=== PATIENT | female | born 1955 | race Caucasian/White ===

== ENCOUNTER → 2018-02-02 10:32 | Outpatient (CLI) | payer OTHER, SELFPAY ==
[2018-02-02 12:29] LABS: Add Manual Diff / Slide Review NO; Basophils Percent Auto 0.5 % (0-2); Eosinophils Percent Auto 2.8 % (2-4); Hematocrit 42.9 % (36-46); Hemoglobin 14.9 g/dL (12.0-16.0); Lymphocytes Percent Auto 44.3 % (25-40); Mean Corpuscular HGB Conc 34.7 % (30-36); Mean Corpuscular Hemoglobin 29.7 PG (26-34); Mean Corpuscular Volume 85.5 fL (80-100); Monocytes Percent Auto 5.2 % (3-14); Neutrophils Absolute Auto 4600 /uL (3000-5900); Neutrophils Percent Auto 47.2 % (50-75); Platelet Count 288 X10^3/uL (150-400); Red Blood Cell Count 5.02 X10^6/uL (4.0-5.2); Red Cell Distribution Width 13.3 % (11.6-14.8); White Blood Cell Count 9.8 X10^3/uL (4.5-11.0)
[2018-02-02 12:55] LABS: Erythrocyte Sedimentation Rate 4 MM/HR (0-20)
[2018-02-02 13:50] LABS: Alanine Aminotransferase 84 IU/L (9-52); Albumin 4.4 g/dL (3.5-5.0); Albumin Globulin Ratio 1.5 (1.0-2.8); Alkaline Phosphatase 64 U/L (38-126); Aspartate Aminotransferase 87 IU/L (14-36); Bilirubin Total 0.4 mg/dL (0.2-1.3); Blood Urea Nitrogen 12 mg/dL (7-17); C-Reactive Protein Quant 0.6 mg/dL (<1.0); Calcium 9.8 mg/dL (8.4-10.2); Carbon Dioxide 26 mmol/L (22-32); Chloride 103 mmol/L (98-107); Estimated Glomerular Filt Rate > 60.0 mL/min (>60); Globulin 2.9 g/dL (1.7-4.1); Glucose 102 mg/dL (80-110); HEMOLYSIS < 15 (0-50); Potassium 4.8 mmol/L (3.4-5.1); Sodium 143 mmol/L (137-145); Total Protein 7.3 g/dL (6.3-8.2)
== END ==
PROVIDERS: Visit Provider Ophthalmology
DX: G43.909 Migraine, unspecified, not intractable, without status migrainosus (principal)
CPT/HCPCS: 36415; 80053; 85025; 85651; 86140

== ENCOUNTER → 2018-02-06 07:07 | Outpatient (CLI) | payer OTHER, SELFPAY ==
--- NOTE | 2018-02-06 | DI.MRI.S_ITS ---
PROCEDURE: MR ANGIO HEAD WO CON INDICATIONS: Intermittent visual disturbances TECHNIQUE: Noncontrast axial 3-D [id number] MR angiogram, with 3-dimensional maximum intensity projection (MIP) reformats of the internal carotid arteries and posterior circulation then performed. COMPARISON: None. FINDINGS: Image quality: Excellent. Anterior circulation: Intracranial internal carotid arteries demonstrate normal size and intraluminal flow signal. The flow within the paired anterior cerebral arteries is normal and symmetric. The flow within the middle cerebral arteries is normal and symmetric. The anterior communicating artery is seen. No stenoses, occlusions, or aneurysms. Posterior circulation: Visualized portions of the vertebral arteries demonstrate normal caliber, and join to form a normal appearing basilar artery. The flow within the posterior cerebral arteries is normal and symmetric. No stenoses, occlusions, or aneurysms. IMPRESSION: Negative examination with no evidence of vascular occlusion, stenosis or dissection. Dictated by: Yesica Chinchilla MD, PhD on 02/06/2018 at 9:21 Approved by: Yesica Chinchilla MD, PhD on 02/06/2018 at 9:23
--- NOTE | 2018-02-06 | DI.MRI.S_ITS ---
PROCEDURE: MR HEAD/BRAIN WO CON INDICATIONS: amaurosis fugax TECHNIQUE: Noncontrast axial T1 spin echo, axial T2 fast spin echo, sagittal and axial FLAIR, coronal T2 fast spin echo, axial gradient echo, axial diffusion and ADC through the brain. COMPARISON: None. FINDINGS: Image quality: Excellent. CSF Spaces: Basal cisterns are patent. No extra-axial fluid collections. Ventricles are normal in shape. Mild, diffuse prominence of CSF space. Brain: No intracranial masses or hemorrhage. Rg/white matter interface is normal. Brainstem appears normal. Diffusion-weighted images demonstrate no acute ischemic insult. Mild periventricular and subcortical white matter chronic microvascular ischemic changes. No areas of encephalomalacia. Normal intravascular flow voids are present. Skull and face: Calvarium has normal marrow signal. Orbits appear normal. Sinuses: Mild bilateral maxillary sinus mucosal thickening. The mastoids are clear. IMPRESSION: 1. No acute intracranial disease process. 2. No areas of acute or chronic infarction. 3. Mild, diffuse cerebral volume loss. 4. Mild periventricular and subcortical white matter chronic microvascular ischemic changes. Dictated by: Yesica Chinchilla MD, PhD on 02/06/2018 at 9:58 Approved by: Yesica Chinchilla MD, PhD on 02/06/2018 at 10:02
== END ==
PROVIDERS: Family Provider Family Medicine; PCP Family Medicine; Visit Provider Ophthalmology
DX: G45.3 Amaurosis fugax (principal)
CPT/HCPCS: 70544; 70551

== ENCOUNTER → 2018-05-16 15:38 | Outpatient (CLI) | payer OTHER, SELFPAY | DX: Z23 Encounter for immunization (principal) | CPT/HCPCS: 90471; 90686 ==

== ENCOUNTER → 2018-12-19 06:59 | Outpatient (CLI) | payer OTHER, SELFPAY ==
[2018-12-19 07:43] LABS: Add Manual Diff / Slide Review NO; Basophils Absolute Auto 0 /uL (0-100); Basophils Percent Auto 0.5 % (0-2); Eosinophils Absolute Auto 200 /uL (0-450); Eosinophils Percent Auto 2.2 % (2-4); Hematocrit 41.6 % (36-46); Hemoglobin 14.3 g/dL (12.0-16.0); Lymphocytes Absolute Auto 3500 /uL (1100-4500); Lymphocytes Percent Auto 45.2 % (25-40); Mean Corpuscular HGB Conc 34.3 % (30-36); Mean Corpuscular Hemoglobin 29.4 PG (26-34); Mean Corpuscular Volume 85.6 fL (80-100); Monocytes Absolute Auto 400 /uL (0-900); Monocytes Percent Auto 4.9 % (3-14); Neutrophils Absolute Auto 3600 /uL (1500-7000); Neutrophils Percent Auto 47.2 % (50-75); Platelet Count 277 X10^3/uL (150-400); Red Blood Cell Count 4.86 X10^6/uL (4.0-5.2); Red Cell Distribution Width 13.3 % (11.6-14.8); White Blood Cell Count 7.6 X10^3/uL (4.5-11.0)
[2018-12-19 07:52] LABS: Alanine Aminotransferase 40 IU/L (9-52); Albumin 4.2 g/dL (3.5-5.0); Albumin Globulin Ratio 1.4 (1.0-2.8); Alkaline Phosphatase 48 U/L (38-126); Aspartate Aminotransferase 48 IU/L (14-36); Bilirubin Total 0.4 mg/dL (0.2-1.3); Blood Urea Nitrogen 13 mg/dL (7-17); Calcium 8.9 mg/dL (8.4-10.2); Carbon Dioxide 29 mmol/L (22-32); Chloride 102 mmol/L (98-107); Estimated Glomerular Filt Rate > 60.0 mL/min (>60); Globulin 2.9 g/dL (1.7-4.1); Glucose 148 mg/dL (80-110); HEMOLYSIS < 15 (0-50); Potassium 3.9 mmol/L (3.4-5.1); Sodium 140 mmol/L (137-145); Total Protein 7.1 g/dL (6.3-8.2)
[2018-12-19 08:22] LABS: Hemoglobin A1C% w Est Avg Glu 6.4 % (4.0-6.0)
== END ==
PROVIDERS: Family Provider Family Medicine; PCP Family Medicine; Visit Provider Family Medicine
DX: E11.9 Type 2 diabetes mellitus without complications (principal); R53.1 Weakness; Z00.00 Encounter for general adult medical examination without abnormal findings
CPT/HCPCS: 36415; 80053; 83036; 85025

== ENCOUNTER → 2019-05-29 11:25 | Outpatient (CLI) | payer OTHER, SELFPAY | PROVIDERS: PCP Family Medicine | DX: Z23 Encounter for immunization (principal) | CPT/HCPCS: 90471; 90686 ==

== ENCOUNTER 2019-11-07 10:30 | Outpatient (RCR) | payer OTHER, SELFPAY ==
--- NOTE | 2019-10-31 16:51 | PT.OIE ---
Current Diagnoses Unspecified disorder of synovium and tendon, left shoulder (10/31/19) Bicipital tendinitis, left shoulder (10/31/19) Abnormal posture (10/31/19) Past Medical History (Last Reviewed 12/24/18 @ 12:17 by Xiomara Diego DO) Diabetes mellitus (Chronic) Hyperlipidemia (Chronic) Past Surgical History (Last Reviewed 12/24/18 @ 12:17 by Xiomara Diego DO) Status post delivery (~1983) Status post delivery (~1985) Status post delivery (~1987) Status post cholecystectomy (~2013) Visit Care Team Role Provider Type Xiomara Diego DO Attending Provider Physician Primary Care Provider Referring Provider Specialty: [facility] Address: [address] [place] [address], [facility] Email: [email or web address] Physical Therapy Initial Evaluation PT-OP-A Visit Information Start: 10/31/19 08:38 Freq: Status: Active Protocol: Document 10/31/19 08:40 AW (Rec: 10/31/19 16:08 AW [id number]) Out-Patient Physical Therapy Visit Information Visit Information Visit Type Initial Evaluation Visit Start Time 10:30 Visit Stop Time 11:15 Total Visit Minutes 45 Visit Number 1/ Number of SALES DEMONSTRATOR Visits 0 Evaluation Information Evaluation Date 10/31/19 PT-OP-B Current Condition Start: 10/31/19 08:38 Freq: Status: Active Protocol: Document 10/31/19 08:40 AW (Rec: 10/31/19 16:08 AW [id number]) Current Condition History of Current Condition Onset Date 2 years Current Complaints shoulder pain left worse than right History of Current Condition 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 She has a history of bilateral carpal tunnel syndrome since 1 year ago and right biceps tendon tear ~3 years ago. Ibuprofen helps somewhat. She works 12 hour shifts which aggravate her shoulder pain. She characterizes the pain as achey. Lifting her arms for very long increases the ache. Achiness disturbs her sleep as her hands and arms go numb. She reports sleeping primarily on her side for ~6 hours per night but always interrupted. Prior Treatments and Tests Karolina has had steroid injections in the last year with limited relief. She had an MRI at [facility] in August, but PT did not have access to the report at time of evaluation. Treatment Goals Patient/Caregiver Goals Avoid surgery. Less pain. Currently taking 800 mg ibuprofen twice daily but would like to take less. 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 Karolina is 5 feet tall and states every shelf is high for me. Current Functional Impairments (Reported) Functional Limitations- ADL's Increased difficulty with tasks involving sustained overhead motion such as washing her hair. Also having difficulty reaching behind her back. Functional Limitations- Work/School Increased difficulty with common job tasks such as reaching overhead to hang IV meds or to lift supplies to shelves.I Personal Factors Other Personal Factors That May Effect - interrupted sleep, poor Therapy/Recovery sleep quality PT-OP-C Subjective Start: 10/31/19 08:38 Freq: Status: Active Protocol: Document 10/31/19 08:40 AW (Rec: 10/31/19 16:08 AW [id number]) Patient Questionnaires Quick Dash- Upper Extremity Quick Dash UE Score 29.5 Quick Dash UE Impairment 20 to 39% Impaired (Score 20- 39) PT-OP-H Neuro Start: 10/31/19 08:38 Freq: Status: Active Protocol: Document 10/31/19 08:40 AW (Rec: 10/31/19 16:50 AW [id number]) Sensation Evaluation Gross Sensation Gross Sensation Left UE Impaired,Right UE Impaired Comments Summary Comments Bilateral carpal tunnel syndrome with EMG records not available to this therapist. CTS was treated conservatively . Pt also reports numbness/ tingling of her upper extremities depending on sleeping position. Unable to reproduce symptoms on exam. Deep Tendon Reflex & Clonus Assessment Deep Tendon Reflex Bilateral Tricep Deep Tendon Reflex 1+ Diminished Bilateral Bicep Deep Tendon Reflex 1+ Diminished PT-OP-J Posture/Palpation/Skin Start: 10/31/19 08:38 Freq: Status: Active Protocol: Document 10/31/19 08:40 AW (Rec: 10/31/19 16:50 AW [id number]) Posture Evaluation Position Sitting Evaluation View Lateral Head/C-Spine Posture Forward Head Shoulder Posture (L) Rounded,(R) Rounded,(L) Elevated Scapula Posture (L) Protracted,(R) Protracted Comments Posture Comments Scapular medial borders >3 finger widths from spinous processes, excessively protracted. Forward head, rounded shoulders. 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 Pain provoked with left side bending. Shoulder Goniometric Range of Motion Shoulder Left Active Testing Position Sitting Flexion 95 Extension 55 Abduction 110 External Rotation at 0 degrees Abduction 35 Internal Rotation Behind Back (text) L3 Right Active Testing Position Sitting Flexion 135 Extension 65 Abduction 130 External Rotation at 0 degrees Abduction 70 Internal Rotation Behind Back (text) T10 Shoulder ROM Limitations Shoulder ROM Limitations Muscle Weakness,Pain Elbow/Forearm Range of Motion Elbow/Forearm ROM Limitations Comments Elbow flexion/estension, supination/pronation WNL PT-OP-M Strength Start: 10/31/19 08:38 Freq: Status: Active Protocol: Document 10/31/19 08:40 AW (Rec: 10/31/19 16:50 AW [id number]) Scapula Strength Scapula Manual Muscle Testing Left Elevation (C4) 5 Normal Adduction 4 Good Abduction 4 Good Depression 4 Good Shoulder Strength Shoulder Manual Muscle Testing Right Flexion 4+ Good+ Abduction (C5) 4+ Good+ External Rotation 4+ Good+ Internal Rotation 4+ Good+ Left Flexion 4- Good- Abduction (C5) 4- Good- External Rotation 3+ Fair+ Internal Rotation 4 Good PT-OP-Q Treatments Start: 10/31/19 08:38 Freq: Status: Active Protocol: Document 10/31/19 08:40 AW (Rec: 10/31/19 16:08 AW [id number]) Therapeutic Exercises Sitting Exercises scapular retraction Sitting Exercise Name scapular retraction Reps/Minutes 10 reps x 2 Standing Exercises isometric GH external rotation Standing Exercise Name isometric GH external rotation Side left Equipment Used door Reps/Minutes 12 reps isometric GH internal rotation Standing Exercise Name isometric GH internal rotation Side left Equipment Used door, stabilized Reps/Minutes 12 reps PT-OP-T Assessment and Plan Start: 10/31/19 08:38 Freq: Status: Active Protocol: Document 10/31/19 08:40 AW (Rec: 10/31/19 16:50 AW [id number]) Physical Therapy Assessment Rehab Potential Rehabilitation Potential Good Evaluation Complexity Number of Personal Factors/Comorbidities 1-2 Number of Body Systems Impaired 1-2 Clinical Presentation at Evaluation Stable Impairments Impairments Functional Activities,Pain, Posture,ROM,Sensation,Soft Tissue Mobility,Strength Goals Four Impairment ROM Short Term Goal (STG) Pt will improve active left GH flexion to 110 degrees for increased ease of self care STG Duration 12/05/2019 Topographical Field Assistant Goal (LTG) Pt will improve active left GH flexion to 125 or greater for improved ability to complete work functions LTG Duration 01/09/2020 Three Impairment 29.5% impairment on quickDASH Short Term Goal (STG) Pt will score 22% or less impairment on QuickDASH to demonstrate improved daily function STG Duration 12/05/2019 Penitentiary Goal (LTG) Pt will score 14% or less impairment on QuickDASH to demonstrate improved daily function LTG Duration 01/09/2020 Two Impairment difficulty reaching overhead Short Term Goal (STG) Pt will be able to hang IV meds with right or left arm without increase in pain STG Duration 12/05/2019 Penitentiary Goal (LTG) Pt will be able to lift 10 pounds overhead to improve her ability to lift supplies to high shelves at work LTG Duration 01/09/2020 One Impairment Pt has no HEP Short Term Goal (STG) Pt will be independent with HEP for support of therapy services provided in clinic STG Duration 12/05/2019 Topographical Field Assistant Goal (LTG) Pt will be independent with maintenance HEP to sustain gains made with therapy LTG Duration 01/09/2020 Assessment Summary Assessment Karolina presents to outpatient PT as a low complexity evaluation with complaints of bilateral shoulder pain (left greater than right) of insidious onset, worsening over the past two years. 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 On exam, impairments include decreased GH ROM bilaterally with significant impairments in left GH active flexion, abduction, and rotation as well as strength impairments in all planes. Habitual postures are also contributing to ongoing pain. These impairments are degrading her ability to perform her work functions and to manage her ADL's. She will benefit from skilled PT to address these impairments improve her ability to participate in ADL' s and work life. Physical Therapy Plan Frequency and Duration Frequency of Treatment 2x/Week Duration of Treatment 10 weeks Plan of Care Start Date 10/31/19 Plan of Care End Date 01/09/20 Therapeutic Interventions Therapeutic Interventions Home Exercise Program,Joint Mobilizations,Manual Therapy, Neuromuscular Re-education, Patient/Caregiver Education, Self-Care/Home Management, Sensory Integration,Soft Tissue Mobilization,Taping, Therapeutic Activities, Therapeutic Exercises Modalities Cold Pack/Ice Massage,Electric Stimulation Next Visit Focus/Plan Next Note Type Treatment Note Next Visit Plan - assess response to initial HEP - assess needs for manual therapy - progress ther ex as tolerated
--- NOTE | 2019-10-31 16:52 | PT.OPPOC ---
Physical, Occupational & Speech Therapy At [facility] Current Diagnoses Unspecified disorder of synovium and tendon, left shoulder (10/31/19) Bicipital tendinitis, left shoulder (10/31/19) Abnormal posture (10/31/19) Visit Care Team Role Provider Type Xiomara Diego DO Attending Provider Physician Primary Care Provider Referring Provider Specialty: [facility] Address: [address] [place] [address], [facility] [place], [address] Email: [email or web address] Plan Of Care PT-OP-T Assessment and Plan Start: 10/31/19 08:38 Freq: Status: Active Protocol: Document 10/31/19 08:40 AW (Rec: 10/31/19 16:50 AW [id number]) Physical Therapy Assessment Rehab Potential Rehabilitation Potential Good Evaluation Complexity Number of Personal Factors/Comorbidities 1-2 Number of Body Systems Impaired 1-2 Clinical Presentation at Evaluation Stable Impairments Impairments Functional Activities,Pain, Posture,ROM,Sensation,Soft Tissue Mobility,Strength Goals Four Impairment ROM Short Term Goal (STG) Pt will improve active left GH flexion to 110 degrees for increased ease of self care STG Duration 12/05/2019 Propeller Layout Worker Goal (LTG) Pt will improve active left GH flexion to 125 or greater for improved ability to complete work functions LTG Duration 01/09/2020 Three Impairment 29.5% impairment on quickDASH Short Term Goal (STG) Pt will score 22% or less impairment on QuickDASH to demonstrate improved daily function STG Duration 12/05/2019 Propeller Layout Worker Goal (LTG) Pt will score 14% or less impairment on QuickDASH to demonstrate improved daily function LTG Duration 01/09/2020 Two Impairment difficulty reaching overhead Short Term Goal (STG) Pt will be able to hang IV meds with right or left arm without increase in pain STG Duration 12/05/2019 Propeller Layout Worker Goal (LTG) Pt will be able to lift 10 pounds overhead to improve her ability to lift supplies to high shelves at work LTG Duration 01/09/2020 One Impairment Pt has no HEP Short Term Goal (STG) Pt will be independent with HEP for support of therapy services provided in clinic STG Duration 12/05/2019 Detention Goal (LTG) Pt will be independent with maintenance HEP to sustain gains made with therapy LTG Duration 01/09/2020 Assessment Summary Assessment Karolina presents to outpatient PT as a low complexity evaluation with complaints of bilateral shoulder pain (left greater than right) of insidious onset, worsening over the past two years. 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 On exam, impairments include decreased GH ROM bilaterally with significant impairments in left GH active flexion, abduction, and rotation as well as strength impairments in all planes. Habitual postures are also contributing to ongoing pain. These impairments are degrading her ability to perform her work functions and to manage her ADL's. She will benefit from skilled PT to address these impairments improve her ability to participate in ADL' s and work life. Physical Therapy Plan Frequency and Duration Frequency of Treatment 2x/Week Duration of Treatment 10 weeks Plan of Care Start Date 10/31/19 Plan of Care End Date 01/09/20 Therapeutic Interventions Therapeutic Interventions Home Exercise Program,Joint Mobilizations,Manual Therapy, Neuromuscular Re-education, Patient/Caregiver Education, Self-Care/Home Management, Sensory Integration,Soft Tissue Mobilization,Taping, Therapeutic Activities, Therapeutic Exercises Modalities Cold Pack/Ice Massage,Electric Stimulation Next Visit Focus/Plan Next Note Type Treatment Note Next Visit Plan - assess response to initial HEP - assess needs for manual therapy - progress ther ex as tolerated Plan of Care Dates Plan of Care Start Date 10/31/19 Plan of Care End Date 01/09/20 Electronically Signed by: Celina Way, PT 10/31/19 0665 Please Sign and Return: I have reviewed this Plan of Care and certify that the skilled therapy services above are required to meet the patient?s needs. Physician Signature Date Printed Name and Credentials Clinical Instructor Signature Printed Name and Credentials
--- NOTE | 2019-11-05 08:45 | PT-OP ANOTE ---
Pt called and cancelled prior to today's appt, conflict with work schedule. PMO ANALYST called and left message reminding next appt with her PT on 11/07/19 at 1030.
--- NOTE | 2019-11-07 11:52 | PT.OTN ---
Current Diagnoses Unspecified disorder of synovium and tendon, left shoulder (11/07/19) Bicipital tendinitis, left shoulder (11/07/19) Abnormal posture (11/07/19) Physical Therapy Treatment Note PT-OP-A Visit Information Start: 10/31/19 08:38 Freq: Status: Active Protocol: Document 11/07/19 10:31 AW (Rec: 11/07/19 11:52 AW [id number]) Out-Patient Physical Therapy Visit Information Visit Information Visit Type Treatment Note Visit Start Time 10:30 Visit Stop Time 11:15 Total Visit Minutes 45 Visit Number 2/6 Evaluation Information Evaluation Date 10/31/19 PT-OP-B Current Condition Start: 10/31/19 08:38 Freq: Status: Active Protocol: Document 10/31/19 08:40 AW (Rec: 10/31/19 16:08 AW [id number]) Current Condition History of Current Condition Onset Date 2 years Current Complaints shoulder pain left worse than right History of Current Condition 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 She has a history of bilateral carpal tunnel syndrome since 1 year ago and right biceps tendon tear ~3 years ago. Ibuprofen helps somewhat. She works 12 hour shifts which aggravate her shoulder pain. She characterizes the pain as achey. Lifting her arms for very long increases the ache. Achiness disturbs her sleep as her hands and arms go numb. She reports sleeping primarily on her side for ~6 hours per night but always interrupted. Prior Treatments and Tests Karolina has had steroid injections in the last year with limited relief. She had an MRI at [facility] in August, but PT did not have access to the report at time of evaluation. Treatment Goals Patient/Caregiver Goals Avoid surgery. Less pain. Currently taking 800 mg ibuprofen twice daily but would like to take less. 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 Karolina is 5 feet tall and states every shelf is high for me. Current Functional Impairments (Reported) Functional Limitations- ADL's Increased difficulty with tasks involving sustained overhead motion such as washing her hair. Also having difficulty reaching behind her back. Functional Limitations- Work/School Increased difficulty with common job tasks such as reaching overhead to hang IV meds or to lift supplies to shelves.I Personal Factors Other Personal Factors That May Effect - interrupted sleep, poor Therapy/Recovery sleep quality PT-OP-C Subjective Start: 10/31/19 08:38 Freq: Status: Active Protocol: Document 11/07/19 10:31 AW (Rec: 11/07/19 11:52 AW [id number]) OP-PT Subjective Patient Comments Patient Comments Pt has been working 16 hour and longer shifts due to understaffing but states she has been able to work on her HEP almost daily and already feels more aware of her posture, especially during work at the computer. resisted ER with level 1 TB - cues for scap retract rows shoulder extension PT-OP-H Neuro Start: 10/31/19 08:38 Freq: Status: Active Protocol: Document 10/31/19 08:40 AW (Rec: 10/31/19 16:50 AW [id number]) Sensation Evaluation Gross Sensation Gross Sensation Left UE Impaired,Right UE Impaired Comments Summary Comments Bilateral carpal tunnel syndrome with EMG records not available to this therapist. CTS was treated conservatively . Pt also reports numbness/ tingling of her upper extremities depending on sleeping position. Unable to reproduce symptoms on exam. Deep Tendon Reflex & Clonus Assessment Deep Tendon Reflex Bilateral Tricep Deep Tendon Reflex 1+ Diminished Bilateral Bicep Deep Tendon Reflex 1+ Diminished PT-OP-J Posture/Palpation/Skin Start: 10/31/19 08:38 Freq: Status: Active Protocol: Document 10/31/19 08:40 AW (Rec: 10/31/19 16:50 AW [id number]) Posture Evaluation Position Sitting Evaluation View Lateral Head/C-Spine Posture Forward Head Shoulder Posture (L) Rounded,(R) Rounded,(L) Elevated Scapula Posture (L) Protracted,(R) Protracted Comments Posture Comments Scapular medial borders >3 finger widths from spinous processes, excessively protracted. Forward head, rounded shoulders. 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 Pain provoked with left side bending. Shoulder Goniometric Range of Motion Shoulder Left Active Testing Position Sitting Flexion 95 Extension 55 Abduction 110 External Rotation at 0 degrees Abduction 35 Internal Rotation Behind Back (text) L3 Right Active Testing Position Sitting Flexion 135 Extension 65 Abduction 130 External Rotation at 0 degrees Abduction 70 Internal Rotation Behind Back (text) T10 Shoulder ROM Limitations Shoulder ROM Limitations Muscle Weakness,Pain Elbow/Forearm Range of Motion Elbow/Forearm ROM Limitations Comments Elbow flexion/estension, supination/pronation WNL PT-OP-M Strength Start: 10/31/19 08:38 Freq: Status: Active Protocol: Document 10/31/19 08:40 AW (Rec: 10/31/19 16:50 AW [id number]) Scapula Strength Scapula Manual Muscle Testing Left Elevation (C4) 5 Normal Adduction 4 Good Abduction 4 Good Depression 4 Good Shoulder Strength Shoulder Manual Muscle Testing Right Flexion 4+ Good+ Abduction (C5) 4+ Good+ External Rotation 4+ Good+ Internal Rotation 4+ Good+ Left Flexion 4- Good- Abduction (C5) 4- Good- External Rotation 3+ Fair+ Internal Rotation 4 Good PT-OP-Q Treatments Start: 10/31/19 08:38 Freq: Status: Active Protocol: Document 11/07/19 10:31 AW (Rec: 11/07/19 11:52 AW [id number]) Therapeutic Exercises Supine Exercises AAROM abduction Supine Exercise Name AAROM abduction Side left Equipment Used dowel Reps/Minutes 2 minutes Comments cues to avoid painful range AAROM flexion Supine Exercise Name AAROM flexion Side left Equipment Used dowel Reps/Minutes 2 minutes Sitting Exercises resisted external rotation Sitting Exercise Name resisted external rotation Side bilateral Resistance level 1 Equipment Used TB Reps/Minutes 10 reps x 2 Comments cues to reduce tension on band or to decrease ER ROM to tolerance cervical retraction Sitting Exercise Name cervical retraction Equipment Used towel Reps/Minutes 10 reps x 2 Comments towel at base of c-spine held with tension in front of trunk levator scap stretch Sitting Exercise Name levator scap stretch Side bilateral Reps/Minutes 2 minutes upper trap stretch Sitting Exercise Name upper trap stretch Side bilateral Reps/Minutes 2 minutes Comments cues for contralateral shoulder depression pulleys Sitting Exercise Name AAROM flexion, abduction, scaption Reps/Minutes 4 minutes Comments cues to avoid painful range Standing Exercises long walk Standing Exercise Name long walk Side bilateral Resistance 3# Equipment Used dumbbells Reps/Minutes 50 foot lap x 2 Comments to facilitate rotator cuff activation isometric ER/IR walkout Standing Exercise Name isometric ER/IR walkout Side left Resistance level 1 Equipment Used TB Comments poorly tolerated; discontinued resisted GH extension Standing Exercise Name resisted GH extension Side bilateral Resistance level 1 Equipment Used TB Reps/Minutes 10 reps x 2 resisted rows Standing Exercise Name resisted rows Side bilateral Resistance level 1 Equipment Used TB Reps/Minutes 10 reps x 2 Comments cues for scap retraction Manual Therapy Treatment Soft Tissue Mobilization cervical paraspinals/suboccipitals Body Location cervical paraspinals/ suboccipitals Mobilization Type Myofascial Release,Sustained Pressure Intensity/Depth Moderate Body Position Hooklying upper traps/lev scap Body Location upper traps/lev scap Mobilization Type Myofascial Release,Sustained Pressure Intensity/Depth Moderate Body Position Hooklying PT-OP-T Assessment and Plan Start: 10/31/19 08:38 Freq: Status: Active Protocol: Document 11/07/19 10:31 AW (Rec: 11/07/19 11:52 AW [id number]) Physical Therapy Assessment Goals Four Impairment ROM Short Term Goal (STG) Pt will improve active left GH flexion to 110 degrees for increased ease of self care STG Duration 12/05/2019 Intermediate Goal (LTG) Pt will improve active left GH flexion to 125 or greater for improved ability to complete work functions LTG Duration 01/09/2020 Three Impairment 29.5% impairment on quickDASH Short Term Goal (STG) Pt will score 22% or less impairment on QuickDASH to demonstrate improved daily function STG Duration 12/05/2019 Intermediate Goal (LTG) Pt will score 14% or less impairment on QuickDASH to demonstrate improved daily function LTG Duration 01/09/2020 Two Impairment difficulty reaching overhead Short Term Goal (STG) Pt will be able to hang IV meds with right or left arm without increase in pain STG Duration 12/05/2019 Urgent Care Technician Goal (LTG) Pt will be able to lift 10 pounds overhead to improve her ability to lift supplies to high shelves at work LTG Duration 01/09/2020 One Impairment Pt has no HEP Short Term Goal (STG) Pt will be independent with HEP for support of therapy services provided in clinic STG Duration 12/05/2019 Intermediate Goal (LTG) Pt will be independent with maintenance HEP to sustain gains made with therapy LTG Duration 01/09/2020 Assessment Summary Assessment Karolina has increased awareness of habitual posture after one week of limited HEP. Tolerance for AAROM is limited and pt has a tendency to push through pain, requiring frequent cues to stay out of painful range. She presents with a noticable step off at her cervical- thoracic junction indicating impairment in thoracic extension and will benefit from therapy focused on increasing thoracic extension in order to facilitate upper extremity elevation. Physical Therapy Plan Frequency and Duration Frequency of Treatment 2x/Week Duration of Treatment 10 weeks Plan of Care Start Date 10/31/19 Plan of Care End Date 01/09/20 Therapeutic Interventions Therapeutic Interventions Home Exercise Program,Joint Mobilizations,Manual Therapy, Neuromuscular Re-education, Patient/Caregiver Education, Self-Care/Home Management, Sensory Integration,Soft Tissue Mobilization,Taping, Therapeutic Activities, Therapeutic Exercises Modalities Cold Pack/Ice Massage,Electric Stimulation Next Visit Focus/Plan Next Note Type Treatment Note Next Visit Plan - assess response to HEP - progress ther ex as tolerated - progress thoracic extension
--- NOTE | 2020-01-30 12:50 | PT.OPDS ---
Current Diagnoses Unspecified disorder of synovium and tendon, left shoulder (11/07/19) Bicipital tendinitis, left shoulder (11/07/19) Abnormal posture (11/07/19) Visit Care Team Role Provider Type Xiomara Diego DO Attending Provider Physician Primary Care Provider Referring Provider Specialty: Family Practice Address: [address] [place] [address] [place], [address] Email: 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 She has a history of bilateral carpal tunnel syndrome since 1 year ago and right biceps tendon tear ~3 years ago. Ibuprofen helps somewhat. She works 12 hour shifts which aggravate her shoulder pain. She characterizes the pain as achey. Lifting her arms for very long increases the ache. Achiness disturbs her sleep as her hands and arms go numb. She reports sleeping primarily on her side for ~6 hours per night but always interrupted. Prior Treatments and Tests Karolina has had steroid injections in the last year with limited relief. She had an MRI at [facility] in August, but PT did not have access to the report at time of evaluation. Treatment Goals Patient/Caregiver Goals Avoid surgery. Less pain. Currently taking 800 mg ibuprofen twice daily but would like to take less. 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 Karolina is 5 feet tall and states every shelf is high for me. Current Functional Impairments (Reported) Functional Limitations- ADL's Increased difficulty with tasks involving sustained overhead motion such as washing her hair. Also having difficulty reaching behind her back. Functional Limitations- Work/School Increased difficulty with common job tasks such as reaching overhead to hang IV meds or to lift supplies to shelves.I Personal Factors Other Personal Factors That May Effect - interrupted sleep, poor Therapy/Recovery sleep quality PT-OP-C Subjective Start: 10/31/19 08:38 Freq: Status: Active Protocol: Document 11/07/19 10:31 AW (Rec: 11/07/19 11:52 AW [id number]) OP-PT Subjective Patient Comments Patient Comments Pt has been working 16 hour and longer shifts due to understaffing but states she has been able to work on her HEP almost daily and already feels more aware of her posture, especially during work at the computer. resisted ER with level 1 TB - cues for scap retract rows shoulder extension PT-OP-H Neuro Start: 10/31/19 08:38 Freq: Status: Active Protocol: Document 10/31/19 08:40 AW (Rec: 10/31/19 16:50 AW [id number]) Sensation Evaluation Gross Sensation Gross Sensation Left UE Impaired,Right UE Impaired Comments Summary Comments Bilateral carpal tunnel syndrome with EMG records not available to this therapist. CTS was treated conservatively . Pt also reports numbness/ tingling of her upper extremities depending on sleeping position. Unable to reproduce symptoms on exam. Deep Tendon Reflex & Clonus Assessment Deep Tendon Reflex Bilateral Tricep Deep Tendon Reflex 1+ Diminished Bilateral Bicep Deep Tendon Reflex 1+ Diminished PT-OP-J Posture/Palpation/Skin Start: 10/31/19 08:38 Freq: Status: Active Protocol: Document 10/31/19 08:40 AW (Rec: 10/31/19 16:50 AW [id number]) Posture Evaluation Position Sitting Evaluation View Lateral Head/C-Spine Posture Forward Head Shoulder Posture (L) Rounded,(R) Rounded,(L) Elevated Scapula Posture (L) Protracted,(R) Protracted Comments Posture Comments Scapular medial borders >3 finger widths from spinous processes, excessively protracted. Forward head, rounded shoulders. 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 Pain provoked with left side bending. Shoulder Goniometric Range of Motion Shoulder Left Active Testing Position Sitting Flexion 95 Extension 55 Abduction 110 External Rotation at 0 degrees Abduction 35 Internal Rotation Behind Back (text) L3 Right Active Testing Position Sitting Flexion 135 Extension 65 Abduction 130 External Rotation at 0 degrees Abduction 70 Internal Rotation Behind Back (text) T10 Shoulder ROM Limitations Shoulder ROM Limitations Muscle Weakness,Pain Elbow/Forearm Range of Motion Elbow/Forearm ROM Limitations Comments Elbow flexion/estension, supination/pronation WNL PT-OP-M Strength Start: 10/31/19 08:38 Freq: Status: Active Protocol: Document 10/31/19 08:40 AW (Rec: 10/31/19 16:50 AW [id number]) Scapula Strength Scapula Manual Muscle Testing Left Elevation (C4) 5 Normal Adduction 4 Good Abduction 4 Good Depression 4 Good Shoulder Strength Shoulder Manual Muscle Testing Right Flexion 4+ Good+ Abduction (C5) 4+ Good+ External Rotation 4+ Good+ Internal Rotation 4+ Good+ Left Flexion 4- Good- Abduction (C5) 4- Good- External Rotation 3+ Fair+ Internal Rotation 4 Good PT-OP-T Assessment and Plan Start: 10/31/19 08:38 Freq: Status: Active Protocol: Document 01/30/20 12:48 AW (Rec: 04/17/20 12:50 AW [id number]) Physical Therapy Assessment Rehab Potential Rehabilitation Potential Good Evaluation Complexity Number of Personal Factors/Comorbidities 1-2 Number of Body Systems Impaired 1-2 Clinical Presentation at Evaluation Stable Impairments Impairments Functional Activities,Pain, Posture,ROM,Sensation,Soft Tissue Mobility,Strength Goals Four Impairment ROM Short Term Goal (STG) Pt will improve active left GH flexion to 110 degrees for increased ease of self care STG Duration 12/05/2019 Compliance Quality Performance Analyst Goal (LTG) Pt will improve active left GH flexion to 125 or greater for improved ability to complete work functions LTG Duration 01/09/2020 Three Impairment 29.5% impairment on quickDASH Short Term Goal (STG) Pt will score 22% or less impairment on QuickDASH to demonstrate improved daily function STG Duration 12/05/2019 [facility] Goal (LTG) Pt will score 14% or less impairment on QuickDASH to demonstrate improved daily function LTG Duration 01/09/2020 Two Impairment difficulty reaching overhead Short Term Goal (STG) Pt will be able to hang IV meds with right or left arm without increase in pain STG Duration 12/05/2019 [facility] Goal (LTG) Pt will be able to lift 10 pounds overhead to improve her ability to lift supplies to high shelves at work LTG Duration 01/09/2020 One Impairment Pt has no HEP Short Term Goal (STG) Pt will be independent with HEP for support of therapy services provided in clinic STG Duration 12/05/2019 [facility] Goal (LTG) Pt will be independent with maintenance HEP to sustain gains made with therapy LTG Duration 01/09/2020 Assessment Summary Assessment Pt requests discharge from therapy services Physical Therapy Plan Discharge Physical Therapy Discharge Reasons Patient Request Discharge Comments Pt not seen since October due to COVID 19 shutdown. Pt called to request discharge from this plan of care.
== END 2020-04-23 09:02 ==
LOC: PHYS 10:30
PROVIDERS: PCP Family Medicine; Referring Provider Family Medicine; Visit Provider Family Medicine
DX: M67.912 Unspecified disorder of synovium and tendon, left shoulder (principal); M75.22 Bicipital tendinitis, left shoulder; R29.3 Abnormal posture
CPT/HCPCS: 97110; 97140; 97161

== ENCOUNTER → 2019-12-18 06:45 | Outpatient (CLI) | payer OTHER, SELFPAY ==
[2019-12-18 08:03] LABS: Add Manual Diff / Slide Review NO; Basophils Absolute Auto 0 /uL (0-100); Basophils Percent Auto 0.4 % (0-2); Eosinophils Absolute Auto 200 /uL (0-450); Eosinophils Percent Auto 2.8 % (2-4); Hematocrit 41.7 % (36-46); Hemoglobin 14.7 g/dL (12.0-16.0); Lymphocytes Absolute Auto 3600 /uL (1100-4500); Lymphocytes Percent Auto 42.7 % (25-40); Mean Corpuscular HGB Conc 35.3 % (30-36); Mean Corpuscular Hemoglobin 29.8 PG (26-34); Mean Corpuscular Volume 84.4 fL (80-100); Monocytes Absolute Auto 400 /uL (0-900); Monocytes Percent Auto 4.7 % (3-14); Neutrophils Absolute Auto 4100 /uL (1500-7000); Neutrophils Percent Auto 49.4 % (50-75); Platelet Count 278 X10^3/uL (150-400); Red Blood Cell Count 4.94 X10^6/uL (4.0-5.2); Red Cell Distribution Width 13.3 % (11.6-14.8); White Blood Cell Count 8.3 X10^3/uL (4.5-11.0)
[2019-12-18 08:22] LABS: Alanine Aminotransferase 59 IU/L (<35); Albumin 4.2 g/dL (3.5-5.0); Albumin Globulin Ratio 1.4 (1.0-2.8); Alkaline Phosphatase 55 U/L (38-126); Aspartate Aminotransferase 76 IU/L (14-36); BUN Creatinine Ratio 32.7 (6-22); Bilirubin Total 0.4 mg/dL (0.2-1.3); Blood Urea Nitrogen 16 mg/dL (7-17); Calcium 9.7 mg/dL (8.4-10.2); Carbon Dioxide 25 mmol/L (22-32); Chloride 103 mmol/L (98-107); Cholesterol 181 mg/dL (140-199); Estimated Glomerular Filt Rate > 60.0 mL/min (>60); Globulin 2.9 g/dL (1.7-4.1); Glucose 158 mg/dL (80-110); HDL Cholesterol 36 mg/dL (40-60); HEMOLYSIS < 15 (0-50); LDL Cholesterol Calculated 82 mg/dL (<100); Potassium 4.5 mmol/L (3.4-5.1); Sodium 138 mmol/L (137-145); Total Protein 7.1 g/dL (6.3-8.2); Triglycerides 314 mg/dL (35-150)
[2019-12-18 08:24] LABS: Hemoglobin A1C% w Est Avg Glu 7.7 % (4.0-6.0)
== END ==
PROVIDERS: PCP Family Medicine; Referring Provider Family Medicine; Visit Provider Family Medicine
DX: E11.9 Type 2 diabetes mellitus without complications (principal); R94.5 Abnormal results of liver function studies
CPT/HCPCS: 36415; 80053; 80061; 83036; 85025

== ENCOUNTER → 2019-12-20 09:07 | Outpatient (CLI) | payer OTHER, SELFPAY ==
[2019-12-20 15:04] LABS: Creatinine Urine Random 99.8 mg/dL
[2019-12-20 15:07] LABS: Microalbumin Urine Random 3.4 mg/dL (0-1.6)
== END ==
PROVIDERS: PCP Family Medicine; Visit Provider Family Medicine
DX: E11.9 Type 2 diabetes mellitus without complications (principal)
CPT/HCPCS: 82043; 82570

== ENCOUNTER → 2020-07-02 09:36 | Outpatient (CLI) | payer OTHER, SELFPAY ==
[2020-07-02 10:26] LABS: Influenza A - CEPHEID Flu A NEGATIVE (NEGATIVE); Influenza B - CEPHEID Flu B NEGATIVE (NEGATIVE)
[2020-07-03 11:36] LABS: COVID19 Sendout Detected (Not Detected)
== END ==
PROVIDERS: PCP Family Medicine; Visit Provider Physician Assistant
DX: U07.1 COVID-19 (principal); R05 Cough
CPT/HCPCS: 87502; 87635

== ENCOUNTER 2020-07-02 20:36 | Inpatient (IN) | payer OTHER, SELFPAY ==
[2020-07-02] VITALS (7 sets, daily range): BP systolic 140–155; BP diastolic 74–85; PULSE 68–76; RESP 20–25; TEMP 37.4; O2SAT 90–96
--- NOTE | 2020-07-02 20:46 | DI.RAD.S_ITS ---
PROCEDURE: XR CHEST 1V INDICATIONS: suspected sepsis TECHNIQUE: One view of the chest was acquired. COMPARISON: None. FINDINGS: Surgical changes and devices: None. Lungs and pleura: Subtle patchy opacities are present within the peripheral mid right lung. The lungs are otherwise clear. No pleural effusion or pneumothorax. Mediastinum: Mediastinal contours appear normal. Heart size is normal. Bones and chest wall: No suspicious bony lesions. Overlying soft tissues appear unremarkable. IMPRESSION: Mild right mid lung airspace opacities suggesting aspiration or infection. Short interval followup is recommended with resolution of the patient's symptoms to ensure there is no underlying pulmonary pathology. Dictated by: Sherin Brooke M.D. on 07/02/2020 at 21:39 Approved by: Sherin Brokoe M.D. on 07/02/2020 at 21:40
[2020-07-02] MEDS: SODIUM CHLORIDE 0.9% 1,000 ML 1000 ML IV ×3 (20:56→22:50)
[2020-07-02 21:16] LABS: Basophils Absolute Auto 0 /uL (0-100); Eosinophils Absolute Auto 0 /uL (0-450); Monocytes Absolute Auto 600 /uL (0-900)
[2020-07-02 21:22] LABS: Add Manual Diff / Slide Review NO; Basophils Percent Auto 0.6 % (0-2); Hematocrit 42.8 % (36-46); Hemoglobin 14.6 g/dL (12.0-16.0); Lymphocytes Absolute Auto 1300 /uL (1100-4500); Lymphocytes Percent Auto 21.8 % (25-40); Mean Corpuscular HGB Conc 34.1 % (30-36); Mean Corpuscular Hemoglobin 28.6 PG (26-34); Mean Corpuscular Volume 83.9 fL (80-100); Monocytes Percent Auto 9.9 % (3-14); Neutrophils Absolute Auto 4200 /uL (1500-7000); Neutrophils Percent Auto 67.7 % (50-75); Platelet Count 183 X10^3/uL (150-400); Red Cell Distribution Width 12.5 % (11.6-14.8); White Blood Cell Count 6.1 X10^3/uL (4.5-11.0)
[2020-07-02 21:24] LABS: PTT Partial Thromboplastin Tim 32 SECONDS (26.4-36.2)
[2020-07-02 21:29] LABS: Lactate (Lactic Acid) 2.1 mmol/L (0.7-2.1)
[2020-07-02 21:35] LABS: Alanine Aminotransferase 68 IU/L (<35); Albumin 3.8 g/dL (3.5-5.0); Albumin Globulin Ratio 1.1 (1.0-2.8); Alkaline Phosphatase 67 U/L (38-126); Aspartate Aminotransferase 130 IU/L (14-36); Bilirubin Total 0.6 mg/dL (0.2-1.3); Blood Urea Nitrogen 21 mg/dL (7-17); Calcium 8.1 mg/dL (8.4-10.2); Carbon Dioxide 25 mmol/L (22-32); Chloride 98 mmol/L (98-107); Estimated Glomerular Filt Rate > 60.0 mL/min (>60); Globulin 3.4 g/dL (1.7-4.1); Glucose 168 mg/dL (80-110); HEMOLYSIS < 15 (0-50); Lipase 457 U/L (23-300); Potassium 3.8 mmol/L (3.4-5.1); Sodium 131 mmol/L (137-145); Total Protein 7.2 g/dL (6.3-8.2)
--- NOTE | 2020-07-02 21:35 | ED_ITS ---
HPI - Nausea/Vomiting/Diarrhea General Chief complaint: Nausea/Vomiting/Diarrhea Stated complaint: possible Covid, cough Time Seen by Provider: 07/02/20 21:34 Source: patient Mode of arrival: Wheelchair Limitations: no limitations History of Present Illness HPI Narrative: The patient, and her , have been ill for about 1 week. The recently visit [facility], she had a cough before going to [place]. Since she has developed headache, sore throat, and continued cough. Over the last 3 days she has developed nausea, and vomiting and diarrhea. She is in now due to headache, and simply feeling ill all over. Her has similar symptoms, not nearly as severe. Before coming in he noted her O2 sat at home was 89%. She has an occasional productive cough. She has minimal cough here, she does complain of dyspnea. She is diabetic. She has no underlying respiratory illness. She has no chest pain. She is not currently experiencing fever. Her son has since become ill, he tested positive for COVID-19 today. Related Data Home Medications Medication Instructions Recorded Confirmed aspirin 81 mg tablet,delayed 81 mg PO DAILY 03/08/18 07/03/20 release Previous Rx's Medication Instructions Recorded insulin glargine 100 unit/mL (3 30 unit SUBCUT DAILY #30 ml 02/22/20 mL) subcutaneous pen metformin 850 mg tablet 850 mg PO TID #270 tab 02/22/20 metoprolol succinate 25 mg 25 mg PO DAILY #90 tab 02/22/20 tablet,extended release 24 hr pen needle, diabetic 32 gauge x See Rx Instructions .ROUTE 02/22/2032 .COMPLEX #600 each benzonatate 100 mg capsule 100 mg PO BID-TID PRN #30 cap 07/02/20 Allergies Allergy/AdvReac Type Severity Reaction Status Date / Time No Known Drug Allergies Allergy Verified 07/02/20 09:02 Review of Systems Constitutional Constitutional: Reports chills, Denies fever(s), Reports headache(s), Reports lethargy and Reports weakness Comments: Loss of sense of smell and taste. Eyes Eyes: Denies change in vision ENT Ears, Nose, Mouth, and Throat: Reports headache(s) and Reports sore throat Cardiovascular Cardiovascular: Denies chest pain, Denies syncope, Reports lightheadedness and Denies dyspnea Respiratory Respiratory: Reports cough and Denies dyspnea Gastrointestinal Gastrointestinal: Denies abdominal pain, Reports diarrhea, Reports nausea and Reports vomiting Genitourinary Comments: No urinary complaint Musculoskeletal Musculoskeletal: Denies back pain Comments: No extremity pain Integumentary/Breasts Skin/Breast: Denies pruritus, Denies erythema and Denies rash Neurologic Neurologic: Denies confusion, Denies syncope, Reports headache(s) and Reports weakness Psychiatric Psychiatric: Denies confusion and Denies depression Patient History Medical History Cough (Acute) Diabetes mellitus (Chronic) History of ventricular tachycardia (Acute) Hyperlipidemia (Chronic) Surgical History Status post delivery (~1983) Status post delivery (~1985) Status post delivery (~1987) Status post cholecystectomy (~2013) Family History Mother No problems noted. Social History marital status: household members: significant other occupational status: employed ([employer]) Smoking Status: Never smoker alcohol intake: current substance use type: does not use Smoking Status: Never smoker alcohol intake frequency: 0-2 drinks per day Substance Use Type: does not use Exam Initial Vital Signs Initial Vital Signs: Vital Signs Temperature 99.4 F 07/02/20 20:41 Pulse Rate 68 07/02/20 20:41 Respiratory Rate 20 07/02/20 20:41 Blood Pressure 155/74 H 07/02/20 20:41 Pulse Oximetry 91 07/02/20 20:41 Const General: cooperative and well developed Nutritional Appearance: well nourished Other: She appears quite fatigued. [facility] Head: normocephalic and atraumatic Mouth: thickened frenulum (Dry oral mucosa) Throat: posterior oropharynx normal Eyes General: appearance normal, both eyes and all related structures Eyelids: eyelids normal Conjunctivae: conjunctivae normal Sclera: sclerae normal Pupils: PERRL EOM: EOM intact bilaterally Neck Neck: supple and No lymphadenopathy Resp Other: Slight RML rales. Overall air movement is good. Cardio Rate: regular rate Rhythm: regular rhythm Heart Sounds: S1 normal, S2 normal, no click, no gallops, no murmurs and no rubs Pulses: normal peripheral pulses GI Inspection: non-distended Palpation: soft, no hepatosplenomegaly, No guarding, No pulsatile mass and No tender Auscultation: normal bowel sounds Back/Spine/Pelvis Back: No CVA tenderness Skin General: no rashes or lesions noted and No petechiae Neuro General: patient alert, patient oriented x3, gait normal and no focal motor deficits Speech: speech normal Extrem General: full ROM, no pedal edema and no calf tenderness Psych Mental Status: mental status grossly normal Speech and Movement: speech and movement normal Course Course Course Narrative: The patient was aggressively hydrated, it took 3 L of fluids for her to produce urine. She has a general myalgia, headache, and dyspnea. Her O2 sats on room air for general maintained 91-94%. This seemed to improved with IV hydration. However, she was generally drowsy. Her O2 sats would drop to 89-90% when sleeping. She was given oxygen. Chest x-ray was consistent with a right-sided pneumonia, consistent with the exam. She is COVID-19 positive. Initial lactic acid level 2.1 improved to 1.3 with IVFs. Despite the our inter ventions, she is quite fatigued with concerns for respiratory status. She is clearly dehydrated. I discussed her situation with the hospitalist, SHARA Alvarado. She will be admitted for continued IV hydration, as well as attention to the COVID-19. Orders Ordered: ED Orders 07/02/20 22:00 Arterial Blood Gas Stat 07/02/20 23:43 EKG-12 Lead Stat Acetaminophen (Tylenol) 650 mg PO Q6HR PRN PRN Reason: Fever/Mild Pain (1-3) Albuterol (Ventolin Hfa (Vent/Covid R/O)) 2 puff INH RTQ4HR PRN PRN Reason: Shortness Of Breath Aspirin (Aspirin Ec) 81 mg PO DAILY [facility] Dexamethasone (Decadron) 6 mg IV DAILY [facility] Stop: 07/11/20 09:01 Last Admin: 07/03/20 04:40 Dose: 6 mg Documented by: CMCFARL Dextrose ([email or web address]) 25 gm IV PRN PRN; Protocol PRN Reason: Hypoglycemia Heparin Sodium (Porcine) (Heparin) 5,000 unit SUBCUT BID [facility] Last Admin: 07/03/20 00:52 Dose: 5,000 unit Documented by: MICHAEL Sodium Chloride (Normal Saline 0.9%) 1,000 mls @ 100 mls/hr IV CONT JOSE DAVID Last Admin: 07/03/20 00:52 Dose: 100 mls/hr Documented by: MICHAEL Remdesivir 100 mg/ Sodium (Chloride) 250 mls @ 250 mls/hr IV DAILY [facility] Ceftriaxone Sodium/Dextrose (Rocephin) 1 gm in 50 mls @ 100 mls/hr IV Q24H JOSE DAVID Last Admin: 07/03/20 04:52 Dose: 100 mls/hr Documented by: FIORDALIZAFARL Insulin Aspart (Novolog Flexpen) 0 unit SUBCUT ACHS JOSE DAVID; Protocol Insulin Glargine (Lantus Solostar (Pen)) 30 unit SUBCUT DAILY [facility] Metoprolol Succinate (Toprol Xl) 25 mg PO DAILY [facility] Naloxone HCl (Narcan) 0.2 mg IV Q2MIN PRN PRN Reason: Opiate Reversal Ondansetron HCl (Zofran) 4 mg IV Q6HR PRN PRN Reason: Nausea And Vomiting Pantoprazole Sodium (Protonix) 40 mg IV DAILY [facility] Discontinued Medications Sodium Chloride (Normal Saline 0.9%) 1,000 mls @ 1,000 mls/hr IV BOLUS ONE Stop: 07/02/20 21:45 Last Infusion: 07/02/20 22:12 Dose: 0 mls/hr Documented by: Admin: 07/02/20 20:56 Dose: 1,000 mls/hr Documented by: GINNY Sodium Chloride (Normal Saline 0.9%) 1,000 mls @ 1,000 mls/hr IV BOLUS ONE Stop: 07/02/20 22:34 Last Infusion: 07/02/20 22:50 Dose: 0 mls/hr Documented by: Admin: 07/02/20 21:41 Dose: 1,000 mls/hr Documented by: GINNY Sodium Chloride (Normal Saline 0.9%) 1,000 mls @ 1,000 mls/hr IV BOLUS ONE Stop: 07/03/20 00:34 Last Infusion: 07/02/20 23:49 Dose: 0 mls/hr Documented by: Admin: 07/02/20 22:50 Dose: 1,000 mls/hr Documented by: GINNY Remdesivir 200 mg/ Sodium (Chloride) 250 mls @ 250 mls/hr IV NOW ONE Stop: 07/03/20 02:57 Ketorolac Tromethamine (Toradol) 30 mg IV NOW ONE Stop: 07/02/20 21:52 Last Admin: 07/02/20 21:56 Dose: 30 mg Documented by: KEVEN Ondansetron HCl (Zofran) 4 mg IV NOW ONE Stop: 07/02/20 21:36 Last Admin: 07/02/20 21:40 Dose: 4 mg Documented by: GINNY Vital Signs Vital signs: Vital Signs - 8 hr 07/02/20 23:00 07/02/20 23:30 Pulse Rate 75 72 Respiratory Rate 23 24 Blood Pressure 140/85 Pulse Oximetry 95 94 MDM - Nausea/Vomiting/Diarrhea Lab Data Result diagrams: 07/03/20 05:21 07/03/20 05:21 Labs: Lab Results 07/02/20 07/02/20 07/02/20 Range/Units 20:51 21:06 21:06 WBC 6.1 (4.5-11.0) X10^3/uL RBC 5.10 (4.0-5.2) X10^6/uL Hgb 14.6 (12.0-16.0) g/dL Hct 42.8 (36-46) % MCV 83.9 (80-100) fL MCH 28.6 (26-34) PG MCHC 34.1 (30-36) % RDW 12.5 (11.6-14.8) % Plt Count 183 (150-400) X10^3/uL Neut % (Auto) 67.7 (50-75) % Lymph % (Auto) 21.8 L (25-40) % Wilkin % (Auto) 9.9 (3-14) % Eos % (Auto) 0.0 L (2-4) % Baso % (Auto) 0.6 (0-2) % Neut # (Auto) 4200 (5782-4758) /uL Lymph # (Auto) 1300 (1510-2879) /uL Wilkin # (Auto) 600 (0-900) /uL Eos # (Auto) 0 (0-450) /uL Baso # (Auto) 0 (0-100) /uL PT 12.0 (10.1-12.7) SECONDS INR 1.0 (0.9-1.3) APTT 32 (26.4-36.2) SECONDS D-Dimer (<230) ng/mL ABG pH (7.35-7.45) ABG pCO2 (35-45) mmHg ABG pO2 (80-100) mmHg ABG HCO3 (22-26) mmol/L ABG Total CO2 (21-31) mmol/L ABG O2 Saturation (95-100) % ABG Base Excess (-2-2) mmol/L FiO2 Sodium (137-145) mmol/L Potassium (3.4-5.1) mmol/L Chloride (98-107) mmol/L Carbon Dioxide (22-32) mmol/L BUN (7-17) mg/dL Creatinine (0.52-1.04) mg/dL Estimated GFR (>60) mL/min BUN/Creatinine Ratio (6-22) Glucose (80-110) mg/dL Lactate (0.7-2.1) mmol/L Calcium (8.4-10.2) mg/dL Total Bilirubin (0.2-1.3) mg/dL AST (14-36) IU/L ALT (<35) IU/L Alkaline Phosphatase (38-126) U/L Lactate Dehydrogenase (313-618) U/L Total Creatine Kinase (30-135) U/L CK-MB (CK-2) (<2.37) ng/mL CK-MB (CK-2) Rel Index (1.5-5.0) % Troponin I (0.01-0.034) ng/mL C-Reactive Protein (<1.0) mg/dL Total Protein (6.3-8.2) g/dL Albumin (3.5-5.0) g/dL Globulin (1.7-4.1) g/dL Albumin/Globulin Ratio (1.0-2.8) Lipase (23-300) U/L Procalcitonin (<0.5) ng/mL COVID-19 PCR Positive H (Negative) 07/02/20 07/02/20 07/02/20 Range/Units 21:06 21:06 21:06 WBC (4.5-11.0) X10^3/uL RBC (4.0-5.2) X10^6/uL Hgb (12.0-16.0) g/dL Hct (36-46) % MCV (80-100) fL MCH (26-34) PG MCHC (30-36) % RDW (11.6-14.8) % Plt Count (150-400) X10^3/uL Neut % (Auto) (50-75) % Lymph % (Auto) (25-40) % Wilkin % (Auto) (3-14) % Eos % (Auto) (2-4) % Baso % (Auto) (0-2) % Neut # (Auto) (1975-0476) /uL Lymph # (Auto) (8026-3311) /uL Wilkin # (Auto) (0-900) /uL Eos # (Auto) (0-450) /uL Baso # (Auto) (0-100) /uL PT (10.1-12.7) SECONDS INR (0.9-1.3) APTT (26.4-36.2) SECONDS D-Dimer (<230) ng/mL ABG pH (7.35-7.45) ABG pCO2 (35-45) mmHg ABG pO2 (80-100) mmHg ABG HCO3 (22-26) mmol/L ABG Total CO2 (21-31) mmol/L ABG O2 Saturation (95-100) % ABG Base Excess (-2-2) mmol/L FiO2 Sodium 131 L (137-145) mmol/L Potassium 3.8 (3.4-5.1) mmol/L Chloride 98 (98-107) mmol/L Carbon Dioxide 25 (22-32) mmol/L BUN 21 H (7-17) mg/dL Creatinine 0.60 (0.52-1.04) mg/dL Estimated GFR > 60.0 (>60) mL/min BUN/Creatinine Ratio 35.0 H (6-22) Glucose 168 H (80-110) mg/dL Lactate 2.1 (0.7-2.1) mmol/L Calcium 8.1 L (8.4-10.2) mg/dL Total Bilirubin 0.6 (0.2-1.3) mg/dL AST 130 H (14-36) IU/L ALT 68 H (<35) IU/L Alkaline Phosphatase 67 (38-126) U/L Lactate Dehydrogenase (313-618) U/L Total Creatine Kinase (30-135) U/L CK-MB (CK-2) (<2.37) ng/mL CK-MB (CK-2) Rel Index (1.5-5.0) % Troponin I (0.01-0.034) ng/mL C-Reactive Protein (<1.0) mg/dL Total Protein 7.2 (6.3-8.2) g/dL Albumin 3.8 (3.5-5.0) g/dL Globulin 3.4 (1.7-4.1) g/dL Albumin/Globulin Ratio 1.1 (1.0-2.8) Lipase 457 H (23-300) U/L Procalcitonin < 0.05 (<0.5) ng/mL COVID-19 PCR (Negative) 07/02/20 07/02/20 07/02/20 Range/Units 21:06 21:06 22:00 WBC (4.5-11.0) X10^3/uL RBC (4.0-5.2) X10^6/uL Hgb (12.0-16.0) g/dL Hct (36-46) % MCV (80-100) fL MCH (26-34) PG MCHC (30-36) % RDW (11.6-14.8) % Plt Count (150-400) X10^3/uL Neut % (Auto) (50-75) % Lymph % (Auto) (25-40) % Wilkin % (Auto) (3-14) % Eos % (Auto) (2-4) % Baso % (Auto) (0-2) % Neut # (Auto) (2339-2150) /uL Lymph # (Auto) (6380-2919) /uL Wilkin # (Auto) (0-900) /uL Eos # (Auto) (0-450) /uL Baso # (Auto) (0-100) /uL PT (10.1-12.7) SECONDS INR (0.9-1.3) APTT (26.4-36.2) SECONDS D-Dimer 244 H (<230) ng/mL ABG pH 7.36 (7.35-7.45) ABG pCO2 35.4 (35-45) mmHg ABG pO2 67 L (80-100) mmHg ABG HCO3 20 L (22-26) mmol/L ABG Total CO2 21 (21-31) mmol/L ABG O2 Saturation 92 L (95-100) % ABG Base Excess -6.0 L (-2-2) mmol/L FiO2 0.21 Sodium (137-145) mmol/L Potassium (3.4-5.1) mmol/L Chloride (98-107) mmol/L Carbon Dioxide (22-32) mmol/L BUN (7-17) mg/dL Creatinine (0.52-1.04) mg/dL Estimated GFR (>60) mL/min BUN/Creatinine Ratio (6-22) Glucose (80-110) mg/dL Lactate (0.7-2.1) mmol/L Calcium (8.4-10.2) mg/dL Total Bilirubin (0.2-1.3) mg/dL AST (14-36) IU/L ALT (<35) IU/L Alkaline Phosphatase (38-126) U/L Lactate Dehydrogenase 716 H (313-618) U/L Total Creatine Kinase 130 (30-135) U/L CK-MB (CK-2) 0.82 (<2.37) ng/mL CK-MB (CK-2) Rel Index 0.6 L (1.5-5.0) % Troponin I < 0.012 (0.01-0.034) ng/mL C-Reactive Protein 5.2 H (<1.0) mg/dL Total Protein (6.3-8.2) g/dL Albumin (3.5-5.0) g/dL Globulin (1.7-4.1) g/dL Albumin/Globulin Ratio (1.0-2.8) Lipase (23-300) U/L Procalcitonin (<0.5) ng/mL COVID-19 PCR (Negative) 07/02/20 Range/Units 23:00 WBC (4.5-11.0) X10^3/uL RBC (4.0-5.2) X10^6/uL Hgb (12.0-16.0) g/dL Hct (36-46) % MCV (80-100) fL MCH (26-34) PG MCHC (30-36) % RDW (11.6-14.8) % Plt Count (150-400) X10^3/uL Neut % (Auto) (50-75) % Lymph % (Auto) (25-40) % Wilkin % (Auto) (3-14) % Eos % (Auto) (2-4) % Baso % (Auto) (0-2) % Neut # (Auto) (8502-4150) /uL Lymph # (Auto) (3082-3663) /uL Wilkin # (Auto) (0-900) /uL Eos # (Auto) (0-450) /uL Baso # (Auto) (0-100) /uL PT (10.1-12.7) SECONDS INR (0.9-1.3) APTT (26.4-36.2) SECONDS D-Dimer (<230) ng/mL ABG pH (7.35-7.45) ABG pCO2 (35-45) mmHg ABG pO2 (80-100) mmHg ABG HCO3 (22-26) mmol/L ABG Total CO2 (21-31) mmol/L ABG O2 Saturation (95-100) % ABG Base Excess (-2-2) mmol/L FiO2 Sodium (137-145) mmol/L Potassium (3.4-5.1) mmol/L Chloride (98-107) mmol/L Carbon Dioxide (22-32) mmol/L BUN (7-17) mg/dL Creatinine (0.52-1.04) mg/dL Estimated GFR (>60) mL/min BUN/Creatinine Ratio (6-22) Glucose (80-110) mg/dL Lactate 1.3 (0.7-2.1) mmol/L Calcium (8.4-10.2) mg/dL Total Bilirubin (0.2-1.3) mg/dL AST (14-36) IU/L ALT (<35) IU/L Alkaline Phosphatase (38-126) U/L Lactate Dehydrogenase (313-618) U/L Total Creatine Kinase (30-135) U/L CK-MB (CK-2) (<2.37) ng/mL CK-MB (CK-2) Rel Index (1.5-5.0) % Troponin I (0.01-0.034) ng/mL C-Reactive Protein (<1.0) mg/dL Total Protein (6.3-8.2) g/dL Albumin (3.5-5.0) g/dL Globulin (1.7-4.1) g/dL Albumin/Globulin Ratio (1.0-2.8) Lipase (23-300) U/L Procalcitonin (<0.5) ng/mL COVID-19 PCR (Negative) Imaging Data Chest x-ray: Radiologist's Impression: RML infiltrate ECG Data Attestation: I personally reviewed and interpreted this ECG as follows: (Normal sinus rhythm rate 75 beats per minute. Normal intervals. No ectopy. No acute ST T wave changes. Normal study.) Critical Care Time Critical Care Time Critical Care Time: Yes Total Critical Care Time: 45 Attestation: Critical care time included the initial assessment of the patient and interview with her . Time included review of records, review of lab and x-ray information. I discussed the clinical findings and decisions made with the patient, intervention consulted with the admitting hospitalist. Discharge Plan Departure Patient Disposition: Admitted As Inpatient Clinical Impression: COVID-19, Nausea vomiting and diarrhea, Acute dehydration Type 2 diabetes mellitus without complication Qualifiers: Diabetes mellitus technician terminal and repeater insulin use: with technician terminal and repeater use Qualified Code(s): E11.9 - Type 2 diabetes mellitus without complications Admit Date/Time: 07/02/20 23:50 Admit Provider: Luigi Alvarado
[2020-07-02] MEDS: ONDANSETRON 4 MG/2 ML INJ IV (21:40)
[2020-07-02 21:46] LABS: Procalcitonin < 0.05 ng/mL (<0.5)
[2020-07-02] MEDS: KETOROLAC 60 MG/2 ML VIAL 30 MG IV (21:56)
[2020-07-02 22:07] LABS: Fractionated Inspired Oxygen 0.21; HCO3 ABG 20 mmol/L (22-26); Oxygen Saturation ABG 92 % (95-100); PCO2 ABG 35.4 mmHg (35-45); PO2 ABG 67 mmHg (80-100); TCO2 ABG 21 mmol/L (21-31); pH ABG 7.36 (7.35-7.45)
[2020-07-02 22:09] LABS: COVID19 -Nasal RAPID POSITIVE (Negative)
--- NOTE | 2020-07-02 23:00 | PC.NURSE ---
Reports feeling less achy after toradol administration. RA sats 90-91%, placed on 1L and sats now 94-95%.
[2020-07-02 23:08] LABS: Reflexed Lactate in 2 Hours Y
[2020-07-02 23:47] LABS: Lactate 2HR (Lactic Acid Rflx) 1.3 mmol/L (0.7-2.1)
[2020-07-03] VITALS (17 sets, daily range): BP systolic 113–137; BP diastolic 57–84; PULSE 62–75; RESP 17–30; TEMP 36–36.9; O2SAT 90–98; BMI 28.2
[2020-07-03 00:03] LABS: D Dimer 244 ng/mL (<230)
[2020-07-03 00:05] LABS: C-Reactive Protein Quant 5.2 mg/dL (<1.0); Creatine Kinase 130 U/L (30-135); Lactate Dehydrogenase 716 U/L (313-618)
[2020-07-03 00:14] LABS: Troponin I < 0.012 ng/mL (0.01-0.034)
[2020-07-03 00:16] LABS: CKMB % Relative Index 0.6 % (1.5-5.0); Creatine Kinase MB 0.82 ng/mL (<2.37)
[2020-07-03] MEDS: HEPARIN 5,000 UNIT/ML VIAL 5000 UNIT SUBCUT ×3 (00:52→20:52)
[2020-07-03] MEDS: SODIUM CHLORIDE 0.9% 1,000 ML 100 ML IV (00:52)
[2020-07-03 01:45] LABS: RBC Urine None Seen (0-5/HPF)
[2020-07-03 01:47] LABS: Bilirubin Urine UA NEGATIVE (NEGATIVE); Color Urine UA YELLOW; Glucose Urine UA NEGATIVE (Negative); Ketones Urine UA 1+ (NEGATIVE); Leukocyte Esterase Urine UA TRACE (NEGATIVE); Nitrite Urine UA POSITIVE (Negative); Occult Blood Urine UA TRACE-LYSED (Negative); Protein Urine UA NEGATIVE (Negative); Urobilinogen Urine UA 0.2 E.U./dL (0.2); pH Urine UA 5.5 (4.5-8.0)
[2020-07-03 01:48] LABS: Appearance Urine UA Slightly Cloudy; Bacteria Urine Many (>30); Squamous Epithelial Cell Urine 0-1 /HPF (0-5/HPF); WBC Urine 1-5/HPF (0-5/HPF)
[2020-07-03 01:49] LABS: Culture Indicated Urine Specimen Cultured
--- NOTE | 2020-07-03 04:05 | PM.HP.1 ---
History of Present Illness History of Present Illness Date Patient Seen: 07/03/20 Time Patient Seen: 02:49 Chief complaint: possible Covid, cough Narrative: Ms. Driss Tom is a 64-year-old female patient with history significant for diabetes, hyperlipidemia and history of ventricular tachycardia who presents to the ER with shortness of breath and cough with nausea vomiting and diarrhea. The patient stents that she travel to [place] 1 week ago and had a cough prior to departing. The patient subsequently developed 1 week of sore throat continued coughing and 3 days ago developed nausea vomiting and diarrhea. Patient no complaints of headache body aches. The patient's son has tested positive for COVID-19 and the Patient's has similar symptoms. The patient reports no complaints of fevers or chills and had no chest pain or palpitations. He has had cough for 1 week which is nonproductive described as dry and raspy. The patient has had nausea vomiting and diarrhea as noted above. She denies hematemesis, hematochezia or melena. The patient is normally independent in all functions of daily living uses no assistive devices. Upon arrival to the ER the patient's temperature 99.4?, heart rate of 68, blood pressure 155/74, respiratory rate 20 saturating 91% on room air. A chest x-ray obtained finding subtle patchy opacitieswithin the peripheral mid right lung with the remainder of the lung appearing clear. On laboratory analysis the patient has white count of 6.1, hemoglobin 14.6, hematocrit 42.8 and platelets of 183. PT is 12 with an INR of 1.0 and a PTT of 32 with an elevated D-dimer 244. Blood gas obtained finding pH of 7.36, pCO2 of 35.4, PO2 67, bicarbonate 20 and a base excess of -6. On chemistry sodium is low 131 and BUN is high at 21 with a creatinine 0.60. BUN creatinine ratio is 365 and nonfasting glucose is 168. Patient's total bilirubin is 0.6 with an elevated AST 130 ALT at 68. Alkaline phosphatase 67, LDH is elevated at 7.6. Total CK is 130 with an MB of 0.82 an index is 0.6. Troponin is less than 0.012. C-reactive protein is elevated at 5.2. Lipase is mildly elevated at 457. Procalcitonin is negative at less than 0.05 urinalysis is positive for ketones and nitrites and trace leukocyte esterase with many bacteria and reflex to culture. COVID-19 screening is positive. The patient is admitted to the hospital with dyspnea and hypoxemia and severe dehydration in the setting of COVID-19 infection. Patient History Medical History Cough (Acute) Diabetes mellitus (Chronic) History of ventricular tachycardia (Acute) Hyperlipidemia (Chronic) Surgical History Status post delivery (~1983) Status post delivery (~1985) Status post delivery (~1987) Status post cholecystectomy (~2013) Family & Social History Family History Mother No problems noted. Social History: household members significant other Prior Living Arrangements House Safety & Behavioral: Feels Safe in Current Yes Environment Been Physically Hurt or No Threatened By a Person Suicidal Ideation Description None Suicide Plan Description No Plan Tobacco & Substance use: Smoking Status Never smoker alcohol intake current alcohol intake frequency 0-2 drinks per day Substance Use Type does not use Meds Home Medications and Allergies Home Medications Medication Instructions Recorded Confirmed Type aspirin 81 mg tablet,delayed 81 mg PO DAILY 03/08/18 07/02/20 History release insulin glargine 100 unit/mL (3 30 unit SUBCUT DAILY #30 ml 02/22/20 07/03/20 Rx mL) subcutaneous pen metformin 850 mg tablet 850 mg PO TID #270 tab 02/22/20 07/02/20 Rx metoprolol succinate 25 mg 25 mg PO DAILY #90 tab 02/22/20 07/03/20 Rx tablet,extended release 24 hr pen needle, diabetic 32 gauge x See Rx Instructions .ROUTE 02/22/20 07/03/20 Rx 5/32 .COMPLEX #600 each benzonatate 100 mg capsule 100 mg PO BID-TID PRN #30 cap 07/02/20 07/02/20 Rx Allergies Allergy/AdvReac Type Severity Reaction Status Date / Time No Known Drug Allergies Allergy Verified 07/02/20 09:02 Review of Systems Review of Systems ROS: Yes All systems reviewed with the patient and are negative except as otherwise documented Exam Vital Signs (past 8 hours): - 07/02/20 20:41 07/02/20 21:20 07/02/20 21:30 Temperature 99.4 F Pulse Rate 68 69 71 Respiratory Rate 20 23 25 H Blood Pressure 155/74 H Pulse Oximetry 91 92 92 07/02/20 22:00 07/02/20 22:30 07/02/20 23:00 Temperature Pulse Rate 75 76 75 Respiratory Rate 25 H 24 23 Blood Pressure Pulse Oximetry 93 90 L 95 07/02/20 23:30 07/03/20 00:00 07/03/20 00:30 Temperature Pulse Rate 72 75 74 Respiratory Rate 24 25 H 23 Blood Pressure 140/85 Pulse Oximetry 94 91 94 07/03/20 00:44 07/03/20 00:45 07/03/20 01:03 Temperature 97.4 F L Pulse Rate 73 70 75 Respiratory Rate 30 H 18 24 Blood Pressure 137/69 132/72 137/69 Pulse Oximetry 94 94 95 07/03/20 01:04 Temperature Pulse Rate Respiratory Rate Blood Pressure 128/72 Pulse Oximetry 93 Oxygen Delivery Method Room Air Oxygen Flow Rate 1 Narrative Exam Narrative: GENERAL APPEARANCE: well developed, well nourished, in no acute distress. HEENT: Normocephalic, PERRLA, conjunctiva clear, EOMs intact without nystagmus, no sinus tenderness to percussion, no rhinorrhea, mucous membranes are moist and pink without lesions or exudate. NECK/THYROID: neck supple, no JVD, no carotid bruit, no thyromegaly, trachea midline. LYMPH NODES: no cervical or supraclavicular lymphadenopathy. SKIN: [place], warm and dry, no visible lesions, rashes. HEART: regular rate and rhythm, S1-S2, no murmur, no rubs or gallops, brisk capillary refill, no edema LUNGS: Breath sounds with central coarseness, no crackles or wheezing, nonproductive cough present CHEST: Symmetrical movement, no accessory muscle use, good tidal volume. ABDOMEN: Soft, no distention, no abdominal tenderness, no guarding or peritoneal signs, no organomegaly, no flank or suprapubic tenderness, active bowel tones. BACK: Normal curvature, nontender to palpation, no CVA tenderness on percussion EXTREMITIES: moves all extremities, strength is 5/5 and symmetrical, no deformities or joint effusions. NEUROLOGIC: AAO x4, no focal neurologic deficits, cranial nerves II-XII grossly intact, sensation intact to light touch, hearing grossly normal to speech. PSYCH: Good judgment, good insight, linear thought process, cooperative, appropriate with stable behavior Objective Labs Result Diagrams: 07/02/20 21:06 07/02/20 21:06 Labs: Laboratory Results - last 24 hr 07/02/20 07/02/20 07/02/20 20:51 21:06 21:06 WBC 6.1 RBC 5.10 Hgb 14.6 Hct 42.8 MCV 83.9 MCH 28.6 MCHC 34.1 RDW 12.5 Plt Count 183 Neut % (Auto) 67.7 Lymph % (Auto) 21.8 L [place] % (Auto) 9.9 Eos % (Auto) 0.0 L Baso % (Auto) 0.6 Neut # (Auto) 4200 Lymph # (Auto) 1300 [place] # (Auto) 600 Eos # (Auto) 0 Baso # (Auto) 0 PT 12.0 INR 1.0 APTT 32 D-Dimer ABG pH ABG pCO2 ABG pO2 ABG HCO3 ABG Total CO2 ABG O2 Saturation ABG Base Excess FiO2 Sodium Potassium Chloride Carbon Dioxide BUN Creatinine Estimated GFR BUN/Creatinine Ratio Glucose Lactate Calcium Total Bilirubin AST ALT Alkaline Phosphatase Lactate Dehydrogenase Total Creatine Kinase CK-MB (CK-2) CK-MB (CK-2) Rel Index Troponin I C-Reactive Protein Total Protein Albumin Globulin Albumin/Globulin Ratio Lipase Procalcitonin Urine Color Urine Appearance Urine pH Ur Specific [place] Urine Protein Urine Glucose (UA) Urine Ketones Urine Occult Blood Urine Nitrate Urine Bilirubin Urine Urobilinogen Ur Leukocyte Esterase Urine RBC Urine WBC Ur Squamous Epith Cells Urine Bacteria Ur Culture Indicated? COVID-19 PCR Positive H 07/02/20 07/02/20 07/02/20 21:06 21:06 21:06 WBC RBC Hgb Hct MCV MCH MCHC RDW Plt Count Neut % (Auto) Lymph % (Auto) [place] % (Auto) Eos % (Auto) Baso % (Auto) Neut # (Auto) Lymph # (Auto) [place] # (Auto) Eos # (Auto) Baso # (Auto) PT INR APTT D-Dimer ABG pH ABG pCO2 ABG pO2 ABG HCO3 ABG Total CO2 ABG O2 Saturation ABG Base Excess FiO2 Sodium 131 L Potassium 3.8 Chloride 98 Carbon Dioxide 25 BUN 21 H Creatinine 0.60 Estimated GFR > 60.0 BUN/Creatinine Ratio 35.0 H Glucose 168 H Lactate 2.1 Calcium 8.1 L Total Bilirubin 0.6 AST 130 H ALT 68 H Alkaline Phosphatase 67 Lactate Dehydrogenase Total Creatine Kinase CK-MB (CK-2) CK-MB (CK-2) Rel Index Troponin I C-Reactive Protein Total Protein 7.2 Albumin 3.8 Globulin 3.4 Albumin/Globulin Ratio 1.1 Lipase 457 H Procalcitonin < 0.05 Urine Color Urine Appearance Urine pH Ur Specific [place] Urine Protein Urine Glucose (UA) Urine Ketones Urine Occult Blood Urine Nitrate Urine Bilirubin Urine Urobilinogen Ur Leukocyte Esterase Urine RBC Urine WBC Ur Squamous Epith Cells Urine Bacteria Ur Culture Indicated? COVID-19 PCR 07/02/20 07/02/20 07/02/20 21:06 21:06 22:00 WBC RBC Hgb Hct MCV MCH MCHC RDW Plt Count Neut % (Auto) Lymph % (Auto) [place] % (Auto) Eos % (Auto) Baso % (Auto) Neut # (Auto) Lymph # (Auto) [place] # (Auto) Eos # (Auto) Baso # (Auto) PT INR APTT D-Dimer 244 H ABG pH 7.36 ABG pCO2 35.4 ABG pO2 67 L ABG HCO3 20 L ABG Total CO2 21 ABG O2 Saturation 92 L ABG Base Excess -6.0 L FiO2 0.21 Sodium Potassium Chloride Carbon Dioxide BUN Creatinine Estimated GFR BUN/Creatinine Ratio Glucose Lactate Calcium Total Bilirubin AST ALT Alkaline Phosphatase Lactate Dehydrogenase 716 H Total Creatine Kinase 130 CK-MB (CK-2) 0.82 CK-MB (CK-2) Rel Index 0.6 L Troponin I < 0.012 C-Reactive Protein 5.2 H Total Protein Albumin Globulin Albumin/Globulin Ratio Lipase Procalcitonin Urine Color Urine Appearance Urine pH Ur Specific [place] Urine Protein Urine Glucose (UA) Urine Ketones Urine Occult Blood Urine Nitrate Urine Bilirubin Urine Urobilinogen Ur Leukocyte Esterase Urine RBC Urine WBC Ur Squamous Epith Cells Urine Bacteria Ur Culture Indicated? COVID-19 PCR 07/02/20 07/03/20 23:00 01:00 WBC RBC Hgb Hct MCV MCH MCHC RDW Plt Count Neut % (Auto) Lymph % (Auto) [place] % (Auto) Eos % (Auto) Baso % (Auto) Neut # (Auto) Lymph # (Auto) [place] # (Auto) Eos # (Auto) Baso # (Auto) PT INR APTT D-Dimer ABG pH ABG pCO2 ABG pO2 ABG HCO3 ABG Total CO2 ABG O2 Saturation ABG Base Excess FiO2 Sodium Potassium Chloride Carbon Dioxide BUN Creatinine Estimated GFR BUN/Creatinine Ratio Glucose Lactate 1.3 Calcium Total Bilirubin AST ALT Alkaline Phosphatase Lactate Dehydrogenase Total Creatine Kinase CK-MB (CK-2) CK-MB (CK-2) Rel Index Troponin I C-Reactive Protein Total Protein Albumin Globulin Albumin/Globulin Ratio Lipase Procalcitonin Urine Color Yellow Urine Appearance Slightly cloudy Urine pH 5.5 Ur Specific [place] 1.010 Urine Protein Negative Urine Glucose (UA) Negative Urine Ketones 1+ H Urine Occult Blood Trace-lysed Urine Nitrate Positive H Urine Bilirubin Negative Urine Urobilinogen 0.2 Ur Leukocyte Esterase Trace H Urine RBC None seen Urine WBC 1-5/hpf Ur Squamous Epith Cells 0-1 /hpf Urine Bacteria Many (>30) H Ur Culture Indicated? Specimen cultured COVID-19 PCR Assessment & Plan Assessment & Plan narrative: This is a 60 year 4-year-old female who presents to the ER with cough sore throat, nausea vomiting and diarrhea associated headache and body aches is found to be COVID-19 positive. 1. COVID-19 infection, acute, present on admission, active. -patient with symptoms over 1 week following her son having confirmed COVID-19 diagnosis and her with similar symptoms. -patient with oxygen saturation 91% on room air upon arrival to the ER. At the time of encounter patient is on room air saturating 90-91% and receiving supplemental oxygen. -laboratory analysis is positive for elevated D-dimer at 2:24 a.m., elevated LDH of 716, elevated CRP of 5.2. Her her white count is normal at 6.1 without shift and lymphs low at 21.8% and procalcitonin is negative at less than 0.05. -ABG finds pH of 7.36, pCO2 of 35, PO2 of 67, bicarb of 20, base excess -6 on 21% oxygen -ordered dexamethasone 6 mg IV daily for 10 days. -ordered remdesivir 200 mg now and 100 mg daily for 4 days. -requested respiratory therapy to consult evaluate and treat. -albuterol MDI 2 puffs every 4 hours as needed. 2. Severe dehydration, acute, present on admission, active. -the patient presents with ketones in her urine and has a BUN creatinine ratio of 35 0.0. -while in the ER the patient received 3000 mL of normal saline. -will continue normal saline 100 cc/hour. -patient's nausea is resolved with Zofran administered in the ER will continue Zofran 4 mg every 6 hours as needed. -patient has had no further episodes of diarrhea since admission. 3. Elevated transaminase, acute, present on admission, active. -patient with normal bilirubin 0.6 with elevated of AST of 130 an ALT at 68. Normal alkaline phosphatase 67. -elevated AST and ALT believed related to dehydration. -elevated LDH believed related to COVID-19 infection. 4. Diabetes type 2, insulin dependent, chronic, stable. -blood sugar on admission is 168. -ordered consistent carbohydrate heart healthy diet. -will continue home regimen of glargine insulin 30 units daily. -patient takes metformin 850 mg 3 times daily which will be held. -check glucose a.c. and hs and cover with low-dose range correctional insulin. -will obtain a hemoglobin A1c. VTE prophylaxis: Heparin IV fluid: Normal saline 100 cc/hour Diet: Consistent carbohydrate heart healthy Code status: Full code, patient designates her is surrogate decision maker. The patient is admitted to the hospital for treatment of COVID-19 infection requiring oxygen therapy with severe dehydration. The patient is admitted as an inpatient with expected length of stay to be greater than 2 midnights. COVID-19 COVID-19 status: Positive Result date/Date tested (Pos, Neg/Pending): 07/02/20 Scores GCS [place] coma scale eye opening: Spontaneous [place] coma scale verbal response: Orientated [place] coma scale motor response: Obey commands [place] coma scale total score: 15
[2020-07-03] MEDS: DEXAMETHASONE 10 MG/ML VIAL 6 MG IV (04:40)
[2020-07-03] MEDS: CEFTRIAXONE 1 GM/50 ML FROZ.PIGGY IV (04:52)
[2020-07-03 05:47] LABS: Add Manual Diff / Slide Review NO; Basophils Absolute Auto 0 /uL (0-100); Basophils Percent Auto 0.4 % (0-2); Eosinophils Absolute Auto 0 /uL (0-450); Hematocrit 37.2 % (36-46); Hemoglobin 12.7 g/dL (12.0-16.0); Lymphocytes Absolute Auto 1700 /uL (1100-4500); Lymphocytes Percent Auto 39.3 % (25-40); Mean Corpuscular HGB Conc 34.2 % (30-36); Mean Corpuscular Hemoglobin 28.8 PG (26-34); Mean Corpuscular Volume 84.3 fL (80-100); Monocytes Absolute Auto 400 /uL (0-900); Monocytes Percent Auto 9.1 % (3-14); Neutrophils Absolute Auto 2200 /uL (1500-7000); Neutrophils Percent Auto 51.2 % (50-75); Platelet Count 153 X10^3/uL (150-400); Red Blood Cell Count 4.42 X10^6/uL (4.0-5.2); Red Cell Distribution Width 12.7 % (11.6-14.8); White Blood Cell Count 4.4 X10^3/uL (4.5-11.0)
[2020-07-03 05:49] LABS: BUN Creatinine Ratio 29.8 (6-22); Blood Urea Nitrogen 14 mg/dL (7-17); Calcium 6.7 mg/dL (8.4-10.2); Carbon Dioxide 25 mmol/L (22-32); Chloride 109 mmol/L (98-107); Estimated Glomerular Filt Rate > 60.0 mL/min (>60); Glucose 127 mg/dL (80-110); HEMOLYSIS < 15 (0-50); Magnesium 1.4 mg/dL (1.6-2.3); Potassium 3.8 mmol/L (3.4-5.1); Sodium 136 mmol/L (137-145)
[2020-07-03 06:23] LABS: Hemoglobin A1C% w Est Avg Glu 8.5 % (4.0-6.0)
[2020-07-03] MEDS: INSULIN ASPART 100 UNIT/ML INSULN PEN SUBCUT ×3 (09:19→17:52)
[2020-07-03] MEDS: INSULIN GLARGINE 100 UNIT/ML 3ML PEN 30 UNIT SUBCUT ×2 (09:19→20:53)
[2020-07-03] MEDS: PANTOPRAZOLE 40 MG VIAL IV (09:25)
[2020-07-03] MEDS: METOPROLOL ER 25 MG TABLET PO (09:25)
[2020-07-03] MEDS: ASPIRIN EC 81 MG TABLET PO (09:25)
[2020-07-03] MEDS: REMDESIVIR 200 MG in SODIUM CHLORIDE 0.9% 210 ML 250 ML IV (09:26)
[2020-07-03] MEDS: MAGNESIUM SULFATE 1 GM in DEXTROSE 5 % IN WATER 100 ML 102 ML IV (10:46)
--- NOTE | 2020-07-03 12:00 | PC.NURSE ---
Day Shift- Pt A&OX4, able to make needs known using call light. In Isolation precautions for COVID-19+. Pt states feeling improved overall since yesterday, states feeling tired today. OOB to BR only with SBA. Pt denies shortness of breath with rest or exertion. Has intermittent dry cough, no sputum production. AE diminished with Coarseness heard throughout lung lora upon auscultation. O2 sat this AM was 98-100% on 4L NC, on continuous O2 monitor. O2 decreased to 2L NC at 0950, upon reassessment, O2 sat was 95-97% on 2L. O2 NC removed at this time Upon reassessment at 1135, O2 sat was 89-91% on RA. O2 NC 1L placed back on pt. will monitor. Pt denies nausea, however states has loss of appetite, is drinking water, tea, saved her fruit bowl from breakfast, did not eat anything else off breakfast tray. Handout on Remdesivir given to pt to read, side effects explained and course of medication. IVF stopped at 0930 per order. Pt states her urine is concentrated. Will monitor. Call light within reach.
--- NOTE | 2020-07-03 15:34 | CM.IDA ---
Initial DCP Assessment Note Patient is a 64 yo female, resident of [place]. Patient presents w/COVID-19+ pneumonia. PCP: Kristin Sood Payer: Kvng HORNE Reviewed chart. 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 Patient expects to DC back home w/her family once medically cleared, close outpt f/u as needed. Patient denies additional needs at this time. This AUT[employer] CLUB SAFETY PROGRAM COORDINATOR will remain available in case any DC needs or concerns arise. SHEFALI
--- NOTE | 2020-07-03 19:12 | PM.PN.1 ---
Subjective Subjective Date Patient Seen: 07/03/20 Interval history: Brief progress note: The patient seen and examined. She is resting in bed comfortably. She reports she feels better. She reports she never really had shortness of breath and her main complaint was malaise. She feels she could go home soon. Continue supplemental oxygen to maintain oxygen saturations > 92% and titrate off if tolerated. Patient is also being treated for UTI with ceftriaxone and urine culture pending. Plan to monitor her for the next 1-2 days due to high inflammatory markers and if she remains stable and does not decompensate she can be discharged home. Agree with admitting providers assessment and plan. Exam Vital Signs (past 8 hours): - 07/04/20 01:45 07/04/20 03:10 07/04/20 04:56 Temperature 97.6 F 98.2 F Pulse Rate 74 68 72 Respiratory Rate 16 18 16 Blood Pressure 115/58 L 118/54 L Pulse Oximetry 94 96 93 07/04/20 08:30 Temperature Pulse Rate Respiratory Rate Blood Pressure 118/54 L Pulse Oximetry Oxygen Delivery Method Nasal Cannula Oxygen Flow Rate 3 Objective Labs Result Diagrams: 07/03/20 05:21 07/03/20 05:21
[2020-07-03] MEDS: SODIUM CHLORIDE 0.9% FLUSH 10 ML IV (21:22)
[2020-07-04] VITALS (11 sets, daily range): BP systolic 115–145; BP diastolic 54–82; PULSE 58–74; RESP 14–20; TEMP 36.1–37.4; O2SAT 92–96
[2020-07-04] MEDS: ALBUTEROL HFA 200 PUFF/18 GM INH (COVID POS/VENT PTS) INH (03:10)
--- NOTE | 2020-07-04 03:30 | PC.NURSE ---
0300 Received report from GLACING MACHINE TENDER that patient's O2 has been staying around 85-88% on 1LPM. Assessed patient status. 02 bouncing between 85-89%. Increased O2 supplementation to 2.5LPM and monitored for 5 minutes. O2 samia only to 91%; goal is to have O2 above 92%. SHARA Mercado, notified and gave verbal order to call RT for breathing treatment and increase O2 as needed. 0315 Spoke with RT who administered breathing treatment and increased O2 to 3LPM. Will continue to monitor. Patient is asymptomatic, resting. No s/sx of distress.
[2020-07-04] MEDS: CEFTRIAXONE 1 GM/50 ML FROZ.PIGGY IV (04:34)
[2020-07-04] MEDS: SODIUM CHLORIDE 0.9% 250 ML 21 ML IV (04:35)
[2020-07-04] MEDS: ACETAMINOPHEN 325 MG TABLET 650 MG PO ×2 (04:51→18:37)
[2020-07-04] MEDS: DEXAMETHASONE 10 MG/ML VIAL 6 MG IV (05:38)
[2020-07-04] MEDS: PANTOPRAZOLE 40 MG VIAL IV (08:30)
[2020-07-04] MEDS: HEPARIN 5,000 UNIT/ML VIAL 5000 UNIT SUBCUT ×2 (08:30→20:29)
[2020-07-04] MEDS: METOPROLOL ER 25 MG TABLET PO (08:30)
[2020-07-04] MEDS: ASPIRIN EC 81 MG TABLET PO (08:30)
[2020-07-04] MEDS: SODIUM CHLORIDE 0.9% FLUSH 10 ML IV ×2 (08:31→20:48)
[2020-07-04] MEDS: REMDESIVIR 100 MG in SODIUM CHLORIDE 0.9% 230 ML 250 ML IV (08:40)
[2020-07-04 09:23] LABS: Add Manual Diff / Slide Review NO; Basophils Absolute Auto 0 /uL (0-100); Basophils Percent Auto 0.4 % (0-2); Eosinophils Absolute Auto 0 /uL (0-450); Hematocrit 41.6 % (36-46); Hemoglobin 14.3 g/dL (12.0-16.0); Lymphocytes Absolute Auto 2500 /uL (1100-4500); Lymphocytes Percent Auto 33.7 % (25-40); Mean Corpuscular HGB Conc 34.5 % (30-36); Monocytes Absolute Auto 400 /uL (0-900); Monocytes Percent Auto 5.4 % (3-14); Neutrophils Absolute Auto 4500 /uL (1500-7000); Neutrophils Percent Auto 60.5 % (50-75); Platelet Count 196 X10^3/uL (150-400); Red Blood Cell Count 4.95 X10^6/uL (4.0-5.2); Red Cell Distribution Width 12.8 % (11.6-14.8); White Blood Cell Count 7.5 X10^3/uL (4.5-11.0)
[2020-07-04 09:32] LABS: HEMOLYSIS < 15 (0-50); Potassium 3.5 mmol/L (3.4-5.1)
[2020-07-04 09:35] LABS: BUN Creatinine Ratio 20.8 (6-22); Blood Urea Nitrogen 11 mg/dL (7-17); Calcium 7.5 mg/dL (8.4-10.2); Carbon Dioxide 26 mmol/L (22-32); Chloride 105 mmol/L (98-107); Estimated Glomerular Filt Rate > 60.0 mL/min (>60); Glucose 122 mg/dL (80-110); Magnesium 1.7 mg/dL (1.6-2.3); Sodium 138 mmol/L (137-145)
[2020-07-04 09:55] LABS: Procalcitonin < 0.05 ng/mL (<0.5)
--- NOTE | 2020-07-04 10:37 | PM.PN.1 ---
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 She has right lung infiltrate. She tested positive for COVID. She was started on remdesivir and dexamethasone. Patient denies any further in GI symptoms. She has a cough but denies dyspnea. She has been afebrile. She had drops in her O2 sat overnight to 90% and started on O2 nasal cannula. O2 sat this a.m. is 89% on room air. O2 sat is 92-95% on 1.5 L nasal cannula. Exam Vital Signs (past 8 hours): - 07/04/20 03:10 07/04/20 04:56 07/04/20 07:52 Temperature 98.2 F 97.2 F L Pulse Rate 68 72 64 Respiratory Rate 18 16 17 Blood Pressure 118/54 L 117/57 L Pulse Oximetry 96 93 95 07/04/20 08:30 07/04/20 09:56 Temperature Pulse Rate 74 Respiratory Rate 20 Blood Pressure 118/54 L Pulse Oximetry 93 Oxygen Delivery Method Nasal Cannula Oxygen Flow Rate 3 Narrative Exam Narrative: General: Alert, cooperative and in no acute distress Lungs: Few scattered bilateral crackles, no wheeze Heart: Regular rhythm Extremities: No edema Objective Labs Result Diagrams: 07/04/20 09:12 07/04/20 09:12 Labs: Laboratory Results - last 24 hr 07/04/20 07/04/20 07/04/20 09:12 09:12 09:12 WBC 7.5 D RBC 4.95 Hgb 14.3 Hct 41.6 MCV 84.0 MCH 29.0 MCHC 34.5 RDW 12.8 Plt Count 196 Neut % (Auto) 60.5 Lymph % (Auto) 33.7 [place] % (Auto) 5.4 Eos % (Auto) 0.0 L Baso % (Auto) 0.4 Neut # (Auto) 4500 Lymph # (Auto) 2500 [place] # (Auto) 400 Eos # (Auto) 0 Baso # (Auto) 0 Sodium 138 Potassium 3.5 Chloride 105 Carbon Dioxide 26 BUN 11 Creatinine 0.53 Estimated GFR > 60.0 BUN/Creatinine Ratio 20.8 Glucose 122 H Calcium 7.5 L Magnesium 1.7 Procalcitonin < 0.05 Assessment & Plan Assessment & Plan narrative: This is a 64-year-old female who presents to the ER with cough sore throat, nausea vomiting and diarrhea associated headache and body aches is found to be COVID-19 positive. 1. COVID-19 pneumonia, acute, present on admission, active. -patient with symptoms over 1 week following her son having confirmed COVID-19 diagnosis and her with similar symptoms. -patient with oxygen saturation 91% on room air upon arrival to the ER. At the time of encounter patient is on room air saturating 89% and receiving supplemental oxygen. -laboratory analysis is positive for elevated D-dimer at 2:24 a.m., elevated LDH of 716, elevated CRP of 5.2. Her her white count is normal at 6.1 without shift and lymphs low at 21.8% and procalcitonin is negative at less than 0.05. -ABG finds pH of 7.36, pCO2 of 35, PO2 of 67, bicarb of 20, base excess -6 on 21% oxygen -dexamethasone 6 mg IV daily -remdesivir 200 mg x 1 then 100 mg daily -albuterol MDI 2 puffs every 4 hours as needed. -patient is relatively asymptomatic and possibly can discharge home tomorrow, Tuesday, after 3rd dose of remdesivir and dexamethasone 2. Severe dehydration, acute, present on admission, resolved. -the patient presents with ketones in her urine and has a BUN creatinine ratio of 35 0.0. -while in the ER the patient received 3000 mL of normal saline. -IV hep-locked 3. Elevated transaminase, acute, present on admission, active. -patient with normal bilirubin 0.6 with elevated of AST of 130 an ALT at 68. Normal alkaline phosphatase 67. -elevated AST and ALT believed related to dehydration. -elevated LDH believed related to COVID-19 infection. 4. Diabetes type 2, insulin dependent, chronic, stable. -blood sugar on admission is 168. -ordered consistent carbohydrate heart healthy diet. -will continue home regimen of glargine insulin 30 units daily. -patient takes metformin 850 mg 3 times daily which will be held. -check glucose a.c. and hs and cover with low-dose range correctional insulin. -hemoglobin A1c 8.5 VTE prophylaxis: Heparin Diet: Consistent carbohydrate heart healthy Code status: Full code, patient designates her is surrogate decision maker.
[2020-07-04] MEDS: INSULIN ASPART 100 UNIT/ML INSULN PEN SUBCUT ×2 (13:19→17:30)
[2020-07-04] MEDS: INSULIN GLARGINE 100 UNIT/ML 3ML PEN 30 UNIT SUBCUT (20:34)
[2020-07-05] VITALS (8 sets, daily range): BP systolic 123–156; BP diastolic 68–85; PULSE 60–71; RESP 16–20; TEMP 36.1–37; O2SAT 91–95
--- NOTE | 2020-07-05 04:29 | PC.NURSE ---
Addendum entered by Natalia Coughlin R.N. 07/05/20 06:46: 0545 Patient safety check: Pt sitting up in bed, O2 is 95% on 1.5LPM. Patient stated she laid prone for a little while, but couldn't seem to tolerate it very long. Addendum entered by Natalia Coughlin R.N. 07/05/20 05:16: 0500 Received notice from OPERATIONS ARCHITECT that patient's oxygen dropped down to 84% at rest, lying supine, on 2.5L. Administered dexamethasone per order, had patient sitting up, using incentive spirometer. Oxygen fluctuated between 91-95%. Advised patient to try lying prone for a while to see if that helps further increase her oxygen as gravity will assist in opening her lungs open more. Pt agreed to try. Left O2 at 1.5LPM. Original Note: 0415 Responded to oxygen saturation alarm sounding, oxygen <85%. The patient had just made a trip from her bed to the bathroom and back without her nasal cannula on, and became short of breath; intermittent, dry cough present. Instructed the patient to place her NC back on and take deep breaths, but still did not bring her oxygen above 89%. Instructed the patient to use her incentive spirometer to help open up her lungs, which brought her oxygen to 92%. Afterwards, I asked the patient if she felt she would benefit from an albuterol MDI treatment to which she agreed. Confirmed with SHARA Mercado, who also agreed. *Note: Patient's O2 dose during the above was at 1.5LPM
[2020-07-05] MEDS: ALBUTEROL HFA 200 PUFF/18 GM INH (COVID POS/VENT PTS) INH (04:30)
[2020-07-05] MEDS: DEXAMETHASONE 10 MG/ML VIAL 6 MG IV (04:45)
[2020-07-05] MEDS: CEFTRIAXONE 1 GM/50 ML FROZ.PIGGY IV (04:50)
[2020-07-05] MEDS: REMDESIVIR 100 MG in SODIUM CHLORIDE 0.9% 230 ML 250 ML IV (09:51)
[2020-07-05] MEDS: METOPROLOL ER 25 MG TABLET PO (09:51)
[2020-07-05] MEDS: ASPIRIN EC 81 MG TABLET PO (09:51)
[2020-07-05] MEDS: HEPARIN 5,000 UNIT/ML VIAL 5000 UNIT SUBCUT ×2 (09:52→21:03)
[2020-07-05] MEDS: SODIUM CHLORIDE 0.9% FLUSH 10 ML IV ×2 (09:52→21:04)
[2020-07-05] MEDS: INSULIN ASPART 100 UNIT/ML INSULN PEN SUBCUT ×3 (11:34→21:03)
--- NOTE | 2020-07-05 15:44 | PM.PN.1 ---
Subjective Subjective Date Patient Seen: 07/05/20 Interval history: The patient is a 64-year-old female admitted to the hospital for COVID-19 pneumonia. She has been symptomatic for 1 week. She presented with cough, low-grade fever, nausea vomiting and diarrhea. She has several family members who were COVID-19 positive. Patient reports she continues to be short of breath. She has significant shortness of breath with exertion. She is found to be hypoxic dropping her O2 sat to 85% with minimal exertion. Exam Vital Signs (past 8 hours): - 07/05/20 08:00 07/05/20 09:30 07/05/20 11:41 Temperature 97.8 F 98.6 F Pulse Rate 66 65 Respiratory Rate 16 17 Blood Pressure 145/85 H 156/85 H Pulse Oximetry 94 95 Oxygen Delivery Method Nasal Cannula Oxygen Flow Rate 0 Narrative Exam Narrative: Pleasant female somewhat withdrawn but in no obvious distress Lungs reveal decreased breath sounds bilaterally with occasional scattered crackle Cardiac exam: Regular rate and rhythm normal S1-S2 Abdomen: Soft and nontender Extremities no edema Objective Labs Result Diagrams: 07/04/20 09:12 07/04/20 09:12 Assessment & Plan Assessment & Plan narrative: Impression 1. Acute hypoxic respiratory failure secondary to COVID-19 pneumonia -continue remdesivir 100 mg IV daily, continue Decadron 6 mg daily -no evidence of bacterial superinfection -patient continues to be markedly hypoxic and requiring oxygen 2. UA positive for bacteria -procalcitonin negative x2 -patient is asymptomatic -this is not an infection but rather asymptomatic bacteria, will discontinue antibiotics 3. Type 2 diabetes -will continue her glargine -anticipate elevated blood sugars with Decadron -will continue correctional insulin as well 4. Hypertension -continue metoprolol Anticipate discharge home once patient is no longer hypoxic
[2020-07-05] MEDS: INSULIN GLARGINE 100 UNIT/ML 3ML PEN 30 UNIT SUBCUT (21:04)
[2020-07-06] VITALS (8 sets, daily range): BP systolic 132–159; BP diastolic 68–115; PULSE 58–93; RESP 16–25; TEMP 36–36.9; O2SAT 89–96
[2020-07-06] MEDS: INSULIN ASPART 100 UNIT/ML INSULN PEN SUBCUT ×4 (09:39→21:23)
[2020-07-06] MEDS: METOPROLOL ER 25 MG TABLET PO (09:40)
[2020-07-06] MEDS: dexAMETHasone 4 MG TABLET 6 MG PO (09:40)
[2020-07-06] MEDS: HEPARIN 5,000 UNIT/ML VIAL 5000 UNIT SUBCUT ×2 (09:40→21:23)
[2020-07-06] MEDS: ASPIRIN EC 81 MG TABLET PO (09:40)
[2020-07-06] MEDS: REMDESIVIR 100 MG in SODIUM CHLORIDE 0.9% 230 ML 250 ML IV (09:41)
[2020-07-06] MEDS: SODIUM CHLORIDE 0.9% FLUSH 10 ML IV ×2 (09:42→21:27)
[2020-07-06] MEDS: ACETAMINOPHEN 325 MG TABLET 650 MG PO (09:53)
[2020-07-06] MEDS: ALBUTEROL HFA 200 PUFF/18 GM INH (COVID POS/VENT PTS) INH ×2 (13:15→16:31)
--- NOTE | 2020-07-06 13:39 | CM.DPC ---
DCP Cont: Per MD, pt continues to de-sat with minimal excersion and continues on NC oxygen and not medically stable to d/c yet today. Per RT, will begin trials of weaning off oxygen and attempt further supine positions for pt to be more comfortable and help open up her airways. SW did not enter room or call pt at this time due to her ongoing oxygen needs and COVID 19+ precautions. Plan: SW to follow for further d/c discussion closer to discharge when pt's oxygen levels better managed and more medically appropriate. Plan of likely home with spouse pending medical progress. Ana Luisa Reyes MSW
--- NOTE | 2020-07-06 13:57 | RT ---
Patient educated on the importance of self proning, as tolerated. RT worked with patient on different proning positions to make her comfortable. Continue with bronchodilators Q4prn (MDI is in patient room below the oxygen flow meter). Wean oxygen as tolerated, encourage PEP 10 times an hour to help with lung recruitment and secretion clearance.
--- NOTE | 2020-07-06 16:26 | P.PN_ITS ---
Subjective Subjective Date Patient Seen: 07/06/20 Interval history: Patient is a 64-year-old female admitted to the hospital with COVID-19 pneumonia. She continues to have hypoxemia with exertion. However her level of desaturation is improved. The patient had chest PT, and pronating ear lier this morning. Her room air oxygen saturation is 94-95%. With minimal activity she desaturated to 90% but recover quite quickly. She continues to have dry cough. She has intermittent headache. She has no longer any diarrhea. Exam Vital Signs (past 8 hours): - 07/06/20 09:36 07/06/20 12:20 07/06/20 13:35 Temperature 96.8 F L 98.5 F Pulse Rate 58 L 58 L 64 Respiratory Rate 16 16 18 Blood Pressure 132/68 143/115 H Pulse Oximetry 90 L 96 96 Oxygen Delivery Method Nasal Cannula Oxygen Flow Rate 1 Narrative Exam Narrative: Pleasant female in no acute distress Lungs: Decreased breath sounds with occasional scattered crackles Cardiac exam: Regular rate and rhythm normal S1-S2 Abdomen soft nontender nondistended Extremities: No edema Objective Labs Result Diagrams: 07/04/20 09:12 07/04/20 09:12 Assessment & Plan Assessment & Plan narrative: Impression 1. COVID-19 pneumonia, with associated acute hypoxic respiratory failure -patient continues to have hypoxia although it is improving -rest oxygenation 90% early this morning, she continues to desaturate with activity although her oxygen saturation has been improving -continue remdesivir for 5 days -continue Decadron until discharge -discharge home when off oxygen, and O2 saturation at least 91-92% with activity 2. Type 2 diabetes -continue basal bolus since -blood sugars slightly elevate related to Decadron which should improve at discharge 3. Hypertension -continue metoprolol 4. Disposition -anticipate discharge home in 1-2 days
[2020-07-06] MEDS: INSULIN GLARGINE 100 UNIT/ML 3ML PEN 30 UNIT SUBCUT (21:24)
[2020-07-07] VITALS (7 sets, daily range): BP systolic 99–155; BP diastolic 58–95; PULSE 57–72; RESP 14–18; TEMP 35.4–37; O2SAT 90–96
--- NOTE | 2020-07-07 01:12 | PC.NURSE ---
Addendum entered by Natalia Coughlin R.N. 07/07/20 06:20: 0600 Patient safety and vital check. Pt sitting up in bed, high marshall, with head in hands. Pt tearful, withdrawn. O2 saturation at 96% on 1LPM. I asked her how her appetite has been and she said I don't have one. BP 99/58. She has not been drinking much water. Encouraged lots of oral fluids, reminded her to keep her mind on her goal of going home and that every day is looking better. Original Note: 0000 At beginning of patient assessment, her oxygen saturation was 92% on 1LPM NC. Approximately 5 minutes later, her oxygen saturation decreased to 90%. O2 titrated until O2 reached 92% LPM at 2.5. I suggested she lay prone for a while, to which she agreed but wanted to use the restroom first. The patient got up to use the restroom (without oxygen via NC), and upon returning to the bed, her oxygen saturation dropped to 80%. With the O2 NC back in place, she positioned herself to prone. Once her oxygen saturation increased back up, I slowly titrated the LPM again--this time back down to 1LPM. At 0015, in prone position, the patient saturates at 93% on 1LPM via NC. No s/sx of distress.
[2020-07-07 08:29] LABS: Add Manual Diff / Slide Review NO; Basophils Absolute Auto 0 /uL (0-100); Basophils Percent Auto 0.4 % (0-2); Eosinophils Absolute Auto 0 /uL (0-450); Hematocrit 44.5 % (36-46); Hemoglobin 15.5 g/dL (12.0-16.0); Lymphocytes Absolute Auto 1600 /uL (1100-4500); Lymphocytes Percent Auto 29.4 % (25-40); Mean Corpuscular HGB Conc 34.9 % (30-36); Mean Corpuscular Hemoglobin 28.9 PG (26-34); Monocytes Absolute Auto 700 /uL (0-900); Monocytes Percent Auto 12.5 % (3-14); Neutrophils Absolute Auto 3200 /uL (1500-7000); Neutrophils Percent Auto 57.7 % (50-75); Platelet Count 302 X10^3/uL (150-400); Red Blood Cell Count 5.36 X10^6/uL (4.0-5.2); White Blood Cell Count 5.5 X10^3/uL (4.5-11.0)
[2020-07-07 08:34] LABS: D Dimer 227 ng/mL (<230)
[2020-07-07 08:39] LABS: Alanine Aminotransferase 33 IU/L (<35); Albumin 4.1 g/dL (3.5-5.0); Albumin Globulin Ratio 1.1 (1.0-2.8); Alkaline Phosphatase 73 U/L (38-126); Aspartate Aminotransferase 77 IU/L (14-36); BUN Creatinine Ratio 24.5 (6-22); Bilirubin Total 0.6 mg/dL (0.2-1.3); Blood Urea Nitrogen 13 mg/dL (7-17); Carbon Dioxide 34 mmol/L (22-32); Chloride 96 mmol/L (98-107); Estimated Glomerular Filt Rate > 60.0 mL/min (>60); Globulin 3.6 g/dL (1.7-4.1); Glucose 194 mg/dL (80-110); HEMOLYSIS < 15 (0-50); Lactate Dehydrogenase 748 U/L (313-618); Potassium 3.8 mmol/L (3.4-5.1); Sodium 139 mmol/L (137-145); Total Protein 7.7 g/dL (6.3-8.2)
[2020-07-07] MEDS: METOPROLOL ER 25 MG TABLET PO (08:59)
[2020-07-07] MEDS: ASPIRIN EC 81 MG TABLET PO (08:59)
[2020-07-07] MEDS: dexAMETHasone 4 MG TABLET 6 MG PO (09:00)
[2020-07-07] MEDS: INSULIN ASPART 100 UNIT/ML INSULN PEN SUBCUT ×4 (09:02→22:03)
[2020-07-07] MEDS: REMDESIVIR 100 MG in SODIUM CHLORIDE 0.9% 230 ML 250 ML IV (09:02)
[2020-07-07] MEDS: SODIUM CHLORIDE 0.9% FLUSH 10 ML IV ×2 (09:03→22:02)
[2020-07-07] MEDS: HEPARIN 5,000 UNIT/ML VIAL 5000 UNIT SUBCUT ×2 (09:03→22:02)
--- NOTE | 2020-07-07 11:14 | PC.NURSE ---
Day shift: Pt asleep at this time (1110) in supine position. HR 58 to 59. 94% 1 L NC asleep. Call light in reach.
[2020-07-07] MEDS: ALBUTEROL HFA 200 PUFF/18 GM INH (COVID POS/VENT PTS) INH (11:29)
--- NOTE | 2020-07-07 12:13 | RT ---
Continue to encourage proning with patient, CPT, PEP and bronchodilators given. Patient still requiring 1L oxygen to maintain saturations of greater than 92%.
--- NOTE | 2020-07-07 18:21 | PM.PN.1 ---
Subjective Subjective Date Patient Seen: 07/07/20 Time Patient Seen: 18:21 Interval history: This is a 64-year-old female with a past medical history of diabetes and hypertension who remained is admitted for a COVID-19 pneumonia and acute respiratory failure. She completed her course of remdesivir today but will continue on steroids for a maximum of 10 days or until she is able to be discharged home once she is able to ambulate without supplemental oxygen. She continues to desaturate into mid to upper 80s after ambulation to the bathroom. She also had some difficulty this morning getting off of oxygen, but by the time I evaluated her in the evening she was talking to me in full sentences and saturating at 94%. Her laboratory values including LDH and D-dimer level are not significantly changed. She has had no fevers. She is starting to regain some strength and feels better, but is predominantly short of breath. Her GI symptoms have largely resolved. Exam Vital Signs (past 8 hours): - 07/07/20 11:48 07/07/20 12:00 07/07/20 16:55 Temperature 97.6 F 95.7 F L Pulse Rate 66 72 68 Respiratory Rate 18 16 14 Blood Pressure 116/65 155/95 H Pulse Oximetry 92 95 96 Oxygen Delivery Method Nasal Cannula Oxygen Flow Rate 0 Narrative Exam Narrative: GeN: Pleasant female in no acute distress Lungs: Decreased breath sounds with occasional scattered crackles Cardiac exam: Regular rate and rhythm normal S1-S2 Abdomen soft nontender nondistended Extremities: No edema or effusions Objective Labs Result Diagrams: 07/07/20 07:20 07/07/20 07:20 Labs: Laboratory Results - last 24 hr 07/07/20 07/07/20 07/07/20 07:20 07:20 07:20 WBC 5.5 RBC 5.36 H Hgb 15.5 Hct 44.5 MCV 83.0 MCH 28.9 MCHC 34.9 RDW 13.0 Plt Count 302 Neut % (Auto) 57.7 Lymph % (Auto) 29.4 [place] % (Auto) 12.5 Eos % (Auto) 0.0 L Baso % (Auto) 0.4 Neut # (Auto) 3200 Lymph # (Auto) 1600 [place] # (Auto) 700 Eos # (Auto) 0 Baso # (Auto) 0 D-Dimer 227 Sodium 139 Potassium 3.8 Chloride 96 L Carbon Dioxide 34 H BUN 13 Creatinine 0.53 Estimated GFR > 60.0 BUN/Creatinine Ratio 24.5 H Glucose 194 H Calcium 9.0 Total Bilirubin 0.6 AST 77 H ALT 33 Alkaline Phosphatase 73 Lactate Dehydrogenase 748 H Total Protein 7.7 Albumin 4.1 Globulin 3.6 Albumin/Globulin Ratio 1.1 Assessment & Plan Assessment & Plan narrative: 1. COVID-19 pneumonia, with associated acute hypoxic respiratory failure -patient continues to have hypoxia predominantly with exertion, although it is improving -now completed remdesivir for 5 days -continue Decadron until discharge or a total of 10 days, whichever is sooner -discharge home when off oxygen, and O2 saturation at least 91-92% with activity 2. Type 2 diabetes -continue basal bolus insulin, have increased to medium dose today given slightly elevated blood sugars related to Decadron therapy -blood sugars slightly elevate related to Decadron which should improve at discharge 3. Hypertension -continue metoprolol 4. Disposition -anticipate discharge home in 1-2 days Code: Full COVID-19 COVID-19 status: Positive
[2020-07-07] MEDS: INSULIN GLARGINE 100 UNIT/ML 3ML PEN 30 UNIT SUBCUT (22:02)
--- NOTE | 2020-07-07 23:53 | PC.NURSE ---
Evening shift: Report received, care assumed. Covid precautions followed. VSS. Denies pain. Moving independently within room. Requiring 1LNC; desats on room air. Pulmonary toilet and ambulation encouraged.
[2020-07-08] VITALS (10 sets, daily range): BP systolic 111–175; BP diastolic 62–89; PULSE 58–70; RESP 14–18; TEMP 35.9–36.6; O2SAT 90–96
[2020-07-08 05:26] LABS: Hematocrit 42.2 % (36-46); Hemoglobin 14.7 g/dL (12.0-16.0); Mean Corpuscular HGB Conc 34.8 % (30-36); Mean Corpuscular Volume 83.2 fL (80-100); Platelet Count 272 X10^3/uL (150-400); Red Blood Cell Count 5.07 X10^6/uL (4.0-5.2); Red Cell Distribution Width 12.9 % (11.6-14.8); White Blood Cell Count 6.4 X10^3/uL (4.5-11.0)
[2020-07-08 05:29] LABS: Lactate Dehydrogenase 611 U/L (313-618)
[2020-07-08 05:33] LABS: Alanine Aminotransferase 25 IU/L (<35); Albumin 3.3 g/dL (3.5-5.0); Albumin Globulin Ratio 1.1 (1.0-2.8); Alkaline Phosphatase 57 U/L (38-126); Aspartate Aminotransferase 53 IU/L (14-36); BUN Creatinine Ratio 30.8 (6-22); Bilirubin Total 0.5 mg/dL (0.2-1.3); Blood Urea Nitrogen 16 mg/dL (7-17); Calcium 8.6 mg/dL (8.4-10.2); Carbon Dioxide 36 mmol/L (22-32); Chloride 99 mmol/L (98-107); Estimated Glomerular Filt Rate > 60.0 mL/min (>60); Globulin 3.1 g/dL (1.7-4.1); Glucose 203 mg/dL (80-110); HEMOLYSIS < 15 (0-50); Potassium 3.6 mmol/L (3.4-5.1); Sodium 137 mmol/L (137-145); Total Protein 6.4 g/dL (6.3-8.2)
[2020-07-08 05:35] LABS: Add Manual Diff / Slide Review YES
[2020-07-08] MEDS: DOCUSATE 100 MG CAPSULE PO (05:40)
[2020-07-08] MEDS: polyethylene glycoL 3350 17 GM POWD.PACK PO (05:40)
[2020-07-08 06:58] LABS: Neutrophils Absolute Manual 4416 /uL (3000-5900); Total Cells Counted 100
[2020-07-08 06:59] LABS: RBC Morphology Normal Morphology
[2020-07-08] MEDS: METOPROLOL ER 25 MG TABLET PO (08:17)
[2020-07-08] MEDS: dexAMETHasone 4 MG TABLET 6 MG PO (08:18)
[2020-07-08] MEDS: ASPIRIN EC 81 MG TABLET PO (08:18)
[2020-07-08] MEDS: INSULIN ASPART 100 UNIT/ML INSULN PEN SUBCUT ×4 (08:19→20:49)
[2020-07-08] MEDS: HEPARIN 5,000 UNIT/ML VIAL 5000 UNIT SUBCUT ×2 (08:19→20:46)
[2020-07-08] MEDS: SODIUM CHLORIDE 0.9% FLUSH 10 ML IV ×2 (08:19→23:56)
--- NOTE | 2020-07-08 13:19 | PC.NURSE ---
Assumed care @ 1300 Pt denies any issues @ this time. CBG = 236. S/S 3u novolog given. HL RFA intact. SpO2 92% 1l O2 Call light w/in reach, pt calls appropriately for needs.
[2020-07-08] MEDS: guaiFENesin ER 600 MG TAB 1200 MG PO ×2 (13:57→20:46)
--- NOTE | 2020-07-08 14:48 | P.PN_ITS ---
Subjective Subjective Date Patient Seen: 07/08/20 Time Patient Seen: 13:30 Interval history: This is a 64-year-old female with a past medical history of diabetes and hypertension who remains admitted for a COVID-19 pneumonia and acute respiratory failure. She completed her course of remdesivir yesterday but will continue on steroids. She continues to desaturate into mid to upper 80s after ambulation to the bathroom. Her laboratory values including LDH and D-di rajesh level are not significantly changed. She has had no fevers. She is starting to regain some strength and feels better, but is predominantly short of breath and continues to have a cough. She feels as if she has some sputum stuck in her lungs that she cannot get out. Have order her to try some Mucinex today. Her GI symptoms have resolved, however she has not had a bowel movement in the past few days. Had a long discussion today and if she is not off of oxygen tomorrow, she would like to be discharged home. 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 Have ordered respiratory therapy to evaluate for home O2 and will try and set this up to have her be able to be discharged tomorrow. Exam Vital Signs (past 8 hours): - 07/08/20 08:00 07/08/20 08:15 07/08/20 08:17 Temperature 97.8 F Pulse Rate 58 L Respiratory Rate 16 Blood Pressure 111/62 111/62 Pulse Oximetry 92 92 07/08/20 09:55 07/08/20 12:05 Temperature 97.8 F Pulse Rate 62 Respiratory Rate 16 Blood Pressure 141/76 H Pulse Oximetry 96 95 Oxygen Delivery Method Nasal Cannula Oxygen Flow Rate 1.5 Narrative Exam Narrative: GENERAL APPEARANCE: Fatigued, ill-appearing, mildly anxious elderly female but in no acute distress. Slightly flat affect. SKIN: Inspection of the skin reveals no rashes, ulcerations or petechiae. HEENT: Normocephalic atraumatic, extraocular muscles are intact, oropharynx is clear and mucous membranes are moist, neck is supple without adenopathy CHEST: Normal AP diameter and normal contour without any kyphoscoliosis. LUNGS: Auscultation of the lungs revealed diminished breath sounds at the bilateral lung bases but no obvious wheezing, rhonchi, or rales. Difficult to assess with a disposable stethoscope. CARDIOVASCULAR: There was a regular rate and rhythm without any murmurs, smith ps, rubs. Peripheral pulses were 2+ and symmetric. ABDOMEN: Soft, nondistended, and nontender. MUSCULOSKELETAL: There was no tenderness or effusions noted. Muscle strength and tone were normal. EXTREMITIES: No cyanosis, clubbing or edema. NEUROLOGIC: Alert and oriented x 3. Normal affect. Strength is +5/5 in the Upper Extremities and Lower Extremities Bilaterally. Sensation to touch was normal. Objective Labs Result Diagrams: 07/08/20 05:00 07/08/20 05:00 Labs: Laboratory Results - last 24 hr 07/08/20 07/08/20 07/08/20 05:00 05:00 05:00 WBC 6.4 RBC 5.07 Hgb 14.7 Hct 42.2 MCV 83.2 MCH 29.0 MCHC 34.8 RDW 12.9 Plt Count 272 Neut % (Auto) Not Reportable Lymph % (Auto) Not Reportable [place] % (Auto) Not Reportable Eos % (Auto) Not Reportable Baso % (Auto) Not Reportable Lymph # (Auto) Not Reportable [place] # (Auto) Not Reportable Baso # (Auto) Not Reportable Total Counted 100 Seg Neutrophils % 68.0 Band Neutrophils % 1.0 L Lymphocytes % (Manual) 23.0 L Atypical Lymphs % 4.0 H Monocytes % (Manual) 4.0 Neutrophils # (Manual) 4416 RBC Morphology Normal morphology Sodium 137 Potassium 3.6 Chloride 99 Carbon Dioxide 36 H BUN 16 Creatinine 0.52 Estimated GFR > 60.0 BUN/Creatinine Ratio 30.8 H Glucose 203 H Calcium 8.6 Total Bilirubin 0.5 AST 53 H ALT 25 Alkaline Phosphatase 57 Lactate Dehydrogenase 611 Total Protein 6.4 Albumin 3.3 L Globulin 3.1 Albumin/Globulin Ratio 1.1 Assessment & Plan Assessment & Plan narrative: This is a 64-year-old female with a past medical history of diabetes and hypertension who remains admitted for a COVID-19 pneumonia and acute respiratory failure. She completed her course of remdesivir yesterday but will continue on steroids. 1. COVID-19 pneumonia, with associated acute hypoxic respiratory failure -patient continues to have hypoxia predominantly with exertion, although it is improving I suspect she may need continued O2 with exertion for an extended perior. -now completed remdesivir for 5 days -continue Decadron until for a total of 10 days, unless off of O2. -discharge home likely tomorrow with home O2 for activity. RT evaluation for home O2 ordered. If patient able to ambulate tomorrow without O2 she could discharge without supplemental oxygen. 2. Type 2 diabetes -continue basal bolus insulin, have increased to medium dose today given slightly elevated blood sugars related to Decadron therapy -blood sugars slightly elevate related to Decadron which should improve at discharge 3. Hypertension -continue metoprolol 4. Disposition -anticipate discharge home tomorrow possibly on home O2 after discussion with patient today. Code: Full
--- NOTE | 2020-07-08 17:20 | PC.NURSE ---
Addendum entered by Kiesha Sweeney R.N. 07/08/20 21:11: HS CBG = 303 Lantus & S/S given as per orders Denies any discomfort,. HL intact. Stable progress Up independently in room SpO2 92-93% on 1L Call light w/in reach, pt calls appropriately for needs. Continue w/plan of care. Addendum entered by Kiesha Sweeney R.N. 07/08/20 21:07: HS CBG = Original Note: [id number]: Pt had relatively uneventful evening. CBG @ AC = 311; 7u S/S coverage given. SpO2 93% 1L O2 HL intact. Call light w/in reach, pt calls appropriately for needs.
[2020-07-08] MEDS: INSULIN GLARGINE 100 UNIT/ML 3ML PEN 30 UNIT SUBCUT (20:48)
[2020-07-09 00:49] VITALS: BP 152/82; PULSE 56; RESP 22; TEMP 36.4; O2SAT 92
[2020-07-09 03:38] VITALS: BP 140/76; PULSE 62; RESP 18; TEMP 36.2; O2SAT 92
[2020-07-09] MEDS: INSULIN ASPART 100 UNIT/ML INSULN PEN SUBCUT ×3 (04:23→12:23)
[2020-07-09] MEDS: INSULIN ASPART 100 UNIT/ML 10ML VIAL 8 UNIT SUBCUT (04:41)
--- NOTE | 2020-07-09 05:10 | PC.NURSE ---
Pt. pulled out her IV access & adamantly refused to restart another IV line. States I don't want to get poke again. Did not sleep well, denies any YI, CP & other discomfort.
--- NOTE | 2020-07-09 05:13 | PC.NURSE ---
1 Liter sat. 92%. Did not C/O dyspnea & no coughing noted this morning. CBG, was 338 @ 3248 SHARA Alvarado notified 8 units of extra Insulin Aspart self administered by pt. @ 0423, will monitor.
--- NOTE | 2020-07-09 07:41 | P.DS_ITS ---
History of Present Illness History of Present Illness Date Patient Seen: 07/09/20 Time Patient Seen: 11:30 Chief complaint: possible Covid, cough Narrative: As per SHARA [place]: Ms. Driss Tom is a 64-year-old female patient with history significant for diabetes, hyperlipidemia and history of ventricular tachycardia who presents to the ER with shortness of breath and cough with nausea vomiting and diarrhea. The patient stents that she travel to [place] 1 week ago and had a cough prior to departing. The patient subsequently developed 1 week of sore throat continued coughing and 3 days ago developed nausea vomiting and diarrhea. Patient no complaints of headache body aches. The patient's son has tested positive for COVID-19 and the Patient's has similar symptoms. The patient reports no complaints of fevers or chills and had no chest pain or palpitations. He has had cough for 1 week which is nonproductive described as dry and raspy. The patient has had nausea vomiting and diarrhea as noted above. She denies hematemesis, hematochezia or melena. The patient is normally independent in all functions of daily living uses no assistive devices. Upon arrival to the ER the patient's temperature 99.4?, heart rate of 68, blood pressure 155/74, respiratory rate 20 saturating 91% on room air. A chest x-ray obtained finding subtle patchy opacitieswithin the peripheral mid right lung with the remainder of the lung appearing clear. On laboratory analysis the patient has white count of 6.1, hemoglobin 14.6, hematocrit 42.8 and platelets of 183. PT is 12 with an INR of 1.0 and a PTT of 32 with an elevated D-dimer 244. Blood gas obtained finding pH of 7.36, pCO2 of 35.4, PO2 67, bicarbonate 20 and a base excess of -6. On chemistry sodium is low 131 and BUN is high at 21 with a creatinine 0.60. BUN creatinine ratio is 365 and nonfasting glucose is 168. Patient's total bilirubin is 0.6 with an elevated AST 130 ALT at 68. Alkaline phosphatase 67, LDH is elevated at 7.6. Total CK is 130 with an MB of 0.82 an index is 0.6. Troponin is less than 0.012. C-reactive protein is elevated at 5.2. Lipase is mildly elevated at 457. Procalcitonin is negative at less than 0.05 urinalysis is positive for ketones and nitrites and trace leukocyte esterase with many bacteria and reflex to culture. COVID-19 screening is positive. The patient is admitted to the hospital with dyspnea and hypoxemia and severe dehydration in the setting of COVID-19 infection. Discharge Providers Provider Date of admission: 07/02/20 23:50 Discharge Date: 07/09/20 Primary care physician: Xiomara Diego DO Consults: 07/03/20 00:09 Consult to Discharge Planning Routine Comment: Consult to Respiratory Therapy Evaluate & Treat Comment: Dyspnea, COVID positive Physician Instructions: Evaluate and treat Discharge provider: Luigi Duran DO Summary Hospital Course Discharge Diagnosis: 1. COVID-19 pneumonia, with associated acute hypoxic respiratory failure 2. Type 2 diabetes, chronic 3. Hypertension, chronic 4. Acute cystitis, present on admission, resolved. 5. Dehydration, acute, present on admission. Hospital Course: This is a 64-year-old female with a past medical history of diabetes and hypertension who was admitted for a COVID-19 pneumonia and acute respiratory failure. She completed her course of remdesivir while admitted. 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 She was recommended to complete a total 10 day course of Decadron, and further prescribed Mucinex. She was a set up as well for home oxygen, which she continued to need but only with exertion. Her blood sugars were elevated due to her Decadron therapy, but she can resume her home medications upon discharge. She was instructed to stop her Decadron therapy if in the next few days she no longer requires supplemental oxygen at home with activity. She was also briefly treated for acute cystitis with ceftriaxone. Time Spent with Patient Time spent: Greater than 30 minutes Exam Vital Signs (past 8 hours): - 07/09/20 00:49 07/09/20 03:38 Temperature 97.6 F 97.2 F L Pulse Rate 56 L 62 Respiratory Rate 22 18 Blood Pressure 152/82 H 140/76 Pulse Oximetry 92 92 Oxygen Delivery Method Nasal Cannula Oxygen Flow Rate 1 Narrative Exam Narrative: GENERAL APPEARANCE: Fatigued, mildly ill-appearing, mildly anxious elderly female but in no acute distress. Slightly flat affect. SKIN: Inspection of the skin reveals no rashes, ulcerations or petechiae. HEENT: Normocephalic atraumatic, extraocular muscles are intact, oropharynx is clear and mucous membranes are moist, neck is supple without adenopathy CHEST: Normal AP diameter and normal contour without any kyphoscoliosis. LUNGS: Auscultation of the lungs revealed diminished breath sounds at the bilateral lung bases but no obvious wheezing, rhonchi, or rales. Difficult to assess with a disposable stethoscope. CARDIOVASCULAR: There was a regular rate and rhythm without any murmurs, gallops, rubs. Peripheral pulses were 2+ and symmetric. ABDOMEN: Soft, nondistended, and nontender. MUSCULOSKELETAL: There was no tenderness or effusions noted. Muscle strength and tone were normal. EXTREMITIES: No cyanosis, clubbing or edema. NEUROLOGIC: Alert and oriented x 3. Normal affect. Strength is +5/5 in the Upper Extremities and Lower Extremities Bilaterally. Sensation to touch was normal. Objective Labs Result Diagrams: 07/08/20 05:00 07/08/20 05:00 Discharge Plan Discharge Plan Patient Disposition: Home Provider Discharge Comment: You were admitted to the hospital with COVID-19. You are slowly improving but still require oxygen with activity. Please continue decadron at home for an additional 3 days if you still drop your oxygen levels, however if this improves before 3 days you can stop the steroids. Please increase your lantus to 34 units tonight at home and continue this until steroid therapy is complete, then return to your usual dosing. You should remain isolated at home until you are at least asymptomatic for 7 days. Discharge orders & Medications Prescriptions: New dexamethasone 4 mg Tablet 6 mg PO DAILY 3 Days Qty: 3 RF: 0 guaifenesin [Mucus Relief ER] 600 mg Tablet Extended Release 12hr 1,200 mg PO BID 14 Days Qty: 56 RF: 0 Continued benzonatate [Tessalon Perles] 100 mg capsule 100 mg PO BID-TID PRN (Reason: cough) Qty: 30 RF: 0 metoprolol succinate [Toprol XL] 25 mg tablet extended release 24 hr 25 mg PO DAILY Qty: 90 RF: 3 metformin 850 mg tablet 850 mg PO TID Qty: 270 RF: 3 pen needle, diabetic [BD Althea 2nd Gen Pen Needle] 32 gauge x 5/32 needle See Rx Instructions .ROUTE .COMPLEX Qty: 600 RF: 3 Basaglar KwikPen U-100 Insulin 100 unit/mL (3 mL) insulin pen 30 unit SUBCUT DAILY Qty: 30 RF: 3 aspirin 81 mg tablet,delayed release (DR/EC) 81 mg PO DAILY RF: 0 Follow up/Referrals: Xiomara Diego DO [Primary Care Provider] - (Please follow up with with your pcp after discharge. Call Dr. Diego's office to schedule your appointment.) Discharge Health Status Health Concerns: COVID Diet/Activity/Treatments Diet: Diet as Tolerated and Carb-consistent/Diabetic Activity: As tolerated Oxygen: as needed with activity to keep O2 >90%. Visit Report/Discharge Packet Instructions: DI for Oxygen Therapy -- Adult, DI for COVID-19 (Suspected or Confirmed ), Remdesivir Injection Visit Report Forms: Patient Portal/API, Stroke Signs & Symptoms Discharge Data Primary Care Provider: Xiomara Diego Discharges patient from system. Discharge Date/Time: 07/09/20 14:06
[2020-07-09 08:10] VITALS: BP 117/65
[2020-07-09] MEDS: dexAMETHasone 4 MG TABLET 6 MG PO (08:10)
[2020-07-09] MEDS: ASPIRIN EC 81 MG TABLET PO (08:10)
[2020-07-09] MEDS: HEPARIN 5,000 UNIT/ML VIAL 5000 UNIT SUBCUT (08:10)
[2020-07-09] MEDS: METOPROLOL ER 25 MG TABLET PO (08:10)
[2020-07-09] MEDS: guaiFENesin ER 600 MG TAB 1200 MG PO (08:11)
[2020-07-09] MEDS: SODIUM CHLORIDE 0.9% FLUSH 10 ML IV (08:13)
[2020-07-09 08:45] VITALS: BP 117/65; PULSE 60; RESP 16; TEMP 35.8; O2SAT 92
[2020-07-09] MEDS: DOCUSATE 100 MG CAPSULE PO (11:36)
[2020-07-09] MEDS: BISACODYL 5 MG TABLET 10 MG PO (11:36)
[2020-07-09] MEDS: polyethylene glycoL 3350 17 GM POWD.PACK PO (11:36)
[2020-07-09 12:10] VITALS: BP 152/65; PULSE 60; RESP 16; TEMP 36.1; O2SAT 94
--- NOTE | 2020-07-09 14:04 | PC.NURSE ---
Pt is dressed and ready for discharge home with Spouse (he will wait in his vehicle for her to be brought down). IV has been removed. Went over d/c instructions with Pt-discussed d/c meds, time of last dose, reviewed stroke education, O2 use, activity, and follow up. Pt denies further questions and was taken out via w/c by [employer] to pov with all belongings.
== END 2020-07-09 14:06 | disposition home or self-care (01) | DRG 177 ==
LOC: ED 21:34 → AC 23:51
PROVIDERS: Internal Medicine; Admitting Provider Nurse Practitioner Adult Health; Emergency Provider Emergency Medicine; PCP Family Medicine; Referring Provider Emergency Medicine; Visit Provider Nurse Practitioner Adult Health
DX: U07.1 COVID-19 (principal); J12.89 Other viral pneumonia; J96.01 Acute respiratory failure with hypoxia; I47.2 Ventricular tachycardia; N30.00 Acute cystitis without hematuria; E86.0 Dehydration; I10 Essential (primary) hypertension; E11.9 Type 2 diabetes mellitus without complications; Z79.4 Long term (current) use of insulin
CPT/HCPCS: 36415; 36600; 71045; 80048; 80053; 81001; 82550; 82553; 82805; 82962; 83036; 83605; 83615; 83690; 83735; 84145; 84484; 85025; 85379; 85610; 85730; 86140; 87040; 87077; 87086; 87186; 87502; 87635; 93005; 94618; 94640; 94762; 96361; 96374; 96375; 99285; A9270; C9113; J1100; J1644; J1885; J2405; J3475

== ENCOUNTER → 2020-08-13 08:10 | Outpatient (CLI) | payer OTHER, SELFPAY ==
[2020-07-03 01:34] VITALS: BMI 28.2
[2020-08-13 09:23] LABS: Hemoglobin A1C% w Est Avg Glu 8.9 % (4.0-6.0)
[2020-08-13 09:36] LABS: Alanine Aminotransferase 100 IU/L (<35); Albumin 4.3 g/dL (3.5-5.0); Albumin Globulin Ratio 1.3 (1.0-2.8); Alkaline Phosphatase 59 U/L (38-126); Aspartate Aminotransferase 130 IU/L (14-36); Bilirubin Total 0.7 mg/dL (0.2-1.3); Blood Urea Nitrogen 12 mg/dL (7-17); Calcium 9.4 mg/dL (8.4-10.2); Carbon Dioxide 30 mmol/L (22-32); Chloride 102 mmol/L (98-107); Estimated Glomerular Filt Rate > 60.0 mL/min (>60); Globulin 3.2 g/dL (1.7-4.1); Glucose 192 mg/dL (80-110); HEMOLYSIS < 15 (0-50); Potassium 3.8 mmol/L (3.4-5.1); Sodium 138 mmol/L (137-145); Total Protein 7.5 g/dL (6.3-8.2)
[2020-08-14 09:03] LABS: SARS-CoV19- IgM Positive (Negative)
[2020-08-15 13:22] LABS: SARS CoV19 IgA Negative (Negative)
[2020-09-04 14:52] LABS: SARS CoV19 IgG POSITIVE
== END ==
PROVIDERS: PCP Family Medicine; Referring Provider Family Medicine; Visit Provider Family Medicine
DX: U07.1 COVID-19 (principal); E11.9 Type 2 diabetes mellitus without complications; Z79.4 Long term (current) use of insulin
CPT/HCPCS: 36415; 80053; 83036; 86769

== ENCOUNTER → 2020-09-26 16:10 | Outpatient (CLI) | payer OTHER, SELFPAY ==
[2020-07-03 01:34] VITALS: BMI 28.2
--- NOTE | 2020-09-26 16:12 | DI.MG.S_ITS ---
BILATERAL DIGITAL SCREENING MAMMOGRAM 3D/2D WITH CAD: 09/26/2020 CLINICAL: Routine screening. Family history of breast cancer. Comparison is made to exams dated: 06/06/2013 mammogram, 01/06/2008 mammogram, and 10/06/2004 mammogram - [facility]. The tissue of both breasts is predominantly fatty. Current study was also evaluated with a Computer Aided Detection (CAD) system. There is a stable benign focal asymmetry in the left breast. No significant masses, calcifications, or other findings are seen in either breast. There has been no significant interval change. IMPRESSION: BENIGN There is no mammographic evidence of malignancy. A 1 year screening mammogram is recommended. This exam was interpreted at Station ID: [id number]. NOTE: For mammograms, a report in lay terms will be sent to the patient. Approximately 15% of breast malignancies will not be visualized mammographically. In the management of a palpable breast mass, a negative mammogram must not discourage biopsy of a clinically suspicious lesion. Electronically Signed By: Vini Lau acr/sunni:09/26/2020 17:04:28 letter sent: Normal Exam ACR BI-RADS Category 2: Benign Finding(s) 3342F
== END ==
PROVIDERS: PCP Family Medicine; Referring Provider Family Medicine; Visit Provider Family Medicine
DX: Z12.31 Encounter for screening mammogram for malignant neoplasm of breast (principal); Z80.3 Family history of malignant neoplasm of breast
CPT/HCPCS: 77063; 77067

== ENCOUNTER 2020-12-16 03:22 | Inpatient (IN) | payer MEDICARE, OTHER, SELFPAY ==
[2020-07-03 01:34] VITALS: BMI 28.2
[2020-12-16] VITALS (20 sets, daily range): BP systolic 143–193; BP diastolic 74–95; PULSE 84–100; RESP 13–20; TEMP 36.2–37.1; O2SAT 92–98; BMI 25.4
--- NOTE | 2020-12-16 | DI.ECHO.S_ITS ---
[facility]---------+ [facility] +---------+ : : [address] : [place] : : : : [id number] : : : : Phone: [phone] Echocardiogram Report + + :Name: ABRAN JANE Study Date: 12/16/2020 Height: 60 in : :[facility] ReadingLocation: Weight: 130 lb : : Gender: Female BSA: 1.6 m2 : :: 1955 Age: 65 yrs BP: 163/93 mmHg: :Reason For Study: STROKE : :Ordering Physician: MONICA, : :AUSTIN Performed By: Miryam Magaña : :Referring: AUSTIN ANDERSON : + + Interpretation Summary The left ventricle is normal in size and wall thickness. Left ventricular systolic function appears normal without focal wall motion abnormalities. The ejection fraction is estimated to be 65-70%. Diastolic parameters suggest a relaxation abnormality of the left ventricle, consistent with probable normal filling pressures. The right ventricle is normal in size and function. Pulmonary artery pressures cannot be estimated because of the lack of a measurable TR jet velocity but the IVC suggests a CVP of around 3 mmHg. Both atria are normal in size. Injection of contrast documented no interatrial shunt. There is no Doppler evidence for an interatrial shunt. There is no significant valvular heart disease. The aortic root is normal size. Procedure: A two-dimensional transthoracic echocardiogram with color flow and Doppler was performed. The study quality was technically adequate. Comparison is made with the echocardiogram of 06/11/2012. The patient was in sinus rhythm with heart rates between 89-96 bpm during the exam. Left Ventricle: The left ventricle is normal in size and wall thickness. Left ventricular systolic function appears normal without focal wall motion abnormalities. The ejection fraction is estimated to be 65-70%. Diastolic parameters suggest a relaxation abnormality of the left ventricle, consistent with probable normal filling pressures. Right Ventricle: The right ventricle is normal in size and function. Atria: Both atria are normal in size. There is no Doppler evidence for an interatrial shunt. Injection of contrast documented no interatrial shunt. Mitral Valve: The mitral valve is normal in structure and function. There is trace mitral regurgitation. Aortic Valve: The aortic valve is trileaflet. The aortic valve is slightly calcified. The aortic valve opens well. There is no aortic valve stenosis. No aortic regurgitation is present. Tricuspid Valve: The tricuspid valve is normal in structure and function. Pulmonary artery pressures cannot be estimated because of the lack of a measurable TR jet velocity but the IVC suggests a CVP of around 3 mmHg. There is trace tricuspid regurgitation. Pulmonic Valve: The pulmonic valve is not well seen, but is grossly normal. There is no pulmonic valvular regurgitation. There is no significant valvular heart disease. Great Vessels: The aortic root is normal size. The ascending aorta could not be visualized. The IVC is of normal diameter and collapses greater than 50% with a sniff. This suggests a low right atrial pressure of 3 mm Hg. Pericardium/ Pleura There is no pericardial effusion. There is no pleural effusion. MMode/2D Measurements & Calculations LVIDd: 3.8 cm LVOT diam: 1.9 cm LVIDs: 2.5 cm Ao root diam: 3.2 cm FS: 33.8 % EPSS: 0.75 cm IVSd: 1.00 cm LVPWd: 0.85 cm LV crowell. diameter/BSA (cm/m^2): 2.5 LV sys. diameter/BSA (cm/m^2): 1.6 LA A2 area: 16.7 cm2 RA long axis: 4.3 cm LA A4 area: 14.4 cm2 RA area: 12.1 cm2 LA length (vol): 4.5 cm RA vol: 28.9 ml LA vol: 45.0 ml RA : 18.6 ml/m2 LA vol index: 29.0 ml/m2 IVC diam: 1.2 cm RVD1 (basal): 2.9 cm TAPSE: 2.2 cm Doppler Measurements & Calculations Ao V2 max: 154.0 cm/sec LVOT Max Cr: 96.7 cm/sec Ao V2 mean: 103.8 cm/sec LV V1 max P.7 mmHg Ao max P.5 mmHg LV V1 VTI: 22.1 cm Ao mean P.9 mmHg RIZWAN(I,D): 2.2 cm2 Ao V2 VTI: 28.8 cm RIZWAN(V,D): 1.8 cm2 sev ratio: 0.76 RIZWAN indexed to BSA (cm^2/m^2): 1.4 MV E max cr: 77.6 cm/sec PA V2 max: 98.8 cm/sec MV A max cr: 123.3 cm/sec PA V2 mean: 58.4 cm/sec MV E/A: 0.63 PA mean P.7 mmHg Med Peak E' Cr: 4.9 cm/sec PA pr(Accel): 39.6 mmHg E/E' med: 15.7 Lat Peak E' Cr: 8.4 cm/sec E/E' lat: 9.3 E/e' average: 12.5 MV dec time: 0.15 sec SV(LVOT): 63.0 ml Reading Physician:08:42 AM
--- NOTE | 2020-12-16 03:29 | DI.CT.S_ITS ---
PROCEDURE: CT STROKE INDICATIONS: LEFT SIDED STROKE TECHNIQUE: Noncontrast 4.5 mm thick angled axial sections acquired from the foramen magnum to the vertex, with coronal reformats. For radiation dose reduction, the following was used: automated exposure control, adjustment of mA and/or kV according to patient size. COMPARISON: [facility], MR, MR HEAD/BRAIN WO CON, 02/06/2018, 8:16. [facility], MR, MR ANGIO HEAD WO CON, 02/06/2018, 8:05. [facility], CT, CT ANGIO HEAD AND NECK, 12/16/2020, 3:26. FINDINGS: Image quality: Excellent. CSF spaces: Basal cisterns are patent. No extra-axial fluid collections. Ventricles are normal in size and shape. Brain: No midline shift. No intracranial masses or hemorrhage. Rg-white matter interface is normal. Skull and face: Calvarium and visualized facial bones are intact, without evidence of trauma. There is a radiolucency within the right superior paramedian frontal bone, which without benefit of comparison studies would be worrisome for representing a osteolytic process. However, on prior MR scanning from January of 2018 this same lesion was present, and is seen to be within the diplegic space of the calvarium in that area, and without definite interval enlargement over time. There is a slight contour anomaly at the superficial cortex of the calvarium in this area.. Sinuses: Visualized sinuses and mastoids are clear. IMPRESSION: 1. No intracranial hemorrhage, mass or ischemic injury is found. 2. Within the calvarium of the left frontal area there is radiolucency which with benefit of retrospect on prior MR scanning from January of 2018 was also present, benign in appearance, without progression over time, and producing a mild contour bulge at the overlying cortex. This is likely palpable and may be known to the patient. Fibrous dysplasia within the calvarium could produce this appearance. This study fulfills neurological imaging criteria for inclusion or exclusion of acute stroke therapies based on available published neurological imaging guidelines. This report was discussed with the emergency room provider 12/16/20, 3:51 a.m.. Dictated by: Christiano Ashford M.D. on 12/16/2020 at 9:05 Approved by: Christiano Ashford M.D. on 12/16/2020 at 9:13
--- NOTE | 2020-12-16 03:29 | DI.CT.S_ITS ---
PROCEDURE: CT ANGIO HEAD AND NECK INDICATIONS: left sided stroke, concern for LVO, possible code IR TECHNIQUE: Pre-contrast 4.5 mm thick sections acquired from the foramen magnum to the vertex. After the administration of intravenous contrast, 1 mm thick sections acquired from the aortic arch through the [place]. Post-contrast 4.5 mm thick sections then re-acquired from the foramen magnum to the vertex. 3-dimensional xuwjoas-hjdiiqxau-jrzudkluew (MIP) and/or volume rendering reformats were acquired of the central intracranial vasculature and neck separately. COMPARISON: None. FINDINGS: Image quality: Excellent. BRAIN: CSF spaces: Ventricles are normal in size and shape. Basal cisterns are patent. No extra-axial fluid collections. Brain: No midline shift. No intracranial bleeds or masses. Rg-white matter interface appears intact. Skull and face: Calvarium and facial bones appear intact, without trauma. As was seen on initial noncontrast CT scanning there is a calvarial marrow space lucency and outward bulge of the outer table of the right frontal calvarium, present in retrospect on prior MR scanning from January of 2018. . Orbits appear normal. Sinuses: Sinuses and mastoids are clear. HEAD CT ANGIOGRAPHY: Anterior circulation: Intracranial internal carotid arteries are normal in size and flow. The flow within the paired anterior cerebral arteries is normal and symmetric. The flow within the middle cerebral arteries is normal and symmetric. The anterior communicating artery is seen. No aneurysms are seen. Posterior circulation: Visualized portions of the vertebral arteries demonstrate normal caliber, and join to form a normal appearing basilar artery. Flow within the posterior cerebral arteries is normal and symmetric. No aneurysms are seen. NECK CT ANGIOGRAPHY: Carotid system: The great vessels demonstrate a conventional anatomy as they arise from the aortic arch. The origins of the common carotid arteries appear patent. The common carotid arteries demonstrate normal caliber and courses. The bifurcation regions are both widely patent. The internal carotid arteries demonstrate normal calibers and courses. Posterior circulation: The origins of the vertebral arteries both appear widely patent. The more superior extracranial portions of both vertebral arteries also demonstrate normal courses and calibers. They join to form a normal appearing basilar artery. Soft tissues: Visualized neck soft tissues demonstrate no suspicious abnormalities. Bones: No suspicious bony lesions. Visualized cervical spine appears normally aligned. IMPRESSION: 1. No vascular abnormality found. 2. Mildly expansile radiolucency within the marrow space of the right frontal calvarium, present in retrospect on prior MR scanning from January of 2018. Etiology is uncertain. Please correlate with the patient given the apparent outward convexity of the area over the marrow space lucency, which likely has been evident to the patient over time. Any quantitative measurements of stenosis were performed using NASCET criteria. Dictated by: Christiano Ashford M.D. on 12/16/2020 at 9:13 Approved by: Christiano Ashford M.D. on 12/16/2020 at 9:19
--- NOTE | 2020-12-16 03:32 | ED_ITS ---
HPI - Neuro Symptoms/Deficit General Chief Complaint: Neuro Symptoms/Deficit Stated Complaint: Code stroke Time Seen by Provider: 12/16/20 03:22 Source: patient and EMS Mode of arrival: EMS Limitations: no limitations History of Present Illness HPI Narrative: 65-year-old female nonsmoker with history of hypertension, diabetes presents with stroke-like symptoms or 1st noted just prior to her arrival. Her last known normal was 2100 when she went to bed. She woke up just prior to arrival to urinate and she fell and then called 911 due to concern for stroke. She is activated as code stroke and taken directly to CT. She does fall outside at the window for tPA but has a positive LAMS and is therefore possible Code IR. She states she has been in her normal state of health and denies any recent neurologic abnormalities. She has had no recent trauma and takes no blood thinners. She has numbness and tingling as well as weakness on the left side of her face and near complete weakness of left upper and lower extremity with associated numbness and tingling. Onset (ago): hour(s) Last Observed Normal: 21:00 Timing confirmed by: spouse Location: speech, left face, left arm and left leg History of same: No Severity: severe Quality: weak and numb Relieving factors: none Exacerbating factors: none Context: sudden onset and recent fall On Anticoagulants: No Associated symptoms: confusion Treatments Prior to Arrival: none Related Data Home Medications Medication Instructions Recorded Confirmed aspirin 81 mg tablet,delayed 81 mg PO DAILY 03/08/18 07/03/20 release Previous Rx's Medication Instructions Recorded insulin glargine 100 unit/mL (3 30 unit SUBCUT DAILY #30 ml 02/22/20 mL) subcutaneous pen metoprolol succinate 25 mg 25 mg PO DAILY #90 tab 02/22/20 tablet,extended release 24 hr pen needle, diabetic 32 gauge x See Rx Instructions .ROUTE 02/22/20 .COMPLEX #600 each metformin 1,000 mg tablet 1,000 mg PO BID #180 tab 09/05/20 lisinopril 5 mg tablet 10 mg PO DAILY #90 tab 10/28/20 liraglutide 0.6 mg/0.1 mL (18 mg/3 See Rx Instructions SUBCUT 12/08/20 mL) subcutaneous pen injector .COMPLEX #9 ml Allergies Allergy/AdvReac Type Severity Reaction Status Date / Time No Known Drug Allergies Allergy Verified 07/02/20 09:02 Review of Systems Constitutional Constitutional: Denies chills, Denies fatigue, Denies fever(s), Reports frequent falls, Denies lethargy and Reports weakness Eyes Eyes: Denies change in vision, Denies eye discharge, Denies irritation and Denies loss of vision ENT Ears, Nose, Mouth, and Throat: Denies change in voice, Denies dizziness, Denies neck pain, Denies sore throat and Denies throat swelling Cardiovascular Cardiovascular: Denies chest pain, Denies irregular heart rhythm, Denies lightheadedness, Denies palpitations, Denies dyspnea, Denies dyspnea on exertion and Denies orthopnea Respiratory Respiratory: Denies cough, Denies dyspnea, Denies dyspnea on exertion and Denies wheezing Gastrointestinal Gastrointestinal: Denies abdominal pain, Denies change in bowel habits, Denies diarrhea, Denies nausea and Denies vomiting Musculoskeletal Musculoskeletal: Denies neck pain and Reports numbness Integumentary/Breasts Skin/Breast: Denies pruritus, Denies erythema, Denies rash and Denies wounds Neurologic Neurologic: Denies behavioral changes, Denies confusion, Denies dizziness, Reports frequent falls, Denies loss of vision, Reports numbness and Reports weakness Psychiatric Psychiatric: Denies anxiety, Denies behavioral changes, Denies confusion, Denies depression, Denies homicidal ideation and Denies suicidal ideation Endocrine Endocrine: Denies fatigue, Denies flushing and Denies palpitations Hematologic/Lymphatic Hematologic/Lymphatic: Denies easy bruising On Anticoagulants: No Allergic/Immunologic Allergic/Immunologic: Denies urticaria, Denies throat swelling and Denies wheezing Patient History Medical History Diabetes mellitus Essential hypertension History of ventricular tachycardia Hyperlipidemia Surgical History Status post delivery (~1983) Status post delivery (~1985) Status post delivery (~1987) Status post cholecystectomy (~2013) Family History Mother No problems noted. Social History marital status: household members: significant other occupational status: employed (Formerly [facility] [employer]) Smoking Status: Never smoker alcohol intake: current substance use type: does not use Smoking Status: Never smoker alcohol intake frequency: 0-2 drinks per day Substance Use Type: does not use Exam Narrative Exam Narrative: GENERAL: [65] year old patient appears stated age. Well- nourished, well-developed patient, in obvious distress, tearful HEAD: Atraumatic. Normocephalic. EYES: Pupils equal round and reactive. Extraocular motions intact. No scleral icterus. No injection or drainage. ENT: Nose without bleeding, purulent drainage. Throat without erythema, tonsillar hypertrophy or exudate. Airway patent. NECK: Trachea midline. Non tender CARDIOVASCULAR: Regular rate and rhythm without murmurs, gallops, or rubs. RESPIRATORY: Clear to auscultation. Breath sounds equal bilaterally. No wheezes, rales, or rhonchi. GASTROINTESTINAL: Abdomen soft, non-tender, nondistended. EXTREMITIES: No edema or joint tenderness. BACK: Nontender without deformity or crepitance. No flank tenderness. NEURO: Alert to person and place SKIN: No rash or erythema of visible areas Initial Vital Signs Initial Vital Signs: Vital Signs Temperature 98.8 F 12/16/20 03:22 Pulse Rate 96 H 12/16/20 03:22 Respiratory Rate 18 12/16/20 03:22 Blood Pressure 190/95 H 12/16/20 03:22 Pulse Oximetry 98 12/16/20 03:22 Scores NIH Stroke Scale Level of Conciousness: Alert, keenly responsive Ask month/age: Answers one question correctly, intubated follow commands Open/close eyes, close hand: Performs both tasks correctly Best gaze horizontal: Normal Visual lora: No visual loss Facial palsy: Partial paralysis, total or near total paralysis of lower face Left arm drift: Some effort against gravity, cannot maintain, drifts down to bed Right arm drift: No drift for full 10 sec Left leg drift: Some effort against gravity, cannot maintain, drifts down to bed Right leg drift: No drift for full 5 sec Limb ataxia: Absent Sensory on face/arms/legs: Mild to moderate sensory loss, can tell touch Best language: No aphasia, normal Dysarthria: Mild to mod,some slurring Extinction or inattention: No abnormality Total NIH Stroke scale score: 9 Course Orders Ordered: ED Orders 12/16/20 EC echo doppler complete Stat 12/16/20 03:[address] angio head and neck Stat Urine Drug Screen, Rapid Stat EKG-12 Lead Stat 12/16/20 03:38 Basic Metabolic Panel Stat Complete Blood Count AUTO DIFF Stat Hemoglobin A1C% w Est Avg Glu Urgent Partial Thromboplastin Time Stat Prothrombin Time INR Stat Thyroid Stimulating Hormone Urgent 12/16/20 03:44 COVID19 -Nasal swab/Pre-Proc Stat 12/16/20 04:59 Consult to Discharge Planning Routine Consult to Occupational Therapy Evaluate & Treat Consult to Physical Therapy Evaluate & Treat Consult to Speech Therapy Evaluate & Treat MR stroke Stat 12/17/20 05:00 Complete Blood Count AUTO DIFF DAILY Comprehensive Metabolic Panel DAILY Prothrombin Time INR DAILY 12/18/20 05:00 Complete Blood Count AUTO DIFF DAILY Comprehensive Metabolic Panel DAILY Prothrombin Time INR DAILY 12/19/20 05:00 Complete Blood Count AUTO DIFF DAILY Comprehensive Metabolic Panel DAILY Prothrombin Time INR DAILY Aspirin (Aspirin Ec 81 Mg Tablet) 81 mg PO DAILY OJSE DAVID Atorvastatin Calcium (Atorvastatin 20 Mg Tablet) 80 mg PO BEDTIME JOSE DAVID Clopidogrel Bisulfate (Clopidogrel 75 Mg Tablet) 75 mg PO DAILY JOSE DAVID Dextrose (Dextrose 50 % In Water 25 Gm/50 Ml Syringe) 25 gm IV PRN PRN PRN Reason: Hypoglycemia Sodium Chloride (Normal Saline 0.9%) 1,000 mls @ 150 mls/hr IV CONT JOSE DAVID Last Admin: 12/16/20 04:27 Dose: 150 mls/hr Documented by: SANYA Insulin Aspart (Insulin Aspart 100 Unit/Ml Insuln Pen) 0 unit SUBCUT ACHS JOSE DAVID; Protocol Naloxone HCl (Naloxone 0.4 Mg/Ml Vial) 0.2 mg IV Q2MIN PRN PRN Reason: Opiate Reversal Discontinued Medications Alteplase, Recombinant (Alteplase 100 Mg Vial) 5.3 mg 0.09 mg/kg (5.3 mg) IV NOW ONE Stop: 12/16/20 04:12 Last Admin: 12/16/20 05:05 Dose: Not Given Documented by: SANYA Alteplase, Recombinant (Alteplase 100 Mg Vial) 47.8 mg 0.81 mg/kg (47.8 mg) IV NOW ONE Stop: 12/16/20 04:12 Last Admin: 12/16/20 05:05 Dose: Not Given Documented by: SANYA Aspirin (Aspirin 81 Mg Chew Tab) 324 mg PO NOW ONE Stop: 12/16/20 05:23 Last Admin: 12/16/20 05:33 Dose: 324 mg Documented by: JOSE A Aspirin (Aspirin 325 Mg Tablet) 325 mg PO NOW ONE Stop: 12/16/20 05:26 Last Admin: 12/16/20 05:34 Dose: Not Given Documented by: SANYA Labetalol HCl (Labetalol 20 Mg/4 Ml Syringe) 10 mg IV NOW ONE Stop: 12/16/20 04:23 Last Admin: 12/16/20 04:27 Dose: 10 mg Documented by: SANYA Reevaluation(s) Reevaluation #1: 0410 - called into room and patient and tell me that she states she felt completely normal at 0230 and her arm and leg became week at 0300. This changes the trajectory and now she would fit in the window for TPA. 0430 - Patient now states that she isn't so certain about how she felt at 0230. We have involved the TeleStroke Provider and this commentary evolved during the discussion. We will stand down on TPA. Consultations Consultation #1: [id number] call to TeleStroke for help with CTA 0355 - call to [facility] for weather check 0355 - Call to [facility] to discuss possible Vital Signs Vital signs: Vital Signs - 8 hr 12/16/20 03:22 12/16/20 03:35 12/16/20 03:41 Temperature 98.8 F Pulse Rate 96 H 100 H 96 H Respiratory Rate 18 20 Blood Pressure 190/95 H 190/95 H Pulse Oximetry 98 94 96 12/16/20 03:46 12/16/20 04:00 12/16/20 04:17 Temperature Pulse Rate 96 H 93 H 91 H Respiratory Rate 20 17 14 Blood Pressure 191/91 H 193/88 H 176/79 H Pulse Oximetry 96 94 97 12/16/20 04:28 12/16/20 04:30 12/16/20 04:45 Temperature Pulse Rate 91 H 91 H 91 H Respiratory Rate 18 20 18 Blood Pressure 171/89 H 175/88 H 171/90 H Pulse Oximetry 96 94 92 12/16/20 05:00 12/16/20 05:15 Temperature Pulse Rate 92 H 92 H Respiratory Rate 19 16 Blood Pressure 175/91 H 177/74 H Pulse Oximetry 94 95 MDM - Neuro Symptoms/Deficit Lab Data Result diagrams: 12/16/20 03:38 12/16/20 03:38 Labs: Lab Results 12/16/20 12/16/20 12/16/20 Range/Units 03:38 03:38 03:38 WBC 6.6 (4.5-11.0) X10^3/uL RBC 4.75 (4.0-5.2) X10^6/uL Hgb 13.7 (12.0-16.0) g/dL Hct 40.0 (36-46) % MCV 84.3 (80-100) fL MCH 28.9 (26-34) PG MCHC 34.3 (30-36) % RDW 13.4 (11.6-14.8) % Plt Count 273 (150-400) X10^3/uL Neut % (Auto) 51.6 (50-75) % Lymph % (Auto) 41.9 H (25-40) % [place] % (Auto) 2.8 L (3-14) % Eos % (Auto) 3.4 (2-4) % Baso % (Auto) 0.3 (0-2) % Neut # (Auto) 3400 (9595-9224) /uL Lymph # (Auto) 2800 (4437-9677) /uL [place] # (Auto) 200 (0-900) /uL Eos # (Auto) 200 (0-450) /uL Baso # (Auto) 0 (0-100) /uL PT 10.9 (10.1-12.7) SECONDS INR 1.0 (0.9-1.3) APTT 33 (26.4-36.2) SECONDS Sodium 137 (137-145) mmol/L Potassium 3.9 (3.4-5.1) mmol/L Chloride 103 (98-107) mmol/L Carbon Dioxide 24 (22-32) mmol/L BUN 11 (7-17) mg/dL Creatinine 0.55 (0.52-1.04) mg/dL Estimated GFR > 60.0 (>60) mL/min BUN/Creatinine Ratio 20.0 (6-22) Glucose 127 H (80-110) mg/dL Hemoglobin A1c (4.0-6.0) % Calcium 9.1 (8.4-10.2) mg/dL SARS-CoV-2 (PCR) (Negative) 12/16/20 12/16/20 Range/Units 03:38 03:44 WBC (4.5-11.0) X10^3/uL RBC (4.0-5.2) X10^6/uL Hgb (12.0-16.0) g/dL Hct (36-46) % MCV (80-100) fL MCH (26-34) PG MCHC (30-36) % RDW (11.6-14.8) % Plt Count (150-400) X10^3/uL Neut % (Auto) (50-75) % Lymph % (Auto) (25-40) % [place] % (Auto) (3-14) % Eos % (Auto) (2-4) % Baso % (Auto) (0-2) % Neut # (Auto) (4128-3058) /uL Lymph # (Auto) (7875-1953) /uL [place] # (Auto) (0-900) /uL Eos # (Auto) (0-450) /uL Baso # (Auto) (0-100) /uL PT (10.1-12.7) SECONDS INR (0.9-1.3) APTT (26.4-36.2) SECONDS Sodium (137-145) mmol/L Potassium (3.4-5.1) mmol/L Chloride (98-107) mmol/L Carbon Dioxide (22-32) mmol/L BUN (7-17) mg/dL Creatinine (0.52-1.04) mg/dL Estimated GFR (>60) mL/min BUN/Creatinine Ratio (6-22) Glucose (80-110) mg/dL Hemoglobin A1c 6.4 H (4.0-6.0) % Calcium (8.4-10.2) mg/dL SARS-CoV-2 (PCR) Negative (Negative) Point of Care Testing Glucose POC [address] scan - head: Attestation: I personally reviewed and interpreted this imaging study as follows: My Impression: NAP Radiologist's Impression: No acute intracranial abnormality. ([facility] at 0349) ECG Data Attestation: I personally reviewed and interpreted this ECG as follows: Interpretation: EKG is normal sinus rhythm rate [91 ] and free of any signs of ischemia or ectopy. No ST segmental elevation or depression. No T wave inversions Discharge Plan Departure Patient Disposition: Admitted As Inpatient Clinical Impression: Cerebrovascular accident Admit Date/Time: 12/16/20 05:17 Admit Provider: Amber Eckert
[2020-12-16 03:54] LABS: Add Manual Diff / Slide Review NO; Basophils Absolute Auto 0 /uL (0-100); Basophils Percent Auto 0.3 % (0-2); Eosinophils Absolute Auto 200 /uL (0-450); Eosinophils Percent Auto 3.4 % (2-4); Hemoglobin 13.7 g/dL (12.0-16.0); Lymphocytes Absolute Auto 2800 /uL (1100-4500); Lymphocytes Percent Auto 41.9 % (25-40); Mean Corpuscular HGB Conc 34.3 % (30-36); Mean Corpuscular Hemoglobin 28.9 PG (26-34); Mean Corpuscular Volume 84.3 fL (80-100); Monocytes Absolute Auto 200 /uL (0-900); Monocytes Percent Auto 2.8 % (3-14); Neutrophils Absolute Auto 3400 /uL (1500-7000); Neutrophils Percent Auto 51.6 % (50-75); Platelet Count 273 X10^3/uL (150-400); Red Blood Cell Count 4.75 X10^6/uL (4.0-5.2); Red Cell Distribution Width 13.4 % (11.6-14.8); White Blood Cell Count 6.6 X10^3/uL (4.5-11.0)
[2020-12-16 03:59] LABS: Prothrombin Time 10.9 SECONDS (10.1-12.7)
[2020-12-16 04:01] LABS: COVID19 -Nasal RAPID Negative (Negative)
[2020-12-16 04:01] LABS: PTT Partial Thromboplastin Tim 33 SECONDS (26.4-36.2)
[2020-12-16 04:16] LABS: Blood Urea Nitrogen 11 mg/dL (7-17); Calcium 9.1 mg/dL (8.4-10.2); Carbon Dioxide 24 mmol/L (22-32); Chloride 103 mmol/L (98-107); Estimated Glomerular Filt Rate > 60.0 mL/min (>60); Glucose 127 mg/dL (80-110); HEMOLYSIS < 15 (0-50); Potassium 3.9 mmol/L (3.4-5.1); Sodium 137 mmol/L (137-145)
[2020-12-16] MEDS: LABETALOL 20 MG/4 ML SYRINGE 10 MG IV (04:27)
[2020-12-16] MEDS: SODIUM CHLORIDE 0.9% 1,000 ML 150 ML IV (04:27)
--- NOTE | 2020-12-16 04:59 | DI.MRI.S_ITS ---
PROCEDURE: MR STROKE Pre- and post-contrast brain MRI, non-contrast brain MR angiogram, pre- and postcontrast neck MR angiogram INDICATIONS: Stroke TECHNIQUE: Brain: Noncontrast axial T1 spin echo, axial T2 fast spin echo, sagittal and axial FLAIR, coronal T2 fast spin echo, axial gradient echo, axial diffusion and ADC through the brain. After the administration of contrast, axial 3D VIBE of the cranial vasculature and brain. Brain MRA: Non-contrast 3-D time of flight MR angiogram, with multiple dytxxya-tscexckze-cjjlhnnjsd (MIP) reformats performed. Neck MRA: Axial and sagittal TruFISP through the neck. Coronal dynamic MR angiogram during administration of contrast in the arterial and venous phases, with 3-dimenstional pnhkydl-hsnndpswl-odinclkjht (MIP) reformats constructed from subtraction images. COMPARISON: None. FINDINGS: Image quality: Excellent. BRAIN: CSF spaces: Ventricles are normal in size and shape. Basal cisterns are patent. No extra-axial fluid collections. Brain: No intracranial bleeds or mass effects. Minimal punctate foci of T2/FLAIR in the subcortical white matter is consistent with chronic small vessel ischemic change. Rg-white matter interface is normal. Diffusion-weighted images demonstrate a 7 millimeter and adjacent 3 millimeter focus of diffusion restriction with signal loss on ADC map in the right thalamus and posterior limb of the internal capsule. Brainstem appears normal. Normal intravascular flow voids are present. No abnormal intracranial enhancement. Skull and face: Calvarial marrow signal is normal. Orbits appear normal. Sinuses: Sinuses and mastoids are clear. BRAIN MR ANGIOGRAM: Anterior circulation: Intracranial internal carotid arteries are normal in size and enhancement. The flow within the paired anterior cerebral arteries is normal and symmetric. The flow within the middle cerebral arteries is normal and symmetric. The anterior communicating artery is seen. No stenoses, occlusions, or aneurysms. Posterior circulation: The visualized portions of the vertebral arteries demonstrate normal caliber, and join to form a normal appearing basilar artery. There is a focal area with no flow seen in the P2 segment of the right [employer]. The flow within the left posterior cerebral artery is normal and symmetric. No stenoses, occlusions, or aneurysms. NECK MR ANGIOGRAM: Carotids: Great vessels demonstrate a conventional anatomy as they arise from the aortic arch. The origins of the common carotid arteries appear patent. The calibers and courses of both common carotid arteries are normal. The bifurcation regions appear normal bilaterally. The internal carotid arteries demonstrate normal course and caliber. Posterior circulation: The origins of the vertebral arteries appear patent. More superior portions of both vertebral arteries demonstrate normal course and caliber, and join to form a normal appearing basilar artery. Miscellaneous: Subclavian arteries appear patent. Pre-contrast images through the neck show no soft tissue abnormalities. IMPRESSION: BRAIN MRI: Adjacent 7 millimeter and 3 millimeter foci of diffusion restriction in the right thalamus and posterior limb of the internal capsule consistent with acute ischemia. BRAIN MR ANGIOGRAM: Focal segment of loss of flow in the P2 segment of the right [employer] likely stenosis from atherosclerotic disease. Distally the [employer] is patent with normal flow. NECK MR ANGIOGRAM: Normal with no significant stenosis. Findings were discussed with Dr. Amado at 10:45 a.m. on 12/16/2020. Dictated by: Vini Lau M.D. on 12/16/2020 at 10:24 Approved by: Viin Lau M.D. on 12/16/2020 at 10:58
--- NOTE | 2020-12-16 05:07 | PM.HP.1 ---
History of Present Illness History of Present Illness Date Patient Seen: 12/16/20 Time Patient Seen: 05:07 Chief complaint: Code stroke Narrative: Patient is a 65-year-old female [employer] nonsmoker with history of hypertension, diabetes presents with stroke-like symptoms or 1st noted just prior to her arrival. Her last known normal was 2100 when she went to bed. She woke up just prior to arrival to urinate and she fell and then called 911 due to concern for stroke. She is activated as code stroke and taken directly to CT. She does fall outside at the window for tPA but has a positive LAMS and is therefore possible Code IR. She states she has been in her normal state of health and denies any recent neurologic abnormalities. She has had no recent trauma and takes no blood thinners. She has numbness and tingling as well as weakness on the left side of her face and near complete weakness of left upper and lower extremity with associated numbness and tingling. Patient complains of a mild headache, no changes in vision, chest pain, shortness of breath, abdominal pain, nausea, vomiting. Denies recent illness injury or trauma. Patient denies any previous symptoms like this prior. Patient's vitals upon admission temp 98.8?, BP 171/90, HR 91, RR 18, O2 saturation 90% on room air. All patient's labs were within normal limits with the exception of a glucose of 127. Head CT:No acute intracranial abnormality. EKG: is normal sinus rhythm rate 91 and free of any signs of ischemia or ectopy. No ST segmental elevation or depression. No T wave inversions. Patient is being admitted for left-sided weakness neurological deficit rule out stroke, with an NIHSS score of 9. ED Consults Per Dr. Berger: Reevaluation #1: 0410 - called into room and patient and tell me that she states she felt completely normal at 0230 and her arm and leg became week at 0300. This changes the trajectory and now she would fit in the window for TPA. 0430 - Patient now states that she isn't so certain about how she felt at 0230. We have involved the TeleStroke Provider and this commentary evolved during the discussion. We will stand down on TPA.Consultation #1: 0350 call to TeleStroke for help with CTA 0355 - call to [facility] for weather check [phone] - Call to [place] to discuss possible. It was determined by tele stroke that patient was not a candidate for any further interventions outside facility. Patient History Medical History Diabetes mellitus Essential hypertension History of ventricular tachycardia Hyperlipidemia Surgical History Status post delivery (~1983) Status post delivery (~1985) Status post delivery (~1987) Status post cholecystectomy (~2013) Family & Social History Family History Mother Hypertension Father Congestive heart failure Social History: household members patient lives with her , and 14-year-old son. 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 Safety & Behavioral: Feels Safe in Current Yes Environment Been Physically Hurt or No Threatened By a Person Tobacco & Substance use: Smoking Status Never smoker alcohol intake current alcohol intake frequency 0-2 drinks per day Substance Use Type does not use Meds Home Medications and Allergies Home Medications Medication Instructions Recorded Confirmed Type aspirin 81 mg tablet,delayed 81 mg PO DAILY 03/08/18 12/16/20 History release insulin glargine 100 unit/mL (3 30 unit SUBCUT DAILY #30 ml 02/22/20 12/16/20 Rx mL) subcutaneous pen metoprolol succinate 25 mg 25 mg PO DAILY #90 tab 02/22/20 12/16/20 Rx tablet,extended release 24 hr pen needle, diabetic 32 gauge x See Rx Instructions .ROUTE 02/22/20 12/16/20 Rx 5/32 .COMPLEX #600 each metformin 1,000 mg tablet 1,000 mg PO BID #180 tab 09/05/20 12/16/20 Rx lisinopril 5 mg tablet 10 mg PO DAILY #90 tab 10/28/20 12/16/20 Rx liraglutide 0.6 mg/0.1 mL (18 mg/3 See Rx Instructions SUBCUT 12/08/20 12/16/20 Rx mL) subcutaneous pen injector .COMPLEX #9 ml Allergies Allergy/AdvReac Type Severity Reaction Status Date / Time No Known Drug Allergies Allergy Verified 07/02/20 09:02 Review of Systems Constitutional Constitutional: Reports headache(s) and Reports weakness ENT Ears, Nose, Mouth, and Throat: Yes headache(s) and Yes disequilibrium Musculoskeletal Musculoskeletal: Reports numbness and Reports tingling Neurologic Neurologic: Reports headache(s), Reports localized weakness, Reports numbness, Reports tingling, Reports disequilibrium and Reports weakness Exam Vital Signs (past 8 hours): - 12/16/20 03:22 12/16/20 03:35 12/16/20 03:41 Temperature 98.8 F Pulse Rate 96 H 100 H 96 H Respiratory Rate 18 20 Blood Pressure 190/95 H 190/95 H Pulse Oximetry 98 94 96 12/16/20 03:46 12/16/20 04:00 12/16/20 04:17 Temperature Pulse Rate 96 H 93 H 91 H Respiratory Rate 20 17 14 Blood Pressure 191/91 H 193/88 H 176/79 H Pulse Oximetry 96 94 97 12/16/20 04:28 12/16/20 04:30 12/16/20 04:45 Temperature Pulse Rate 91 H 91 H 91 H Respiratory Rate 18 20 18 Blood Pressure 171/89 H 175/88 H 171/90 H Pulse Oximetry 96 94 92 12/16/20 05:00 Temperature Pulse Rate 92 H Respiratory Rate 19 Blood Pressure 175/91 H Pulse Oximetry 94 Oxygen Delivery Method Room Air Narrative Exam Narrative: GENERAL: Female patient appears stated age. Well-nourished, well-developed patient, in obvious distress at this time. HEAD: Atraumatic. Normocephalic. Noted left-sided facial droop EYES: Pupils equal round and reactive. Extraocular motions intact. No scleral icterus. No injection or drainage. ENT: Nose without bleeding, purulent drainage. Throat without erythema, tonsillar hypertrophy or exudate. Airway patent. NECK: Trachea midline. Non tender CARDIOVASCULAR: Regular rate and rhythm without murmurs, gallops, or rubs. RESPIRATORY: Clear to auscultation. Breath sounds equal bilaterally. No wheezes, rales, or rhonchi. GASTROINTESTINAL: Abdomen soft, non-tender, nondistended. Noted left-sided extremity weakness patient is unable to lift arm or leg off the bed. EXTREMITIES: No edema or joint tenderness. BACK: Nontender without deformity or crepitance. No flank tenderness. NEURO: Alert to person, place, and time. SKIN: No rash or erythema of visible areas Objective Labs Result Diagrams: 12/16/20 03:38 04/20/21 03:38 Labs: Laboratory Results - last 24 hr 12/16/20 12/16/20 12/16/20 03:38 03:38 03:38 WBC 6.6 RBC 4.75 Hgb 13.7 Hct 40.0 MCV 84.3 MCH 28.9 MCHC 34.3 RDW 13.4 Plt Count 273 Neut % (Auto) 51.6 Lymph % (Auto) 41.9 H [place] % (Auto) 2.8 L Eos % (Auto) 3.4 Baso % (Auto) 0.3 Neut # (Auto) 3400 Lymph # (Auto) 2800 [place] # (Auto) 200 Eos # (Auto) 200 Baso # (Auto) 0 PT 10.9 INR 1.0 APTT 33 Sodium 137 Potassium 3.9 Chloride 103 Carbon Dioxide 24 BUN 11 Creatinine 0.55 Estimated GFR > 60.0 BUN/Creatinine Ratio 20.0 Glucose 127 H Calcium 9.1 SARS-CoV-2 (PCR) 12/16/20 03:44 WBC RBC Hgb Hct MCV MCH MCHC RDW Plt Count Neut % (Auto) Lymph % (Auto) [place] % (Auto) Eos % (Auto) Baso % (Auto) Neut # (Auto) Lymph # (Auto) [place] # (Auto) Eos # (Auto) Baso # (Auto) PT INR APTT Sodium Potassium Chloride Carbon Dioxide BUN Creatinine Estimated GFR BUN/Creatinine Ratio Glucose Calcium SARS-CoV-2 (PCR) Negative Assessment & Plan Assessment & Plan narrative: 1. Left sided weakness (facial droop, left arm, left leg) rule out stroke/TIA, acute, present on admission Patient's vitals upon admission temp 98.8?, BP 171/90, HR 91, RR 18, O2 saturation 90% on room air. All patient's labs were within normal limits with the exception of a glucose of 127. Head CT:No acute intracranial abnormality. EKG: is normal sinus rhythm rate 91 and free of any signs of ischemia or ectopy. No ST segmental elevation or depression. No T wave inversions. Patient is being admitted for left-sided weakness neurological deficit rule out stroke, with an NIHSS score of 9. ED Consults Per Dr. Berger: Reevaluation #1: 0410 - called into room and patient and tell me that she states she felt completely normal at 0230 and her arm and leg became week at 0300. This changes the trajectory and now she would fit in the window for TPA. 0430 - Patient now states that she isn't so certain about how she felt at 0230. We have involved the TeleStroke Provider and this commentary evolved during the discussion. We will stand down on TPA.Consultation #1: 0350 call to TeleStroke for help with CTA 0355 - call to [facility] for weather check 0355 - Call to [place] to discuss possible. It was determined by tele stroke that patient was not a candidate for any further interventions outside facility. -patient admitted on telemetry stroke protocol in place, NIHSS Q shift, NIHSS on admission 9 -patient to be monitored on tele medicine, aspiration precautions, initial neuro assessment, vital signs Q 2 hours times 12, then q.4 hours times 12, then Q shift, intake and output monitored Q shift, weight measure daily, diet: NPO until bedside swallow completed and cleared, then patient may advance as tolerated to low carbohydrate diet. Provider to be notified for HR >120, RR >36, BP <90/60, Temp >102. -head CT was negative, MR head & echo ordered per protocol: for today -patient placed on ASA 81 mg daily and Plavix 80 mg, atorvastatin 80 mg -continue patient's lisinopril and metoprolol. -a.m. labs ordered CMP and CBC daily, A1c, Mag, lipids, TSH, PT/PTT, serial troponins x3. -consults ordered physical therapy, occupational therapy, speech therapy. -prevention vaccine recommend yearly flu vaccine 2. Hypertension essential, acute on chronic, present on admission -continue patient's lisinopril and metoprolol 3. Diabetes mellitus type 2 insulin-dependent, acute on chronic chronic, present on admission -will hold oral anti-glycemic regimen medications, glucose on admission:127 -patient on diabetic protocol and medium does insulin sliding scale, blood sugars ACHS -Patient placed on a reduced carbohydrate diet Code status: Full code Surrogate decision maker:Spouse Cr MEZA PCR: Negative VTE/DVT prophylaxis: Contraindicated patient placed on Plavix 80 mg, and SCDs Scores GCS Zane coma scale eye opening: Spontaneous Zane coma scale verbal response: Orientated Zane coma scale motor response: Obey commands Zane coma scale total score: 15 NIHSS Level of Conciousness: Alert, keenly responsive Ask month/age: Answers both questions correctly. Open/close eyes, close hand: Performs both tasks correctly Best gaze horizontal: Normal Visual lora: No visual loss Facial palsy: Partial paralysis, total or near total paralysis of lower face Left arm drift: Some effort against gravity, cannot maintain, drifts down to bed Right arm drift: No drift for full 10 sec Left leg drift: Some effort against gravity, cannot maintain, drifts down to bed Right leg drift: No drift for full 5 sec Limb ataxia: Present in two limbs Sensory on face/arms/legs: Normal, no sensory loss Best language: Mild to moderate, slurs some words Dysarthria: Normal Extinction or inattention: No abnormality Total NIH Stroke scale score: 9 Wells' Criteria for PE Clinical signs and symptoms of DVT: No PE is #1 Dx or equally likely: No Heart rate > 100: No Immobilization at least 3 days or surg in previous 4 weeks: No History of PE or DVT: No Hemoptysis: No Malignancy w/Treatment within 6 months or palliative: No Wells' PE Score total: 0
[2020-12-16 05:22] LABS: Hemoglobin A1C% w Est Avg Glu 6.4 % (4.0-6.0)
[2020-12-16] MEDS: ASPIRIN 81 MG CHEW TAB 324 MG PO (05:33)
[2020-12-16 05:51] LABS: Thyroid Stimulating Hormone 1.55 uIU/mL (0.47-4.68)
--- NOTE | 2020-12-16 08:43 | PC.NURSE ---
Day shift: Pt off unit for MRI at approx 0815.
[2020-12-16 08:49] LABS: Hemoglobin A1C% w Est Avg Glu 6.4 % (4.0-6.0)
[2020-12-16 08:54] LABS: Creatine Kinase 61 U/L (30-135)
[2020-12-16 08:54] LABS: Magnesium 1.3 mg/dL (1.6-2.3)
[2020-12-16 09:08] LABS: Troponin I < 0.012 ng/mL (0.01-0.034)
--- NOTE | 2020-12-16 09:16 | PC.NURSE ---
Day shift: Pt back on AC unit at approx 0915 from MRI. On BSC at tis time. Will be placed back on tele and IV fluids. ST will perform assessment at this time as well. UA will be sent to lab as well. Call light in reach. Awaiting report from ST and will discuss diet orders w/ MD. Will continue w/ plan of care.
[2020-12-16 09:24] LABS: TSH w/ Reflex to FT4 1.26 uIU/mL (0.47-4.68)
[2020-12-16 09:29] LABS: UR Morphine/Opiate cutoff 300 Negative (Negative); Ur Creatinine Normal (Normal); Ur Specific Gravity Normal (Normal); Urine Amphetamines Negative (Negative); Urine Barbiturates Negative (Negative); Urine Benzodiazepines Negative (Negative); Urine Cocaine Negative (Negative); Urine MDMA Negative (Negative); Urine Methadone Negative (Negative); Urine Methamphetamines Negative (Negative); Urine Oxycodone Negative (Negative); Urine Phencyclidine Negative (Negative); Urine Tetrahydrocannabinol Negative (Negative); Urine Tricyclic Antidepressant Negative (Negative); Urine pH Normal (Normal)
[2020-12-16] MEDS: lisinopriL 5 MG TABLET 10 MG PO (09:33)
[2020-12-16] MEDS: METOPROLOL ER 25 MG TABLET PO (09:33)
[2020-12-16] MEDS: ASPIRIN EC 81 MG TABLET PO (09:33)
[2020-12-16] MEDS: CLOPIDOGREL 75 MG TABLET PO (09:33)
--- NOTE | 2020-12-16 10:16 | P.PN_ITS ---
Subjective Subjective Date Patient Seen: 12/16/20 Time Patient Seen: 09:16 Interval history: She continues to note significant weakness on her left side in her arm and leg. She has not noticed improvement. She has passed her swallow evaluation, though did have some left sided weakness as well. She has no further concerns at this moment, but is understandably very discouraged currently. Exam Vital Signs (past 8 hours): - 12/16/20 03:22 12/16/20 03:35 12/16/20 03:41 Temperature 98.8 F Pulse Rate 96 H 100 H 96 H Respiratory Rate 18 20 Blood Pressure 190/95 H 190/95 H Pulse Oximetry 98 94 96 12/16/20 03:46 12/16/20 04:00 12/16/20 04:17 Temperature Pulse Rate 96 H 93 H 91 H Respiratory Rate 20 17 14 Blood Pressure 191/91 H 193/88 H 176/79 H Pulse Oximetry 96 94 97 12/16/20 04:28 12/16/20 04:30 12/16/20 04:45 Temperature Pulse Rate 91 H 91 H 91 H Respiratory Rate 18 20 18 Blood Pressure 171/89 H 175/88 H 171/90 H Pulse Oximetry 96 94 92 12/16/20 05:00 12/16/20 05:15 12/16/20 05:30 Temperature Pulse Rate 92 H 92 H 92 H Respiratory Rate 19 16 13 Blood Pressure 175/91 H 177/74 H 152/76 H Pulse Oximetry 94 95 96 12/16/20 05:45 12/16/20 05:59 12/16/20 08:14 Temperature 97.1 F L 97.8 F Pulse Rate 91 H 93 H 91 H Respiratory Rate 16 18 15 Blood Pressure 150/77 H 163/93 H 151/83 H Pulse Oximetry 92 95 95 12/16/20 09:06 Temperature Pulse Rate Respiratory Rate Blood Pressure Pulse Oximetry 95 Oxygen Delivery Method Room Air Oxygen Flow Rate 0 Narrative Exam Narrative: GENERAL: No acute distress currently HEAD: Atraumatic. Normocephalic. Left sided facial droop EYES: PERRL. Extraocular motions intact. No scleral icterus. HEENT: moist mucous membranes CARDIOVASCULAR: Regular rate and rhythm with no murmurs, gallops, or rubs. RESPIRATORY: Clear to auscultation bilaterally. No wheezes, rales, or rhonchi. GASTROINTESTINAL: Abdomen soft, non-tender, nondistended. EXTREMITIES: No edema NEURO: Alert to person, place, and time. Cranial nerves noted she has 4/5 strength in lifting left shoulder. She has a left facial droop. Sensation is intact. Left arm noted for 3/5 strength at bicep and 1/5 strength at wrist and 4/5 strength on fingers on left side. Left leg noted for 2/5 strength in all muscle groups. Right leg with normal strength SKIN: No rash or erythema of visible areas PSYCH: currently she is understandably discouraged Objective Labs Result Diagrams: 12/16/20 03:38 12/16/20 03:38 Labs: Laboratory Results - last 24 hr 12/16/20 12/16/20 12/16/20 03:38 03:38 03:38 WBC 6.6 RBC 4.75 Hgb 13.7 Hct 40.0 MCV 84.3 MCH 28.9 MCHC 34.3 RDW 13.4 Plt Count 273 Neut % (Auto) 51.6 Lymph % (Auto) 41.[address] [facility] % (Auto) 2.8 L Eos % (Auto) 3.4 Baso % (Auto) 0.3 Neut # (Auto) 3400 Lymph # (Auto) 2800 [facility] # (Auto) 200 Eos # (Auto) 200 Baso # (Auto) 0 PT 10.9 INR 1.0 APTT 33 Sodium 137 Potassium 3.9 Chloride 103 Carbon Dioxide 24 BUN 11 Creatinine 0.55 Estimated GFR > 60.0 BUN/Creatinine Ratio 20.0 Glucose 127 H Hemoglobin A1c Calcium 9.1 Magnesium Total Creatine Kinase CK-MB (CK-2) CK-MB (CK-2) Rel Index Troponin I TSH U Opiates 300ng/mL cut Ur Oxycodone Screen Urine Methadone Screen Ur Barbiturates Screen U Tricyclic Antidepress Ur Phencyclidine Scrn Ur Amphetamines Screen U Methamphetamines Scrn Ur MDMA Scrn (Ecstasy) U Benzodiazepines Scrn Urine Cocaine Screen U Marijuana (THC) Screen SARS-CoV-2 (PCR) 12/16/20 12/16/20 12/16/20 03:38 03:38 03:44 WBC RBC Hgb Hct MCV MCH MCHC RDW Plt Count Neut % (Auto) Lymph % (Auto) [facility] % (Auto) Eos % (Auto) Baso % (Auto) Neut # (Auto) Lymph # (Auto) [facility] # (Auto) Eos # (Auto) Baso # (Auto) PT INR APTT Sodium Potassium Chloride Carbon Dioxide BUN Creatinine Estimated GFR BUN/Creatinine Ratio Glucose Hemoglobin A1c 6.4 H Calcium Magnesium Total Creatine Kinase CK-MB (CK-2) CK-MB (CK-2) Rel Index Troponin I TSH 1.55 U Opiates 300ng/mL cut Ur Oxycodone Screen Urine Methadone Screen Ur Barbiturates Screen U Tricyclic Antidepress Ur Phencyclidine Scrn Ur Amphetamines Screen U Methamphetamines Scrn Ur MDMA Scrn (Ecstasy) U Benzodiazepines Scrn Urine Cocaine Screen U Marijuana (THC) Screen SARS-CoV-2 (PCR) Negative 12/16/20 12/16/20 12/16/20 08:10 08:11 08:20 WBC RBC Hgb Hct MCV MCH MCHC RDW Plt Count Neut % (Auto) Lymph % (Auto) [facility] % (Auto) Eos % (Auto) Baso % (Auto) Neut # (Auto) Lymph # (Auto) [facility] # (Auto) Eos # (Auto) Baso # (Auto) PT INR APTT Sodium Potassium Chloride Carbon Dioxide BUN Creatinine Estimated GFR BUN/Creatinine Ratio Glucose Hemoglobin A1c 6.4 H Calcium Magnesium Total Creatine Kinase 61 CK-MB (CK-2) TNP CK-MB (CK-2) Rel Index TNP Troponin I < 0.012 TSH 1.26 U Opiates 300ng/mL cut Ur Oxycodone Screen Urine Methadone Screen Ur Barbiturates Screen U Tricyclic Antidepress Ur Phencyclidine Scrn Ur Amphetamines Screen U Methamphetamines Scrn Ur MDMA Scrn (Ecstasy) U Benzodiazepines Scrn Urine Cocaine Screen U Marijuana (THC) Screen SARS-CoV-2 (PCR) 12/16/20 12/16/20 08:22 09:19 WBC RBC Hgb Hct MCV MCH MCHC RDW Plt Count Neut % (Auto) Lymph % (Auto) [facility] % (Auto) Eos % (Auto) Baso % (Auto) Neut # (Auto) Lymph # (Auto) [facility] # (Auto) Eos # (Auto) Baso # (Auto) PT INR APTT Sodium Potassium Chloride Carbon Dioxide BUN Creatinine Estimated GFR BUN/Creatinine Ratio Glucose Hemoglobin A1c Calcium Magnesium 1.3 L Total Creatine Kinase CK-MB (CK-2) CK-MB (CK-2) Rel Index Troponin I TSH U Opiates 300ng/mL cut Negative Ur Oxycodone Screen Negative Urine Methadone Screen Negative Ur Barbiturates Screen Negative U Tricyclic Antidepress Negative Ur Phencyclidine Scrn Negative Ur Amphetamines Screen Negative U Methamphetamines Scrn Negative Ur MDMA Scrn (Ecstasy) Negative U Benzodiazepines Scrn Negative Urine Cocaine Screen Negative U Marijuana (THC) Screen Negative SARS-CoV-2 (PCR) [facility] Medical History Diabetes mellitus Essential hypertension History of ventricular tachycardia Hyperlipidemia Surgical History Status post delivery (~1983) Status post delivery (~1985) Status post delivery (~1987) Status post cholecystectomy (~2013) Family History Mother Hypertension Father Congestive heart failure Social History marital status: household members: significant other 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 Left sided weakness (facial droop, left arm, left leg) consistent with acute CVA, acute, present on admission -patient with significant left extremity weakness acute in onset -presented to ER with LKW at approximately 9pm when going to bed, in ER at 3:22am -ER consult with telestroke who noted patient outside window for TPA -CT angio did not demonstrate clot, therefore no intervention for IR -patient admitted for medical management, got high dose asa, started plavix, and high dose atorvastatin -ECHO showed no acute abnormality, no clot -no arrhythmia on tele, or EKG -MRI brain pending -passed swallow eval -PT/OT pending -a1c 6.4 -lipid panel pending -initially BP 170s/90s, for now continue with permissive hypertension, last bp 151/83 2. Hypertension essential, acute on chronic, present on admission -continue patient's lisinopril and metoprolol but allow for permissive hypertension, so if BP drops will discontinue 3. 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 History of Vtach -continue home dose of metoprolol Code status: Full code Surrogate decision maker:Spouse Cr MEZA PCR: Negative VTE/DVT prophylaxis: SCDs
[2020-12-16] MEDS: MAGNESIUM SULFATE 4 GM/100 ML PIGGYBACK IV (10:33)
--- NOTE | 2020-12-16 10:49 | OT.IP.EVAL ---
Past Medical History (Last Reviewed 12/16/20 @ 07:36 by [facility]ERTO [facility] Diabetes mellitus Essential hypertension History of ventricular tachycardia Hyperlipidemia Surgical History (Last Reviewed 12/16/20 @ 07:36 by JUAN ALBERTO DillPOPEYE) Status post delivery (~1983) Status post delivery (~1985) Status post delivery (~1987) Status post cholecystectomy (~2013) Occupational Therapy Inpatient Evaluation/Re-Eval M1 PT/OT-IP Prior Functional Status Start: 12/16/20 11:03 Freq: NEEDED Status: Active Protocol: Document 12/16/20 11:03 [facility] (Rec: 12/16/20 11:46 [facility] [id number]) Medical Review Prior Functional Status Communication Independent Mobility and Gait Prior pt was completely independent and did not use a device for mobility needs. 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 Social History Household Members significant other Living Arrangements House Number of Floors (Floors) Two Floors Number of Stairs To Enter/Railing? No steps to get into the house and 15 steps with left hand rail going to the second floor . Home Environment Standard Height Toilet,Walk in Shower Home Equipment Shower Seat without Backrest Additional Social History Comment Pt had a fall, pt was concerned of possible CVA and came into the ER. Pt states since having COVID in 07/18 that she feels her short term memory has declined. M2 OT-IP Current Condition Start: 12/16/20 11:03 Freq: Status: Active Protocol: Document 12/16/20 11:03 [facility] (Rec: 12/16/20 11:46 [facility] [id number]) Occupational Therapy Current Condition Current Condition Evaluation Date 12/16/20 Treatment Diagnosis R CVA Diagnosis Onset Date 12/16/20 M3 OT- IP Subjective and Pain Start: 12/16/20 11:03 Freq: Status: Active Protocol: Document 12/16/20 11:03 [facility] (Rec: 12/16/20 11:46 [facility] [id number]) OT- Subjective Occupational Therapy Visit Type Type Initial Evaluation Visit Start Time 09:58 Visit Stop Time 10:49 Total Visit Minutes 52 Occupational Therapy Visit Comments Patient Comments Pt tired but agreed to do OT eval. Initially pt states not wanting to go to skilled rehab , but after discussion agreed and open to going to acute rehab. Patient/Caregiver Goals To get better and care for herself again. OT Pain Assessment Pain When Pain Assessed At Rest Pain Present Pain Present Denied Pain M4 OT- IP ADL's Start: 12/16/20 11:03 Freq: Status: Active Protocol: Document 12/16/20 11:03 [facility] (Rec: 12/16/20 11:46 [facility] [id number]) OT [id number] Comments OT Self-Feeding Comments NOt at meal time. Pt able to use right hand to drink from the water bottle. OT ADL-Grooming Comments OT Grooming Comments NOt performed. OT ADL-Oral Care Comments Oral Care Comments NOt performed. OT ADL-Dressing General Eval Lower Body Dressing Ability Total Assistance Areas Needing Assistance Socks Comments OT Dressing Comments Total assist at this time for LB dressing assist and will be MAX a for UB dressing needs due to not able to use LUE to assist for needs at this time for gross grasp and needing assist from her right hand to move her left arm at this time. OT ADL-Toileting Comments OT Toileting Comments Pt not having to go at this time. OT ADL-Bathing Comments OT Bathing Comments NOt performed, sponge bathing more appropriate due to her decreased static sitting balance at this time. M5 OT- IP IADL's Start: 12/16/20 11:03 Freq: Status: Active Protocol: Document 12/16/20 11:03 [facility] (Rec: 12/16/20 11:46 [facility] [id number]) OT-Instrumental Activities of Daily Living Deficits IADL Deficits Identified Deficits Home Safety Awareness Awareness of Need for Assistance at Home Good Awareness Ability to Problem Solve Emergency Able to Problem Solve Situations Medication Management Medication Management Comments Due to her decreased use of left arm, pt would require assist for set-up. Meal Preparation Meal Preparation Caregiver Provides Assist Meal Preparation Comments At this time due to decreased mobility and functional use of left side of her body will need assist for all IADL needs at this time. Intellectual Property Legal Assistant Intellectual Property Legal Assistant Caregiver Provides Assist Intellectual Property Legal Assistant Comments At this time due to decreased mobility and functional use of left side of her body will need assist for all IADL needs at this time. M6 OT- IP Functional Cognition Start: 12/16/20 11:03 Freq: Status: Active Protocol: Document 12/16/20 11:03 [facility] (Rec: 12/16/20 11:46 [facility] [id number]) Cognitive Factors Limiting Selfcare Function Cognitive Ability Level of Alertness Alert Patient Orientation Name,Age,Birthday,Month,Date, Year,Day of Week,Place, Situation Attention Span Ability Capable of Focused Attention, Capable of Sustained Attention Ability to Follow Commands Able to Follow Multi-Step Commands Memory Description Short Term Impaired,Working Impaired Executive Function Ability Unable to Organize Plans Cognitive Tests SLUMS Pt scored 28/30 which implies normal. Pt able to recall 4/5 objects after time passed and not able to recall 4 digit number backwards. Pt however does admit to having more trouble thinking and having more difficulty with her short term memory. Cognitive Comments Cognitive Assessment Comments Pt scored 167 on [place] Making Part B which implies severe impairments for visual attention, task switching, speed of processing, mental flexibility, and executive functioning. An average score for pt's age is 75 seconds, which is the 50% for her age group. OT- Vision and Hearing OT- Hearing Assessment OT- Hearing Assessment WFL OT- Vision Assessment Visual Acuity Glasses For Reading Visual Attentiveness WFL Occular Pursuits WFL Visual Convergence WFL Visual Hayes WFL Vision Assessment Comments Left eye droop down a little that may affect her vision. M7 OT- IP Mobility and Balance Start: 12/16/20 11:03 Freq: Status: Active Protocol: Document 12/16/20 11:03 [facility] (Rec: 12/16/20 11:46 [facility] [id number]) OT- Bed Mobility Assessment Rolling Type of Rolling Roll to Left Level of Assistance Minimal Assistance Supine to Sit Supine to Sit Assist Maximum Assistance,1 Person Assistance Sit to Supine Sit to Supine Assist Maximum Assistance,1 Person Assistance Scooting Scooting to Edge of Bed Maximum Assistance,1 Person Assistance Scooting Up and Down in Bed Maximum Assistance,1 Person Assistance OT-Transfer Assessment Sit to and From Stand Sit to and from Stand Maximum Assistance,1 Person Assistance Devices Transfer Assistive Devices Gait Belt Comments Mobility Comments Pt able to move her left LE to the edge of the bed with increased time and needing MAX A to help move her LUE to be able to assist her and assist to help get up from side lying to seated position. Sit to stand , assist to block her left knee to stand and MAX A x1. Pt needing support at her LLE to help her to scoot back in the bed. OT- Gait Assessment Comments Gait Ability Comments Not at this time. OT- Balance Assessment Sitting Balance and Reactions Static Sitting Balance Ability Fair Dynamic Sitting Balance Ability Poor Standing Balance and Reactions Static Standing Balance Ability Poor Comments Other Balance Tests/Deviations/Treatment Pt tends to lean into lateral : tilt to the left, but pt is aware not at midline. Pt is very short, therefore unable to have her feet on the floor to assist with her balance. M8 OT- IP Objective Assessments Start: 12/16/20 11:03 Freq: Status: Active Protocol: Document 12/16/20 11:03 [facility] (Rec: 12/16/20 11:46 [facility] [id number]) OT Gross Range of Motion Upper Extremity Range of Motion ROM Impairments PROM WFL for BUE. AROM 0-110 for RUE due to hx of rotator cuff issues. OT Strength Upper Extremity Strength Assessment Left Impaired Hand Power Plant Inspector Strength Hand Dominance Right Comments Strength Comments LUE 2-/5 at shoulder, elbow 2+ /5 , and wrist and fingers 2-/ 5 OT- Coordination Assessment Upper Extremity Finger to Nose Test Left UE Impaired Finger Tapping Test Left UE Impaired OT-Muscle Tone Assessment Muscle Tone WNL No Comments Muscle Tone Comments Increased tome in left UE. OT Sensation Assessment Location Left Upper Extremity Light Touch Intact/Normal M9 OT- IP Assessment and Plan Start: 12/16/20 11:03 Freq: Status: Active Protocol: Document 12/16/20 11:03 [facility] (Rec: 12/16/20 11:46 [facility] [id number]) OT Summary Assessment and Plan Potential Rehabilitation Potential Excellent Analytic Complexity at Evaluation Moderate Summary OT Impairments Range of Motion,Strength, Balance,Coordination,Tone, Functional Cognition, Functional Mobility,Self- Feeding,Grooming,Dressing, Toileting,Bathing,Toilet Transfers,Shower Transfers, Activity Tolerance Progress Towards Goals Progressing Toward Goals,Slow Progress due to Activity Tolerance Assessment Summary Pt MOD complexity and here due to 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 Pt's main barriers are steps, decreased functional use of LUE and LLE, decreased static and dynamic sitting and standing balance, and now needing extensive 1-2 person assist for all needs. Pt is highly motivated and wanting to go to acute rehab prior to going home. Pt is aware that her current level is too great for her family to be able to assist her at home . Goals Self-Feeding Goal Independent Grooming Goal Independent Dressing Goal Independent Toileting Goal Independent Bathing Goal Independent Toilet Transfer Goal Independent Shower Transfer Goal Independent OT-Other Goals All goals with incorporating and functional use of LUE/ LUE for needs. Days to Meet Goals 30 Frequency of Treatment Frequency Of Treatment Once a Day Treatment Plan Other Treatment Recommendations and Next Pt just admitted today in AM, Treatment Focus a bit overwhelmed at this time , tired, and therefore to increased OT visits tomorrow to twice a day. Discharge Recommendations OT Discharge Recommendations Acute Rehab Home Equipment Needs Defer to Acute Rehab Transportation Needs at Discharge Private Vehicle,Wheelchair/ Cabulance
--- NOTE | 2020-12-16 13:36 | CM.DPNOTE ---
Addendum entered by Jess Davenport 12/16/20 14:57: Also faxed MRI. Jess Davenport CM Asst. Original Note: Faxed Referral packet to [facility] Attn: Frances Verdin. Received fax confirmation. Jess Davenport CM Asst.
--- NOTE | 2020-12-16 14:56 | PT.IIE ---
Surgical History (Last Reviewed 12/16/20 @ 07:36 by AMRIT Dill) Status post delivery (~1983) Status post delivery (~1985) Status post delivery (~1987) Status post cholecystectomy (~2013) Medical History (Last Reviewed 12/16/20 @ 07:36 by AMRIT Dill) Diabetes mellitus Essential hypertension History of ventricular tachycardia Hyperlipidemia Physical Therapy Inpatient Evaluation/Re-Eval M1 PT/OT-IP Prior Functional Status Start: 12/16/20 11:03 Freq: NEEDED Status: Active Protocol: Document 12/16/20 14:56 [facility] (Rec: 12/16/20 16:01 [facility] [id number]) Medical Review Prior Functional Status Medical History Reviewed Yes Diet/Fluid Consistency Regular Communication Independent Mobility and Gait Prior pt was completely independent and did not use a device for mobility needs. 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 Prior Functional Level (Other details) Her still works, she takes care of 14 year old Son Social History Household Members significant other,children Living Arrangements House Number of Floors (Floors) Two Floors Number of Stairs To Enter/Railing? NO steps to get into the house and 15 steps with left hand rail going to the second floor . Has spare bedrooms on first floor but her main bedroom is on second floor Home Environment Standard Height Toilet,Walk in Shower Home Equipment Shower Seat without Backrest Additional Social History Comment Pt had a fall and concerned of CVA and came into the ER. Pt states since she has had COVID in 07/18 and she reports feeling foggy after being sick. 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 M2 PT-IP Current Condition Start: 12/16/20 15:47 Freq: NEEDED Status: Active Protocol: Document 12/16/20 14:56 [facility] (Rec: 12/16/20 16:01 [facility] [id number]) Physical Therapy Current Condition Current Condition Evaluation Date 12/16/20 Treatment Diagnosis CVA with left hemiplegia Onset Date 12/16/20 Precautions Other Precautions high fall risk M3 PT-IP Subjective Start: 12/16/20 15:47 Freq: NEEDED Status: Active Protocol: Document 12/16/20 14:56 [facility] (Rec: 12/16/20 16:01 [facility] [id number]) Subjective Physical Therapy Visit Type Type Initial Evaluation Visit Start Time 14:15 Visit Stop Time 14:56 Total Visit Minutes 42 Physical Therapy Visit Comments Patient Comments she is worried about her left side getting better Patient Goals get better and return home Therapy Pain Assessment Pain When Pain Assessed During Mobility Pain Present Pain Present Denied Pain M4 PT-IP Mobility and Gait Start: 12/16/20 15:47 Freq: NEEDED Status: Active Protocol: Document 12/16/20 14:56 [facility] (Rec: 12/16/20 16:01 [facility] [id number]) PT-Bed Mobility Assessment Rolling Type of Rolling Bilateral Level of Assist Minimal Assistance Supine to Sit Supine to Sit Moderate Assistance Sit to Supine Sit to Supine Minimal Assistance,Moderate Assistance Scooting Scooting to Edge of Bed Minimal Assistance,Moderate Assistance PT-Transfer Assessment Sit to and From Stand Sit to and from Stand Minimal Assistance Equipment Transfer Assistive Device Gait Belt Transfers Transfer Destination Bedside Commode Transfer Technique Stand Pivot Transfer Ability Level of Assist Moderate Assistance Comments Mobility Comments decreased balance and left LE weakness impairs her ability to use left LE in standing, left knee kiran with attempts to put weight on it Gait Assessment Comments Gait Comments not safe for gait yet due to left knee buckling with weight bearing PT-Balance Assessment Sitting Balance and Reactions Static Sitting Balance Ability Fair Dynamic Sitting Balance Ability Poor Standing Balance and Reactions Static Standing Balance Ability Poor Dynamic Standing Balance Ability Poor Comments Other Balance Tests/Deviations/Treatment seated she losses her balance : to left and needs help to correct, the bed is tall and her feet are not on the floor M5 PT-IP Objective Assessments Start: 12/16/20 15:47 Freq: NEEDED Status: Active Protocol: Document 12/16/20 14:56 [facility] (Rec: 12/16/20 16:01 [facility] [id number]) Orientation Orientation/Cognition Level of Alertness Alert Orientation Name,Age,Birthday,Month,Date, Year,Day of Week,Place, Situation Safety Awareness Understands Safety Issues Memory Description No Deficits Noted Comments left facial droop, slower mental processing, pt becomes tearful when talking about her deficits Gross Range of Motion Upper Extremity ROM Assessment Within Functional Limits Lower Extremity ROM Assessment Within Functional Limits Impairments mild tightness left ankle with DF to neutral Strength Upper Extremity Strength Assessment Left Impaired Shoulder 2+/5 Elbow 3-/5 Wrist 3+/5 Hand weak health worker functionally but moving hand actively, slow pace Lower Extremity Strength Assessment Left Impaired Hip flexion 2+/5 Knee knee ext 1/5 Ankle 0/5 Comments Strength Comments see OT notes for details on left UE weakness Coordination Assessment Gross Coordination Gross Coordination Impaired Assessment Coordination Comments left UE impaired in association with weakness Sensation Assessment Sensation Gross Sensation Left UE Impaired Sensation Description Tingling Muscle Tone Muscle Tone WNL No Comments Muscle Tone Comments mild increased extensor tone left ankle M6 PT-IP Treatment Start: 12/16/20 15:47 Freq: NEEDED Status: Active Protocol: Document 12/16/20 14:56 [facility] (Rec: 12/16/20 16:01 [facility] [id number]) Physical Therapy Treatment Education Education Provided Safety Other Treatments Other Treatment Performed educated pt on risk of falls and injury s/p stroke M7 PT-IP Assessment and Plan Start: 12/16/20 15:47 Freq: NEEDED Status: Active Protocol: Document 12/16/20 14:56 [facility] (Rec: 12/16/20 16:01 [facility] [id number]) PT Summary Assessment and Plan Potential Rehabilitation Potential Excellent Status of Condition at Evaluation Evolving Summary Impairments Strength,Balance,Coordination, Sensation,Tone,Cognition,Bed Mobility,Transfers,Gait, Activity Tolerance Goals Bed Mobility Goal Contact Guard Assistance, Minimal Assistance Transfer Goal Minimal Assistance Gait Goal Moderate Assistance,Venkata Walker Gait Distance 10 feet Days to Meet Goals 5 Frequency of Treatment Frequency Of Treatment Twice a Day Treatment Plan Physical Therapy Treatment Plan Bed Mobility Training,Transfer Training,Gait Training, Therapeutic Exercise,Balance Retraining,Discharge Planning, Neuromuscular Re-ed, Coordination Retraining Recommendations To Nursing Amount of Assist Needed 1 Person Assist Discharge Recommendations PT Discharge Recommendations Acute Rehab Other Discharge Recommendations she is an excellent candidate for acute rehab Equipment Needed for Home Before defer to rehab Discharge Transportation Needs at Discharge Private Vehicle,Wheelchair/ Cabulance
--- NOTE | 2020-12-16 15:08 | ST.IPIE ---
Visit Care Team Role Provider Type Xiomara Diego DO Primary Care Provider Physician Specialty: Family Practice Address: [address] [place] [address], [address], [place], [address] Email: [email or web address] Jake Berger DO Emergency Provider Physician Referring Provider Specialty: Emergency Medicine Address: [address] [place] [address], [id number] Email: [email or web address] Amber Eckert [facility] Admit Provider Physician Attending Provider Specialty: Medical Address: [address] [place] [address], [id number] Email: Past Medical History (Last Reviewed 12/16/20 @ 07:36 by Amber Eckert [facility]) Diabetes mellitus (Medical) Essential hypertension (Medical) History of ventricular tachycardia (Medical) Hyperlipidemia (Medical) ST IP Initial Evaluation Report PATROL MOTHER Clinical Swallow Evaluation Start: 12/16/20 09:49 Freq: Status: Active Protocol: Document 12/16/20 09:50 LNK (Rec: 12/16/20 10:19 LNK [id number]) Clinical Swallow Evaluation Session Time Visit Start Time 09:00 Visit Stop Time 09:20 Total Visit Minutes 20 Setting Assessment Location Acute Care Visit Type Note Type Initial evaluation Patient Information Identification Type Name,Wristband History PER H&P: Patient is a 65-year -old female Justinaoni Negro nonsmoker with history of hypertension, diabetes presents with stroke-like symptoms or 1st noted just prior to her arrival. Her last known normal was 2100 when she went to bed. She woke up just prior to arrival to urinate and she fell and then called 911 due to concern for stroke. She is activated as code stroke and taken directly to CT. She does fall outside at the window for tPA but has a positive LAMS and is therefore possible Code IR. She states she has been in her normal state of health and denies any recent neurologic abnormalities. She has had no recent trauma and takes no blood thinners. She has numbness and tingling as well as weakness on the left side of her face and near complete weakness of left upper and lower extremity with associated numbness and tingling. Subjective Observations Pt had just returned from MRI. Pt seated upright in bed. Reported by Patient Current Diet Regular,Thin liquids Baseline Feeding Method Independent in self-feeding Objective Assessment Mental Status Alert,Responsive,Cooperative Observation of Lips at Rest Left sided weakness/Drooping Pucker Reduced strength,Left sided weakness/drooping Lip Retraction Reduced range of motion,Left sided weakness/Drooping Alternating Pucker/Lip Retraction Reduced range of motion Tongue Function Mild impairment Observations of Tongue at Rest Within normal limits Tongue Protrusion Reduced range of motion Tongue Retraction Within normal limits Tongue Lateralization Within normal limits Observations of Hard/Soft Palate Reduced strength/ROM of soft palate elevation Phonation Within normal limits Respiratory Sufficiency Within normal limits Food and Liquid Trials Position During Assessment Slightly reclined Liquids Trialed Ice chips,Thin Solids Trialed Dysphagia Advanced,Regular Administration Type Tea spoon,Cup single sip, Controlled cup sip,Cup consecutive sips,Straw Oral Impairment Mildly impaired Oral Phase Comments Pt reported that she is able to handle her secretions. She demonstrated a spontaneous tongue sweep to the left side following cracker trial. Left side facial droop. Slight reduction in velar eevation left side. Diadochokiesis was slow with reduced range of motion, speed and strength. Pharyngeal Impairment Within functional limits Pharyngeal Phase Comments Hyolaryngeal elevation appeared to be WFL per palpation. Pt safely tolerated thin liquids via spoon, controlled sip and with straw. No wet voice observed, no cough/choke observed. Pt appeared to be swallowing with some effort to initiate swallow response. 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 Pt is aware of deficits and importance of follow through with exercise program. Impact on Safety and Functioning No limitations Recommendations Instrumental Assessment No Swallowing Treatment Yes Frequency daily while inpatient Recommended Solids Regular Recommended Liquids Thin Other Recommendations Medications as tolerated Safety Precautions/Swallowing Remain upright (90 degrees) Recommendations during all oral intake Medication Recommendations As Tolerated,Whole Discharge Recommendations Inpatient rehab facility Education Patient/Caregiver Education Described results of evaluation,Patient expressed understanding of evaluation, Patient expressed agreement with goals & treatment plans, Family/caregivers expressed understanding of evaluation Goals Long-term Goals Pt will safely tolerate least restrictive diet without s/sx aspiration to meet hydration and nutrfritional needs. PATROL MOTHER Motor Speech Evaluation Start: 12/16/20 09:49 Freq: Status: Active Protocol: Document 12/16/20 09:50 LINDA (Rec: 12/16/20 10:19 LINDA [id number]) Motor Speech Evaluation Session Time Visit Start Time 09:20 Visit Stop Time 09:35 Total Visit Minutes 15 Setting Setting Acute Care Next Note Type Next Note Type Treatment Note Patient History Source: [place] [employer] (ANDREW). Patient History PER H&P: Patient is a 65-year -old female Driss Tom nonsmoker with history of hypertension, diabetes presents with stroke-like symptoms or 1st noted just prior to her arrival. Her last known normal was 2100 when she went to bed. She woke up just prior to arrival to urinate and she fell and then called 911 due to concern for stroke. She is activated as code stroke and taken directly to CT. She does fall outside at the window for tPA but has a positive LAMS and is therefore possible Code IR. She states she has been in her normal state of health and denies any recent neurologic abnormalities. She has had no recent trauma and takes no blood thinners. She has numbness and tingling as well as weakness on the left side of her face and near complete weakness of left upper and lower extremity with associated numbness and tingling. Mental Status Mental Status Alert,Responsive,Cooperative Subjective Observations Subjective Pt had just returned from MRI. Pt seated upright in bed. Oral Motor Lips Function Mild Impairment Observation at rest facial droop lef Pucker able to puck and hold air in cheeks Retraction left side decreased ROM Alternating pucker/retraction left side decreased ROM Tongue Function Mild Impairment Protrusion decreased ROM/strength Lateralization WFL Soft Palate Function WFL Symmetry Slight assymetry left side Sustained Elevation WFL Respiration/Phonation Tools Observations WFL Phonation Quality Breathy Other limited intonation Loudness WFL Conversation Quality WNL Loudness WFL Diadochokinetic Rates P^T^K^ Duration per 3 sec. slow Quality Mild Impairment Comments basketball, judaism repeated x3 rapidly stimuli Speech Intelligibility Awareness/Strategy Use Description Type of awareness/use Uses consistently Findings Details Motor Speech Function Mild Impairment Assessment Details Assessment Pt presented with mild dysarthria secondary to left OM weakness, reduced strength and speed of movement. Speech is intelligible, but pt reports my speech is different. Pt is able to compensate for weakness and reduced strength. Recommendations Treatment Recommended Yes Frequency daily while inpatient Short Term Goals Pt will be educated in and will perform OM exercises as prescribed by ST a minimum of 3-4 times /day. Patient/Family Education Education Described results of evaluation,Patient Understanding,Family Understanding
--- NOTE | 2020-12-16 15:55 | CM.DANOTE ---
DCP/Assessment: Reviewed chart. Patient is a 65yr old female admitted [facility] with [facility]. PCP is Dr. Diego. Primary payor is 1)[facility] 2)[employer]. Patient seen by therapy today, current recommendation is Acute Inpatient Rehabilitation. Patient primarily I prior to admit. Patient hospitalized at the beginning of the year with COVID. Met briefly with patient this afternoon. Patient with left sided deficit, working with therapy at time of FIRE HAZARD INSPECTOR visit. Patient emotional about her current status. Patient aware and agreeable to acute inpatient rehabilitation. Patient would like to stay nearby if possible. FIRE HAZARD INSPECTOR placed call to Frances Song ph# [phone] at [facility]. Frances reports that they do have bed and will evaluate for inpatient rehabilitation. ZARINA/Jess faxed clinical allie facility for review. P: Pending. [facility] evaluating for admit. YEVGENIY Meneses Discharge Planning/Care Management CM Discharge Assessment Start: 12/16/20 15:50 Freq: Status: Active Protocol: Document 12/16/20 15:50 KJS (Rec: 12/16/20 15:55 KJS [id number]) Discharge Planning Assessment Assigned Seat Cover Maker YEVGENIY Meneses Contact Information Cr Tom (spouse) ph# Advance Directives? No History Provided By Patient,Medical Record Prior Living Arrangements House Household Members significant other Type of transporation used prior to Drives own vehicle admit Independent with ADL's Yes Is patient alert and oriented? Yes Caregiver for Another No Barriers to Discharge No Comment Current recommendation is Acute Rehabilitation. [facility] currently evaluating and attempting authorization from payor. Discharge Plan Inpatient Rehab Unit Transportation Arrangement Family to provide transport. Referrals Initiated Other Additional Comment Inpatient acute rehabilitation . Whiteboard Updated in Patient Room with Yes name and ext. # of Seat Cover Maker Review Status In Process Next Review Type Continued Stay Review
[2020-12-16] MEDS: ATORVASTATIN 20 MG TABLET 80 MG PO (21:00)
[2020-12-16] MEDS: INSULIN GLARGINE 100 UNIT/ML 3ML PEN 30 UNIT SUBCUT (21:05)
[2020-12-17 00:24] VITALS: BP 126/84; PULSE 81; RESP 14; TEMP 36.8; O2SAT 95
[2020-12-17 04:00] VITALS: BP 150/91; PULSE 87; RESP 18; TEMP 36.3; O2SAT 96
[2020-12-17 06:02] LABS: Add Manual Diff / Slide Review NO; Basophils Absolute Auto 100 /uL (0-100); Basophils Percent Auto 1.1 % (0-2); Eosinophils Absolute Auto 200 /uL (0-450); Eosinophils Percent Auto 2.6 % (2-4); Hematocrit 38.5 % (36-46); Hemoglobin 13.5 g/dL (12.0-16.0); Lymphocytes Absolute Auto 2700 /uL (1100-4500); Lymphocytes Percent Auto 37.5 % (25-40); Mean Corpuscular HGB Conc 35.1 % (30-36); Mean Corpuscular Hemoglobin 29.2 PG (26-34); Mean Corpuscular Volume 83.1 fL (80-100); Monocytes Absolute Auto 400 /uL (0-900); Monocytes Percent Auto 5.6 % (3-14); Neutrophils Absolute Auto 3800 /uL (1500-7000); Neutrophils Percent Auto 53.2 % (50-75); Platelet Count 253 X10^3/uL (150-400); Red Blood Cell Count 4.63 X10^6/uL (4.0-5.2); Red Cell Distribution Width 13.9 % (11.6-14.8); White Blood Cell Count 7.2 X10^3/uL (4.5-11.0)
[2020-12-17 06:09] LABS: Prothrombin Time 11.1 SECONDS (10.1-12.7)
[2020-12-17 06:19] LABS: Creatine Kinase 96 U/L (30-135); Magnesium 1.7 mg/dL (1.6-2.3)
[2020-12-17 06:20] LABS: Alanine Aminotransferase 21 IU/L (<35); Albumin 3.8 g/dL (3.5-5.0); Albumin Globulin Ratio 1.5 (1.0-2.8); Alkaline Phosphatase 47 U/L (38-126); Aspartate Aminotransferase 41 IU/L (14-36); Bilirubin Total 0.4 mg/dL (0.2-1.3); Blood Urea Nitrogen 8 mg/dL (7-17); Carbon Dioxide 23 mmol/L (22-32); Chloride 109 mmol/L (98-107); Estimated Glomerular Filt Rate > 60.0 mL/min (>60); Globulin 2.6 g/dL (1.7-4.1); Glucose 133 mg/dL (80-110); HEMOLYSIS < 15 (0-50); Potassium 3.8 mmol/L (3.4-5.1); Sodium 139 mmol/L (137-145); Total Protein 6.4 g/dL (6.3-8.2)
[2020-12-17 06:31] LABS: Troponin I < 0.012 ng/mL (0.01-0.034)
--- NOTE | 2020-12-17 08:38 | CM.DPNOTE ---
Addendum entered by Jess Davenport 12/17/20 11:25: Also faxed DC Summary per Ana Luisa on 12/17/20. Fax confirmation received. Jess Davenport CM Asst. Original Note: Faxed referral packet to [facility] [phone] per Ana Luisa on 12/17/20. Received fax confirmation. Jess Davenport CM Asst.
[2020-12-17 08:45] VITALS: BP 128/77; PULSE 76; RESP 16; TEMP 36.5; O2SAT 96
--- NOTE | 2020-12-17 09:23 | OT.IP.TRT ---
Current Diagnoses Cerebral infarction, unspecified (12/16/20) Occupational Therapy Treatment Note M2 OT-IP Current Condition Start: 12/16/20 11:03 Freq: Status: Active Protocol: Document 12/16/20 11:03 [facility] (Rec: 12/16/20 11:46 [facility] [id number]) Occupational Therapy Current Condition Current Condition Evaluation Date 12/16/20 Treatment Diagnosis R CVA Diagnosis Onset Date 12/16/20 M3 OT- IP Subjective and Pain Start: 12/16/20 11:03 Freq: Status: Active Protocol: Document 12/17/20 10:06 [facility] (Rec: 12/17/20 10:17 [facility] [id number]) OT- Subjective Occupational Therapy Visit Type Type Treatment Note Visit Start Time 08:30 Visit Stop Time 09:23 Total Visit Minutes 53 Occupational Therapy Visit Comments Patient Comments Pt agreed to work with OT. LINUX ARCHITECT came in at the end of the session while pt was resting to talk to pt regarding oral motor exercises. Patient/Caregiver Goals Pt wanting to go to acute rehab in [facility] OT Pain Assessment Pain When Pain Assessed At Rest Pain Present Pain Present Denied Pain OT ADL-Toileting Comments OT Toileting Comments Pt not having to go at this time. OT- Vision and Hearing OT- Hearing Assessment OT- Hearing Assessment WFL OT- Vision Assessment Visual Acuity Glasses For Reading Visual Attentiveness WFL Occular Pursuits WFL Visual Convergence WFL Visual Hayes WFL Vision Assessment Comments Left eye droop down a little that may affect her vision. M7 OT- IP Mobility and Balance Start: 12/16/20 11:03 Freq: Status: Active Protocol: Document 12/17/20 10:06 [facility] (Rec: 12/17/20 10:17 [facility] [id number]) OT-Transfer Assessment Comments Mobility Comments Pt already sitting in the recliner when therapist present. OT- Gait Assessment Comments Gait Ability Comments Did not walk at this time. OT- Balance Assessment Sitting Balance and Reactions Static Sitting Balance Ability Fair Dynamic Sitting Balance Ability Poor Comments Other Balance Tests/Deviations/Treatment Today able to support her feet : with a cushion and noted better static sitting balance fair+. Pt has more awareness of midline and how to get herself back to midline. Noted less leaning to the left of lateral tilt to the left. Had pt practice coming to sit to anterior pelvic tilt while seated in the recliner. Pt states last night was unaware that her left arm at times got pinned underneath her. Educated pt on neglect and the importance to keep track of her left arm and leg for positioning needs. M9 OT- IP Assessment and Plan Start: 12/16/20 11:03 Freq: Status: Active Protocol: Document 12/17/20 10:06 [facility] (Rec: 12/17/20 10:17 [facility] [id number]) OT Summary Assessment and Plan Potential Rehabilitation Potential Excellent Analytic Complexity at Evaluation Moderate Summary OT Impairments Range of Motion,Strength, Balance,Coordination,Tone, Functional Cognition, Functional Mobility,Self- Feeding,Grooming,Dressing, Toileting,Bathing,Toilet Transfers,Shower Transfers, Activity Tolerance Progress Towards Goals Progressing Toward Goals Assessment Summary Able to educate pt in depth regarding trying to coordinate her muscle movement for her left side of her body. Pt having a hard time trying to recruit the adequate muscles for movements for her left arm and tends to elevated and internally rotate her left arm when trying to move her left arm. Able to work on trigger point massage,gentle stretching on her neck and left shoulder to be able to get her left shoulder in a more neutral position and now able to turn her head to the left better after OT session. Also educated pt on the importance on extension versus flexion for movements as pt noticing that is in harder to open her left hand today. Pt is very motivated to get better and wanting to go to acute rehab when medically stable. Goals Self-Feeding Goal Independent Grooming Goal Independent Dressing Goal Independent Toileting Goal Independent Bathing Goal Independent Toilet Transfer Goal Independent Shower Transfer Goal Independent OT-Other Goals All goals with incorporating and functional use of LUE/ LUE for needs. Days to Meet Goals 30 Frequency of Treatment Frequency Of Treatment Twice a Day Discharge Recommendations OT Discharge Recommendations Acute Rehab Home Equipment Needs Defer to Acute Rehab Transportation Needs at Discharge Private Vehicle
--- NOTE | 2020-12-17 09:25 | ST.IPTN ---
Visit Care Team Role Provider Type Xiomara Diego DO Primary Care Provider Physician Address: [address] [place] [address], [address], [place], [address] Jake Berger DO Emergency Provider Physician Referring Provider Address: [address] [place] [address], [address] Amber Eckert [facility]- Admit Provider Physician Attending Provider Address: [address] [place] [address], [address] SHADE BANDER Treatment Note SHADE BANDER Treatment Note Start: 12/16/20 09:49 Freq: Status: Active Protocol: Document 12/17/20 12:08 CRISTINE (Rec: 12/17/20 12:17 CRISTINE [id number]) Speech Pathology Treatment Note Session Time Visit Start Time 09:10 Visit Stop Time 09:25 Total Visit Minutes 15 Setting Treatment Setting Acute Care Visit Type Note Type Treatment Note Next Note Type Next Note Type Treatment Note General Information General Information Per MD Report: Ms. Tom is a 65 year old woman with past medical history of diabetes and hypertension who presented to the emergency room with left sided weakness. She was a code stroke protocol. She was determined to have her last known well at 9pm when she went to bed and was seen in the ED at approximately 3:22am . She was determined to be outside the window for TPA. She had a head CT done that did not show any acute bleed. CTA showed no vascular abnormality with good flow in the carotids, anterior, and posterior circulation. As such she was not transferred as there was no indication for IR intervention. She then had MRI of the brain which showed a 7mm and 3mm focus of of diffusion restriction in the right thalamus and posterior limb of the internal capsule consistent with acute ischemia . Subjective Identification Type Name,ID Card Others Present Additional Therapist Observations/Patient Presentation The pt was sitting up in chair working with OT, who allowed time for SHADE BANDER to provide therapy. Pt had eaten a small amount of breakfast without difficulty, as reported by both the pt and OT who had been present during the meal. The pt stated that others report her speech is improved, but she was not sure herself. Chief Complaint(s) Speech Patient Knowledge/Awareness of SHADE BANDER Role Excellent in Treatment Objective Short Term Goals 1. Pt will independently follow safe swallow strategies to reduce risk of aspiration. 2. Pt will be educated in and will perform OM exercises as prescribed by ST a minimum of 3-4 times /day. Penitentiary Goals 1. Pt will safely tolerate least restrictive diet without s/sx aspiration to meet hydration and nutrfritional needs. 2. Pt will produce speech intelligibility sufficient to express her wants and needs and to participate in conversations related to her health. Treatment Activities Education and training was provided in strategies and exercises to improve speech articulation and expressive communication with others. The pt's speech was 100% intelligible to this therapist . Mild left side facial droop and weakness was observed, and the pt reported feeling that her oral structures were heavy and uncoordinated. The pt verbalized understanding of education and oral motor exercises, instructions of which were provided orally with demonstration and in writing for home practice. The pt performed oral motor exercises, demonstrating understanding and ability to perform as instructed. Assessment Patient Response to Treatment Good Rehab Potential Excellent Impairments Identified Dysarthria,Dysphagia Progress Towards Goals Good Progress Assessment of Overall Progress Improving Assessment of Improvement The pt is tolerating current diet without complaint or overt s/sx of aspiration. Appears to have little appetite, at least for this morning's breakfast. Her speech was 100% intelligible with mild symptoms of dysarthria, including mildly reduced rate of speech and increased effort required for articulation, secondary to left side weakness. She demonstrated good understanding of information provided and ability to perform tasks. She is an excellent candidate for inpatient rehab, given the severity of deficits, age, cognitive status and motivation to improve. Reviewed with Patient Goals,Progress Being Made,Home Exercise Program Patient/Caregiver Understanding Excellent Plan Comment Continue therapy over hospital stay. Recommend inpatient rehab at d/c Therapeutic Contents Articulation Training,Client Education,Home Exercise Program,Intelligibility,Oral Motor Training,Parent Education Training,Swallowing/ Feeding Provided Patient/Caregiver Instruction Home Exercise Program,Plan of Care,Questions/Concerns Therapy Recommendations Continue with Current Program
[2020-12-17] MEDS: lisinopriL 5 MG TABLET 10 MG PO (10:39)
[2020-12-17] MEDS: ASPIRIN EC 81 MG TABLET PO (10:39)
[2020-12-17] MEDS: METOPROLOL ER 25 MG TABLET PO (10:39)
[2020-12-17] MEDS: CLOPIDOGREL 75 MG TABLET PO (10:40)
--- NOTE | 2020-12-17 10:44 | P.DS_ITS ---
History of Present Illness History of Present Illness Chief complaint: Code stroke Narrative: Per H and P from Amber Eckert 12/16/20: Patient is a 65-year-old female Justinaoni Negro nonsmoker with history of hype rtension, diabetes presents with stroke-like symptoms or 1st noted just prior to her arrival. Her last known normal was 2100 when she went to bed. She woke up just prior to arrival to urinate and she fell and then called 911 due to concern for stroke. She is activated as code stroke and taken directly to CT. She does fall outside at the window for tPA but has a positive LAMS and is therefore p ossible Code IR. She states she has been in her normal state of health and denies any recent neurologic abnormalities. She has had no recent trauma and takes no blood thinners. She has numbness and tingling as well as weakness on the left side of her face and near complete weakness of left upper and lower extremity with associated numbness and tingling. Patient complains of a mild headache, no changes in vision, chest pain, shortness of breath, abdominal pain, nausea, vomiting. Denies recent illness injury or trauma. Patient denies any previous symptoms like this prior. Patient's vitals upon admission temp 98.8?, BP 171/90, HR 91, RR 18, O2 saturation 90% on room air. All patient's labs were within normal limits with the exception of a glucose of 127. Head CT:No acute intracranial abnormality. EKG: is normal sinus rhythm rate 91 and free of any signs of ischemia or ectopy. No ST segmental elevation or depression. No T wave inversions. Patient is being admitted for left-sided weakness neurological deficit rule out stroke, with an NIHSS score of 9. ED Consults Per Dr. Berger: Reevaluation #1: 0410 - called into room and patient and tell me that she states she felt completely normal at 0230 and her arm and leg became week at 0300. This changes the trajectory and now she would fit in the window for TPA. 0430 - Patient now states that she isn't so certain about how she felt at 0230. We have involved the TeleStroke Provider and this commentary evolved during the discussion. We will stand down on TPA.Consultation #1: 0350 call to TeleStroke for help with CTA 0355 - call to [facility] for weather check 0355 - Call to [facility] to discuss possible. It was determined by tele stroke that patient was not a candidate for any further interventions outside facility. Discharge Providers Provider Date of admission: 12/16/20 05:17 Discharge Date: 12/17/20 Primary care physician: Xiomara Diego DO Consults: 12/16/20 04:59 Consult to Discharge Planning Routine Comment: Consult to Occupational Therapy Evaluate & Treat Comment: Physician Instructions: Evaluate and treat Consult to Physical Therapy Evaluate & Treat Comment: Physician Instructions: Evaluate and Treat Consult to Speech Therapy Evaluate & Treat Comment: Physician Instructions: Evaluate and treat Discharge provider: Juan Amado MD Summary Hospital Course Discharge Diagnosis: 1. 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 Essential Hypertension 4. Type 2 Diabetes, insuline dependent 5. History of Ventricular tachycardia 6. Hyperlipidemia Hospital Course: Ms. Tom is a 65 year old woman with past medical history of diabetes and hypertension who presented to the emergency room with left sided weakness. She was a code stroke protocol. She was determined to have her last known well at 9pm when she went to bed and was seen in the ED at approximately 3:22am. She was determined to be outside the window for TPA. She had a head CT done that did not show any acute bleed. CTA showed no vascular abnormality with good flow in the carotids, anterior, and posterior circulation. As such she was not transferred as there was no indication for IR intervention. She then had MRI of the brain which showed a 7mm and 3mm focus of of diffusion restriction in the right thalamus and posterior limb of the internal capsule consistent with acute ischemia. MRI angiogram showed focal loss of flow in the P2 segment of the right GRANULATING MACHINE OPERATOR which was likely from stenosis from atherosclerosis. Distally the GRANULATING MACHINE OPERATOR was patent with normal flow. On result of the MRI, discussion was had again with te lestroke provider Dr. De La Rosa, who did not think this stenosis was consistent with acute clot and not amenable to IR intervention, and noted that there was compensatory flow distally and that this stenosis was likely not the etiology of her ischemic stroke. She was aspirin loaded and then continued on aspirin 81mg daily. She had not been on a statin due to previous having symptoms to unknown statin. She was started on atorvastatin 80mg daily. She was also started on plavix due to this breakthrough stroke. She should be on plavix in the acute setting for likely a minimum of 3 weeks, to possibly 3 months. At that point should have reevaluation of whether to stop plavix, or to switch aspirin to p lavix. She did have initial high blood pressure in the hospital with blood pressure in the 170s/90s. She was allowed to have permissive hypertension so as to reduce the risk of further ischemia. Prior to discharge she was restarted on lisinopril and metoprolol. She will need additional blood pressure management as an outpatient. Her A1c was 6.4. Her triglycerides were high at 235, ldl 106, cholesterol 185, hdl 32. She did well with speech and swallow therapy. She also had physical and occupational therapy who recommended further rehab. She was discharged to acute rehab for this reason. Code status: Full code Surrogate decision maker:Spouse Cr Discharge Time: 35 minutes Status at Discharge Cognitive/behavioral status at discharge: oriented Functional status at discharge: wheelchair bound Overall status at discharge: patient is not back to baseline Time Spent with Patient Time spent: Less than 30 minutes Exam Vital Signs (past 8 hours): - 12/17/20 04:00 12/17/20 08:45 Temperature 97.4 F L 97.7 F Pulse Rate 87 76 Respiratory Rate 18 16 Blood Pressure 150/91 H 128/77 Pulse Oximetry 96 96 Oxygen Delivery Method Room Air Oxygen Flow Rate 0 Narrative Exam Narrative: ENERAL: No acute distress currently HEAD: Atraumatic. Normocephalic. Left sided facial droop EYES: PERRL. Extraocular motions intact. No scleral icterus. HEENT: moist mucous membranes CARDIOVASCULAR: Regular rate and rhythm with no murmurs, gallops, or rubs. RESPIRATORY: Clear to auscultation bilaterally. No wheezes, rales, or rhonchi. GASTROINTESTINAL: Abdomen soft EXTREMITIES: No edema NEURO: Alert to person, place, and time. Cranial nerves noted she has 4/5 strength in lifting left shoulder. She has a left facial droop. Sensation is intact. Left arm noted for 2/5 strength at bicep and 2/5 strength at wrist and 3/5 strength on fingers on left side. Left leg noted for 2/5 strength in all muscle groups. Right leg with normal strength SKIN: No rash or erythema of visible areas PSYCH: currently she is understandably discouraged Objective Labs Result Diagrams: 12/17/20 05:47 12/17/20 05:47 Labs: Laboratory Results - last 24 hr 12/17/20 12/17/20 12/17/20 05:47 05:47 05:47 WBC 7.2 RBC 4.63 Hgb 13.5 Hct 38.5 MCV 83.1 MCH 29.2 MCHC 35.1 RDW 13.9 Plt Count 253 Neut % (Auto) 53.2 Lymph % (Auto) 37.5 Victoria % (Auto) 5.6 Eos % (Auto) 2.6 Baso % (Auto) 1.1 Neut # (Auto) 3800 Lymph # (Auto) 2700 Victoria # (Auto) 400 Eos # (Auto) 200 Baso # (Auto) 100 PT 11.1 INR 1.0 Sodium Potassium Chloride Carbon Dioxide BUN Creatinine Estimated GFR BUN/Creatinine Ratio Glucose Calcium Magnesium Total Bilirubin AST ALT Alkaline Phosphatase Total Creatine Kinase 96 CK-MB (CK-2) TNP CK-MB (CK-2) Rel Index TNP Troponin I < 0.012 Total Protein Albumin Globulin Albumin/Globulin Ratio 12/17/20 12/17/20 05:47 05:47 WBC RBC Hgb Hct MCV MCH MCHC RDW Plt Count Neut % (Auto) Lymph % (Auto) Victoria % (Auto) Eos % (Auto) Baso % (Auto) Neut # (Auto) Lymph # (Auto) Victoria # (Auto) Eos # (Auto) Baso # (Auto) PT INR Sodium 139 Potassium 3.8 Chloride 109 H Carbon Dioxide 23 BUN 8 Creatinine 0.50 L Estimated GFR > 60.0 BUN/Creatinine Ratio 16.0 Glucose 133 H Calcium 9.0 Magnesium 1.7 Total Bilirubin 0.4 AST 41 H ALT 21 Alkaline Phosphatase 47 Total Creatine Kinase CK-MB (CK-2) CK-MB (CK-2) Rel Index Troponin I Total Protein 6.4 Albumin 3.8 Globulin 2.6 Albumin/Globulin Ratio 1.5 [facility] Medical History Diabetes mellitus Essential hypertension History of ventricular tachycardia Hyperlipidemia Surgical History Status post delivery (~1983) Status post delivery (~1985) Status post delivery (~1987) Status post cholecystectomy (~2013) Family History Mother Hypertension Father Congestive heart failure Social History marital status: household members: significant other 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 Tom was admitted for left-sided weakness. She was found to have had a stroke in her thalamus. MRI also showed that she had atherosclerosis causing narrowing in an artery in her brain. There was compensated blood flow from other arteries. She was already taking an aspirin before this happened. She was not on a statin. She was continued on aspirin, started on high dose atorvastatin, and also started on plavix. Multiple discussions were had with telestroke neurologist who reviewed the CT, CTA, and MRI that she had here. They did not think she was would benefit from TPA, and not benefit from IR as not clot was seen on her imaging. She was monitored on telemetry and no arrhythmia was seen. Echocardiogram did not show any clot. She was allowed permissive hypertension in the hospital, but will need good blood pressure control as an outpatient. Her A1c was controlled at 6.4 Discharge orders & Medications Discharge Orders: Discharge (Order); Ordered 12/17/20 Ordered By: Juan Amado Prescriptions: New atorvastatin [Lipitor] 20 mg Tablet 80 mg PO BEDTIME Qty: 40 RF: 0 clopidogrel 75 mg Tablet 75 mg PO DAILY 90 Days Qty: 90 RF: 0 Continued metformin 1,000 mg tablet 1,000 mg PO BID Qty: 180 RF: 3 lisinopril 5 mg tablet 10 mg PO DAILY Qty: 90 RF: 3 metoprolol succinate [Toprol XL] 25 mg tablet extended release 24 hr 25 mg PO DAILY Qty: 90 RF: 3 pen needle, diabetic [BD Althea 2nd Gen Pen Needle] 32 gauge x 5/32 needle See Rx Instructions .ROUTE .COMPLEX Qty: 600 RF: 3 Basaglar KwikPen U-100 Insulin 100 unit/mL (3 mL) insulin pen 30 unit SUBCUT DAILY Qty: 30 RF: 3 Victoza 3-Cash 0.6 mg/0.1 mL (18 mg/3 mL) pen injector See Rx Instructions SUBCUT .COMPLEX Qty: 9 RF: 0 aspirin 81 mg tablet,delayed release (DR/EC) 81 mg PO DAILY RF: 0 Follow up/Referrals: Xiomara Diego DO [Primary Care Provider] - Diet/Activity/Treatments Diet: Carb-consistent/Diabetic, Low-fat, Low-sodium and Low-cholesterol Liquid consistency: Normal/Thin Food texture: Regular Visit Report/Discharge Packet Instructions: DI for Stroke-Ischemic Discharge Data Primary Care Provider: Xiomara Diego
--- NOTE | 2020-12-17 10:47 | CM.DPC ---
Addendum entered by YEVGENIY Olson 12/17/20 11:59: ADD: Updated Chari at [facility] that pt has left the building about 1145 and provided pt's height/weight and most recent vital signs via phone and Chari will confirm she received the d/c summary and are anticipating pt's arrival by 1400 pending traffic. BF Original Note: DCP Discharge Acute Rehab Per MD, pt is medically stable to d/c to Acute Rehab today. IMER received a call from Francse at [facility] requesting copy of pt's Medicare card and PT/OT/ST notes to review and once she reviewed she called to confirm that they can accept pt today. IMER met bedside with pt and family friend/RN Megan ([phone]) and explained role and updated on acceptance at [facility] Acute rehab and friend Megan states that the preference is d/c to [facility] as Megan feels that they have the best program in the area. Pt states that she would like to make a referral to [facility] to see if they can accept and both pt and Megan are aware that d/c will likely happen today and SW explained that [facility] will need to have an opening and ability to accept and pt acknowledges understanding. IMER called [facility] rehab admissions Chari [phone] with new referral and confirmed they have openings and updated that pt likely stable for d/c today. GABRIELLA Mercado kindly faxed the referral to [facility] to review. Return call from Chari at [facility] stating they can accept and if pt could arrive between 9800-3142 today it would be preferred. IMER updated RN and MD and then pt and friend Megan bedside and they are very appreciative and SW discussed that family or friend would need to provide transport and that pt can have one visitor for her whole stay and they are agreeable and family can transport pt around 1130 today. IMER [facility] with [facility] that no further COVID neg test needed as pt admitted yesterday and COVID is within the 48 hours. SW to fax d/c summary to [facility] when available today. IMER called Frances at [facility] Acute and updated on pt acceptance at another facility and appreciative of their review and IMER confirmed bedside with pt herself that her preference is [facility] even though its farther from home and her spouse is agreeable with driving to visit at that location. Plan: Patient to d/c to [facility] Acute Rehab today via POV around 1130 for ongoing CVA rehab. YEVGENIY Olson
[2020-12-17 10:57] LABS: Cholesterol 185 mg/dL (140-199); HDL Cholesterol 32 mg/dL (40-60); LDL Cholesterol Calculated 106 mg/dL (<100); Triglycerides 235 mg/dL (35-150)
--- NOTE | 2020-12-17 11:49 | OT.IP.TRT ---
Current Diagnoses Cerebral infarction, unspecified (12/16/20) Occupational Therapy Treatment Note M2 OT-IP Current Condition Start: 12/16/20 11:03 Freq: Status: Active Protocol: Document 12/16/20 11:03 [facility] (Rec: 12/16/20 11:46 [facility] [id number]) Occupational Therapy Current Condition Current Condition Evaluation Date 12/16/20 Treatment Diagnosis R CVA Diagnosis Onset Date 12/16/20 M3 OT- IP Subjective and Pain Start: 12/16/20 11:03 Freq: Status: Active Protocol: Document 12/17/20 12:05 [facility] (Rec: 12/17/20 12:23 [facility] [id number]) OT- Subjective Occupational Therapy Visit Type Type Treatment Note Visit Start Time 10:48 Visit Stop Time 11:49 Total Visit Minutes 44 Notes Pt seen for split treatment of 8710-1438 and [id number] as needing assist to get into the car. Occupational Therapy Visit Comments Patient Comments Pt's friend present for session. ASSOCIATE PROFESSOR OF GEOGRAPHY present for car transfer. Patient/Caregiver Goals To be able to care for herself again. OT Pain Assessment Pain When Pain Assessed At Rest Pain Present Pain Present Denied Pain M4 OT- IP ADL's Start: 12/16/20 11:03 Freq: Status: Active Protocol: Document 12/17/20 12:05 [facility] (Rec: 12/17/20 12:23 [facility] [id number]) OT [id number] Comments OT Self-Feeding Comments NOt at meal time, but will need assist for set-up as left hand not functional to be able to assist at this time due to weakness. OT ADL-Grooming Comments OT Grooming Comments Pt states did prior. OT ADL-Oral Care Comments Oral Care Comments Pt states did prior. OT ADL-Dressing General Eval Upper Body Dressing Ability Maximum Assistance Lower Body Dressing Ability Maximum Assistance Comments OT Dressing Comments Educated pt to dress left side of her body first. S[place]O assist with left arm/hand to be able to assist for UB dressing needs. With support under her left arm able to move with elbow flexed in shoulder flexion and extension. Pt able to lift her left leg up so able to parul her brief and shorts over her foot. MAX A X 1 to help block her left knee from buckling and friend able to assist to pull up clothing items over her hips. OT ADL-Toileting Comments OT Toileting Comments Pt not having to go at this time. OT ADL-Bathing Comments OT Bathing Comments NOt performed. M5 OT- IP IADL's Start: 12/16/20 11:03 Freq: Status: Active Protocol: Document 12/16/20 11:03 [facility] (Rec: 12/16/20 11:46 [facility] [id number]) OT-Instrumental Activities of Daily Living Deficits IADL Deficits Identified Deficits Home Safety Awareness Awareness of Need for Assistance at Home Good Awareness Ability to Problem Solve Emergency Able to Problem Solve Situations Medication Management Medication Management Comments Due to her decreased use of left arm, pt would require assist for set-up. Meal Preparation Meal Preparation Caregiver Provides Assist Meal Preparation Comments At this time due to decreased mobility and functional use of left side of her body will need assist for all IADL needs at this time. Supervisor Bl[employer] Furnace Auxiliaries Supervisor Bl[employer] Furn[employer] A[employer]iliaries Caregiver Provides Assist Supervisor Blast Furnace Auxiliaries Comments At this time due to decreased mobility and functional use of left side of her body will need assist for all IADL needs at this time. M6 OT- IP Functional Cognition Start: 12/16/20 11:03 Freq: Status: Active Protocol: Document 12/17/20 12:05 [facility] (Rec: 12/17/20 12:23 [facility] [id number]) Cognitive Factors Limiting Selfcare Function Cognitive Comments Cognitive Assessment Comments Pt able to follow commands for mobility. Pt increased awareness of midline and aware that she is a bit neglectful on the left side. M7 OT- IP Mobility and Balance Start: 12/16/20 11:03 Freq: Status: Active Protocol: Document 12/17/20 12:05 [facility] (Rec: 12/17/20 12:23 [facility] [id number]) OT-Transfer Assessment Transfers Transfer Ability Moderate Assistance,Maximum Assistance,1 Person Assistance ,2 Person Assistance Technique Transfer Destination Bed,Car,Wheelchair Transfer Technique Stand Step Pivot Devices Transfer Assistive Devices Gait Belt Comments Mobility Comments Stand pivot transfer to the right MODA X 1, assist to hold her left arm and for her balance. Transfer to the left into the car MODA X 2 , pt not putting weight on her left foot and mainly just hopping with assist to turn to get into the car. Had pt's family member park the car close to the curb to increase height for pt to get into the car. OT- Gait Assessment Comments Gait Ability Comments Transfer only at this time. OT- Balance Assessment Sitting Balance and Reactions Static Sitting Balance Ability Fair Dynamic Sitting Balance Ability Fair Standing Balance and Reactions Static Standing Balance Ability Poor Comments Other Balance Tests/Deviations/Treatment Noted sitting static balance : fair+/good - at this time able to keep herself upright while sitting in the wc. M8 OT- IP Objective Assessments Start: 12/16/20 11:03 Freq: Status: Active Protocol: Document 12/17/20 12:05 [facility] (Rec: 12/17/20 12:23 [facility] [id number]) OT Sensation Assessment Comments Summary Comments Cues to use left arm at times, neglect noted. M9 OT- IP Assessment and Plan Start: 12/16/20 11:03 Freq: Status: Active Protocol: Document 12/17/20 12:05 [facility] (Rec: 12/17/20 12:23 [facility] [id number]) OT Summary Assessment and Plan Potential Rehabilitation Potential Excellent Analytic Complexity at Evaluation Moderate Summary OT Impairments Range of Motion,Strength, Balance,Coordination,Tone, Functional Cognition, Functional Mobility,Self- Feeding,Grooming,Dressing, Toileting,Bathing,Toilet Transfers,Shower Transfers, Activity Tolerance Progress Towards Goals Progressing Toward Goals Assessment Summary Pt going to acute rehab and able to tolerate 2 session fo OT today and noted increase in facial symmetry, sitting to midline, and movement for LUE. Goals Self-Feeding Goal Independent Grooming Goal Independent Dressing Goal Independent Toileting Goal Independent Toilet Transfer Goal Independent Shower Transfer Goal Independent OT-Other Goals All goals with incorporating and functional use of LUE/ LUE for needs. Days to Meet Goals 30 Frequency of Treatment Frequency Of Treatment Twice a Day Discharge Recommendations OT Discharge Recommendations Acute Rehab Home Equipment Needs Defer to Acute Rehab Transportation Needs at Discharge Private Vehicle
--- NOTE | 2020-12-17 11:49 | PT.IPTN ---
Current Diagnoses Cerebral infarction, unspecified (12/16/20) Physical Therapy Treatment Note M2 PT-IP Current Condition Start: 12/16/20 15:47 Freq: NEEDED Status: Active Protocol: Document 12/16/20 14:56 DLM (Rec: 12/16/20 16:01 DLM [id number]) Physical Therapy Current Condition Current Condition Evaluation Date 12/16/20 Treatment Diagnosis CVA with left hemiplegia Onset Date 12/16/20 Precautions Other Precautions high fall risk M3 PT-IP Subjective Start: 12/16/20 15:47 Freq: NEEDED Status: Active Protocol: Document 12/17/20 11:43 SP (Rec: 12/17/20 12:24 SP [id number]) Subjective Physical Therapy Visit Type Type Treatment Note Visit Start Time 11:43 Visit Stop Time 11:49 Total Visit Minutes 6 Notes Co treat with OT during car transfer. Number of TAKER OFF BRAKER MACHINE Visits 1 Physical Therapy Visit Comments Patient Comments Pt willing to work with therapy, focus on car transfer for family member transportation to [facility]. Patient Goals Work hard, get better and return home. Therapy Pain Assessment Pain Present Pain Present Denied Pain M4 PT-IP Mobility and Gait Start: 12/16/20 15:47 Freq: NEEDED Status: Active Protocol: Document 12/17/20 11:43 SP (Rec: 12/17/20 12:24 SP [id number]) PT-Transfer Assessment Sit to and From Stand Sit to and from Stand Minimal Assistance Equipment Transfer Assistive Device Gait Belt Orthotic/Prosthetic Devices or Brace: No Transfers Transfer Destination Car Transfer Technique Stand Pivot Transfer Ability Level of Assist Moderate Assistance,2 Person Assistance,Use of Upper Extremities Comments Mobility Comments TAKER OFF BRAKER MACHINE instructed LLE ther ex seated in w/c pre car transfer : LAQ, marching x5 reps. Sit<> stand, stand pivot transfer to L over RLE w/c>small SUV (car close to curb for improved height transition) Mod A x2 person, pt used RUE on door for self support, OT provided support under LUE. Pt did not put weight through LLE with limited space and to close to edge of curb and safety risk of buckling. Lateral and posterior pelvic scoot center in car seat Max A x1 while using RUE on dashboard for self trunk wt shift. TAKER OFF BRAKER MACHINE assisted car safety belt secured, noted good trunk alignment and control seated in front passenger's seat. Gait Assessment Comments Gait Comments Car transfer only SPT Mod A x2 to L. Stair Climbing Assessment Comments Stair Climbing Comments Unable at this time. PT-Balance Assessment Sitting Balance and Reactions Static Sitting Balance Ability Fair Dynamic Sitting Balance Ability Fair Standing Balance and Reactions Static Standing Balance Ability Poor Dynamic Standing Balance Ability Poor Comments Other Balance Tests/Deviations/Treatment Seated trunk balance in w/c : static fair +, dynamic with feet supported on leg rests or ground Fair. Used w/c arm rests when needed. M5 PT-IP Objective Assessments Start: 12/16/20 15:47 Freq: NEEDED Status: Active Protocol: Document 12/16/20 14:56 DLM (Rec: 12/16/20 16:01 DLM [id number]) Orientation Orientation/Cognition Level of Alertness Alert Orientation Name,Age,Birthday,Month,Date, Year,Day of Week,Place, Situation Safety Awareness Understands Safety Issues Memory Description No Deficits Noted Comments left facial droop, slower mental processing, pt becomes tearful when talking about her deficits Gross Range of Motion Upper Extremity ROM Assessment Within Functional Limits Lower Extremity ROM Assessment Within Functional Limits Impairments mild tightness left ankle with DF to neutral Strength Upper Extremity Strength Assessment Left Impaired Shoulder 2+/5 Elbow 3-/5 Wrist 3+/5 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 but moving hand actively, slow pace Lower Extremity Strength Assessment Left Impaired Hip flexion 2+/5 Knee knee ext 1/5 Ankle 0/5 Comments Strength Comments see OT notes for details on left UE weakness Coordination Assessment Gross Coordination Gross Coordination Impaired Assessment Coordination Comments left UE impaired in association with weakness Sensation Assessment Sensation Gross Sensation Left UE Impaired Sensation Description Tingling Muscle Tone Muscle Tone WNL No Comments Muscle Tone Comments mild increased extensor tone left ankle M6 PT-IP Treatment Start: 12/16/20 15:47 Freq: NEEDED Status: Active Protocol: Document 12/17/20 11:43 SP (Rec: 12/17/20 12:24 SP [id number]) Physical Therapy Treatment Exercises Exercises Seated Knee Flexion/Extension Education Education Provided Safety Other Treatments Other Treatment Performed seated marching, hip adduction isometric, LAQ x5 each M7 PT-IP Assessment and Plan Start: 12/16/20 15:47 Freq: NEEDED Status: Active Protocol: Document 12/17/20 11:43 SP (Rec: 12/17/20 12:24 SP [id number]) PT Summary Assessment and Plan Potential Rehabilitation Potential Excellent Status of Condition at Evaluation Evolving Summary Impairments Strength,Balance,Coordination, Sensation,Tone,Cognition,Bed Mobility,Transfers,Gait, Activity Tolerance Progress Towards Goals Progressing Toward Goals,Slow Progress due to Medical Issues ,Slow Progress due to Activity Tolerance Assessment Summary Pt is motivated to improve function and wanting to know all she can do to progress increase independence in funtional mobility. OT stated she was Mod A x1 to R from chair to w/c pre TAKER OFF BRAKER MACHINE arrival. She required Mod A x2 for car transfer to . Pt is ok from therapy stand point in trunk strength in sitting for car transportation to [facility] via family member transportation when medically cleared. Goals Bed Mobility Goal Contact Guard Assistance, Minimal Assistance Transfer Goal Minimal Assistance Gait Goal Moderate Assistance,Venkata Walker Gait Distance 10 feet Days to Meet Goals 5 Frequency of Treatment Frequency Of Treatment Twice a Day Treatment Plan Physical Therapy Treatment Plan Bed Mobility Training,Transfer Training,Gait Training, Therapeutic Exercise,Balance Retraining,Discharge Planning, Neuromuscular Re-ed, Coordination Retraining Other Recommendations and Next Treatment Bed mobility, transfers, Focus seated trunk strengthening, standing tolerance with LLE supported tends to buckle. Recommendations To Nursing Amount of Assist Needed 2 Person Assist Discharge Recommendations PT Discharge Recommendations Acute Rehab Other Discharge Recommendations she is an excellent candidate for acute rehab Equipment Needed for Home Before defer to rehab Discharge Transportation Needs at Discharge Private Vehicle,Wheelchair/ Cabulance
--- NOTE | 2020-12-17 12:21 | ST.IPTN ---
Visit Care Team Role Provider Type Xiomara Diego DO Primary Care Provider Physician Address: [address] [place] [address], [address], [place], [address] Jake Berger DO Emergency Provider Physician Referring Provider Address: [address] [place] [address], [address] Amber Eckert [facility]- Admit Provider Physician Attending Provider Address: [address] [place] [address], [id number] [employer] CHAIR Treatment Note [employer] CHAIR Treatment Note Start: 12/16/20 09:49 Freq: Status: Active Protocol: Document 12/17/20 12:08 CRISTINE (Rec: 12/17/20 12:17 CRISTINE [id number]) Speech Pathology Treatment Note Session Time Visit Start Time 09:10 Visit Stop Time 09:25 Total Visit Minutes 15 Setting Treatment Setting Acute Care Visit Type Note Type Treatment Note Next Note Type Next Note Type Treatment Note General Information General Information Per MD Report: Ms. Tom is a 65 year old woman with past medical history of diabetes and hypertension who presented to the emergency room with left sided weakness. She was a code stroke protocol. She was determined to have her last known well at 9pm when she went to bed and was seen in the ED at approximately 3:22am . She was determined to be outside the window for TPA. She had a head CT done that did not show any acute bleed. CTA showed no vascular abnormality with good flow in the carotids, anterior, and posterior circulation. As such she was not transferred as there was no indication for IR intervention. She then had MRI of the brain which showed a 7mm and 3mm focus of of diffusion restriction in the right thalamus and posterior limb of the internal capsule consistent with acute ischemia . Subjective Identification Type Name,ID Card Others Present Additional Therapist Observations/Patient Presentation The pt was sitting up in chair working with OT, who allowed time for [employer] CHAIR to provide therapy. Pt had eaten a small amount of breakfast without difficulty, as reported by both the pt and OT who had been present during the meal. The pt stated that others report her speech is improved, but she was not sure herself. Chief Complaint(s) Speech Patient Knowledge/Awareness of [employer] CHAIR Role Excellent in Treatment Objective Short Term Goals 1. Pt will independently follow safe swallow strategies to reduce risk of aspiration. 2. Pt will be educated in and will perform OM exercises as prescribed by ST a minimum of 3-4 times /day. Mcfp Goals 1. Pt will safely tolerate least restrictive diet without s/sx aspiration to meet hydration and nutrfritional needs. 2. Pt will produce speech intelligibility sufficient to express her wants and needs and to participate in conversations related to her health. Treatment Activities Education and training was provided in strategies and exercises to improve speech articulation and expressive communication with others. The pt's speech was 100% intelligible to this therapist . Mild left side facial droop and weakness was observed, and the pt reported feeling that her oral structures were heavy and uncoordinated. The pt verbalized understanding of education and oral motor exercises, instructions of which were provided orally with demonstration and in writing for home practice. The pt performed oral motor exercises, demonstrating understanding and ability to perform as instructed. Assessment Patient Response to Treatment Good Rehab Potential Excellent Impairments Identified Dysarthria,Dysphagia Progress Towards Goals Good Progress Assessment of Overall Progress Improving Assessment of Improvement The pt is tolerating current diet without complaint or overt s/sx of aspiration. Appears to have little appetite, at least for this morning's breakfast. Her speech was 100% intelligible with mild symptoms of dysarthria, including mildly reduced rate of speech and increased effort required for articulation, secondary to left side weakness. She demonstrated good understanding of information provided and ability to perform tasks. She is an excellent candidate for inpatient rehab, given the severity of deficits, age, cognitive status and motivation to improve. Reviewed with Patient Goals,Progress Being Made,Home Exercise Program Patient/Caregiver Understanding Excellent Plan Comment Continue therapy over hospital stay. Recommend inpatient rehab at d/c Therapeutic Contents Articulation Training,Client Education,Home Exercise Program,Intelligibility,Oral Motor Training,Parent Education Training,Swallowing/ Feeding Provided Patient/Caregiver Instruction Home Exercise Program,Plan of Care,Questions/Concerns Therapy Recommendations Continue with Current Program
--- NOTE | 2020-12-17 12:31 | PC.NURSE ---
Discharge/Transfer: Pt feels ready to transfer to [facility] for continued out patient rehab. Has been working w/PT/OT/ST and all three have seen her today. [facility] - 7. Pt given transfer packet. Report called Luis Carlos HUBBARD at [facility] and reviewed hospital course. Transfer packet given to pt. Pt spoke with MD prior to leaving. Pt had no concerns when she left. D/c to [facility] via auto with friend.
== END 2020-12-17 11:40 | DRG 65 ==
LOC: ED 05:16 → AC 05:19
PROVIDERS: Internal Medicine; Admitting Provider Nurse Practitioner Family; Emergency Provider Emergency Medicine; PCP Family Medicine; Referring Provider Emergency Medicine; Visit Provider Nurse Practitioner Family
DX: I63.89 Other cerebral infarction (principal); G81.94 Hemiplegia, unspecified affecting left nondominant side; I47.2 Ventricular tachycardia; I67.2 Cerebral atherosclerosis; R29.810 Facial weakness; I65.9 Occlusion and stenosis of unspecified precerebral artery; I10 Essential (primary) hypertension; E11.9 Type 2 diabetes mellitus without complications; W19.XXXA Unspecified fall, initial encounter; Z79.4 Long term (current) use of insulin
CPT/HCPCS: 36415; 70450; 70496; 70498; 70548; 70553; 80048; 80053; 80061; 80305; 82550; 82962; 83036; 83735; 84443; 84484; 85025; 85610; 85730; 87635; 92507; 92522; 92610; 93005; 93010; 93306; 94762; 96361; 96374; 97162; 97166; 97530; 99285; C9803; Q3014; J3475; Q9967

== ENCOUNTER → 2021-02-12 07:06 | Outpatient (CLI) | payer MEDICARE, OTHER, SELFPAY ==
[2020-12-16 06:20] VITALS: BMI 25.4
[2021-02-12 08:19] LABS: Hemoglobin A1C% w Est Avg Glu 6.3 % (4.0-6.0)
[2021-02-12 08:21] LABS: Alanine Aminotransferase 21 IU/L (<35); Albumin 3.9 g/dL (3.5-5.0); Albumin Globulin Ratio 1.5 (1.0-2.8); Alkaline Phosphatase 48 U/L (38-126); Aspartate Aminotransferase 42 IU/L (14-36); BUN Creatinine Ratio 23.3 (6-22); Bilirubin Total 0.8 mg/dL (0.2-1.3); Blood Urea Nitrogen 10 mg/dL (7-17); Calcium 9.4 mg/dL (8.4-10.2); Carbon Dioxide 28 mmol/L (22-32); Chloride 103 mmol/L (98-107); Cholesterol 91 mg/dL (140-199); Estimated Glomerular Filt Rate > 60.0 mL/min (>60); Globulin 2.6 g/dL (1.7-4.1); Glucose 83 mg/dL (80-110); HDL Cholesterol 33 mg/dL (40-60); HEMOLYSIS < 15 (0-50); LDL Cholesterol Calculated 32 mg/dL (<100); Potassium 3.4 mmol/L (3.4-5.1); Sodium 139 mmol/L (137-145); Total Protein 6.5 g/dL (6.3-8.2); Triglycerides 130 mg/dL (35-150)
== END ==
PROVIDERS: PCP Family Medicine; Referring Provider Family Medicine; Visit Provider Family Medicine
DX: R74.01 Elevation of levels of liver transaminase levels (principal); E11.65 Type 2 diabetes mellitus with hyperglycemia; I10 Essential (primary) hypertension; E78.5 Hyperlipidemia, unspecified; I63.9 Cerebral infarction, unspecified
CPT/HCPCS: 36415; 80053; 80061; 83036

== ENCOUNTER → 2021-05-07 07:35 | Outpatient (CLI) | payer MEDICARE, OTHER, SELFPAY ==
[2020-12-16 06:20] VITALS: BMI 25.4
[2021-05-07 08:46] LABS: Add Manual Diff / Slide Review NO; Basophils Absolute Auto 0 /uL (0-100); Basophils Percent Auto 0.3 % (0-2); Eosinophils Absolute Auto 200 /uL (0-450); Eosinophils Percent Auto 2.8 % (2-4); Hematocrit 42.1 % (36-46); Hemoglobin 14.3 g/dL (12.0-16.0); Lymphocytes Absolute Auto 3200 /uL (1100-4500); Lymphocytes Percent Auto 41.3 % (25-40); Mean Corpuscular Hemoglobin 28.3 PG (26-34); Mean Corpuscular Volume 83.3 fL (80-100); Monocytes Absolute Auto 400 /uL (0-900); Monocytes Percent Auto 4.9 % (3-14); Neutrophils Absolute Auto 4000 /uL (1500-7000); Neutrophils Percent Auto 50.7 % (50-75); Platelet Count 289 X10^3/uL (150-400); Red Blood Cell Count 5.06 X10^6/uL (4.0-5.2); Red Cell Distribution Width 13.4 % (11.6-14.8); White Blood Cell Count 7.8 X10^3/uL (4.5-11.0)
[2021-05-07 08:50] LABS: INR 1.1 (0.9-1.3); Prothrombin Time 11.8 SECONDS (10.1-12.7)
[2021-05-07 08:59] LABS: Alanine Aminotransferase 18 IU/L (<35); Albumin 4.4 g/dL (3.5-5.0); Albumin Globulin Ratio 1.9 (1.0-2.8); Alkaline Phosphatase 55 U/L (38-126); Aspartate Aminotransferase 41 IU/L (14-36); BUN Creatinine Ratio 33.3 (6-22); Bilirubin Total 0.6 mg/dL (0.2-1.3); Blood Urea Nitrogen 14 mg/dL (7-17); Calcium 9.4 mg/dL (8.4-10.2); Carbon Dioxide 28 mmol/L (22-32); Chloride 105 mmol/L (98-107); Estimated Glomerular Filt Rate > 60.0 mL/min (>60); Globulin 2.3 g/dL (1.7-4.1); Glucose 121 mg/dL (80-110); HEMOLYSIS < 15 (0-50); Sodium 141 mmol/L (137-145); Total Protein 6.7 g/dL (6.3-8.2)
[2021-05-07 09:05] LABS: Cholesterol 108 mg/dL (140-199); HDL Cholesterol 39 mg/dL (40-60); LDL Cholesterol Calculated 38 mg/dL (<100); Triglycerides 155 mg/dL (35-150)
[2021-05-07 09:19] LABS: Hemoglobin A1C% w Est Avg Glu 6.4 % (4.0-6.0)
== END ==
PROVIDERS: PCP Family Medicine; Referring Provider Family Medicine; Visit Provider Family Medicine
DX: I63.9 Cerebral infarction, unspecified; E11.9 Type 2 diabetes mellitus without complications; I10 Essential (primary) hypertension; E78.2 Mixed hyperlipidemia; Z79.4 Long term (current) use of insulin
CPT/HCPCS: 36415; 80053; 80061; 83036; 85025; 85610

== ENCOUNTER → 2021-06-02 08:54 | Outpatient (CLI) | payer MEDICARE, OTHER, SELFPAY ==
[2020-12-16 06:20] VITALS: BMI 25.4
--- NOTE | 2021-06-02 08:55 | DI.MRI.S_ITS ---
PROCEDURE: MR STROKE Pre- and post-contrast brain MRI, non-contrast brain MR angiogram, pre- and postcontrast neck MR angiogram INDICATIONS: worsening headaches post CVA TECHNIQUE: Brain: Noncontrast axial T1 spin echo, axial T2 fast spin echo, sagittal and axial FLAIR, coronal T2 fast spin echo, axial gradient echo, axial diffusion and ADC through the brain. After the administration of contrast, axial 3D VIBE of the cranial vasculature and brain. Brain MRA: Non-contrast 3-D time of flight MR angiogram, with multiple qnnxxuy-mnzodmmfg-djqwdcyrbx (MIP) reformats performed. Neck MRA: Axial and sagittal TruFISP through the neck. Coronal dynamic MR angiogram during administration of contrast in the arterial and venous phases, with 3-dimenstional pukyawo-ikmxqeeez-pbacbvdpzu (MIP) reformats constructed from subtraction images. COMPARISON: [facility], CT, CT ANGIO HEAD AND NECK, 12/16/2020, 3:26. FINDINGS: Image quality: Excellent. BRAIN: CSF spaces: Ventricles are normal in size and shape. Basal cisterns are patent. No extra-axial fluid collections. Brain: No intracranial bleeds or mass effects. Rg-white matter interface is normal. Diffusion weighted images show no acute ischemic insults. Brainstem appears normal. Normal intravascular flow voids are present. No abnormal intracranial enhancement. Skull and face: Calvarial marrow signal is normal. Orbits appear normal. Sinuses: Sinuses and mastoids are clear. BRAIN MR ANGIOGRAM: Anterior circulation: Decreased flow-related signal within the car right carotid siphon and supraclinoid right carotid artery, reflecting atherosclerotic narrowing seen on the comparison CT angiogram. The anterior an are demonstrate normal flow-related signal. No intracranial occlusion, aneurysm, or vascular malformation demonstrated. Posterior circulation: The visualized portions of the vertebral arteries demonstrate normal caliber, and join to form a normal appearing basilar artery. The flow within the posterior cerebral arteries is normal and symmetric. No stenoses, occlusions, or aneurysms. NECK MR ANGIOGRAM: Carotids: Great vessels demonstrate a conventional anatomy as they arise from the aortic arch. The origins of the common carotid arteries appear patent. The calibers and courses of both common carotid arteries are normal. The bifurcation regions appear normal bilaterally. The internal carotid arteries demonstrate normal course and caliber. Posterior circulation: The origins of the vertebral arteries appear patent. More superior portions of both vertebral arteries demonstrate normal course and caliber, and join to form a normal appearing basilar artery. Miscellaneous: Subclavian arteries appear patent. Pre-contrast images through the neck show no soft tissue abnormalities. IMPRESSION: BRAIN MRI: Chronic microvascular ischemic changes and mild global cerebral volume loss. No acute infarct or other acute intracranial process demonstrated. BRAIN MR ANGIOGRAM: No hemodynamically significant stenosis of the major intracranial arterial circulation. Redemonstration of approximately 50 percent stenosis in the right carotid siphon extending to the supraclinoid segment. NECK MR ANGIOGRAM: No hemodynamically significant stenosis of the major extracranial arterial circulation. Dictated by: Link Peralta M.D. on 06/02/2021 at 16:05 Approved by: Link Peralta M.D. on 06/02/2021 at 16:11
== END ==
PROVIDERS: PCP Family Medicine; Referring Provider Family Medicine; Visit Provider Family Medicine
DX: I63.9 Cerebral infarction, unspecified (principal); R51.9 Headache, unspecified
CPT/HCPCS: 70548; 70553

== ENCOUNTER 2021-10-16 09:00 | Outpatient (RCR) | payer MEDICARE, OTHER, SELFPAY ==
[2020-12-16 06:20] VITALS: BMI 25.4
--- NOTE | 2021-03-13 15:08 | PT.OIE ---
Current Diagnoses Cerebral infarction, unspecified (03/13/21) Muscle weakness (generalized) (03/13/21) Other abnormalities of gait and mobility (03/13/21) Repeated falls (03/13/21) Other symptoms and signs involving the musculoskeletal system (03/13/21) Past Medical History (Last Reviewed 02/01/21 @ 17:05 by Xiomara Diego DO) Diabetes mellitus Essential hypertension History of ventricular tachycardia Hyperlipidemia Past Surgical History (Last Reviewed 02/01/21 @ 17:05 by Xiomara Diego DO) Status post delivery (~1983) Status post delivery (~1985) Status post delivery (~1987) Status post cholecystectomy (~2013) Visit Care Team Role Provider Type Xiomara Diego DO Attending Provider Physician Primary Care Provider Referring Provider Specialty: [facility] Address: [address] [place] [address], [facility] Email: [email or web address] Physical Therapy Initial Evaluation PT-OP-A Visit Information Start: 03/13/21 14:33 Freq: Status: Active Protocol: Document 03/13/21 12:00 DCW (Rec: 03/13/21 15:08 [facility] [id number]) Out-Patient Physical Therapy Visit Information Visit Information Visit Type Initial Evaluation Visit Start Time 12:00 Visit Stop Time 12:45 Total Visit Minutes 45 Visit Number 1 Number of CHIEF OF HARBOR PATROL Visits 0 Evaluation Information Evaluation Date 03/13/21 PT-OP-B Current Condition Start: 03/13/21 14:33 Freq: Status: Active Protocol: Document 03/13/21 12:00 DCW (Rec: 03/13/21 15:08 [facility] [id number]) Current Condition History of Current Condition Onset Date 12/16/20 Current Complaints Hemiparesis, weakness, gait difficulty, decreased balance History of Current Condition Pt is a 65 year old female presenting three months s/p thalamic CVA. Pt presented to ED on 12/16/20 with sudden onset of left-sided weakness when waking up early in the AM to go to the bathroom. Pt noticed she could not more her left arm, tried to stand up, and fell over when her left leg was also unable to support her. The day after hospitalization, pt was transferred to [facility] ([place], [place]) for intensive rehab, notes she underwent 2.5 hours of PT/OT each day. Pt remained there for one months, and was then discharged home on January 13 with home health, and since that time has been undergoing PT 2x/week and OT 3x/week, and was discharged from both disciplines earlier this week. Pt reports her left arm function is her biggest concern, and has been referred to outpatient OT for this, but also has difficulty with gait and balance. Pt wears an AFO on her left foot due to foot drop, and walks with a SPC. Admits she has had a few falls, but her balance has been a bit better since she left [facility] ([place], [place]) and has been slightly more stable at home. Treatment Goals Patient/Caregiver Goals I want to get back to normal function. I want to be able to walk independently without the cane, and use my arms like before. Really, I want to be able to live without depending on anyone, I was so independent before. PT-OP-C Subjective Start: 03/13/21 14:33 Freq: Status: Active Protocol: Document 03/13/21 12:00 DCW (Rec: 03/13/21 15:08 [facility] [id number]) OP-PT Subjective Patient Comments Patient Comments I've already given this three months to recover. I haven't progressed as far as I should have. PT-OP-D Balance Start: 03/13/21 14:33 Freq: Status: Active Protocol: Document 03/13/21 12:00 DCW (Rec: 03/13/21 15:08 [facility] [id number]) Balance Tests Hogan Balance Test Hogan Balance Test Score 41/56 Hogan Impairment Rating 20 to 39% Impaired (Score 34- 44) Single Limb Standing Single Limb- Right 9 seconds Single Limb- Left 2 seconds Hogan Balance Assessment Evaluation Sitting to Standing Ability Independent w/out Hands Unsupported Stance Safely- 2 minutes Sitting Unsupported, Feet on Floor Safely- 2 minutes Standing to Sitting Ability Assist, Control w/Hands Transfer Ability Safely, Minimal Hand Use Unsupported Stance- Eyes Closed Supervision, 10 seconds Unsupported Stance- Eyes Open Supervision to maintain Reaching Forward Standing Safely, 5 inches Pick- Up Object From Floor Supervision Look Behind Shoulder - Standing Shifts Weight Unilateral Turning 360 Degrees Turns slowly, but safely Unsupported Stance, Alternating Feet on 4 Steps w/Supervision Stair Unsupported Tandem Stance Small Step- 30 seconds Unilateral Leg Stance Lifts Leg/Unable to Hold Total Score Hogan Total Score (out of 56 points) 41 Hogan Impairment Rating 20 to 39% Impaired (Score 34- 44) PT-OP-E Functional Tests Start: 03/13/21 14:33 Freq: Status: Active Protocol: Document 03/13/21 12:00 DCW (Rec: 03/13/21 15:08 DCW [id number]) Functional Tests 6 Minute Walk Test Distance 686' Device Used SPC Comments 1.91 ft/sec Timed Up and Go (TUG) Score 13.73 Comments 3-trial average (14.69,13.11 , 13.40) using [facility] TUG Impairment Rating 40 to <60% Impaired (Score 14- 15) PT-OP-M Strength Start: 03/13/21 14:33 Freq: Status: Active Protocol: Document 03/13/21 12:00 DCW (Rec: 03/13/21 15:08 DCW [id number]) Hip Strength Hip Manual Muscle Testing Right Flexion (L2) 4+ Good+ Abduction 4 Good Adduction 4+ Good+ External Rotation 4+ Good+ Internal Rotation 4+ Good+ Left Flexion (L2) 3 Fair Abduction 3+ Fair+ Adduction 4 Good External Rotation 3- Fair- Internal Rotation 2 Poor Knee Strength Knee Manual Muscle Testing Right Flexion (S2) 5 Normal Extension (L3) 5 Normal Left Flexion (S2) 2+ Poor+ Extension (L3) 2- Poor- Ankle/Foot Strength Ankle and Foot Manual Muscle Testing Left Dorsiflexion (L4) 2- Poor- Plantarflexion (S1) 3 Fair PT-OP-T Assessment and Plan Start: 03/13/21 14:33 Freq: Status: Active Protocol: Document 03/13/21 12:00 DCW (Rec: 03/13/21 15:08 DC[facility] [id number]) Physical Therapy Assessment Rehab Potential Rehabilitation Potential Good Evaluation Complexity Number of Personal Factors/Comorbidities 3 or More Number of Body Systems Impaired 3 Clinical Presentation at Evaluation Stable Impairments Impairments Activity Tolerance,Balance, Functional Activities, Functional Mobility,Gait,ROM, Soft Tissue Mobility,Strength, Transfers Other Concerns Fall Risk Increased falls risk per Hogan (41/56) and TUG (13.73) scores Goals Three Impairment Pt completes 6MWT with an average speed of 1.91 ft/sec High Lift Operator Goal (LTG) Pt to complete 6MWT with an average speed of at least 2.4 ft/sec for a total distance > 864' to show decreased risk of functional decline LTG Duration 05/14/21 Two Impairment Increased falls risk per Hogan (41/56) and TUG (13.73) scores Longterm Goal (LTG) Pt to increase Hogan score by at least 5 points to 46/56 to demonstrate decreased falls risk LTG Duration 05/14/21 One Impairment Pt does not have an appropriate home exercise program Short Term Goal (STG) Pt to be independent and compliant with an appropriate HEP STG Duration 04/13/21 Assessment Summary Assessment Pt presents with signs and symptoms consistent with left- sided hemiplegia following Thalamic CVA. Pt showing some signs of frustration that she is not completely recovered yet, and had to spend some of today's session discussing expectations for recovery and treatment following CVA. Pt has some increased falls risk, per Hogan (41/56) and TUG (13. 73) scores, although both scores are fairly promising overall. Pt does display significant weakness in left LE, and for most activity has her left UE hanging at her side. Pt walks fairly well with a SPC, however should benefit from some gait training to better advance left LE, on which she uses an AFO due to drop foot. Pt has clearly been working hard over the last three months with rehab, and is very motivated to improve independence and regain gait and balance function. Physical Therapy Plan Frequency and Duration Frequency of Treatment 2x/Week Duration of Treatment Two months Plan of Care Start Date 03/13/21 Plan of Care End Date 05/14/21 Next Visit Focus/Plan Next Note Type Treatment Note Next Visit Plan Gait training, balance training, LE strengthening, functional mobility.
--- NOTE | 2021-03-13 15:09 | PT.OPPOC ---
Physical, Occupational & Speech Therapy At [facility] Current Diagnoses Cerebral infarction, unspecified (03/13/21) Muscle weakness (generalized) (03/13/21) Other abnormalities of gait and mobility (03/13/21) Repeated falls (03/13/21) Other symptoms and signs involving the musculoskeletal system (03/13/21) Visit Care Team Role Provider Type Xiomara Diego DO Attending Provider Physician Primary Care Provider Referring Provider Specialty: [facility] Address: [address] [place] [address] Email: [email or web address] Plan Of Care PT-OP-T Assessment and Plan Start: 03/13/21 14:33 Freq: Status: Active Protocol: Document 03/13/21 12:00 DCW (Rec: 03/13/21 15:08 DCW [id number]) Physical Therapy Assessment Rehab Potential Rehabilitation Potential Good Evaluation Complexity Number of Personal Factors/Comorbidities 3 or More Number of Body Systems Impaired 3 Clinical Presentation at Evaluation Stable Impairments Impairments Activity Tolerance,Balance, Functional Activities, Functional Mobility,Gait,ROM, Soft Tissue Mobility,Strength, Transfers Other Concerns Fall Risk Increased falls risk per Hogan (41/56) and TUG (13.73) scores Goals Three Impairment Pt completes 6MWT with an average speed of 1.91 ft/sec Architectural Renderer Goal (LTG) Pt to complete 6MWT with an average speed of at least 2.4 ft/sec for a total distance > 864' to show decreased risk of functional decline LTG Duration 05/14/21 Two Impairment Increased falls risk per Hogan (41/56) and TUG (13.73) scores Fci Goal (LTG) Pt to increase Hogan score by at least 5 points to 46/56 to demonstrate decreased falls risk LTG Duration 05/14/21 One Impairment Pt does not have an appropriate home exercise program Short Term Goal (STG) Pt to be independent and compliant with an appropriate HEP STG Duration 04/13/21 Assessment Summary Assessment Pt presents with signs and symptoms consistent with left- sided hemiplegia following Thalamic CVA. Pt showing some signs of frustration that she is not completely recovered yet, and had to spend some of today's session discussing expectations for recovery and treatment following CVA. Pt has some increased falls risk, per Hogan (41/56) and TUG (13. 73) scores, although both scores are fairly promising overall. Pt does display significant weakness in left LE, and for most activity has her left UE hanging at her side. Pt walks fairly well with a SPC, however should benefit from some gait training to better advance left LE, on which she uses an AFO due to drop foot. Pt has clearly been working hard over the last three months with rehab, and is very motivated to improve independence and regain gait and balance function. Physical Therapy Plan Frequency and Duration Frequency of Treatment 2x/Week Duration of Treatment Two months Plan of Care Start Date 03/13/21 Plan of Care End Date 05/14/21 Next Visit Focus/Plan Next Note Type Treatment Note Next Visit Plan Gait training, balance training, LE strengthening, functional mobility. Plan of Care Dates Plan of Care Start Date 03/13/21 Plan of Care End Date 05/14/21 Electronically Signed by: Singh Harris, PT 03/13/21 [id number] Please Sign and Return: I have reviewed this Plan of Care and certify that the skilled therapy services above are required to meet the patient?s needs. Physician Signature Date Printed Name and Credentials Clinical Instructor Signature Printed Name and Credentials
--- NOTE | 2021-03-26 12:00 | PT.OTN ---
Current Diagnoses Cerebral infarction, unspecified (03/26/21) Muscle weakness (generalized) (03/26/21) Other abnormalities of gait and mobility (03/26/21) Repeated falls (03/26/21) Other symptoms and signs involving the musculoskeletal system (03/26/21) Physical Therapy Treatment Note PT-OP-A Visit Information Start: 03/13/21 14:33 Freq: Status: Active Protocol: Document 03/26/21 11:15 DCW (Rec: 03/26/21 11:59 DCW [id number]) Out-Patient Physical Therapy Visit Information Visit Information Visit Type Treatment Note Visit Start Time 11:15 Visit Stop Time 12:00 Total Visit Minutes 45 Visit Number 2 Number of ORDER PLANNER Visits 0 Evaluation Information Evaluation Date 03/13/21 PT-OP-B Current Condition Start: 03/13/21 14:33 Freq: Status: Active Protocol: Document 03/13/21 12:00 DCW (Rec: 03/13/21 15:08 DCW [id number]) Current Condition History of Current Condition Onset Date 12/16/20 Current Complaints Hemiparesis, weakness, gait difficulty, decreased balance History of Current Condition Pt is a 65 year old female presenting three months s/p thalamic CVA. Pt presented to ED on 12/16/20 with sudden onset of left-sided weakness when waking up early in the AM to go to the bathroom. Pt noticed she could not more her left arm, tried to stand up, and fell over when her left leg was also unable to support her. The day after hospitalization, pt was transferred to [facility] for intensive rehab, notes she underwent 2.5 hours of PT/OT each day. Pt remained there for one months, and was then discharged home on January 13 with [facility], and since that time has been undergoing PT 2x/week and OT 3x/week, and was discharged from both disciplines earlier this week. Pt reports her left arm function is her biggest concern, and has been referred to outpatient OT for this, but also has difficulty with gait and balance. Pt wears an AFO on her left foot due to foot drop, and walks with a SPC. Admits she has had a few falls, but her balance has been a bit better since she left [facility] and has been slightly more stable at home. Treatment Goals Patient/Caregiver Goals I want to get back to normal function. I want to be able to walk independently without the cane, and use my arms like before. Really, I want to be able to live without depending on anyone, I was so independent before. PT-OP-C Subjective Start: 03/13/21 14:33 Freq: Status: Active Protocol: Document 03/26/21 11:15 DCW (Rec: 03/26/21 11:59 DCW [id number]) OP-PT Subjective Patient Comments Patient Comments When I try to walk barefoot, my foot still turns. Is there a way we can work on that? PT-OP-D Balance Start: 03/13/21 14:33 Freq: Status: Active Protocol: Document 03/13/21 12:00 DCW (Rec: 03/13/21 15:08 DCW [id number]) Balance Tests Hogan Balance Test Hogan Balance Test Score 41/56 Hogan Impairment Rating 20 to 39% Impaired (Score 34- 44) Single Limb Standing Single Limb- Right 9 seconds Single Limb- Left 2 seconds Hogan Balance Assessment Evaluation Sitting to Standing Ability Independent w/out Hands Unsupported Stance Safely- 2 minutes Sitting Unsupported, Feet on Floor Safely- 2 minutes Standing to Sitting Ability Assist, Control w/Hands Transfer Ability Safely, Minimal Hand Use Unsupported Stance- Eyes Closed Supervision, 10 seconds Unsupported Stance- Eyes Open Supervision to maintain Reaching Forward Standing Safely, 5 inches Pick- Up Object From Floor Supervision Look Behind Shoulder - Standing Shifts Weight Unilateral Turning 360 Degrees Turns slowly, but safely Unsupported Stance, Alternating Feet on 4 Steps w/Supervision Stair Unsupported Tandem Stance Small Step- 30 seconds Unilateral Leg Stance Lifts Leg/Unable to Hold Total Score Hogan Total Score (out of 56 points) 41 Hogan Impairment Rating 20 to 39% Impaired (Score 34- 44) PT-OP-E Functional Tests Start: 03/13/21 14:33 Freq: Status: Active Protocol: Document 03/13/21 12:00 DCW (Rec: 03/13/21 15:08 DCW [id number]) Functional Tests 6 Minute Walk Test Distance 686' Device Used SPC Comments 1.91 ft/sec Timed Up and Go (TUG) Score 13.73 Comments 3-trial average (14.69,13.11 , 13.40) using SPC TUG Impairment Rating 40 to <60% Impaired (Score 14- 15) PT-OP-M Strength Start: 03/13/21 14:33 Freq: Status: Active Protocol: Document 03/13/21 12:00 DCW (Rec: 03/13/21 15:08 DCW [id number]) Hip Strength Hip Manual Muscle Testing Right Flexion (L2) 4+ Good+ Abduction 4 Good Adduction 4+ Good+ External Rotation 4+ Good+ Internal Rotation 4+ Good+ Left Flexion (L2) 3 Fair Abduction 3+ Fair+ Adduction 4 Good External Rotation 3- Fair- Internal Rotation 2 Poor Knee Strength Knee Manual Muscle Testing Right Flexion (S2) 5 Normal Extension (L3) 5 Normal Left Flexion (S2) 2+ Poor+ Extension (L3) 2- Poor- Ankle/Foot Strength Ankle and Foot Manual Muscle Testing Left Dorsiflexion (L4) 2- Poor- Plantarflexion (S1) 3 Fair PT-OP-Q Treatments Start: 03/13/21 14:33 Freq: Status: Active Protocol: Document 03/26/21 11:15 DCW (Rec: 03/26/21 11:59 DCW [id number]) Cardio Equipment Recumbent Elliptical ([employer]) Duration (Minutes) 5 Resistance 3 Seat Position 1 Gym Equipment Shuttle Recovery Bilateral Squats Resistance 75# Shuttle Recovery Platform Stable Unilateral Squats Resistance 25# Shuttle Recovery Platform Stable Therapeutic Exercises Sidelying Exercises 2 Sidelying Exercise Name Reverse Clamshell Side left 1 Sidelying Exercise Name Clamshell Side left PT-OP-R Modalities Start: 03/13/21 14:33 Freq: Status: Active Protocol: Document 03/26/21 11:15 DCW (Rec: 03/26/21 12:00 DCW [id number]) Electric Stimulation Electric Stimulation Zambian Stimulation Body Location Left Anterior Tib Duration (Minutes) 10 Intensity 50 Patient Position Sitting Comments 5 on, 5 off PT-OP-T Assessment and Plan Start: 03/13/21 14:33 Freq: Status: Active Protocol: Document 03/26/21 11:15 DCW (Rec: 03/26/21 11:59 DCW [id number]) Physical Therapy Assessment Impairments Impairments Activity Tolerance,Balance, Functional Activities, Functional Mobility,Gait,ROM, Soft Tissue Mobility,Strength, Transfers Other Concerns Fall Risk Increased falls risk per Hogan (41/56) and TUG (13.73) scores Goals Three Impairment Pt completes 6MWT with an average speed of 1.91 ft/sec Fdc Goal (LTG) Pt to complete 6MWT with an average speed of at least 2.4 ft/sec for a total distance > 864' to show decreased risk of functional decline LTG Duration 05/14/21 Two Impairment Increased falls risk per Hogan (41/56) and TUG (13.73) scores Cap Cutter Goal (LTG) Pt to increase Hogan score by at least 5 points to 46/56 to demonstrate decreased falls risk LTG Duration 05/14/21 One Impairment Pt does not have an appropriate home exercise program Short Term Goal (STG) Pt to be independent and compliant with an appropriate HEP STG Duration 04/13/21 Assessment Summary Assessment Pt tolerated e-stim very well, able to show dorsiflexion during surinamese stim. Pt eager to progress, anxious to get her ankle working better so she doesn't need the AFO. Physical Therapy Plan Frequency and Duration Frequency of Treatment 2x/Week Duration of Treatment Two months Plan of Care Start Date 03/13/21 Plan of Care End Date 05/14/21 Next Visit Focus/Plan Next Note Type Treatment Note Next Visit Plan Gait training, balance training, LE strengthening, functional mobility.
--- NOTE | 2021-03-30 10:40 | PT.OTN ---
Current Diagnoses Cerebral infarction, unspecified (03/30/21) Muscle weakness (generalized) (03/30/21) Other abnormalities of gait and mobility (03/30/21) Repeated falls (03/30/21) Other symptoms and signs involving the musculoskeletal system (03/30/21) Physical Therapy Treatment Note PT-OP-A Visit Information Start: 03/13/21 14:33 Freq: Status: Active Protocol: Document 03/30/21 09:47 DCW (Rec: 03/30/21 10:40 DCW [id number]) Out-Patient Physical Therapy Visit Information Visit Information Visit Type Treatment Note Visit Start Time 09:47 Visit Stop Time 10:30 Total Visit Minutes 43 Visit Number 3 Number of PATIENT SERVICES COORDINATOR Visits 0 Evaluation Information Evaluation Date 03/13/21 PT-OP-B Current Condition Start: 03/13/21 14:33 Freq: Status: Active Protocol: Document 03/13/21 12:00 DCW (Rec: 03/13/21 15:08 DCW [id number]) Current Condition History of Current Condition Onset Date 12/16/20 Current Complaints Hemiparesis, weakness, gait difficulty, decreased balance History of Current Condition Pt is a 65 year old female presenting three months s/p thalamic CVA. Pt presented to ED on 12/16/20 with sudden onset of left-sided weakness when waking up early in the AM to go to the bathroom. Pt noticed she could not more her left arm, tried to stand up, and fell over when her left leg was also unable to support her. The day after hospitalization, pt was transferred to [facility] for intensive rehab, notes she underwent 2.5 hours of PT/OT each day. Pt remained there for one months, and was then discharged home on January 13 with [facility], and since that time has been undergoing PT 2x/week and OT 3x/week, and was discharged from both disciplines earlier this week. Pt reports her left arm function is her biggest concern, and has been referred to outpatient OT for this, but also has difficulty with gait and balance. Pt wears an AFO on her left foot due to foot drop, and walks with a SPC. Admits she has had a few falls, but her balance has been a bit better since she left [facility] and has been slightly more stable at home. Treatment Goals Patient/Caregiver Goals I want to get back to normal function. I want to be able to walk independently without the cane, and use my arms like before. Really, I want to be able to live without depending on anyone, I was so independent before. PT-OP-C Subjective Start: 03/13/21 14:33 Freq: Status: Active Protocol: Document 03/30/21 09:47 DCW (Rec: 03/30/21 10:40 DCW [id number]) OP-PT Subjective Patient Comments Patient Comments Pt reports she is doing fairly well today, no new complaints . PT-OP-D Balance Start: 03/13/21 14:33 Freq: Status: Active Protocol: Document 03/13/21 12:00 DCW (Rec: 03/13/21 15:08 DCW [id number]) Balance Tests Hogan Balance Test Hogan Balance Test Score 41/56 Hogan Impairment Rating 20 to 39% Impaired (Score 34- 44) Single Limb Standing Single Limb- Right 9 seconds Single Limb- Left 2 seconds Hogan Balance Assessment Evaluation Sitting to Standing Ability Independent w/out Hands Unsupported Stance Safely- 2 minutes Sitting Unsupported, Feet on Floor Safely- 2 minutes Standing to Sitting Ability Assist, Control w/Hands Transfer Ability Safely, Minimal Hand Use Unsupported Stance- Eyes Closed Supervision, 10 seconds Unsupported Stance- Eyes Open Supervision to maintain Reaching Forward Standing Safely, 5 inches Pick- Up Object From Floor Supervision Look Behind Shoulder - Standing Shifts Weight Unilateral Turning 360 Degrees Turns slowly, but safely Unsupported Stance, Alternating Feet on 4 Steps w/Supervision Stair Unsupported Tandem Stance Small Step- 30 seconds Unilateral Leg Stance Lifts Leg/Unable to Hold Total Score Hogan Total Score (out of 56 points) 41 Hogan Impairment Rating 20 to 39% Impaired (Score 34- 44) PT-OP-E Functional Tests Start: 03/13/21 14:33 Freq: Status: Active Protocol: Document 03/13/21 12:00 DCW (Rec: 03/13/21 15:08 DCW [id number]) Functional Tests 6 Minute Walk Test Distance 686' Device Used [facility] Comments 1.91 ft/sec Timed Up and Go (TUG) Score 13.73 Comments 3-trial average (14.69,13.11 , 13.40) using SPC TUG Impairment Rating 40 to <60% Impaired (Score 14- 15) PT-OP-M Strength Start: 03/13/21 14:33 Freq: Status: Active Protocol: Document 03/13/21 12:00 DCW (Rec: 03/13/21 15:08 DCW [id number]) Hip Strength Hip Manual Muscle Testing Right Flexion (L2) 4+ Good+ Abduction 4 Good Adduction 4+ Good+ External Rotation 4+ Good+ Internal Rotation 4+ Good+ Left Flexion (L2) 3 Fair Abduction 3+ Fair+ Adduction 4 Good External Rotation 3- Fair- Internal Rotation 2 Poor Knee Strength Knee Manual Muscle Testing Right Flexion (S2) 5 Normal Extension (L3) 5 Normal Left Flexion (S2) 2+ Poor+ Extension (L3) 2- Poor- Ankle/Foot Strength Ankle and Foot Manual Muscle Testing Left Dorsiflexion (L4) 2- Poor- Plantarflexion (S1) 3 Fair PT-OP-Q Treatments Start: 03/13/21 14:33 Freq: Status: Active Protocol: Document 03/30/21 09:47 DCW (Rec: 03/30/21 10:40 DCW [id number]) Cardio Equipment Recumbent Elliptical ([employer]) Duration (Minutes) 5 Resistance 4 Seat Position 1 Gym Equipment Shuttle Recovery Bilateral Squats Resistance 75# Shuttle Recovery Platform Stable Unilateral Squats Resistance 25# Shuttle Recovery Platform Stable Therapeutic Exercises Standing Exercises 2 Standing Exercise Name Hip Extension Side bilateral Resistance Yellow Equipment Used T-band 1 Standing Exercise Name Hip Abduction Side bilateral Resistance Yellow Equipment Used T-band Therapeutic Activity Therapeutic Activity 1 Name Sit<->Stand Comments 2 block under R foot Neuro Re-Education Treatment Balance Activities 1 Details Balance board Surface Lateral tilt Comments Equalizing WBing through each LE EO/EC PT-OP-R Modalities Start: 03/13/21 14:33 Freq: Status: Active Protocol: Document 03/30/21 09:47 DCW (Rec: 03/30/21 10:40 DCW [id number]) Electric Stimulation Electric Stimulation Greenlandic Stimulation Body Location Left Anterior Tib Duration (Minutes) 10 Intensity 49 Patient Position Sitting Comments 5 on, 5 off PT-OP-T Assessment and Plan Start: 03/13/21 14:33 Freq: Status: Active Protocol: Document 03/30/21 09:47 DCW (Rec: 03/30/21 10:40 DCW [id number]) Physical Therapy Assessment Impairments Impairments Activity Tolerance,Balance, Functional Activities, Functional Mobility,Gait,ROM, Soft Tissue Mobility,Strength, Transfers Other Concerns Fall Risk Increased falls risk per Hogan (41/56) and TUG (13.73) scores Goals Three Impairment Pt completes 6MWT with an average speed of 1.91 ft/sec Nursing Home Goal (LTG) Pt to complete 6MWT with an average speed of at least 2.4 ft/sec for a total distance > 864' to show decreased risk of functional decline LTG Duration 05/14/21 Two Impairment Increased falls risk per Hogan (41/56) and TUG (13.73) scores Nursing Home Goal (LTG) Pt to increase Hogan score by at least 5 points to 46/56 to demonstrate decreased falls risk LTG Duration 05/14/21 One Impairment Pt does not have an appropriate home exercise program Short Term Goal (STG) Pt to be independent and compliant with an appropriate HEP STG Duration 04/13/21 Assessment Summary Assessment Pt showing some mild increase in toe extension, doing well with functional mobility and balance. Physical Therapy Plan Frequency and Duration Frequency of Treatment 2x/Week Duration of Treatment Two months Plan of Care Start Date 03/13/21 Plan of Care End Date 05/14/21 Therapeutic Interventions Therapeutic Interventions Aquatic Therapy,Balance Training,Gait Training,Home Exercise Program,Manual Therapy,Neuromuscular Re- education,Patient/Caregiver Education,Self-Care/Home Management,Soft Tissue Mobilization,Therapeutic Exercises Modalities Cold Pack/Ice Massage,Electric Stimulation,Hot Packs Next Visit Focus/Plan Next Note Type Treatment Note Next Visit Plan Gait training, balance training, LE strengthening, functional mobility.
--- NOTE | 2021-04-02 10:31 | PT.OTN ---
Current Diagnoses Cerebral infarction, unspecified (04/02/21) Muscle weakness (generalized) (04/02/21) Other abnormalities of gait and mobility (04/02/21) Repeated falls (04/02/21) Other symptoms and signs involving the musculoskeletal system (04/02/21) Physical Therapy Treatment Note PT-OP-A Visit Information Start: 03/13/21 14:33 Freq: Status: Active Protocol: Document 04/02/21 09:45 DCW (Rec: 04/02/21 10:31 DCW [id number]) Out-Patient Physical Therapy Visit Information Visit Information Visit Type Treatment Note Visit Start Time 09:45 Visit Stop Time 10:30 Total Visit Minutes 45 Visit Number 4 Number of WEB PUBLISHER Visits 0 Evaluation Information Evaluation Date 03/13/21 PT-OP-B Current Condition Start: 03/13/21 14:33 Freq: Status: Active Protocol: Document 03/13/21 12:00 DCW (Rec: 03/13/21 15:08 DCW [id number]) Current Condition History of Current Condition Onset Date 12/16/20 Current Complaints Hemiparesis, weakness, gait difficulty, decreased balance History of Current Condition Pt is a 65 year old female presenting three months s/p thalamic CVA. Pt presented to ED on 12/16/20 with sudden onset of left-sided weakness when waking up early in the AM to go to the bathroom. Pt noticed she could not more her left arm, tried to stand up, and fell over when her left leg was also unable to support her. The day after hospitalization, pt was transferred to [facility] for intensive rehab, notes she underwent 2.5 hours of PT/OT each day. Pt remained there for one months, and was then discharged home on January 13 with [facility], and since that time has been undergoing PT 2x/week and OT 3x/week, and was discharged from both disciplines earlier this week. Pt reports her left arm function is her biggest concern, and has been referred to outpatient OT for this, but also has difficulty with gait and balance. Pt wears an AFO on her left foot due to foot drop, and walks with a SPC. Admits she has had a few falls, but her balance has been a bit better since she left [facility] and has been slightly more stable at home. Treatment Goals Patient/Caregiver Goals I want to get back to normal function. I want to be able to walk independently without the cane, and use my arms like before. Really, I want to be able to live without depending on anyone, I was so independent before. PT-OP-C Subjective Start: 03/13/21 14:33 Freq: Status: Active Protocol: Document 04/02/21 09:45 DCW (Rec: 04/02/21 10:31 DCW [id number]) OP-PT Subjective Patient Comments Patient Comments Pt doing well, has no concerns at the moment. PT-OP-D Balance Start: 03/13/21 14:33 Freq: Status: Active Protocol: Document 03/13/21 12:00 DCW (Rec: 03/13/21 15:08 DCW [id number]) Balance Tests Hogan Balance Test Hogan Balance Test Score 41/56 Hogan Impairment Rating 20 to 39% Impaired (Score 34- 44) Single Limb Standing Single Limb- Right 9 seconds Single Limb- Left 2 seconds Hogan Balance Assessment Evaluation Sitting to Standing Ability Independent w/out Hands Unsupported Stance Safely- 2 minutes Sitting Unsupported, Feet on Floor Safely- 2 minutes Standing to Sitting Ability Assist, Control w/Hands Transfer Ability Safely, Minimal Hand Use Unsupported Stance- Eyes Closed Supervision, 10 seconds Unsupported Stance- Eyes Open Supervision to maintain Reaching Forward Standing Safely, 5 inches Pick- Up Object From Floor Supervision Look Behind Shoulder - Standing Shifts Weight Unilateral Turning 360 Degrees Turns slowly, but safely Unsupported Stance, Alternating Feet on 4 Steps w/Supervision Stair Unsupported Tandem Stance Small Step- 30 seconds Unilateral Leg Stance Lifts Leg/Unable to Hold Total Score Hogan Total Score (out of 56 points) 41 Hogan Impairment Rating 20 to 39% Impaired (Score 34- 44) PT-OP-E Functional Tests Start: 03/13/21 14:33 Freq: Status: Active Protocol: Document 03/13/21 12:00 DCW (Rec: 03/13/21 15:08 DCW [id number]) Functional Tests 6 Minute Walk Test Distance 686' Device Used [facility] Comments 1.91 ft/sec Timed Up and Go (TUG) Score 13.73 Comments 3-trial average (14.69,13.11 , 13.40) using SPC TUG Impairment Rating 40 to <60% Impaired (Score 14- 15) PT-OP-M Strength Start: 03/13/21 14:33 Freq: Status: Active Protocol: Document 03/13/21 12:00 DCW (Rec: 03/13/21 15:08 DCW [id number]) Hip Strength Hip Manual Muscle Testing Right Flexion (L2) 4+ Good+ Abduction 4 Good Adduction 4+ Good+ External Rotation 4+ Good+ Internal Rotation 4+ Good+ Left Flexion (L2) 3 Fair Abduction 3+ Fair+ Adduction 4 Good External Rotation 3- Fair- Internal Rotation 2 Poor Knee Strength Knee Manual Muscle Testing Right Flexion (S2) 5 Normal Extension (L3) 5 Normal Left Flexion (S2) 2+ Poor+ Extension (L3) 2- Poor- Ankle/Foot Strength Ankle and Foot Manual Muscle Testing Left Dorsiflexion (L4) 2- Poor- Plantarflexion (S1) 3 Fair PT-OP-Q Treatments Start: 03/13/21 14:33 Freq: Status: Active Protocol: Document 04/02/21 09:45 DCW (Rec: 04/02/21 10:31 DCW [id number]) Cardio Equipment Recumbent Stepper (Sci-Fit) Duration (Minutes) 5 Resistance 3 Seat Position 4 Gym Equipment Shuttle Recovery Bilateral Squats Resistance 62# Shuttle Recovery Platform Unstable Unilateral Squats Details Left Resistance 25# Shuttle Recovery Platform Stable Therapeutic Exercises Sitting Exercises 2 Sitting Exercise Name Hip Abduction Side bilateral Resistance Lv 2 Equipment Used T-band 1 Sitting Exercise Name LAQ Side bilateral Resistance 4# Standing Exercises 2 Standing Exercise Name Hip Extension Side bilateral Resistance Yellow Equipment Used T-band 1 Standing Exercise Name Hip Abduction Side bilateral Resistance Yellow Equipment Used T-band Neuro Re-Education Treatment Balance Activities 1 Details Balance board Surface Lateral tilt Comments Equalizing WBing through each LE, Lateral weight shift PT-OP-R Modalities Start: 03/13/21 14:33 Freq: Status: Active Protocol: Document 04/02/21 09:45 DCW (Rec: 04/02/21 10:31 DCW [id number]) Electric Stimulation Electric Stimulation Qatari Stimulation Body Location Left Anterior Tib Duration (Minutes) 10 Intensity 37 Patient Position Sitting Comments 5 on, 5 off PT-OP-T Assessment and Plan Start: 03/13/21 14:33 Freq: Status: Active Protocol: Document 04/02/21 09:45 DCW (Rec: 04/02/21 10:31 DCW [id number]) Physical Therapy Assessment Impairments Impairments Activity Tolerance,Balance, Functional Activities, Functional Mobility,Gait,ROM, Soft Tissue Mobility,Strength, Transfers Other Concerns Fall Risk Increased falls risk per Hogan (41/56) and TUG (13.73) scores Goals Three Impairment Pt completes 6MWT with an average speed of 1.91 ft/sec Chcf Goal (LTG) Pt to complete 6MWT with an average speed of at least 2.4 ft/sec for a total distance > 864' to show decreased risk of functional decline LTG Duration 05/14/21 Two Impairment Increased falls risk per Hogan (41/56) and TUG (13.73) scores Chcf Goal (LTG) Pt to increase Hogan score by at least 5 points to 46/56 to demonstrate decreased falls risk LTG Duration 05/14/21 One Impairment Pt does not have an appropriate home exercise program Short Term Goal (STG) Pt to be independent and compliant with an appropriate HEP STG Duration 04/13/21 Assessment Summary Assessment Pt happy with her effort today , was thrilled that she was experiencing some left quad fatigue, it's actually doing something now! Physical Therapy Plan Frequency and Duration Frequency of Treatment 2x/Week Duration of Treatment Two months Plan of Care Start Date 03/13/21 Plan of Care End Date 05/14/21 Therapeutic Interventions Therapeutic Interventions Aquatic Therapy,Balance Training,Gait Training,Home Exercise Program,Manual Therapy,Neuromuscular Re- education,Patient/Caregiver Education,Self-Care/Home Management,Soft Tissue Mobilization,Therapeutic Exercises Modalities Cold Pack/Ice Massage,Electric Stimulation,Hot Packs Next Visit Focus/Plan Next Note Type Treatment Note Next Visit Plan Gait training, balance training, LE strengthening, functional mobility.
--- NOTE | 2021-04-06 10:31 | PT.OTN ---
Current Diagnoses Cerebral infarction, unspecified (04/06/21) Muscle weakness (generalized) (04/06/21) Other abnormalities of gait and mobility (04/06/21) Repeated falls (04/06/21) Other symptoms and signs involving the musculoskeletal system (04/06/21) Physical Therapy Treatment Note PT-OP-A Visit Information Start: 03/13/21 14:33 Freq: Status: Active Protocol: Document 04/06/21 09:45 DCW (Rec: 04/06/21 10:31 DCW [id number]) Out-Patient Physical Therapy Visit Information Visit Information Visit Type Treatment Note Visit Start Time 09:45 Visit Stop Time 10:30 Total Visit Minutes 45 Visit Number 5 Number of COMMERCIAL PILOT Visits 0 Evaluation Information Evaluation Date 03/13/21 PT-OP-B Current Condition Start: 03/13/21 14:33 Freq: Status: Active Protocol: Document 03/13/21 12:00 DCW (Rec: 03/13/21 15:08 DCW [id number]) Current Condition History of Current Condition Onset Date 12/16/20 Current Complaints Hemiparesis, weakness, gait difficulty, decreased balance History of Current Condition Pt is a 65 year old female presenting three months s/p thalamic CVA. Pt presented to ED on 12/16/20 with sudden onset of left-sided weakness when waking up early in the AM to go to the bathroom. Pt noticed she could not more her left arm, tried to stand up, and fell over when her left leg was also unable to support her. The day after hospitalization, pt was transferred to [facility] for intensive rehab, notes she underwent 2.5 hours of PT/OT each day. Pt remained there for one months, and was then discharged home on January 13 with [facility], and since that time has been undergoing PT 2x/week and OT 3x/week, and was discharged from both disciplines earlier this week. Pt reports her left arm function is her biggest concern, and has been referred to outpatient OT for this, but also has difficulty with gait and balance. Pt wears an AFO on her left foot due to foot drop, and walks with a SPC. Admits she has had a few falls, but her balance has been a bit better since she left [facility] and has been slightly more stable at home. Treatment Goals Patient/Caregiver Goals I want to get back to normal function. I want to be able to walk independently without the cane, and use my arms like before. Really, I want to be able to live without depending on anyone, I was so independent before. PT-OP-C Subjective Start: 03/13/21 14:33 Freq: Status: Active Protocol: Document 04/06/21 09:45 DCW (Rec: 04/06/21 10:31 DCW [id number]) OP-PT Subjective Patient Comments Patient Comments Pt notes she did a lot of walking this weekend, which created some low back discomfort. PT-OP-D Balance Start: 03/13/21 14:33 Freq: Status: Active Protocol: Document 03/13/21 12:00 DCW (Rec: 03/13/21 15:08 DCW [id number]) Balance Tests Hogan Balance Test Hogan Balance Test Score 41/56 Hogan Impairment Rating 20 to 39% Impaired (Score 34- 44) Single Limb Standing Single Limb- Right 9 seconds Single Limb- Left 2 seconds Hogan Balance Assessment Evaluation Sitting to Standing Ability Independent w/out Hands Unsupported Stance Safely- 2 minutes Sitting Unsupported, Feet on Floor Safely- 2 minutes Standing to Sitting Ability Assist, Control w/Hands Transfer Ability Safely, Minimal Hand Use Unsupported Stance- Eyes Closed Supervision, 10 seconds Unsupported Stance- Eyes Open Supervision to maintain Reaching Forward Standing Safely, 5 inches Pick- Up Object From Floor Supervision Look Behind Shoulder - Standing Shifts Weight Unilateral Turning 360 Degrees Turns slowly, but safely Unsupported Stance, Alternating Feet on 4 Steps w/Supervision Stair Unsupported Tandem Stance Small Step- 30 seconds Unilateral Leg Stance Lifts Leg/Unable to Hold Total Score Hogan Total Score (out of 56 points) 41 Hogan Impairment Rating 20 to 39% Impaired (Score 34- 44) PT-OP-E Functional Tests Start: 03/13/21 14:33 Freq: Status: Active Protocol: Document 03/13/21 12:00 DCW (Rec: 03/13/21 15:08 DCW [id number]) Functional Tests 6 Minute Walk Test Distance 686' Device Used SPC Comments 1.91 ft/sec Timed Up and Go (TUG) Score 13.73 Comments 3-trial average (14.69,13.11 , 13.40) using SPC TUG Impairment Rating 40 to <60% Impaired (Score 14- 15) PT-OP-M Strength Start: 03/13/21 14:33 Freq: Status: Active Protocol: Document 03/13/21 12:00 DCW (Rec: 03/13/21 15:08 DCW [id number]) Hip Strength Hip Manual Muscle Testing Right Flexion (L2) 4+ Good+ Abduction 4 Good Adduction 4+ Good+ External Rotation 4+ Good+ Internal Rotation 4+ Good+ Left Flexion (L2) 3 Fair Abduction 3+ Fair+ Adduction 4 Good External Rotation 3- Fair- Internal Rotation 2 Poor Knee Strength Knee Manual Muscle Testing Right Flexion (S2) 5 Normal Extension (L3) 5 Normal Left Flexion (S2) 2+ Poor+ Extension (L3) 2- Poor- Ankle/Foot Strength Ankle and Foot Manual Muscle Testing Left Dorsiflexion (L4) 2- Poor- Plantarflexion (S1) 3 Fair PT-OP-Q Treatments Start: 03/13/21 14:33 Freq: Status: Active Protocol: Document 04/06/21 09:45 DCW (Rec: 04/06/21 10:31 DCW [id number]) Cardio Equipment Recumbent Stepper (Sci-Fit) Duration (Minutes) 5 Resistance 3 Seat Position 6 Gym Equipment Shuttle Recovery Bilateral Squats Resistance 62# Shuttle Recovery Platform Unstable Unilateral Squats Details Left Resistance 25# Shuttle Recovery Platform Stable Therapeutic Exercises Sitting Exercises 2 Sitting Exercise Name Hip Abduction Side bilateral Resistance Lv 2 Equipment Used T-band 1 Sitting Exercise Name LAQ Side bilateral Resistance 4# Standing Exercises 2 Standing Exercise Name Hip Extension Side bilateral Resistance Yellow Equipment Used T-band 1 Standing Exercise Name Hip Abduction Side bilateral Resistance Yellow Equipment Used T-band Neuro Re-Education Treatment Balance Activities 2 Details SLS Surface Firm Equipment // bars 1 Details Balance board Surface Lateral tilt Comments Equalizing WBing through each LE, Lateral weight shift PT-OP-R Modalities Start: 03/13/21 14:33 Freq: Status: Active Protocol: Document 04/06/21 09:45 DCW (Rec: 04/06/21 10:31 DCW [id number]) Electric Stimulation Electric Stimulation Polish Stimulation Body Location Left Anterior Tib Duration (Minutes) 10 Intensity 40 Patient Position Sitting Comments 5 on, 5 off PT-OP-T Assessment and Plan Start: 03/13/21 14:33 Freq: Status: Active Protocol: Document 04/06/21 09:45 DCW (Rec: 04/06/21 10:31 DCW [id number]) Physical Therapy Assessment Impairments Impairments Activity Tolerance,Balance, Functional Activities, Functional Mobility,Gait,ROM, Soft Tissue Mobility,Strength, Transfers Other Concerns Fall Risk Increased falls risk per Hogan (41/56) and TUG (13.73) scores Goals Three Impairment Pt completes 6MWT with an average speed of 1.91 ft/sec Can Line Examiner Goal (LTG) Pt to complete 6MWT with an average speed of at least 2.4 ft/sec for a total distance > 864' to show decreased risk of functional decline LTG Duration 05/14/21 Two Impairment Increased falls risk per Hogan (41/56) and TUG (13.73) scores Detention Goal (LTG) Pt to increase Hogan score by at least 5 points to 46/56 to demonstrate decreased falls risk LTG Duration 05/14/21 One Impairment Pt does not have an appropriate home exercise program Short Term Goal (STG) Pt to be independent and compliant with an appropriate HEP STG Duration 04/13/21 Assessment Summary Assessment Pt making some good gains, seeing some increased L quad definition, increased trust with WBing on left LE. Physical Therapy Plan Frequency and Duration Frequency of Treatment 2x/Week Duration of Treatment Two months Plan of Care Start Date 03/13/21 Plan of Care End Date 05/14/21 Therapeutic Interventions Therapeutic Interventions Aquatic Therapy,Balance Training,Gait Training,Home Exercise Program,Manual Therapy,Neuromuscular Re- education,Patient/Caregiver Education,Self-Care/Home Management,Soft Tissue Mobilization,Therapeutic Exercises Modalities Cold Pack/Ice Massage,Electric Stimulation,Hot Packs Next Visit Focus/Plan Next Note Type Treatment Note Next Visit Plan Gait training, balance training, LE strengthening, functional mobility.
--- NOTE | 2021-04-08 10:31 | PT.OTN ---
Current Diagnoses Cerebral infarction, unspecified (04/08/21) Muscle weakness (generalized) (04/08/21) Other abnormalities of gait and mobility (04/08/21) Repeated falls (04/08/21) Other symptoms and signs involving the musculoskeletal system (04/08/21) Physical Therapy Treatment Note PT-OP-A Visit Information Start: 03/13/21 14:33 Freq: Status: Active Protocol: Document 04/08/21 09:45 DCW (Rec: 04/08/21 10:30 DCW [id number]) Out-Patient Physical Therapy Visit Information Visit Information Visit Type Treatment Note Visit Start Time 09:45 Visit Stop Time 10:30 Total Visit Minutes 45 Visit Number 6 Number of GREY PERCHER Visits 0 Evaluation Information Evaluation Date 03/13/21 PT-OP-B Current Condition Start: 03/13/21 14:33 Freq: Status: Active Protocol: Document 03/13/21 12:00 DCW (Rec: 03/13/21 15:08 DCW [id number]) Current Condition History of Current Condition Onset Date 12/16/20 Current Complaints Hemiparesis, weakness, gait difficulty, decreased balance History of Current Condition Pt is a 65 year old female presenting three months s/p thalamic CVA. Pt presented to ED on 12/16/20 with sudden onset of left-sided weakness when waking up early in the AM to go to the bathroom. Pt noticed she could not more her left arm, tried to stand up, and fell over when her left leg was also unable to support her. The day after hospitalization, pt was transferred to [facility] for intensive rehab, notes she underwent 2.5 hours of PT/OT each day. Pt remained there for one months, and was then discharged home on January 13 with [facility], and since that time has been undergoing PT 2x/week and OT 3x/week, and was discharged from both disciplines earlier this week. Pt reports her left arm function is her biggest concern, and has been referred to outpatient OT for this, but also has difficulty with gait and balance. Pt wears an AFO on her left foot due to foot drop, and walks with a SPC. Admits she has had a few falls, but her balance has been a bit better since she left [facility] and has been slightly more stable at home. Treatment Goals Patient/Caregiver Goals I want to get back to normal function. I want to be able to walk independently without the cane, and use my arms like before. Really, I want to be able to live without depending on anyone, I was so independent before. PT-OP-C Subjective Start: 03/13/21 14:33 Freq: Status: Active Protocol: Document 04/08/21 09:45 DCW (Rec: 04/08/21 10:30 DCW [id number]) OP-PT Subjective Patient Comments Patient Comments Pt reports her back is doing better today. PT-OP-D Balance Start: 03/13/21 14:33 Freq: Status: Active Protocol: Document 03/13/21 12:00 DCW (Rec: 03/13/21 15:08 DCW [id number]) Balance Tests Hogan Balance Test Hogan Balance Test Score 41/56 Hogan Impairment Rating 20 to 39% Impaired (Score 34- 44) Single Limb Standing Single Limb- Right 9 seconds Single Limb- Left 2 seconds Hogan Balance Assessment Evaluation Sitting to Standing Ability Independent w/out Hands Unsupported Stance Safely- 2 minutes Sitting Unsupported, Feet on Floor Safely- 2 minutes Standing to Sitting Ability Assist, Control w/Hands Transfer Ability Safely, Minimal Hand Use Unsupported Stance- Eyes Closed Supervision, 10 seconds Unsupported Stance- Eyes Open Supervision to maintain Reaching Forward Standing Safely, 5 inches Pick- Up Object From Floor Supervision Look Behind Shoulder - Standing Shifts Weight Unilateral Turning 360 Degrees Turns slowly, but safely Unsupported Stance, Alternating Feet on 4 Steps w/Supervision Stair Unsupported Tandem Stance Small Step- 30 seconds Unilateral Leg Stance Lifts Leg/Unable to Hold Total Score Hogan Total Score (out of 56 points) 41 Hogan Impairment Rating 20 to 39% Impaired (Score 34- 44) PT-OP-E Functional Tests Start: 03/13/21 14:33 Freq: Status: Active Protocol: Document 03/13/21 12:00 DCW (Rec: 03/13/21 15:08 DCW [id number]) Functional Tests 6 Minute Walk Test Distance 686' Device Used [facility] Comments 1.91 ft/sec Timed Up and Go (TUG) Score 13.73 Comments 3-trial average (14.69,13.11 , 13.40) using SPC TUG Impairment Rating 40 to <60% Impaired (Score 14- 15) PT-OP-M Strength Start: 03/13/21 14:33 Freq: Status: Active Protocol: Document 03/13/21 12:00 DCW (Rec: 03/13/21 15:08 DCW [id number]) Hip Strength Hip Manual Muscle Testing Right Flexion (L2) 4+ Good+ Abduction 4 Good Adduction 4+ Good+ External Rotation 4+ Good+ Internal Rotation 4+ Good+ Left Flexion (L2) 3 Fair Abduction 3+ Fair+ Adduction 4 Good External Rotation 3- Fair- Internal Rotation 2 Poor Knee Strength Knee Manual Muscle Testing Right Flexion (S2) 5 Normal Extension (L3) 5 Normal Left Flexion (S2) 2+ Poor+ Extension (L3) 2- Poor- Ankle/Foot Strength Ankle and Foot Manual Muscle Testing Left Dorsiflexion (L4) 2- Poor- Plantarflexion (S1) 3 Fair PT-OP-Q Treatments Start: 03/13/21 14:33 Freq: Status: Active Protocol: Document 04/08/21 09:45 DCW (Rec: 04/08/21 10:30 DCW [id number]) Cardio Equipment Recumbent Elliptical (Biodex) Duration (Minutes) 5 Resistance 3 Seat Position 1 Gym Equipment Shuttle Recovery Bilateral Squats Resistance 62# Shuttle Recovery Platform Unstable Unilateral Squats Details Left Resistance 25# Shuttle Recovery Platform Stable Shuttle Balance Red Details WBOS (EO/EC) Therapeutic Exercises Standing Exercises 4 Standing Exercise Name Standing Marching Side bilateral Resistance 4# 3 Standing Exercise Name Hamstring Curls Side bilateral Resistance 4# 2 Standing Exercise Name Hip Extension Side bilateral Resistance Yellow Equipment Used T-band 1 Standing Exercise Name Hip Abduction Side bilateral Resistance Yellow Equipment Used T-band Neuro Re-Education Treatment Balance Activities 3 Details Tandem Stance PT-OP-R Modalities Start: 03/13/21 14:33 Freq: Status: Active Protocol: Document 04/08/21 09:45 DCW (Rec: 04/08/21 10:30 DCW [id number]) Electric Stimulation Electric Stimulation Romanian Stimulation Body Location Left Anterior Tib Duration (Minutes) 10 Intensity 41 Patient Position Sitting Comments 5 on, 5 off PT-OP-T Assessment and Plan Start: 03/13/21 14:33 Freq: Status: Active Protocol: Document 04/08/21 09:45 DCW (Rec: 04/08/21 10:30 DCW [id number]) Physical Therapy Assessment Impairments Impairments Activity Tolerance,Balance, Functional Activities, Functional Mobility,Gait,ROM, Soft Tissue Mobility,Strength, Transfers Other Concerns Fall Risk Increased falls risk per Hogan (41/56) and TUG (13.73) scores Goals Three Impairment Pt completes 6MWT with an average speed of 1.91 ft/sec Asset Protection Greeter Goal (LTG) Pt to complete 6MWT with an average speed of at least 2.4 ft/sec for a total distance > 864' to show decreased risk of functional decline LTG Duration 05/14/21 Two Impairment Increased falls risk per Hogan (41/56) and TUG (13.73) scores Shelter Goal (LTG) Pt to increase Hogan score by at least 5 points to 46/56 to demonstrate decreased falls risk LTG Duration 05/14/21 One Impairment Pt does not have an appropriate home exercise program Short Term Goal (STG) Pt to be independent and compliant with an appropriate HEP STG Duration 04/13/21 Assessment Summary Assessment Pt did well today with her first time on the Shuttle Balance, showing mild improvement with dorsiflexors and toe extension. Physical Therapy Plan Frequency and Duration Frequency of Treatment 2x/Week Duration of Treatment Two months Plan of Care Start Date 03/13/21 Plan of Care End Date 05/14/21 Therapeutic Interventions Therapeutic Interventions Aquatic Therapy,Balance Training,Gait Training,Home Exercise Program,Manual Therapy,Neuromuscular Re- education,Patient/Caregiver Education,Self-Care/Home Management,Soft Tissue Mobilization,Therapeutic Exercises Modalities Cold Pack/Ice Massage,Electric Stimulation,Hot Packs Next Visit Focus/Plan Next Note Type Treatment Note Next Visit Plan Gait training, balance training, LE strengthening, functional mobility.
--- NOTE | 2021-04-15 10:32 | PT.OTN ---
Current Diagnoses Cerebral infarction, unspecified (04/15/21) Muscle weakness (generalized) (04/15/21) Other abnormalities of gait and mobility (04/15/21) Repeated falls (04/15/21) Other symptoms and signs involving the musculoskeletal system (04/15/21) Physical Therapy Treatment Note PT-OP-A Visit Information Start: 03/13/21 14:33 Freq: Status: Active Protocol: Document 04/15/21 09:50 DCW (Rec: 04/15/21 10:31 DCW [id number]) Out-Patient Physical Therapy Visit Information Visit Information Visit Type Treatment Note Visit Start Time 09:50 Visit Stop Time 10:30 Total Visit Minutes 40 Visit Number 7 Number of TECHNOLOGY ANALYST Visits 0 Evaluation Information Evaluation Date 03/13/21 PT-OP-B Current Condition Start: 03/13/21 14:33 Freq: Status: Active Protocol: Document 03/13/21 12:00 DCW (Rec: 03/13/21 15:08 DCW [id number]) Current Condition History of Current Condition Onset Date 12/16/20 Current Complaints Hemiparesis, weakness, gait difficulty, decreased balance History of Current Condition Pt is a 65 year old female presenting three months s/p thalamic CVA. Pt presented to ED on 12/16/20 with sudden onset of left-sided weakness when waking up early in the AM to go to the bathroom. Pt noticed she could not more her left arm, tried to stand up, and fell over when her left leg was also unable to support her. The day after hospitalization, pt was transferred to [facility] for intensive rehab, notes she underwent 2.5 hours of PT/OT each day. Pt remained there for one months, and was then discharged home on January 13 with [facility], and since that time has been undergoing PT 2x/week and OT 3x/week, and was discharged from both disciplines earlier this week. Pt reports her left arm function is her biggest concern, and has been referred to outpatient OT for this, but also has difficulty with gait and balance. Pt wears an AFO on her left foot due to foot drop, and walks with a SPC. Admits she has had a few falls, but her balance has been a bit better since she left [facility] and has been slightly more stable at home. Treatment Goals Patient/Caregiver Goals I want to get back to normal function. I want to be able to walk independently without the cane, and use my arms like before. Really, I want to be able to live without depending on anyone, I was so independent before. PT-OP-C Subjective Start: 03/13/21 14:33 Freq: Status: Active Protocol: Document 04/15/21 09:50 DCW (Rec: 04/15/21 10:31 DCW [id number]) OP-PT Subjective Patient Comments Patient Comments Recovery is just so slow. PT-OP-D Balance Start: 03/13/21 14:33 Freq: Status: Active Protocol: Document 03/13/21 12:00 DCW (Rec: 03/13/21 15:08 DCW [id number]) Balance Tests Hogan Balance Test Hogan Balance Test Score 41/56 Hogan Impairment Rating 20 to 39% Impaired (Score 34- 44) Single Limb Standing Single Limb- Right 9 seconds Single Limb- Left 2 seconds Hogan Balance Assessment Evaluation Sitting to Standing Ability Independent w/out Hands Unsupported Stance Safely- 2 minutes Sitting Unsupported, Feet on Floor Safely- 2 minutes Standing to Sitting Ability Assist, Control w/Hands Transfer Ability Safely, Minimal Hand Use Unsupported Stance- Eyes Closed Supervision, 10 seconds Unsupported Stance- Eyes Open Supervision to maintain Reaching Forward Standing Safely, 5 inches Pick- Up Object From Floor Supervision Look Behind Shoulder - Standing Shifts Weight Unilateral Turning 360 Degrees Turns slowly, but safely Unsupported Stance, Alternating Feet on 4 Steps w/Supervision Stair Unsupported Tandem Stance Small Step- 30 seconds Unilateral Leg Stance Lifts Leg/Unable to Hold Total Score Hogan Total Score (out of 56 points) 41 Hogan Impairment Rating 20 to 39% Impaired (Score 34- 44) PT-OP-E Functional Tests Start: 03/13/21 14:33 Freq: Status: Active Protocol: Document 03/13/21 12:00 DCW (Rec: 03/13/21 15:08 DCW [id number]) Functional Tests 6 Minute Walk Test Distance 686' Device Used [facility] [place] 1.91 ft/sec Timed Up and Go (TUG) Score 13.73 Comments 3-trial average (14.69,13.11 , 13.40) using SPC TUG Impairment Rating 40 to <60% Impaired (Score 14- 15) PT-OP-M Strength Start: 03/13/21 14:33 Freq: Status: Active Protocol: Document 03/13/21 12:00 DCW (Rec: 03/13/21 15:08 DCW [id number]) Hip Strength Hip Manual Muscle Testing Right Flexion (L2) 4+ Good+ Abduction 4 Good Adduction 4+ Good+ External Rotation 4+ Good+ Internal Rotation 4+ Good+ Left Flexion (L2) 3 Fair Abduction 3+ Fair+ Adduction 4 Good External Rotation 3- Fair- Internal Rotation 2 Poor Knee Strength Knee Manual Muscle Testing Right Flexion (S2) 5 Normal Extension (L3) 5 Normal Left Flexion (S2) 2+ Poor+ Extension (L3) 2- Poor- Ankle/Foot Strength Ankle and Foot Manual Muscle Testing Left Dorsiflexion (L4) 2- Poor- Plantarflexion (S1) 3 Fair PT-OP-Q Treatments Start: 03/13/21 14:33 Freq: Status: Active Protocol: Document 04/15/21 09:50 DCW (Rec: 04/15/21 10:31 DCW [id number]) Cardio Equipment Recumbent Elliptical ([employer]) Duration (Minutes) 5 Resistance 4 Seat Position 1 Gym Equipment Shuttle Recovery Bilateral Squats Resistance 62# Shuttle Recovery Platform Unstable Unilateral Squats Details Left Resistance 25# Shuttle Recovery Platform Stable Therapeutic Exercises Sitting Exercises 3 Sitting Exercise Name HS curls Side left Resistance Lv 1 Equipment Used T-band 2 Sitting Exercise Name Hip Abduction Side bilateral Resistance Lv 2 Equipment Used T-band Standing Exercises 3 Standing Exercise Name Hamstring Curls Side bilateral 2 Standing Exercise Name Hip Extension Side bilateral Resistance Yellow Equipment Used T-band PT-OP-R Modalities Start: 03/13/21 14:33 Freq: Status: Active Protocol: Document 04/15/21 09:50 DCW (Rec: 04/15/21 10:31 DCW [id number]) Electric Stimulation Electric Stimulation Burkinan Stimulation Body Location Left Anterior Tib Duration (Minutes) 10 Intensity 44 Patient Position Sitting Comments 5 on, 5 off PT-OP-T Assessment and Plan Start: 03/13/21 14:33 Freq: Status: Active Protocol: Document 04/15/21 09:50 DCW (Rec: 04/15/21 10:31 DCW [id number]) Physical Therapy Assessment Impairments Impairments Activity Tolerance,Balance, Functional Activities, Functional Mobility,Gait,ROM, Soft Tissue Mobility,Strength, Transfers Other Concerns Fall Risk Increased falls risk per Hogan (41/56) and TUG (13.73) scores Goals Three Impairment Pt completes 6MWT with an average speed of 1.91 ft/sec Residential Goal (LTG) Pt to complete 6MWT with an average speed of at least 2.4 ft/sec for a total distance > 864' to show decreased risk of functional decline LTG Duration 05/14/21 Two Impairment Increased falls risk per Hogan (41/56) and TUG (13.73) scores Residential Goal (LTG) Pt to increase Hogan score by at least 5 points to 46/56 to demonstrate decreased falls risk LTG Duration 05/14/21 One Impairment Pt does not have an appropriate home exercise program Short Term Goal (STG) Pt to be independent and compliant with an appropriate HEP STG Duration 04/13/21 Assessment Summary Assessment Pt motivated to work more with HEP, was requesting ideas for home, instructed in standing hip abd, ext, and hamstring curls Physical Therapy Plan Frequency and Duration Frequency of Treatment 2x/Week Duration of Treatment Two months Plan of Care Start Date 03/13/21 Plan of Care End Date 05/14/21 Therapeutic Interventions Therapeutic Interventions Aquatic Therapy,Balance Training,Gait Training,Home Exercise Program,Manual Therapy,Neuromuscular Re- education,Patient/Caregiver Education,Self-Care/Home Management,Soft Tissue Mobilization,Therapeutic Exercises Modalities Cold Pack/Ice Massage,Electric Stimulation,Hot Packs Next Visit Focus/Plan Next Note Type Treatment Note Next Visit Plan Gait training, balance training, LE strengthening, functional mobility.
--- NOTE | 2021-04-17 10:35 | PT.OTN ---
Current Diagnoses Cerebral infarction, unspecified (04/17/21) Muscle weakness (generalized) (04/17/21) Other abnormalities of gait and mobility (04/17/21) Repeated falls (04/17/21) Other symptoms and signs involving the musculoskeletal system (04/17/21) Physical Therapy Treatment Note PT-OP-A Visit Information Start: 03/13/21 14:33 Freq: Status: Active Protocol: Document 04/17/21 09:45 DCW (Rec: 04/17/21 10:35 DCW [id number]) Out-Patient Physical Therapy Visit Information Visit Information Visit Type Treatment Note Visit Start Time 09:45 Visit Stop Time 10:30 Total Visit Minutes 45 Visit Number 8 Number of E M ASSEMBLER Visits 0 Evaluation Information Evaluation Date 03/13/21 PT-OP-B Current Condition Start: 03/13/21 14:33 Freq: Status: Active Protocol: Document 03/13/21 12:00 DCW (Rec: 03/13/21 15:08 DCW [id number]) Current Condition History of Current Condition Onset Date 12/16/20 Current Complaints Hemiparesis, weakness, gait difficulty, decreased balance History of Current Condition Pt is a 65 year old female presenting three months s/p thalamic CVA. Pt presented to ED on 12/16/20 with sudden onset of left-sided weakness when waking up early in the AM to go to the bathroom. Pt noticed she could not more her left arm, tried to stand up, and fell over when her left leg was also unable to support her. The day after hospitalization, pt was transferred to [facility] for intensive rehab, notes she underwent 2.5 hours of PT/OT each day. Pt remained there for one months, and was then discharged home on January 13 with [facility], and since that time has been undergoing PT 2x/week and OT 3x/week, and was discharged from both disciplines earlier this week. Pt reports her left arm function is her biggest concern, and has been referred to outpatient OT for this, but also has difficulty with gait and balance. Pt wears an AFO on her left foot due to foot drop, and walks with a SPC. Admits she has had a few falls, but her balance has been a bit better since she left [facility] and has been slightly more stable at home. Treatment Goals Patient/Caregiver Goals I want to get back to normal function. I want to be able to walk independently without the cane, and use my arms like before. Really, I want to be able to live without depending on anyone, I was so independent before. PT-OP-C Subjective Start: 03/13/21 14:33 Freq: Status: Active Protocol: Document 04/15/21 09:50 DCW (Rec: 04/15/21 10:31 DCW [id number]) OP-PT Subjective Patient Comments Patient Comments Recovery is just so slow. PT-OP-D Balance Start: 03/13/21 14:33 Freq: Status: Active Protocol: Document 03/13/21 12:00 DCW (Rec: 03/13/21 15:08 DCW [id number]) Balance Tests Hogan Balance Test Hogan Balance Test Score 41/56 Hogan Impairment Rating 20 to 39% Impaired (Score 34- 44) Single Limb Standing Single Limb- Right 9 seconds Single Limb- Left 2 seconds Hogan Balance Assessment Evaluation Sitting to Standing Ability Independent w/out Hands Unsupported Stance Safely- 2 minutes Sitting Unsupported, Feet on Floor Safely- 2 minutes Standing to Sitting Ability Assist, Control w/Hands Transfer Ability Safely, Minimal Hand Use Unsupported Stance- Eyes Closed Supervision, 10 seconds Unsupported Stance- Eyes Open Supervision to maintain Reaching Forward Standing Safely, 5 inches Pick- Up Object From Floor Supervision Look Behind Shoulder - Standing Shifts Weight Unilateral Turning 360 Degrees Turns slowly, but safely Unsupported Stance, Alternating Feet on 4 Steps w/Supervision Stair Unsupported Tandem Stance Small Step- 30 seconds Unilateral Leg Stance Lifts Leg/Unable to Hold Total Score Hogan Total Score (out of 56 points) 41 Hogan Impairment Rating 20 to 39% Impaired (Score 34- 44) PT-OP-E Functional Tests Start: 03/13/21 14:33 Freq: Status: Active Protocol: Document 03/13/21 12:00 DCW (Rec: 03/13/21 15:08 DCW [id number]) Functional Tests 6 Minute Walk Test Distance 686' Device Used [facility] [place] Comments 1.91 ft/sec Timed Up and Go (TUG) Score 13.73 Comments 3-trial average (14.69,13.11 , 13.40) using SPC TUG Impairment Rating 40 to <60% Impaired (Score 14- 15) PT-OP-M Strength Start: 03/13/21 14:33 Freq: Status: Active Protocol: Document 03/13/21 12:00 DCW (Rec: 03/13/21 15:08 DCW [id number]) Hip Strength Hip Manual Muscle Testing Right Flexion (L2) 4+ Good+ Abduction 4 Good Adduction 4+ Good+ External Rotation 4+ Good+ Internal Rotation 4+ Good+ Left Flexion (L2) 3 Fair Abduction 3+ Fair+ Adduction 4 Good External Rotation 3- Fair- Internal Rotation 2 Poor Knee Strength Knee Manual Muscle Testing Right Flexion (S2) 5 Normal Extension (L3) 5 Normal Left Flexion (S2) 2+ Poor+ Extension (L3) 2- Poor- Ankle/Foot Strength Ankle and Foot Manual Muscle Testing Left Dorsiflexion (L4) 2- Poor- Plantarflexion (S1) 3 Fair PT-OP-Q Treatments Start: 03/13/21 14:33 Freq: Status: Active Protocol: Document 04/17/21 09:45 DCW (Rec: 04/17/21 10:35 DCW [id number]) Cardio Equipment Recumbent Stepper (Sci-Fit) Duration (Minutes) 5 Resistance 4 Seat Position 6 Gym Equipment Shuttle Recovery Bilateral Squats Resistance 62# Shuttle Recovery Platform Unstable Unilateral Squats Details Left Resistance 25# Shuttle Recovery Platform Stable Shuttle Balance Red Details WBOS (EO/EC) Therapeutic Exercises Sitting Exercises 3 Sitting Exercise Name HS curls Side left Resistance Lv 2 Equipment Used T-band 2 Sitting Exercise Name Hip Abduction Side bilateral Resistance Lv 2 Equipment Used T-band 1 Sitting Exercise Name LAQ Side left Resistance 4# PT-OP-R Modalities Start: 03/13/21 14:33 Freq: Status: Active Protocol: Document 04/17/21 09:45 DCW (Rec: 04/17/21 10:35 DCW [id number]) Electric Stimulation Electric Stimulation Greek Stimulation Body Location Left Anterior Tib Duration (Minutes) 10 Intensity 45 Patient Position Sitting Comments 5 on, 5 off PT-OP-T Assessment and Plan Start: 03/13/21 14:33 Freq: Status: Active Protocol: Document 04/17/21 09:45 DCW (Rec: 04/17/21 10:35 DCW [id number]) Physical Therapy Assessment Impairments Impairments Activity Tolerance,Balance, Functional Activities, Functional Mobility,Gait,ROM, Soft Tissue Mobility,Strength, Transfers Other Concerns Fall Risk Increased falls risk per Hogan (41/56) and TUG (13.73) scores Goals Three Impairment Pt completes 6MWT with an average speed of 1.91 ft/sec Fryer Line Helper Goal (LTG) Pt to complete 6MWT with an average speed of at least 2.4 ft/sec for a total distance > 864' to show decreased risk of functional decline LTG Duration 05/14/21 Two Impairment Increased falls risk per Hogan (41/56) and TUG (13.73) scores Fryer Line Helper Goal (LTG) Pt to increase Hogan score by at least 5 points to 46/56 to demonstrate decreased falls risk LTG Duration 05/14/21 One Impairment Pt does not have an appropriate home exercise program Short Term Goal (STG) Pt to be independent and compliant with an appropriate HEP STG Duration 04/13/21 Assessment Summary Assessment Pt still frustrated with rate of recovery, tends to have unrealistic expectations, wants assurances that she will get to stop using AFO. Physical Therapy Plan Frequency and Duration Frequency of Treatment 2x/Week Duration of Treatment Two months Plan of Care Start Date 03/13/21 Plan of Care End Date 05/14/21 Therapeutic Interventions Therapeutic Interventions Aquatic Therapy,Balance Training,Gait Training,Home Exercise Program,Manual Therapy,Neuromuscular Re- education,Patient/Caregiver Education,Self-Care/Home Management,Soft Tissue Mobilization,Therapeutic Exercises Modalities Cold Pack/Ice Massage,Electric Stimulation,Hot Packs Next Visit Focus/Plan Next Note Type Treatment Note Next Visit Plan Gait training, balance training, LE strengthening, functional mobility.
--- NOTE | 2021-04-17 10:37 | PT.OTN ---
Current Diagnoses Cerebral infarction, unspecified (04/17/21) Muscle weakness (generalized) (04/17/21) Other abnormalities of gait and mobility (04/17/21) Repeated falls (04/17/21) Other symptoms and signs involving the musculoskeletal system (04/17/21) Physical Therapy Treatment Note PT-OP-A Visit Information Start: 03/13/21 14:33 Freq: Status: Active Protocol: Document 04/17/21 09:45 DCW (Rec: 04/17/21 10:35 DCW [id number]) Out-Patient Physical Therapy Visit Information Visit Information Visit Type Treatment Note Visit Start Time 09:45 Visit Stop Time 10:30 Total Visit Minutes 45 Visit Number 8 Number of PROCESS ENG Visits 0 Evaluation Information Evaluation Date 03/13/21 PT-OP-B Current Condition Start: 03/13/21 14:33 Freq: Status: Active Protocol: Document 03/13/21 12:00 DCW (Rec: 03/13/21 15:08 DCW [id number]) Current Condition History of Current Condition Onset Date 12/16/20 Current Complaints Hemiparesis, weakness, gait difficulty, decreased balance History of Current Condition Pt is a 65 year old female presenting three months s/p thalamic CVA. Pt presented to ED on 12/16/20 with sudden onset of left-sided weakness when waking up early in the AM to go to the bathroom. Pt noticed she could not more her left arm, tried to stand up, and fell over when her left leg was also unable to support her. The day after hospitalization, pt was transferred to [facility] for intensive rehab, notes she underwent 2.5 hours of PT/OT each day. Pt remained there for one months, and was then discharged home on January 13 with [facility], and since that time has been undergoing PT 2x/week and OT 3x/week, and was discharged from both disciplines earlier this week. Pt reports her left arm function is her biggest concern, and has been referred to outpatient OT for this, but also has difficulty with gait and balance. Pt wears an AFO on her left foot due to foot drop, and walks with a SPC. Admits she has had a few falls, but her balance has been a bit better since she left [facility] and has been slightly more stable at home. Treatment Goals Patient/Caregiver Goals I want to get back to normal function. I want to be able to walk independently without the cane, and use my arms like before. Really, I want to be able to live without depending on anyone, I was so independent before. PT-OP-C Subjective Start: 03/13/21 14:33 Freq: Status: Active Protocol: Document 04/17/21 09:45 DCW (Rec: 04/17/21 10:37 DCW [id number]) OP-PT Subjective Patient Comments Patient Comments Pt reports she will be taking her grandkids [id number] shopping this weekend PT-OP-D Balance Start: 03/13/21 14:33 Freq: Status: Active Protocol: Document 03/13/21 12:00 DCW (Rec: 03/13/21 15:08 DCW [id number]) Balance Tests Hogan Balance Test Hogan Balance Test Score 41/56 Hogan Impairment Rating 20 to 39% Impaired (Score 34- 44) Single Limb Standing Single Limb- Right 9 seconds Single Limb- Left 2 seconds Hogan Balance Assessment Evaluation Sitting to Standing Ability Independent w/out Hands Unsupported Stance Safely- 2 minutes Sitting Unsupported, Feet on Floor Safely- 2 minutes Standing to Sitting Ability Assist, Control w/Hands Transfer Ability Safely, Minimal Hand Use Unsupported Stance- Eyes Closed Supervision, 10 seconds Unsupported Stance- Eyes Open Supervision to maintain Reaching Forward Standing Safely, 5 inches Pick- Up Object From Floor Supervision Look Behind Shoulder - Standing Shifts Weight Unilateral Turning 360 Degrees Turns slowly, but safely Unsupported Stance, Alternating Feet on 4 Steps w/Supervision Stair Unsupported Tandem Stance Small Step- 30 seconds Unilateral Leg Stance Lifts Leg/Unable to Hold Total Score Hogan Total Score (out of 56 points) 41 Hogan Impairment Rating 20 to 39% Impaired (Score 34- 44) PT-OP-E Functional Tests Start: 03/13/21 14:33 Freq: Status: Active Protocol: Document 03/13/21 12:00 DCW (Rec: 03/13/21 15:08 DCW [id number]) Functional Tests 6 Minute Walk Test Distance 686' Device Used [facility] Comments 1.91 ft/sec Timed Up and Go (TUG) Score 13.73 Comments 3-trial average (14.69,13.11 , 13.40) using SPC TUG Impairment Rating 40 to <60% Impaired (Score 14- 15) PT-OP-M Strength Start: 03/13/21 14:33 Freq: Status: Active Protocol: Document 03/13/21 12:00 DCW (Rec: 03/13/21 15:08 DCW [id number]) Hip Strength Hip Manual Muscle Testing Right Flexion (L2) 4+ Good+ Abduction 4 Good Adduction 4+ Good+ External Rotation 4+ Good+ Internal Rotation 4+ Good+ Left Flexion (L2) 3 Fair Abduction 3+ Fair+ Adduction 4 Good External Rotation 3- Fair- Internal Rotation 2 Poor Knee Strength Knee Manual Muscle Testing Right Flexion (S2) 5 Normal Extension (L3) 5 Normal Left Flexion (S2) 2+ Poor+ Extension (L3) 2- Poor- Ankle/Foot Strength Ankle and Foot Manual Muscle Testing Left Dorsiflexion (L4) 2- Poor- Plantarflexion (S1) 3 Fair PT-OP-Q Treatments Start: 03/13/21 14:33 Freq: Status: Active Protocol: Document 04/17/21 09:45 DCW (Rec: 04/17/21 10:35 DCW [id number]) Cardio Equipment Recumbent Stepper (Sci-Fit) Duration (Minutes) 5 Resistance 4 Seat Position 6 Gym Equipment Shuttle Recovery Bilateral Squats Resistance 62# Shuttle Recovery Platform Unstable Unilateral Squats Details Left Resistance 25# Shuttle Recovery Platform Stable Shuttle Balance Red Details WBOS (EO/EC) Therapeutic Exercises Sitting Exercises 3 Sitting Exercise Name HS curls Side left Resistance Lv 2 Equipment Used T-band 2 Sitting Exercise Name Hip Abduction Side bilateral Resistance Lv 2 Equipment Used T-band 1 Sitting Exercise Name LAQ Side left Resistance 4# PT-OP-R Modalities Start: 03/13/21 14:33 Freq: Status: Active Protocol: Document 04/17/21 09:45 DCW (Rec: 04/17/21 10:35 DCW [id number]) Electric Stimulation Electric Stimulation Nigerian Stimulation Body Location Left Anterior Tib Duration (Minutes) 10 Intensity 45 Patient Position Sitting Comments 5 on, 5 off PT-OP-T Assessment and Plan Start: 03/13/21 14:33 Freq: Status: Active Protocol: Document 04/17/21 09:45 DCW (Rec: 04/17/21 10:35 DCW [id number]) Physical Therapy Assessment Impairments Impairments Activity Tolerance,Balance, Functional Activities, Functional Mobility,Gait,ROM, Soft Tissue Mobility,Strength, Transfers Other Concerns Fall Risk Increased falls risk per Hogan (41/56) and TUG (13.73) scores Goals Three Impairment Pt completes 6MWT with an average speed of 1.91 ft/sec Polisher Balance Screwhead Goal (LTG) Pt to complete 6MWT with an average speed of at least 2.4 ft/sec for a total distance > 864' to show decreased risk of functional decline LTG Duration 05/14/21 Two Impairment Increased falls risk per Hogan (41/56) and TUG (13.73) scores Polisher Balance Screwhead Goal (LTG) Pt to increase Hogan score by at least 5 points to 46/56 to demonstrate decreased falls risk LTG Duration 05/14/21 One Impairment Pt does not have an appropriate home exercise program Short Term Goal (STG) Pt to be independent and compliant with an appropriate HEP STG Duration 04/13/21 Assessment Summary Assessment Pt still frustrated with rate of recovery, tends to have unrealistic expectations, wants assurances that she will get to stop using AFO. Physical Therapy Plan Frequency and Duration Frequency of Treatment 2x/Week Duration of Treatment Two months Plan of Care Start Date 03/13/21 Plan of Care End Date 05/14/21 Therapeutic Interventions Therapeutic Interventions Aquatic Therapy,Balance Training,Gait Training,Home Exercise Program,Manual Therapy,Neuromuscular Re- education,Patient/Caregiver Education,Self-Care/Home Management,Soft Tissue Mobilization,Therapeutic Exercises Modalities Cold Pack/Ice Massage,Electric Stimulation,Hot Packs Next Visit Focus/Plan Next Note Type Treatment Note Next Visit Plan Gait training, balance training, LE strengthening, functional mobility.
--- NOTE | 2021-04-20 10:29 | PT.OTN ---
Current Diagnoses Cerebral infarction, unspecified (04/20/21) Muscle weakness (generalized) (04/20/21) Other abnormalities of gait and mobility (04/20/21) Repeated falls (04/20/21) Other symptoms and signs involving the musculoskeletal system (04/20/21) Physical Therapy Treatment Note PT-OP-A Visit Information Start: 03/13/21 14:33 Freq: Status: Active Protocol: Document 04/20/21 09:45 DCW (Rec: 04/20/21 10:29 DCW [id number]) Out-Patient Physical Therapy Visit Information Visit Information Visit Type Treatment Note Visit Start Time 09:45 Visit Stop Time 10:30 Total Visit Minutes 45 Visit Number 9 Number of CUSTOMER SERVICE CLERK Visits 0 Evaluation Information Evaluation Date 03/13/21 PT-OP-B Current Condition Start: 03/13/21 14:33 Freq: Status: Active Protocol: Document 03/13/21 12:00 DCW (Rec: 03/13/21 15:08 DCW [id number]) Current Condition History of Current Condition Onset Date 12/16/20 Current Complaints Hemiparesis, weakness, gait difficulty, decreased balance History of Current Condition Pt is a 65 year old female presenting three months s/p thalamic CVA. Pt presented to ED on 12/16/20 with sudden onset of left-sided weakness when waking up early in the AM to go to the bathroom. Pt noticed she could not more her left arm, tried to stand up, and fell over when her left leg was also unable to support her. The day after hospitalization, pt was transferred to [facility] for intensive rehab, notes she underwent 2.5 hours of PT/OT each day. Pt remained there for one months, and was then discharged home on January 13 with [facility], and since that time has been undergoing PT 2x/week and OT 3x/week, and was discharged from both disciplines earlier this week. Pt reports her left arm function is her biggest concern, and has been referred to outpatient OT for this, but also has difficulty with gait and balance. Pt wears an AFO on her left foot due to foot drop, and walks with a SPC. Admits she has had a few falls, but her balance has been a bit better since she left [facility] and has been slightly more stable at home. Treatment Goals Patient/Caregiver Goals I want to get back to normal function. I want to be able to walk independently without the cane, and use my arms like before. Really, I want to be able to live without depending on anyone, I was so independent before. PT-OP-C Subjective Start: 03/13/21 14:33 Freq: Status: Active Protocol: Document 04/20/21 09:45 DCW (Rec: 04/20/21 10:29 DCW [id number]) OP-PT Subjective Patient Comments Patient Comments Pt notes she is doing well today, didn't do much this weekend. PT-OP-D Balance Start: 03/13/21 14:33 Freq: Status: Active Protocol: Document 03/13/21 12:00 DCW (Rec: 03/13/21 15:08 DCW [id number]) Balance Tests Hogan Balance Test Hogan Balance Test Score 41/56 Hogan Impairment Rating 20 to 39% Impaired (Score 34- 44) Single Limb Standing Single Limb- Right 9 seconds Single Limb- Left 2 seconds Hogan Balance Assessment Evaluation Sitting to Standing Ability Independent w/out Hands Unsupported Stance Safely- 2 minutes Sitting Unsupported, Feet on Floor Safely- 2 minutes Standing to Sitting Ability Assist, Control w/Hands Transfer Ability Safely, Minimal Hand Use Unsupported Stance- Eyes Closed Supervision, 10 seconds Unsupported Stance- Eyes Open Supervision to maintain Reaching Forward Standing Safely, 5 inches Pick- Up Object From Floor Supervision Look Behind Shoulder - Standing Shifts Weight Unilateral Turning 360 Degrees Turns slowly, but safely Unsupported Stance, Alternating Feet on 4 Steps w/Supervision Stair Unsupported Tandem Stance Small Step- 30 seconds Unilateral Leg Stance Lifts Leg/Unable to Hold Total Score Hogan Total Score (out of 56 points) 41 Hogan Impairment Rating 20 to 39% Impaired (Score 34- 44) PT-OP-E Functional Tests Start: 03/13/21 14:33 Freq: Status: Active Protocol: Document 03/13/21 12:00 DCW (Rec: 03/13/21 15:08 DCW [id number]) Functional Tests 6 Minute Walk Test Distance 686' Device Used SPC Comments 1.91 ft/sec Timed Up and Go (TUG) Score 13.73 Comments 3-trial average (14.69,13.11 , 13.40) using SPC TUG Impairment Rating 40 to <60% Impaired (Score 14- 15) PT-OP-M Strength Start: 03/13/21 14:33 Freq: Status: Active Protocol: Document 03/13/21 12:00 DCW (Rec: 03/13/21 15:08 DCW [id number]) Hip Strength Hip Manual Muscle Testing Right Flexion (L2) 4+ Good+ Abduction 4 Good Adduction 4+ Good+ External Rotation 4+ Good+ Internal Rotation 4+ Good+ Left Flexion (L2) 3 Fair Abduction 3+ Fair+ Adduction 4 Good External Rotation 3- Fair- Internal Rotation 2 Poor Knee Strength Knee Manual Muscle Testing Right Flexion (S2) 5 Normal Extension (L3) 5 Normal Left Flexion (S2) 2+ Poor+ Extension (L3) 2- Poor- Ankle/Foot Strength Ankle and Foot Manual Muscle Testing Left Dorsiflexion (L4) 2- Poor- Plantarflexion (S1) 3 Fair PT-OP-Q Treatments Start: 03/13/21 14:33 Freq: Status: Active Protocol: Document 04/20/21 09:45 DCW (Rec: 04/20/21 10:29 DCW [id number]) Cardio Equipment Recumbent Elliptical (BiodTrashOut) Duration (Minutes) 5 Resistance 4 Seat Position 1 Gym Equipment Shuttle Recovery Bilateral Squats Resistance 62# Shuttle Recovery Platform Unstable Unilateral Squats Details Left Resistance 25# Shuttle Recovery Platform Stable Shuttle Balance Red Details WBOS (EO/EC) Therapeutic Exercises Sitting Exercises 3 Sitting Exercise Name HS curls Side left Resistance Lv 2 Equipment Used T-band 2 Sitting Exercise Name Hip Abduction Side bilateral Resistance Lv 2 Equipment Used T-band 1 Sitting Exercise Name LAQ Side left Resistance 5# Standing Exercises 2 Standing Exercise Name Hip Extension Side bilateral Resistance Yellow Equipment Used T-band 1 Standing Exercise Name Hip Abduction Side bilateral Resistance Yellow Equipment Used T-band PT-OP-R Modalities Start: 03/13/21 14:33 Freq: Status: Active Protocol: Document 04/20/21 09:45 DCW (Rec: 04/20/21 10:29 DCW [id number]) Electric Stimulation Electric Stimulation Ukrainian Stimulation Body Location Left Anterior Tib Duration (Minutes) 10 Intensity 45 Patient Position Sitting Comments 5 on, 5 off PT-OP-T Assessment and Plan Start: 03/13/21 14:33 Freq: Status: Active Protocol: Document 04/20/21 09:45 DCW (Rec: 04/20/21 10:29 DCW [id number]) Physical Therapy Assessment Impairments Impairments Activity Tolerance,Balance, Functional Activities, Functional Mobility,Gait,ROM, Soft Tissue Mobility,Strength, Transfers Other Concerns Fall Risk Increased falls risk per Hogan (41/56) and TUG (13.73) scores Goals Three Impairment Pt completes 6MWT with an average speed of 1.91 ft/sec Qlikview Developer Goal (LTG) Pt to complete 6MWT with an average speed of at least 2.4 ft/sec for a total distance > 864' to show decreased risk of functional decline LTG Duration 05/14/21 Two Impairment Increased falls risk per Hogan (41/56) and TUG (13.73) scores Qlikview Developer Goal (LTG) Pt to increase Hogan score by at least 5 points to 46/56 to demonstrate decreased falls risk LTG Duration 05/14/21 One Impairment Pt does not have an appropriate home exercise program Short Term Goal (STG) Pt to be independent and compliant with an appropriate HEP STG Duration 04/13/21 Assessment Summary Assessment Pt more optimistic today, showing some improvement in left quad function, improved quality of LAQs and leg press. Physical Therapy Plan Frequency and Duration Frequency of Treatment 2x/Week Duration of Treatment Two months Plan of Care Start Date 03/13/21 Plan of Care End Date 05/14/21 Therapeutic Interventions Therapeutic Interventions Aquatic Therapy,Balance Training,Gait Training,Home Exercise Program,Manual Therapy,Neuromuscular Re- education,Patient/Caregiver Education,Self-Care/Home Management,Soft Tissue Mobilization,Therapeutic Exercises Modalities Cold Pack/Ice Massage,Electric Stimulation,Hot Packs Next Visit Focus/Plan Next Note Type Treatment Note Next Visit Plan Gait training, balance training, LE strengthening, functional mobility.
--- NOTE | 2021-04-24 10:33 | PT.OTN ---
Current Diagnoses Cerebral infarction, unspecified (04/24/21) Muscle weakness (generalized) (04/24/21) Other abnormalities of gait and mobility (04/24/21) Repeated falls (04/24/21) Other symptoms and signs involving the musculoskeletal system (04/24/21) Physical Therapy Treatment Note PT-OP-A Visit Information Start: 03/13/21 14:33 Freq: Status: Active Protocol: Document 04/24/21 09:45 DCW (Rec: 04/24/21 10:33 DCW [id number]) Out-Patient Physical Therapy Visit Information Visit Information Visit Type Treatment Note Visit Start Time 09:45 Visit Stop Time 10:30 Total Visit Minutes 45 Visit Number 10 Number of SUPERVISOR PYROTECHNIC LOADING Visits 0 Evaluation Information Evaluation Date 03/13/21 PT-OP-B Current Condition Start: 03/13/21 14:33 Freq: Status: Active Protocol: Document 03/13/21 12:00 DCW (Rec: 03/13/21 15:08 DCW [id number]) Current Condition History of Current Condition Onset Date 12/16/20 Current Complaints Hemiparesis, weakness, gait difficulty, decreased balance History of Current Condition Pt is a 65 year old female presenting three months s/p thalamic CVA. Pt presented to ED on 12/16/20 with sudden onset of left-sided weakness when waking up early in the AM to go to the bathroom. Pt noticed she could not more her left arm, tried to stand up, and fell over when her left leg was also unable to support her. The day after hospitalization, pt was transferred to [facility] for intensive rehab, notes she underwent 2.5 hours of PT/OT each day. Pt remained there for one months, and was then discharged home on January 13 with [facility], and since that time has been undergoing PT 2x/week and OT 3x/week, and was discharged from both disciplines earlier this week. Pt reports her left arm function is her biggest concern, and has been referred to outpatient OT for this, but also has difficulty with gait and balance. Pt wears an AFO on her left foot due to foot drop, and walks with a SPC. Admits she has had a few falls, but her balance has been a bit better since she left [facility] and has been slightly more stable at home. Treatment Goals Patient/Caregiver Goals I want to get back to normal function. I want to be able to walk independently without the cane, and use my arms like before. Really, I want to be able to live without depending on anyone, I was so independent before. PT-OP-C Subjective Start: 03/13/21 14:33 Freq: Status: Active Protocol: Document 04/24/21 09:45 DCW (Rec: 04/24/21 10:33 DCW [id number]) OP-PT Subjective Patient Comments Patient Comments Pt reports her only concern is that she is recovering too slow. PT-OP-D Balance Start: 03/13/21 14:33 Freq: Status: Active Protocol: Document 03/13/21 12:00 DCW (Rec: 03/13/21 15:08 DCW [id number]) Balance Tests Hogan Balance Test Hogan Balance Test Score 41/56 Hogan Impairment Rating 20 to 39% Impaired (Score 34- 44) Single Limb Standing Single Limb- Right 9 seconds Single Limb- Left 2 seconds Hogan Balance Assessment Evaluation Sitting to Standing Ability Independent w/out Hands Unsupported Stance Safely- 2 minutes Sitting Unsupported, Feet on Floor Safely- 2 minutes Standing to Sitting Ability Assist, Control w/Hands Transfer Ability Safely, Minimal Hand Use Unsupported Stance- Eyes Closed Supervision, 10 seconds Unsupported Stance- Eyes Open Supervision to maintain Reaching Forward Standing Safely, 5 inches Pick- Up Object From Floor Supervision Look Behind Shoulder - Standing Shifts Weight Unilateral Turning 360 Degrees Turns slowly, but safely Unsupported Stance, Alternating Feet on 4 Steps w/Supervision Stair Unsupported Tandem Stance Small Step- 30 seconds Unilateral Leg Stance Lifts Leg/Unable to Hold Total Score Hogan Total Score (out of 56 points) 41 Hogan Impairment Rating 20 to 39% Impaired (Score 34- 44) PT-OP-E Functional Tests Start: 03/13/21 14:33 Freq: Status: Active Protocol: Document 03/13/21 12:00 DCW (Rec: 03/13/21 15:08 DCW [id number]) Functional Tests 6 Minute Walk Test Distance 686' Device Used [facility] [place] 1.91 ft/sec Timed Up and Go (TUG) Score 13.73 Comments 3-trial average (14.69,13.11 , 13.40) using SPC TUG Impairment Rating 40 to <60% Impaired (Score 14- 15) PT-OP-M Strength Start: 03/13/21 14:33 Freq: Status: Active Protocol: Document 03/13/21 12:00 DCW (Rec: 03/13/21 15:08 DCW [id number]) Hip Strength Hip Manual Muscle Testing Right Flexion (L2) 4+ Good+ Abduction 4 Good Adduction 4+ Good+ External Rotation 4+ Good+ Internal Rotation 4+ Good+ Left Flexion (L2) 3 Fair Abduction 3+ Fair+ Adduction 4 Good External Rotation 3- Fair- Internal Rotation 2 Poor Knee Strength Knee Manual Muscle Testing Right Flexion (S2) 5 Normal Extension (L3) 5 Normal Left Flexion (S2) 2+ Poor+ Extension (L3) 2- Poor- Ankle/Foot Strength Ankle and Foot Manual Muscle Testing Left Dorsiflexion (L4) 2- Poor- Plantarflexion (S1) 3 Fair PT-OP-Q Treatments Start: 03/13/21 14:33 Freq: Status: Active Protocol: Document 04/24/21 09:45 DCW (Rec: 04/24/21 10:33 DCW [id number]) Cardio Equipment Recumbent Stepper (Sci-Fit) Duration (Minutes) 5 Resistance 4 Seat Position 6 Gym Equipment Shuttle Recovery Bilateral Squats Resistance 62# Shuttle Recovery Platform Unstable Unilateral Squats Details Left Resistance 25# Shuttle Recovery Platform Stable Shuttle Balance Red Details WBOS (EO/EC), Staggered Gait Training Gait Activity 1 Description Gait /s AFO Device Used SPC Level of Assistance SBA Neuro Re-Education Treatment Balance Activities 2 Details SLS Surface Firm Equipment // bars PT-OP-R Modalities Start: 03/13/21 14:33 Freq: Status: Active Protocol: Document 04/24/21 09:45 DCW (Rec: 04/24/21 10:33 DCW [id number]) Electric Stimulation Electric Stimulation American Stimulation Body Location Left Anterior Tib Duration (Minutes) 10 Intensity 43 Patient Position Sitting Comments 5 on, 5 off PT-OP-T Assessment and Plan Start: 03/13/21 14:33 Freq: Status: Active Protocol: Document 04/24/21 09:45 DCW (Rec: 04/24/21 10:33 DCW [id number]) Physical Therapy Assessment Impairments Impairments Activity Tolerance,Balance, Functional Activities, Functional Mobility,Gait,ROM, Soft Tissue Mobility,Strength, Transfers Other Concerns Fall Risk Increased falls risk per Hogan (41/56) and TUG (13.73) scores Goals Three Impairment Pt completes 6MWT with an average speed of 1.91 ft/sec Orchid Superintendent Goal (LTG) Pt to complete 6MWT with an average speed of at least 2.4 ft/sec for a total distance > 864' to show decreased risk of functional decline LTG Duration 05/14/21 Two Impairment Increased falls risk per Hogan (41/56) and TUG (13.73) scores Half-Way Goal (LTG) Pt to increase Hogan score by at least 5 points to 46/56 to demonstrate decreased falls risk LTG Duration 05/14/21 One Impairment Pt does not have an appropriate home exercise program Short Term Goal (STG) Pt to be independent and compliant with an appropriate HEP STG Duration 04/13/21 Assessment Summary Assessment Pt wanted to try walking today without AFO, showing some mild DF, but fatigued quickly and resorted to steppage gait pattern, was unable to perform proper heel-toe. begrudgingly admitted she should still use AFO. Physical Therapy Plan Frequency and Duration Frequency of Treatment 2x/Week Duration of Treatment Two months Plan of Care Start Date 03/13/21 Plan of Care End Date 05/14/21 Therapeutic Interventions Therapeutic Interventions Aquatic Therapy,Balance Training,Gait Training,Home Exercise Program,Manual Therapy,Neuromuscular Re- education,Patient/Caregiver Education,Self-Care/Home Management,Soft Tissue Mobilization,Therapeutic Exercises Modalities Cold Pack/Ice Massage,Electric Stimulation,Hot Packs Next Visit Focus/Plan Next Note Type Treatment Note Next Visit Plan Gait training, balance training, LE strengthening, functional mobility.
--- NOTE | 2021-04-27 10:32 | PT.OTN ---
Current Diagnoses Cerebral infarction, unspecified (04/27/21) Muscle weakness (generalized) (04/27/21) Other abnormalities of gait and mobility (04/27/21) Repeated falls (04/27/21) Other symptoms and signs involving the musculoskeletal system (04/27/21) Physical Therapy Treatment Note PT-OP-A Visit Information Start: 03/13/21 14:33 Freq: Status: Active Protocol: Document 04/27/21 09:45 DCW (Rec: 04/27/21 10:32 DCW [id number]) Out-Patient Physical Therapy Visit Information Visit Information Visit Type Treatment Note Visit Start Time 09:45 Visit Stop Time 10:30 Total Visit Minutes 45 Visit Number 11 Number of TRANSLATOR Visits 0 Evaluation Information Evaluation Date 03/13/21 PT-OP-B Current Condition Start: 03/13/21 14:33 Freq: Status: Active Protocol: Document 03/13/21 12:00 DCW (Rec: 03/13/21 15:08 DCW [id number]) Current Condition History of Current Condition Onset Date 12/16/20 Current Complaints Hemiparesis, weakness, gait difficulty, decreased balance History of Current Condition Pt is a 65 year old female presenting three months s/p thalamic CVA. Pt presented to ED on 12/16/20 with sudden onset of left-sided weakness when waking up early in the AM to go to the bathroom. Pt noticed she could not more her left arm, tried to stand up, and fell over when her left leg was also unable to support her. The day after hospitalization, pt was transferred to [facility] for intensive rehab, notes she underwent 2.5 hours of PT/OT each day. Pt remained there for one months, and was then discharged home on January 13 with [facility], and since that time has been undergoing PT 2x/week and OT 3x/week, and was discharged from both disciplines earlier this week. Pt reports her left arm function is her biggest concern, and has been referred to outpatient OT for this, but also has difficulty with gait and balance. Pt wears an AFO on her left foot due to foot drop, and walks with a SPC. Admits she has had a few falls, but her balance has been a bit better since she left [facility] and has been slightly more stable at home. Treatment Goals Patient/Caregiver Goals I want to get back to normal function. I want to be able to walk independently without the cane, and use my arms like before. Really, I want to be able to live without depending on anyone, I was so independent before. PT-OP-C Subjective Start: 03/13/21 14:33 Freq: Status: Active Protocol: Document 04/27/21 09:45 DCW (Rec: 04/27/21 10:32 DCW [id number]) OP-PT Subjective Patient Comments Patient Comments Pt notes she is doing pretty well today. PT-OP-D Balance Start: 03/13/21 14:33 Freq: Status: Active Protocol: Document 03/13/21 12:00 DCW (Rec: 03/13/21 15:08 DCW [id number]) Balance Tests Hogan Balance Test Hogan Balance Test Score 41/56 Hogan Impairment Rating 20 to 39% Impaired (Score 34- 44) Single Limb Standing Single Limb- Right 9 seconds Single Limb- Left 2 seconds Hogan Balance Assessment Evaluation Sitting to Standing Ability Independent w/out Hands Unsupported Stance Safely- 2 minutes Sitting Unsupported, Feet on Floor Safely- 2 minutes Standing to Sitting Ability Assist, Control w/Hands Transfer Ability Safely, Minimal Hand Use Unsupported Stance- Eyes Closed Supervision, 10 seconds Unsupported Stance- Eyes Open Supervision to maintain Reaching Forward Standing Safely, 5 inches Pick- Up Object From Floor Supervision Look Behind Shoulder - Standing Shifts Weight Unilateral Turning 360 Degrees Turns slowly, but safely Unsupported Stance, Alternating Feet on 4 Steps w/Supervision Stair Unsupported Tandem Stance Small Step- 30 seconds Unilateral Leg Stance Lifts Leg/Unable to Hold Total Score Hogan Total Score (out of 56 points) 41 Hogan Impairment Rating 20 to 39% Impaired (Score 34- 44) PT-OP-E Functional Tests Start: 03/13/21 14:33 Freq: Status: Active Protocol: Document 03/13/21 12:00 DCW (Rec: 03/13/21 15:08 DCW [id number]) Functional Tests 6 Minute Walk Test Distance 686' Device Used [facility] [place] 1.91 ft/sec Timed Up and Go (TUG) Score 13.73 Comments 3-trial average (14.69,13.11 , 13.40) using SPC TUG Impairment Rating 40 to <60% Impaired (Score 14- 15) PT-OP-M Strength Start: 03/13/21 14:33 Freq: Status: Active Protocol: Document 03/13/21 12:00 DCW (Rec: 03/13/21 15:08 DCW [id number]) Hip Strength Hip Manual Muscle Testing Right Flexion (L2) 4+ Good+ Abduction 4 Good Adduction 4+ Good+ External Rotation 4+ Good+ Internal Rotation 4+ Good+ Left Flexion (L2) 3 Fair Abduction 3+ Fair+ Adduction 4 Good External Rotation 3- Fair- Internal Rotation 2 Poor Knee Strength Knee Manual Muscle Testing Right Flexion (S2) 5 Normal Extension (L3) 5 Normal Left Flexion (S2) 2+ Poor+ Extension (L3) 2- Poor- Ankle/Foot Strength Ankle and Foot Manual Muscle Testing Left Dorsiflexion (L4) 2- Poor- Plantarflexion (S1) 3 Fair PT-OP-Q Treatments Start: 03/13/21 14:33 Freq: Status: Active Protocol: Document 04/27/21 09:45 DCW (Rec: 04/27/21 10:32 DCW [id number]) Cardio Equipment Recumbent Stepper (Sci-Fit) Duration (Minutes) 5 Resistance 3 Seat Position 6 Gym Equipment Shuttle Recovery Bilateral Squats Resistance 62# Shuttle Recovery Platform Unstable Unilateral Squats Details Left Resistance 25# Shuttle Recovery Platform Stable Shuttle Balance Red Details WBOS (EO/EC), Staggered Therapeutic Exercises Standing Exercises 4 Standing Exercise Name Standing Marching Side bilateral Resistance 4# 3 Standing Exercise Name Hamstring Curls Side bilateral Resistance 4# 2 Standing Exercise Name Hip Extension Side bilateral Resistance Yellow Equipment Used T-band 1 Standing Exercise Name Hip Abduction Side bilateral Resistance Yellow Equipment Used T-band Other Exercises 1 Other Exercise Name Step-ups Side left Equipment Used 6 step PT-OP-R Modalities Start: 03/13/21 14:33 Freq: Status: Active Protocol: Document 04/27/21 09:45 DCW (Rec: 04/27/21 10:32 DCW [id number]) Electric Stimulation Electric Stimulation Congolese Stimulation Body Location Left Anterior Tib Duration (Minutes) 10 Intensity 37 Patient Position Sitting Comments 5 on, 5 off PT-OP-T Assessment and Plan Start: 03/13/21 14:33 Freq: Status: Active Protocol: Document 04/27/21 09:45 DCW (Rec: 04/27/21 10:32 DCW [id number]) Physical Therapy Assessment Impairments Impairments Activity Tolerance,Balance, Functional Activities, Functional Mobility,Gait,ROM, Soft Tissue Mobility,Strength, Transfers Other Concerns Fall Risk Increased falls risk per Hogan (41/56) and TUG (13.73) scores Goals Three Impairment Pt completes 6MWT with an average speed of 1.91 ft/sec Longterm Goal (LTG) Pt to complete 6MWT with an average speed of at least 2.4 ft/sec for a total distance > 864' to show decreased risk of functional decline LTG Duration 05/14/21 Two Impairment Increased falls risk per Hogan (41/56) and TUG (13.73) scores Gum Maker Goal (LTG) Pt to increase Hogan score by at least 5 points to 46/56 to demonstrate decreased falls risk LTG Duration 05/14/21 One Impairment Pt does not have an appropriate home exercise program Short Term Goal (STG) Pt to be independent and compliant with an appropriate HEP STG Duration 04/13/21 Assessment Summary Assessment Pt walked around clinic today without her SPC, overall did very well, no LOB, improved overall confidence. Physical Therapy Plan Frequency and Duration Frequency of Treatment 2x/Week Duration of Treatment Two months Plan of Care Start Date 03/13/21 Plan of Care End Date 05/14/21 Therapeutic Interventions Therapeutic Interventions Aquatic Therapy,Balance Training,Gait Training,Home Exercise Program,Manual Therapy,Neuromuscular Re- education,Patient/Caregiver Education,Self-Care/Home Management,Soft Tissue Mobilization,Therapeutic Exercises Modalities Cold Pack/Ice Massage,Electric Stimulation,Hot Packs Next Visit Focus/Plan Next Note Type Treatment Note Next Visit Plan Gait training, balance training, LE strengthening, functional mobility.
--- NOTE | 2021-04-30 10:32 | PT.OTN ---
Current Diagnoses Cerebral infarction, unspecified (04/30/21) Muscle weakness (generalized) (04/30/21) Other abnormalities of gait and mobility (04/30/21) Repeated falls (04/30/21) Other symptoms and signs involving the musculoskeletal system (04/30/21) Physical Therapy Treatment Note PT-OP-A Visit Information Start: 03/13/21 14:33 Freq: Status: Active Protocol: Document 04/30/21 09:49 DCW (Rec: 04/30/21 10:32 DCW [id number]) Out-Patient Physical Therapy Visit Information Visit Information Visit Type Treatment Note Visit Start Time 09:49 Visit Stop Time 10:30 Total Visit Minutes 41 Visit Number 12 Number of GERIATRIC SOCIAL WORKER Visits 0 Evaluation Information Evaluation Date 03/13/21 PT-OP-B Current Condition Start: 03/13/21 14:33 Freq: Status: Active Protocol: Document 03/13/21 12:00 DCW (Rec: 03/13/21 15:08 DCW [id number]) Current Condition History of Current Condition Onset Date 12/16/20 Current Complaints Hemiparesis, weakness, gait difficulty, decreased balance History of Current Condition Pt is a 65 year old female presenting three months s/p thalamic CVA. Pt presented to ED on 12/16/20 with sudden onset of left-sided weakness when waking up early in the AM to go to the bathroom. Pt noticed she could not more her left arm, tried to stand up, and fell over when her left leg was also unable to support her. The day after hospitalization, pt was transferred to [facility] for intensive rehab, notes she underwent 2.5 hours of PT/OT each day. Pt remained there for one months, and was then discharged home on January 13 with [facility], and since that time has been undergoing PT 2x/week and OT 3x/week, and was discharged from both disciplines earlier this week. Pt reports her left arm function is her biggest concern, and has been referred to outpatient OT for this, but also has difficulty with gait and balance. Pt wears an AFO on her left foot due to foot drop, and walks with a SPC. Admits she has had a few falls, but her balance has been a bit better since she left [facility] and has been slightly more stable at home. Treatment Goals Patient/Caregiver Goals I want to get back to normal function. I want to be able to walk independently without the cane, and use my arms like before. Really, I want to be able to live without depending on anyone, I was so independent before. PT-OP-C Subjective Start: 03/13/21 14:33 Freq: Status: Active Protocol: Document 04/30/21 09:49 DCW (Rec: 04/30/21 10:32 DCW [id number]) OP-PT Subjective Patient Comments Patient Comments Pt feels good today. PT-OP-D Balance Start: 03/13/21 14:33 Freq: Status: Active Protocol: Document 03/13/21 12:00 DCW (Rec: 03/13/21 15:08 DCW [id number]) Balance Tests Hogan Balance Test Hogan Balance Test Score 41/56 Hogan Impairment Rating 20 to 39% Impaired (Score 34- 44) Single Limb Standing Single Limb- Right 9 seconds Single Limb- Left 2 seconds Hogan Balance Assessment Evaluation Sitting to Standing Ability Independent w/out Hands Unsupported Stance Safely- 2 minutes Sitting Unsupported, Feet on Floor Safely- 2 minutes Standing to Sitting Ability Assist, Control w/Hands Transfer Ability Safely, Minimal Hand Use Unsupported Stance- Eyes Closed Supervision, 10 seconds Unsupported Stance- Eyes Open Supervision to maintain Reaching Forward Standing Safely, 5 inches Pick- Up Object From Floor Supervision Look Behind Shoulder - Standing Shifts Weight Unilateral Turning 360 Degrees Turns slowly, but safely Unsupported Stance, Alternating Feet on 4 Steps w/Supervision Stair Unsupported Tandem Stance Small Step- 30 seconds Unilateral Leg Stance Lifts Leg/Unable to Hold Total Score Hogan Total Score (out of 56 points) 41 Hogan Impairment Rating 20 to 39% Impaired (Score 34- 44) PT-OP-E Functional Tests Start: 03/13/21 14:33 Freq: Status: Active Protocol: Document 03/13/21 12:00 DCW (Rec: 03/13/21 15:08 DCW [id number]) Functional Tests 6 Minute Walk Test Distance 686' Device Used [facility] [place], [place] Comments 1.91 ft/sec Timed Up and Go (TUG) Score 13.73 Comments 3-trial average (14.69,13.11 , 13.40) using SPC TUG Impairment Rating 40 to <60% Impaired (Score 14- 15) PT-OP-M Strength Start: 03/13/21 14:33 Freq: Status: Active Protocol: Document 03/13/21 12:00 DCW (Rec: 03/13/21 15:08 DCW [id number]) Hip Strength Hip Manual Muscle Testing Right Flexion (L2) 4+ Good+ Abduction 4 Good Adduction 4+ Good+ External Rotation 4+ Good+ Internal Rotation 4+ Good+ Left Flexion (L2) 3 Fair Abduction 3+ Fair+ Adduction 4 Good External Rotation 3- Fair- Internal Rotation 2 Poor Knee Strength Knee Manual Muscle Testing Right Flexion (S2) 5 Normal Extension (L3) 5 Normal Left Flexion (S2) 2+ Poor+ Extension (L3) 2- Poor- Ankle/Foot Strength Ankle and Foot Manual Muscle Testing Left Dorsiflexion (L4) 2- Poor- Plantarflexion (S1) 3 Fair PT-OP-Q Treatments Start: 03/13/21 14:33 Freq: Status: Active Protocol: Document 04/30/21 09:49 DCW (Rec: 04/30/21 10:32 DCW [id number]) Cardio Equipment Recumbent Stepper (Sci-Fit) Duration (Minutes) 5 Resistance 3 Seat Position 5 Gym Equipment Shuttle Recovery Bilateral Squats Resistance 75# Shuttle Recovery Platform Unstable Unilateral Squats Details Left Resistance 37# Shuttle Recovery Platform Stable Shuttle Balance Red Details WBOS (EO/EC), Staggered Therapeutic Exercises Standing Exercises 4 Standing Exercise Name Standing Marching Side bilateral Resistance 4# 3 Standing Exercise Name Hamstring Curls Side bilateral Resistance 4# 2 Standing Exercise Name Hip Extension Side bilateral Resistance Yellow Equipment Used T-band 1 Standing Exercise Name Hip Abduction Side bilateral Resistance Yellow Equipment Used T-band PT-OP-R Modalities Start: 03/13/21 14:33 Freq: Status: Active Protocol: Document 04/30/21 09:49 DCW (Rec: 04/30/21 10:32 DCW [id number]) Electric Stimulation Electric Stimulation [place] Stimulation Body Location Left Anterior Tib Duration (Minutes) 10 Intensity 38 Patient Position Sitting Comments 5 on, 5 off AAROM Dorsiflexion PT-OP-T Assessment and Plan Start: 03/13/21 14:33 Freq: Status: Active Protocol: Document 04/30/21 09:49 DCW (Rec: 04/30/21 10:32 DCW [id number]) Physical Therapy Assessment Impairments Impairments Activity Tolerance,Balance, Functional Activities, Functional Mobility,Gait,ROM, Soft Tissue Mobility,Strength, Transfers Other Concerns Fall Risk Increased falls risk per Hogan (41/56) and TUG (13.73) scores Goals Three Impairment Pt completes 6MWT with an average speed of 1.91 ft/sec Sliver Handler Goal (LTG) Pt to complete 6MWT with an average speed of at least 2.4 ft/sec for a total distance > 864' to show decreased risk of functional decline LTG Duration 05/14/21 Two Impairment Increased falls risk per Hogan (41/56) and TUG (13.73) scores Sliver Handler Goal (LTG) Pt to increase Hogan score by at least 5 points to 46/56 to demonstrate decreased falls risk LTG Duration 05/14/21 One Impairment Pt does not have an appropriate home exercise program Short Term Goal (STG) Pt to be independent and compliant with an appropriate HEP STG Duration 04/13/21 Assessment Summary Assessment Pt doing well with increased resistance, showing some improving LE strength. Physical Therapy Plan Frequency and Duration Frequency of Treatment 2x/Week Duration of Treatment Two months Plan of Care Start Date 03/13/21 Plan of Care End Date 05/14/21 Therapeutic Interventions Therapeutic Interventions Aquatic Therapy,Balance Training,Gait Training,Home Exercise Program,Manual Therapy,Neuromuscular Re- education,Patient/Caregiver Education,Self-Care/Home Management,Soft Tissue Mobilization,Therapeutic Exercises Modalities Cold Pack/Ice Massage,Electric Stimulation,Hot Packs Next Visit Focus/Plan Next Note Type Treatment Note Next Visit Plan Gait training, balance training, LE strengthening, functional mobility.
--- NOTE | 2021-05-06 10:30 | PT.OTN ---
Current Diagnoses Cerebral infarction, unspecified (05/06/21) Muscle weakness (generalized) (05/06/21) Other abnormalities of gait and mobility (05/06/21) Repeated falls (05/06/21) Other symptoms and signs involving the musculoskeletal system (05/06/21) Physical Therapy Treatment Note PT-OP-A Visit Information Start: 03/13/21 14:33 Freq: Status: Active Protocol: Document 05/06/21 09:45 DCW (Rec: 05/06/21 10:29 DCW [id number]) Out-Patient Physical Therapy Visit Information Visit Information Visit Type Treatment Note Visit Start Time 09:45 Visit Stop Time 10:30 Total Visit Minutes 45 Visit Number 13 Number of CONTACT LENS TECHNICIAN Visits 0 Evaluation Information Evaluation Date 03/13/21 PT-OP-B Current Condition Start: 03/13/21 14:33 Freq: Status: Active Protocol: Document 03/13/21 12:00 DCW (Rec: 03/13/21 15:08 DCW [id number]) Current Condition History of Current Condition Onset Date 12/16/20 Current Complaints Hemiparesis, weakness, gait difficulty, decreased balance History of Current Condition Pt is a 65 year old female presenting three months s/p thalamic CVA. Pt presented to ED on 12/16/20 with sudden onset of left-sided weakness when waking up early in the AM to go to the bathroom. Pt noticed she could not more her left arm, tried to stand up, and fell over when her left leg was also unable to support her. The day after hospitalization, pt was transferred to [facility] ([place], [place]) for intensive rehab, notes she underwent 2.5 hours of PT/OT each day. Pt remained there for one months, and was then discharged home on January 13 with [facility], and since that time has been undergoing PT 2x/week and OT 3x/week, and was discharged from both disciplines earlier this week. Pt reports her left arm function is her biggest concern, and has been referred to outpatient OT for this, but also has difficulty with gait and balance. Pt wears an AFO on her left foot due to foot drop, and walks with a SPC. Admits she has had a few falls, but her balance has been a bit better since she left [facility] ([place], [place]) and has been slightly more stable at home. Treatment Goals Patient/Caregiver Goals I want to get back to normal function. I want to be able to walk independently without the cane, and use my arms like before. Really, I want to be able to live without depending on anyone, I was so independent before. PT-OP-C Subjective Start: 03/13/21 14:33 Freq: Status: Active Protocol: Document 05/06/21 09:45 DCW (Rec: 05/06/21 10:29 DCW [id number]) OP-PT Subjective Patient Comments Patient Comments Pt has no changes to discuss. PT-OP-D Balance Start: 03/13/21 14:33 Freq: Status: Active Protocol: Document 03/13/21 12:00 DCW (Rec: 03/13/21 15:08 DCW [id number]) Balance Tests Hogan Balance Test Hogan Balance Test Score 41/56 Hogan Impairment Rating 20 to 39% Impaired (Score 34- 44) Single Limb Standing Single Limb- Right 9 seconds Single Limb- Left 2 seconds Hogan Balance Assessment Evaluation Sitting to Standing Ability Independent w/out Hands Unsupported Stance Safely- 2 minutes Sitting Unsupported, Feet on Floor Safely- 2 minutes Standing to Sitting Ability Assist, Control w/Hands Transfer Ability Safely, Minimal Hand Use Unsupported Stance- Eyes Closed Supervision, 10 seconds Unsupported Stance- Eyes Open Supervision to maintain Reaching Forward Standing Safely, 5 inches Pick- Up Object From Floor Supervision Look Behind Shoulder - Standing Shifts Weight Unilateral Turning 360 Degrees Turns slowly, but safely Unsupported Stance, Alternating Feet on 4 Steps w/Supervision Stair Unsupported Tandem Stance Small Step- 30 seconds Unilateral Leg Stance Lifts Leg/Unable to Hold Total Score Hogan Total Score (out of 56 points) 41 Hogan Impairment Rating 20 to 39% Impaired (Score 34- 44) PT-OP-E Functional Tests Start: 03/13/21 14:33 Freq: Status: Active Protocol: Document 03/13/21 12:00 DCW (Rec: 03/13/21 15:08 DCW [id number]) Functional Tests 6 Minute Walk Test Distance 686' Device Used [facility] Comments 1.91 ft/sec Timed Up and Go (TUG) Score 13.73 Comments 3-trial average (14.69,13.11 , 13.40) using SPC TUG Impairment Rating 40 to <60% Impaired (Score 14- 15) PT-OP-M Strength Start: 03/13/21 14:33 Freq: Status: Active Protocol: Document 03/13/21 12:00 DCW (Rec: 03/13/21 15:08 DCW [id number]) Hip Strength Hip Manual Muscle Testing Right Flexion (L2) 4+ Good+ Abduction 4 Good Adduction 4+ Good+ External Rotation 4+ Good+ Internal Rotation 4+ Good+ Left Flexion (L2) 3 Fair Abduction 3+ Fair+ Adduction 4 Good External Rotation 3- Fair- Internal Rotation 2 Poor Knee Strength Knee Manual Muscle Testing Right Flexion (S2) 5 Normal Extension (L3) 5 Normal Left Flexion (S2) 2+ Poor+ Extension (L3) 2- Poor- Ankle/Foot Strength Ankle and Foot Manual Muscle Testing Left Dorsiflexion (L4) 2- Poor- Plantarflexion (S1) 3 Fair PT-OP-Q Treatments Start: 03/13/21 14:33 Freq: Status: Active Protocol: Document 05/06/21 09:45 DCW (Rec: 05/06/21 10:29 DCW [id number]) Cardio Equipment Recumbent Stepper (Sci-Fit) Duration (Minutes) 5 Resistance 5 Seat Position 5 Gym Equipment Shuttle Recovery Bilateral Squats Resistance 75# Shuttle Recovery Platform Unstable Unilateral Squats Details Left Resistance 37# Shuttle Recovery Platform Stable Shuttle Balance Red Details WBOS (EO/EC), Staggered Therapeutic Exercises Standing Exercises 4 Standing Exercise Name Standing Marching Side bilateral Resistance 4# 3 Standing Exercise Name Hamstring Curls Side bilateral Resistance 4# 2 Standing Exercise Name Hip Extension Side bilateral Resistance Yellow Equipment Used T-band 1 Standing Exercise Name Hip Abduction Side bilateral Resistance Yellow Equipment Used T-band Other Exercises 2 Other Exercise Name Resisted side-stepping Resistance Yellow Equipment Used T-band PT-OP-R Modalities Start: 03/13/21 14:33 Freq: Status: Active Protocol: Document 05/06/21 09:45 DCW (Rec: 05/06/21 10:29 DCW [id number]) Electric Stimulation Electric Stimulation [place] Stimulation Body Location Left Anterior Tib Duration (Minutes) 10 Intensity 45 Patient Position Sitting Comments 5 on, 5 off AAROM Dorsiflexion PT-OP-T Assessment and Plan Start: 03/13/21 14:33 Freq: Status: Active Protocol: Document 05/06/21 09:45 DCW (Rec: 05/06/21 10:29 DCW [id number]) Physical Therapy Assessment Impairments Impairments Activity Tolerance,Balance, Functional Activities, Functional Mobility,Gait,ROM, Soft Tissue Mobility,Strength, Transfers Other Concerns Fall Risk Increased falls risk per Hogan (41/56) and TUG (13.73) scores Goals Three Impairment Pt completes 6MWT with an average speed of 1.91 ft/sec Fdc Goal (LTG) Pt to complete 6MWT with an average speed of at least 2.4 ft/sec for a total distance > 864' to show decreased risk of functional decline LTG Duration 05/14/21 Two Impairment Increased falls risk per Hogan (41/56) and TUG (13.73) scores Fdc Goal (LTG) Pt to increase Hogan score by at least 5 points to 46/56 to demonstrate decreased falls risk LTG Duration 05/14/21 One Impairment Pt does not have an appropriate home exercise program Short Term Goal (STG) Pt to be independent and compliant with an appropriate HEP STG Duration 04/13/21 Assessment Summary Assessment Pt continues to progress with gait and stability Physical Therapy Plan Frequency and Duration Frequency of Treatment 2x/Week Duration of Treatment Two months Plan of Care Start Date 03/13/21 Plan of Care End Date 05/14/21 Therapeutic Interventions Therapeutic Interventions Aquatic Therapy,Balance Training,Gait Training,Home Exercise Program,Manual Therapy,Neuromuscular Re- education,Patient/Caregiver Education,Self-Care/Home Management,Soft Tissue Mobilization,Therapeutic Exercises Modalities Cold Pack/Ice Massage,Electric Stimulation,Hot Packs Next Visit Focus/Plan Next Note Type Treatment Note Next Visit Plan Gait training, balance training, LE strengthening, functional mobility.
--- NOTE | 2021-05-08 11:59 | PT.OTN ---
Current Diagnoses Cerebral infarction, unspecified (05/08/21) Muscle weakness (generalized) (05/08/21) Other abnormalities of gait and mobility (05/08/21) Repeated falls (05/08/21) Other symptoms and signs involving the musculoskeletal system (05/08/21) Physical Therapy Treatment Note PT-OP-A Visit Information Start: 03/13/21 14:33 Freq: Status: Active Protocol: Document 05/08/21 11:15 DCW (Rec: 05/08/21 11:59 DCW [id number]) Out-Patient Physical Therapy Visit Information Visit Information Visit Type Treatment Note Visit Start Time 11:15 Visit Stop Time 12:00 Total Visit Minutes 45 Visit Number 14 Number of PUBLIC POLICY PROFESSOR Visits 0 Evaluation Information Evaluation Date 03/13/21 PT-OP-B Current Condition Start: 03/13/21 14:33 Freq: Status: Active Protocol: Document 03/13/21 12:00 DCW (Rec: 03/13/21 15:08 DCW [id number]) Current Condition History of Current Condition Onset Date 12/16/20 Current Complaints Hemiparesis, weakness, gait difficulty, decreased balance History of Current Condition Pt is a 65 year old female presenting three months s/p thalamic CVA. Pt presented to ED on 12/16/20 with sudden onset of left-sided weakness when waking up early in the AM to go to the bathroom. Pt noticed she could not more her left arm, tried to stand up, and fell over when her left leg was also unable to support her. The day after hospitalization, pt was transferred to [facility] for intensive rehab, notes she underwent 2.5 hours of PT/OT each day. Pt remained there for one months, and was then discharged home on January 13 with [facility], and since that time has been undergoing PT 2x/week and OT 3x/week, and was discharged from both disciplines earlier this week. Pt reports her left arm function is her biggest concern, and has been referred to outpatient OT for this, but also has difficulty with gait and balance. Pt wears an AFO on her left foot due to foot drop, and walks with a SPC. Admits she has had a few falls, but her balance has been a bit better since she left [facility] and has been slightly more stable at home. Treatment Goals Patient/Caregiver Goals I want to get back to normal function. I want to be able to walk independently without the cane, and use my arms like before. Really, I want to be able to live without depending on anyone, I was so independent before. PT-OP-C Subjective Start: 03/13/21 14:33 Freq: Status: Active Protocol: Document 05/08/21 11:15 DCW (Rec: 05/08/21 11:59 DCW [id number]) OP-PT Subjective Patient Comments Patient Comments I think I'm getting better every day. PT-OP-D Balance Start: 03/13/21 14:33 Freq: Status: Active Protocol: Document 03/13/21 12:00 DCW (Rec: 03/13/21 15:08 DCW [id number]) Balance Tests Hogan Balance Test Hogan Balance Test Score 41/56 Hogan Impairment Rating 20 to 39% Impaired (Score 34- 44) Single Limb Standing Single Limb- Right 9 seconds Single Limb- Left 2 seconds Hogan Balance Assessment Evaluation Sitting to Standing Ability Independent w/out Hands Unsupported Stance Safely- 2 minutes Sitting Unsupported, Feet on Floor Safely- 2 minutes Standing to Sitting Ability Assist, Control w/Hands Transfer Ability Safely, Minimal Hand Use Unsupported Stance- Eyes Closed Supervision, 10 seconds Unsupported Stance- Eyes Open Supervision to maintain Reaching Forward Standing Safely, 5 inches Pick- Up Object From Floor Supervision Look Behind Shoulder - Standing Shifts Weight Unilateral Turning 360 Degrees Turns slowly, but safely Unsupported Stance, Alternating Feet on 4 Steps w/Supervision Stair Unsupported Tandem Stance Small Step- 30 seconds Unilateral Leg Stance Lifts Leg/Unable to Hold Total Score Hogan Total Score (out of 56 points) 41 Hogan Impairment Rating 20 to 39% Impaired (Score 34- 44) PT-OP-E Functional Tests Start: 03/13/21 14:33 Freq: Status: Active Protocol: Document 03/13/21 12:00 DCW (Rec: 03/13/21 15:08 DCW [id number]) Functional Tests 6 Minute Walk Test Distance 686' Device Used [facility] Comments 1.91 ft/sec Timed Up and Go (TUG) Score 13.73 Comments 3-trial average (14.69,13.11 , 13.40) using SPC TUG Impairment Rating 40 to <60% Impaired (Score 14- 15) PT-OP-M Strength Start: 03/13/21 14:33 Freq: Status: Active Protocol: Document 03/13/21 12:00 DCW (Rec: 03/13/21 15:08 DCW [id number]) Hip Strength Hip Manual Muscle Testing Right Flexion (L2) 4+ Good+ Abduction 4 Good Adduction 4+ Good+ External Rotation 4+ Good+ Internal Rotation 4+ Good+ Left Flexion (L2) 3 Fair Abduction 3+ Fair+ Adduction 4 Good External Rotation 3- Fair- Internal Rotation 2 Poor Knee Strength Knee Manual Muscle Testing Right Flexion (S2) 5 Normal Extension (L3) 5 Normal Left Flexion (S2) 2+ Poor+ Extension (L3) 2- Poor- Ankle/Foot Strength Ankle and Foot Manual Muscle Testing Left Dorsiflexion (L4) 2- Poor- Plantarflexion (S1) 3 Fair PT-OP-Q Treatments Start: 03/13/21 14:33 Freq: Status: Active Protocol: Document 05/08/21 11:15 DCW (Rec: 05/08/21 11:59 DCW [id number]) Cardio Equipment Recumbent Elliptical (BiodRentBits) Duration (Minutes) 5 Resistance 5 Seat Position 1 Gym Equipment Shuttle Recovery Bilateral Squats Resistance 87# Shuttle Recovery Platform Unstable Unilateral Squats Details Left Resistance 37# Shuttle Recovery Platform Stable Shuttle Balance Red Details WBOS (EO/EC), Staggered Therapeutic Exercises Other Exercises 1 Other Exercise Name Step-ups Side left Equipment Used 6 step Neuro Re-Education Treatment Balance Activities 3 Details Tandem Stance 2 Details SLS Surface Firm Equipment // bars PT-OP-R Modalities Start: 03/13/21 14:33 Freq: Status: Active Protocol: Document 05/08/21 11:15 DCW (Rec: 05/08/21 11:59 DCW [id number]) Electric Stimulation Electric Stimulation Mexican Stimulation Body Location Left Anterior Tib Duration (Minutes) 10 Intensity 41 Patient Position Sitting Comments 5 on, 5 off AAROM Dorsiflexion PT-OP-T Assessment and Plan Start: 03/13/21 14:33 Freq: Status: Active Protocol: Document 05/08/21 11:15 DCW (Rec: 05/08/21 11:59 DCW [id number]) Physical Therapy Assessment Impairments Impairments Activity Tolerance,Balance, Functional Activities, Functional Mobility,Gait,ROM, Soft Tissue Mobility,Strength, Transfers Other Concerns Fall Risk Increased falls risk per Hogan (41/56) and TUG (13.73) scores Goals Three Impairment Pt completes 6MWT with an average speed of 1.91 ft/sec Halfway Goal (LTG) Pt to complete 6MWT with an average speed of at least 2.4 ft/sec for a total distance > 864' to show decreased risk of functional decline LTG Duration 05/14/21 Two Impairment Increased falls risk per Hogan (41/56) and TUG (13.73) scores Halfway Goal (LTG) Pt to increase Hogan score by at least 5 points to 46/56 to demonstrate decreased falls risk LTG Duration 05/14/21 One Impairment Pt does not have an appropriate home exercise program Short Term Goal (STG) Pt to be independent and compliant with an appropriate HEP STG Duration 04/13/21 Assessment Summary Assessment Pt showing some mild improvement with left dorsiflexion and toe extension Physical Therapy Plan Frequency and Duration Frequency of Treatment 2x/Week Duration of Treatment Two months Plan of Care Start Date 03/13/21 Plan of Care End Date 05/14/21 Therapeutic Interventions Therapeutic Interventions Aquatic Therapy,Balance Training,Gait Training,Home Exercise Program,Manual Therapy,Neuromuscular Re- education,Patient/Caregiver Education,Self-Care/Home Management,Soft Tissue Mobilization,Therapeutic Exercises Modalities Cold Pack/Ice Massage,Electric Stimulation,Hot Packs Next Visit Focus/Plan Next Note Type Treatment Note Next Visit Plan Gait training, balance training, LE strengthening, functional mobility.
--- NOTE | 2021-05-12 09:08 | PT.OTN ---
Current Diagnoses Cerebral infarction, unspecified (05/12/21) Muscle weakness (generalized) (05/12/21) Other abnormalities of gait and mobility (05/12/21) Repeated falls (05/12/21) Other symptoms and signs involving the musculoskeletal system (05/12/21) Physical Therapy Treatment Note PT-OP-A Visit Information Start: 03/13/21 14:33 Freq: Status: Active Protocol: Document 05/12/21 08:18 SP (Rec: 05/12/21 10:28 SP [id number]) Out-Patient Physical Therapy Visit Information Visit Information Visit Type Treatment Note Visit Note POC exp 05/14/21, PN next tx. Visit Start Time 08:18 Visit Stop Time 09:08 Total Visit Minutes 50 Visit Number 15 Number of TRAIN CONTROL TECHNICIAN Visits 1 Evaluation Information Evaluation Date 03/13/21 PT-OP-B Current Condition Start: 03/13/21 14:33 Freq: Status: Active Protocol: Document 03/13/21 12:00 DCW (Rec: 03/13/21 15:08 DCW [id number]) Current Condition History of Current Condition Onset Date 12/16/20 Current Complaints Hemiparesis, weakness, gait difficulty, decreased balance History of Current Condition Pt is a 65 year old female presenting three months s/p thalamic CVA. Pt presented to ED on 12/16/20 with sudden onset of left-sided weakness when waking up early in the AM to go to the bathroom. Pt noticed she could not more her left arm, tried to stand up, and fell over when her left leg was also unable to support her. The day after hospitalization, pt was transferred to [facility] for intensive rehab, notes she underwent 2.5 hours of PT/OT each day. Pt remained there for one months, and was then discharged home on January 13 with [facility], and since that time has been undergoing PT 2x/week and OT 3x/week, and was discharged from both disciplines earlier this week. Pt reports her left arm function is her biggest concern, and has been referred to outpatient OT for this, but also has difficulty with gait and balance. Pt wears an AFO on her left foot due to foot drop, and walks with a SPC. Admits she has had a few falls, but her balance has been a bit better since she left [facility] and has been slightly more stable at home. Treatment Goals Patient/Caregiver Goals I want to get back to normal function. I want to be able to walk independently without the cane, and use my arms like before. Really, I want to be able to live without depending on anyone, I was so independent before. PT-OP-C Subjective Start: 03/13/21 14:33 Freq: Status: Active Protocol: Document 05/12/21 08:18 SP (Rec: 05/12/21 10:28 SP [id number]) OP-PT Subjective Patient Comments Patient Comments Pt stated no changes since last, hasn't needed SPC short distances like in the house but uses it outside on uneven grass to feed the chickens. PT-OP-D Balance Start: 03/13/21 14:33 Freq: Status: Active Protocol: Document 03/13/21 12:00 DCW (Rec: 03/13/21 15:08 DCW [id number]) Balance Tests Hogan Balance Test Hogan Balance Test Score 41/56 Hogan Impairment Rating 20 to 39% Impaired (Score 34- 44) Single Limb Standing Single Limb- Right 9 seconds Single Limb- Left 2 seconds Hogan Balance Assessment Evaluation Sitting to Standing Ability Independent w/out Hands Unsupported Stance Safely- 2 minutes Sitting Unsupported, Feet on Floor Safely- 2 minutes Standing to Sitting Ability Assist, Control w/Hands Transfer Ability Safely, Minimal Hand Use Unsupported Stance- Eyes Closed Supervision, 10 seconds Unsupported Stance- Eyes Open Supervision to maintain Reaching Forward Standing Safely, 5 inches Pick- Up Object From Floor Supervision Look Behind Shoulder - Standing Shifts Weight Unilateral Turning 360 Degrees Turns slowly, but safely Unsupported Stance, Alternating Feet on 4 Steps w/Supervision Stair Unsupported Tandem Stance Small Step- 30 seconds Unilateral Leg Stance Lifts Leg/Unable to Hold Total Score Hogan Total Score (out of 56 points) 41 Hogan Impairment Rating 20 to 39% Impaired (Score 34- 44) PT-OP-E Functional Tests Start: 03/13/21 14:33 Freq: Status: Active Protocol: Document 03/13/21 12:00 DCW (Rec: 03/13/21 15:08 DCW [id number]) Functional Tests 6 Minute Walk Test Distance 686' Device Used [facility]PC Comments 1.91 ft/sec Timed Up and Go (TUG) Score 13.73 Comments 3-trial average (14.69,13.11 , 13.40) using SPC TUG Impairment Rating 40 to <60% Impaired (Score 14- 15) PT-OP-M Strength Start: 03/13/21 14:33 Freq: Status: Active Protocol: Document 03/13/21 12:00 DCW (Rec: 03/13/21 15:08 DCW [id number]) Hip Strength Hip Manual Muscle Testing Right Flexion (L2) 4+ Good+ Abduction 4 Good Adduction 4+ Good+ External Rotation 4+ Good+ Internal Rotation 4+ Good+ Left Flexion (L2) 3 Fair Abduction 3+ Fair+ Adduction 4 Good External Rotation 3- Fair- Internal Rotation 2 Poor Knee Strength Knee Manual Muscle Testing Right Flexion (S2) 5 Normal Extension (L3) 5 Normal Left Flexion (S2) 2+ Poor+ Extension (L3) 2- Poor- Ankle/Foot Strength Ankle and Foot Manual Muscle Testing Left Dorsiflexion (L4) 2- Poor- Plantarflexion (S1) 3 Fair PT-OP-Q Treatments Start: 03/13/21 14:33 Freq: Status: Active Protocol: Document 05/12/21 08:18 SP (Rec: 05/12/21 10:28 SP [id number]) Cardio Equipment Recumbent Elliptical (SoPost) Duration (Minutes) 5 Resistance 5 Seat Position closest notch Other LEs, occasional use UEs Gym Equipment Shuttle Recovery Bilateral Squats Resistance 87#>75# Shuttle Recovery Platform Unstable Reps/Time reps to tiring, cued slower pacing conc/ eccentric, knee alignment Unilateral Squats Details Left Resistance 37# Shuttle Recovery Platform Stable Reps/Time reps to tiring, cued slower pacing conc/ eccentric, knee alignment w/ toes Shuttle Balance Red Details WBOS (EO/EC), Staggered Comments 05/12/21: WBOS, NBOS wt shift, EO head turns. CG- Min A cued even BLE WB increase LLE wt acceptance, and spacial awareness Therapeutic Exercises Other Exercises Step taps Side bilateral Resistance AROM Equipment Used //bars (there as needed) Reps/Minutes 2x10 Comments CG- 5%A, CG 2nd set (1 reps 5% A retro lean recovery) 1 Other Exercise Name Step-ups Side bilateral Resistance Min A through gait belt Equipment Used 6 step, //bars ( there as needed) Reps/Minutes 2x10 Neuro Re-Education Treatment Balance Activities 3 Details Tandem Stance Surface firm Equipment //bars Comments balance, head turns CG- 10%A More assist with LLe in back position 2 Details SLS Surface Firm Equipment // bars, contact assist during LLE, hand hover bar RLE Comments Therapist provided anterior L knee support as needed during LLE to prevent buckling, unsteady. PT-OP-R Modalities Start: 03/13/21 14:33 Freq: Status: Active Protocol: Document 05/12/21 08:18 SP (Rec: 05/12/21 10:28 SP [id number]) Electric Stimulation Electric Stimulation Ivorian Stimulation Body Location Left Anterior Tib Duration (Minutes) 10 Intensity 39 Patient Position Sitting Comments 5 on, 5 off Dorsiflexion AROM during contraction PT-OP-T Assessment and Plan Start: 03/13/21 14:33 Freq: Status: Active Protocol: Document 05/12/21 08:18 SP (Rec: 05/12/21 10:28 SP [id number]) Physical Therapy Assessment Goals Three Impairment Pt completes 6MWT with an average speed of 1.91 ft/sec Partner Management Consultant Goal (LTG) Pt to complete 6MWT with an average speed of at least 2.4 ft/sec for a total distance > 864' to show decreased risk of functional decline LTG Duration 05/14/21 Two Impairment Increased falls risk per Hogan (41/56) and TUG (13.73) scores Senior Living Goal (LTG) Pt to increase Hogan score by at least 5 points to 46/56 to demonstrate decreased falls risk LTG Duration 05/14/21 One Impairment Pt does not have an appropriate home exercise program Short Term Goal (STG) Pt to be independent and compliant with an appropriate HEP STG Duration 04/13/21 Assessment Summary Assessment Pt improved with increased awareness of LLE wt acceptance w/ cues as needed for quad facilitation soft knee positioning and spacial awareness during shuttle balance, able to perform head turns WBOS, NBOS required increase assist. Physical Therapy Plan Frequency and Duration Frequency of Treatment 2x/Week Duration of Treatment Two months Plan of Care Start Date 03/13/21 Plan of Care End Date 05/14/21 Therapeutic Interventions Therapeutic Interventions Aquatic Therapy,Balance Training,Gait Training,Home Exercise Program,Manual Therapy,Neuromuscular Re- education,Patient/Caregiver Education,Self-Care/Home Management,Soft Tissue Mobilization,Therapeutic Exercises Modalities Cold Pack/Ice Massage,Electric Stimulation,Hot Packs Next Visit Focus/Plan Next Note Type Treatment Note Next Visit Plan Gait training, balance training, LE strengthening, functional mobility.
--- NOTE | 2021-05-15 12:51 | PT.OTN ---
Current Diagnoses Cerebral infarction, unspecified (05/15/21) Muscle weakness (generalized) (05/15/21) Other abnormalities of gait and mobility (05/15/21) Repeated falls (05/15/21) Other symptoms and signs involving the musculoskeletal system (05/15/21) Physical Therapy Treatment Note PT-OP-A Visit Information Start: 03/13/21 14:33 Freq: Status: Active Protocol: Document 05/15/21 12:00 DCW (Rec: 05/15/21 12:51 DCW [id number]) Out-Patient Physical Therapy Visit Information Visit Information Visit Type Progress Note Visit Start Time 12:00 Visit Stop Time 12:45 Total Visit Minutes 45 Visit Number 16 Number of CRACKLING PRESS OPERATOR Visits 0 Evaluation Information Evaluation Date 03/13/21 PT-OP-B Current Condition Start: 03/13/21 14:33 Freq: Status: Active Protocol: Document 03/13/21 12:00 DCW (Rec: 03/13/21 15:08 DCW [id number]) Current Condition History of Current Condition Onset Date 12/16/20 Current Complaints Hemiparesis, weakness, gait difficulty, decreased balance History of Current Condition Pt is a 65 year old female presenting three months s/p thalamic CVA. Pt presented to ED on 12/16/20 with sudden onset of left-sided weakness when waking up early in the AM to go to the bathroom. Pt noticed she could not more her left arm, tried to stand up, and fell over when her left leg was also unable to support her. The day after hospitalization, pt was transferred to [facility] for intensive rehab, notes she underwent 2.5 hours of PT/OT each day. Pt remained there for one months, and was then discharged home on January 13 with [facility], and since that time has been undergoing PT 2x/week and OT 3x/week, and was discharged from both disciplines earlier this week. Pt reports her left arm function is her biggest concern, and has been referred to outpatient OT for this, but also has difficulty with gait and balance. Pt wears an AFO on her left foot due to foot drop, and walks with a SPC. Admits she has had a few falls, but her balance has been a bit better since she left [facility] and has been slightly more stable at home. Treatment Goals Patient/Caregiver Goals I want to get back to normal function. I want to be able to walk independently without the cane, and use my arms like before. Really, I want to be able to live without depending on anyone, I was so independent before. PT-OP-C Subjective Start: 03/13/21 14:33 Freq: Status: Active Protocol: Document 05/15/21 12:00 DCW (Rec: 05/15/21 12:51 DCW [id number]) OP-PT Subjective Patient Comments Patient Comments Pt still gets a little negative regarding her perceived slow recovery. PT-OP-D Balance Start: 03/13/21 14:33 Freq: Status: Active Protocol: Document 05/15/21 12:00 DCW (Rec: 05/15/21 12:35 DCW [id number]) Balance Tests Hogan Balance Test Hogan Balance Test Score 48/56 Hogan Impairment Rating 1 to 19% Impaired (Score 45-55 ) Single Limb Standing Single Limb- Right 14 seconds Single Limb- Left 2 seconds Hogan Balance Assessment Evaluation Sitting to Standing Ability Independent w/out Hands Unsupported Stance Safely- 2 minutes Sitting Unsupported, Feet on Floor Safely- 2 minutes Standing to Sitting Ability Safely, Minimal Hand Use Transfer Ability Safely, Minimal Hand Use Unsupported Stance- Eyes Closed Safely, 10 seconds Unsupported Stance- Eyes Open Independent, 1 minute Reaching Forward Standing Safely, 5 inches Pick- Up Object From Floor Independent/Safe Look Behind Shoulder - Standing Shifts Weight Well Turning 360 Degrees Turns slowly, but safely Unsupported Stance, Alternating Feet on 4 Steps w/Supervision Stair Unsupported Tandem Stance Achieves Tandem Unilateral Leg Stance Lifts Leg/Unable to Hold Total Score Hogan Total Score (out of 56 points) 48 Hogan Impairment Rating 1 to 19% Impaired (Score 45-55 ) PT-OP-E Functional Tests Start: 03/13/21 14:33 Freq: Status: Active Protocol: Document 05/15/21 12:00 DCW (Rec: 05/15/21 12:35 DCW [id number]) Functional Tests 6 Minute Walk Test Distance 935' Device Used SPC Comments 2.60 Timed Up and Go (TUG) Score 11.54 Comments 3-trial average (11.67,11.57 , 11.40) using SPC TUG Impairment Rating 1 to <20% Impaired (Score 11) PT-OP-M Strength Start: 03/13/21 14:33 Freq: Status: Active Protocol: Document 05/15/21 12:00 DCW (Rec: 05/15/21 12:35 DCW [id number]) Hip Strength Hip Manual Muscle Testing Left Flexion (L2) 4- Good- Abduction 3+ Fair+ Adduction 4+ Good+ External Rotation 4- Good- Internal Rotation 3 Fair Knee Strength Knee Manual Muscle Testing Left Flexion (S2) 3- Fair- Extension (L3) 4 Good Ankle/Foot Strength Ankle and Foot Manual Muscle Testing Left Dorsiflexion (L4) 2- Poor- Plantarflexion (S1) 3 Fair PT-OP-Q Treatments Start: 03/13/21 14:33 Freq: Status: Active Protocol: Document 05/15/21 12:00 DCW (Rec: 05/15/21 12:51 DCW [id number]) Neuro Re-Education Treatment Movement Re-Education Movement Re-education Activities Testing: TUG, 6 MWT, Hogan, MMT PT-OP-R Modalities Start: 03/13/21 14:33 Freq: Status: Active Protocol: Document 05/15/21 12:00 DCW (Rec: 05/15/21 12:51 DCW [id number]) Electric Stimulation Electric Stimulation Cymraes Stimulation Body Location Left Anterior Tib Duration (Minutes) 10 Intensity 46 Patient Position Sitting Comments 5 on, 5 off Dorsiflexion AROM during contraction PT-OP-T Assessment and Plan Start: 03/13/21 14:33 Freq: Status: Active Protocol: Document 05/15/21 12:00 DCW (Rec: 05/15/21 12:51 DCW [id number]) Physical Therapy Assessment Impairments Impairments Activity Tolerance,Balance, Functional Activities, Functional Mobility,Gait,ROM, Soft Tissue Mobility,Strength, Transfers Other Concerns Fall Risk Increased falls risk per Hogan (41/56) and TUG (13.73) scores Goals Three Impairment Pt completes 6MWT with an average speed of 1.91 ft/sec Short Term Goal (STG) Pt to complete 6MWT with an average speed of at least 2.4 ft/sec for a total distance > 864' to show decreased risk of functional decline STG Duration Met Bilingual Recruiter Goal (LTG) Pt to ambulate >1200' during 6 MWT to demonstrate a return to prior level of functional gait LTG Duration 07/15/21 Two Impairment Increased falls risk per Hogan (41/56) and TUG (13.73) scores Short Term Goal (STG) Pt to increase Hogan score by at least 5 points to 46/56 to demonstrate decreased falls risk STG Duration Met Senior Living Goal (LTG) Pt to increase Hogan score by at least 5 points to 53/56 to demonstrate decreased falls risk LTG Duration 07/15/21 One Impairment Pt does not have an appropriate home exercise program Short Term Goal (STG) Pt to be independent and compliant with an appropriate HEP STG Duration Met Assessment Summary Assessment Pt demonstrating significant improvement in all tested areas today. Pt increased 6 MWT score by 249 feet, and Hogan score improved by 7. TUG score decreased by more than 2 seconds. Pt did, however, catch her foot and trip during her 6 MWT, which had to be assisted by therapist to prevent fall, combination of wet shoe and distraction by someone passing by. Pt should benefit from continued skilled therapy to help return closer to prior level of function, decrease activity tolerance, improve gait, and increase LE strength, especially right ankle. Physical Therapy Plan Frequency and Duration Frequency of Treatment 2x/Week Duration of Treatment Two months Plan of Care Start Date 05/15/21 Plan of Care End Date 07/15/21 Therapeutic Interventions Therapeutic Interventions Aquatic Therapy,Balance Training,Gait Training,Home Exercise Program,Manual Therapy,Neuromuscular Re- education,Patient/Caregiver Education,Self-Care/Home Management,Soft Tissue Mobilization,Therapeutic Exercises Modalities Cold Pack/Ice Massage,Electric Stimulation,Hot Packs Next Visit Focus/Plan Next Note Type Treatment Note Next Visit Plan Gait training, balance training, LE strengthening, functional mobility.
--- NOTE | 2021-05-15 12:52 | PT.OPPOC ---
Physical, Occupational & Speech Therapy At [facility] Current Diagnoses Cerebral infarction, unspecified (05/15/21) Muscle weakness (generalized) (05/15/21) Other abnormalities of gait and mobility (05/15/21) Repeated falls (05/15/21) Other symptoms and signs involving the musculoskeletal system (05/15/21) Visit Care Team Role Provider Type Xiomara Diego DO Attending Provider Physician Primary Care Provider Referring Provider Specialty: [facility] Address: [address] [place] [address] Email: [email or web address] Plan Of Care PT-OP-T Assessment and Plan Start: 03/13/21 14:33 Freq: Status: Active Protocol: Document 05/15/21 12:00 DCW (Rec: 05/15/21 12:51 DCW [id number]) Physical Therapy Assessment Impairments Impairments Activity Tolerance,Balance, Functional Activities, Functional Mobility,Gait,ROM, Soft Tissue Mobility,Strength, Transfers Other Concerns Fall Risk Increased falls risk per Hogan (41/56) and TUG (13.73) scores Goals Three Impairment Pt completes 6MWT with an average speed of 1.91 ft/sec Short Term Goal (STG) Pt to complete 6MWT with an average speed of at least 2.4 ft/sec for a total distance > 864' to show decreased risk of functional decline STG Duration Met Metal Drilling Machine Operator Goal (LTG) Pt to ambulate >1200' during 6 MWT to demonstrate a return to prior level of functional gait LTG Duration 07/15/21 Two Impairment Increased falls risk per Hogan (41/56) and TUG (13.73) scores Short Term Goal (STG) Pt to increase Hogan score by at least 5 points to 46/56 to demonstrate decreased falls risk STG Duration Met Metal Drilling Machine Operator Goal (LTG) Pt to increase Hogan score by at least 5 points to 53/56 to demonstrate decreased falls risk LTG Duration 07/15/21 One Impairment Pt does not have an appropriate home exercise program Short Term Goal (STG) Pt to be independent and compliant with an appropriate HEP STG Duration Met Assessment Summary Assessment Pt demonstrating significant improvement in all tested areas today. Pt increased 6 MWT score by 249 feet, and Hogan score improved by 7. TUG score decreased by more than 2 seconds. Pt did, however, catch her foot and trip during her 6 MWT, which had to be assisted by therapist to prevent fall, combination of wet shoe and distraction by someone passing by. Pt should benefit from continued skilled therapy to help return closer to prior level of function, decrease activity tolerance, improve gait, and increase LE strength, especially right ankle. Physical Therapy Plan Frequency and Duration Frequency of Treatment 2x/Week Duration of Treatment Two months Plan of Care Start Date 05/15/21 Plan of Care End Date 07/15/21 Therapeutic Interventions Therapeutic Interventions Aquatic Therapy,Balance Training,Gait Training,Home Exercise Program,Manual Therapy,Neuromuscular Re- education,Patient/Caregiver Education,Self-Care/Home Management,Soft Tissue Mobilization,Therapeutic Exercises Modalities Cold Pack/Ice Massage,Electric Stimulation,Hot Packs Next Visit Focus/Plan Next Note Type Treatment Note Next Visit Plan Gait training, balance training, LE strengthening, functional mobility. Plan of Care Dates Plan of Care Start Date 05/15/21 Plan of Care End Date 07/15/21 Electronically Signed by: Singh Harris, PT 05/15/21 2821 Please Sign and Return: I have reviewed this Plan of Care and certify that the skilled therapy services above are required to meet the patient?s needs. Physician Signature Date Printed Name and Credentials Clinical Instructor Signature Printed Name and Credentials
--- NOTE | 2021-05-19 09:00 | PT.OTN ---
Current Diagnoses Cerebral infarction, unspecified (05/19/21) Muscle weakness (generalized) (05/19/21) Other abnormalities of gait and mobility (05/19/21) Repeated falls (05/19/21) Other symptoms and signs involving the musculoskeletal system (05/19/21) Physical Therapy Treatment Note PT-OP-A Visit Information Start: 03/13/21 14:33 Freq: Status: Active Protocol: Document 05/19/21 08:17 SP (Rec: 05/19/21 09:48 SP [id number]) Out-Patient Physical Therapy Visit Information Visit Information Visit Type Treatment Note Visit Start Time 08:17 Visit Stop Time 09:00 Total Visit Minutes 43 Visit Number 17 Number of DONOR RELATIONS ASSOCIATE Visits 1 Evaluation Information Evaluation Date 03/13/21 PT-OP-B Current Condition Start: 03/13/21 14:33 Freq: Status: Active Protocol: Document 03/13/21 12:00 DCW (Rec: 03/13/21 15:08 DCW [id number]) Current Condition History of Current Condition Onset Date 12/16/20 Current Complaints Hemiparesis, weakness, gait difficulty, decreased balance History of Current Condition Pt is a 65 year old female presenting three months s/p thalamic CVA. Pt presented to ED on 12/16/20 with sudden onset of left-sided weakness when waking up early in the AM to go to the bathroom. Pt noticed she could not more her left arm, tried to stand up, and fell over when her left leg was also unable to support her. The day after hospitalization, pt was transferred to [facility] for intensive rehab, notes she underwent 2.5 hours of PT/OT each day. Pt remained there for one months, and was then discharged home on January 13 with [facility], and since that time has been undergoing PT 2x/week and OT 3x/week, and was discharged from both disciplines earlier this week. Pt reports her left arm function is her biggest concern, and has been referred to outpatient OT for this, but also has difficulty with gait and balance. Pt wears an AFO on her left foot due to foot drop, and walks with a SPC. Admits she has had a few falls, but her balance has been a bit better since she left [facility] and has been slightly more stable at home. Treatment Goals Patient/Caregiver Goals I want to get back to normal function. I want to be able to walk independently without the cane, and use my arms like before. Really, I want to be able to live without depending on anyone, I was so independent before. PT-OP-C Subjective Start: 03/13/21 14:33 Freq: Status: Active Protocol: Document 05/19/21 08:17 SP (Rec: 05/19/21 09:48 SP [id number]) OP-PT Subjective Patient Comments Patient Comments Pt stated I feel like not going today. PT-OP-D Balance Start: 03/13/21 14:33 Freq: Status: Active Protocol: Document 05/15/21 12:00 DCW (Rec: 05/15/21 12:35 DCW [id number]) Balance Tests Hogan Balance Test Hogan Balance Test Score 48/56 Hogan Impairment Rating 1 to 19% Impaired (Score 45-55 ) Single Limb Standing Single Limb- Right 14 seconds Single Limb- Left 2 seconds Hogan Balance Assessment Evaluation Sitting to Standing Ability Independent w/out Hands Unsupported Stance Safely- 2 minutes Sitting Unsupported, Feet on Floor Safely- 2 minutes Standing to Sitting Ability Safely, Minimal Hand Use Transfer Ability Safely, Minimal Hand Use Unsupported Stance- Eyes Closed Safely, 10 seconds Unsupported Stance- Eyes Open Independent, 1 minute Reaching Forward Standing Safely, 5 inches Pick- Up Object From Floor Independent/Safe Look Behind Shoulder - Standing Shifts Weight Well Turning 360 Degrees Turns slowly, but safely Unsupported Stance, Alternating Feet on 4 Steps w/Supervision Stair Unsupported Tandem Stance Achieves Tandem Unilateral Leg Stance Lifts Leg/Unable to Hold Total Score Hogan Total Score (out of 56 points) 48 Hogan Impairment Rating 1 to 19% Impaired (Score 45-55 ) PT-OP-E Functional Tests Start: 03/13/21 14:33 Freq: Status: Active Protocol: Document 05/15/21 12:00 DCW (Rec: 05/15/21 12:35 DCW [id number]) Functional Tests 6 Minute Walk Test Distance 935' Device Used SPC Comments 2.60 Timed Up and Go (TUG) Score 11.54 Comments 3-trial average (11.67,11.57 , 11.40) using SPC TUG Impairment Rating 1 to <20% Impaired (Score 11) PT-OP-M Strength Start: 03/13/21 14:33 Freq: Status: Active Protocol: Document 05/15/21 12:00 DCW (Rec: 05/15/21 12:35 DCW [id number]) Hip Strength Hip Manual Muscle Testing Left Flexion (L2) 4- Good- Abduction 3+ Fair+ Adduction 4+ Good+ External Rotation 4- Good- Internal Rotation 3 Fair Knee Strength Knee Manual Muscle Testing Left Flexion (S2) 3- Fair- Extension (L3) 4 Good Ankle/Foot Strength Ankle and Foot Manual Muscle Testing Left Dorsiflexion (L4) 2- Poor- Plantarflexion (S1) 3 Fair PT-OP-Q Treatments Start: 03/13/21 14:33 Freq: Status: Active Protocol: Document 05/19/21 08:17 SP (Rec: 05/19/21 09:48 SP [id number]) Cardio Equipment Recumbent Elliptical (BiodUpdox) Duration (Minutes) 5 Resistance 5 Seat Position closest notch Other LEs, occasional use UEs: 25-35 RPMs, 319 total steps Gym Equipment Shuttle Recovery Bilateral Squats Details w/out L AFO Resistance 87# Shuttle Recovery Platform Unstable Reps/Time reps to tiring, cued slower pacing conc/ eccentric, knee alignment Unilateral Squats Details Left w/out AFO (heel 1.5 above platform bottom sceam)- soft knee/not lock Resistance 37# Shuttle Recovery Platform Stable Reps/Time reps to tiring, cued slower pacing conc/ eccentric, knee alignment w/ toes Neuro Re-Education Treatment Balance Activities 3 Details NBOS, Tandem Stance Surface firm Equipment rail Comments balance, head turns CG- 10%A More assist with LLe in back position no AFO PT-OP-R Modalities Start: 03/13/21 14:33 Freq: Status: Active Protocol: Document 05/19/21 08:17 SP (Rec: 05/19/21 09:48 SP [id number]) Electric Stimulation Electric Stimulation Micronesian Stimulation Body Location Left Anterior Tib & peroneals (2 pads) Duration (Minutes) 10 Intensity 31 Patient Position Sitting Comments 5 on, 5 off Dorsiflexion and EV, AAROM during contraction, manual and educated use of gait belt for self performance at home for carryover if wanted using R or LUE PT-OP-T Assessment and Plan Start: 03/13/21 14:33 Freq: Status: Active Protocol: Document 05/19/21 08:17 SP (Rec: 05/19/21 09:48 SP [id number]) Physical Therapy Assessment Goals Three Impairment Pt completes 6MWT with an average speed of 1.91 ft/sec Short Term Goal (STG) Pt to complete 6MWT with an average speed of at least 2.4 ft/sec for a total distance > 864' to show decreased risk of functional decline STG Duration Met Detention Goal (LTG) Pt to ambulate >1200' during 6 MWT to demonstrate a return to prior level of functional gait LTG Duration 07/15/21 Two Impairment Increased falls risk per Hogan (41/56) and TUG (13.73) scores Short Term Goal (STG) Pt to increase Hogan score by at least 5 points to 46/56 to demonstrate decreased falls risk STG Duration Met Porcelain Enamel Installer Goal (LTG) Pt to increase Hogan score by at least 5 points to 53/56 to demonstrate decreased falls risk LTG Duration 07/15/21 One Impairment Pt does not have an appropriate home exercise program Short Term Goal (STG) Pt to be independent and compliant with an appropriate HEP STG Duration Met Assessment Summary Assessment Pt improved in SL heel press and L ankle ROM into DF w/out AFO improved eccentric control this tx, improved soft knee time on tension shuttle recovery. Pt difficulty body spacial awareness of WB over LLE during uneven stance w/out AFO, better stability LLE in front position up to 30sec CGA , CG- 10%A LLE in back position. Physical Therapy Plan Frequency and Duration Frequency of Treatment 2x/Week Duration of Treatment Two months Plan of Care Start Date 05/15/21 Plan of Care End Date 07/15/21 Therapeutic Interventions Therapeutic Interventions Aquatic Therapy,Balance Training,Gait Training,Home Exercise Program,Manual Therapy,Neuromuscular Re- education,Patient/Caregiver Education,Self-Care/Home Management,Soft Tissue Mobilization,Therapeutic Exercises Modalities Cold Pack/Ice Massage,Electric Stimulation,Hot Packs Next Visit Focus/Plan Next Note Type Treatment Note Next Visit Plan Assess response to no use of AFO on LLE during shuttle recovery and uneven foam surface last tx. POC: Gait training, balance training, LE strengthening, functional mobility.
--- NOTE | 2021-05-21 11:14 | PT.OTN ---
Current Diagnoses Cerebral infarction, unspecified (05/21/21) Muscle weakness (generalized) (05/21/21) Other abnormalities of gait and mobility (05/21/21) Repeated falls (05/21/21) Other symptoms and signs involving the musculoskeletal system (05/21/21) Physical Therapy Treatment Note PT-OP-A Visit Information Start: 03/13/21 14:33 Freq: Status: Active Protocol: Document 05/21/21 10:30 DCW (Rec: 05/21/21 11:14 DCW [id number]) Out-Patient Physical Therapy Visit Information Visit Information Visit Type Treatment Note Visit Start Time 10:30 Visit Stop Time 11:15 Total Visit Minutes 45 Visit Number 18 Number of HYPERION ESSBASE DEVELOPER Visits 0 Evaluation Information Evaluation Date 03/13/21 PT-OP-B Current Condition Start: 03/13/21 14:33 Freq: Status: Active Protocol: Document 03/13/21 12:00 DCW (Rec: 03/13/21 15:08 DCW [id number]) Current Condition History of Current Condition Onset Date 12/16/20 Current Complaints Hemiparesis, weakness, gait difficulty, decreased balance History of Current Condition Pt is a 65 year old female presenting three months s/p thalamic CVA. Pt presented to ED on 12/16/20 with sudden onset of left-sided weakness when waking up early in the AM to go to the bathroom. Pt noticed she could not more her left arm, tried to stand up, and fell over when her left leg was also unable to support her. The day after hospitalization, pt was transferred to [facility] for intensive rehab, notes she underwent 2.5 hours of PT/OT each day. Pt remained there for one months, and was then discharged home on January 13 with [facility], and since that time has been undergoing PT 2x/week and OT 3x/week, and was discharged from both disciplines earlier this week. Pt reports her left arm function is her biggest concern, and has been referred to outpatient OT for this, but also has difficulty with gait and balance. Pt wears an AFO on her left foot due to foot drop, and walks with a SPC. Admits she has had a few falls, but her balance has been a bit better since she left [facility] and has been slightly more stable at home. Treatment Goals Patient/Caregiver Goals I want to get back to normal function. I want to be able to walk independently without the cane, and use my arms like before. Really, I want to be able to live without depending on anyone, I was so independent before. 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 PT-OP-D Balance Start: 03/13/21 14:33 Freq: Status: Active Protocol: Document 05/15/21 12:00 DCW (Rec: 05/15/21 12:35 DCW [id number]) Balance Tests Hogan Balance Test Hogan Balance Test Score 48/56 Hogan Impairment Rating 1 to 19% Impaired (Score 45-55 ) Single Limb Standing Single Limb- Right 14 seconds Single Limb- Left 2 seconds Hogan Balance Assessment Evaluation Sitting to Standing Ability Independent w/out Hands Unsupported Stance Safely- 2 minutes Sitting Unsupported, Feet on Floor Safely- 2 minutes Standing to Sitting Ability Safely, Minimal Hand Use Transfer Ability Safely, Minimal Hand Use Unsupported Stance- Eyes Closed Safely, 10 seconds Unsupported Stance- Eyes Open Independent, 1 minute Reaching Forward Standing Safely, 5 inches Pick- Up Object From Floor Independent/Safe Look Behind Shoulder - Standing Shifts Weight Well Turning 360 Degrees Turns slowly, but safely Unsupported Stance, Alternating Feet on 4 Steps w/Supervision Stair Unsupported Tandem Stance Achieves Tandem Unilateral Leg Stance Lifts Leg/Unable to Hold Total Score Hogan Total Score (out of 56 points) 48 Hogan Impairment Rating 1 to 19% Impaired (Score 45-55 ) PT-OP-E Functional Tests Start: 03/13/21 14:33 Freq: Status: Active Protocol: Document 05/15/21 12:00 DCW (Rec: 05/15/21 12:35 DCW [id number]) Functional Tests 6 Minute Walk Test Distance 935' Device Used SPC Comments 2.60 Timed Up and Go (TUG) Score 11.54 Comments 3-trial average (11.67,11.57 , 11.40) using SPC TUG Impairment Rating 1 to <20% Impaired (Score 11) PT-OP-M Strength Start: 03/13/21 14:33 Freq: Status: Active Protocol: Document 05/15/21 12:00 DCW (Rec: 05/15/21 12:35 DCW [id number]) Hip Strength Hip Manual Muscle Testing Left Flexion (L2) 4- Good- Abduction 3+ Fair+ Adduction 4+ Good+ External Rotation 4- Good- Internal Rotation 3 Fair Knee Strength Knee Manual Muscle Testing Left Flexion (S2) 3- Fair- Extension (L3) 4 Good Ankle/Foot Strength Ankle and Foot Manual Muscle Testing Left Dorsiflexion (L4) 2- Poor- Plantarflexion (S1) 3 Fair PT-OP-Q Treatments Start: 03/13/21 14:33 Freq: Status: Active Protocol: Document 05/21/21 10:30 DCW (Rec: 05/21/21 11:14 DCW [id number]) Cardio Equipment Recumbent Elliptical (Biodex) Duration (Minutes) 5 Resistance 5 Seat Position 1 Gym Equipment Shuttle Recovery Bilateral Squats Resistance 87# Shuttle Recovery Platform Unstable Reps/Time reps to tiring Unilateral Squats Resistance 37# Shuttle Recovery Platform Stable Reps/Time reps to tiring Shuttle Balance Red Details WBOS (EO/EC), Staggered Therapeutic Exercises Sitting Exercises 3 Sitting Exercise Name HS curls Side left Resistance Lv 2 Equipment Used T-band 2 Sitting Exercise Name Hip Abduction Side bilateral Resistance Lv 2 Equipment Used T-band 1 Sitting Exercise Name LAQ Side left Resistance 5# PT-OP-R Modalities Start: 03/13/21 14:33 Freq: Status: Active Protocol: Document 05/21/21 10:30 DCW (Rec: 05/21/21 11:14 DCW [id number]) Electric Stimulation Electric Stimulation [place] Stimulation Body Location Left Anterior Tib Duration (Minutes) 10 Intensity 40 Patient Position Sitting Comments 5 on, 5 off Dorsiflexion AROM during contraction PT-OP-T Assessment and Plan Start: 03/13/21 14:33 Freq: Status: Active Protocol: Document 05/21/21 10:30 DCW (Rec: 05/21/21 11:14 DCW [id number]) Physical Therapy Assessment Impairments Impairments Activity Tolerance,Balance, Functional Activities, Functional Mobility,Gait,ROM, Soft Tissue Mobility,Strength, Transfers Other Concerns Fall Risk Increased falls risk per Hogan (41/56) and TUG (13.73) scores Goals Three Impairment Pt completes 6MWT with an average speed of 1.91 ft/sec Short Term Goal (STG) Pt to complete 6MWT with an average speed of at least 2.4 ft/sec for a total distance > 864' to show decreased risk of functional decline STG Duration Met Custodial Goal (LTG) Pt to ambulate >1200' during 6 MWT to demonstrate a return to prior level of functional gait LTG Duration 07/15/21 Two Impairment Increased falls risk per Hogan (41/56) and TUG (13.73) scores Short Term Goal (STG) Pt to increase Hogan score by at least 5 points to 46/56 to demonstrate decreased falls risk STG Duration Met Men'S Garment Fitter Goal (LTG) Pt to increase Hogan score by at least 5 points to 53/56 to demonstrate decreased falls risk LTG Duration 07/15/21 One Impairment Pt does not have an appropriate home exercise program Short Term Goal (STG) Pt to be independent and compliant with an appropriate HEP STG Duration Met Assessment Summary Assessment Pt continues to tolerate treatment well, will attempt to increase resistance next visit on most activities. Physical Therapy Plan Frequency and Duration Frequency of Treatment 2x/Week Duration of Treatment Two months Plan of Care Start Date 05/15/21 Plan of Care End Date 07/15/21 Therapeutic Interventions Therapeutic Interventions Aquatic Therapy,Balance Training,Gait Training,Home Exercise Program,Manual Therapy,Neuromuscular Re- education,Patient/Caregiver Education,Self-Care/Home Management,Soft Tissue Mobilization,Therapeutic Exercises Modalities Cold Pack/Ice Massage,Electric Stimulation,Hot Packs Next Visit Focus/Plan Next Note Type Treatment Note Next Visit Plan Assess response to no use of AFO on LLE during shuttle recovery and uneven foam surface last tx. POC: Gait training, balance training, LE strengthening, functional mobility.
--- NOTE | 2021-06-01 11:12 | PT.OTN ---
Current Diagnoses Cerebral infarction, unspecified (06/01/21) Muscle weakness (generalized) (06/01/21) Other abnormalities of gait and mobility (06/01/21) Repeated falls (06/01/21) Other symptoms and signs involving the musculoskeletal system (06/01/21) Physical Therapy Treatment Note PT-OP-A Visit Information Start: 03/13/21 14:33 Freq: Status: Active Protocol: Document 06/01/21 10:30 DCW (Rec: 06/01/21 11:12 DCW [id number]) Out-Patient Physical Therapy Visit Information Visit Information Visit Type Treatment Note Visit Start Time 10:30 Visit Stop Time 11:15 Total Visit Minutes 45 Visit Number 19 Number of BOAT LOADER HELPER Visits 0 Evaluation Information Evaluation Date 03/13/21 PT-OP-B Current Condition Start: 03/13/21 14:33 Freq: Status: Active Protocol: Document 03/13/21 12:00 DCW (Rec: 03/13/21 15:08 DCW [id number]) Current Condition History of Current Condition Onset Date 12/16/20 Current Complaints Hemiparesis, weakness, gait difficulty, decreased balance History of Current Condition Pt is a 65 year old female presenting three months s/p thalamic CVA. Pt presented to ED on 12/16/20 with sudden onset of left-sided weakness when waking up early in the AM to go to the bathroom. Pt noticed she could not more her left arm, tried to stand up, and fell over when her left leg was also unable to support her. The day after hospitalization, pt was transferred to [facility] for intensive rehab, notes she underwent 2.5 hours of PT/OT each day. Pt remained there for one months, and was then discharged home on January 13 with [facility], and since that time has been undergoing PT 2x/week and OT 3x/week, and was discharged from both disciplines earlier this week. Pt reports her left arm function is her biggest concern, and has been referred to outpatient OT for this, but also has difficulty with gait and balance. Pt wears an AFO on her left foot due to foot drop, and walks with a SPC. Admits she has had a few falls, but her balance has been a bit better since she left [facility] and has been slightly more stable at home. Treatment Goals Patient/Caregiver Goals I want to get back to normal function. I want to be able to walk independently without the cane, and use my arms like before. Really, I want to be able to live without depending on anyone, I was so independent before. PT-OP-C Subjective Start: 03/13/21 14:33 Freq: Status: Active Protocol: Document 06/01/21 10:30 DCW (Rec: 06/01/21 11:12 DCW [id number]) OP-PT Subjective Patient Comments Patient Comments Pt returns from her short trip to [place]. Reports she did a lot of walking on the beach, admits to one little fall. PT-OP-D Balance Start: 03/13/21 14:33 Freq: Status: Active Protocol: Document 05/15/21 12:00 DCW (Rec: 05/15/21 12:35 DCW [id number]) Balance Tests Hogan Balance Test Hogan Balance Test Score 48/56 Hogan Impairment Rating 1 to 19% Impaired (Score 45-55 ) Single Limb Standing Single Limb- Right 14 seconds Single Limb- Left 2 seconds Hogan Balance Assessment Evaluation Sitting to Standing Ability Independent w/out Hands Unsupported Stance Safely- 2 minutes Sitting Unsupported, Feet on Floor Safely- 2 minutes Standing to Sitting Ability Safely, Minimal Hand Use Transfer Ability Safely, Minimal Hand Use Unsupported Stance- Eyes Closed Safely, 10 seconds Unsupported Stance- Eyes Open Independent, 1 minute Reaching Forward Standing Safely, 5 inches Pick- Up Object From Floor Independent/Safe Look Behind Shoulder - Standing Shifts Weight Well Turning 360 Degrees Turns slowly, but safely Unsupported Stance, Alternating Feet on 4 Steps w/Supervision Stair Unsupported Tandem Stance Achieves Tandem Unilateral Leg Stance Lifts Leg/Unable to Hold Total Score Hogan Total Score (out of 56 points) 48 Hogan Impairment Rating 1 to 19% Impaired (Score 45-55 ) PT-OP-E Functional Tests Start: 03/13/21 14:33 Freq: Status: Active Protocol: Document 05/15/21 12:00 DCW (Rec: 05/15/21 12:35 DCW [id number]) Functional Tests 6 Minute Walk Test Distance 935' Device Used [facility] [place] 2.60 Timed Up and Go (TUG) Score 11.54 Comments 3-trial average (11.67,11.57 , 11.40) using SPC TUG Impairment Rating 1 to <20% Impaired (Score 11) PT-OP-M Strength Start: 03/13/21 14:33 Freq: Status: Active Protocol: Document 05/15/21 12:00 DCW (Rec: 05/15/21 12:35 DCW [id number]) Hip Strength Hip Manual Muscle Testing Left Flexion (L2) 4- Good- Abduction 3+ Fair+ Adduction 4+ Good+ External Rotation 4- Good- Internal Rotation 3 Fair Knee Strength Knee Manual Muscle Testing Left Flexion (S2) 3- Fair- Extension (L3) 4 Good Ankle/Foot Strength Ankle and Foot Manual Muscle Testing Left Dorsiflexion (L4) 2- Poor- Plantarflexion (S1) 3 Fair PT-OP-Q Treatments Start: 03/13/21 14:33 Freq: Status: Active Protocol: Document 06/01/21 10:30 DCW (Rec: 06/01/21 11:12 DCW [id number]) Cardio Equipment Recumbent Stepper (Sci-Fit) Duration (Minutes) 5 Resistance 5 Seat Position 5 Gym Equipment Shuttle Recovery Bilateral Squats Resistance 87# Shuttle Recovery Platform Unstable Reps/Time reps to tiring Unilateral Squats Resistance 37# Shuttle Recovery Platform Stable Reps/Time reps to tiring Shuttle Balance Red Details WBOS (EO/EC), Staggered Neuro Re-Education Treatment Balance Activities 3 Details NBOS, Tandem Stance Surface firm Equipment rail 2 Details SLS Surface Firm Equipment // bars, contact assist during LLE, hand hover bar RLE Comments Therapist provided anterior L knee support as needed during LLE to prevent buckling, unsteady. PT-OP-R Modalities Start: 03/13/21 14:33 Freq: Status: Active Protocol: Document 06/01/21 10:30 DCW (Rec: 06/01/21 11:12 DCW [id number]) Electric Stimulation Electric Stimulation [place] Stimulation Body Location Left Anterior Tib Duration (Minutes) 10 Intensity 39 Patient Position Sitting Comments 5 on, 5 off Dorsiflexion AROM during contraction PT-OP-T Assessment and Plan Start: 03/13/21 14:33 Freq: Status: Active Protocol: Document 06/01/21 10:30 DCW (Rec: 06/01/21 11:12 DCW [id number]) Physical Therapy Assessment Impairments Impairments Activity Tolerance,Balance, Functional Activities, Functional Mobility,Gait,ROM, Soft Tissue Mobility,Strength, Transfers Other Concerns Fall Risk Increased falls risk per Hogan (41/56) and TUG (13.73) scores Goals Three Impairment Pt completes 6MWT with an average speed of 1.91 ft/sec Short Term Goal (STG) Pt to complete 6MWT with an average speed of at least 2.4 ft/sec for a total distance > 864' to show decreased risk of functional decline STG Duration Met Group Home Goal (LTG) Pt to ambulate >1200' during 6 MWT to demonstrate a return to prior level of functional gait LTG Duration 07/15/21 Two Impairment Increased falls risk per Hogan (41/56) and TUG (13.73) scores Short Term Goal (STG) Pt to increase Hogan score by at least 5 points to 46/56 to demonstrate decreased falls risk STG Duration Met Quantitative Developer Goal (LTG) Pt to increase Ohgan score by at least 5 points to 53/56 to demonstrate decreased falls risk LTG Duration 07/15/21 One Impairment Pt does not have an appropriate home exercise program Short Term Goal (STG) Pt to be independent and compliant with an appropriate HEP STG Duration Met Assessment Summary Assessment Pt slightly more fatigued today after a week off from therapy, however is demonstrating improved stability during gait. Physical Therapy Plan Frequency and Duration Frequency of Treatment 2x/Week Duration of Treatment Two months Plan of Care Start Date 05/15/21 Plan of Care End Date 07/15/21 Therapeutic Interventions Therapeutic Interventions Aquatic Therapy,Balance Training,Gait Training,Home Exercise Program,Manual Therapy,Neuromuscular Re- education,Patient/Caregiver Education,Self-Care/Home Management,Soft Tissue Mobilization,Therapeutic Exercises Modalities Cold Pack/Ice Massage,Electric Stimulation,Hot Packs Next Visit Focus/Plan Next Note Type Treatment Note Next Visit Plan Assess response to no use of AFO on LLE during shuttle recovery and uneven foam surface last tx. POC: Gait training, balance training, LE strengthening, functional mobility.
--- NOTE | 2021-06-04 11:16 | PT.OTN ---
Current Diagnoses Cerebral infarction, unspecified (06/04/21) Muscle weakness (generalized) (06/04/21) Other abnormalities of gait and mobility (06/04/21) Repeated falls (06/04/21) Other symptoms and signs involving the musculoskeletal system (06/04/21) Physical Therapy Treatment Note PT-OP-A Visit Information Start: 03/13/21 14:33 Freq: Status: Active Protocol: Document 06/04/21 10:30 DCW (Rec: 06/04/21 11:16 DCW [id number]) Out-Patient Physical Therapy Visit Information Visit Information Visit Type Treatment Note Visit Start Time 10:30 Visit Stop Time 11:15 Total Visit Minutes 45 Visit Number 20 Number of INTERLIBRARY LOAN SERVICES LIBRARIAN Visits 0 Evaluation Information Evaluation Date 03/13/21 PT-OP-B Current Condition Start: 03/13/21 14:33 Freq: Status: Active Protocol: Document 03/13/21 12:00 DCW (Rec: 03/13/21 15:08 DCW [id number]) Current Condition History of Current Condition Onset Date 12/16/20 Current Complaints Hemiparesis, weakness, gait difficulty, decreased balance History of Current Condition Pt is a 65 year old female presenting three months s/p thalamic CVA. Pt presented to ED on 12/16/20 with sudden onset of left-sided weakness when waking up early in the AM to go to the bathroom. Pt noticed she could not more her left arm, tried to stand up, and fell over when her left leg was also unable to support her. The day after hospitalization, pt was transferred to [facility] for intensive rehab, notes she underwent 2.5 hours of PT/OT each day. Pt remained there for one months, and was then discharged home on January 13 with [facility], and since that time has been undergoing PT 2x/week and OT 3x/week, and was discharged from both disciplines earlier this week. Pt reports her left arm function is her biggest concern, and has been referred to outpatient OT for this, but also has difficulty with gait and balance. Pt wears an AFO on her left foot due to foot drop, and walks with a SPC. Admits she has had a few falls, but her balance has been a bit better since she left [facility] and has been slightly more stable at home. Treatment Goals Patient/Caregiver Goals I want to get back to normal function. I want to be able to walk independently without the cane, and use my arms like before. Really, I want to be able to live without depending on anyone, I was so independent before. PT-OP-C Subjective Start: 03/13/21 14:33 Freq: Status: Active Protocol: Document 06/04/21 10:30 DCW (Rec: 06/04/21 11:16 DCW [id number]) OP-PT Subjective Patient Comments Patient Comments Pt reports she is feeling pretty good today. PT-OP-D Balance Start: 03/13/21 14:33 Freq: Status: Active Protocol: Document 05/15/21 12:00 DCW (Rec: 05/15/21 12:35 DCW [id number]) Balance Tests Hogan Balance Test Hogan Balance Test Score 48/56 Hogan Impairment Rating 1 to 19% Impaired (Score 45-55 ) Single Limb Standing Single Limb- Right 14 seconds Single Limb- Left 2 seconds Hogan Balance Assessment Evaluation Sitting to Standing Ability Independent w/out Hands Unsupported Stance Safely- 2 minutes Sitting Unsupported, Feet on Floor Safely- 2 minutes Standing to Sitting Ability Safely, Minimal Hand Use Transfer Ability Safely, Minimal Hand Use Unsupported Stance- Eyes Closed Safely, 10 seconds Unsupported Stance- Eyes Open Independent, 1 minute Reaching Forward Standing Safely, 5 inches Pick- Up Object From Floor Independent/Safe Look Behind Shoulder - Standing Shifts Weight Well Turning 360 Degrees Turns slowly, but safely Unsupported Stance, Alternating Feet on 4 Steps w/Supervision Stair Unsupported Tandem Stance Achieves Tandem Unilateral Leg Stance Lifts Leg/Unable to Hold Total Score Hogan Total Score (out of 56 points) 48 Hogan Impairment Rating 1 to 19% Impaired (Score 45-55 ) PT-OP-E Functional Tests Start: 03/13/21 14:33 Freq: Status: Active Protocol: Document 05/15/21 12:00 DCW (Rec: 05/15/21 12:35 DCW [id number]) Functional Tests 6 Minute Walk Test Distance 935' Device Used SPC Comments 2.60 Timed Up and Go (TUG) Score 11.54 Comments 3-trial average (11.67,11.57 , 11.40) using SPC TUG Impairment Rating 1 to <20% Impaired (Score 11) PT-OP-M Strength Start: 03/13/21 14:33 Freq: Status: Active Protocol: Document 05/15/21 12:00 DCW (Rec: 05/15/21 12:35 DCW [id number]) Hip Strength Hip Manual Muscle Testing Left Flexion (L2) 4- Good- Abduction 3+ Fair+ Adduction 4+ Good+ External Rotation 4- Good- Internal Rotation 3 Fair Knee Strength Knee Manual Muscle Testing Left Flexion (S2) 3- Fair- Extension (L3) 4 Good Ankle/Foot Strength Ankle and Foot Manual Muscle Testing Left Dorsiflexion (L4) 2- Poor- Plantarflexion (S1) 3 Fair PT-OP-Q Treatments Start: 03/13/21 14:33 Freq: Status: Active Protocol: Document 06/04/21 10:30 DCW (Rec: 06/04/21 11:16 DCW [id number]) Cardio Equipment Recumbent Elliptical (Biodex) Duration (Minutes) 5 Resistance 5 Seat Position 1 Gym Equipment Shuttle Recovery Bilateral Squats Resistance 87# Shuttle Recovery Platform Unstable Reps/Time reps to tiring Unilateral Squats Resistance 37# Shuttle Recovery Platform Stable Reps/Time reps to tiring Shuttle Balance Red Details WBOS (EO/EC), Staggered ( Balloon volley) Neuro Re-Education Treatment Balance Activities 2 Details SLS Surface Firm Equipment // bars, contact assist during LLE, hand hover bar RLE PT-OP-R Modalities Start: 03/13/21 14:33 Freq: Status: Active Protocol: Document 06/04/21 10:30 DCW (Rec: 06/04/21 11:16 DCW [id number]) Electric Stimulation Electric Stimulation Malawian Stimulation Body Location Left Anterior Tib Duration (Minutes) 10 Intensity 43 Patient Position Sitting Comments 5 on, 5 off Dorsiflexion AROM during contraction PT-OP-T Assessment and Plan Start: 03/13/21 14:33 Freq: Status: Active Protocol: Document 06/04/21 10:30 DCW (Rec: 06/04/21 11:16 DCW [id number]) Physical Therapy Assessment Impairments Impairments Activity Tolerance,Balance, Functional Activities, Functional Mobility,Gait,ROM, Soft Tissue Mobility,Strength, Transfers Other Concerns Fall Risk Increased falls risk per Hogan (41/56) and TUG (13.73) scores Goals Three Impairment Pt completes 6MWT with an average speed of 1.91 ft/sec Short Term Goal (STG) Pt to complete 6MWT with an average speed of at least 2.4 ft/sec for a total distance > 864' to show decreased risk of functional decline STG Duration Met Brand Coordinator Goal (LTG) Pt to ambulate >1200' during 6 MWT to demonstrate a return to prior level of functional gait LTG Duration 07/15/21 Two Impairment Increased falls risk per Hogan (41/56) and TUG (13.73) scores Short Term Goal (STG) Pt to increase Hogan score by at least 5 points to 46/56 to demonstrate decreased falls risk STG Duration Met Jail Goal (LTG) Pt to increase Hogan score by at least 5 points to 53/56 to demonstrate decreased falls risk LTG Duration 07/15/21 One Impairment Pt does not have an appropriate home exercise program Short Term Goal (STG) Pt to be independent and compliant with an appropriate HEP STG Duration Met Assessment Summary Assessment Pt did very well with addition of balloon volley to Shuttle balance, walking with improved confidence. Physical Therapy Plan Frequency and Duration Frequency of Treatment 2x/Week Duration of Treatment Two months Plan of Care Start Date 05/15/21 Plan of Care End Date 07/15/21 Therapeutic Interventions Therapeutic Interventions Aquatic Therapy,Balance Training,Gait Training,Home Exercise Program,Manual Therapy,Neuromuscular Re- education,Patient/Caregiver Education,Self-Care/Home Management,Soft Tissue Mobilization,Therapeutic Exercises Modalities Cold Pack/Ice Massage,Electric Stimulation,Hot Packs Next Visit Focus/Plan Next Note Type Treatment Note Next Visit Plan Assess response to no use of AFO on LLE during shuttle recovery and uneven foam surface last tx. POC: Gait training, balance training, LE strengthening, functional mobility.
--- NOTE | 2021-06-08 11:14 | PT.OTN ---
Current Diagnoses Cerebral infarction, unspecified (06/08/21) Muscle weakness (generalized) (06/08/21) Other abnormalities of gait and mobility (06/08/21) Repeated falls (06/08/21) Other symptoms and signs involving the musculoskeletal system (06/08/21) Physical Therapy Treatment Note PT-OP-A Visit Information Start: 03/13/21 14:33 Freq: Status: Active Protocol: Document 06/08/21 10:30 DCW (Rec: 06/08/21 11:14 DCW [id number]) Out-Patient Physical Therapy Visit Information Visit Information Visit Type Treatment Note Visit Start Time 10:30 Visit Stop Time 11:15 Total Visit Minutes 45 Visit Number 21 Number of SWIMMING POOL SERVICER Visits 0 Evaluation Information Evaluation Date 03/13/21 PT-OP-B Current Condition Start: 03/13/21 14:33 Freq: Status: Active Protocol: Document 03/13/21 12:00 DCW (Rec: 03/13/21 15:08 DCW [id number]) Current Condition History of Current Condition Onset Date 12/16/20 Current Complaints Hemiparesis, weakness, gait difficulty, decreased balance History of Current Condition Pt is a 65 year old female presenting three months s/p thalamic CVA. Pt presented to ED on 12/16/20 with sudden onset of left-sided weakness when waking up early in the AM to go to the bathroom. Pt noticed she could not more her left arm, tried to stand up, and fell over when her left leg was also unable to support her. The day after hospitalization, pt was transferred to [facility] for intensive rehab, notes she underwent 2.5 hours of PT/OT each day. Pt remained there for one months, and was then discharged home on January 13 with [facility], and since that time has been undergoing PT 2x/week and OT 3x/week, and was discharged from both disciplines earlier this week. Pt reports her left arm function is her biggest concern, and has been referred to outpatient OT for this, but also has difficulty with gait and balance. Pt wears an AFO on her left foot due to foot drop, and walks with a SPC. Admits she has had a few falls, but her balance has been a bit better since she left [facility] and has been slightly more stable at home. Treatment Goals Patient/Caregiver Goals I want to get back to normal function. I want to be able to walk independently without the cane, and use my arms like before. Really, I want to be able to live without depending on anyone, I was so independent before. PT-OP-C Subjective Start: 03/13/21 14:33 Freq: Status: Active Protocol: Document 06/08/21 10:30 DCW (Rec: 06/08/21 11:14 DCW [id number]) OP-PT Subjective Patient Comments Patient Comments Pt reports she is doing well today PT-OP-D Balance Start: 03/13/21 14:33 Freq: Status: Active Protocol: Document 05/15/21 12:00 DCW (Rec: 05/15/21 12:35 DCW [id number]) Balance Tests Hogan Balance Test Hogan Balance Test Score 48/56 Hogan Impairment Rating 1 to 19% Impaired (Score 45-55 ) Single Limb Standing Single Limb- Right 14 seconds Single Limb- Left 2 seconds Hogan Balance Assessment Evaluation Sitting to Standing Ability Independent w/out Hands Unsupported Stance Safely- 2 minutes Sitting Unsupported, Feet on Floor Safely- 2 minutes Standing to Sitting Ability Safely, Minimal Hand Use Transfer Ability Safely, Minimal Hand Use Unsupported Stance- Eyes Closed Safely, 10 seconds Unsupported Stance- Eyes Open Independent, 1 minute Reaching Forward Standing Safely, 5 inches Pick- Up Object From Floor Independent/Safe Look Behind Shoulder - Standing Shifts Weight Well Turning 360 Degrees Turns slowly, but safely Unsupported Stance, Alternating Feet on 4 Steps w/Supervision Stair Unsupported Tandem Stance Achieves Tandem Unilateral Leg Stance Lifts Leg/Unable to Hold Total Score Hogan Total Score (out of 56 points) 48 Hogan Impairment Rating 1 to 19% Impaired (Score 45-55 ) PT-OP-E Functional Tests Start: 03/13/21 14:33 Freq: Status: Active Protocol: Document 05/15/21 12:00 DCW (Rec: 05/15/21 12:35 DCW [id number]) Functional Tests 6 Minute Walk Test Distance 935' Device Used [facility] Comments 2.60 Timed Up and Go (TUG) Score 11.54 Comments 3-trial average (11.67,11.57 , 11.40) using SPC TUG Impairment Rating 1 to <20% Impaired (Score 11) PT-OP-M Strength Start: 03/13/21 14:33 Freq: Status: Active Protocol: Document 05/15/21 12:00 DCW (Rec: 05/15/21 12:35 DCW [id number]) Hip Strength Hip Manual Muscle Testing Left Flexion (L2) 4- Good- Abduction 3+ Fair+ Adduction 4+ Good+ External Rotation 4- Good- Internal Rotation 3 Fair Knee Strength Knee Manual Muscle Testing Left Flexion (S2) 3- Fair- Extension (L3) 4 Good Ankle/Foot Strength Ankle and Foot Manual Muscle Testing Left Dorsiflexion (L4) 2- Poor- Plantarflexion (S1) 3 Fair PT-OP-Q Treatments Start: 03/13/21 14:33 Freq: Status: Active Protocol: Document 06/08/21 10:30 DCW (Rec: 06/08/21 11:14 DCW [id number]) Cardio Equipment Recumbent Elliptical (Biodex) Duration (Minutes) 5 Resistance 5 Seat Position 1 Gym Equipment Shuttle Recovery Bilateral Squats Resistance 87# Shuttle Recovery Platform Unstable Reps/Time reps to tiring Unilateral Squats Resistance 37# Shuttle Recovery Platform Stable Reps/Time reps to tiring Shuttle Balance Red Details WBOS (EO/EC), Staggered ( Balloon volley) Neuro Re-Education Treatment Balance Activities 2 Details SLS Surface Firm Equipment // bars, contact assist during LLE, hand hover bar RLE Comments /s AFO PT-OP-R Modalities Start: 03/13/21 14:33 Freq: Status: Active Protocol: Document 06/08/21 10:30 DCW (Rec: 06/08/21 11:14 DCW [id number]) Electric Stimulation Electric Stimulation Kenyan Stimulation Body Location Left Anterior Tib Duration (Minutes) 10 Intensity 41 Patient Position Sitting Comments 5 on, 5 off Dorsiflexion AROM during contraction PT-OP-T Assessment and Plan Start: 03/13/21 14:33 Freq: Status: Active Protocol: Document 06/08/21 10:30 DCW (Rec: 06/08/21 11:14 DCW [id number]) Physical Therapy Assessment Impairments Impairments Activity Tolerance,Balance, Functional Activities, Functional Mobility,Gait,ROM, Soft Tissue Mobility,Strength, Transfers Other Concerns Fall Risk Increased falls risk per Hogan (41/56) and TUG (13.73) scores Goals Three Impairment Pt completes 6MWT with an average speed of 1.91 ft/sec Short Term Goal (STG) Pt to complete 6MWT with an average speed of at least 2.4 ft/sec for a total distance > 864' to show decreased risk of functional decline STG Duration Met Entry Specialists Goal (LTG) Pt to ambulate >1200' during 6 MWT to demonstrate a return to prior level of functional gait LTG Duration 07/15/21 Two Impairment Increased falls risk per Hogan (41/56) and TUG (13.73) scores Short Term Goal (STG) Pt to increase Hogan score by at least 5 points to 46/56 to demonstrate decreased falls risk STG Duration Met Nursing Home Goal (LTG) Pt to increase Hogan score by at least 5 points to 53/56 to demonstrate decreased falls risk LTG Duration 07/15/21 One Impairment Pt does not have an appropriate home exercise program Short Term Goal (STG) Pt to be independent and compliant with an appropriate HEP STG Duration Met Assessment Summary Assessment Pt obviously struggled today attempting SLS without her AFO , but is otherwise improving her gait and stability. Physical Therapy Plan Frequency and Duration Frequency of Treatment 2x/Week Duration of Treatment Two months Plan of Care Start Date 05/15/21 Plan of Care End Date 07/15/21 Therapeutic Interventions Therapeutic Interventions Aquatic Therapy,Balance Training,Gait Training,Home Exercise Program,Manual Therapy,Neuromuscular Re- education,Patient/Caregiver Education,Self-Care/Home Management,Soft Tissue Mobilization,Therapeutic Exercises Modalities Cold Pack/Ice Massage,Electric Stimulation,Hot Packs Next Visit Focus/Plan Next Note Type Treatment Note Next Visit Plan Assess response to no use of AFO on LLE during shuttle recovery and uneven foam surface last tx. POC: Gait training, balance training, LE strengthening, functional mobility.
--- NOTE | 2021-06-11 11:16 | PT.OTN ---
Current Diagnoses Cerebral infarction, unspecified (06/11/21) Muscle weakness (generalized) (06/11/21) Other abnormalities of gait and mobility (06/11/21) Repeated falls (06/11/21) Other symptoms and signs involving the musculoskeletal system (06/11/21) Physical Therapy Treatment Note PT-OP-A Visit Information Start: 03/13/21 14:33 Freq: Status: Active Protocol: Document 06/11/21 10:30 DCW (Rec: 06/11/21 11:15 DCW [id number]) Out-Patient Physical Therapy Visit Information Visit Information Visit Type Treatment Note Visit Start Time 10:30 Visit Stop Time 11:15 Total Visit Minutes 45 Visit Number 22 Number of CASH REGISTER MECHANIC Visits 0 Evaluation Information Evaluation Date 03/13/21 PT-OP-B Current Condition Start: 03/13/21 14:33 Freq: Status: Active Protocol: Document 03/13/21 12:00 DCW (Rec: 03/13/21 15:08 DCW [id number]) Current Condition History of Current Condition Onset Date 12/16/20 Current Complaints Hemiparesis, weakness, gait difficulty, decreased balance History of Current Condition Pt is a 65 year old female presenting three months s/p thalamic CVA. Pt presented to ED on 12/16/20 with sudden onset of left-sided weakness when waking up early in the AM to go to the bathroom. Pt noticed she could not more her left arm, tried to stand up, and fell over when her left leg was also unable to support her. The day after hospitalization, pt was transferred to [facility] for intensive rehab, notes she underwent 2.5 hours of PT/OT each day. Pt remained there for one months, and was then discharged home on January 13 with [facility], and since that time has been undergoing PT 2x/week and OT 3x/week, and was discharged from both disciplines earlier this week. Pt reports her left arm function is her biggest concern, and has been referred to outpatient OT for this, but also has difficulty with gait and balance. Pt wears an AFO on her left foot due to foot drop, and walks with a SPC. Admits she has had a few falls, but her balance has been a bit better since she left [facility] and has been slightly more stable at home. Treatment Goals Patient/Caregiver Goals I want to get back to normal function. I want to be able to walk independently without the cane, and use my arms like before. Really, I want to be able to live without depending on anyone, I was so independent before. PT-OP-C Subjective Start: 03/13/21 14:33 Freq: Status: Active Protocol: Document 06/11/21 10:30 DCW (Rec: 06/11/21 11:15 DCW [id number]) OP-PT Subjective Patient Comments Patient Comments Pt okay today, no notable changes. PT-OP-D Balance Start: 03/13/21 14:33 Freq: Status: Active Protocol: Document 05/15/21 12:00 DCW (Rec: 05/15/21 12:35 DCW [id number]) Balance Tests Hogan Balance Test Hogan Balance Test Score 48/56 Hogan Impairment Rating 1 to 19% Impaired (Score 45-55 ) Single Limb Standing Single Limb- Right 14 seconds Single Limb- Left 2 seconds Hogan Balance Assessment Evaluation Sitting to Standing Ability Independent w/out Hands Unsupported Stance Safely- 2 minutes Sitting Unsupported, Feet on Floor Safely- 2 minutes Standing to Sitting Ability Safely, Minimal Hand Use Transfer Ability Safely, Minimal Hand Use Unsupported Stance- Eyes Closed Safely, 10 seconds Unsupported Stance- Eyes Open Independent, 1 minute Reaching Forward Standing Safely, 5 inches Pick- Up Object From Floor Independent/Safe Look Behind Shoulder - Standing Shifts Weight Well Turning 360 Degrees Turns slowly, but safely Unsupported Stance, Alternating Feet on 4 Steps w/Supervision Stair Unsupported Tandem Stance Achieves Tandem Unilateral Leg Stance Lifts Leg/Unable to Hold Total Score Hogan Total Score (out of 56 points) 48 Hogan Impairment Rating 1 to 19% Impaired (Score 45-55 ) PT-OP-E Functional Tests Start: 03/13/21 14:33 Freq: Status: Active Protocol: Document 05/15/21 12:00 DCW (Rec: 05/15/21 12:35 DCW [id number]) Functional Tests 6 Minute Walk Test Distance 935' Device Used [facility] Comments 2.60 Timed Up and Go (TUG) Score 11.54 Comments 3-trial average (11.67,11.57 , 11.40) using SPC TUG Impairment Rating 1 to <20% Impaired (Score 11) PT-OP-M Strength Start: 03/13/21 14:33 Freq: Status: Active Protocol: Document 05/15/21 12:00 DCW (Rec: 05/15/21 12:35 DCW [id number]) Hip Strength Hip Manual Muscle Testing Left Flexion (L2) 4- Good- Abduction 3+ Fair+ Adduction 4+ Good+ External Rotation 4- Good- Internal Rotation 3 Fair Knee Strength Knee Manual Muscle Testing Left Flexion (S2) 3- Fair- Extension (L3) 4 Good Ankle/Foot Strength Ankle and Foot Manual Muscle Testing Left Dorsiflexion (L4) 2- Poor- Plantarflexion (S1) 3 Fair PT-OP-Q Treatments Start: 03/13/21 14:33 Freq: Status: Active Protocol: Document 06/11/21 10:30 DCW (Rec: 06/11/21 11:15 DCW [id number]) Cardio Equipment Recumbent Elliptical (Biodex) Duration (Minutes) 5 Resistance 5 Seat Position 1 Gym Equipment Shuttle Recovery Bilateral Squats Resistance 87# Shuttle Recovery Platform Unstable Reps/Time reps to tiring Unilateral Squats Resistance 37# Shuttle Recovery Platform Stable Reps/Time reps to tiring Shuttle Balance Red Details WBOS (EO/EC), Staggered ( Balloon volley) Neuro Re-Education Treatment Balance Activities 3 Details NBOS, Tandem Stance Surface firm Equipment rail Comments /s AFO 2 Details SLS Surface Firm Equipment // bars, contact assist during LLE, hand hover bar RLE Comments /s AFO PT-OP-R Modalities Start: 03/13/21 14:33 Freq: Status: Active Protocol: Document 06/11/21 10:30 DCW (Rec: 06/11/21 11:15 DCW [id number]) Electric Stimulation Electric Stimulation Hungarian Stimulation Body Location Left Anterior Tib Duration (Minutes) 10 Intensity 41 Patient Position Sitting Comments 5 on, 5 off Dorsiflexion AROM during contraction PT-OP-T Assessment and Plan Start: 03/13/21 14:33 Freq: Status: Active Protocol: Document 06/11/21 10:30 DCW (Rec: 06/11/21 11:15 DCW [id number]) Physical Therapy Assessment Impairments Impairments Activity Tolerance,Balance, Functional Activities, Functional Mobility,Gait,ROM, Soft Tissue Mobility,Strength, Transfers Other Concerns Fall Risk Increased falls risk per Hogan (41/56) and TUG (13.73) scores Goals Three Impairment Pt completes 6MWT with an average speed of 1.91 ft/sec Short Term Goal (STG) Pt to complete 6MWT with an average speed of at least 2.4 ft/sec for a total distance > 864' to show decreased risk of functional decline STG Duration Met [employer] Goal (LTG) Pt to ambulate >1200' during 6 MWT to demonstrate a return to prior level of functional gait LTG Duration 07/15/21 Two Impairment Increased falls risk per Hogan (41/56) and TUG (13.73) scores Short Term Goal (STG) Pt to increase Hogan score by at least 5 points to 46/56 to demonstrate decreased falls risk STG Duration Met [employer] Goal (LTG) Pt to increase Hogan score by at least 5 points to 53/56 to demonstrate decreased falls risk LTG Duration 07/15/21 One Impairment Pt does not have an appropriate home exercise program Short Term Goal (STG) Pt to be independent and compliant with an appropriate HEP STG Duration Met Assessment Summary Assessment Pt showed some incredible limited dorsiflexion today, however more than she has in the past. Physical Therapy Plan Frequency and Duration Frequency of Treatment 2x/Week Duration of Treatment Two months Plan of Care Start Date 05/15/21 Plan of Care End Date 07/15/21 Therapeutic Interventions Therapeutic Interventions Aquatic Therapy,Balance Training,Gait Training,Home Exercise Program,Manual Therapy,Neuromuscular Re- education,Patient/Caregiver Education,Self-Care/Home Management,Soft Tissue Mobilization,Therapeutic Exercises Modalities Cold Pack/Ice Massage,Electric Stimulation,Hot Packs Next Visit Focus/Plan Next Note Type Treatment Note Next Visit Plan Assess response to no use of AFO on LLE during shuttle recovery and uneven foam surface last tx. POC: Gait training, balance training, LE strengthening, functional mobility.
--- NOTE | 2021-06-15 11:18 | PT.OTN ---
Current Diagnoses Cerebral infarction, unspecified (06/15/21) Muscle weakness (generalized) (06/15/21) Other abnormalities of gait and mobility (06/15/21) Repeated falls (06/15/21) Other symptoms and signs involving the musculoskeletal system (06/15/21) Physical Therapy Treatment Note PT-OP-A Visit Information Start: 03/13/21 14:33 Freq: Status: Active Protocol: Document 06/15/21 10:30 DCW (Rec: 06/15/21 11:18 DCW [id number]) Out-Patient Physical Therapy Visit Information Visit Information Visit Type Treatment Note Visit Start Time 10:30 Visit Stop Time 11:15 Total Visit Minutes 45 Visit Number 23 Number of TIRE INSPECTOR Visits 0 Evaluation Information Evaluation Date 03/13/21 PT-OP-B Current Condition Start: 03/13/21 14:33 Freq: Status: Active Protocol: Document 03/13/21 12:00 DCW (Rec: 03/13/21 15:08 DCW [id number]) Current Condition History of Current Condition Onset Date 12/16/20 Current Complaints Hemiparesis, weakness, gait difficulty, decreased balance History of Current Condition Pt is a 65 year old female presenting three months s/p thalamic CVA. Pt presented to ED on 12/16/20 with sudden onset of left-sided weakness when waking up early in the AM to go to the bathroom. Pt noticed she could not more her left arm, tried to stand up, and fell over when her left leg was also unable to support her. The day after hospitalization, pt was transferred to [facility] for intensive rehab, notes she underwent 2.5 hours of PT/OT each day. Pt remained there for one months, and was then discharged home on January 13 with [facility], and since that time has been undergoing PT 2x/week and OT 3x/week, and was discharged from both disciplines earlier this week. Pt reports her left arm function is her biggest concern, and has been referred to outpatient OT for this, but also has difficulty with gait and balance. Pt wears an AFO on her left foot due to foot drop, and walks with a SPC. Admits she has had a few falls, but her balance has been a bit better since she left [facility] and has been slightly more stable at home. Treatment Goals Patient/Caregiver Goals I want to get back to normal function. I want to be able to walk independently without the cane, and use my arms like before. Really, I want to be able to live without depending on anyone, I was so independent before. PT-OP-C Subjective Start: 03/13/21 14:33 Freq: Status: Active Protocol: Document 06/15/21 10:30 DCW (Rec: 06/15/21 11:18 DCW [id number]) OP-PT Subjective Patient Comments Patient Comments I'm rested up and ready for your torture. PT-OP-D Balance Start: 03/13/21 14:33 Freq: Status: Active Protocol: Document 05/15/21 12:00 DCW (Rec: 05/15/21 12:35 DCW [id number]) Balance Tests Hogan Balance Test Hogan Balance Test Score 48/56 Hogan Impairment Rating 1 to 19% Impaired (Score 45-55 ) Single Limb Standing Single Limb- Right 14 seconds Single Limb- Left 2 seconds Hogan Balance Assessment Evaluation Sitting to Standing Ability Independent w/out Hands Unsupported Stance Safely- 2 minutes Sitting Unsupported, Feet on Floor Safely- 2 minutes Standing to Sitting Ability Safely, Minimal Hand Use Transfer Ability Safely, Minimal Hand Use Unsupported Stance- Eyes Closed Safely, 10 seconds Unsupported Stance- Eyes Open Independent, 1 minute Reaching Forward Standing Safely, 5 inches Pick- Up Object From Floor Independent/Safe Look Behind Shoulder - Standing Shifts Weight Well Turning 360 Degrees Turns slowly, but safely Unsupported Stance, Alternating Feet on 4 Steps w/Supervision Stair Unsupported Tandem Stance Achieves Tandem Unilateral Leg Stance Lifts Leg/Unable to Hold Total Score Hogan Total Score (out of 56 points) 48 Hogan Impairment Rating 1 to 19% Impaired (Score 45-55 ) PT-OP-E Functional Tests Start: 03/13/21 14:33 Freq: Status: Active Protocol: Document 05/15/21 12:00 DCW (Rec: 05/15/21 12:35 DCW [id number]) Functional Tests 6 Minute Walk Test Distance 935' Device Used [facility] Comments 2.60 Timed Up and Go (TUG) Score 11.54 Comments 3-trial average (11.67,11.57 , 11.40) using SPC TUG Impairment Rating 1 to <20% Impaired (Score 11) PT-OP-M Strength Start: 03/13/21 14:33 Freq: Status: Active Protocol: Document 05/15/21 12:00 DCW (Rec: 05/15/21 12:35 DCW [id number]) Hip Strength Hip Manual Muscle Testing Left Flexion (L2) 4- Good- Abduction 3+ Fair+ Adduction 4+ Good+ External Rotation 4- Good- Internal Rotation 3 Fair Knee Strength Knee Manual Muscle Testing Left Flexion (S2) 3- Fair- Extension (L3) 4 Good Ankle/Foot Strength Ankle and Foot Manual Muscle Testing Left Dorsiflexion (L4) 2- Poor- Plantarflexion (S1) 3 Fair PT-OP-Q Treatments Start: 03/13/21 14:33 Freq: Status: Active Protocol: Document 06/15/21 10:30 DCW (Rec: 06/15/21 11:18 DCW [id number]) Cardio Equipment Recumbent Stepper (Sci-Fit) Duration (Minutes) 5 Resistance 2 Seat Position 4 Gym Equipment Shuttle Recovery Bilateral Squats Resistance 87# Shuttle Recovery Platform Unstable Reps/Time reps to tiring Unilateral Squats Resistance 37# Shuttle Recovery Platform Stable Reps/Time reps to tiring Shuttle Balance Red Details WBOS (EO/EC), Staggered Neuro Re-Education Treatment Balance Activities 2 Details SLS Surface Firm Equipment // bars, contact assist during LLE, hand hover bar RLE Comments /s AFO 1 Details Ambulation /c Head turns Comments Horizontal/Vertical, no AD PT-OP-R Modalities Start: 03/13/21 14:33 Freq: Status: Active Protocol: Document 06/15/21 10:30 DCW (Rec: 06/15/21 11:18 DCW [id number]) Electric Stimulation Electric Stimulation Tristanian Stimulation Body Location Left Anterior Tib Duration (Minutes) 10 Intensity 42 Patient Position Sitting Comments 5 on, 5 off Dorsiflexion AROM during contraction PT-OP-T Assessment and Plan Start: 03/13/21 14:33 Freq: Status: Active Protocol: Document 06/15/21 10:30 DCW (Rec: 06/15/21 11:18 DCW [id number]) Physical Therapy Assessment Impairments Impairments Activity Tolerance,Balance, Functional Activities, Functional Mobility,Gait,ROM, Soft Tissue Mobility,Strength, Transfers Other Concerns Fall Risk Increased falls risk per Hogan (41/56) and TUG (13.73) scores Goals Three Impairment Pt completes 6MWT with an average speed of 1.91 ft/sec Short Term Goal (STG) Pt to complete 6MWT with an average speed of at least 2.4 ft/sec for a total distance > 864' to show decreased risk of functional decline STG Duration Met Soaker Goal (LTG) Pt to ambulate >1200' during 6 MWT to demonstrate a return to prior level of functional gait LTG Duration 07/15/21 Two Impairment Increased falls risk per Hogan (41/56) and TUG (13.73) scores Short Term Goal (STG) Pt to increase Hogan score by at least 5 points to 46/56 to demonstrate decreased falls risk STG Duration Met Soaker Goal (LTG) Pt to increase Hogan score by at least 5 points to 53/56 to demonstrate decreased falls risk LTG Duration 07/15/21 One Impairment Pt does not have an appropriate home exercise program Short Term Goal (STG) Pt to be independent and compliant with an appropriate HEP STG Duration Met Assessment Summary Assessment Pt did well during gait with head turns, one stumble which required PT intervention, but otherwise was able to keep her balance well. Physical Therapy Plan Frequency and Duration Frequency of Treatment 2x/Week Duration of Treatment Two months Plan of Care Start Date 05/15/21 Plan of Care End Date 07/15/21 Therapeutic Interventions Therapeutic Interventions Aquatic Therapy,Balance Training,Gait Training,Home Exercise Program,Manual Therapy,Neuromuscular Re- education,Patient/Caregiver Education,Self-Care/Home Management,Soft Tissue Mobilization,Therapeutic Exercises Modalities Cold Pack/Ice Massage,Electric Stimulation,Hot Packs Next Visit Focus/Plan Next Note Type Treatment Note Next Visit Plan POC: Gait training, balance training, LE strengthening, functional mobility.
--- NOTE | 2021-06-22 11:12 | PT.OTN ---
Current Diagnoses Cerebral infarction, unspecified (06/22/21) Muscle weakness (generalized) (06/22/21) Other abnormalities of gait and mobility (06/22/21) Repeated falls (06/22/21) Other symptoms and signs involving the musculoskeletal system (06/22/21) Physical Therapy Treatment Note PT-OP-A Visit Information Start: 03/13/21 14:33 Freq: Status: Active Protocol: Document 06/22/21 10:30 DCW (Rec: 06/22/21 11:12 DCW [id number]) Out-Patient Physical Therapy Visit Information Visit Information Visit Type Treatment Note Visit Start Time 10:30 Visit Stop Time 11:15 Total Visit Minutes 45 Visit Number 24 Number of SENIOR HR MANAGER Visits 0 Evaluation Information Evaluation Date 03/13/21 PT-OP-B Current Condition Start: 03/13/21 14:33 Freq: Status: Active Protocol: Document 03/13/21 12:00 DCW (Rec: 03/13/21 15:08 DCW [id number]) Current Condition History of Current Condition Onset Date 12/16/20 Current Complaints Hemiparesis, weakness, gait difficulty, decreased balance History of Current Condition Pt is a 65 year old female presenting three months s/p thalamic CVA. Pt presented to ED on 12/16/20 with sudden onset of left-sided weakness when waking up early in the AM to go to the bathroom. Pt noticed she could not more her left arm, tried to stand up, and fell over when her left leg was also unable to support her. The day after hospitalization, pt was transferred to [facility] for intensive rehab, notes she underwent 2.5 hours of PT/OT each day. Pt remained there for one months, and was then discharged home on January 13 with [facility], and since that time has been undergoing PT 2x/week and OT 3x/week, and was discharged from both disciplines earlier this week. Pt reports her left arm function is her biggest concern, and has been referred to outpatient OT for this, but also has difficulty with gait and balance. Pt wears an AFO on her left foot due to foot drop, and walks with a SPC. Admits she has had a few falls, but her balance has been a bit better since she left [facility] and has been slightly more stable at home. Treatment Goals Patient/Caregiver Goals I want to get back to normal function. I want to be able to walk independently without the cane, and use my arms like before. Really, I want to be able to live without depending on anyone, I was so independent before. PT-OP-C Subjective Start: 03/13/21 14:33 Freq: Status: Active Protocol: Document 06/22/21 10:30 DCW (Rec: 06/22/21 11:12 DCW [id number]) OP-PT Subjective Patient Comments Patient Comments Pt reports she is having a hard time getting up and moving today. PT-OP-D Balance Start: 03/13/21 14:33 Freq: Status: Active Protocol: Document 05/15/21 12:00 DCW (Rec: 05/15/21 12:35 DCW [id number]) Balance Tests Hogan Balance Test Hogan Balance Test Score 48/56 Hogan Impairment Rating 1 to 19% Impaired (Score 45-55 ) Single Limb Standing Single Limb- Right 14 seconds Single Limb- Left 2 seconds Hogan Balance Assessment Evaluation Sitting to Standing Ability Independent w/out Hands Unsupported Stance Safely- 2 minutes Sitting Unsupported, Feet on Floor Safely- 2 minutes Standing to Sitting Ability Safely, Minimal Hand Use Transfer Ability Safely, Minimal Hand Use Unsupported Stance- Eyes Closed Safely, 10 seconds Unsupported Stance- Eyes Open Independent, 1 minute Reaching Forward Standing Safely, 5 inches Pick- Up Object From Floor Independent/Safe Look Behind Shoulder - Standing Shifts Weight Well Turning 360 Degrees Turns slowly, but safely Unsupported Stance, Alternating Feet on 4 Steps w/Supervision Stair Unsupported Tandem Stance Achieves Tandem Unilateral Leg Stance Lifts Leg/Unable to Hold Total Score Hogan Total Score (out of 56 points) 48 Hogan Impairment Rating 1 to 19% Impaired (Score 45-55 ) PT-OP-E Functional Tests Start: 03/13/21 14:33 Freq: Status: Active Protocol: Document 05/15/21 12:00 DCW (Rec: 05/15/21 12:35 DCW [id number]) Functional Tests 6 Minute Walk Test Distance 935' Device Used [facility] [place] Comments 2.60 Timed Up and Go (TUG) Score 11.54 Comments 3-trial average (11.67,11.57 , 11.40) using SPC TUG Impairment Rating 1 to <20% Impaired (Score 11) PT-OP-M Strength Start: 03/13/21 14:33 Freq: Status: Active Protocol: Document 05/15/21 12:00 DCW (Rec: 05/15/21 12:35 DCW [id number]) Hip Strength Hip Manual Muscle Testing Left Flexion (L2) 4- Good- Abduction 3+ Fair+ Adduction 4+ Good+ External Rotation 4- Good- Internal Rotation 3 Fair Knee Strength Knee Manual Muscle Testing Left Flexion (S2) 3- Fair- Extension (L3) 4 Good Ankle/Foot Strength Ankle and Foot Manual Muscle Testing Left Dorsiflexion (L4) 2- Poor- Plantarflexion (S1) 3 Fair PT-OP-Q Treatments Start: 03/13/21 14:33 Freq: Status: Active Protocol: Document 06/22/21 10:30 DCW (Rec: 06/22/21 11:12 DCW [id number]) Cardio Equipment Recumbent Elliptical (Biodex) Duration (Minutes) 5 Resistance 4 Seat Position 5 Gym Equipment Shuttle Recovery Bilateral Squats Resistance 87# Shuttle Recovery Platform Unstable Reps/Time reps to tiring Unilateral Squats Resistance 37# Shuttle Recovery Platform Stable Reps/Time reps to tiring Shuttle Balance Red Details WBOS (EO/EC, Balloon volley) Neuro Re-Education Treatment Balance Activities 3 Details Tandem stance Surface firm 1 Details Ambulation /c Head turns Comments Horizontal/Vertical, no AD PT-OP-R Modalities Start: 03/13/21 14:33 Freq: Status: Active Protocol: Document 06/22/21 10:30 DCW (Rec: 06/22/21 11:12 DCW [id number]) Electric Stimulation Electric Stimulation [place] Stimulation Body Location Left Anterior Tib Duration (Minutes) 10 Intensity 40 Patient Position Sitting Comments 5 on, 5 off Dorsiflexion AROM during contraction PT-OP-T Assessment and Plan Start: 03/13/21 14:33 Freq: Status: Active Protocol: Document 06/22/21 10:30 DCW (Rec: 06/22/21 11:12 DCW [id number]) Physical Therapy Assessment Impairments Impairments Activity Tolerance,Balance, Functional Activities, Functional Mobility,Gait,ROM, Soft Tissue Mobility,Strength, Transfers Other Concerns Fall Risk Increased falls risk per Hogan (41/56) and TUG (13.73) scores Goals Three Impairment Pt completes 6MWT with an average speed of 1.91 ft/sec Short Term Goal (STG) Pt to complete 6MWT with an average speed of at least 2.4 ft/sec for a total distance > 864' to show decreased risk of functional decline STG Duration Met Chcf Goal (LTG) Pt to ambulate >1200' during 6 MWT to demonstrate a return to prior level of functional gait LTG Duration 07/15/21 Two Impairment Increased falls risk per Hogan (41/56) and TUG (13.73) scores Short Term Goal (STG) Pt to increase Hogan score by at least 5 points to 46/56 to demonstrate decreased falls risk STG Duration Met Weapons Engineer Goal (LTG) Pt to increase Hogan score by at least 5 points to 53/56 to demonstrate decreased falls risk LTG Duration 07/15/21 One Impairment Pt does not have an appropriate home exercise program Short Term Goal (STG) Pt to be independent and compliant with an appropriate HEP STG Duration Met Assessment Summary Assessment Pt showed improvement with ambulation using head turns and tandem stance today. Physical Therapy Plan Frequency and Duration Frequency of Treatment 2x/Week Duration of Treatment Two months Plan of Care Start Date 05/15/21 Plan of Care End Date 07/15/21 Therapeutic Interventions Therapeutic Interventions Aquatic Therapy,Balance Training,Gait Training,Home Exercise Program,Manual Therapy,Neuromuscular Re- education,Patient/Caregiver Education,Self-Care/Home Management,Soft Tissue Mobilization,Therapeutic Exercises Modalities Cold Pack/Ice Massage,Electric Stimulation,Hot Packs Next Visit Focus/Plan Next Note Type Treatment Note Next Visit Plan POC: Gait training, balance training, LE strengthening, functional mobility.
--- NOTE | 2021-06-25 11:15 | PT.OTN ---
Current Diagnoses Cerebral infarction, unspecified (06/25/21) Muscle weakness (generalized) (06/25/21) Other abnormalities of gait and mobility (06/25/21) Repeated falls (06/25/21) Other symptoms and signs involving the musculoskeletal system (06/25/21) Physical Therapy Treatment Note PT-OP-A Visit Information Start: 03/13/21 14:33 Freq: Status: Active Protocol: Document 06/25/21 10:30 DCW (Rec: 06/25/21 11:15 DCW [id number]) Out-Patient Physical Therapy Visit Information Visit Information Visit Type Treatment Note Visit Start Time 10:30 Visit Stop Time 11:15 Total Visit Minutes 45 Visit Number 25 Number of STENOCAPTIONER Visits 0 Evaluation Information Evaluation Date 03/13/21 PT-OP-B Current Condition Start: 03/13/21 14:33 Freq: Status: Active Protocol: Document 03/13/21 12:00 DCW (Rec: 03/13/21 15:08 DCW [id number]) Current Condition History of Current Condition Onset Date 12/16/20 Current Complaints Hemiparesis, weakness, gait difficulty, decreased balance History of Current Condition Pt is a 65 year old female presenting three months s/p thalamic CVA. Pt presented to ED on 12/16/20 with sudden onset of left-sided weakness when waking up early in the AM to go to the bathroom. Pt noticed she could not more her left arm, tried to stand up, and fell over when her left leg was also unable to support her. The day after hospitalization, pt was transferred to [facility] for intensive rehab, notes she underwent 2.5 hours of PT/OT each day. Pt remained there for one months, and was then discharged home on January 13 with [facility], and since that time has been undergoing PT 2x/week and OT 3x/week, and was discharged from both disciplines earlier this week. Pt reports her left arm function is her biggest concern, and has been referred to outpatient OT for this, but also has difficulty with gait and balance. Pt wears an AFO on her left foot due to foot drop, and walks with a SPC. Admits she has had a few falls, but her balance has been a bit better since she left [facility] and has been slightly more stable at home. Treatment Goals Patient/Caregiver Goals I want to get back to normal function. I want to be able to walk independently without the cane, and use my arms like before. Really, I want to be able to live without depending on anyone, I was so independent before. PT-OP-C Subjective Start: 03/13/21 14:33 Freq: Status: Active Protocol: Document 06/25/21 10:30 DCW (Rec: 06/25/21 11:15 DCW [id number]) OP-PT Subjective Patient Comments Patient Comments Pt doing well today. PT-OP-D Balance Start: 03/13/21 14:33 Freq: Status: Active Protocol: Document 05/15/21 12:00 DCW (Rec: 05/15/21 12:35 DCW [id number]) Balance Tests Hogan Balance Test Hogan Balance Test Score 48/56 Hogan Impairment Rating 1 to 19% Impaired (Score 45-55 ) Single Limb Standing Single Limb- Right 14 seconds Single Limb- Left 2 seconds Hogan Balance Assessment Evaluation Sitting to Standing Ability Independent w/out Hands Unsupported Stance Safely- 2 minutes Sitting Unsupported, Feet on Floor Safely- 2 minutes Standing to Sitting Ability Safely, Minimal Hand Use Transfer Ability Safely, Minimal Hand Use Unsupported Stance- Eyes Closed Safely, 10 seconds Unsupported Stance- Eyes Open Independent, 1 minute Reaching Forward Standing Safely, 5 inches Pick- Up Object From Floor Independent/Safe Look Behind Shoulder - Standing Shifts Weight Well Turning 360 Degrees Turns slowly, but safely Unsupported Stance, Alternating Feet on 4 Steps w/Supervision Stair Unsupported Tandem Stance Achieves Tandem Unilateral Leg Stance Lifts Leg/Unable to Hold Total Score Hogan Total Score (out of 56 points) 48 Hogan Impairment Rating 1 to 19% Impaired (Score 45-55 ) PT-OP-E Functional Tests Start: 03/13/21 14:33 Freq: Status: Active Protocol: Document 05/15/21 12:00 DCW (Rec: 05/15/21 12:35 DCW [id number]) Functional Tests 6 Minute Walk Test Distance 935' Device Used [facility] [place] Comments 2.60 Timed Up and Go (TUG) Score 11.54 Comments 3-trial average (11.67,11.57 , 11.40) using SPC TUG Impairment Rating 1 to <20% Impaired (Score 11) PT-OP-M Strength Start: 03/13/21 14:33 Freq: Status: Active Protocol: Document 05/15/21 12:00 DCW (Rec: 05/15/21 12:35 DCW [id number]) Hip Strength Hip Manual Muscle Testing Left Flexion (L2) 4- Good- Abduction 3+ Fair+ Adduction 4+ Good+ External Rotation 4- Good- Internal Rotation 3 Fair Knee Strength Knee Manual Muscle Testing Left Flexion (S2) 3- Fair- Extension (L3) 4 Good Ankle/Foot Strength Ankle and Foot Manual Muscle Testing Left Dorsiflexion (L4) 2- Poor- Plantarflexion (S1) 3 Fair PT-OP-Q Treatments Start: 03/13/21 14:33 Freq: Status: Active Protocol: Document 06/25/21 10:30 DCW (Rec: 06/25/21 11:15 DCW [id number]) Cardio Equipment Recumbent Elliptical (Biodex) Duration (Minutes) 5 Resistance 4 Seat Position 5 Gym Equipment Shuttle Recovery Bilateral Squats Resistance 87# Shuttle Recovery Platform Unstable Reps/Time reps to tiring Unilateral Squats Resistance 50# Shuttle Recovery Platform Stable Reps/Time reps to tiring Shuttle Balance Red Details WBOS (EO/EC, Balloon volley) Gait Training Gait Activity 1 Description Gait /s AFO Device Used SPC Level of Assistance SBA PT-OP-R Modalities Start: 03/13/21 14:33 Freq: Status: Active Protocol: Document 06/25/21 10:30 DCW (Rec: 06/25/21 11:15 DCW [id number]) Electric Stimulation Electric Stimulation [place] Stimulation Body Location Left Anterior Tib Duration (Minutes) 10 Intensity 34 Patient Position Sitting Comments 5 on, 5 off Dorsiflexion AROM during contraction PT-OP-T Assessment and Plan Start: 03/13/21 14:33 Freq: Status: Active Protocol: Document 06/25/21 10:30 DCW (Rec: 06/25/21 11:15 DCW [id number]) Physical Therapy Assessment Impairments Impairments Activity Tolerance,Balance, Functional Activities, Functional Mobility,Gait,ROM, Soft Tissue Mobility,Strength, Transfers Other Concerns Fall Risk Increased falls risk per Hogan (41/56) and TUG (13.73) scores Goals Three Impairment Pt completes 6MWT with an average speed of 1.91 ft/sec Short Term Goal (STG) Pt to complete 6MWT with an average speed of at least 2.4 ft/sec for a total distance > 864' to show decreased risk of functional decline STG Duration Met Group Home Goal (LTG) Pt to ambulate >1200' during 6 MWT to demonstrate a return to prior level of functional gait LTG Duration 07/15/21 Two Impairment Increased falls risk per Hogan (41/56) and TUG (13.73) scores Short Term Goal (STG) Pt to increase Hogan score by at least 5 points to 46/56 to demonstrate decreased falls risk STG Duration Met Architectural Coating Finisher Goal (LTG) Pt to increase Hogan score by at least 5 points to 53/56 to demonstrate decreased falls risk LTG Duration 07/15/21 One Impairment Pt does not have an appropriate home exercise program Short Term Goal (STG) Pt to be independent and compliant with an appropriate HEP STG Duration Met Assessment Summary Assessment Pt getting frustrated with still needing AFO during gait, wanted to attempt ambulation without it. Continues to show inability to dorsiflex foot, however does appear to be able to now at least prevent foot dropping into plantar flexion as severely. Physical Therapy Plan Frequency and Duration Frequency of Treatment 2x/Week Duration of Treatment Two months Plan of Care Start Date 05/15/21 Plan of Care End Date 07/15/21 Therapeutic Interventions Therapeutic Interventions Aquatic Therapy,Balance Training,Gait Training,Home Exercise Program,Manual Therapy,Neuromuscular Re- education,Patient/Caregiver Education,Self-Care/Home Management,Soft Tissue Mobilization,Therapeutic Exercises Modalities Cold Pack/Ice Massage,Electric Stimulation,Hot Packs Next Visit Focus/Plan Next Note Type Treatment Note Next Visit Plan POC: Gait training, balance training, LE strengthening, functional mobility.
--- NOTE | 2021-07-08 12:26 | PT.OTN ---
Current Diagnoses Cerebral infarction, unspecified (07/08/21) Muscle weakness (generalized) (07/08/21) Other abnormalities of gait and mobility (07/08/21) Repeated falls (07/08/21) Other symptoms and signs involving the musculoskeletal system (07/08/21) Physical Therapy Treatment Note PT-OP-A Visit Information Start: 03/13/21 14:33 Freq: Status: Active Protocol: Document 07/08/21 12:00 DCW (Rec: 07/08/21 12:25 DCW [id number]) Out-Patient Physical Therapy Visit Information Visit Information Visit Type Treatment Note Visit Start Time 12:00 Visit Stop Time 12:20 Total Visit Minutes 20 Visit Number 26 Number of HISTORY TUTOR Visits 0 Evaluation Information Evaluation Date 03/13/21 PT-OP-B Current Condition Start: 03/13/21 14:33 Freq: Status: Active Protocol: Document 03/13/21 12:00 DCW (Rec: 03/13/21 15:08 DCW [id number]) Current Condition History of Current Condition Onset Date 12/16/20 Current Complaints Hemiparesis, weakness, gait difficulty, decreased balance History of Current Condition Pt is a 65 year old female presenting three months s/p thalamic CVA. Pt presented to ED on 12/16/20 with sudden onset of left-sided weakness when waking up early in the AM to go to the bathroom. Pt noticed she could not more her left arm, tried to stand up, and fell over when her left leg was also unable to support her. The day after hospitalization, pt was transferred to [facility] for intensive rehab, notes she underwent 2.5 hours of PT/OT each day. Pt remained there for one months, and was then discharged home on January 13 with [facility], and since that time has been undergoing PT 2x/week and OT 3x/week, and was discharged from both disciplines earlier this week. Pt reports her left arm function is her biggest concern, and has been referred to outpatient OT for this, but also has difficulty with gait and balance. Pt wears an AFO on her left foot due to foot drop, and walks with a SPC. Admits she has had a few falls, but her balance has been a bit better since she left [facility] and has been slightly more stable at home. Treatment Goals Patient/Caregiver Goals I want to get back to normal function. I want to be able to walk independently without the cane, and use my arms like before. Really, I want to be able to live without depending on anyone, I was so independent before. PT-OP-C Subjective Start: 03/13/21 14:33 Freq: Status: Active Protocol: Document 07/08/21 12:00 DCW (Rec: 07/08/21 12:25 DCW [id number]) OP-PT Subjective Patient Comments Patient Comments Pt is doing pretty well, but notes she has been having a lot of unexplained sciatic pain in her left leg the past few days. PT-OP-D Balance Start: 03/13/21 14:33 Freq: Status: Active Protocol: Document 05/15/21 12:00 DCW (Rec: 05/15/21 12:35 DCW [id number]) Balance Tests Hogan Balance Test Hogan Balance Test Score 48/56 Hogan Impairment Rating 1 to 19% Impaired (Score 45-55 ) Single Limb Standing Single Limb- Right 14 seconds Single Limb- Left 2 seconds Hogan Balance Assessment Evaluation Sitting to Standing Ability Independent w/out Hands Unsupported Stance Safely- 2 minutes Sitting Unsupported, Feet on Floor Safely- 2 minutes Standing to Sitting Ability Safely, Minimal Hand Use Transfer Ability Safely, Minimal Hand Use Unsupported Stance- Eyes Closed Safely, 10 seconds Unsupported Stance- Eyes Open Independent, 1 minute Reaching Forward Standing Safely, 5 inches Pick- Up Object From Floor Independent/Safe Look Behind Shoulder - Standing Shifts Weight Well Turning 360 Degrees Turns slowly, but safely Unsupported Stance, Alternating Feet on 4 Steps w/Supervision Stair Unsupported Tandem Stance Achieves Tandem Unilateral Leg Stance Lifts Leg/Unable to Hold Total Score Hogan Total Score (out of 56 points) 48 Hogan Impairment Rating 1 to 19% Impaired (Score 45-55 ) PT-OP-E Functional Tests Start: 03/13/21 14:33 Freq: Status: Active Protocol: Document 05/15/21 12:00 DCW (Rec: 05/15/21 12:35 DCW [id number]) Functional Tests 6 Minute Walk Test Distance 935' Device Used SPC Comments 2.60 Timed Up and Go (TUG) Score 11.54 Comments 3-trial average (11.67,11.57 , 11.40) using SPC TUG Impairment Rating 1 to <20% Impaired (Score 11) PT-OP-M Strength Start: 03/13/21 14:33 Freq: Status: Active Protocol: Document 05/15/21 12:00 DCW (Rec: 05/15/21 12:35 DCW [id number]) Hip Strength Hip Manual Muscle Testing Left Flexion (L2) 4- Good- Abduction 3+ Fair+ Adduction 4+ Good+ External Rotation 4- Good- Internal Rotation 3 Fair Knee Strength Knee Manual Muscle Testing Left Flexion (S2) 3- Fair- Extension (L3) 4 Good Ankle/Foot Strength Ankle and Foot Manual Muscle Testing Left Dorsiflexion (L4) 2- Poor- Plantarflexion (S1) 3 Fair PT-OP-Q Treatments Start: 03/13/21 14:33 Freq: Status: Active Protocol: Document 07/08/21 12:00 DCW (Rec: 07/08/21 12:25 DCW [id number]) Cardio Equipment Recumbent Elliptical ([employer]) Duration (Minutes) 5 Resistance 5 Seat Position 5 Gym Equipment Shuttle Recovery Bilateral Squats Resistance 87# Shuttle Recovery Platform Unstable Reps/Time reps to tiring Unilateral Squats Resistance 50# Shuttle Recovery Platform Stable Reps/Time reps to tiring Therapeutic Exercises Sitting Exercises 4 Sitting Exercise Name Seated piriformis stretch Side left PT-OP-R Modalities Start: 03/13/21 14:33 Freq: Status: Active Protocol: Document 06/25/21 10:30 DCW (Rec: 06/25/21 11:15 DCW [id number]) Electric Stimulation Electric Stimulation [place] Stimulation Body Location Left Anterior Tib Duration (Minutes) 10 Intensity 34 Patient Position Sitting Comments 5 on, 5 off Dorsiflexion AROM during contraction PT-OP-T Assessment and Plan Start: 03/13/21 14:33 Freq: Status: Active Protocol: Document 07/08/21 12:00 DCW (Rec: 07/08/21 12:25 DCW [id number]) Physical Therapy Assessment Impairments Impairments Activity Tolerance,Balance, Functional Activities, Functional Mobility,Gait,ROM, Soft Tissue Mobility,Strength, Transfers Other Concerns Fall Risk Increased falls risk per Hogan (41/56) and TUG (13.73) scores Goals Three Impairment Pt completes 6MWT with an average speed of 1.91 ft/sec Short Term Goal (STG) Pt to complete 6MWT with an average speed of at least 2.4 ft/sec for a total distance > 864' to show decreased risk of functional decline STG Duration Met Halfway Goal (LTG) Pt to ambulate >1200' during 6 MWT to demonstrate a return to prior level of functional gait LTG Duration 07/15/21 Two Impairment Increased falls risk per Hogan (41/56) and TUG (13.73) scores Short Term Goal (STG) Pt to increase Hogan score by at least 5 points to 46/56 to demonstrate decreased falls risk STG Duration Met Halfway Goal (LTG) Pt to increase Hogan score by at least 5 points to 53/56 to demonstrate decreased falls risk LTG Duration 07/15/21 One Impairment Pt does not have an appropriate home exercise program Short Term Goal (STG) Pt to be independent and compliant with an appropriate HEP STG Duration Met Assessment Summary Assessment Pt requested early stop to session today, experiencing too much sciatic pain to continue. Physical Therapy Plan Frequency and Duration Frequency of Treatment 2x/Week Duration of Treatment Two months Plan of Care Start Date 05/15/21 Plan of Care End Date 07/15/21 Therapeutic Interventions Therapeutic Interventions Aquatic Therapy,Balance Training,Gait Training,Home Exercise Program,Manual Therapy,Neuromuscular Re- education,Patient/Caregiver Education,Self-Care/Home Management,Soft Tissue Mobilization,Therapeutic Exercises Modalities Cold Pack/Ice Massage,Electric Stimulation,Hot Packs Next Visit Focus/Plan Next Note Type Treatment Note Next Visit Plan POC: Gait training, balance training, LE strengthening, functional mobility.
--- NOTE | 2021-07-10 12:43 | PT.OTN ---
Current Diagnoses Cerebral infarction, unspecified (07/10/21) Muscle weakness (generalized) (07/10/21) Other abnormalities of gait and mobility (07/10/21) Repeated falls (07/10/21) Other symptoms and signs involving the musculoskeletal system (07/10/21) Physical Therapy Treatment Note PT-OP-A Visit Information Start: 03/13/21 14:33 Freq: Status: Active Protocol: Document 07/10/21 12:00 DCW (Rec: 07/10/21 12:42 DCW [id number]) Out-Patient Physical Therapy Visit Information Visit Information Visit Type Treatment Note Visit Start Time 12:00 Visit Stop Time 12:45 Total Visit Minutes 45 Visit Number 27 Number of PARTNER INTEGRATION PLANNER Visits 0 Evaluation Information Evaluation Date 03/13/21 PT-OP-B Current Condition Start: 03/13/21 14:33 Freq: Status: Active Protocol: Document 03/13/21 12:00 DCW (Rec: 03/13/21 15:08 DCW [id number]) Current Condition History of Current Condition Onset Date 12/16/20 Current Complaints Hemiparesis, weakness, gait difficulty, decreased balance History of Current Condition Pt is a 65 year old female presenting three months s/p thalamic CVA. Pt presented to ED on 12/16/20 with sudden onset of left-sided weakness when waking up early in the AM to go to the bathroom. Pt noticed she could not more her left arm, tried to stand up, and fell over when her left leg was also unable to support her. The day after hospitalization, pt was transferred to [facility] for intensive rehab, notes she underwent 2.5 hours of PT/OT each day. Pt remained there for one months, and was then discharged home on January 13 with [facility], and since that time has been undergoing PT 2x/week and OT 3x/week, and was discharged from both disciplines earlier this week. Pt reports her left arm function is her biggest concern, and has been referred to outpatient OT for this, but also has difficulty with gait and balance. Pt wears an AFO on her left foot due to foot drop, and walks with a SPC. Admits she has had a few falls, but her balance has been a bit better since she left [facility] and has been slightly more stable at home. Treatment Goals Patient/Caregiver Goals I want to get back to normal function. I want to be able to walk independently without the cane, and use my arms like before. Really, I want to be able to live without depending on anyone, I was so independent before. PT-OP-C Subjective Start: 03/13/21 14:33 Freq: Status: Active Protocol: Document 07/10/21 12:00 DCW (Rec: 07/10/21 12:42 DCW [id number]) OP-PT Subjective Patient Comments Patient Comments Pt notes her sciatica is still acting up, but it's better than it was on Tuesday. PT-OP-D Balance Start: 03/13/21 14:33 Freq: Status: Active Protocol: Document 05/15/21 12:00 DCW (Rec: 05/15/21 12:35 DCW [id number]) Balance Tests Hogan Balance Test Hogan Balance Test Score 48/56 Hogan Impairment Rating 1 to 19% Impaired (Score 45-55 ) Single Limb Standing Single Limb- Right 14 seconds Single Limb- Left 2 seconds Hogan Balance Assessment Evaluation Sitting to Standing Ability Independent w/out Hands Unsupported Stance Safely- 2 minutes Sitting Unsupported, Feet on Floor Safely- 2 minutes Standing to Sitting Ability Safely, Minimal Hand Use Transfer Ability Safely, Minimal Hand Use Unsupported Stance- Eyes Closed Safely, 10 seconds Unsupported Stance- Eyes Open Independent, 1 minute Reaching Forward Standing Safely, 5 inches Pick- Up Object From Floor Independent/Safe Look Behind Shoulder - Standing Shifts Weight Well Turning 360 Degrees Turns slowly, but safely Unsupported Stance, Alternating Feet on 4 Steps w/Supervision Stair Unsupported Tandem Stance Achieves Tandem Unilateral Leg Stance Lifts Leg/Unable to Hold Total Score Hogan Total Score (out of 56 points) 48 Hogan Impairment Rating 1 to 19% Impaired (Score 45-55 ) PT-OP-E Functional Tests Start: 03/13/21 14:33 Freq: Status: Active Protocol: Document 05/15/21 12:00 DCW (Rec: 05/15/21 12:35 DCW [id number]) Functional Tests 6 Minute Walk Test Distance 935' Device Used SPC Comments 2.60 Timed Up and Go (TUG) Score 11.54 Comments 3-trial average (11.67,11.57 , 11.40) using SPC TUG Impairment Rating 1 to <20% Impaired (Score 11) PT-OP-M Strength Start: 03/13/21 14:33 Freq: Status: Active Protocol: Document 05/15/21 12:00 DCW (Rec: 05/15/21 12:35 DCW [id number]) Hip Strength Hip Manual Muscle Testing Left Flexion (L2) 4- Good- Abduction 3+ Fair+ Adduction 4+ Good+ External Rotation 4- Good- Internal Rotation 3 Fair Knee Strength Knee Manual Muscle Testing Left Flexion (S2) 3- Fair- Extension (L3) 4 Good Ankle/Foot Strength Ankle and Foot Manual Muscle Testing Left Dorsiflexion (L4) 2- Poor- Plantarflexion (S1) 3 Fair PT-OP-Q Treatments Start: 03/13/21 14:33 Freq: Status: Active Protocol: Document 07/10/21 12:00 DCW (Rec: 07/10/21 12:42 DCW [id number]) Cardio Equipment Recumbent Elliptical (Biodex) Duration (Minutes) 5 Resistance 4 Seat Position 5 Gym Equipment Shuttle Recovery Bilateral Squats Resistance 87# Shuttle Recovery Platform Unstable Reps/Time reps to tiring Unilateral Squats Resistance 25# Shuttle Recovery Platform Stable Reps/Time reps to tiring Shuttle Balance Red Details WBOS (EO/EC, Staggered) Therapeutic Exercises Sitting Exercises 4 Sitting Exercise Name Seated piriformis stretch Side left Neuro Re-Education Treatment Balance Activities 3 Details Tandem stance Surface firm PT-OP-R Modalities Start: 03/13/21 14:33 Freq: Status: Active Protocol: Document 07/10/21 12:00 DCW (Rec: 07/10/21 12:43 DCW [id number]) Electric Stimulation Electric Stimulation [place] Stimulation Body Location Left Anterior Tib Duration (Minutes) 10 Intensity 36 Patient Position Sitting Comments 5 on, 5 off Dorsiflexion AROM during contraction PT-OP-T Assessment and Plan Start: 03/13/21 14:33 Freq: Status: Active Protocol: Document 07/10/21 12:00 DCW (Rec: 07/10/21 12:42 DCW [id number]) Physical Therapy Assessment Impairments Impairments Activity Tolerance,Balance, Functional Activities, Functional Mobility,Gait,ROM, Soft Tissue Mobility,Strength, Transfers Other Concerns Fall Risk Increased falls risk per Hogan (41/56) and TUG (13.73) scores Goals Three Impairment Pt completes 6MWT with an average speed of 1.91 ft/sec Short Term Goal (STG) Pt to complete 6MWT with an average speed of at least 2.4 ft/sec for a total distance > 864' to show decreased risk of functional decline STG Duration Met Snf Goal (LTG) Pt to ambulate >1200' during 6 MWT to demonstrate a return to prior level of functional gait LTG Duration 07/15/21 Two Impairment Increased falls risk per Hogan (41/56) and TUG (13.73) scores Short Term Goal (STG) Pt to increase Hogan score by at least 5 points to 46/56 to demonstrate decreased falls risk STG Duration Met Shade Classifier Goal (LTG) Pt to increase Hogan score by at least 5 points to 53/56 to demonstrate decreased falls risk LTG Duration 07/15/21 One Impairment Pt does not have an appropriate home exercise program Short Term Goal (STG) Pt to be independent and compliant with an appropriate HEP STG Duration Met Assessment Summary Assessment Pt still really struggling to participate fully due to sciatic pain, attempted to help stretch her out with limited results. Physical Therapy Plan Frequency and Duration Frequency of Treatment 2x/Week Duration of Treatment Two months Plan of Care Start Date 05/15/21 Plan of Care End Date 07/15/21 Therapeutic Interventions Therapeutic Interventions Aquatic Therapy,Balance Training,Gait Training,Home Exercise Program,Manual Therapy,Neuromuscular Re- education,Patient/Caregiver Education,Self-Care/Home Management,Soft Tissue Mobilization,Therapeutic Exercises Modalities Cold Pack/Ice Massage,Electric Stimulation,Hot Packs Next Visit Focus/Plan Next Note Type Progress Note Next Visit Plan POC: Gait training, balance training, LE strengthening, functional mobility.
--- NOTE | 2021-07-14 11:18 | PT.OTN ---
Current Diagnoses Cerebral infarction, unspecified (07/14/21) Muscle weakness (generalized) (07/14/21) Other abnormalities of gait and mobility (07/14/21) Repeated falls (07/14/21) Other symptoms and signs involving the musculoskeletal system (07/14/21) Physical Therapy Treatment Note PT-OP-A Visit Information Start: 03/13/21 14:33 Freq: Status: Active Protocol: Document 07/14/21 10:30 DCW (Rec: 07/14/21 11:18 DCW [id number]) Out-Patient Physical Therapy Visit Information Visit Information Visit Type Progress Note Visit Start Time 10:30 Visit Stop Time 11:20 Total Visit Minutes 50 Visit Number [address]CE OF [address] SUPERVISOR Visits 0 Evaluation Information Evaluation Date 03/13/21 PT-OP-B Current Condition Start: 03/13/21 14:33 Freq: Status: Active Protocol: Document 03/13/21 12:00 DCW (Rec: 03/13/21 15:08 DCW [id number]) Current Condition History of Current Condition Onset Date 12/16/20 Current Complaints Hemiparesis, weakness, gait difficulty, decreased balance History of Current Condition Pt is a 65 year old female presenting three months s/p thalamic CVA. Pt presented to ED on 12/16/20 with sudden onset of left-sided weakness when waking up early in the AM to go to the bathroom. Pt noticed she could not more her left arm, tried to stand up, and fell over when her left leg was also unable to support her. The day after hospitalization, pt was transferred to [facility] for intensive rehab, notes she underwent 2.5 hours of PT/OT each day. Pt remained there for one months, and was then discharged home on January 13 with [facility], and since that time has been undergoing PT 2x/week and OT 3x/week, and was discharged from both disciplines earlier this week. Pt reports her left arm function is her biggest concern, and has been referred to outpatient OT for this, but also has difficulty with gait and balance. Pt wears an AFO on her left foot due to foot drop, and walks with a SPC. Admits she has had a few falls, but her balance has been a bit better since she left [facility] and has been slightly more stable at home. Treatment Goals Patient/Caregiver Goals I want to get back to normal function. I want to be able to walk independently without the cane, and use my arms like before. Really, I want to be able to live without depending on anyone, I was so independent before. PT-OP-C Subjective Start: 03/13/21 14:33 Freq: Status: Active Protocol: Document 07/14/21 10:30 DCW (Rec: 07/14/21 11:18 DCW [id number]) OP-PT Subjective Patient Comments Patient Comments Pt reports her sciatica has been doing better this week. PT-OP-D Balance Start: 03/13/21 14:33 Freq: Status: Active Protocol: Document 07/14/21 10:30 DCW (Rec: 07/14/21 11:07 DCW [id number]) Balance Tests Hogan Balance Test Hogan Balance Test Score 52/56 Hogan Impairment Rating 1 to 19% Impaired (Score 45-55 ) Single Limb Standing Single Limb- Right 20 seconds Single Limb- Left 3 seconds Hogan Balance Assessment Evaluation Sitting to Standing Ability Independent w/out Hands Unsupported Stance Safely- 2 minutes Sitting Unsupported, Feet on Floor Safely- 2 minutes Standing to Sitting Ability Safely, Minimal Hand Use Transfer Ability Safely, Minimal Hand Use Unsupported Stance- Eyes Closed Safely, 10 seconds Unsupported Stance- Eyes Open Independent, 1 minute Reaching Forward Standing Safely, 5 inches Pick- Up Object From Floor Independent/Safe Look Behind Shoulder - Standing Shifts Weight Well Turning 360 Degrees Turns Bilateral, < 4 secs Unsupported Stance, Alternating Feet on (I)- 8 Steps in 20 secs Stair Unsupported Tandem Stance Holds Tandem- 30 seconds Unilateral Leg Stance Lifts Leg/Holds > 3 secs Total Score Hogan Total Score (out of 56 points) 52 Hogan Impairment Rating 1 to 19% Impaired (Score 45-55 ) PT-OP-E Functional Tests Start: 03/13/21 14:33 Freq: Status: Active Protocol: Document 07/14/21 10:30 DCW (Rec: 07/14/21 11:07 DCW [id number]) Functional Tests 6 Minute Walk Test Distance 989' Device Used SPC Comments 2.75 ft/sec Timed Up and Go (TUG) Score 11.31 /s AD Comments 3-trial average (11.56,11.21 , 11.17) TUG Impairment Rating 1 to <20% Impaired (Score 11) PT-OP-M Strength Start: 03/13/21 14:33 Freq: Status: Active Protocol: Document 07/14/21 10:30 DCW (Rec: 07/14/21 11:07 DCW [id number]) Hip Strength Hip Manual Muscle Testing Left Flexion (L2) 4- Good- Abduction 3+ Fair+ Adduction 4+ Good+ External Rotation 4- Good- Internal Rotation 3 Fair Knee Strength Knee Manual Muscle Testing Left Flexion (S2) 3- Fair- Extension (L3) 4+ Good+ Ankle/Foot Strength Ankle and Foot Manual Muscle Testing Left Dorsiflexion (L4) 2 Poor Plantarflexion (S1) 3 Fair PT-OP-Q Treatments Start: 03/13/21 14:33 Freq: Status: Active Protocol: Document 07/14/21 10:30 DCW (Rec: 07/14/21 11:18 DCW [id number]) Cardio Equipment Recumbent Elliptical ([employer]) Duration (Minutes) 5 Resistance 4 Seat Position 5 Neuro Re-Education Treatment Other Activities 1 Details Testing PT-OP-R Modalities Start: 03/13/21 14:33 Freq: Status: Active Protocol: Document 07/14/21 10:30 DCW (Rec: 07/14/21 11:18 DCW [id number]) Electric Stimulation Electric Stimulation Honduran Stimulation Body Location Left Anterior Tib Duration (Minutes) 10 Intensity 29 Patient Position Sitting Comments 5 on, 5 off Dorsiflexion AROM during contraction PT-OP-T Assessment and Plan Start: 03/13/21 14:33 Freq: Status: Active Protocol: Document 07/14/21 10:30 DCW (Rec: 07/14/21 11:18 DCW [id number]) Physical Therapy Assessment Impairments Impairments Activity Tolerance,Balance, Functional Activities, Functional Mobility,Gait,ROM, Soft Tissue Mobility,Strength, Transfers Other Concerns Fall Risk Increased falls risk per Hogan (41/56) and TUG (13.73) scores Goals Three Impairment Pt completes 6MWT with an average speed of 1.91 ft/sec Short Term Goal (STG) Pt to complete 6MWT with an average speed of at least 2.4 ft/sec for a total distance > 864' to show decreased risk of functional decline STG Duration Met Half-Way Goal (LTG) Pt to ambulate >1200' during 6 MWT to demonstrate a return to prior level of functional gait LTG Duration 10/14/21 - improving Two Impairment Increased falls risk per Hogan (41/56) and TUG (13.73) scores Short Term Goal (STG) Pt to increase Hogan score by at least 5 points to 46/56 to demonstrate decreased falls risk STG Duration Met Maintenance Department Technician Goal (LTG) Pt to increase Hogan score by at least 5 points to 53/56 to demonstrate decreased falls risk LTG Duration 10/14/20 - improving (52/56) One Impairment Pt does not have an appropriate home exercise program Short Term Goal (STG) Pt to be independent and compliant with an appropriate HEP STG Duration Met Assessment Summary Assessment Pt making great progress overall, TUG slightly improved , but pt went from using AD to performing without AD, 6MWT approaching 1000' with AD, will likely attempt more challenging testing next visit . Physical Therapy Plan Frequency and Duration Frequency of Treatment 2x/Week Duration of Treatment Three months Plan of Care Start Date 07/14/21 Plan of Care End Date 10/14/21 Therapeutic Interventions Therapeutic Interventions Aquatic Therapy,Balance Training,Gait Training,Home Exercise Program,Manual Therapy,Neuromuscular Re- education,Patient/Caregiver Education,Self-Care/Home Management,Soft Tissue Mobilization,Therapeutic Exercises Modalities Cold Pack/Ice Massage,Electric Stimulation,Hot Packs Next Visit Focus/Plan Next Note Type Treatment Note Next Visit Plan POC: Gait training, balance training, LE strengthening, functional mobility.
--- NOTE | 2021-07-14 11:18 | PT.OPPOC ---
Physical, Occupational & Speech Therapy At [facility] Current Diagnoses Cerebral infarction, unspecified (07/14/21) Muscle weakness (generalized) (07/14/21) Other abnormalities of gait and mobility (07/14/21) Repeated falls (07/14/21) Other symptoms and signs involving the musculoskeletal system (07/14/21) Visit Care Team Role Provider Type Xiomara Diego DO Attending Provider Physician Primary Care Provider Referring Provider Specialty: [facility] Address: [address] [place] [address] Email: [email or web address] Plan Of Care PT-OP-T Assessment and Plan Start: 03/13/21 14:33 Freq: Status: Active Protocol: Document 07/14/21 10:30 DCW (Rec: 07/14/21 11:18 DCW [id number]) Physical Therapy Assessment Impairments Impairments Activity Tolerance,Balance, Functional Activities, Functional Mobility,Gait,ROM, Soft Tissue Mobility,Strength, Transfers Other Concerns Fall Risk Increased falls risk per Hogan (41/56) and TUG (13.73) scores Goals Three Impairment Pt completes 6MWT with an average speed of 1.91 ft/sec Short Term Goal (STG) Pt to complete 6MWT with an average speed of at least 2.4 ft/sec for a total distance > 864' to show decreased risk of functional decline STG Duration Met Director Franchise Sales Goal (LTG) Pt to ambulate >1200' during 6 MWT to demonstrate a return to prior level of functional gait LTG Duration 10/14/21 - improving Two Impairment Increased falls risk per Hogan (41/56) and TUG (13.73) scores Short Term Goal (STG) Pt to increase Hogan score by at least 5 points to 46/56 to demonstrate decreased falls risk STG Duration Met Half-Way Goal (LTG) Pt to increase Hogan score by at least 5 points to 53/56 to demonstrate decreased falls risk LTG Duration 10/14/20 - improving (52/56) One Impairment Pt does not have an appropriate home exercise program Short Term Goal (STG) Pt to be independent and compliant with an appropriate HEP STG Duration Met Assessment Summary Assessment Pt making great progress overall, TUG slightly improved , but pt went from using AD to performing without AD, 6MWT approaching 1000' with AD, will likely attempt more challenging testing next visit . Physical Therapy Plan Frequency and Duration Frequency of Treatment 2x/Week Duration of Treatment Three months Plan of Care Start Date 07/14/21 Plan of Care End Date 10/14/21 Therapeutic Interventions Therapeutic Interventions Aquatic Therapy,Balance Training,Gait Training,Home Exercise Program,Manual Therapy,Neuromuscular Re- education,Patient/Caregiver Education,Self-Care/Home Management,Soft Tissue Mobilization,Therapeutic Exercises Modalities Cold Pack/Ice Massage,Electric Stimulation,Hot Packs Next Visit Focus/Plan Next Note Type Treatment Note Next Visit Plan POC: Gait training, balance training, LE strengthening, functional mobility. Plan of Care Dates Plan of Care Start Date 07/14/21 Plan of Care End Date 10/14/21 Electronically Signed by: Singh Harris, PT 07/14/21 [id number] Please Sign and Return: I have reviewed this Plan of Care and certify that the skilled therapy services above are required to meet the patient?s needs. Physician Signature Date Printed Name and Credentials Clinical Instructor Signature Printed Name and Credentials
--- NOTE | 2021-07-16 14:21 | PT.OTN ---
Current Diagnoses Cerebral infarction, unspecified (07/16/21) Muscle weakness (generalized) (07/16/21) Other abnormalities of gait and mobility (07/16/21) Repeated falls (07/16/21) Other symptoms and signs involving the musculoskeletal system (07/16/21) Physical Therapy Treatment Note PT-OP-A Visit Information Start: 03/13/21 14:33 Freq: Status: Active Protocol: Document 07/16/21 13:45 DCW (Rec: 07/16/21 14:20 DCW [id number]) Out-Patient Physical Therapy Visit Information Visit Information Visit Type Treatment Note Visit Start Time 13:45 Visit Stop Time 14:30 Total Visit Minutes 45 Visit Number 29 Number of SENIOR CONSULTANT Visits 0 Evaluation Information Evaluation Date 03/13/21 PT-OP-B Current Condition Start: 03/13/21 14:33 Freq: Status: Active Protocol: Document 03/13/21 12:00 DCW (Rec: 03/13/21 15:08 DCW [id number]) Current Condition History of Current Condition Onset Date 12/16/20 Current Complaints Hemiparesis, weakness, gait difficulty, decreased balance History of Current Condition Pt is a 65 year old female presenting three months s/p thalamic CVA. Pt presented to ED on 12/16/20 with sudden onset of left-sided weakness when waking up early in the AM to go to the bathroom. Pt noticed she could not more her left arm, tried to stand up, and fell over when her left leg was also unable to support her. The day after hospitalization, pt was transferred to [facility] for intensive rehab, notes she underwent 2.5 hours of PT/OT each day. Pt remained there for one months, and was then discharged home on January 13 with [facility], and since that time has been undergoing PT 2x/week and OT 3x/week, and was discharged from both disciplines earlier this week. Pt reports her left arm function is her biggest concern, and has been referred to outpatient OT for this, but also has difficulty with gait and balance. Pt wears an AFO on her left foot due to foot drop, and walks with a SPC. Admits she has had a few falls, but her balance has been a bit better since she left [facility] and has been slightly more stable at home. Treatment Goals Patient/Caregiver Goals I want to get back to normal function. I want to be able to walk independently without the cane, and use my arms like before. Really, I want to be able to live without depending on anyone, I was so independent before. PT-OP-C Subjective Start: 03/13/21 14:33 Freq: Status: Active Protocol: Document 07/16/21 13:45 DCW (Rec: 07/16/21 14:20 DCW [id number]) OP-PT Subjective Patient Comments Patient Comments Pt comes in today without an assistive device, feels fairly comfortable walking into the clinic without it. PT-OP-D Balance Start: 03/13/21 14:33 Freq: Status: Active Protocol: Document 07/14/21 10:30 DCW (Rec: 07/14/21 11:07 DCW [id number]) Balance Tests Hogan Balance Test Hogan Balance Test Score 52/56 Hogan Impairment Rating 1 to 19% Impaired (Score 45-55 ) Single Limb Standing Single Limb- Right 20 seconds Single Limb- Left 3 seconds Hogan Balance Assessment Evaluation Sitting to Standing Ability Independent w/out Hands Unsupported Stance Safely- 2 minutes Sitting Unsupported, Feet on Floor Safely- 2 minutes Standing to Sitting Ability Safely, Minimal Hand Use Transfer Ability Safely, Minimal Hand Use Unsupported Stance- Eyes Closed Safely, 10 seconds Unsupported Stance- Eyes Open Independent, 1 minute Reaching Forward Standing Safely, 5 inches Pick- Up Object From Floor Independent/Safe Look Behind Shoulder - Standing Shifts Weight Well Turning 360 Degrees Turns Bilateral, < 4 secs Unsupported Stance, Alternating Feet on (I)- 8 Steps in 20 secs Stair Unsupported Tandem Stance Holds Tandem- 30 seconds Unilateral Leg Stance Lifts Leg/Holds > 3 secs Total Score Hogan Total Score (out of 56 points) 52 Hogan Impairment Rating 1 to 19% Impaired (Score 45-55 ) PT-OP-E Functional Tests Start: 03/13/21 14:33 Freq: Status: Active Protocol: Document 07/14/21 10:30 DCW (Rec: 07/14/21 11:07 DCW [id number]) Functional Tests 6 Minute Walk Test Distance 989' Device Used SPC Comments 2.75 ft/sec Timed Up and Go (TUG) Score 11.31 /s AD Comments 3-trial average (11.56,11.21 , 11.17) TUG Impairment Rating 1 to <20% Impaired (Score 11) PT-OP-M Strength Start: 03/13/21 14:33 Freq: Status: Active Protocol: Document 07/14/21 10:30 DCW (Rec: 07/14/21 11:07 DCW [id number]) Hip Strength Hip Manual Muscle Testing Left Flexion (L2) 4- Good- Abduction 3+ Fair+ Adduction 4+ Good+ External Rotation 4- Good- Internal Rotation 3 Fair Knee Strength Knee Manual Muscle Testing Left Flexion (S2) 3- Fair- Extension (L3) 4+ Good+ Ankle/Foot Strength Ankle and Foot Manual Muscle Testing Left Dorsiflexion (L4) 2 Poor Plantarflexion (S1) 3 Fair PT-OP-Q Treatments Start: 03/13/21 14:33 Freq: Status: Active Protocol: Document 07/16/21 13:45 DCW (Rec: 07/16/21 14:20 DCW [id number]) Cardio Equipment Recumbent Bicycle Duration (Minutes) 5 Resistance 3 Seat Position 1 /c back rests Gym Equipment Shuttle Recovery Bilateral Squats Resistance 87# Shuttle Recovery Platform Unstable Reps/Time reps to tiring Unilateral Squats Resistance 37# Shuttle Recovery Platform Stable Reps/Time reps to tiring Shuttle Balance Red Details WBOS (EO/EC, Staggered) Gait Training Gait Activity 2 Description Amb using L UE to hold water cup Device Used none Level of Assistance SBA Neuro Re-Education Treatment Balance Activities 2 Details SLS 1 Details Wide-base lateral weight-shift to single leg PT-OP-R Modalities Start: 03/13/21 14:33 Freq: Status: Active Protocol: Document 07/16/21 13:45 DCW (Rec: 07/16/21 14:20 DCW [id number]) Electric Stimulation Electric Stimulation [place] Stimulation Body Location Left Anterior Tib Duration (Minutes) 10 Intensity 28 Patient Position Sitting Comments 5 on, 5 off Dorsiflexion AROM during contraction PT-OP-T Assessment and Plan Start: 03/13/21 14:33 Freq: Status: Active Protocol: Document 07/16/21 13:45 DCW (Rec: 07/16/21 14:20 DCW [id number]) Physical Therapy Assessment Impairments Impairments Activity Tolerance,Balance, Functional Activities, Functional Mobility,Gait,ROM, Soft Tissue Mobility,Strength, Transfers Other Concerns Fall Risk Increased falls risk per Hogan (41/56) and TUG (13.73) scores Goals Three Impairment Pt completes 6MWT with an average speed of 1.91 ft/sec Short Term Goal (STG) Pt to complete 6MWT with an average speed of at least 2.4 ft/sec for a total distance > 864' to show decreased risk of functional decline STG Duration Met Laminator Goal (LTG) Pt to ambulate >1200' during 6 MWT to demonstrate a return to prior level of functional gait LTG Duration 10/14/21 - improving Two Impairment Increased falls risk per Hogan (41/56) and TUG (13.73) scores Short Term Goal (STG) Pt to increase Hogan score by at least 5 points to 46/56 to demonstrate decreased falls risk STG Duration Met Laminator Goal (LTG) Pt to increase Hogan score by at least 5 points to 53/56 to demonstrate decreased falls risk LTG Duration 10/14/20 - improving (52/56) One Impairment Pt does not have an appropriate home exercise program Short Term Goal (STG) Pt to be independent and compliant with an appropriate HEP STG Duration Met Assessment Summary Assessment Performed more challenging balance exercises today, tried to focus on SLS and ambulation when holding object . Physical Therapy Plan Frequency and Duration Frequency of Treatment 2x/Week Duration of Treatment Three months Plan of Care Start Date 07/14/21 Plan of Care End Date 10/14/21 Therapeutic Interventions Therapeutic Interventions Aquatic Therapy,Balance Training,Gait Training,Home Exercise Program,Manual Therapy,Neuromuscular Re- education,Patient/Caregiver Education,Self-Care/Home Management,Soft Tissue Mobilization,Therapeutic Exercises Modalities Cold Pack/Ice Massage,Electric Stimulation,Hot Packs Next Visit Focus/Plan Next Note Type Treatment Note Next Visit Plan POC: Gait training, balance training, LE strengthening, functional mobility.
--- NOTE | 2021-07-21 11:12 | PT.OTN ---
Current Diagnoses Cerebral infarction, unspecified (07/21/21) Muscle weakness (generalized) (07/21/21) Other abnormalities of gait and mobility (07/21/21) Repeated falls (07/21/21) Other symptoms and signs involving the musculoskeletal system (07/21/21) Physical Therapy Treatment Note PT-OP-A Visit Information Start: 03/13/21 14:33 Freq: Status: Active Protocol: Document 07/21/21 10:31 DCW (Rec: 07/21/21 11:09 DCW [id number]) Out-Patient Physical Therapy Visit Information Visit Information Visit Type Treatment Note Visit Start Time 10:31 Visit Stop Time 11:15 Total Visit Minutes 44 Visit Number 30 Number of NET C DEVELOPER Visits 0 Evaluation Information Evaluation Date 03/13/21 PT-OP-B Current Condition Start: 03/13/21 14:33 Freq: Status: Active Protocol: Document 03/13/21 12:00 DCW (Rec: 03/13/21 15:08 DCW [id number]) Current Condition History of Current Condition Onset Date 12/16/20 Current Complaints Hemiparesis, weakness, gait difficulty, decreased balance History of Current Condition Pt is a 65 year old female presenting three months s/p thalamic CVA. Pt presented to ED on 12/16/20 with sudden onset of left-sided weakness when waking up early in the AM to go to the bathroom. Pt noticed she could not more her left arm, tried to stand up, and fell over when her left leg was also unable to support her. The day after hospitalization, pt was transferred to [facility] for intensive rehab, notes she underwent 2.5 hours of PT/OT each day. Pt remained there for one months, and was then discharged home on January 13 with [facility], and since that time has been undergoing PT 2x/week and OT 3x/week, and was discharged from both disciplines earlier this week. Pt reports her left arm function is her biggest concern, and has been referred to outpatient OT for this, but also has difficulty with gait and balance. Pt wears an AFO on her left foot due to foot drop, and walks with a SPC. Admits she has had a few falls, but her balance has been a bit better since she left [facility] and has been slightly more stable at home. Treatment Goals Patient/Caregiver Goals I want to get back to normal function. I want to be able to walk independently without the cane, and use my arms like before. Really, I want to be able to live without depending on anyone, I was so independent before. PT-OP-C Subjective Start: 03/13/21 14:33 Freq: Status: Active Protocol: Document 07/21/21 10:31 DCW (Rec: 07/21/21 11:09 DCW [id number]) OP-PT Subjective Patient Comments Patient Comments Pt having increased sciatica pain again today. PT-OP-D Balance Start: 03/13/21 14:33 Freq: Status: Active Protocol: Document 07/14/21 10:30 DCW (Rec: 07/14/21 11:07 DCW [id number]) Balance Tests Hogan Balance Test Hogan Balance Test Score 52/56 Hogan Impairment Rating 1 to 19% Impaired (Score 45-55 ) Single Limb Standing Single Limb- Right 20 seconds Single Limb- Left 3 seconds Hogan Balance Assessment Evaluation Sitting to Standing Ability Independent w/out Hands Unsupported Stance Safely- 2 minutes Sitting Unsupported, Feet on Floor Safely- 2 minutes Standing to Sitting Ability Safely, Minimal Hand Use Transfer Ability Safely, Minimal Hand Use Unsupported Stance- Eyes Closed Safely, 10 seconds Unsupported Stance- Eyes Open Independent, 1 minute Reaching Forward Standing Safely, 5 inches Pick- Up Object From Floor Independent/Safe Look Behind Shoulder - Standing Shifts Weight Well Turning 360 Degrees Turns Bilateral, < 4 secs Unsupported Stance, Alternating Feet on (I)- 8 Steps in 20 secs Stair Unsupported Tandem Stance Holds Tandem- 30 seconds Unilateral Leg Stance Lifts Leg/Holds > 3 secs Total Score Hogan Total Score (out of 56 points) 52 Hogan Impairment Rating 1 to 19% Impaired (Score 45-55 ) PT-OP-E Functional Tests Start: 03/13/21 14:33 Freq: Status: Active Protocol: Document 07/14/21 10:30 DCW (Rec: 07/14/21 11:07 DCW [id number]) Functional Tests 6 Minute Walk Test Distance 989' Device Used SPC Comments 2.75 ft/sec Timed Up and Go (TUG) Score 11.31 /s AD Comments 3-trial average (11.56,11.21 , 11.17) TUG Impairment Rating 1 to <20% Impaired (Score 11) PT-OP-M Strength Start: 03/13/21 14:33 Freq: Status: Active Protocol: Document 07/14/21 10:30 DCW (Rec: 07/14/21 11:07 DCW [id number]) Hip Strength Hip Manual Muscle Testing Left Flexion (L2) 4- Good- Abduction 3+ Fair+ Adduction 4+ Good+ External Rotation 4- Good- Internal Rotation 3 Fair Knee Strength Knee Manual Muscle Testing Left Flexion (S2) 3- Fair- Extension (L3) 4+ Good+ Ankle/Foot Strength Ankle and Foot Manual Muscle Testing Left Dorsiflexion (L4) 2 Poor Plantarflexion (S1) 3 Fair PT-OP-Q Treatments Start: 03/13/21 14:33 Freq: Status: Active Protocol: Document 07/21/21 10:31 DCW (Rec: 07/21/21 11:09 DCW [id number]) Cardio Equipment Recumbent Elliptical (Biodex) Duration (Minutes) 5 Resistance 4 Seat Position 5 Gym Equipment Sport Cord 1 Exercise Details Fwd/Bkwd/Lateral stepping Cord/Resistance Blue/White Therapeutic Exercises Sitting Exercises 4 Sitting Exercise Name Seated piriformis stretch Side left Manual Therapy Treatment Soft Tissue Mobilization piriformis Body Location L piriformis Mobilization Type Strumming,Sustained Pressure Intensity/Depth Moderate Body Position Sidelying Neuro Re-Education Treatment Balance Activities 3 Details Ball/Cone transfers using L UE Comments Semi-tandem, NBOS, and tandem stances PT-OP-R Modalities Start: 03/13/21 14:33 Freq: Status: Active Protocol: Document 07/21/21 10:31 DCW (Rec: 07/21/21 11:09 DCW [id number]) Electric Stimulation Electric Stimulation [place] Stimulation Body Location Left Anterior Tib Duration (Minutes) 10 Intensity 37 Patient Position Sitting Comments 5 on, 5 off Dorsiflexion AROM during contraction PT-OP-T Assessment and Plan Start: 03/13/21 14:33 Freq: Status: Active Protocol: Document 07/21/21 10:31 DCW (Rec: 07/21/21 11:09 DCW [id number]) Physical Therapy Assessment Impairments Impairments Activity Tolerance,Balance, Functional Activities, Functional Mobility,Gait,ROM, Soft Tissue Mobility,Strength, Transfers Other Concerns Fall Risk Increased falls risk per Hogan (41/56) and TUG (13.73) scores Goals Three Impairment Pt completes 6MWT with an average speed of 1.91 ft/sec Short Term Goal (STG) Pt to complete 6MWT with an average speed of at least 2.4 ft/sec for a total distance > 864' to show decreased risk of functional decline STG Duration Met Snf Goal (LTG) Pt to ambulate >1200' during 6 MWT to demonstrate a return to prior level of functional gait LTG Duration 10/14/21 - improving Two Impairment Increased falls risk per Hogan (41/56) and TUG (13.73) scores Short Term Goal (STG) Pt to increase Hogan score by at least 5 points to 46/56 to demonstrate decreased falls risk STG Duration Met Snf Goal (LTG) Pt to increase Hogan score by at least 5 points to 53/56 to demonstrate decreased falls risk LTG Duration 10/14/20 - improving (52/56) One Impairment Pt does not have an appropriate home exercise program Short Term Goal (STG) Pt to be independent and compliant with an appropriate HEP STG Duration Met Assessment Summary Assessment Wanted to try increased challenges today, however pt was limited due to left sciatic/piriformis pain. Pt did do well with small added challenges today. Physical Therapy Plan Frequency and Duration Frequency of Treatment 2x/Week Duration of Treatment Three months Plan of Care Start Date 07/14/21 Plan of Care End Date 10/14/21 Therapeutic Interventions Therapeutic Interventions Aquatic Therapy,Balance Training,Gait Training,Home Exercise Program,Manual Therapy,Neuromuscular Re- education,Patient/Caregiver Education,Self-Care/Home Management,Soft Tissue Mobilization,Therapeutic Exercises Modalities Cold Pack/Ice Massage,Electric Stimulation,Hot Packs Next Visit Focus/Plan Next Note Type Treatment Note Next Visit Plan If pt sciatic pain allows, work on increased balance challenge and ball/cone transfers using L UE
--- NOTE | 2021-07-28 11:53 | PT.OTN ---
Current Diagnoses Cerebral infarction, unspecified (07/28/21) Muscle weakness (generalized) (07/28/21) Other abnormalities of gait and mobility (07/28/21) Repeated falls (07/28/21) Other symptoms and signs involving the musculoskeletal system (07/28/21) Physical Therapy Treatment Note PT-OP-A Visit Information Start: 03/13/21 14:33 Freq: Status: Active Protocol: Document 07/28/21 10:35 ER (Rec: 07/28/21 11:53 ER [id number]) Out-Patient Physical Therapy Visit Information Visit Information Visit Type Treatment Note Visit Note NENA Bower lead treatment and provided education under direct supervision of DEBBIE Mcnally. Visit Start Time 10:35 Visit Stop Time 11:15 Total Visit Minutes 40 Visit Number 31 Number of ROUNDSMAN Visits 1 PT-OP-B Current Condition Start: 03/13/21 14:33 Freq: Status: Active Protocol: Document 03/13/21 12:00 DCW (Rec: 03/13/21 15:08 DCW [id number]) Current Condition History of Current Condition Onset Date 12/16/20 Current Complaints Hemiparesis, weakness, gait difficulty, decreased balance History of Current Condition Pt is a 65 year old female presenting three months s/p thalamic CVA. Pt presented to ED on 12/16/20 with sudden onset of left-sided weakness when waking up early in the AM to go to the bathroom. Pt noticed she could not more her left arm, tried to stand up, and fell over when her left leg was also unable to support her. The day after hospitalization, pt was transferred to [facility] for intensive rehab, notes she underwent 2.5 hours of PT/OT each day. Pt remained there for one months, and was then discharged home on January 13 with [facility], and since that time has been undergoing PT 2x/week and OT 3x/week, and was discharged from both disciplines earlier this week. Pt reports her left arm function is her biggest concern, and has been referred to outpatient OT for this, but also has difficulty with gait and balance. Pt wears an AFO on her left foot due to foot drop, and walks with a SPC. Admits she has had a few falls, but her balance has been a bit better since she left [facility] and has been slightly more stable at home. Treatment Goals Patient/Caregiver Goals I want to get back to normal function. I want to be able to walk independently without the cane, and use my arms like before. Really, I want to be able to live without depending on anyone, I was so independent before. PT-OP-C Subjective Start: 03/13/21 14:33 Freq: Status: Active Protocol: Document 07/28/21 10:35 ER (Rec: 07/28/21 11:53 ER [id number]) OP-PT Subjective Patient Comments Patient Comments Pt says her sciatic pain is a little better today, but seems to be positional with standing for a long time being harder. Using advil and sitting on a tennis ball to relieve pain. PT-OP-D Balance Start: 03/13/21 14:33 Freq: Status: Active Protocol: Document 07/14/21 10:30 DCW (Rec: 07/14/21 11:07 DCW [id number]) Balance Tests Hogan Balance Test Hogan Balance Test Score 52/56 Hogan Impairment Rating 1 to 19% Impaired (Score 45-55 ) Single Limb Standing Single Limb- Right 20 seconds Single Limb- Left 3 seconds Hogan Balance Assessment Evaluation Sitting to Standing Ability Independent w/out Hands Unsupported Stance Safely- 2 minutes Sitting Unsupported, Feet on Floor Safely- 2 minutes Standing to Sitting Ability Safely, Minimal Hand Use Transfer Ability Safely, Minimal Hand Use Unsupported Stance- Eyes Closed Safely, 10 seconds Unsupported Stance- Eyes Open Independent, 1 minute Reaching Forward Standing Safely, 5 inches Pick- Up Object From Floor Independent/Safe Look Behind Shoulder - Standing Shifts Weight Well Turning 360 Degrees Turns Bilateral, < 4 secs Unsupported Stance, Alternating Feet on (I)- 8 Steps in 20 secs Stair Unsupported Tandem Stance Holds Tandem- 30 seconds Unilateral Leg Stance Lifts Leg/Holds > 3 secs Total Score Hogan Total Score (out of 56 points) 52 Hogan Impairment Rating 1 to 19% Impaired (Score 45-55 ) PT-OP-E Functional Tests Start: 03/13/21 14:33 Freq: Status: Active Protocol: Document 07/14/21 10:30 DCW (Rec: 07/14/21 11:07 DCW [id number]) Functional Tests 6 Minute Walk Test Distance 989' Device Used SPC Comments 2.75 ft/sec Timed Up and Go (TUG) Score 11.31 /s AD Comments 3-trial average (11.56,11.21 , 11.17) TUG Impairment Rating 1 to <20% Impaired (Score 11) PT-OP-M Strength Start: 03/13/21 14:33 Freq: Status: Active Protocol: Document 07/14/21 10:30 DCW (Rec: 07/14/21 11:07 DCW [id number]) Hip Strength Hip Manual Muscle Testing Left Flexion (L2) 4- Good- Abduction 3+ Fair+ Adduction 4+ Good+ External Rotation 4- Good- Internal Rotation 3 Fair Knee Strength Knee Manual Muscle Testing Left Flexion (S2) 3- Fair- Extension (L3) 4+ Good+ Ankle/Foot Strength Ankle and Foot Manual Muscle Testing Left Dorsiflexion (L4) 2 Poor Plantarflexion (S1) 3 Fair PT-OP-Q Treatments Start: 03/13/21 14:33 Freq: Status: Active Protocol: Document 07/28/21 10:35 ER (Rec: 07/28/21 11:53 ER [id number]) Cardio Equipment Recumbent Elliptical (Wunsch-Brautkleid) Duration (Minutes) 5 Resistance 5 Seat Position 5 Other performed without AFO Therapeutic Exercises Supine Exercises ankle pump Supine Exercise Name SKTC active ankle pump x5 reps Side left Comments good movement, tires quickly Sciatic Nerve glide Supine Exercise Name added to HEP Side left Reps/Minutes 20x Comments modified to flex/ext of knee as Pt cannot DF/PF ankle Sitting Exercises Knee flexion Sitting Exercise Name Added to HEP. with slow eccentric return to start position, R foot on box Side left Resistance L1 TB Reps/Minutes 15x Comments cues for slow conc/ecc contraction Piriformis stretch Sitting Exercise Name sitting> supine, added to HEP Side left Reps/Minutes 3x 30 Comments progressed to supine for better stretch Gait Training Gait Activity gait no AD Description gait no AD Device Used 0 Level of Assistance CG- close SBA Surface firm Distance/Duration 180, then 20 ft front miror x4 laps Treatment Focus foot clearance, level pelvis, knee flexion, heel strike w core/hipabd fac Comments improved decreased lateral lean and LLE hip hike w/ cues for L knee flexion, level pelvis and core facilitation. LOB x1 intially recovery CGA and contact hallway rail Neuro Re-Education Treatment Balance Activities Ball/cone transfer course Details L>R, R>L with 5 sets of cones using LUE Reps/Duration 2 Comments Good balance control. Approx 1 sec hover over cone before release. PT-OP-R Modalities Start: 03/13/21 14:33 Freq: Status: Active Protocol: Document 07/21/21 10:31 DCW (Rec: 07/21/21 11:09 DCW [id number]) Electric Stimulation Electric Stimulation Austrian Stimulation Body Location Left Anterior Tib Duration (Minutes) 10 Intensity 37 Patient Position Sitting Comments 5 on, 5 off Dorsiflexion AROM during contraction PT-OP-T Assessment and Plan Start: 03/13/21 14:33 Freq: Status: Active Protocol: Document 07/28/21 10:35 ER (Rec: 07/28/21 11:53 ER [id number]) Physical Therapy Assessment Goals Three Impairment Pt completes 6MWT with an average speed of 1.91 ft/sec Short Term Goal (STG) Pt to complete 6MWT with an average speed of at least 2.4 ft/sec for a total distance > 864' to show decreased risk of functional decline STG Duration Met [facility] Clerk Goal (LTG) Pt to ambulate >1200' during 6 MWT to demonstrate a return to prior level of functional gait LTG Duration 10/14/21 - improving Two Impairment Increased falls risk per Hogan (41/56) and TUG (13.73) scores Short Term Goal (STG) Pt to increase Hogan score by at least 5 points to 46/56 to demonstrate decreased falls risk STG Duration Met Half-Way Goal (LTG) Pt to increase Hogan score by at least 5 points to 53/56 to demonstrate decreased falls risk LTG Duration 10/14/20 - improving (52/56) One Impairment Pt does not have an appropriate home exercise program Short Term Goal (STG) Pt to be independent and compliant with an appropriate HEP STG Duration Met Assessment Summary Assessment Sciatic pain is diminished from last visit, but still present. Initiated piriformis stretch and scitatic nerve glide. Pt performed ball/cone transfer activity easily, indicating need to advance balance challenge. Initiated resisted knee flexion ex to address hyperextension of L knee during gait. Updated HEP. Improved gait without AD with education on level pelvis, core facilitation, L knee flexion decreased L hip hike and lateral lean. Physical Therapy Plan Frequency and Duration Frequency of Treatment 2x/Week Duration of Treatment Three months Plan of Care Start Date 07/14/21 Plan of Care End Date 10/14/21 Therapeutic Interventions Therapeutic Interventions Aquatic Therapy,Balance Training,Gait Training,Home Exercise Program,Manual Therapy,Neuromuscular Re- education,Patient/Caregiver Education,Self-Care/Home Management,Soft Tissue Mobilization,Therapeutic Exercises Modalities Cold Pack/Ice Massage,Electric Stimulation,Hot Packs Next Visit Focus/Plan Next Note Type Treatment Note Next Visit Plan recheck HEP, continue with eccentric hamstring exercises. Gait quality phases. If pt sciatic pain allows, work on increased balance challenge and ball/cone transfers using L UE
--- NOTE | 2021-07-30 11:15 | PT.OTN ---
Current Diagnoses Cerebral infarction, unspecified (07/30/21) Muscle weakness (generalized) (07/30/21) Other abnormalities of gait and mobility (07/30/21) Repeated falls (07/30/21) Other symptoms and signs involving the musculoskeletal system (07/30/21) Physical Therapy Treatment Note PT-OP-A Visit Information Start: 03/13/21 14:33 Freq: Status: Active Protocol: Document 07/30/21 10:30 SP (Rec: 07/30/21 11:21 SP [id number]) Out-Patient Physical Therapy Visit Information Visit Information Visit Type Treatment Note Visit Start Time 10:30 Visit Stop Time 11:15 Total Visit Minutes 45 Visit Number 32 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 Pt presented to ED on 12/16/20 with sudden onset of left-sided weakness when waking up early in the AM to go to the bathroom. Pt noticed she could not more her left arm, tried to stand up, and fell over when her left leg was also unable to support her. The day after hospitalization, pt was transferred to [facility] for intensive rehab, notes she underwent 2.5 hours of PT/OT each day. Pt remained there for one months, and was then discharged home on January 13 with [facility], and since that time has been undergoing PT 2x/week and OT 3x/week, and was discharged from both disciplines earlier this week. Pt reports her left arm function is her biggest concern, and has been referred to outpatient OT for this, but also has difficulty with gait and balance. Pt wears an AFO on her left foot due to foot drop, and walks with a SPC. Admits she has had a few falls, but her balance has been a bit better since she left [facility] and has been slightly more stable at home. Treatment Goals Patient/Caregiver Goals I want to get back to normal function. I want to be able to walk independently without the cane, and use my arms like before. Really, I want to be able to live without depending on anyone, I was so independent before. PT-OP-C Subjective Start: 03/13/21 14:33 Freq: Status: Active Protocol: Document 07/30/21 10:30 SP (Rec: 07/30/21 11:21 SP [id number]) OP-PT Subjective Patient Comments Patient Comments Pt stated alot better today, pain in L buttock comes once in a while. Pt stated like last tx working on quality gait phases. PT-OP-D Balance Start: 03/13/21 14:33 Freq: Status: Active Protocol: Document 07/14/21 10:30 DCW (Rec: 07/14/21 11:07 DCW [id number]) Balance Tests Hogan Balance Test Hogan Balance Test Score 52/56 Hogan Impairment Rating 1 to 19% Impaired (Score 45-55 ) Single Limb Standing Single Limb- Right 20 seconds Single Limb- Left 3 seconds Hogan Balance Assessment Evaluation Sitting to Standing Ability Independent w/out Hands Unsupported Stance Safely- 2 minutes Sitting Unsupported, Feet on Floor Safely- 2 minutes Standing to Sitting Ability Safely, Minimal Hand Use Transfer Ability Safely, Minimal Hand Use Unsupported Stance- Eyes Closed Safely, 10 seconds Unsupported Stance- Eyes Open Independent, 1 minute Reaching Forward Standing Safely, 5 inches Pick- Up Object From Floor Independent/Safe Look Behind Shoulder - Standing Shifts Weight Well Turning 360 Degrees Turns Bilateral, < 4 secs Unsupported Stance, Alternating Feet on (I)- 8 Steps in 20 secs Stair Unsupported Tandem Stance Holds Tandem- 30 seconds Unilateral Leg Stance Lifts Leg/Holds > 3 secs Total Score Hogan Total Score (out of 56 points) 52 Hogan Impairment Rating 1 to 19% Impaired (Score 45-55 ) PT-OP-E Functional Tests Start: 03/13/21 14:33 Freq: Status: Active Protocol: Document 07/14/21 10:30 DCW (Rec: 07/14/21 11:07 DCW [id number]) Functional Tests 6 Minute Walk Test Distance 989' Device Used SPC Comments 2.75 ft/sec Timed Up and Go (TUG) Score 11.31 /s AD Comments 3-trial average (11.56,11.21 , 11.17) TUG Impairment Rating 1 to <20% Impaired (Score 11) PT-OP-M Strength Start: 03/13/21 14:33 Freq: Status: Active Protocol: Document 07/14/21 10:30 DCW (Rec: 07/14/21 11:07 DCW [id number]) Hip Strength Hip Manual Muscle Testing Left Flexion (L2) 4- Good- Abduction 3+ Fair+ Adduction 4+ Good+ External Rotation 4- Good- Internal Rotation 3 Fair Knee Strength Knee Manual Muscle Testing Left Flexion (S2) 3- Fair- Extension (L3) 4+ Good+ Ankle/Foot Strength Ankle and Foot Manual Muscle Testing Left Dorsiflexion (L4) 2 Poor Plantarflexion (S1) 3 Fair PT-OP-Q Treatments Start: 03/13/21 14:33 Freq: Status: Active Protocol: Document 07/30/21 10:30 SP (Rec: 07/30/21 11:21 SP [id number]) Cardio Equipment Recumbent Elliptical ([employer]) Duration (Minutes) 5 Resistance 5 Seat Position closest Other performed without AFO Gym Equipment Shuttle Recovery Unilateral Squats Details alternate LEs x2 sets Resistance 37# Shuttle Recovery Platform Stable Reps/Time reps to tiring (25 reps) Shuttle Balance Red Details WBOS, NBOS, Staggered Comments EO stationary and head turns/ EC CG- Min A cues for even wt distribution more in to L, tends to wt shift more over RLE. Sport Cord 1 Exercise Details Fwd/Bkwd/Lateral stepping (w/ L AFO) Cord/Resistance green Comments cued L knee flexion during swing phase, soft knee during midstance w/ core fac with slow eccentric control Therapeutic Exercises Sitting Exercises Piriformis stretch Sitting Exercise Name sitting fe Side left Reps/Minutes 3x 30 Comments progressed to supine for better stretch Gait Training Gait Activity gait no AD Description gait no AD Device Used 0 Level of Assistance CG- close SBA Surface firm Distance/Duration 180, then 20 ft front miror x4 laps Treatment Focus foot clearance, level pelvis, knee flexion, heel strike w core/hipabd fac Comments improved decreased lateral lean and LLE hip hike w/ cues for L knee flexion, level pelvis and core facilitation. Introduced chrissy with good understanding trial. WIll add metronome next tx. Provided 1/2 lift in sole of shoe to assist L knee flexion this lessening hyperextension with good results- decreased hyperextension. PT-OP-R Modalities Start: 03/13/21 14:33 Freq: Status: Active Protocol: Document 07/21/21 10:31 DCW (Rec: 07/21/21 11:09 DCW [id number]) Electric Stimulation Electric Stimulation British Stimulation Body Location Left Anterior Tib Duration (Minutes) 10 Intensity 37 Patient Position Sitting Comments 5 on, 5 off Dorsiflexion AROM during contraction PT-OP-T Assessment and Plan Start: 03/13/21 14:33 Freq: Status: Active Protocol: Document 07/30/21 10:30 SP (Rec: 07/30/21 11:21 SP [id number]) Physical Therapy Assessment Goals Three Impairment Pt completes 6MWT with an average speed of 1.91 ft/sec Short Term Goal (STG) Pt to complete 6MWT with an average speed of at least 2.4 ft/sec for a total distance > 864' to show decreased risk of functional decline STG Duration Met Manager Hi Goal (LTG) Pt to ambulate >1200' during 6 MWT to demonstrate a return to prior level of functional gait LTG Duration 10/14/21 - improving Two Impairment Increased falls risk per Hogan (41/56) and TUG (13.73) scores Short Term Goal (STG) Pt to increase Hogan score by at least 5 points to 46/56 to demonstrate decreased falls risk STG Duration Met Usp Goal (LTG) Pt to increase Hogan score by at least 5 points to 53/56 to demonstrate decreased falls risk LTG Duration 10/14/20 - improving (52/56) One Impairment Pt does not have an appropriate home exercise program Short Term Goal (STG) Pt to be independent and compliant with an appropriate HEP STG Duration Met Assessment Summary Assessment Pt improved trunk alignment, level pelvis, LLE knee flexion , heel toe with increased self corrections post cuing (AFO donned). Noted increased forceful L knee hyperextending during midstance, provided 1/ 2 heel lift under sole inside [employer] sneaker with decrease hyperextension noted. Physical Therapy Plan Frequency and Duration Frequency of Treatment 2x/Week Duration of Treatment Three months Plan of Care Start Date 07/14/21 Plan of Care End Date 10/14/21 Therapeutic Interventions Therapeutic Interventions Aquatic Therapy,Balance Training,Gait Training,Home Exercise Program,Manual Therapy,Neuromuscular Re- education,Patient/Caregiver Education,Self-Care/Home Management,Soft Tissue Mobilization,Therapeutic Exercises Modalities Cold Pack/Ice Massage,Electric Stimulation,Hot Packs Next Visit Focus/Plan Next Note Type Treatment Note Next Visit Plan recheck HEP HS curl TB, response to 1/2 heel lift in L shoe. Estim next tx. If pt sciatic pain allows, work on increased balance challenge and ball/cone transfers using L UE
--- NOTE | 2021-08-04 15:59 | PT.OTN ---
Current Diagnoses Cerebral infarction, unspecified (08/04/21) Muscle weakness (generalized) (08/04/21) Other abnormalities of gait and mobility (08/04/21) Repeated falls (08/04/21) Other symptoms and signs involving the musculoskeletal system (08/04/21) Physical Therapy Treatment Note PT-OP-A Visit Information Start: 03/13/21 14:33 Freq: Status: Active Protocol: Document 08/04/21 10:30 ER (Rec: 08/04/21 11:27 ER [id number]) Out-Patient Physical Therapy Visit Information Visit Information Visit Type Treatment Note Visit Note NENA Bower lead treatment and provided education under direct supervision of DEBBIE Mcnally. Visit Start Time 10:30 Visit Stop Time 11:25 Total Visit Minutes 55 Visit Number 33 Number of CLUBHOUSE ATTENDANT Visits 3 PT-OP-B Current Condition Start: 03/13/21 14:33 Freq: Status: Active Protocol: Document 03/13/21 12:00 DCW (Rec: 03/13/21 15:08 DCW [id number]) Current Condition History of Current Condition Onset Date 12/16/20 Current Complaints Hemiparesis, weakness, gait difficulty, decreased balance History of Current Condition Pt is a 65 year old female presenting three months s/p thalamic CVA. Pt presented to ED on 12/16/20 with sudden onset of left-sided weakness when waking up early in the AM to go to the bathroom. Pt noticed she could not more her left arm, tried to stand up, and fell over when her left leg was also unable to support her. The day after hospitalization, pt was transferred to [facility] for intensive rehab, notes she underwent 2.5 hours of PT/OT each day. Pt remained there for one months, and was then discharged home on January 13 with [facility], and since that time has been undergoing PT 2x/week and OT 3x/week, and was discharged from both disciplines earlier this week. Pt reports her left arm function is her biggest concern, and has been referred to outpatient OT for this, but also has difficulty with gait and balance. Pt wears an AFO on her left foot due to foot drop, and walks with a SPC. Admits she has had a few falls, but her balance has been a bit better since she left [facility] and has been slightly more stable at home. Treatment Goals Patient/Caregiver Goals I want to get back to normal function. I want to be able to walk independently without the cane, and use my arms like before. Really, I want to be able to live without depending on anyone, I was so independent before. PT-OP-C Subjective Start: 03/13/21 14:33 Freq: Status: Active Protocol: Document 08/04/21 10:30 ER (Rec: 08/04/21 11:27 ER [id number]) OP-PT Subjective Patient Comments Patient Comments Pt stated that with the shoe lift under the AFO she feels like she doesn't have to lift her L knee so much to advance her foot, that her gait is less tiring and more efficient . Said that piriformis is better, but becomes sore after standing for a while. PT-OP-D Balance Start: 03/13/21 14:33 Freq: Status: Active Protocol: Document 07/14/21 10:30 DCW (Rec: 07/14/21 11:07 DCW [id number]) Balance Tests Hogan Balance Test Hogan Balance Test Score 52/56 Hogan Impairment Rating 1 to 19% Impaired (Score 45-55 ) Single Limb Standing Single Limb- Right 20 seconds Single Limb- Left 3 seconds Hogan Balance Assessment Evaluation Sitting to Standing Ability Independent w/out Hands Unsupported Stance Safely- 2 minutes Sitting Unsupported, Feet on Floor Safely- 2 minutes Standing to Sitting Ability Safely, Minimal Hand Use Transfer Ability Safely, Minimal Hand Use Unsupported Stance- Eyes Closed Safely, 10 seconds Unsupported Stance- Eyes Open Independent, 1 minute Reaching Forward Standing Safely, 5 inches Pick- Up Object From Floor Independent/Safe Look Behind Shoulder - Standing Shifts Weight Well Turning 360 Degrees Turns Bilateral, < 4 secs Unsupported Stance, Alternating Feet on (I)- 8 Steps in 20 secs Stair Unsupported Tandem Stance Holds Tandem- 30 seconds Unilateral Leg Stance Lifts Leg/Holds > 3 secs Total Score Hogan Total Score (out of 56 points) 52 Hogan Impairment Rating 1 to 19% Impaired (Score 45-55 ) PT-OP-E Functional Tests Start: 03/13/21 14:33 Freq: Status: Active Protocol: Document 07/14/21 10:30 DCW (Rec: 07/14/21 11:07 DCW [id number]) Functional Tests 6 Minute Walk Test Distance 989' Device Used SPC Comments 2.75 ft/sec Timed Up and Go (TUG) Score 11.31 /s AD Comments 3-trial average (11.56,11.21 , 11.17) TUG Impairment Rating 1 to <20% Impaired (Score 11) PT-OP-M Strength Start: 03/13/21 14:33 Freq: Status: Active Protocol: Document 07/14/21 10:30 DCW (Rec: 07/14/21 11:07 DCW [id number]) Hip Strength Hip Manual Muscle Testing Left Flexion (L2) 4- Good- Abduction 3+ Fair+ Adduction 4+ Good+ External Rotation 4- Good- Internal Rotation 3 Fair Knee Strength Knee Manual Muscle Testing Left Flexion (S2) 3- Fair- Extension (L3) 4+ Good+ Ankle/Foot Strength Ankle and Foot Manual Muscle Testing Left Dorsiflexion (L4) 2 Poor Plantarflexion (S1) 3 Fair PT-OP-Q Treatments Start: 03/13/21 14:33 Freq: Status: Active Protocol: Document 08/04/21 10:30 ER (Rec: 08/04/21 11:27 ER [id number]) Cardio Equipment Recumbent Elliptical (Biodex) Duration (Minutes) 5 Resistance 5 Seat Position closest Other performed without AFO 40 RPM Gym Equipment Shuttle Recovery Bilateral Squats Details w/out L AFO Resistance 62 Shuttle Recovery Platform Stable Reps/Time 10x Unilateral Squats Resistance 25# Shuttle Recovery Platform Stable Reps/Time 10x each side Sport Cord 1 Exercise Details Fwd/Bkwd/Lateral stepping (w/ L AFO) Cord/Resistance green Reps/Duration 5x each direction Comments Cued to lead with heel in lateral to improve B foot alignment. Cued for L knee flexion during swing phase, soft knee during midstance. Therapeutic Exercises Sitting Exercises Piriformis stretch Sitting Exercise Name sitting Side left Reps/Minutes 3x 30 Comments cued to bring knee to opp shoulder for better stretch and UE involvement PT-OP-R Modalities Start: 03/13/21 14:33 Freq: Status: Active Protocol: Document 08/04/21 10:30 ER (Rec: 08/04/21 11:27 ER [id number]) Electric Stimulation Electric Stimulation Spanish Stimulation Body Location Left Anterior Tib Duration (Minutes) 8 Intensity 24 Patient Position Sitting Comments 5 on, 5 off Dorsiflexion AROM during contraction. Pt able to DF with AAROM > able to DF and maintain without assistance. Pt DF activiation decreased, but reintroduction of AAROM allowed Pt to then DF and maintain without support for several reps. However, muscle began to fatigue at ~7 minutes, but still able to get a contraction. PT-OP-T Assessment and Plan Start: 03/13/21 14:33 Freq: Status: Active Protocol: Document 08/04/21 10:30 ER (Rec: 08/04/21 11:27 ER [id number]) Physical Therapy Assessment Goals Three Impairment Pt completes 6MWT with an average speed of 1.91 ft/sec Short Term Goal (STG) Pt to complete 6MWT with an average speed of at least 2.4 ft/sec for a total distance > 864' to show decreased risk of functional decline STG Duration Met Spooling Supervisor Goal (LTG) Pt to ambulate >1200' during 6 MWT to demonstrate a return to prior level of functional gait LTG Duration 10/14/21 - improving Two Impairment Increased falls risk per Hogan (41/56) and TUG (13.73) scores Short Term Goal (STG) Pt to increase Hogan score by at least 5 points to 46/56 to demonstrate decreased falls risk STG Duration Met Correction Goal (LTG) Pt to increase Hogan score by at least 5 points to 53/56 to demonstrate decreased falls risk LTG Duration 10/14/20 - improving (52/56) One Impairment Pt does not have an appropriate home exercise program Short Term Goal (STG) Pt to be independent and compliant with an appropriate HEP STG Duration Met Assessment Summary Assessment Pt improved control of L knee extension/ not locking out on biodex, shuttle, and sport cord, with cues. Cues on sport cord to flex knees (as if doing hurdles) and maintain hip alignment. Pt showed good initial DF contraction with E- stim, but needed AAROM to continue. After providing for a few reps, Pt was again able to DF and maintain on her own for3-5 reps. Muscle began to fatigue at~7 min, resulting in contraction with minimal DF. Physical Therapy Plan Frequency and Duration Frequency of Treatment 2x/Week Duration of Treatment Three months Plan of Care Start Date 07/14/21 Plan of Care End Date 10/14/21 Therapeutic Interventions Therapeutic Interventions Aquatic Therapy,Balance Training,Gait Training,Home Exercise Program,Manual Therapy,Neuromuscular Re- education,Patient/Caregiver Education,Self-Care/Home Management,Soft Tissue Mobilization,Therapeutic Exercises Modalities Cold Pack/Ice Massage,Electric Stimulation,Hot Packs Next Visit Focus/Plan Next Note Type Treatment Note Next Visit Plan recheck HEP, Hamstring curl TB . Is pt sciatic pain allows, work on increased balance challenges and ball/cone transfers using L UE
--- NOTE | 2021-08-06 14:34 | PT.OTN ---
Current Diagnoses Cerebral infarction, unspecified (08/06/21) Muscle weakness (generalized) (08/06/21) Other abnormalities of gait and mobility (08/06/21) Repeated falls (08/06/21) Other symptoms and signs involving the musculoskeletal system (08/06/21) Physical Therapy Treatment Note PT-OP-A Visit Information Start: 03/13/21 14:33 Freq: Status: Active Protocol: Document 08/06/21 13:49 SP (Rec: 08/06/21 14:36 SP [id number]) Out-Patient Physical Therapy Visit Information Visit Information Visit Type Treatment Note Visit Start Time 13:49 Visit Stop Time 14:34 Total Visit Minutes 45 Visit Number 34 Number of GLAUCOMA SPECIALIST Visits 4 Evaluation Information Evaluation Date 03/13/21 PT-OP-B Current Condition Start: 03/13/21 14:33 Freq: Status: Active Protocol: Document 03/13/21 12:00 DCW (Rec: 03/13/21 15:08 DCW [id number]) Current Condition History of Current Condition Onset Date 12/16/20 Current Complaints Hemiparesis, weakness, gait difficulty, decreased balance History of Current Condition Pt is a 65 year old female presenting three months s/p thalamic CVA. Pt presented to ED on 12/16/20 with sudden onset of left-sided weakness when waking up early in the AM to go to the bathroom. Pt noticed she could not more her left arm, tried to stand up, and fell over when her left leg was also unable to support her. The day after hospitalization, pt was transferred to [facility], [place] for intensive rehab, notes she underwent 2.5 hours of PT/OT each day. Pt remained there for one months, and was then discharged home on January 13 with [facility], and since that time has been undergoing PT 2x/week and OT 3x/week, and was discharged from both disciplines earlier this week. Pt reports her left arm function is her biggest concern, and has been referred to outpatient OT for this, but also has difficulty with gait and balance. Pt wears an AFO on her left foot due to foot drop, and walks with a SPC. Admits she has had a few falls, but her balance has been a bit better since she left [facility] [place] and has been slightly more stable at home. Treatment Goals Patient/Caregiver Goals I want to get back to normal function. I want to be able to walk independently without the cane, and use my arms like before. Really, I want to be able to live without depending on anyone, I was so independent before. PT-OP-C Subjective Start: 03/13/21 14:33 Freq: Status: Active Protocol: Document 08/06/21 13:49 SP (Rec: 08/06/21 14:36 SP [id number]) OP-PT Subjective Patient Comments Patient Comments Pt stated that the 1/2 heel lift in L shoe has been helpful not having to work hard to bend L knee when walking, less effort expended. PT-OP-D Balance Start: 03/13/21 14:33 Freq: Status: Active Protocol: Document 07/14/21 10:30 DCW (Rec: 07/14/21 11:07 DCW [id number]) Balance Tests Hogan Balance Test Hogan Balance Test Score 52/56 Hogan Impairment Rating 1 to 19% Impaired (Score 45-55 ) Single Limb Standing Single Limb- Right 20 seconds Single Limb- Left 3 seconds Hogan Balance Assessment Evaluation Sitting to Standing Ability Independent w/out Hands Unsupported Stance Safely- 2 minutes Sitting Unsupported, Feet on Floor Safely- 2 minutes Standing to Sitting Ability Safely, Minimal Hand Use Transfer Ability Safely, Minimal Hand Use Unsupported Stance- Eyes Closed Safely, 10 seconds Unsupported Stance- Eyes Open Independent, 1 minute Reaching Forward Standing Safely, 5 inches Pick- Up Object From Floor Independent/Safe Look Behind Shoulder - Standing Shifts Weight Well Turning 360 Degrees Turns Bilateral, < 4 secs Unsupported Stance, Alternating Feet on (I)- 8 Steps in 20 secs Stair Unsupported Tandem Stance Holds Tandem- 30 seconds Unilateral Leg Stance Lifts Leg/Holds > 3 secs Total Score Hogan Total Score (out of 56 points) 52 Hogan Impairment Rating 1 to 19% Impaired (Score 45-55 ) PT-OP-E Functional Tests Start: 03/13/21 14:33 Freq: Status: Active Protocol: Document 07/14/21 10:30 DCW (Rec: 07/14/21 11:07 DCW [id number]) Functional Tests 6 Minute Walk Test Distance 989' Device Used SPC Comments 2.75 ft/sec Timed Up and Go (TUG) Score 11.31 /s AD Comments 3-trial average (11.56,11.21 , 11.17) TUG Impairment Rating 1 to <20% Impaired (Score 11) PT-OP-M Strength Start: 03/13/21 14:33 Freq: Status: Active Protocol: Document 07/14/21 10:30 DCW (Rec: 07/14/21 11:07 DCW [id number]) Hip Strength Hip Manual Muscle Testing Left Flexion (L2) 4- Good- Abduction 3+ Fair+ Adduction 4+ Good+ External Rotation 4- Good- Internal Rotation 3 Fair Knee Strength Knee Manual Muscle Testing Left Flexion (S2) 3- Fair- Extension (L3) 4+ Good+ Ankle/Foot Strength Ankle and Foot Manual Muscle Testing Left Dorsiflexion (L4) 2 Poor Plantarflexion (S1) 3 Fair PT-OP-Q Treatments Start: 03/13/21 14:33 Freq: Status: Active Protocol: Document 08/06/21 13:49 SP (Rec: 08/06/21 14:36 SP [id number]) Cardio Equipment Recumbent Elliptical ([employer]) Duration (Minutes) 5 Resistance 5> 4 Seat Position closest w/ small cushion behind back Other performed without AFO 40> 35 RPM Gym Equipment Shuttle Recovery Unilateral Squats Details L (no AFO) Resistance 25# Shuttle Recovery Platform Stable Reps/Time 3x10- cued slow con/ eccentric control, no hyperextension Shuttle Balance Red Details WBOS, NBOS, Staggered Reps/Duration AFO off Comments EO stationary, wt shift f/b, head turns, EC WBOS only up to 4 sec: CG- Min A cues for even wt distribution more in to L, tends to wt shift more over RLE. Therapeutic Exercises Sitting Exercises Knee flexion Sitting Exercise Name reviewed HEP. with slow eccentric return to start position, R foot on box Side left Resistance L1 TB Equipment Used 18 chair sitting tall, femur supported Reps/Minutes 15x Comments cues for slow conc/ecc contraction Piriformis stretch Sitting Exercise Name sitting Side left Reps/Minutes 3x 30 Comments cued to bring knee to opp shoulder for better stretch and UE involvement Neuro Re-Education Treatment Balance Activities Ball/cone transfer course Details L>R, cued squat and wt shift over LLE (AFO doffed) Surface firm Equipment 5 sets of cones using LUE, golf ball Reps/Duration 2 lengths Comments Good balance control holding squat positioning. Approx 3 sec hover over cone before release using golf ball. PT-OP-R Modalities Start: 03/13/21 14:33 Freq: Status: Active Protocol: Document 08/06/21 13:49 SP (Rec: 08/06/21 14:36 SP [id number]) Electric Stimulation Electric Stimulation Ukrainian Stimulation Body Location Left Anterior Tib Duration (Minutes) 8 Intensity 46 Patient Position Sitting Comments 5 on, 5 off toe extension and Dorsiflexion AROM during contraction. Pt able to toe extension and DF with AROM > able to maintain DF without assistance today. Pt DF activiation decreased, but reintroduction of AAROM end feed DF allowed Pt to then DF and maintain without support for several reps. However, muscle began to fatigue at ~7 minutes, but still able to get a contraction. PT-OP-T Assessment and Plan Start: 03/13/21 14:33 Freq: Status: Active Protocol: Document 08/06/21 13:49 SP (Rec: 08/06/21 14:36 SP [id number]) Physical Therapy Assessment Goals Three Impairment Pt completes 6MWT with an average speed of 1.91 ft/sec Short Term Goal (STG) Pt to complete 6MWT with an average speed of at least 2.4 ft/sec for a total distance > 864' to show decreased risk of functional decline STG Duration Met Care Home Goal (LTG) Pt to ambulate >1200' during 6 MWT to demonstrate a return to prior level of functional gait LTG Duration 10/14/21 - improving Two Impairment Increased falls risk per Hogan (41/56) and TUG (13.73) scores Short Term Goal (STG) Pt to increase Hogan score by at least 5 points to 46/56 to demonstrate decreased falls risk STG Duration Met Care Home Goal (LTG) Pt to increase Hogan score by at least 5 points to 53/56 to demonstrate decreased falls risk LTG Duration 10/14/20 - improving (52/56) One Impairment Pt does not have an appropriate home exercise program Short Term Goal (STG) Pt to be independent and compliant with an appropriate HEP STG Duration Met Assessment Summary Assessment Pt improved wt shift over LLE equal stance time w/ hover squat golf ball transfer today w/ LUE. Assessed shuttle balance without L AFO today, no significant diffference, intermittent cues for equal stance time, need to wt into LLE 10%- 25% assist in various stance positioning, UE contact as needed. Pt improved maintain DF AROM with stim today, occasional contact feedback for endurance hold. Physical Therapy Plan Frequency and Duration Frequency of Treatment 2x/Week Duration of Treatment Three months Plan of Care Start Date 07/14/21 Plan of Care End Date 10/14/21 Therapeutic Interventions Therapeutic Interventions Aquatic Therapy,Balance Training,Gait Training,Home Exercise Program,Manual Therapy,Neuromuscular Re- education,Patient/Caregiver Education,Self-Care/Home Management,Soft Tissue Mobilization,Therapeutic Exercises Modalities Cold Pack/Ice Massage,Electric Stimulation,Hot Packs Next Visit Focus/Plan Next Note Type Treatment Note Next Visit Plan Continue Hamstring curl TB, ball cone transfer and shuttle balance/ recovery without AFO . POC: increased balance challenges and ball/cone transfers using L UE, STMs L Piriformis as needed.
--- NOTE | 2021-08-18 11:15 | PT.OTN ---
Current Diagnoses Cerebral infarction, unspecified (08/18/21) Muscle weakness (generalized) (08/18/21) Other abnormalities of gait and mobility (08/18/21) Repeated falls (08/18/21) Other symptoms and signs involving the musculoskeletal system (08/18/21) Physical Therapy Treatment Note PT-OP-A Visit Information Start: 03/13/21 14:33 Freq: Status: Active Protocol: Document 08/18/21 10:30 DCW (Rec: 08/18/21 11:15 DCW [id number]) Out-Patient Physical Therapy Visit Information Visit Information Visit Type Treatment Note Visit Start Time 10:30 Visit Stop Time 11:15 Total Visit Minutes 45 Visit Number 35 Number of MEDICAL TECHNICIAN Visits 0 Evaluation Information Evaluation Date 03/13/21 PT-OP-B Current Condition Start: 03/13/21 14:33 Freq: Status: Active Protocol: Document 03/13/21 12:00 DCW (Rec: 03/13/21 15:08 DCW [id number]) Current Condition History of Current Condition Onset Date 12/16/20 Current Complaints Hemiparesis, weakness, gait difficulty, decreased balance History of Current Condition Pt is a 65 year old female presenting three months s/p thalamic CVA. Pt presented to ED on 12/16/20 with sudden onset of left-sided weakness when waking up early in the AM to go to the bathroom. Pt noticed she could not more her left arm, tried to stand up, and fell over when her left leg was also unable to support her. The day after hospitalization, pt was transferred to [facility] for intensive rehab, notes she underwent 2.5 hours of PT/OT each day. Pt remained there for one months, and was then discharged home on January 13 with [facility], and since that time has been undergoing PT 2x/week and OT 3x/week, and was discharged from both disciplines earlier this week. Pt reports her left arm function is her biggest concern, and has been referred to outpatient OT for this, but also has difficulty with gait and balance. Pt wears an AFO on her left foot due to foot drop, and walks with a SPC. Admits she has had a few falls, but her balance has been a bit better since she left [facility] and has been slightly more stable at home. Treatment Goals Patient/Caregiver Goals I want to get back to normal function. I want to be able to walk independently without the cane, and use my arms like before. Really, I want to be able to live without depending on anyone, I was so independent before. PT-OP-C Subjective Start: 03/13/21 14:33 Freq: Status: Active Protocol: Document 08/18/21 10:30 DCW (Rec: 08/18/21 11:15 DCW [id number]) OP-PT Subjective Patient Comments Patient Comments I'm doing well, but I seem to have lost my cane when I was in [place]. PT-OP-D Balance Start: 03/13/21 14:33 Freq: Status: Active Protocol: Document 07/14/21 10:30 DCW (Rec: 07/14/21 11:07 DCW [id number]) Balance Tests Hogan Balance Test Hogan Balance Test Score 52/56 Hogan Impairment Rating 1 to 19% Impaired (Score 45-55 ) Single Limb Standing Single Limb- Right 20 seconds Single Limb- Left 3 seconds Hogan Balance Assessment Evaluation Sitting to Standing Ability Independent w/out Hands Unsupported Stance Safely- 2 minutes Sitting Unsupported, Feet on Floor Safely- 2 minutes Standing to Sitting Ability Safely, Minimal Hand Use Transfer Ability Safely, Minimal Hand Use Unsupported Stance- Eyes Closed Safely, 10 seconds Unsupported Stance- Eyes Open Independent, 1 minute Reaching Forward Standing Safely, 5 inches Pick- Up Object From Floor Independent/Safe Look Behind Shoulder - Standing Shifts Weight Well Turning 360 Degrees Turns Bilateral, < 4 secs Unsupported Stance, Alternating Feet on (I)- 8 Steps in 20 secs Stair Unsupported Tandem Stance Holds Tandem- 30 seconds Unilateral Leg Stance Lifts Leg/Holds > 3 secs Total Score Hogan Total Score (out of 56 points) 52 Hogan Impairment Rating 1 to 19% Impaired (Score 45-55 ) PT-OP-E Functional Tests Start: 03/13/21 14:33 Freq: Status: Active Protocol: Document 07/14/21 10:30 DCW (Rec: 07/14/21 11:07 DCW [id number]) Functional Tests 6 Minute Walk Test Distance 989' Device Used SPC Comments 2.75 ft/sec Timed Up and Go (TUG) Score 11.31 /s AD Comments 3-trial average (11.56,11.21 , 11.17) TUG Impairment Rating 1 to <20% Impaired (Score 11) PT-OP-M Strength Start: 03/13/21 14:33 Freq: Status: Active Protocol: Document 07/14/21 10:30 DCW (Rec: 07/14/21 11:07 DCW [id number]) Hip Strength Hip Manual Muscle Testing Left Flexion (L2) 4- Good- Abduction 3+ Fair+ Adduction 4+ Good+ External Rotation 4- Good- Internal Rotation 3 Fair Knee Strength Knee Manual Muscle Testing Left Flexion (S2) 3- Fair- Extension (L3) 4+ Good+ Ankle/Foot Strength Ankle and Foot Manual Muscle Testing Left Dorsiflexion (L4) 2 Poor Plantarflexion (S1) 3 Fair PT-OP-Q Treatments Start: 03/13/21 14:33 Freq: Status: Active Protocol: Document 08/18/21 10:30 DCW (Rec: 08/18/21 11:15 DCW [id number]) Cardio Equipment Recumbent Elliptical ([employer] Duration (Minutes) 5 Resistance 4 Seat Position closest Gym Equipment Shuttle Recovery Unilateral Squats Details L (no AFO) Resistance 25# Shuttle Recovery Platform Stable Reps/Time 3x10- cued slow con/ eccentric control, no hyperextension Shuttle Balance Red Details WBOS, NBOS, Staggered Reps/Duration AFO off Comments EO stationary, wt shift f/b, head turns, EC WBOS only up to 4 sec: CG- Min A cues for even wt distribution more in to L, tends to wt shift more over RLE. Sport Cord 1 Exercise Details Fwd/Bkwd/Lateral stepping (w/ L AFO) Cord/Resistance green Reps/Duration 5x each direction Gait Training Gait Activity 1 Description Gait /s AD and AFO Level of Assistance SBA Distance/Duration 300' PT-OP-R Modalities Start: 03/13/21 14:33 Freq: Status: Active Protocol: Document 08/18/21 10:30 DCW (Rec: 08/18/21 11:15 DCW [id number]) Electric Stimulation Electric Stimulation Taiwanese Stimulation Body Location Left Anterior Tib Duration (Minutes) 8 Intensity 43 Patient Position Sitting Comments 5 on, 5 off toe extension and Dorsiflexion AROM during contraction. Pt able to toe extension and DF with AROM > able to maintain DF without assistance today. Pt DF activiation decreased, but reintroduction of AAROM end feed DF allowed Pt to then DF and maintain without support for several reps. However, muscle began to fatigue at ~7 minutes, but still able to get a contraction. PT-OP-T Assessment and Plan Start: 03/13/21 14:33 Freq: Status: Active Protocol: Document 08/18/21 10:30 DCW (Rec: 08/18/21 11:15 DCW [id number]) Physical Therapy Assessment Goals Three Impairment Pt completes 6MWT with an average speed of 1.91 ft/sec Short Term Goal (STG) Pt to complete 6MWT with an average speed of at least 2.4 ft/sec for a total distance > 864' to show decreased risk of functional decline STG Duration Met Fpc Goal (LTG) Pt to ambulate >1200' during 6 MWT to demonstrate a return to prior level of functional gait LTG Duration 10/14/21 - improving Two Impairment Increased falls risk per Hogan (41/56) and TUG (13.73) scores Short Term Goal (STG) Pt to increase Hogan score by at least 5 points to 46/56 to demonstrate decreased falls risk STG Duration Met Fpc Goal (LTG) Pt to increase Hogan score by at least 5 points to 53/56 to demonstrate decreased falls risk LTG Duration 10/14/20 - improving (52/56) One Impairment Pt does not have an appropriate home exercise program Short Term Goal (STG) Pt to be independent and compliant with an appropriate HEP STG Duration Met Assessment Summary Assessment Pt did well today with her first visit back after vacation, notes she did [place] walking on the beach, did lose her cane, but is feeling comfortable without it. Pt showing good improvement with increased balance challenges. Physical Therapy Plan Frequency and Duration Frequency of Treatment 2x/Week Duration of Treatment Three months Plan of Care Start Date 07/14/21 Plan of Care End Date 10/14/21 Therapeutic Interventions Therapeutic Interventions Aquatic Therapy,Balance Training,Gait Training,Home Exercise Program,Manual Therapy,Neuromuscular Re- education,Patient/Caregiver Education,Self-Care/Home Management,Soft Tissue Mobilization,Therapeutic Exercises Modalities Cold Pack/Ice Massage,Electric Stimulation,Hot Packs Next Visit Focus/Plan Next Note Type Treatment Note Next Visit Plan Continue Hamstring curl TB, ball cone transfer and shuttle balance/ recovery without AFO . POC: increased balance challenges and ball/cone transfers using L UE, STMs L Piriformis as needed.
--- NOTE | 2021-08-20 11:08 | PT.OTN ---
Current Diagnoses Cerebral infarction, unspecified (08/20/21) Muscle weakness (generalized) (08/20/21) Other abnormalities of gait and mobility (08/20/21) Repeated falls (08/20/21) Other symptoms and signs involving the musculoskeletal system (08/20/21) Physical Therapy Treatment Note PT-OP-A Visit Information Start: 03/13/21 14:33 Freq: Status: Active Protocol: Document 08/20/21 10:30 DCW (Rec: 08/20/21 11:08 DCW [id number]) Out-Patient Physical Therapy Visit Information Visit Information Visit Type Treatment Note Visit Start Time 10:30 Visit Stop Time 11:15 Total Visit Minutes 45 Visit Number 36 Number of QA SOFTWARE TEST ENGINEER Visits 0 Evaluation Information Evaluation Date 03/13/21 PT-OP-B Current Condition Start: 03/13/21 14:33 Freq: Status: Active Protocol: Document 03/13/21 12:00 DCW (Rec: 03/13/21 15:08 DCW [id number]) Current Condition History of Current Condition Onset Date 12/16/20 Current Complaints Hemiparesis, weakness, gait difficulty, decreased balance History of Current Condition Pt is a 65 year old female presenting three months s/p thalamic CVA. Pt presented to ED on 12/16/20 with sudden onset of left-sided weakness when waking up early in the AM to go to the bathroom. Pt noticed she could not more her left arm, tried to stand up, and fell over when her left leg was also unable to support her. The day after hospitalization, pt was transferred to [facility] for intensive rehab, notes she underwent 2.5 hours of PT/OT each day. Pt remained there for one months, and was then discharged home on January 13 with [facility], and since that time has been undergoing PT 2x/week and OT 3x/week, and was discharged from both disciplines earlier this week. Pt reports her left arm function is her biggest concern, and has been referred to outpatient OT for this, but also has difficulty with gait and balance. Pt wears an AFO on her left foot due to foot drop, and walks with a SPC. Admits she has had a few falls, but her balance has been a bit better since she left [facility] and has been slightly more stable at home. Treatment Goals Patient/Caregiver Goals I want to get back to normal function. I want to be able to walk independently without the cane, and use my arms like before. Really, I want to be able to live without depending on anyone, I was so independent before. PT-OP-C Subjective Start: 03/13/21 14:33 Freq: Status: Active Protocol: Document 08/20/21 10:30 DCW (Rec: 08/20/21 11:08 DCW [id number]) OP-PT Subjective Patient Comments Patient Comments Pt reports that sometimes she still feels like she needs another cane, but overall has been feeling pretty good with her independence after losing her cane. PT-OP-D Balance Start: 03/13/21 14:33 Freq: Status: Active Protocol: Document 07/14/21 10:30 DCW (Rec: 07/14/21 11:07 DCW [id number]) Balance Tests Hogan Balance Test Hogan Balance Test Score 52/56 Hogan Impairment Rating 1 to 19% Impaired (Score 45-55 ) Single Limb Standing Single Limb- Right 20 seconds Single Limb- Left 3 seconds Hogan Balance Assessment Evaluation Sitting to Standing Ability Independent w/out Hands Unsupported Stance Safely- 2 minutes Sitting Unsupported, Feet on Floor Safely- 2 minutes Standing to Sitting Ability Safely, Minimal Hand Use Transfer Ability Safely, Minimal Hand Use Unsupported Stance- Eyes Closed Safely, 10 seconds Unsupported Stance- Eyes Open Independent, 1 minute Reaching Forward Standing Safely, 5 inches Pick- Up Object From Floor Independent/Safe Look Behind Shoulder - Standing Shifts Weight Well Turning 360 Degrees Turns Bilateral, < 4 secs Unsupported Stance, Alternating Feet on (I)- 8 Steps in 20 secs Stair Unsupported Tandem Stance Holds Tandem- 30 seconds Unilateral Leg Stance Lifts Leg/Holds > 3 secs Total Score Hogan Total Score (out of 56 points) 52 Hogan Impairment Rating 1 to 19% Impaired (Score 45-55 ) PT-OP-E Functional Tests Start: 03/13/21 14:33 Freq: Status: Active Protocol: Document 07/14/21 10:30 DCW (Rec: 07/14/21 11:07 DCW [id number]) Functional Tests 6 Minute Walk Test Distance 989' Device Used SPC Comments 2.75 ft/sec Timed Up and Go (TUG) Score 11.31 /s AD Comments 3-trial average (11.56,11.21 , 11.17) TUG Impairment Rating 1 to <20% Impaired (Score 11) PT-OP-M Strength Start: 03/13/21 14:33 Freq: Status: Active Protocol: Document 07/14/21 10:30 DCW (Rec: 07/14/21 11:07 DCW [id number]) Hip Strength Hip Manual Muscle Testing Left Flexion (L2) 4- Good- Abduction 3+ Fair+ Adduction 4+ Good+ External Rotation 4- Good- Internal Rotation 3 Fair Knee Strength Knee Manual Muscle Testing Left Flexion (S2) 3- Fair- Extension (L3) 4+ Good+ Ankle/Foot Strength Ankle and Foot Manual Muscle Testing Left Dorsiflexion (L4) 2 Poor Plantarflexion (S1) 3 Fair PT-OP-Q Treatments Start: 03/13/21 14:33 Freq: Status: Active Protocol: Document 08/20/21 10:30 DCW (Rec: 08/20/21 11:08 DCW [id number]) Cardio Equipment Recumbent Stepper (Sci-Fit) Duration (Minutes) 5 Resistance 3 Seat Position 6 Gym Equipment Shuttle Recovery Unilateral Squats Details L (no AFO) Resistance 25# Shuttle Recovery Platform Stable Reps/Time 3x10- cued slow con/ eccentric control, no hyperextension Shuttle Balance Red Details WBOS (EO/EC), Staggered, Lat weight shift Reps/Duration AFO off Gait Training Gait Activity 1 Description Gait /s AD and AFO Level of Assistance SBA Distance/Duration 300' PT-OP-R Modalities Start: 03/13/21 14:33 Freq: Status: Active Protocol: Document 08/20/21 10:30 DCW (Rec: 08/20/21 11:08 DCW [id number]) Electric Stimulation Electric Stimulation Taiwanese Stimulation Body Location Left Anterior Tib Duration (Minutes) 10 Intensity 42 Patient Position Sitting Comments 5 on, 5 off toe extension and Dorsiflexion AROM during contraction. Pt able to toe extension and DF with AROM > able to maintain DF without assistance today. Pt DF activiation decreased, but reintroduction of AAROM end feed DF allowed Pt to then DF and maintain without support for several reps. However, muscle began to fatigue at ~7 minutes, but still able to get a contraction. PT-OP-T Assessment and Plan Start: 03/13/21 14:33 Freq: Status: Active Protocol: Document 08/20/21 10:30 DCW (Rec: 08/20/21 11:08 DCW [id number]) Physical Therapy Assessment Goals Three Impairment Pt completes 6MWT with an average speed of 1.91 ft/sec Short Term Goal (STG) Pt to complete 6MWT with an average speed of at least 2.4 ft/sec for a total distance > 864' to show decreased risk of functional decline STG Duration Met Purchase Request Editor Goal (LTG) Pt to ambulate >1200' during 6 MWT to demonstrate a return to prior level of functional gait LTG Duration 10/14/21 - improving Two Impairment Increased falls risk per Hogan (41/56) and TUG (13.73) scores Short Term Goal (STG) Pt to increase Hogan score by at least 5 points to 46/56 to demonstrate decreased falls risk STG Duration Met Snf Goal (LTG) Pt to increase Hogan score by at least 5 points to 53/56 to demonstrate decreased falls risk LTG Duration 10/14/20 - improving (52/56) One Impairment Pt does not have an appropriate home exercise program Short Term Goal (STG) Pt to be independent and compliant with an appropriate HEP STG Duration Met Assessment Summary Assessment Pt feeling more secure with AD -free gait, had a bit more difficulty today attempting lateral weight shifting on the Shuttle Balance. Physical Therapy Plan Frequency and Duration Frequency of Treatment 2x/Week Duration of Treatment Three months Plan of Care Start Date 07/14/21 Plan of Care End Date 10/14/21 Therapeutic Interventions Therapeutic Interventions Aquatic Therapy,Balance Training,Gait Training,Home Exercise Program,Manual Therapy,Neuromuscular Re- education,Patient/Caregiver Education,Self-Care/Home Management,Soft Tissue Mobilization,Therapeutic Exercises Modalities Cold Pack/Ice Massage,Electric Stimulation,Hot Packs Next Visit Focus/Plan Next Note Type Treatment Note Next Visit Plan Continue Hamstring curl TB, ball cone transfer and shuttle balance/ recovery without AFO . POC: increased balance challenges and ball/cone transfers using L UE, STMs L Piriformis as needed.
--- NOTE | 2021-08-27 13:52 | PT.OTN ---
Current Diagnoses Cerebral infarction, unspecified (08/27/21) Muscle weakness (generalized) (08/27/21) Other abnormalities of gait and mobility (08/27/21) Repeated falls (08/27/21) Other symptoms and signs involving the musculoskeletal system (08/27/21) Physical Therapy Treatment Note PT-OP-A Visit Information Start: 03/13/21 14:33 Freq: Status: Active Protocol: Document 08/27/21 13:06 SP (Rec: 08/27/21 14:06 SP [id number]) Out-Patient Physical Therapy Visit Information Visit Information Visit Type Treatment Note Visit Start Time 13:06 Visit Stop Time 13:52 Total Visit Minutes 46 Visit Number 37 Number of CHIEF WHARFINGER Visits 1 Evaluation Information Evaluation Date 03/13/21 PT-OP-B Current Condition Start: 03/13/21 14:33 Freq: Status: Active Protocol: Document 03/13/21 12:00 DCW (Rec: 03/13/21 15:08 DCW [id number]) Current Condition History of Current Condition Onset Date 12/16/20 Current Complaints Hemiparesis, weakness, gait difficulty, decreased balance History of Current Condition Pt is a 65 year old female presenting three months s/p thalamic CVA. Pt presented to ED on 12/16/20 with sudden onset of left-sided weakness when waking up early in the AM to go to the bathroom. Pt noticed she could not more her left arm, tried to stand up, and fell over when her left leg was also unable to support her. The day after hospitalization, pt was transferred to [facility] for intensive rehab, notes she underwent 2.5 hours of PT/OT each day. Pt remained there for one months, and was then discharged home on January 13 with home health, and since that time has been undergoing PT 2x/week and OT 3x/week, and was discharged from both disciplines earlier this week. Pt reports her left arm function is her biggest concern, and has been referred to outpatient OT for this, but also has difficulty with gait and balance. Pt wears an AFO on her left foot due to foot drop, and walks with a SPC. Admits she has had a few falls, but her balance has been a bit better since she left [facility] and has been slightly more stable at home. Treatment Goals Patient/Caregiver Goals I want to get back to normal function. I want to be able to walk independently without the cane, and use my arms like before. Really, I want to be able to live without depending on anyone, I was so independent before. PT-OP-C Subjective Start: 03/13/21 14:33 Freq: Status: Active Protocol: Document 08/27/21 13:06 SP (Rec: 08/27/21 14:06 SP [id number]) OP-PT Subjective Patient Comments Patient Comments Pt arrived without SPC, she reported lost her cane in [place] couple weeks ago when propped against something and forgot about it and left. She hasn't and not sure want to replace it, feels her balance is improving and not thinks has a need for it, I just occasionally use it for little balance. Pt requested would like to reduce PT 1x/wk, she sees PT next tx, will assess change in POC if feels progressed well enough to low to 1x/wk. PT-OP-D Balance Start: 03/13/21 14:33 Freq: Status: Active Protocol: Document 07/14/21 10:30 DCW (Rec: 07/14/21 11:07 DCW [id number]) Balance Tests Hogan Balance Test Hogan Balance Test Score 52/56 Hogan Impairment Rating 1 to 19% Impaired (Score 45-55 ) Single Limb Standing Single Limb- Right 20 seconds Single Limb- Left 3 seconds Hogan Balance Assessment Evaluation Sitting to Standing Ability Independent w/out Hands Unsupported Stance Safely- 2 minutes Sitting Unsupported, Feet on Floor Safely- 2 minutes Standing to Sitting Ability Safely, Minimal Hand Use Transfer Ability Safely, Minimal Hand Use Unsupported Stance- Eyes Closed Safely, 10 seconds Unsupported Stance- Eyes Open Independent, 1 minute Reaching Forward Standing Safely, 5 inches Pick- Up Object From Floor Independent/Safe Look Behind Shoulder - Standing Shifts Weight Well Turning 360 Degrees Turns Bilateral, < 4 secs Unsupported Stance, Alternating Feet on (I)- 8 Steps in 20 secs Stair Unsupported Tandem Stance Holds Tandem- 30 seconds Unilateral Leg Stance Lifts Leg/Holds > 3 secs Total Score Hogan Total Score (out of 56 points) 52 Hogan Impairment Rating 1 to 19% Impaired (Score 45-55 ) PT-OP-E Functional Tests Start: 03/13/21 14:33 Freq: Status: Active Protocol: Document 07/14/21 10:30 DCW (Rec: 07/14/21 11:07 DCW [id number]) Functional Tests 6 Minute Walk Test Distance 989' Device Used SPC Comments 2.75 ft/sec Timed Up and Go (TUG) Score 11.31 /s AD Comments 3-trial average (11.56,11.21 , 11.17) TUG Impairment Rating 1 to <20% Impaired (Score 11) PT-OP-M Strength Start: 03/13/21 14:33 Freq: Status: Active Protocol: Document 07/14/21 10:30 DCW (Rec: 07/14/21 11:07 DCW [id number]) Hip Strength Hip Manual Muscle Testing Left Flexion (L2) 4- Good- Abduction 3+ Fair+ Adduction 4+ Good+ External Rotation 4- Good- Internal Rotation 3 Fair Knee Strength Knee Manual Muscle Testing Left Flexion (S2) 3- Fair- Extension (L3) 4+ Good+ Ankle/Foot Strength Ankle and Foot Manual Muscle Testing Left Dorsiflexion (L4) 2 Poor Plantarflexion (S1) 3 Fair PT-OP-Q Treatments Start: 03/13/21 14:33 Freq: Status: Active Protocol: Document 08/27/21 13:06 SP (Rec: 08/27/21 14:06 SP [id number]) Cardio Equipment Recumbent Elliptical (BiodInfomous) Duration (Minutes) 8 Resistance 4 Seat Position closest Other 35-40 RPMs Gym Equipment Shuttle Recovery Unilateral Squats Details L (no AFO), RLE 37# alternating Resistance 25# Shuttle Recovery Platform Stable Reps/Time 3x20- cued slow con/ eccentric control, no hyperextension, heel press, DF Therapeutic Exercises Sitting Exercises Knee flexion Sitting Exercise Name reviewed HEP. with slow eccentric return to start position, R foot on box Side left Resistance L1 TB, (Give #2 TB when get more in clinic) Equipment Used 18 chair sitting tall, femur supported Reps/Minutes discussed continue at home Comments cues for slow conc/ecc contraction Gait Training Gait Activity gait no AD Device Used 0 Level of Assistance S Surface firm Distance/Duration 706 Treatment Focus see comments Comments 6MWT: 706ft in 6 min with cues quality L knee flexion during swing phase, L soft knee awareness w/ quad facilitation during midstance to toe off phase, L UE swing with RLE advancement. Provided 1/4 heel lift under L shoe sole noted decreased hyperextension noted. PT-OP-R Modalities Start: 03/13/21 14:33 Freq: Status: Active Protocol: Document 08/27/21 13:06 SP (Rec: 08/27/21 14:06 SP [id number]) Electric Stimulation Electric Stimulation Dominican Stimulation Body Location Left Anterior Tib Duration (Minutes) 10 Intensity 42 Patient Position Sitting Comments 5 on, 5 off toe extension and Dorsiflexion AROM during Tibialis Anterior contraction. Pt able to toe extension and DF with AROM > able to maintain DF without assistance today. PT-OP-T Assessment and Plan Start: 03/13/21 14:33 Freq: Status: Active Protocol: Document 08/27/21 13:06 SP (Rec: 08/27/21 14:06 SP [id number]) Physical Therapy Assessment Goals Three Impairment Pt completes 6MWT with an average speed of 1.91 ft/sec Short Term Goal (STG) Pt to complete 6MWT with an average speed of at least 2.4 ft/sec for a total distance > 864' to show decreased risk of functional decline STG Duration Met Carpet Cutter Goal (LTG) Pt to ambulate >1200' during 6 MWT to demonstrate a return to prior level of functional gait 08/27/21: progressing 706 ft in 6 min, no AD with AFO donned. LTG Duration 10/14/21 - improving Two Impairment Increased falls risk per Hogan (41/56) and TUG (13.73) scores Short Term Goal (STG) Pt to increase Hogan score by at least 5 points to 46/56 to demonstrate decreased falls risk STG Duration Met Shelter Goal (LTG) Pt to increase Hogan score by at least 5 points to 53/56 to demonstrate decreased falls risk LTG Duration 10/14/20 - improving (52/56) One Impairment Pt does not have an appropriate home exercise program Short Term Goal (STG) Pt to be independent and compliant with an appropriate HEP STG Duration Met Assessment Summary Assessment Pt improved gait quality with 1/4 heel lift under sole of shoe and cues for slower pacing quality gait phases: LLE knee flexion during swing through with decrease hip hike / circumduction noted, soft L knee during midstance into toe off. Cued for awareness of LLE arm swing. Pt Physical Therapy Plan Frequency and Duration Frequency of Treatment 2x/Week Duration of Treatment Three months Plan of Care Start Date 07/14/21 Plan of Care End Date 10/14/21 Therapeutic Interventions Therapeutic Interventions Aquatic Therapy,Balance Training,Gait Training,Home Exercise Program,Manual Therapy,Neuromuscular Re- education,Patient/Caregiver Education,Self-Care/Home Management,Soft Tissue Mobilization,Therapeutic Exercises Modalities Cold Pack/Ice Massage,Electric Stimulation,Hot Packs Next Visit Focus/Plan Next Note Type Treatment Note Next Visit Plan Recheck HEP: Hamstring curl TB , ball cone transfer and shuttle balance/ recovery without AFO. Pt requested decrease PT to 1x /week. POC: increased balance challenges and ball/cone transfers using L UE, STMs L Piriformis as needed.
--- NOTE | 2021-08-31 10:57 | PT-OP ANOTE ---
Pt no-showed her appointment 08/31/21. Therapist phoned her, she was very apologetic, thought her appointment was tomorrow. New appointment was scheduled for tomorrow.
--- NOTE | 2021-09-01 09:06 | PT.OTN ---
Current Diagnoses Cerebral infarction, unspecified (09/01/21) Muscle weakness (generalized) (09/01/21) Other abnormalities of gait and mobility (09/01/21) Repeated falls (09/01/21) Other symptoms and signs involving the musculoskeletal system (09/01/21) Physical Therapy Treatment Note PT-OP-A Visit Information Start: 03/13/21 14:33 Freq: Status: Active Protocol: Document 09/01/21 08:15 SP (Rec: 09/01/21 09:05 SP [id number]) Out-Patient Physical Therapy Visit Information Visit Information Visit Type Treatment Note Visit Start Time 08:15 Visit Stop Time 09:06 Visit Number 45 Number of VICE PRESIDENT CORPORATE COMMUNICATIONS Visits 2 Evaluation Information Evaluation Date 03/13/21 PT-OP-B Current Condition Start: 03/13/21 14:33 Freq: Status: Active Protocol: Document 03/13/21 12:00 DCW (Rec: 03/13/21 15:08 DCW [id number]) Current Condition History of Current Condition Onset Date 12/16/20 Current Complaints Hemiparesis, weakness, gait difficulty, decreased balance History of Current Condition Pt is a 65 year old female presenting three months s/p thalamic CVA. Pt presented to ED on 12/16/20 with sudden onset of left-sided weakness when waking up early in the AM to go to the bathroom. Pt noticed she could not more her left arm, tried to stand up, and fell over when her left leg was also unable to support her. The day after hospitalization, pt was transferred to [facility] for intensive rehab, notes she underwent 2.5 hours of PT/OT each day. Pt remained there for one months, and was then discharged home on January 13 with home health, and since that time has been undergoing PT 2x/week and OT 3x/week, and was discharged from both disciplines earlier this week. Pt reports her left arm function is her biggest concern, and has been referred to outpatient OT for this, but also has difficulty with gait and balance. Pt wears an AFO on her left foot due to foot drop, and walks with a SPC. Admits she has had a few falls, but her balance has been a bit better since she left [facility] and has been slightly more stable at home. Treatment Goals Patient/Caregiver Goals I want to get back to normal function. I want to be able to walk independently without the cane, and use my arms like before. Really, I want to be able to live without depending on anyone, I was so independent before. PT-OP-C Subjective Start: 03/13/21 14:33 Freq: Status: Active Protocol: Document 09/01/21 08:15 SP (Rec: 09/01/21 09:05 SP [id number]) OP-PT Subjective Patient Comments Patient Comments Pt arrives without AD, decrease knee hyperextension noted. Pt stated the 1/4 heel lift in L shoe under shoe insole but top of AFO, VICE PRESIDENT CORPORATE COMMUNICATIONS placed in shoe, as helped with balance support and L knee not hyperextending as much. Pt requesting to decrease to 1x/wk, do HEP on own and come in for PT for more challenging balance and gait. PT-OP-D Balance Start: 03/13/21 14:33 Freq: Status: Active Protocol: Document 07/14/21 10:30 DCW (Rec: 07/14/21 11:07 DCW [id number]) Balance Tests Hogan Balance Test Hogan Balance Test Score 52/56 Hogan Impairment Rating 1 to 19% Impaired (Score 45-55 ) Single Limb Standing Single Limb- Right 20 seconds Single Limb- Left 3 seconds Hogan Balance Assessment Evaluation Sitting to Standing Ability Independent w/out Hands Unsupported Stance Safely- 2 minutes Sitting Unsupported, Feet on Floor Safely- 2 minutes Standing to Sitting Ability Safely, Minimal Hand Use Transfer Ability Safely, Minimal Hand Use Unsupported Stance- Eyes Closed Safely, 10 seconds Unsupported Stance- Eyes Open Independent, 1 minute Reaching Forward Standing Safely, 5 inches Pick- Up Object From Floor Independent/Safe Look Behind Shoulder - Standing Shifts Weight Well Turning 360 Degrees Turns Bilateral, < 4 secs Unsupported Stance, Alternating Feet on (I)- 8 Steps in 20 secs Stair Unsupported Tandem Stance Holds Tandem- 30 seconds Unilateral Leg Stance Lifts Leg/Holds > 3 secs Total Score Hogan Total Score (out of 56 points) 52 Hogan Impairment Rating 1 to 19% Impaired (Score 45-55 ) PT-OP-E Functional Tests Start: 03/13/21 14:33 Freq: Status: Active Protocol: Document 07/14/21 10:30 DCW (Rec: 07/14/21 11:07 DCW [id number]) Functional Tests 6 Minute Walk Test Distance 989' Device Used SPC Comments 2.75 ft/sec Timed Up and Go (TUG) Score 11.31 /s AD Comments 3-trial average (11.56,11.21 , 11.17) TUG Impairment Rating 1 to <20% Impaired (Score 11) PT-OP-M Strength Start: 03/13/21 14:33 Freq: Status: Active Protocol: Document 07/14/21 10:30 DCW (Rec: 07/14/21 11:07 DCW [id number]) Hip Strength Hip Manual Muscle Testing Left Flexion (L2) 4- Good- Abduction 3+ Fair+ Adduction 4+ Good+ External Rotation 4- Good- Internal Rotation 3 Fair Knee Strength Knee Manual Muscle Testing Left Flexion (S2) 3- Fair- Extension (L3) 4+ Good+ Ankle/Foot Strength Ankle and Foot Manual Muscle Testing Left Dorsiflexion (L4) 2 Poor Plantarflexion (S1) 3 Fair PT-OP-Q Treatments Start: 03/13/21 14:33 Freq: Status: Active Protocol: Document 09/01/21 08:15 SP (Rec: 09/01/21 09:05 SP [id number]) Cardio Equipment Recumbent Elliptical ([employer]) Duration (Minutes) 8 Resistance 4 Seat Position closest (AFO doffed, small cushion behind back) Other 35-40 RPMs, LEs only, 513 steps total Gym Equipment Shuttle Recovery Unilateral Squats Details L (no AFO), RLE 37# alternating Resistance 25# Shuttle Recovery Platform Stable Reps/Time 3x20- cued slow con/ eccentric control, no hyperextension, heel press, DF Shuttle Balance Red Details WBOS (EO/EC), Staggered, Lat weight shift Reps/Duration AFO off Comments WBOS: head turns, vertical, EC 12 sec NBOS: head turns, vertical, EC 4 sec Stagger: stationary bal. CGA- Min CUed wt shift into LLE and soft L knee Gait Training Gait Activity 2 Description Amb using L UE to hold water cup w/ 6 hurdles btwn laps Device Used none Level of Assistance SBA Distance/Duration 510ft (3 laps) Treatment Focus balance w/ L knee flexion advancement, foot clearance, core fac for eccland Comments Cued tall posture core fac, level pelvis, L knee flexion and eccentric heel stike during advancement to allow improved normalizing gait phases and balance. Pt dripped water x3 in cup carries LUE improved with cues. PT-OP-R Modalities Start: 03/13/21 14:33 Freq: Status: Active Protocol: Document 09/01/21 08:15 SP (Rec: 09/01/21 09:05 SP [id number]) Electric Stimulation Electric Stimulation Croatian Stimulation Body Location Left Anterior Tib Duration (Minutes) 10 Intensity 33 Patient Position Sitting Comments 5 on, 5 off toe extension and Dorsiflexion AROM during Tibialis Anterior contraction. Pt able to toe extension and DF with AROM > able to maintain DF without assistance today. PT-OP-T Assessment and Plan Start: 03/13/21 14:33 Freq: Status: Active Protocol: Document 09/01/21 08:15 SP (Rec: 09/01/21 09:05 SP [id number]) Physical Therapy Assessment Goals Three Impairment Pt completes 6MWT with an average speed of 1.91 ft/sec Short Term Goal (STG) Pt to complete 6MWT with an average speed of at least 2.4 ft/sec for a total distance > 864' to show decreased risk of functional decline STG Duration Met Longterm Goal (LTG) Pt to ambulate >1200' during 6 MWT to demonstrate a return to prior level of functional gait 08/27/21: progressing 706 ft in 6 min, no AD with AFO donned. LTG Duration 10/14/21 - improving Two Impairment Increased falls risk per Hogan (41/56) and TUG (13.73) scores Short Term Goal (STG) Pt to increase Hogan score by at least 5 points to 46/56 to demonstrate decreased falls risk STG Duration Met Longterm Goal (LTG) Pt to increase Hogan score by at least 5 points to 53/56 to demonstrate decreased falls risk LTG Duration 10/14/20 - improving (52/56) One Impairment Pt does not have an appropriate home exercise program Short Term Goal (STG) Pt to be independent and compliant with an appropriate HEP STG Duration Met Assessment Summary Assessment Pt improved dynamic gait able to progress 3 laps fo 170 ft while carrying cup water in L UE, improved stability and eccentric LLE heel strike with cues for slower pacing and core facilitation. Only spilled little x3 during total distance. Incorporated sherine stepping w/ cup water during distance gait CGA- 10%A with cues for L knee flexion then slow eccentric heel strike once advanced over sherine with improved Min> CGA. Physical Therapy Plan Frequency and Duration Frequency of Treatment 2x/Week Duration of Treatment Three months Plan of Care Start Date 07/14/21 Plan of Care End Date 10/14/21 Therapeutic Interventions Therapeutic Interventions Aquatic Therapy,Balance Training,Gait Training,Home Exercise Program,Manual Therapy,Neuromuscular Re- education,Patient/Caregiver Education,Self-Care/Home Management,Soft Tissue Mobilization,Therapeutic Exercises Modalities Cold Pack/Ice Massage,Electric Stimulation,Hot Packs Next Visit Focus/Plan Next Note Type Treatment Note Next Visit Plan Recheck HEP: Hamstring curl TB , ball cone transfer and shuttle balance/ recovery without AFO. Pt requested decrease PT to 1x /week. POC: increased balance challenges and ball/cone transfers using L UE, STMs L Piriformis as needed.
--- NOTE | 2021-09-07 11:11 | PT.OTN ---
Current Diagnoses Cerebral infarction, unspecified (09/07/21) Muscle weakness (generalized) (09/07/21) Other abnormalities of gait and mobility (09/07/21) Repeated falls (09/07/21) Other symptoms and signs involving the musculoskeletal system (09/07/21) Physical Therapy Treatment Note PT-OP-A Visit Information Start: 03/13/21 14:33 Freq: Status: Active Protocol: Document 09/07/21 10:30 DCW (Rec: 09/07/21 11:09 DCW [id number]) Out-Patient Physical Therapy Visit Information Visit Information Visit Type Treatment Note Visit Start Time 10:30 Visit Stop Time 11:15 Total Visit Minutes 45 Visit Number 39 Number of SUPERVISOR ASSEMBLY ROOM Visits 0 Evaluation Information Evaluation Date 03/13/21 PT-OP-B Current Condition Start: 03/13/21 14:33 Freq: Status: Active Protocol: Document 03/13/21 12:00 DCW (Rec: 03/13/21 15:08 DCW [id number]) Current Condition History of Current Condition Onset Date 12/16/20 Current Complaints Hemiparesis, weakness, gait difficulty, decreased balance History of Current Condition Pt is a 65 year old female presenting three months s/p thalamic CVA. Pt presented to ED on 12/16/20 with sudden onset of left-sided weakness when waking up early in the AM to go to the bathroom. Pt noticed she could not more her left arm, tried to stand up, and fell over when her left leg was also unable to support her. The day after hospitalization, pt was transferred to [facility] for intensive rehab, notes she underwent 2.5 hours of PT/OT each day. Pt remained there for one months, and was then discharged home on January 13 with [facility], and since that time has been undergoing PT 2x/week and OT 3x/week, and was discharged from both disciplines earlier this week. Pt reports her left arm function is her biggest concern, and has been referred to outpatient OT for this, but also has difficulty with gait and balance. Pt wears an AFO on her left foot due to foot drop, and walks with a SPC. Admits she has had a few falls, but her balance has been a bit better since she left [facility] and has been slightly more stable at home. Treatment Goals Patient/Caregiver Goals I want to get back to normal function. I want to be able to walk independently without the cane, and use my arms like before. Really, I want to be able to live without depending on anyone, I was so independent before. PT-OP-C Subjective Start: 03/13/21 14:33 Freq: Status: Active Protocol: Document 09/07/21 10:30 DCW (Rec: 09/07/21 11:09 DCW [id number]) OP-PT Subjective Patient Comments Patient Comments Pt reports that she has borrowed a cane from a friend, admits she has been feeling more like she should be using one for stability. PT-OP-D Balance Start: 03/13/21 14:33 Freq: Status: Active Protocol: Document 07/14/21 10:30 DCW (Rec: 07/14/21 11:07 DCW [id number]) Balance Tests Hogan Balance Test Hogan Balance Test Score 52/56 Hogan Impairment Rating 1 to 19% Impaired (Score 45-55 ) Single Limb Standing Single Limb- Right 20 seconds Single Limb- Left 3 seconds Hogan Balance Assessment Evaluation Sitting to Standing Ability Independent w/out Hands Unsupported Stance Safely- 2 minutes Sitting Unsupported, Feet on Floor Safely- 2 minutes Standing to Sitting Ability Safely, Minimal Hand Use Transfer Ability Safely, Minimal Hand Use Unsupported Stance- Eyes Closed Safely, 10 seconds Unsupported Stance- Eyes Open Independent, 1 minute Reaching Forward Standing Safely, 5 inches Pick- Up Object From Floor Independent/Safe Look Behind Shoulder - Standing Shifts Weight Well Turning 360 Degrees Turns Bilateral, < 4 secs Unsupported Stance, Alternating Feet on (I)- 8 Steps in 20 secs Stair Unsupported Tandem Stance Holds Tandem- 30 seconds Unilateral Leg Stance Lifts Leg/Holds > 3 secs Total Score Hogan Total Score (out of 56 points) 52 Hogan Impairment Rating 1 to 19% Impaired (Score 45-55 ) PT-OP-E Functional Tests Start: 03/13/21 14:33 Freq: Status: Active Protocol: Document 07/14/21 10:30 DCW (Rec: 07/14/21 11:07 DCW [id number]) Functional Tests 6 Minute Walk Test Distance 989' Device Used SPC Comments 2.75 ft/sec Timed Up and Go (TUG) Score 11.31 /s AD Comments 3-trial average (11.56,11.21 , 11.17) TUG Impairment Rating 1 to <20% Impaired (Score 11) PT-OP-M Strength Start: 03/13/21 14:33 Freq: Status: Active Protocol: Document 07/14/21 10:30 DCW (Rec: 07/14/21 11:07 DCW [id number]) Hip Strength Hip Manual Muscle Testing Left Flexion (L2) 4- Good- Abduction 3+ Fair+ Adduction 4+ Good+ External Rotation 4- Good- Internal Rotation 3 Fair Knee Strength Knee Manual Muscle Testing Left Flexion (S2) 3- Fair- Extension (L3) 4+ Good+ Ankle/Foot Strength Ankle and Foot Manual Muscle Testing Left Dorsiflexion (L4) 2 Poor Plantarflexion (S1) 3 Fair PT-OP-Q Treatments Start: 03/13/21 14:33 Freq: Status: Active Protocol: Document 09/07/21 10:30 DCW (Rec: 09/07/21 11:09 DCW [id number]) Cardio Equipment Recumbent Elliptical ([employer]) Duration (Minutes) 5 Resistance 5 Seat Position closest Other 35-40 RPMs Gym Equipment Shuttle Balance Red Details WBOS Comments HOMERO Storm Gait Training Gait Activity 3 Description Pre-gait arm swing Comments Pre-gait weight-shifting in // bars, use PVC for arm swing gait no AD Device Used None Distance/Duration 510 Comments Focus on L arm swing, first PROM/AAROM, then AROM PT-OP-R Modalities Start: 03/13/21 14:33 Freq: Status: Active Protocol: Document 09/07/21 10:30 DCW (Rec: 09/07/21 11:09 DCW [id number]) Electric Stimulation Electric Stimulation Ivorian Stimulation Body Location Left Anterior Tib Duration (Minutes) 10 Intensity 46 Patient Position Sitting Comments 5 on, 5 off toe extension and Dorsiflexion AROM during Tibialis Anterior contraction. Pt able to toe extension and DF with AROM > able to maintain DF without assistance today. PT-OP-T Assessment and Plan Start: 03/13/21 14:33 Freq: Status: Active Protocol: Document 09/07/21 10:30 DCW (Rec: 09/07/21 11:11 DCW [id number]) Physical Therapy Assessment Impairments Impairments Activity Tolerance,Balance, Functional Activities, Functional Mobility,Gait,ROM, Soft Tissue Mobility,Strength, Transfers Goals Three Impairment Pt completes 6MWT with an average speed of 1.91 ft/sec Short Term Goal (STG) Pt to complete 6MWT with an average speed of at least 2.4 ft/sec for a total distance > 864' to show decreased risk of functional decline STG Duration Met Care Home Goal (LTG) Pt to ambulate >1200' during 6 MWT to demonstrate a return to prior level of functional gait 08/27/21: progressing 706 ft in 6 min, no AD with AFO donned. LTG Duration 10/14/21 - improving Two Impairment Increased falls risk per Hogan (41/56) and TUG (13.73) scores Short Term Goal (STG) Pt to increase Hogan score by at least 5 points to 46/56 to demonstrate decreased falls risk STG Duration Met Lead Nuclear Medicine Technologist Goal (LTG) Pt to increase Hogan score by at least 5 points to 53/56 to demonstrate decreased falls risk LTG Duration 10/14/20 - improving (52/56) One Impairment Pt does not have an appropriate home exercise program Short Term Goal (STG) Pt to be independent and compliant with an appropriate HEP STG Duration Met Assessment Summary Assessment Pt making some small improvements with arm swing during gait, still must focus on intentional movement, some difficulty sequencing, but improving. Also increased UE movement with balloon volley, both with speed and accuracy. Physical Therapy Plan Frequency and Duration Frequency of Treatment 2x/Week Duration of Treatment Three months Plan of Care Start Date 07/14/21 Plan of Care End Date 10/14/21 Therapeutic Interventions Therapeutic Interventions Aquatic Therapy,Balance Training,Gait Training,Home Exercise Program,Manual Therapy,Neuromuscular Re- education,Patient/Caregiver Education,Self-Care/Home Management,Soft Tissue Mobilization,Therapeutic Exercises Modalities Cold Pack/Ice Massage,Electric Stimulation,Hot Packs Next Visit Focus/Plan Next Note Type Treatment Note Next Visit Plan Recheck HEP: Hamstring curl TB , ball cone transfer and shuttle balance/ recovery without AFO. Pt requested decrease PT to 1x /week. POC: increased balance challenges and ball/cone transfers using L UE, STMs L Piriformis as needed.
--- NOTE | 2021-09-10 11:15 | PT.OTN ---
Current Diagnoses Cerebral infarction, unspecified (09/10/21) Muscle weakness (generalized) (09/10/21) Other abnormalities of gait and mobility (09/10/21) Repeated falls (09/10/21) Other symptoms and signs involving the musculoskeletal system (09/10/21) Physical Therapy Treatment Note PT-OP-A Visit Information Start: 03/13/21 14:33 Freq: Status: Active Protocol: Document 09/10/21 10:30 DCW (Rec: 09/10/21 11:14 DCW [id number]) Out-Patient Physical Therapy Visit Information Visit Information Visit Type Treatment Note Visit Start Time 10:30 Visit Stop Time 11:15 Total Visit Minutes 45 Visit Number 40 Number of AIR CONDITIONING MANAGER Visits 0 Evaluation Information Evaluation Date 03/13/21 PT-OP-B Current Condition Start: 03/13/21 14:33 Freq: Status: Active Protocol: Document 03/13/21 12:00 DCW (Rec: 03/13/21 15:08 DCW [id number]) Current Condition History of Current Condition Onset Date 12/16/20 Current Complaints Hemiparesis, weakness, gait difficulty, decreased balance History of Current Condition Pt is a 65 year old female presenting three months s/p thalamic CVA. Pt presented to ED on 12/16/20 with sudden onset of left-sided weakness when waking up early in the AM to go to the bathroom. Pt noticed she could not more her left arm, tried to stand up, and fell over when her left leg was also unable to support her. The day after hospitalization, pt was transferred to [facility] for intensive rehab, notes she underwent 2.5 hours of PT/OT each day. Pt remained there for one months, and was then discharged home on January 13 with [facility], and since that time has been undergoing PT 2x/week and OT 3x/week, and was discharged from both disciplines earlier this week. Pt reports her left arm function is her biggest concern, and has been referred to outpatient OT for this, but also has difficulty with gait and balance. Pt wears an AFO on her left foot due to foot drop, and walks with a SPC. Admits she has had a few falls, but her balance has been a bit better since she left [facility] and has been slightly more stable at home. Treatment Goals Patient/Caregiver Goals I want to get back to normal function. I want to be able to walk independently without the cane, and use my arms like before. Really, I want to be able to live without depending on anyone, I was so independent before. PT-OP-C Subjective Start: 03/13/21 14:33 Freq: Status: Active Protocol: Document 09/10/21 10:30 DCW (Rec: 09/10/21 11:14 DCW [id number]) OP-PT Subjective Patient Comments Patient Comments I never thought that I would have to work so hard just to swing my arm while walking. PT-OP-D Balance Start: 03/13/21 14:33 Freq: Status: Active Protocol: Document 07/14/21 10:30 DCW (Rec: 07/14/21 11:07 DCW [id number]) Balance Tests Hogan Balance Test Hogan Balance Test Score 52/56 Hogan Impairment Rating 1 to 19% Impaired (Score 45-55 ) Single Limb Standing Single Limb- Right 20 seconds Single Limb- Left 3 seconds Hogan Balance Assessment Evaluation Sitting to Standing Ability Independent w/out Hands Unsupported Stance Safely- 2 minutes Sitting Unsupported, Feet on Floor Safely- 2 minutes Standing to Sitting Ability Safely, Minimal Hand Use Transfer Ability Safely, Minimal Hand Use Unsupported Stance- Eyes Closed Safely, 10 seconds Unsupported Stance- Eyes Open Independent, 1 minute Reaching Forward Standing Safely, 5 inches Pick- Up Object From Floor Independent/Safe Look Behind Shoulder - Standing Shifts Weight Well Turning 360 Degrees Turns Bilateral, < 4 secs Unsupported Stance, Alternating Feet on (I)- 8 Steps in 20 secs Stair Unsupported Tandem Stance Holds Tandem- 30 seconds Unilateral Leg Stance Lifts Leg/Holds > 3 secs Total Score Hogan Total Score (out of 56 points) 52 Hogan Impairment Rating 1 to 19% Impaired (Score 45-55 ) PT-OP-E Functional Tests Start: 03/13/21 14:33 Freq: Status: Active Protocol: Document 07/14/21 10:30 DCW (Rec: 07/14/21 11:07 DCW [id number]) Functional Tests 6 Minute Walk Test Distance 989' Device Used SPC Comments 2.75 ft/sec Timed Up and Go (TUG) Score 11.31 /s AD Comments 3-trial average (11.56,11.21 , 11.17) TUG Impairment Rating 1 to <20% Impaired (Score 11) PT-OP-M Strength Start: 03/13/21 14:33 Freq: Status: Active Protocol: Document 07/14/21 10:30 DCW (Rec: 07/14/21 11:07 DCW [id number]) Hip Strength Hip Manual Muscle Testing Left Flexion (L2) 4- Good- Abduction 3+ Fair+ Adduction 4+ Good+ External Rotation 4- Good- Internal Rotation 3 Fair Knee Strength Knee Manual Muscle Testing Left Flexion (S2) 3- Fair- Extension (L3) 4+ Good+ Ankle/Foot Strength Ankle and Foot Manual Muscle Testing Left Dorsiflexion (L4) 2 Poor Plantarflexion (S1) 3 Fair PT-OP-Q Treatments Start: 03/13/21 14:33 Freq: Status: Active Protocol: Document 09/10/21 10:30 DCW (Rec: 09/10/21 11:14 DCW [id number]) Cardio Equipment Recumbent Elliptical (BiodOmPrompt) Duration (Minutes) 5 Resistance 5 Seat Position closest Other 35-40 RPMs Gym Equipment Shuttle Recovery Unilateral Squats Resistance 25# L, 37# R Shuttle Recovery Platform Stable Reps/Time 3x20- cued slow con/ eccentric control, no hyperextension, heel press, DF Shuttle Balance Red Details WBOS (EO/EC), Staggered Reps/Duration AFO off Gait Training Gait Activity gait no AD Device Used None Level of Assistance Arm swing /c PVC assist Comments Focus on L arm swing Neuro Re-Education Treatment Balance Activities Ball/cone transfer course Surface firm Equipment 5 sets of cones using LUE, golf ball Reps/Duration 3 lengths Comments Good balance control holding squat positioning. Approx 3 sec hover over cone before release using golf ball. PT-OP-R Modalities Start: 03/13/21 14:33 Freq: Status: Active Protocol: Document 09/10/21 10:30 DCW (Rec: 09/10/21 11:14 DCW [id number]) Electric Stimulation Electric Stimulation Ghanaian Stimulation Body Location Left Anterior Tib Duration (Minutes) 10 Intensity 38 Patient Position Sitting Comments 5 on, 5 off toe extension and Dorsiflexion AROM during Tibialis Anterior contraction. Pt able to toe extension and DF with AROM > able to maintain DF without assistance today. PT-OP-T Assessment and Plan Start: 03/13/21 14:33 Freq: Status: Active Protocol: Document 09/10/21 10:30 DCW (Rec: 09/10/21 11:14 [facility] [id number]) Physical Therapy Assessment Impairments Impairments Activity Tolerance,Balance, Functional Activities, Functional Mobility,Gait,ROM, Soft Tissue Mobility,Strength, Transfers Goals Three Impairment Pt completes 6MWT with an average speed of 1.91 ft/sec Short Term Goal (STG) Pt to complete 6MWT with an average speed of at least 2.4 ft/sec for a total distance > 864' to show decreased risk of functional decline STG Duration Met Residential Goal (LTG) Pt to ambulate >1200' during 6 MWT to demonstrate a return to prior level of functional gait 08/27/21: progressing 706 ft in 6 min, no AD with AFO donned. LTG Duration 10/14/21 - improving Two Impairment Increased falls risk per Hogan (41/56) and TUG (13.73) scores Short Term Goal (STG) Pt to increase Hogan score by at least 5 points to 46/56 to demonstrate decreased falls risk STG Duration Met Leather Currier Goal (LTG) Pt to increase Hogan score by at least 5 points to 53/56 to demonstrate decreased falls risk LTG Duration 10/14/20 - improving (52/56) One Impairment Pt does not have an appropriate home exercise program Short Term Goal (STG) Pt to be independent and compliant with an appropriate HEP STG Duration Met Assessment Summary Assessment Pt doing much better with arm swing today, responded well to use of PVC, and was then performing a much more natureal arm swing for two laps independently. Physical Therapy Plan Frequency and Duration Frequency of Treatment 2x/Week Duration of Treatment Three months Plan of Care Start Date 07/14/21 Plan of Care End Date 10/14/21 Therapeutic Interventions Therapeutic Interventions Aquatic Therapy,Balance Training,Gait Training,Home Exercise Program,Manual Therapy,Neuromuscular Re- education,Patient/Caregiver Education,Self-Care/Home Management,Soft Tissue Mobilization,Therapeutic Exercises Modalities Cold Pack/Ice Massage,Electric Stimulation,Hot Packs Next Visit Focus/Plan Next Note Type Treatment Note Next Visit Plan Recheck HEP: Hamstring curl TB , ball cone transfer and shuttle balance/ recovery without AFO. Pt requested decrease PT to 1x /week. POC: increased balance challenges and ball/cone transfers using L UE, STMs L Piriformis as needed.
--- NOTE | 2021-09-15 13:00 | PT.OTN ---
Current Diagnoses Cerebral infarction, unspecified (09/15/21) Muscle weakness (generalized) (09/15/21) Other abnormalities of gait and mobility (09/15/21) Repeated falls (09/15/21) Other symptoms and signs involving the musculoskeletal system (09/15/21) Physical Therapy Treatment Note PT-OP-A Visit Information Start: 03/13/21 14:33 Freq: Status: Active Protocol: Document 09/15/21 12:16 SP (Rec: 09/15/21 13:10 SP [id number]) Out-Patient Physical Therapy Visit Information Visit Information Visit Type Treatment Note Visit Start Time 12:16 Visit Stop Time 13:00 Total Visit Minutes 44 Visit Number 44 Number of DETAILER PHARMACEUTICALS Visits 1 Evaluation Information Evaluation Date 03/13/21 PT-OP-B Current Condition Start: 03/13/21 14:33 Freq: Status: Active Protocol: Document 03/13/21 12:00 DCW (Rec: 03/13/21 15:08 DCW [id number]) Current Condition History of Current Condition Onset Date 12/16/20 Current Complaints Hemiparesis, weakness, gait difficulty, decreased balance History of Current Condition Pt is a 65 year old female presenting three months s/p thalamic CVA. Pt presented to ED on 12/16/20 with sudden onset of left-sided weakness when waking up early in the AM to go to the bathroom. Pt noticed she could not more her left arm, tried to stand up, and fell over when her left leg was also unable to support her. The day after hospitalization, pt was transferred to [facility] for intensive rehab, notes she underwent 2.5 hours of PT/OT each day. Pt remained there for one months, and was then discharged home on January 13 with home health, and since that time has been undergoing PT 2x/week and OT 3x/week, and was discharged from both disciplines earlier this week. Pt reports her left arm function is her biggest concern, and has been referred to outpatient OT for this, but also has difficulty with gait and balance. Pt wears an AFO on her left foot due to foot drop, and walks with a SPC. Admits she has had a few falls, but her balance has been a bit better since she left [facility] and has been slightly more stable at home. Treatment Goals Patient/Caregiver Goals I want to get back to normal function. I want to be able to walk independently without the cane, and use my arms like before. Really, I want to be able to live without depending on anyone, I was so independent before. PT-OP-C Subjective Start: 03/13/21 14:33 Freq: Status: Active Protocol: Document 09/15/21 12:16 SP (Rec: 09/15/21 13:10 SP [id number]) OP-PT Subjective Patient Comments Patient Comments Pt reported had second thoughts and family in agreement continue with POC 2x /wk as current appts scheduled . Pt states not completely standy with AFO. 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 and difficutly getting boot off, not steady but hasn't tripped PT-OP-D Balance Start: 03/13/21 14:33 Freq: Status: Active Protocol: Document 07/14/21 10:30 DCW (Rec: 07/14/21 11:07 DCW [id number]) Balance Tests Hogan Balance Test Hogan Balance Test Score 52/56 Hogan Impairment Rating 1 to 19% Impaired (Score 45-55 ) Single Limb Standing Single Limb- Right 20 seconds Single Limb- Left 3 seconds Hogan Balance Assessment Evaluation Sitting to Standing Ability Independent w/out Hands Unsupported Stance Safely- 2 minutes Sitting Unsupported, Feet on Floor Safely- 2 minutes Standing to Sitting Ability Safely, Minimal Hand Use Transfer Ability Safely, Minimal Hand Use Unsupported Stance- Eyes Closed Safely, 10 seconds Unsupported Stance- Eyes Open Independent, 1 minute Reaching Forward Standing Safely, 5 inches Pick- Up Object From Floor Independent/Safe Look Behind Shoulder - Standing Shifts Weight Well Turning 360 Degrees Turns Bilateral, < 4 secs Unsupported Stance, Alternating Feet on (I)- 8 Steps in 20 secs Stair Unsupported Tandem Stance Holds Tandem- 30 seconds Unilateral Leg Stance Lifts Leg/Holds > 3 secs Total Score Hogan Total Score (out of 56 points) 52 Hogan Impairment Rating 1 to 19% Impaired (Score 45-55 ) PT-OP-E Functional Tests Start: 03/13/21 14:33 Freq: Status: Active Protocol: Document 07/14/21 10:30 DCW (Rec: 07/14/21 11:07 DCW [id number]) Functional Tests 6 Minute Walk Test Distance 989' Device Used SPC Comments 2.75 ft/sec Timed Up and Go (TUG) Score 11.31 /s AD Comments 3-trial average (11.56,11.21 , 11.17) TUG Impairment Rating 1 to <20% Impaired (Score 11) PT-OP-M Strength Start: 03/13/21 14:33 Freq: Status: Active Protocol: Document 07/14/21 10:30 DCW (Rec: 07/14/21 11:07 DCW [id number]) Hip Strength Hip Manual Muscle Testing Left Flexion (L2) 4- Good- Abduction 3+ Fair+ Adduction 4+ Good+ External Rotation 4- Good- Internal Rotation 3 Fair Knee Strength Knee Manual Muscle Testing Left Flexion (S2) 3- Fair- Extension (L3) 4+ Good+ Ankle/Foot Strength Ankle and Foot Manual Muscle Testing Left Dorsiflexion (L4) 2 Poor Plantarflexion (S1) 3 Fair PT-OP-Q Treatments Start: 03/13/21 14:33 Freq: Status: Active Protocol: Document 09/15/21 12:16 SP (Rec: 09/15/21 13:10 SP [id number]) Cardio Equipment Recumbent Elliptical (Selvz) Duration (Minutes) 6 Resistance 5 Seat Position closest, wedge behind back Other 35-40 RPMs, LEs only Gym Equipment Shuttle Recovery Unilateral Squats Details contact post L knee safety not hyperextension Resistance 25#x20>37# x20, 37# L, 37# R Shuttle Recovery Platform Stable Reps/Time cued slow con/ eccentric control, no hyperextension, heel press, DF Therapeutic Exercises Sitting Exercises Knee flexion Sitting Exercise Name reviewed HEP. with slow eccentric return to start position, R foot on box Side left Resistance L #2 TB 2x20, RLE #3 TB 2x20 Equipment Used 18 chair sitting tall, femur supported Reps/Minutes reminded continue at home Comments cues for slow conc/ecc contraction, opp LE on step support Gait Training Gait Activity gait no AD Device Used None Level of Assistance Arm swing Distance/Duration 510 (170 ft x3 laps) Comments Focus on L arm swing push/ swing forward, Cued L knee flexion and eccentric heel toe awareness/ soft knee not hyperextension midstance to toe off, improved with slower pacing. Neuro Re-Education Treatment Balance Activities Ball/cone transfer course Details CGA for safety Surface firm Equipment 5 sets of cones> pods using LUE, golf ball- wider than arms lengt Reps/Duration 3 lengths Comments Good balance control holding squat positioning. Approx 3 sec hover over cone before release using golf ball.-wider distance between cones allow increase side step squat for assimulation feeding chickens and picking up objects closer to floor. stable no LOB PT-OP-R Modalities Start: 03/13/21 14:33 Freq: Status: Active Protocol: Document 09/10/21 10:30 DCW (Rec: 09/10/21 11:14 DCW [id number]) Electric Stimulation Electric Stimulation Italian Stimulation Body Location Left Anterior Tib Duration (Minutes) 10 Intensity 38 Patient Position Sitting Comments 5 on, 5 off toe extension and Dorsiflexion AROM during Tibialis Anterior contraction. Pt able to toe extension and DF with AROM > able to maintain DF without assistance today. PT-OP-T Assessment and Plan Start: 03/13/21 14:33 Freq: Status: Active Protocol: Document 09/15/21 12:16 SP (Rec: 09/15/21 13:10 SP [id number]) Physical Therapy Assessment Goals Three Impairment Pt completes 6MWT with an average speed of 1.91 ft/sec Short Term Goal (STG) Pt to complete 6MWT with an average speed of at least 2.4 ft/sec for a total distance > 864' to show decreased risk of functional decline STG Duration Met Group Home Goal (LTG) Pt to ambulate >1200' during 6 MWT to demonstrate a return to prior level of functional gait 08/27/21: progressing 706 ft in 6 min, no AD with AFO donned. LTG Duration 10/14/21 - improving Two Impairment Increased falls risk per Hogan (41/56) and TUG (13.73) scores Short Term Goal (STG) Pt to increase Hogan score by at least 5 points to 46/56 to demonstrate decreased falls risk STG Duration Met Group Home Goal (LTG) Pt to increase Hogan score by at least 5 points to 53/56 to demonstrate decreased falls risk LTG Duration 10/14/20 - improving (52/56) One Impairment Pt does not have an appropriate home exercise program Short Term Goal (STG) Pt to be independent and compliant with an appropriate HEP STG Duration Met Assessment Summary Assessment DETAILER [employer]IC[employer] discussed with supervising PT and pt wanting to continue 2x/wk, sent message to front. Pt was able maintain static moderate squat to tie shoe ( AFO doffed at time- between bike/shuttle recovery). Pt improved L arm swing carryover cues for reaching forward without UT recruitment. Physical Therapy Plan Frequency and Duration Frequency of Treatment 2x/Week Duration of Treatment Three months Plan of Care Start Date 07/14/21 Plan of Care End Date 10/14/21 Therapeutic Interventions Therapeutic Interventions Aquatic Therapy,Balance Training,Gait Training,Home Exercise Program,Manual Therapy,Neuromuscular Re- education,Patient/Caregiver Education,Self-Care/Home Management,Soft Tissue Mobilization,Therapeutic Exercises Modalities Cold Pack/Ice Massage,Electric Stimulation,Hot Packs Next Visit Focus/Plan Next Note Type Treatment Note Next Visit Plan Recheck HEP: Hamstring curl TB , ball cone transfer and shuttle balance/ recovery without AFO. POC: increased balance challenges and ball/cone transfers using L UE, STMs L Piriformis as needed.
--- NOTE | 2021-09-17 10:39 | PT.OTN ---
Current Diagnoses Cerebral infarction, unspecified (09/17/21) Muscle weakness (generalized) (09/17/21) Other abnormalities of gait and mobility (09/17/21) Repeated falls (09/17/21) Other symptoms and signs involving the musculoskeletal system (09/17/21) Physical Therapy Treatment Note PT-OP-A Visit Information Start: 03/13/21 14:33 Freq: Status: Active Protocol: Document 09/17/21 09:44 SP (Rec: 09/17/21 10:36 SP [id number]) Out-Patient Physical Therapy Visit Information Visit Information Visit Type Treatment Note Visit Start Time 09:45 Visit Stop Time 10:39 Total Visit Minutes 54 Visit Number 45 Number of SOURCING ANALYST Visits 2 Evaluation Information Evaluation Date 03/13/21 PT-OP-B Current Condition Start: 03/13/21 14:33 Freq: Status: Active Protocol: Document 03/13/21 12:00 DCW (Rec: 03/13/21 15:08 DCW [id number]) Current Condition History of Current Condition Onset Date 12/16/20 Current Complaints Hemiparesis, weakness, gait difficulty, decreased balance History of Current Condition Pt is a 65 year old female presenting three months s/p thalamic CVA. Pt presented to ED on 12/16/20 with sudden onset of left-sided weakness when waking up early in the AM to go to the bathroom. Pt noticed she could not more her left arm, tried to stand up, and fell over when her left leg was also unable to support her. The day after hospitalization, pt was transferred to [facility] for intensive rehab, notes she underwent 2.5 hours of PT/OT each day. Pt remained there for one months, and was then discharged home on January 13 with home health, and since that time has been undergoing PT 2x/week and OT 3x/week, and was discharged from both disciplines earlier this week. Pt reports her left arm function is her biggest concern, and has been referred to outpatient OT for this, but also has difficulty with gait and balance. Pt wears an AFO on her left foot due to foot drop, and walks with a SPC. Admits she has had a few falls, but her balance has been a bit better since she left [facility] and has been slightly more stable at home. Treatment Goals Patient/Caregiver Goals I want to get back to normal function. I want to be able to walk independently without the cane, and use my arms like before. Really, I want to be able to live without depending on anyone, I was so independent before. PT-OP-C Subjective Start: 03/13/21 14:33 Freq: Status: Active Protocol: Document 09/17/21 09:44 SP (Rec: 09/17/21 10:36 SP [id number]) OP-PT Subjective Patient Comments Patient Comments Pt reported has been walking in house doing ROM, stretching of L foot/toes motion for walking to help toe extension. PT-OP-D Balance Start: 03/13/21 14:33 Freq: Status: Active Protocol: Document 07/14/21 10:30 DCW (Rec: 07/14/21 11:07 DCW [id number]) Balance Tests Hogan Balance Test Hogan Balance Test Score 52/56 Hogan Impairment Rating 1 to 19% Impaired (Score 45-55 ) Single Limb Standing Single Limb- Right 20 seconds Single Limb- Left 3 seconds Hogan Balance Assessment Evaluation Sitting to Standing Ability Independent w/out Hands Unsupported Stance Safely- 2 minutes Sitting Unsupported, Feet on Floor Safely- 2 minutes Standing to Sitting Ability Safely, Minimal Hand Use Transfer Ability Safely, Minimal Hand Use Unsupported Stance- Eyes Closed Safely, 10 seconds Unsupported Stance- Eyes Open Independent, 1 minute Reaching Forward Standing Safely, 5 inches Pick- Up Object From Floor Independent/Safe Look Behind Shoulder - Standing Shifts Weight Well Turning 360 Degrees Turns Bilateral, < 4 secs Unsupported Stance, Alternating Feet on (I)- 8 Steps in 20 secs Stair Unsupported Tandem Stance Holds Tandem- 30 seconds Unilateral Leg Stance Lifts Leg/Holds > 3 secs Total Score Hogan Total Score (out of 56 points) 52 Hogan Impairment Rating 1 to 19% Impaired (Score 45-55 ) PT-OP-E Functional Tests Start: 03/13/21 14:33 Freq: Status: Active Protocol: Document 07/14/21 10:30 DCW (Rec: 07/14/21 11:07 DCW [id number]) Functional Tests 6 Minute Walk Test Distance 989' Device Used SPC Comments 2.75 ft/sec Timed Up and Go (TUG) Score 11.31 /s AD Comments 3-trial average (11.56,11.21 , 11.17) TUG Impairment Rating 1 to <20% Impaired (Score 11) PT-OP-M Strength Start: 03/13/21 14:33 Freq: Status: Active Protocol: Document 07/14/21 10:30 DCW (Rec: 07/14/21 11:07 DCW [id number]) Hip Strength Hip Manual Muscle Testing Left Flexion (L2) 4- Good- Abduction 3+ Fair+ Adduction 4+ Good+ External Rotation 4- Good- Internal Rotation 3 Fair Knee Strength Knee Manual Muscle Testing Left Flexion (S2) 3- Fair- Extension (L3) 4+ Good+ Ankle/Foot Strength Ankle and Foot Manual Muscle Testing Left Dorsiflexion (L4) 2 Poor Plantarflexion (S1) 3 Fair PT-OP-Q Treatments Start: 03/13/21 14:33 Freq: Status: Active Protocol: Document 09/17/21 09:44 SP (Rec: 09/17/21 10:36 SP [id number]) Cardio Equipment Recumbent Elliptical (CallFire) Duration (Minutes) 8 Resistance 5 Seat Position closest, wedge behind back Other 35-40 RPMs, 528 steps total, LEs only Gym Equipment Shuttle Recovery Unilateral Squats Details occasional contact post L knee safety not hyperextension Resistance L 37# x20, 50# R 2x20 each Shuttle Recovery Platform Stable Reps/Time cued slow L con/ eccentric control, no hyperextension, heel press, allow DF Therapeutic Exercises Standing Exercises LLE march/ SLS Standing Exercise Name added to HEP Side left Resistance AROM Equipment Used contact counter in front mirror [place] needed Reps/Minutes 2x5 Comments cued trunk alignment, slow con / ecc L knee flexion to improve SLS time& bal Gait Training Gait Activity forward quality gait in mirror Description quality gait with mirror self feedback corrections Device Used 0 (AFO donned LLE) Level of Assistance SBA Surface firm Distance/Duration 20 ft x3 lengths Treatment Focus trunk alignment, L knee flexion for foot clearance and eccentric heel toe Comments Cued: trunk alignment stable w / decreased SB wt shifting to R during LLE advancement, L knee flexion for foot clearance and eccentric heel toe, pt improved foot clearance and decreased hip hike on L. gait no AD Device Used None Level of Assistance Arm swing Surface firm Distance/Duration 853 ft in 6 min (853ft/360 sec =2.37 ft/sec) Comments Focus on L arm swing, L knee flexion smaller strike and softer eccentric heel strike for normalizing = cadance. LOB x1 L toe caught floor turing R, 10%A recovery via gait belt. Neuro Re-Education Treatment Balance Activities SLS march Surface L Comments contact rail occasional for form Ball/cone transfer course Details CGA for safety Surface firm Equipment 5 sets of cones> pods using LUE, golf balls Reps/Duration 3 lengths Comments Good balance control holding squat positioning. Approx 2 sec hover over cone before release LUE using golf ball. Cued wt shift over LLE for equal squat WB strengthening. stable no LOB. PT-OP-R Modalities Start: 03/13/21 14:33 Freq: Status: Active Protocol: Document 09/17/21 09:44 SP (Rec: 09/17/21 10:36 SP [id number]) Electric Stimulation Electric Stimulation B[place]an Stimulation Body Location Left Anterior Tib Duration (Minutes) 10 Intensity 39 Patient Position Sitting Comments 5 on, 5 off toe extension and Dorsiflexion AROM during Tibialis Anterior contraction. Pt able to toe extension and DF with AROM > able to maintain DF without assistance . PT-OP-T Assessment and Plan Start: 03/13/21 14:33 Freq: Status: Active Protocol: Document 09/17/21 09:44 SP (Rec: 09/17/21 10:36 SP [id number]) Physical Therapy Assessment Goals Three Impairment Pt completes 6MWT with an average speed of 1.91 ft/sec Short Term Goal (STG) Pt to complete 6MWT with an average speed of at least 2.4 ft/sec for a total distance > 864' to show decreased risk of functional decline STG Duration Met Professor Of Exercise Science Goal (LTG) Pt to ambulate >1200' during 6 MWT to demonstrate a return to prior level of functional gait 08/27/21: progressing 706 ft in 6 min, no AD with AFO donned. 09/17/21: progressin ft in 6 min (853ft/360 sec=2.37 ft/sec) no AD, AFO Donned- LOB L toe caught floor 10%A recovery via gait belt. LTG Duration 10/14/21 - improving Two Impairment Increased falls risk per Hogan (41/56) and TUG (13.73) scores Short Term Goal (STG) Pt to increase Hogan score by at least 5 points to 46/56 to demonstrate decreased falls risk STG Duration Met Professor Of Exercise Science Goal (LTG) Pt to increase Hogan score by at least 5 points to 53/56 to demonstrate decreased falls risk LTG Duration 10/14/20 - improving (52/56) One Impairment Pt does not have an appropriate home exercise program Short Term Goal (STG) Pt to be independent and compliant with an appropriate HEP STG Duration Met Assessment Summary Assessment Pt improved in understanding self corrections for equal cadance with cues for L knee flexion during swing phase and soft eccentric heel strike, stable trunk alignment to normalize gait. Physical Therapy Plan Frequency and Duration Frequency of Treatment 2x/Week Duration of Treatment Three months Plan of Care Start Date 07/14/21 Plan of Care End Date 10/14/21 Therapeutic Interventions Therapeutic Interventions Aquatic Therapy,Balance Training,Gait Training,Home Exercise Program,Manual Therapy,Neuromuscular Re- education,Patient/Caregiver Education,Self-Care/Home Management,Soft Tissue Mobilization,Therapeutic Exercises Modalities Cold Pack/Ice Massage,Electric Stimulation,Hot Packs Next Visit Focus/Plan Next Note Type Treatment Note Next Visit Plan Recheck SLS marching for strength RLE stance/ balance to allow RLE advancement for gait. POC: increased balance challenges and ball/cone transfers using L UE, STMs L Piriformis as needed.
--- NOTE | 2021-09-28 10:23 | PT.OTN ---
Current Diagnoses Cerebral infarction, unspecified (09/28/21) Muscle weakness (generalized) (09/28/21) Other abnormalities of gait and mobility (09/28/21) Repeated falls (09/28/21) Other symptoms and signs involving the musculoskeletal system (09/28/21) Physical Therapy Treatment Note PT-OP-A Visit Information Start: 03/13/21 14:33 Freq: Status: Active Protocol: Document 09/28/21 09:45 DCW (Rec: 09/28/21 10:23 DCW [id number]) Out-Patient Physical Therapy Visit Information Visit Information Visit Type Treatment Note Visit Start Time 09:45 Visit Stop Time 10:30 Total Visit Minutes 45 Visit Number 46 Number of STATISTICAL METHODS TEACHER Visits 0 Evaluation Information Evaluation Date 03/13/21 PT-OP-B Current Condition Start: 03/13/21 14:33 Freq: Status: Active Protocol: Document 03/13/21 12:00 DCW (Rec: 03/13/21 15:08 DCW [id number]) Current Condition History of Current Condition Onset Date 12/16/20 Current Complaints Hemiparesis, weakness, gait difficulty, decreased balance History of Current Condition Pt is a 65 year old female presenting three months s/p thalamic CVA. Pt presented to ED on 12/16/20 with sudden onset of left-sided weakness when waking up early in the AM to go to the bathroom. Pt noticed she could not more her left arm, tried to stand up, and fell over when her left leg was also unable to support her. The day after hospitalization, pt was transferred to [facility], [place] for intensive rehab, notes she underwent 2.5 hours of PT/OT each day. Pt remained there for one months, and was then discharged home on January 13 with [facility], and since that time has been undergoing PT 2x/week and OT 3x/week, and was discharged from both disciplines earlier this week. Pt reports her left arm function is her biggest concern, and has been referred to outpatient OT for this, but also has difficulty with gait and balance. Pt wears an AFO on her left foot due to foot drop, and walks with a SPC. Admits she has had a few falls, but her balance has been a bit better since she left [facility] [place] and has been slightly more stable at home. Treatment Goals Patient/Caregiver Goals I want to get back to normal function. I want to be able to walk independently without the cane, and use my arms like before. Really, I want to be able to live without depending on anyone, I was so independent before. PT-OP-C Subjective Start: 03/13/21 14:33 Freq: Status: Active Protocol: Document 09/28/21 09:45 DCW (Rec: 09/28/21 10:23 DCW [id number]) OP-PT Subjective Patient Comments Patient Comments Pt notes she has been getting out, moving around okay, still not using her cane. A little Mr Abel-domingo, but I've been finding my balance. PT-OP-D Balance Start: 03/13/21 14:33 Freq: Status: Active Protocol: Document 07/14/21 10:30 DCW (Rec: 07/14/21 11:07 DCW [id number]) Balance Tests Hogan Balance Test Hogan Balance Test Score 52/56 Hogan Impairment Rating 1 to 19% Impaired (Score 45-55 ) Single Limb Standing Single Limb- Right 20 seconds Single Limb- Left 3 seconds Hogan Balance Assessment Evaluation Sitting to Standing Ability Independent w/out Hands Unsupported Stance Safely- 2 minutes Sitting Unsupported, Feet on Floor Safely- 2 minutes Standing to Sitting Ability Safely, Minimal Hand Use Transfer Ability Safely, Minimal Hand Use Unsupported Stance- Eyes Closed Safely, 10 seconds Unsupported Stance- Eyes Open Independent, 1 minute Reaching Forward Standing Safely, 5 inches Pick- Up Object From Floor Independent/Safe Look Behind Shoulder - Standing Shifts Weight Well Turning 360 Degrees Turns Bilateral, < 4 secs Unsupported Stance, Alternating Feet on (I)- 8 Steps in 20 secs Stair Unsupported Tandem Stance Holds Tandem- 30 seconds Unilateral Leg Stance Lifts Leg/Holds > 3 secs Total Score Hogan Total Score (out of 56 points) 52 Hogan Impairment Rating 1 to 19% Impaired (Score 45-55 ) PT-OP-E Functional Tests Start: 03/13/21 14:33 Freq: Status: Active Protocol: Document 07/14/21 10:30 DCW (Rec: 07/14/21 11:07 DCW [id number]) Functional Tests 6 Minute Walk Test Distance 989' Device Used SPC Comments 2.75 ft/sec Timed Up and Go (TUG) Score 11.31 /s AD Comments 3-trial average (11.56,11.21 , 11.17) TUG Impairment Rating 1 to <20% Impaired (Score 11) PT-OP-M Strength Start: 03/13/21 14:33 Freq: Status: Active Protocol: Document 07/14/21 10:30 DCW (Rec: 07/14/21 11:07 DCW [id number]) Hip Strength Hip Manual Muscle Testing Left Flexion (L2) 4- Good- Abduction 3+ Fair+ Adduction 4+ Good+ External Rotation 4- Good- Internal Rotation 3 Fair Knee Strength Knee Manual Muscle Testing Left Flexion (S2) 3- Fair- Extension (L3) 4+ Good+ Ankle/Foot Strength Ankle and Foot Manual Muscle Testing Left Dorsiflexion (L4) 2 Poor Plantarflexion (S1) 3 Fair PT-OP-Q Treatments Start: 03/13/21 14:33 Freq: Status: Active Protocol: Document 09/28/21 09:45 DCW (Rec: 09/28/21 10:23 DCW [id number]) Cardio Equipment Recumbent Elliptical ([employer]) Duration (Minutes) 5 Resistance 5 Seat Position closest seat Other LEs only, 322 steps Gym Equipment Shuttle Balance Red Details WBOS (EO/EC), Staggered Reps/Duration AFO off Sport Cord 1 Exercise Details Fwd/Bkwd/Lateral stepping (w/ L AFO) Cord/Resistance blue Reps/Duration 5x each direction Neuro Re-Education Treatment Balance Activities 1 Details Hurdles/foam Comments CGA PT-OP-R Modalities Start: 03/13/21 14:33 Freq: Status: Active Protocol: Document 09/28/21 09:45 DCW (Rec: 09/28/21 10:23 DCW [id number]) Electric Stimulation Electric Stimulation Swiss Stimulation Body Location Left Anterior Tib Duration (Minutes) 10 Intensity 46 Patient Position Sitting Comments 5 on, 5 off toe extension and Dorsiflexion AROM during Tibialis Anterior contraction. Pt able to toe extension and DF with AROM > able to maintain DF without assistance . PT-OP-T Assessment and Plan Start: 03/13/21 14:33 Freq: Status: Active Protocol: Document 09/28/21 09:45 DCW (Rec: 09/28/21 10:23 DCW [id number]) Physical Therapy Assessment Goals Three Impairment Pt completes 6MWT with an average speed of 1.91 ft/sec Short Term Goal (STG) Pt to complete 6MWT with an average speed of at least 2.4 ft/sec for a total distance > 864' to show decreased risk of functional decline STG Duration Met Correction Goal (LTG) Pt to ambulate >1200' during 6 MWT to demonstrate a return to prior level of functional gait 08/27/21: progressing 706 ft in 6 min, no AD with AFO donned. 09/17/21: progressin ft in 6 min (853ft/360 sec=2.37 ft/sec) no AD, AFO Donned- LOB L toe caught floor 10%A recovery via gait belt. LTG Duration 10/14/21 - improving Two Impairment Increased falls risk per Hogan (41/56) and TUG (13.73) scores Short Term Goal (STG) Pt to increase Hogan score by at least 5 points to 46/56 to demonstrate decreased falls risk STG Duration Met Correction Goal (LTG) Pt to increase Hogan score by at least 5 points to 53/56 to demonstrate decreased falls risk LTG Duration 10/14/20 - improving (52/56) One Impairment Pt does not have an appropriate home exercise program Short Term Goal (STG) Pt to be independent and compliant with an appropriate HEP STG Duration Met Assessment Summary Assessment Pt has been practicing arm swing, and shows good improvement with both arm swing and swing phase of L LE. Physical Therapy Plan Frequency and Duration Frequency of Treatment 2x/Week Duration of Treatment Three months Plan of Care Start Date 07/14/21 Plan of Care End Date 10/14/21 Therapeutic Interventions Therapeutic Interventions Aquatic Therapy,Balance Training,Gait Training,Home Exercise Program,Manual Therapy,Neuromuscular Re- education,Patient/Caregiver Education,Self-Care/Home Management,Soft Tissue Mobilization,Therapeutic Exercises Modalities Cold Pack/Ice Massage,Electric Stimulation,Hot Packs Next Visit Focus/Plan Next Note Type Treatment Note Next Visit Plan Recheck SLS marching for strength RLE stance/ balance to allow RLE advancement for gait. POC: increased balance challenges and ball/cone transfers using L UE, STMs L Piriformis as needed.
--- NOTE | 2021-10-16 09:46 | PT.OTN ---
Current Diagnoses Cerebral infarction, unspecified (10/16/21) Muscle weakness (generalized) (10/16/21) Other abnormalities of gait and mobility (10/16/21) Repeated falls (10/16/21) Other symptoms and signs involving the musculoskeletal system (10/16/21) Physical Therapy Treatment Note PT-OP-A Visit Information Start: 03/13/21 14:33 Freq: Status: Active Protocol: Document 10/16/21 09:00 DCW (Rec: 10/16/21 09:46 DCW [id number]) Out-Patient Physical Therapy Visit Information Visit Information Visit Type Progress Note Visit Start Time 09:00 Visit Stop Time 09:45 Total Visit Minutes 45 Visit Number 47 Number of PLEAT TAPER Visits 0 Evaluation Information Evaluation Date 03/13/21 PT-OP-B Current Condition Start: 03/13/21 14:33 Freq: Status: Active Protocol: Document 03/13/21 12:00 DCW (Rec: 03/13/21 15:08 DCW [id number]) Current Condition History of Current Condition Onset Date 12/16/20 Current Complaints Hemiparesis, weakness, gait difficulty, decreased balance History of Current Condition Pt is a 65 year old female presenting three months s/p thalamic CVA. Pt presented to ED on 12/16/20 with sudden onset of left-sided weakness when waking up early in the AM to go to the bathroom. Pt noticed she could not more her left arm, tried to stand up, and fell over when her left leg was also unable to support her. The day after hospitalization, pt was transferred to [facility] for intensive rehab, notes she underwent 2.5 hours of PT/OT each day. Pt remained there for one months, and was then discharged home on January 13 with [facility], and since that time has been undergoing PT 2x/week and OT 3x/week, and was discharged from both disciplines earlier this week. Pt reports her left arm function is her biggest concern, and has been referred to outpatient OT for this, but also has difficulty with gait and balance. Pt wears an AFO on her left foot due to foot drop, and walks with a SPC. Admits she has had a few falls, but her balance has been a bit better since she left [facility] and has been slightly more stable at home. Treatment Goals Patient/Caregiver Goals I want to get back to normal function. I want to be able to walk independently without the cane, and use my arms like before. Really, I want to be able to live without depending on anyone, I was so independent before. PT-OP-C Subjective Start: 03/13/21 14:33 Freq: Status: Active Protocol: Document 10/16/21 09:00 DCW (Rec: 10/16/21 09:46 DCW [id number]) OP-PT Subjective Patient Comments Patient Comments Pt feeling pretty good with current level of function PT-OP-D Balance Start: 03/13/21 14:33 Freq: Status: Active Protocol: Document 07/14/21 10:30 DCW (Rec: 07/14/21 11:07 DCW [id number]) Balance Tests Hogan Balance Test Hogan Balance Test Score 52/56 Hogan Impairment Rating 1 to 19% Impaired (Score 45-55 ) Single Limb Standing Single Limb- Right 20 seconds Single Limb- Left 3 seconds Hogan Balance Assessment Evaluation Sitting to Standing Ability Independent w/out Hands Unsupported Stance Safely- 2 minutes Sitting Unsupported, Feet on Floor Safely- 2 minutes Standing to Sitting Ability Safely, Minimal Hand Use Transfer Ability Safely, Minimal Hand Use Unsupported Stance- Eyes Closed Safely, 10 seconds Unsupported Stance- Eyes Open Independent, 1 minute Reaching Forward Standing Safely, 5 inches Pick- Up Object From Floor Independent/Safe Look Behind Shoulder - Standing Shifts Weight Well Turning 360 Degrees Turns Bilateral, < 4 secs Unsupported Stance, Alternating Feet on (I)- 8 Steps in 20 secs Stair Unsupported Tandem Stance Holds Tandem- 30 seconds Unilateral Leg Stance Lifts Leg/Holds > 3 secs Total Score Hogan Total Score (out of 56 points) 52 Hogan Impairment Rating 1 to 19% Impaired (Score 45-55 ) PT-OP-E Functional Tests Start: 03/13/21 14:33 Freq: Status: Active Protocol: Document 10/16/21 09:00 DCW (Rec: 10/16/21 09:38 DCW [id number]) Functional Tests 6 Minute Walk Test Distance 1161' Device Used none Comments 3.23 ft/sec Dynamic Gait Index (DGI) Score 20/24 Functional Gait Assessment Score 20/30 Timed Up and Go (TUG) Score 10.03 /s AD Comments 3-trial average (10.43,9.74, 9.92) TUG Impairment Rating 1 to <20% Impaired (Score 11) PT-OP-M Strength Start: 03/13/21 14:33 Freq: Status: Active Protocol: Document 10/16/21 09:00 DCW (Rec: 10/16/21 09:38 DCW [id number]) Hip Strength Hip Manual Muscle Testing Left Flexion (L2) 4- Good- Abduction 3+ Fair+ Adduction 4+ Good+ External Rotation 4+ Good+ Internal Rotation 4 Good Knee Strength Knee Manual Muscle Testing Left Flexion (S2) 3+ Fair+ Extension (L3) 5 Normal PT-OP-Q Treatments Start: 03/13/21 14:33 Freq: Status: Active Protocol: Document 10/16/21 09:00 DCW (Rec: 10/16/21 09:46 DCW [id number]) Neuro Re-Education Treatment Other Activities 1 Details Testing Comments 6 MWT, MMT, TUG, DGI, FGA PT-OP-R Modalities Start: 03/13/21 14:33 Freq: Status: Active Protocol: Document 09/28/21 09:45 DCW (Rec: 09/28/21 10:23 DCW [id number]) Electric Stimulation Electric Stimulation Lithuanian Stimulation Body Location Left Anterior Tib Duration (Minutes) 10 Intensity 46 Patient Position Sitting Comments 5 on, 5 off toe extension and Dorsiflexion AROM during Tibialis Anterior contraction. Pt able to toe extension and DF with AROM > able to maintain DF without assistance . PT-OP-T Assessment and Plan Start: 03/13/21 14:33 Freq: Status: Active Protocol: Document 10/16/21 09:00 DCW (Rec: 10/16/21 09:46 DCW [id number]) Physical Therapy Assessment Goals Three Impairment Pt completes 6MWT with an average speed of 1.91 ft/sec Short Term Goal (STG) Pt to complete 6MWT with an average speed of at least 2.4 ft/sec for a total distance > 864' to show decreased risk of functional decline STG Duration Met Fur Vault Attendant Goal (LTG) Pt to ambulate >1200' during 6 MWT to demonstrate a return to prior level of functional gait 08/27/21: progressing 706 ft in 6 min, no AD with AFO donned. 09/17/21: progressin ft in 6 min (853ft/360 sec=2.37 ft/sec) no AD, AFO Donned- LOB L toe caught floor 10%A recovery via gait belt. LTG Duration 10/16/21 - improving (1161') Two Impairment Increased falls risk per Hogan (41/56) and TUG (13.73) scores Short Term Goal (STG) Pt to increase Hogan score by at least 5 points to 46/56 to demonstrate decreased falls risk STG Duration Met Fur Vault Attendant Goal (LTG) Pt to increase Hogan score by at least 5 points to 53/56 to demonstrate decreased falls risk LTG Duration 10/14/20 - improving (52/56) One Impairment Pt does not have an appropriate home exercise program Short Term Goal (STG) Pt to be independent and compliant with an appropriate HEP STG Duration Met Assessment Summary Assessment Pt has largely met or nearly met all goals. TUG score at 10 .03, 6 MWT >1000' /s an assistive device, Hogan and DGI show pt not in an increased falls risk category. The much more difficult FGA does place pt in an increased falls risk, with a 20/30 score, below the cutoff of 22/30. Discussed current level of function with pt, and at this time, pt in comfortable with discharge. Pt understands that she will need a new referral for further physical therapy. Pt is showing significant improvement in all areas, including balance, gait, and LE strength. Pt has become much better with arm swing during gait. Physical Therapy Plan Frequency and Duration Frequency of Treatment 1x/Week Duration of Treatment 1 day Plan of Care Start Date 10/16/21 Plan of Care End Date 10/17/21 Therapeutic Interventions Therapeutic Interventions Aquatic Therapy,Balance Training,Gait Training,Home Exercise Program,Manual Therapy,Neuromuscular Re- education,Patient/Caregiver Education,Self-Care/Home Management,Soft Tissue Mobilization,Therapeutic Exercises Modalities Cold Pack/Ice Massage,Electric Stimulation,Hot Packs Discharge Physical Therapy Discharge Reasons Patient Request Next Visit Focus/Plan Next Note Type Discharge Summary
--- NOTE | 2021-10-16 09:47 | PT.OPPOC ---
Physical, Occupational & Speech Therapy At [facility] Current Diagnoses Cerebral infarction, unspecified (10/16/21) Muscle weakness (generalized) (10/16/21) Other abnormalities of gait and mobility (10/16/21) Repeated falls (10/16/21) Other symptoms and signs involving the musculoskeletal system (10/16/21) Visit Care Team Role Provider Type Xiomara Diego DO Attending Provider Physician Primary Care Provider Referring Provider Specialty: [facility] Address: [address] [place] [address], [facility] Email: [email or web address] Plan Of Care PT-OP-T Assessment and Plan Start: 03/13/21 14:33 Freq: Status: Active Protocol: Document 10/16/21 09:00 DCW (Rec: 10/16/21 09:46 DCW [id number]) Physical Therapy Assessment Goals Three Impairment Pt completes 6MWT with an average speed of 1.91 ft/sec Short Term Goal (STG) Pt to complete 6MWT with an average speed of at least 2.4 ft/sec for a total distance > 864' to show decreased risk of functional decline STG Duration Met Half-Way Goal (LTG) Pt to ambulate >1200' during 6 MWT to demonstrate a return to prior level of functional gait 08/27/21: progressing 706 ft in 6 min, no AD with AFO donned. 09/17/21: progressin ft in 6 min (853ft/360 sec=2.37 ft/sec) no AD, AFO Donned- LOB L toe caught floor 10%A recovery via gait belt. LTG Duration 10/16/21 - improving (1161') Two Impairment Increased falls risk per Hogan (41/56) and TUG (13.73) scores Short Term Goal (STG) Pt to increase Hogan score by at least 5 points to 46/56 to demonstrate decreased falls risk STG Duration Met Senior Oracle Applications Developer Goal (LTG) Pt to increase Hogan score by at least 5 points to 53/56 to demonstrate decreased falls risk LTG Duration 10/14/20 - improving (52/56) One Impairment Pt does not have an appropriate home exercise program Short Term Goal (STG) Pt to be independent and compliant with an appropriate HEP STG Duration Met Assessment Summary Assessment Pt has largely met or nearly met all goals. TUG score at 10 .03, 6 MWT >1000' /s an assistive device, Hogan and DGI show pt not in an increased falls risk category. The much more difficult FGA does place pt in an increased falls risk, with a 20/30 score, below the cutoff of 22/30. Discussed current level of function with pt, and at this time, pt in comfortable with discharge. Pt understands that she will need a new referral for further physical therapy. Pt is showing significant improvement in all areas, including balance, gait, and LE strength. Pt has become much better with arm swing during gait. Physical Therapy Plan Frequency and Duration Frequency of Treatment 1x/Week Duration of Treatment 1 day Plan of Care Start Date 10/16/21 Plan of Care End Date 10/17/21 Therapeutic Interventions Therapeutic Interventions Aquatic Therapy,Balance Training,Gait Training,Home Exercise Program,Manual Therapy,Neuromuscular Re- education,Patient/Caregiver Education,Self-Care/Home Management,Soft Tissue Mobilization,Therapeutic Exercises Modalities Cold Pack/Ice Massage,Electric Stimulation,Hot Packs Discharge Physical Therapy Discharge Reasons Patient Request Next Visit Focus/Plan Next Note Type Discharge Summary Plan of Care Dates Plan of Care Start Date 10/16/21 Plan of Care End Date 10/17/21 Electronically Signed by: Singh Harris, PT 10/16/21 0041 Please Sign and Return: I have reviewed this Plan of Care and certify that the skilled therapy services above are required to meet the patient?s needs. Physician Signature Date Printed Name and Credentials Clinical Instructor Signature Printed Name and Credentials
== END 2021-10-19 09:11 ==
LOC: PHYS 09:00
PROVIDERS: PCP Family Medicine; Referring Provider Family Medicine; Visit Provider Family Medicine
DX: I63.9 Cerebral infarction, unspecified (principal); R29.898 Other symptoms and signs involving the musculoskeletal system; M62.81 Muscle weakness (generalized); R26.89 Other abnormalities of gait and mobility; R29.6 Repeated falls
CPT/HCPCS: 97014; 97032; 97110; 97112; 97116; 97140; 97161; G0283

== ENCOUNTER → 2021-12-09 15:54 | Outpatient (CLI) | payer MEDICARE, SELFPAY ==
[2020-12-16 06:20] VITALS: BMI 25.4
[2021-12-09 16:35] LABS: Appearance Urine UA CLEAR; Bilirubin Urine UA 2+ (NEGATIVE); Color Urine UA YELLOW; Glucose Urine UA NEGATIVE (Negative); Ketones Urine UA TRACE (NEGATIVE); Leukocyte Esterase Urine UA 2+ (NEGATIVE); Nitrite Urine UA POSITIVE (Negative); Occult Blood Urine UA 3+ (Negative); Protein Urine UA 3+ (Negative); Specific Gravity Urine UA >=1.030 (1.000-1.035); Urobilinogen Urine UA 0.2 E.U./dL (0.2)
[2021-12-09 16:36] LABS: pH Urine UA 6.5 (4.5-8.0)
[2021-12-09 16:40] LABS: Amorphous Sediment Urine 2+; Bacteria Urine Moderate (10-30); Culture Indicated Urine Specimen Cultured; RBC Urine 10-30/HPF (0-5/HPF); WBC Urine 5-10/HPF (0-5/HPF)
[2021-12-09 16:42] LABS: Ictotest Urine Negative (Negative)
== END ==
PROVIDERS: PCP Family Medicine; Referring Provider Family Medicine; Visit Provider Family Medicine
DX: R31.9 Hematuria, unspecified (principal)
CPT/HCPCS: 36415; 81001; 87077; 87086; 87186

== ENCOUNTER → 2021-12-15 08:48 | Outpatient (CLI) | payer MEDICARE, SELFPAY ==
[2020-12-16 06:20] VITALS: BMI 25.4
[2021-12-15 11:13] LABS: Hemoglobin A1C% w Est Avg Glu 6.9 % (4.0-6.0)
[2021-12-15 12:17] LABS: Alanine Aminotransferase 16 IU/L (<35); Albumin 4.3 g/dL (3.5-5.0); Albumin Globulin Ratio 1.9 (1.0-2.8); Alkaline Phosphatase 40 U/L (38-126); Aspartate Aminotransferase 36 IU/L (14-36); BUN Creatinine Ratio 20.3 (6-22); Bilirubin Total 0.6 mg/dL (0.2-1.3); Blood Urea Nitrogen 12 mg/dL (7-17); Calcium 9.6 mg/dL (8.4-10.2); Carbon Dioxide 28 mmol/L (22-32); Chloride 103 mmol/L (98-107); Estimated Glomerular Filt Rate > 60 mL/min (>60); Globulin 2.3 g/dL (1.7-4.1); Glucose 144 mg/dL (80-110); HEMOLYSIS < 15 (0-50); Potassium 4.6 mmol/L (3.4-5.1); Sodium 142 mmol/L (137-145); Total Protein 6.6 g/dL (6.3-8.2)
== END ==
PROVIDERS: PCP Family Medicine; Referring Provider Family Medicine; Visit Provider Family Medicine
DX: E11.9 Type 2 diabetes mellitus without complications (principal)
CPT/HCPCS: 36415; 80053; 83036

== ENCOUNTER → 2021-12-22 15:23 | Outpatient (CLI) | payer MEDICARE, SELFPAY ==
[2020-12-16 06:20] VITALS: BMI 25.4
--- NOTE | 2021-12-22 15:24 | DI.MRI.S_ITS ---
PROCEDURE: MR CERVICAL SPINE WO CON INDICATIONS: neck pain, radiculopathy TECHNIQUE: Noncontrast sagittal T1 spin echo and T2 fast spin echo, sagittal STIR, foraminal oblique sagittal T2 fast spin echo, and axial gradient echo or T2 fast spin echo through the cervical spine. COMPARISON: [facility], CT, CT ANGIO HEAD AND NECK, 12/16/2020, 3:26. [facility], MR, MR THORACIC SPINE WO CON, 12/22/2021, 15:48. FINDINGS: Image quality: This examination is limited by involuntary motion artifact. Alignment and Curvature: There is straightening of the normal cervical lordosis. No focal AP alignment abnormality is seen. Bone Marrow: Marrow demonstrates normal overall signal. Spinal Cord: Visualized spinal cord has normal size and signal. No cerebellar tonsillar herniation. Paraspinous Soft Tissues: No paravertebral masses. Prevertebral soft tissues are normal in thickness. C2-C3: No significant abnormality is seen. C3-C4: The disc height is well-preserved. Loss of disc signal is seen at this level. Mild to moderate disc osteophyte complex is seen, with a central disc osteophyte protrusion, as on series 3, image 16. Mild to moderate facet hypertrophy is seen. There is moderate bilateral neural foraminal narrowing seen. Moderate central canal narrowing is seen. There is associated mass effect upon the ventral spinal cord. C4-C5: The disc height is well-preserved. Loss of disc signal is seen at this level. Mild to moderate disc osteophyte complex is seen. Mild facet joint hypertrophy is seen. There is moderate left-sided and no right-sided neural foraminal narrowing. Mild to moderate central canal narrowing is seen, with mild mass effect upon the ventral spinal cord. C5-C6: Moderate loss of disc height is seen. Loss of disc signal is seen. Moderate disc osteophyte complex is seen, which is eccentric to the right. Mild facet joint hypertrophy is seen. There is moderate to severe bilateral neural foraminal narrowing seen. At least moderate central canal is seen, with associated mass effect upon the ventral spinal cord. C6-C7: Mild loss of disc height is seen. Loss of disc signal is seen. Moderate generalized disc osteophyte complex is seen. Mild to moderate facet hypertrophy is seen. There is moderate to severe bilateral neural foraminal narrowing seen, right worse than left. Mild central canal narrowing is seen. C7-T1: The disc height and disc signal are relatively well preserved. Mild disc osteophyte complex is seen, which is eccentric to the left. There is moderate left-sided and mild right-sided neural foraminal narrowing seen. The central canal is widely patent. IMPRESSION: Multiple levels of cervical spine degenerative change are seen, which are overall worst at the C5-C6 level. Dictated by: Adebayo Montaño M.D. on 12/22/2021 at 15:50 Approved by: Adebayo Montaño M.D. on 12/22/2021 at 15:55
--- NOTE | 2021-12-22 15:24 | DI.MRI.S_ITS ---
PROCEDURE: MR THORACIC SPINE WO CON INDICATIONS: upper back pain TECHNIQUE: Noncontrast sagittal T1 spine echo and T2 fast spin echo, sagittal STIR, axial T1 and T2 fast spin echo through the thoracic spine. COMPARISON: None. FINDINGS: Image quality: Excellent. Alignment and Curvature: There is normal bony alignment. Bone Marrow: Marrow is of normal overall signal. No acute vertebral body compression fractures. Spinal Cord: Visualized spinal cord is normal in size and signal. Paraspinous Soft Tissues: No paravertebral masses. Miscellaneous: There is disc space narrowing and small posterior disc bulges at T6-7, T7-8 and T11-12 resulting in mild central stenosis, but no cord deformation. No paraspinal mass. IMPRESSION: 1. Mild multilevel degenerative disc disease without significant canal stenosis or cord deformation Approved by: Doug Grayson M.D. on 12/22/2021 at 16:32
== END ==
PROVIDERS: PCP Family Medicine; Referring Provider Family Medicine; Visit Provider Family Medicine
DX: M47.22 Other spondylosis with radiculopathy, cervical region; M51.34 Other intervertebral disc degeneration, thoracic region; M54.2 Cervicalgia; R07.89 Other chest pain
CPT/HCPCS: 72141; 72146

== ENCOUNTER 2022-02-18 09:30 | Outpatient (RCR) | payer MEDICARE, OTHER, SELFPAY ==
[2020-12-16 06:20] VITALS: BMI 25.4
--- NOTE | 2021-03-26 15:58 | OT.OP.EVAL ---
Visit Care Team Role Provider Type Xiomara Diego DO Attending Provider Physician Primary Care Provider Referring Provider Specialty: Family Practice Address: [address] [place] [address], [facility], [place], [address] Email: [email or web address] Occupational Therapy Initial Evaluation OT Outpatient Adult Evaluation Start: 03/26/21 15:29 Freq: Status: Active Protocol: Document 03/26/21 15:31 AMS (Rec: 03/26/21 15:58 AMS [id number]) General Information Visit Start Time 12:30 Visit Stop Time 13:23 Total Visit Minutes 53 Visit Number 09/07; 09/16 visits => 20th visit KX modifier Plan of Care Dates 03/26/21-06/18/21 Insurance Information Medicare Treatment Setting Outpatient Care Note Type Initial Evaluation Referring Physician Xiomara Diego MD Reason for Referral CVA Goals Treatment Supine exercises. Functional weight bearing. Instructed in finger tapping w/ wrist in functional position. Short Term Goals 1. 0-100 degrees left active elbow flexion. 2. Avg of 15.0# of force with L nurse ldr dynamometer II strength testing. 3. 0-60 degrees left active shoulder flexion. 4. 0-60 degrees left active shoulder abduction. Shelter Goals 1. Karolina will be modified independent with upper extremity home exercise program utilizing provided written and visual instructions from therapist. 2. Karolina will present with improved functional abilities of the left hand; this will be evidenced by Karolina obtaining a score of 25.0 or less on the QuickDASH UE Outcome Measure. Assessment/Plan Treatment Assessment Patient is a 65 year-old right hand dominant female referred to outpatient OT secondary to thalamic CVA resulting in left sided weakness. PMH: Significant for back pain; diabetes II; neuropathy; stroke/TIA; bilateral rotator cuff tears w/ PT as treatment. Patient had intensive inpatient rehab at [facility] and received HH for 6 weeks. She is using a music glove and home e-stim unit for left upper extremity targeting digit/wrist extension and elbow flex/extension. No h/o brace/sling for L UE. Patient is currently receiving outpatient PT here at [facility]. Patient Goals: Regain independence; increase strength and coordination of the left upper extremity. Evaluation Findings: Patient reportedly resides with spouse and 14 y.o son and receives some assistance w/ UB dressing . No pain was indicated on Pain Assessment Grid relative to distal UEs; however, verbal report of L shoulder pain/ discomfort. QuickDASH UE Outcome Measure Score = 54.55. Patient was ambulated to treatment session utilizing SPC. h/o left sided neglect which has improved per patient . Impaired motor planning of the left upper extremity; able to oppose thumb to 4th digit w/ left hand w/ increased concentration. Able to oppose to all digits of dominant, non -affected right hand. (+) mild edema of L UE. Intrinsic tightness of L hand. 0-45 degrees L sh flex; 0-132 degrees R sh flex; 0-35 degrees L sh ext; 0-60 degrees R sh ext; 0-47 degrees L sh abd; 0-135 degrees R sh abd; 0 -10 degrees L sh ER; 0-65 degrees R sh ER; 0- 90 degrees L elbow flex; 0-140 degrees R elbow flex/ext; WFL bilateral forearm supination and pronation; 0-50 degrees L wrist ext; 0-55 degrees R wrist ext; 0-40 degrees L wrist flex; 0-55 degrees R wrist flex. Bilateral wrist RD /UD WFL. Decreased ROM of the left upper extremity. L UE weakness, including nurse ldr strength. Decreased L scapular mobility. Proximal compensatory strategies w/ L UE movement, tendency towards L sh elevation. Karolina would likely benefit from outpatient OT to address L UE weakness, motor planning, awareness of L UE in space, and functional abilities to support Karolina's success with active participation in meaningful activities in a variety of environments. Comment 12 weeks Comment 1-2 times per week Therapeutic Contents Active Range of Motion, Adaptive Equipment Education, Client Education,Cognitive Skills Development,Functional Activities,Home Exercise Program,Joint Protection, Manual Therapy,Education, Neurodevelopment Treatment, Neuromuscular Re-Education, Self-Care,Stretching/ Flexibility Activities, Therapeutic Activities, Therapeutic Exercises, Modalities Modalities As Needed,As Prescribed Types of Modalities E-Stim Additional Types of Modalities Heat/Cold
--- NOTE | 2021-03-30 15:53 | OT.OP.TRT ---
Visit Care Team Role Provider Type Xiomara Diego DO Attending Provider Physician Primary Care Provider Referring Provider Specialty: Family Practice Address: [address] [place] [address], [place], [address] Email: [email or web address] Occupational Therapy Treatment Note OT Outpatient Treatment Note - Adult Start: 03/26/21 15:29 Freq: Status: Active Protocol: Document 03/30/21 15:42 AMS (Rec: 03/30/21 15:52 AMS [id number]) OT Outpatient Adult Treatment Note Session Time Visit Start Time 14:30 Visit Stop Time 15:25 Total Visit Minutes 55 Visit Information Visit Number 09/07; 09/16 visits => 20th visit KX modifier Plan of Care Dates 03/26/21-06/18/21 Insurance Information Medicare Setting Treatment Setting Outpatient Care Visit Type Note Type Treatment Note General Information General Information Patient is a 65 year-old right hand dominant female referred to outpatient OT secondary to thalamic CVA resulting in left sided weakness. PMH: Significant for back pain; diabetes II; neuropathy; stroke/TIA; bilateral rotator cuff tears w/ PT as treatment. - Subjective Identification Type Name Identification Reconciled With Medical Record Observations It is much easier to do the exercises laying down per Karolina. Patient/Caregiver Compliance with Home Good Exercise Program - Objective Objective Measurements Please refer to below for progress towards meeting established OT goals. Short Term Goals 1. 0-100 degrees left active elbow flexion. 2. Avg of 15.0# of force with L staff radiographer dynamometer II strength testing. 3. 0-60 degrees left active shoulder flexion. 4. 0-60 degrees left active shoulder abduction. Penitentiary Goals 1. Karolina will be modified independent with upper extremity home exercise program utilizing provided written and visual instructions from therapist. 2. Karolina will present with improved functional abilities of the left hand; this will be evidenced by Karolina obtaining a score of 25.0 or less on the QuickDASH UE Outcome Measure. - Treatment 2 Descriptor Object manipulation. Medium/large peg rotation into pegboard. Backwards translation x 2 => container. Resistant clothespins. Lateral desir pinch removal. 1 Descriptor UE weight bearing. Trunk flexion/ext at EOM. Trunk ext at EOM. L <-> R hand. Orientation to midline. Exercises 4 Descriptor Wall. Standing. 2-handed approach needed. 3 Descriptor Sidelying. ER. 2 x 15 reps. Sh hor abd. 2 x 15 reps. Min tactile cues guidance. 2 Descriptor Supine. Chest press. 1# ankle weight. 2 x 15 reps. Sh flex. 2 x 15 reps. Min tactile cues guidance. Small circles (CW, CCW). Figure 8s (CW, CCW). 1 Descriptor UEB. x 5 minutes. Bilateral. Seated. - Assessment Assessment of Improvement Patient verbalized concern re: gap in treatment d/t therapist being out of the clinic; discussed importance of completing supine exercises at home when therapist was out of the clinic, as well as other exercises. Upgraded UE exercises. Tendency towards L sh elevation when seated when utilizing the L hand. Increased tolerance for weight bearing w/ seated trunk flex/ ext at EOM and functional transition from sidelying to upright sitting compared to time of initial evaluation. However, decreased orientation to midline and concern re: potential for loss of balance when weight shifting predominantly to the left and/ or w/ trunk ext. (+) edema present of distal UE. Karolian would likely benefit from outpatient OT to address L UE weakness, motor planning, awareness of L UE in space, and functional abilities to support Karolina's success with active participation in meaningful activities in a variety of environments. - Plan Therapy Recommendations Continue with Current Program, Advance per Rehabilitation Protocol
--- NOTE | 2021-04-02 12:17 | OT.OP.TRT ---
Visit Care Team Role Provider Type Xiomara Diego DO Attending Provider Physician Primary Care Provider Referring Provider Specialty: Family Practice Address: [address] [place] [address], [place], [address] Email: [email or web address] Occupational Therapy Treatment Note OT Outpatient Treatment Note - Adult Start: 03/26/21 15:29 Freq: Status: Active Protocol: Document 04/02/21 12:07 AMS (Rec: 04/02/21 12:16 AMS [id number]) OT Outpatient Adult Treatment Note Session Time Visit Start Time 07:30 Visit Stop Time 08:25 Total Visit Minutes 55 Visit Information Visit Number 10/08; 10/17 visits => 20th visit KX modifier Plan of Care Dates 03/26/21-06/18/21 Insurance Information Medicare Setting Treatment Setting Outpatient Care Visit Type Note Type Treatment Note General Information General Information Patient is a 65 year-old right hand dominant female referred to outpatient OT secondary to thalamic CVA resulting in left sided weakness. PMH: Significant for back pain; diabetes II; neuropathy; stroke/TIA; bilateral rotator cuff tears w/ PT as treatment. - Subjective Identification Type Name Identification Reconciled With Medical Record Observations I don't know why this arm is shaking so much today per Karolina. Patient/Caregiver Compliance with Home Good Exercise Program - Objective Objective Measurements Please refer to below for progress towards meeting established OT goals. Short Term Goals 1. 0-100 degrees left active elbow flexion. 2. Avg of 15.0# of force with L fiberglass auto body repairer dynamometer II strength testing. 3. 0-60 degrees left active shoulder flexion. 4. 0-60 degrees left active shoulder abduction. Half-Way Goals 1. Karolina will be modified independent with upper extremity home exercise program utilizing provided written and visual instructions from therapist. 2. Karolina will present with improved functional abilities of the left hand; this will be evidenced by Karolina obtaining a score of 25.0 or less on the QuickDASH UE Outcome Measure. - Treatment 2 Descriptor Object manipulation. Resistant clothespins. Lateral desir pinch removal. Metal rings. Wood tree to left of body. 1 Descriptor UE weight bearing. Trunk flexion/ext at EOM. Trunk ext at EOM. L <-> R hand. Orientation to midline. Forearm prone. Quadriped. Exercises 8 Descriptor Seated alt punches. TB #1. 2 x 10 reps. Theraband positioned around back. 7 Descriptor Prone. Sh hor abd. 1 x 15 reps. CGA to min phys assist. 6 Descriptor Strengthening of fiberglass auto body repairer. Grasp and release. L hand. 2.2 # spherical ball. 2 x 15 reps. 5 Descriptor Forearm supination. 2.2# weighted ball. 1 x 15 reps. 4 Descriptor Wall. Standing. 2-handed approach needed. 3 Descriptor Sidelying. ER. 1# ankle weight. 2 x 15 reps. Sh hor abd. 2 x 15 reps. Min tactile cues guidance. 2 Descriptor Supine. Chest press. 2# ankle weight. 2 x 15 reps. Sh flex. 2 x 15 reps. Min tactile cues guidance. Elbow flex/ext. 2# ankle weight. 2 x 15 reps. Elbow ext. 1# ankle weight. 2 x 15 reps. Min tactile assist - 'skull weigher and crusher' 1 Descriptor UEB. x 5 minutes. Bilateral. Seated. - Assessment Assessment of Improvement Upgraded UE exercises. Tendency towards L sh elevation when seated when utilizing the L hand. (+) proximal compensatory strategies observed with use of the left UE. Improving tolerance for weight bearing; however, decreased ability to maintain left elbow extension in different positions ( standing at wall/quadriped). ( +) edema present of distal UE. Decreased ability to position hand in space to support functional incorporation of the upper extremity d/t motor planning difficulties and weakness. Karolina would likely benefit from outpatient OT to address L UE weakness, motor planning, awareness of L UE in space, and functional abilities to support Karolina's success with active participation in meaningful activities in a variety of environments. Home Exercise Program Provided with TB #1. Recommended completing 1 set of 10 repetitions of alt punches (replicating functional reaching against resistance) up to 3 x per day. Practiced exercise in treatment session. Karolina denied need for written and/or visual instructions to support carry-over of this exercise. - Plan Therapy Recommendations Continue with Current Program, Advance per Rehabilitation Protocol
--- NOTE | 2021-04-07 12:01 | OT.OP.TRT ---
Visit Care Team Role Provider Type Xiomara Diego DO Attending Provider Physician Primary Care Provider Referring Provider Specialty: Family Practice Address: [address] [place] [address], [place], [address] Email: [email or web address] Occupational Therapy Treatment Note OT Outpatient Treatment Note - Adult Start: 03/26/21 15:29 Freq: Status: Active Protocol: Document 04/07/21 11:53 AMS (Rec: 04/07/21 12:01 AMS [id number]) OT Outpatient Adult Treatment Note Session Time Visit Start Time 07:30 Visit Stop Time 08:25 Total Visit Minutes 55 Visit Information Visit Number 11/05; 11/14 visits => 20th visit KX modifier Plan of Care Dates 03/26/21-06/18/21 Insurance Information Medicare Setting Treatment Setting Outpatient Care Visit Type Note Type Treatment Note General Information General Information Patient is a 65 year-old right hand dominant female referred to outpatient OT secondary to thalamic CVA resulting in left sided weakness. PMH: Significant for back pain; diabetes II; neuropathy; stroke/TIA; bilateral rotator cuff tears w/ PT as treatment. - Subjective Identification Type Name Identification Reconciled With Medical Record Observations This shoulder hurts. If it didn't hurt so much I would probably use it more per Karolina . Patient/Caregiver Compliance with Home Good Exercise Program - Objective Objective Measurements Please refer to below for progress towards meeting established OT goals. Short Term Goals 1. 0-100 degrees left active elbow flexion. 2. Avg of 15.0# of force with L wheel presser dynamometer II strength testing. 3. 0-60 degrees left active shoulder flexion. 4. 0-60 degrees left active shoulder abduction. Nursing Center Tutor Goals 1. Karolina will be modified independent with upper extremity home exercise program utilizing provided written and visual instructions from therapist. 2. Karolina will present with improved functional abilities of the left hand; this will be evidenced by Karolina obtaining a score of 25.0 or less on the QuickDASH UE Outcome Measure. - Treatment 2 Descriptor Object manipulation. Resistant clothespins. Lateral desir pinch removal. Metal rings. Wood tree to left of body. 1 Descriptor UE weight bearing. Trunk flexion/ext at EOM. Trunk ext at EOM. L <-> R hand. Orientation to midline. Forearm prone. Quadriped. Exercises 8 Descriptor Seated alt punches. TB #1. 2 x 10 reps. Theraband positioned around back. 7 Descriptor Prone. Sh hor abd. 3x10 . CGA to min phys assist. 6 Descriptor Strengthening of wheel presser. Grasp and release. L hand. 2.2 # spherical ball. 2 x 15 reps. 5 Descriptor Forearm supination. 2.2# weighted ball. 1 x 15 reps. 4 Descriptor UE ROM. Upper trap stretch. Pec stretch. Manual/ROM by therapist L UE. 3 Descriptor Sidelying. ER. 1# ankle weight. 3x10. Sh hor abd. 3x10. Min tactile cues guidance. 2 Descriptor Supine. Chest press. 2# ankle weight. 3x10. Sh flex. 3x10. Min tactile cues guidance. Elbow flex/ext. 2# ankle weight. 3x10. Elbow ext. 1# ankle weight. 3x10. Min tactile assist - ' skull master baker' 1 Descriptor Arm pulleys. x 5 minutes. Bilateral. Seated. - Assessment Assessment of Improvement c/o L shoulder pain/discomfort of anterior and posterior regions. Verbalization of frustration re: shakiness with movement/motor planning of the L UE. Impaired posture; L sh elevation and slight IR of L UE when seated/standing. Tendency towards sh elevation with movement of UE against gravity; blocking provided supine to discourage compensatory pattern. (+) edema present of distal UE. Decreased ability to position hand in space to support functional incorporation of the upper extremity d/t motor planning difficulties and weakness. Instruction in stretches and posiitoning of UE w/ recommended carry-over into the home. Karolina would likely benefit from outpatient OT to address L UE weakness, motor planning, awareness of L UE in space, and functional abilities to support Karolina's success with active participation in meaningful activities in a variety of environments. Home Exercise Program Instructed in upper trap stretch w/ grasping of surface /edge with left hand and pec stretch supine w/ 't' pose. Education re: positioning of the UE away from body and to the left and assist of the right hand as needed. Karolina denied questions. - Plan Therapy Recommendations Continue with Current Program, Advance per Rehabilitation Protocol
--- NOTE | 2021-04-09 10:11 | OT.OP.TRT ---
Visit Care Team Role Provider Type Xiomara Diego DO Attending Provider Physician Primary Care Provider Referring Provider Specialty: Family Practice Address: [address] [place] [address], [place], [address] Email: [email or web address] Occupational Therapy Treatment Note OT Outpatient Treatment Note - Adult Start: 03/26/21 15:29 Freq: Status: Active Protocol: Document 04/09/21 10:03 AMS (Rec: 04/09/21 10:11 AMS [id number]) OT Outpatient Adult Treatment Note Session Time Visit Start Time 07:30 Visit Stop Time 08:25 Total Visit Minutes 55 Visit Information Visit Number 12/06; 12/15 visits => 20th visit KX modifier Plan of Care Dates 03/26/21-06/18/21 Insurance Information Medicare Setting Treatment Setting Outpatient Care Visit Type Note Type Treatment Note General Information General Information Patient is a 65 year-old right hand dominant female referred to outpatient OT secondary to thalamic CVA resulting in left sided weakness. PMH: Significant for back pain; diabetes II; neuropathy; stroke/TIA; bilateral rotator cuff tears w/ PT as treatment. - Subjective Identification Type Name Identification Reconciled With Medical Record Observations I have been trying to use this arm more per Karolina. I don't know what you did the last time but this shoulder is definitely feeling better per Karolina. Patient/Caregiver Compliance with Home Good Exercise Program - Objective Objective Measurements Please refer to below for progress towards meeting established OT goals. Short Term Goals 1. 0-100 degrees left active elbow flexion. 2. Avg of 15.0# of force with L primer powder blender wet dynamometer II strength testing. 3. 0-60 degrees left active shoulder flexion. 4. 0-60 degrees left active shoulder abduction. Position Clerk Goals 1. Karolina will be modified independent with upper extremity home exercise program utilizing provided written and visual instructions from therapist. 2. Karolina will present with improved functional abilities of the left hand; this will be evidenced by Karolina obtaining a score of 25.0 or less on the QuickDASH UE Outcome Measure. - Treatment 1 Descriptor UE weight bearing. Trunk flexion/ext at EOM. Trunk ext at EOM. L <-> R hand. Orientation to midline. Exercises 7 Descriptor Prone. Sh hor abd. 3x10 . CGA to min phys assist. 6 Descriptor Strengthening of primer powder blender wet. Grasp and release. L hand. 3.3 # spherical ball. 3x10. 5 Descriptor Forearm supination. 2.2# weighted ball. 2x10 reps. 4 Descriptor UE ROM. Upper trap stretch. Pec stretch. Manual/ROM by therapist L UE. 3 Descriptor Sidelying. ER. 1# ankle weight. 3x10. 2 Descriptor Supine. Chest press cane. 3# ankle weight. 3x10. Sh flex cane. 2# ankle weight. 3x10. Elbow flex/ext. 2# weight. 3x10. Elbow ext. 2# ankle weight. 3x10. Min tactile assist - ' skull cinder crusher operator' Sh abd. 3x10. Hor sh abd and ER. 3x10. CGA to min tactile assist. 1 Descriptor UBE. x 5 minutes. Bilateral. Seated. - Assessment Assessment of Improvement Report of reduction in L sh pain/discomfort since last treatment session. Improving awareness and adjustments being made to sitting and standing posture relative to positioning of the L UE; continued need to attend to L sh elevation and slight IR of L UE when seated/standing. Tendency towards sh elevation with movement of UE against gravity. (+) edema present of distal UE. Decreased ability to position hand in space to support functional incorporation of the upper extremity d/t motor planning difficulties and weakness. Able to upgrade exercises within session. Karolina would likely benefit from outpatient OT to address L UE weakness, motor planning, awareness of L UE in space, and functional abilities to support Karolina's success with active participation in meaningful activities in a variety of environments. Home Exercise Program Instructed in upper trap stretch w/ grasping of surface /edge with left hand and pec stretch supine w/ 't' pose. Provided with written and visual instuctions for these exercises. Karolina denied questions. - Plan Therapy Recommendations Continue with Current Program, Advance per Rehabilitation Protocol
--- NOTE | 2021-05-06 11:38 | OT.OP.TRT ---
Visit Care Team Role Provider Type Xiomara Diego DO Attending Provider Physician Primary Care Provider Referring Provider Specialty: Family Practice Address: [address] [place] [address], [place], [address] Email: [email or web address] Occupational Therapy Treatment Note OT Outpatient Treatment Note - Adult Start: 03/26/21 15:29 Freq: Status: Active Protocol: Document 05/06/21 11:30 AMS (Rec: 05/06/21 11:37 AMS [id number]) OT Outpatient Adult Treatment Note Session Time Visit Start Time 07:30 Visit Stop Time 08:25 Total Visit Minutes 55 Visit Information Visit Number 01/05; 01/14 visits => 20th visit KX modifier Plan of Care Dates 03/26/21-06/18/21 Insurance Information Medicare Setting Treatment Setting Outpatient Care Visit Type Note Type Treatment Note General Information General Information Patient is a 65 year-old right hand dominant female referred to outpatient OT secondary to thalamic CVA resulting in left sided weakness. PMH: Significant for back pain; diabetes II; neuropathy; stroke/TIA; bilateral rotator cuff tears w/ PT as treatment. - Subjective Identification Type Name Identification Reconciled With Medical Record Observations I have been trying to use this arm more. It still hurts per Karolina. Patient/Caregiver Compliance with Home Good Exercise Program - Objective Objective Measurements Please refer to below for progress towards meeting established OT goals. Short Term Goals 1. 0-100 degrees left active elbow flexion. 2. Avg of 15.0# of force with L quality control tester dynamometer II strength testing. 3. 0-60 degrees left active shoulder flexion. 4. 0-60 degrees left active shoulder abduction. Custodial Goals 1. Karolina will be modified independent with upper extremity home exercise program utilizing provided written and visual instructions from therapist. 2. Karolina will present with improved functional abilities of the left hand; this will be evidenced by Karolina obtaining a score of 25.0 or less on the QuickDASH UE Outcome Measure. - Treatment 2 Descriptor Functional movement patterns. 1 Descriptor UE weight bearing. Trunk flexion/ext at EOM. Trunk ext at EOM. L <-> R hand. Orientation to midline. Exercises 6 Descriptor Strengthening of quality control tester. Grasp and release. L hand. 4.4 # spherical ball. 3x10. 5 Descriptor Forearm supination. 2.2# weighted ball. 2x10 reps. 4 Descriptor UE ROM. Upper trap stretch. Pec stretch. Manual/ROM by therapist L UE. Seated. Towel slide. Mat. 3 Descriptor Sidelying. ER. 1# ankle weight. 3x10. 2 Descriptor Supine. Chest press cane. 4# ankle weight. 3x10. Sh flex cane. ROM. 3x10. Elbow flex/ext. 2# weight. 3x10. Elbow ext. 2# ankle weight. 3x10. Min tactile assist - ' skull law tutor' Sh abd. 3x10. Hor sh abd and ER. 3x10. Blocking at elbow. 1 Descriptor UBE. x 5 minutes. Bilateral. Seated. - Assessment Assessment of Improvement Report of left shoulder pain impacting functional/daily incorporation. Report of passive stretches and functional incorporation versus cane based exercies/ROM stretches as recommended. Tendency towards sh elevation with movement of UE against gravity. (+) edema present of distal UE. Able to upgrade exercises within session; increased resistance. Tightness of anterior chest. Karolina would likely benefit from outpatient OT to address L UE weakness, motor planning, awareness of L UE in space, and functional abilities to support Karolina's success with active participation in meaningful activities in a variety of environments. Home Exercise Program Reviewed importance of stretches. Education re: isolated movements of UE. - Plan Therapy Recommendations Continue with Current Program, Advance per Rehabilitation Protocol
--- NOTE | 2021-05-08 15:39 | OT.OP.TRT ---
Visit Care Team Role Provider Type Xiomara Diego DO Attending Provider Physician Primary Care Provider Referring Provider Specialty: Family Practice Address: [address] [place] [address], [place], [address] Email: [email or web address] Occupational Therapy Treatment Note OT Outpatient Treatment Note - Adult Start: 03/26/21 15:29 Freq: Status: Active Protocol: Document 05/08/21 15:36 AMS (Rec: 05/08/21 15:39 AMS [id number]) OT Outpatient Adult Treatment Note Session Time Visit Start Time 12:30 Visit Stop Time 13:25 Visit Information Visit Number 02/05; 02/14 visits => 20th visit KX modifier Plan of Care Dates 03/26/21-06/18/21 Insurance Information Medicare Setting Treatment Setting Outpatient Care Visit Type Note Type Treatment Note General Information General Information Patient is a 65 year-old right hand dominant female referred to outpatient OT secondary to thalamic CVA resulting in left sided weakness. PMH: Significant for back pain; diabetes II; neuropathy; stroke/TIA; bilateral rotator cuff tears w/ PT as treatment. - Subjective Identification Type Name Identification Reconciled With Medical Record Observations I am having trouble carrying things in this hand per Karolina. Patient/Caregiver Compliance with Home Good Exercise Program - Objective Objective Measurements Please refer to below for progress towards meeting established OT goals. Short Term Goals 1. 0-100 degrees left active elbow flexion. 2. Avg of 15.0# of force with L reverser dynamometer II strength testing. 3. 0-60 degrees left active shoulder flexion. 4. 0-60 degrees left active shoulder abduction. Fpc Goals 1. Karolina will be modified independent with upper extremity home exercise program utilizing provided written and visual instructions from therapist. 2. Karolina will present with improved functional abilities of the left hand; this will be evidenced by Karolina obtaining a score of 25.0 or less on the QuickDASH UE Outcome Measure. - Treatment 2 Descriptor Functional movement patterns. 1 Descriptor UE weight bearing. Trunk flexion/ext at EOM. Trunk ext at EOM. L <-> R hand. Orientation to midline. Exercises 6 Descriptor Strengthening of reverser. Grasp and release. L hand. 3.3 # spherical ball. 1x10. Transferring from mat <-> TT. 4 Descriptor UE ROM. Upper trap stretch. Pec stretch. Manual/ROM by therapist L UE. Seated. Towel slide. Mat. 3 Descriptor Sidelying. ER. 1# ankle weight. 3x10. 2 Descriptor Supine. Chest press cane. 4# ankle weight. 3x10. Sh flex cane. ROM. 3x10. Elbow flex/ext. 2# weight. 3x10. Elbow ext. 2# ankle weight. 3x10. Min tactile assist - ' skull continuous crusher operator' Sh abd. 3x10. Hor sh abd and ER. 3x10. Blocking at elbow. 1 Descriptor UBE. x 5 minutes. Bilateral. Seated. - Assessment Assessment of Improvement Report of left shoulder pain impacting functional/daily incorporation. Tendency towards sh elevation with movement of UE against gravity and/or increased effort. (+) edema present of distal UE. Tightness of anterior chest. Need to address weakness to support functional movement patterns of UE. Karolina would likely benefit from outpatient OT to address L UE weakness, motor planning, awareness of L UE in space, and functional abilities to support Karolina's success with active participation in meaningful activities in a variety of environments. Home Exercise Program Reviewed importance of stretches. - Plan Therapy Recommendations Continue with Current Program, Advance per Rehabilitation Protocol
--- NOTE | 2021-05-11 11:52 | OT.OP.TRT ---
Visit Care Team Role Provider Type Xiomara Diego DO Attending Provider Physician Primary Care Provider Referring Provider Specialty: Family Practice Address: [address] [place] [address], [id number] Email: [email or web address] Occupational Therapy Treatment Note OT Outpatient Treatment Note - Adult Start: 03/26/21 15:29 Freq: Status: Active Protocol: Document 05/11/21 11:47 AMS (Rec: 05/11/21 11:52 AMS [id number]) OT Outpatient Adult Treatment Note Session Time Visit Start Time 09:30 Visit Stop Time 10:25 Total Visit Minutes 55 Visit Information Visit Number 03/07; 03/16 visits => 20th visit KX modifier Plan of Care Dates 03/26/21-06/18/21 Insurance Information Medicare Setting Treatment Setting Outpatient Care Visit Type Note Type Treatment Note General Information General Information Patient is a 65 year-old right hand dominant female referred to outpatient OT secondary to thalamic CVA resulting in left sided weakness. PMH: Significant for back pain; diabetes II; neuropathy; stroke/TIA; bilateral rotator cuff tears w/ PT as treatment. - Subjective Identification Type Name Identification Reconciled With Medical Record Observations I don't think I could have done that before per Karolina. Patient/Caregiver Compliance with Home Good Exercise Program - Objective Objective Measurements Please refer to below for progress towards meeting established OT goals. Short Term Goals 1. 0-100 degrees left active elbow flexion. 2. Avg of 15.0# of force with L yarn hauler dynamometer II strength testing. 3. 0-60 degrees left active shoulder flexion. 4. 0-60 degrees left active shoulder abduction. Calendar Control Clerk Blood Bank Goals 1. Karolina will be modified independent with upper extremity home exercise program utilizing provided written and visual instructions from therapist. 2. Karolina will present with improved functional abilities of the left hand; this will be evidenced by Karolina obtaining a score of 25.0 or less on the QuickDASH UE Outcome Measure. - Treatment 2 Descriptor Functional movement patterns. 1 Descriptor UE weight bearing. Trunk flexion/ext at EOM. Trunk ext at EOM. L <-> R hand. Orientation to midline. Exercises 6 Descriptor Strengthening of yarn hauler. Grasp and release. L hand. 3.3 # spherical ball. 1x10. Transferring from mat <-> TT. 4 Descriptor UE ROM. Upper trap stretch. Pec stretch. Manual/ROM by therapist L UE. Seated. Towel slide. Mat. Black bolster angle. Slide. 3x10. 3 Descriptor Sidelying. ER. 1# ankle weight. 3x10. 2 Descriptor Supine. Chest press. 2# ankle weight. 1x10. 1# ankle weight. 2x10. Sh flex. CGA to assist w/ motor planning. 3x10. Elbow flex/ext. 3# weight. 3x10. CGA to assist w/ motor planning. Elbow ext. 2# ankle weight. 3x10. Min tactile assist - ' skull crusher foreman' Sh abd. 3x10. Hor sh abd and ER. 1# ankle weight. 3x10. Blocking at elbow. 1 Descriptor UBE. x 5 minutes. Bilateral. Seated. - Assessment Assessment of Improvement Report of left shoulder pain impacting functional/daily incorporation of the hand/ upper extremity. Tendency towards sh elevation with movement of L UE against gravity and/or increased effort; decreased compensatory pattern observed when exercise/activity completed bimanually (for instance, observed w/ angled surface of black bolster). (+) edema present of distal UE. Tightness of anterior chest. Need to address weakness to support functional movement patterns of UE. Upgraded some of L UE exercises. Karolina would likely benefit from outpatient OT to address L UE weakness, motor planning, awareness of L UE in space, and functional abilities to support Karolina's success with active participation in meaningful activities in a variety of environments. Home Exercise Program Reviewed importance of stretches. - Plan Therapy Recommendations Continue with Current Program, Advance per Rehabilitation Protocol
--- NOTE | 2021-05-13 08:53 | OT.OP.TRT ---
Visit Care Team Role Provider Type Xiomara Diego DO Attending Provider Physician Primary Care Provider Referring Provider Specialty: Family Practice Address: [address] [place] [address], [place], [address] Email: [email or web address] Occupational [email or web address] Note OT Outpatient Treatment Note - Adult Start: 03/26/21 15:29 Freq: Status: Active Protocol: Document 05/13/21 08:42 AMS (Rec: 05/13/21 08:53 AMS [id number]) OT Outpatient Adult Treatment Note Session Time Visit Start Time 07:30 Visit Stop Time 08:25 Total Visit Minutes 55 Visit Information Visit Number 04/07; 04/16 visits => 20th visit KX modifier Plan of Care Dates 03/26/21-06/18/21 Insurance Information Medicare Setting Treatment Setting Outpatient Care Visit Type Note Type Treatment Note General Information General Information Patient is a 65 year-old right hand dominant female referred to outpatient OT secondary to thalamic CVA resulting in left sided weakness. PMH: Significant for back pain; diabetes II; neuropathy; stroke/TIA; bilateral rotator cuff tears w/ PT as treatment. - Subjective Identification Type Name Identification Reconciled With Medical Record Observations I was working on this one at home per Karolina in re: wall arm exercise. Patient/Caregiver Compliance with Home Good Exercise Program - Objective Objective Measurements Please refer to below for progress towards meeting established OT goals. Short Term Goals 1. 0-100 degrees left active elbow flexion. 2. Avg of 15.0# of force with L stator tester dynamometer II strength testing. 3. 0-60 degrees left active shoulder flexion. 4. 0-60 degrees left active shoulder abduction. Longterm Goals 1. Karolina will be modified independent with upper extremity home exercise program utilizing provided written and visual instructions from therapist. 2. Karolina will present with improved functional abilities of the left hand; this will be evidenced by Karolina obtaining a score of 25.0 or less on the QuickDASH UE Outcome Measure. - Treatment 2 Descriptor Functional movement patterns. 1 Descriptor UE weight bearing. Trunk flexion/ext at EOM. Trunk ext at EOM. L <-> R hand. Orientation to midline. Exercises 4 Descriptor UE ROM. Upper trap stretch. Pec stretch. Manual/ROM by therapist L UE. Black bolster angle. Seated. 2x10. Green Bolster. 1x10. 3 Descriptor Sidelying. ER. 1# ankle weight. 3x10. 2 Descriptor Supine. Chest press. 2# ankle weight. 2x10. 1# ankle weight. 1x10. Sh flex. Blocking at shoulder - prevention of sh elevation. 3x10. Elbow flex/ext. 3# weight. 3x10. CGA to assist w/ motor planning. Elbow ext. 2# ankle weight. 3x10. Min tactile assist - ' skull narrow gauge engineer' Sh abd. 1# ankle weight. 3x10. Hor sh abd and ER. 1# ankle weight. 3x10. Blocking at elbow. ER. 1# ankle weight. 3x10. Blocking provided. 1 Descriptor UEB. x 5 minutes. Bilateral. Seated. - Assessment Assessment of Improvement Continued tendency towards sh elevation with movement of L UE against gravity and/or increased effort. Decreased compensatory pattern observed when exercise/activity completed bimanually in sitting w/ utilization of surface. Mild edema present in upper extremity; decrease in edema since time of evaluation . Tightness of anterior chest. Able to upgrade some of the strengthening and ROM exercises; this suggests improving strength of the UE. However, weakness continues to impact ability to utilize UE in day-to-day life and leads to increased effort w/ compensatory strategies. Decreased wrist/digit strength ; unable ot execute ball taps w/ tennis ball and/or 3 and 1/ -inch ball with fingers with wrist in extension. Unable to execute finger walking with ROM w/ flat surface. Need to incorporate wrist/digit ext strengthening exercises/ vertical surfaces w/ object manipulation to support functional strengthening. Karolina would likely benefit from outpatient OT to address L UE weakness, motor planning, awareness of L UE in space, and functional abilities to support Karolina's success with active participation in meaningful activities in a variety of environments. Home Exercise Program Education re: wrist/digit ext weakness. Discussed activities that can be completed in the home to support strengthening of the wrist/digit, including positioning of wrist in ext w/ utilization of music glove. - Plan Therapy Recommendations Continue with Current Program, Advance per Rehabilitation Protocol
--- NOTE | 2021-05-20 11:32 | OT.OP.TRT ---
Visit Care Team Role Provider Type Xiomara Diego DO Attending Provider Physician Primary Care Provider Referring Provider Specialty: Family Practice Address: [address] [place] [address], [place], [address] Email: [email or web address] Occupational Therapy Treatment Note OT Outpatient Treatment Note - Adult Start: 03/26/21 15:29 Freq: Status: Active Protocol: Document 05/20/21 11:22 AMS (Rec: 05/20/21 11:32 AMS [id number]) OT Outpatient Adult Treatment Note Session Time Visit Start Time 07:30 Visit Stop Time 08:25 Total Visit Minutes 55 Visit Information Visit Number 05/08; 05/17 visits => 20th visit KX modifier Plan of Care Dates 03/26/21-06/18/21 Insurance Information Medicare Setting Treatment Setting Outpatient Care Visit Type Note Type Treatment Note General Information General Information Patient is a 65 year-old right hand dominant female referred to outpatient OT secondary to thalamic CVA resulting in left sided weakness. PMH: Significant for back pain; diabetes II; neuropathy; stroke/TIA; bilateral rotator cuff tears w/ PT as treatment. - Subjective Identification Type Name Identification Reconciled With Medical Record Observations It started yesterday. I just started feeling wobbly and a little weak per Karolina. Patient/Caregiver Compliance with Home Good Exercise Program - Objective Objective Measurements Please refer to below for progress towards meeting established OT goals. Short Term Goals 1. 0-100 degrees left active elbow flexion. 2. Avg of 15.0# of force with L dry sander dynamometer II strength testing. 3. 0-60 degrees left active shoulder flexion. 4. 0-60 degrees left active shoulder abduction. Correction Goals 1. Karolina will be modified independent with upper extremity home exercise program utilizing provided written and visual instructions from therapist. 2. Karolina will present with improved functional abilities of the left hand; this will be evidenced by Karolina obtaining a score of 25.0 or less on the QuickDASH UE Outcome Measure. - Treatment 2 Descriptor Functional movement patterns. 1 Descriptor UE weight bearing. Trunk flexion/ext at EOM. Trunk ext at EOM. L <-> R hand. Orientation to midline. Exercises 4 Descriptor UE ROM. Upper trap stretch. Pec stretch. Manual/ROM by therapist L UE. Black bolster angle. Seated. 2x10. Green Bolster. 1x10. 2 Descriptor Supine. Chest press. 1# ankle weight. 3x10. Sh flex. Blocking at shoulder - prevention of sh elevation. 3x10. Elbow flex/ext. 4# weight. 3x10. CGA to assist w/ motor planning. Elbow ext. 2# ankle weight. 3x10. Min tactile assist - ' skull algologist' Sh abd. 1# ankle weight. 3x10. Hor sh abd and ER. 1# ankle weight. 3x10. Blocking at elbow. ER. 1# ankle weight. 3x10. Blocking provided. 1 Descriptor Arm pulleys. x 5 minutes. Bilateral. Seated. - Assessment Assessment of Improvement Continued tendency towards sh elevation with movement of L UE against gravity and/or increased effort. Tightness of anterior chest. Need to reduce resistance with some of the exercises completed supine; introduced arm pulleys seated w/ sh flex and sh abd. Recommended that Karolina consider investing in personal arm pulleys for use in the home with anchoring of the pulleys via door while seated. Improved finger walking w/ wall walks on vertical surface ; introduced single rubberband for strengthening of digits into extension. Provided single rubberband to support carry-over of this exercise. Karolina would likely benefit from outpatient OT to address L UE weakness, motor planning, awareness of L UE in space, and functional abilities to support Karolina's success with active participation in meaningful activities in a variety of environments. Home Exercise Program Single rubberband w/ digit strengthening. Discussion re: personal investment in arm pulleys for home use. - Plan Therapy Recommendations Continue with Current Program, Advance per Rehabilitation Protocol
--- NOTE | 2021-05-22 11:53 | OT.OPPN ---
Current Diagnoses Cerebral infarction, unspecified (05/22/21) Other symptoms and signs involving the musculoskeletal system (05/22/21) OT Progress Note OT Outpatient Treatment Note - Adult Start: 03/26/21 15:29 Freq: Status: Active Protocol: Document 05/22/21 11:36 AMS (Rec: 05/22/21 11:53 AMS [id number]) OT Outpatient Adult Treatment Note Session Time Visit Start Time 09:30 Visit Stop Time 10:25 Total Visit Minutes 55 Visit Information Visit Number 09/07; 06/16 visits => 20th visit KX modifier Plan of Care Dates 05/22/21-08/14/21 Insurance Information Medicare Setting Treatment Setting Outpatient Care Visit Type Note Type Progress Note General Information General Information Patient is a 65 year-old right hand dominant female referred to outpatient OT secondary to thalamic CVA resulting in left sided weakness. PMH: Significant for back pain; diabetes II; neuropathy; stroke/TIA; bilateral rotator cuff tears w/ PT as treatment. - Subjective Identification Type Name Identification Reconciled With Medical Record Observations I am going to [place] to see my grandchildren. I am going with my sister per Karolina . Patient/Caregiver Compliance with Home Good Exercise Program - Objective Objective Measurements Please refer to below for progress towards meeting established OT goals. Short Term Goals 1. 0-100 degrees active left shoulder flexion. 05/22/21 = GOAL UPGRADED 2. 0-90 degrees active left shoulder abduction. 05/22/21 = GOAL UPGRADED 3. 0-30 degrees active left shoulder ER. 05/22/21 = NEW GOAL GOALS MET 0-100 degrees left active elbow flexion. *MET 05/22/21 0- 135 versus initial 0-90 Avg 15.0# of force w/ L dynamometer II strength testing. *MET 05/22/21; avg 20. 0# of force. 0-60 degrees left active sh flex. *MET 05/22/21; 0-80 versus initial 0-45 0-60 degrees left active sh abd. *MET 05/22/21; 0-75 versus initial 0-47 [facility] Goals 1. Karolina will be modified independent with upper extremity home exercise program utilizing provided written and visual instructions from therapist. 2. Karolina will present with improved functional abilities of the left hand; this will be evidenced by Karolina obtaining a score of 25.0 or less on the QuickDASH UE Outcome Measure. - Treatment 2 Descriptor Functional movement patterns. 1 Descriptor UE weight bearing. Trunk flexion/ext at EOM. Trunk ext at EOM. L <-> R hand. Orientation to midline. Exercises 4 Descriptor UE ROM. Upper trap stretch. Pec stretch. Manual/ROM by therapist L UE. Black bolster angle. Seated. 2x10. Green Bolster. 1x10. 2 Descriptor Supine. Chest press. 2# ankle weight. 3x10. Sh flex. AROM. 3x10. Elbow flex/ext. 4# weight. 3x10. CGA to assist w/ motor planning. Elbow ext. 2# ankle weight. 3x10. Min tactile assist - ' skull scrap crusher' Sh abd. 1# ankle weight. 3x10. Hor sh abd and ER. 1# ankle weight. 3x10. Blocking at elbow. ER. 1# ankle weight. 3x10. Blocking provided. 1 Descriptor Arm pulleys. x 5 minutes. Bilateral. Seated. - Assessment Assessment of Improvement Karolina will be going on vacation to [place] to see her grandchildren; thus, break in treatment to occur over this next certification period. 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 Karolina is carrying over home recommendations, as well as using music glove to support return to fine motor skills/ oppositional abilities. Despite these gains, she continues to show tendency towards sh elevation with movement of L UE against gravity and/or increased effort and muscular tightness of anterior chest/into IR UE pattern. She also continues to have difficulty functionally incorporating the left upper extremity in day-to-day life. Thus, Karolina would likely benefit from outpatient OT to address L UE weakness, motor planning, awareness of L UE in space, and functional abilities to support Karolina's success with active participation in meaningful activities in a variety of environments. Home Exercise Program Recommended functional incorporation of left upper extremity, as well as continuation of supine UE exercises and wall finger walks and digit extension w/ use of single rubberband. - Plan Therapy Recommendations Continue with Current Program, Advance per Rehabilitation Protocol Comment 12 weeks Comment 1-2 times per week Therapeutic Contents Active Range of Motion, Adaptive Equipment Education, Client Education,Cognitive Skills Development,Functional Activities,Home Exercise Program,Joint Protection, Manual Therapy,Education, Neurodevelopment Treatment, Neuromuscular Re-Education, Self-Care,Stretching/ Flexibility Activities, Therapeutic Activities, Therapeutic Exercises, Modalities,Sensory Re- education Types of Modalities E-Stim,T.E.N. Stimulation,TENS Placement/Application, Ultrasound Additional Types of Modalities Ice/Heat Please Sign and Return: I have reviewed this Plan of Care and certify that the skilled therapy services above are required to meet the patient?s needs. Physician Signature Date Printed Name and Credentials Clinical Instructor Signature Printed Name and Credentials
--- NOTE | 2021-06-01 13:31 | OT.OP.TRT ---
Visit Care Team Role Provider Type Xiomara Diego DO Attending Provider Physician Primary Care Provider Referring Provider Specialty: Family Practice Address: [address] [place] [address], [place], [address] Email: [email or web address] Occupational Therapy Treatment Note OT Outpatient Treatment Note - Adult Start: 03/26/21 15:29 Freq: Status: Active Protocol: Document 06/01/21 13:26 AMS (Rec: 06/01/21 13:30 AMS [id number]) OT Outpatient Adult Treatment Note Session Time Visit Start Time 09:30 Visit Stop Time 10:25 Total Visit Minutes 55 Visit Information Visit Number 10/08; 07/17 visits => 20th visit KX modifier Plan of Care Dates 05/22/21-08/14/21 Insurance Information Medicare Setting Treatment Setting Outpatient Care Visit Type Note Type Treatment Note General Information General Information Patient is a 65 year-old right hand dominant female referred to outpatient OT secondary to thalamic CVA resulting in left sided weakness. PMH: Significant for back pain; diabetes II; neuropathy; stroke/TIA; bilateral rotator cuff tears w/ PT as treatment. - Subjective Identification Type Name Identification Reconciled With Medical Record Observations I am going to [place] to see my grandchildren. I am going with my sister per Karolina . Patient/Caregiver Compliance with Home Good Exercise Program - Objective Objective Measurements Please refer to below for progress towards meeting established OT goals. Short Term Goals 1. 0-100 degrees active left shoulder flexion. 05/22/21 = GOAL UPGRADED 2. 0-90 degrees active left shoulder abduction. 05/22/21 = GOAL UPGRADED 3. 0-30 degrees active left shoulder ER. 05/22/21 = NEW GOAL GOALS MET 0-100 degrees left active elbow flexion. *MET 05/22/21 0- 135 versus initial 0-90 Avg 15.0# of force w/ L dynamometer II strength testing. *MET 05/22/21; avg 20. 0# of force. 0-60 degrees left active sh flex. *MET 05/22/21; 0-80 versus initial 0-45 0-60 degrees left active sh abd. *MET 05/22/21; 0-75 versus initial 0-47 Senior Manager Mmcoe Goals 1. Karolina will be modified independent with upper extremity home exercise program utilizing provided written and visual instructions from therapist. 2. Karolina will present with improved functional abilities of the left hand; this will be evidenced by Karolina obtaining a score of 25.0 or less on the QuickDASH UE Outcome Measure. - Treatment 2 Descriptor Functional movement patterns. 1 Descriptor UE weight bearing. Trunk flexion/ext at EOM. Trunk ext at EOM. L <-> R hand. Orientation to midline. Exercises 4 Descriptor UE ROM. Upper trap stretch. Pec stretch. Manual/ROM by therapist L UE. Black bolster angle. Seated. 2x10. Green Bolster. 1x10. 3 Descriptor Sh ROM. Sh press. Cane. 3 x 10. CGA to min phys assist. 2 Descriptor Supine. Chest press. 2# ankle weight. 3x10. Sh flex. AROM. 3x10. Elbow flex/ext. 4# weight. 3x10. CGA to assist w/ motor planning. Elbow ext. 2# ankle weight. 3x10. Min tactile assist - ' skull medicine assistant' Sh abd. 1# ankle weight. 3x10. Hor sh abd and ER. 1# ankle weight. 3x10. Blocking at elbow. ER. 1# ankle weight. 3x10. Blocking provided. 1 Descriptor UBE. x 5 minutes. Bilateral. Seated. - Assessment Assessment of Improvement Cont tendency towards sh elevation with movement of L UE against gravity and/or increased effort. (+) tightness of anterior chest/ into IR UE pattern. Decreased ability to functionally incorporate left upper extremity in day-to-day life. Advanced therapy based exercises; initiated supine and seated sh press (with cane seated). Some progress is being made towards goals. Karolina would likely benefit from outpatient OT to address L UE weakness, motor planning, awareness of L UE in space, and functional abilities to support Karolina's success with active participation in meaningful activities in a variety of environments. Home Exercise Program Recommended functional incorporation of left upper extremity. Rec anterior chest stretch with use of countertop ; trunk flexion with sh hor abd, ER as tolerated. - Plan Therapy Recommendations Continue with Current Program, Advance per Rehabilitation Protocol
--- NOTE | 2021-06-04 12:27 | OT.OP.TRT ---
Visit Care Team Role Provider Type Xiomara Diego DO Attending Provider Physician Primary Care Provider Referring Provider Specialty: Family Practice Address: [address] [place] [address], [place], [address] Email: [email or web address] Occupational Therapy Treatment Note OT Outpatient Treatment Note - Adult Start: 03/26/21 15:29 Freq: Status: Active Protocol: Document 06/04/21 12:23 AMS (Rec: 06/04/21 12:27 AMS [id number]) OT Outpatient Adult Treatment Note Session Time Visit Start Time 09:30 Visit Stop Time 10:25 Total Visit Minutes 55 Visit Information Visit Number 11/05; 08/16 visits => 20th visit KX modifier Plan of Care Dates 05/22/21-08/14/21 Insurance Information Medicare Setting Treatment Setting Outpatient Care Visit Type Note Type Treatment Note General Information General Information Patient is a 65 year-old right hand dominant female referred to outpatient OT secondary to thalamic CVA resulting in left sided weakness. PMH: Significant for back pain; diabetes II; neuropathy; stroke/TIA; bilateral rotator cuff tears w/ PT as treatment. - Subjective Identification Type Name Identification Reconciled With Medical Record Observations I wasn't able to pick-up my 17-pound grandson per Karolina. Patient/Caregiver Compliance with Home Good Exercise Program - Objective Objective Measurements Please refer to below for progress towards meeting established OT goals. Short Term Goals 1. 0-100 degrees active left shoulder flexion. 05/22/21 = GOAL UPGRADED 2. 0-90 degrees active left shoulder abduction. 05/22/21 = GOAL UPGRADED 3. 0-30 degrees active left shoulder ER. 05/22/21 = NEW GOAL GOALS MET 0-100 degrees left active elbow flexion. *MET 05/22/21 0- 135 versus initial 0-90 Avg 15.0# of force w/ L dynamometer II strength testing. *MET 05/22/21; avg 20. 0# of force. 0-60 degrees left active sh flex. *MET 05/22/21; 0-80 versus initial 0-45 0-60 degrees left active sh abd. *MET 05/22/21; 0-75 versus initial 0-47 Long-Term Goals 1. Karolina will be modified independent with upper extremity home exercise program utilizing provided written and visual instructions from therapist. 2. Karolina will present with improved functional abilities of the left hand; this will be evidenced by Karolina obtaining a score of 25.0 or less on the QuickDASH UE Outcome Measure. - Treatment 2 Descriptor Functional movement patterns. Eye-hand coordination. Seated balloon above head. Ball. Catch. Seated. 1 Descriptor UE weight bearing. Trunk flexion/ext at EOM. Trunk ext at EOM. L <-> R hand. Orientation to midline. Exercises 4 Descriptor UE ROM. Upper trap stretch. Pec stretch. Manual/ROM by therapist L UE. Black bolster angle. Seated. 2x10. Green Bolster. 1x10. 3 Descriptor Sh ROM. Sh hor abd/adduction. Supine. Min phys assist. 2x10. Sh press. Supine. Min phys assist. 2x10. 2 Descriptor Supine. Chest press. 2# ankle weight. 3x10. Sh flex. 1# ankle weight. 3x10 . Elbow flex/ext. 4# weight. 3x10. CGA to assist w/ motor planning. Elbow ext. 2# ankle weight. 3x10. Min tactile assist - ' skull intake man' Sh abd. 1# ankle weight. 3x10. Hor sh abd and ER. 1# ankle weight. 3x10. Blocking at elbow. ER. 1# ankle weight. 3x10. Blocking provided. 1 Descriptor Arm Pulleys. x 5 minutes. Bilateral. Seated. - Assessment Assessment of Improvement Increased resistance with supine sh flex; introduced hor sh abd/add supine with need for min phys assist to execute . Progressed to balloon volleyball above sh height and passing/catching racquetball with the left hand w/ ball being aimed to land within several inches of the left hand while seated. Overall, good session. Karolina would likely benefit from outpatient OT to address L UE weakness, motor planning, awareness of L UE in space, and functional abilities to support Karolina's success with active participation in meaningful activities in a variety of environments. - Plan Therapy Recommendations Continue with Current Program, Advance per Rehabilitation Protocol
--- NOTE | 2021-06-08 14:34 | OT.OP.TRT ---
Visit Care Team Role Provider Type Xiomara Diego DO Attending Provider Physician Primary Care Provider Referring Provider Specialty: Family Practice Address: [address] [place] [address], [place], [address] Email: [email or web address] Occupational Therapy Treatment Note OT Outpatient Treatment Note - Adult Start: 03/26/21 15:29 Freq: Status: Active Protocol: Document 06/08/21 14:29 AMS (Rec: 06/08/21 14:34 AMS [id number]) OT Outpatient Adult Treatment Note Session Time Visit Start Time 09:30 Visit Stop Time 10:25 Total Visit Minutes 55 Visit Information Visit Number 12/06; visits => 20th visit KX modifier Plan of Care Dates 05/22/21-08/14/21 Insurance Information Medicare Setting Treatment Setting Outpatient Care Visit Type Note Type Treatment Note General Information General Information Patient is a 65 year-old right hand dominant female referred to outpatient OT secondary to thalamic CVA resulting in left sided weakness. PMH: Significant for back pain; diabetes II; neuropathy; stroke/TIA; bilateral rotator cuff tears w/ PT as treatment. - Subjective Identification Type Name Identification Reconciled With Medical Record Observations I am able to tie my shoes per Karolina. Patient/Caregiver Compliance with Home Good Exercise Program - Objective Objective Measurements Please refer to below for progress towards meeting established OT goals. Short Term Goals 1. 0-100 degrees active left shoulder flexion. 05/22/21 = GOAL UPGRADED 2. 0-90 degrees active left shoulder abduction. 05/22/21 = GOAL UPGRADED 3. 0-30 degrees active left shoulder ER. 05/22/21 = NEW GOAL GOALS MET 0-100 degrees left active elbow flexion. *MET 05/22/21 0- 135 versus initial 0-90 Avg 15.0# of force w/ L dynamometer II strength testing. *MET 05/22/21; avg 20. 0# of force. 0-60 degrees left active sh flex. *MET 05/22/21; 0-80 versus initial 0-45 0-60 degrees left active sh abd. *MET 05/22/21; 0-75 versus initial 0-47 Paper Box Cutter Goals 1. Karolina will be modified independent with upper extremity home exercise program utilizing provided written and visual instructions from therapist. 2. Karolina will present with improved functional abilities of the left hand; this will be evidenced by Karolina obtaining a score of 25.0 or less on the QuickDASH UE Outcome Measure. - Treatment 2 Descriptor Functional movement patterns. Eye-hand coordination. Seated balloon above head. 1 Descriptor UE weight bearing. Trunk flexion/ext at EOM. Trunk ext at EOM. L <-> R hand. Orientation to midline. Exercises 4 Descriptor UE ROM. Upper trap stretch. Pec stretch. Manual/ROM by therapist L UE. Black bolster angle. Seated. 2x10. Green Bolster. 1x10. 3 Descriptor Sh ROM. Sh hor abd/adduction. Supine. Min phys assist. 2x10. 2 Descriptor Supine. Chest press. 2# ankle weight. 3x10. Sh flex. 1# ankle weight. 3x10 . Elbow flex/ext. 4# weight. 3x10. CGA to assist w/ motor planning. Elbow ext. 2# ankle weight. 3x10. Min tactile assist - ' skull real estate site analyst' Sh abd. 1# ankle weight. 3x10. Hor sh abd and ER. 1# ankle weight. 3x10. Blocking at elbow. ER. 1# ankle weight. 3x10. Blocking provided. Sh press. 1# ankle weight. 3x10. Min tactile assist. 1 Descriptor Arm Pulleys. x 5 minutes. Bilateral. Seated. - Assessment Assessment of Improvement Karolina is able to tie shoe laces with active incorporation of the left hand. Increased resistance with sh press supine. Tendency into sh elevation with above sh height obj manipulation tasks. Left upper weakness. Good session. Karolina would likely benefit from outpatient OT to address L UE weakness, motor planning, awareness of L UE in space, and functional abilities to support Karolina's success with active participation in meaningful activities in a variety of environments. Home Exercise Program Recommended functional incorporation of left upper extremity. Rec anterior chest stretch with use of countertop ; trunk flexion with sh hor abd, ER as tolerated. - Plan Therapy Recommendations Continue with Current Program, Advance per Rehabilitation Protocol
--- NOTE | 2021-06-10 11:40 | OT.OP.TRT ---
Visit Care Team Role Provider Type Xiomara Diego DO Attending Provider Physician Primary Care Provider Referring Provider Specialty: Family Practice Address: [address] [place] [address], [id number] Email: [email or web address] Occupational Therapy Treatment Note OT Outpatient Treatment Note - Adult Start: 03/26/21 15:29 Freq: Status: Active Protocol: Document 06/10/21 11:36 AMS (Rec: 06/10/21 11:39 AMS [id number]) OT Outpatient Adult Treatment Note Session Time Visit Start Time 09:30 Visit Stop Time 10:25 Total Visit Minutes 55 Visit Information Visit Number 01/05; visits => 20th visit KX modifier Plan of Care Dates 05/22/21-08/14/21 Insurance Information Medicare Setting Treatment Setting Outpatient Care Visit Type Note Type Treatment Note General Information General Information Patient is a 65 year-old right hand dominant female referred to outpatient OT secondary to thalamic CVA resulting in left sided weakness. PMH: Significant for back pain; diabetes II; neuropathy; stroke/TIA; bilateral rotator cuff tears w/ PT as treatment. - Subjective Identification Type Name Identification Reconciled With Medical Record Observations No new concerns were reported. Patient/Caregiver Compliance with Home Good Exercise Program - Objective Objective Measurements Please refer to below for progress towards meeting established OT goals. Short Term Goals 1. 0-100 degrees active left shoulder flexion. 05/22/21 = GOAL UPGRADED 2. 0-90 degrees active left shoulder abduction. 05/22/21 = GOAL UPGRADED 3. 0-30 degrees active left shoulder ER. 05/22/21 = NEW GOAL GOALS MET 0-100 degrees left active elbow flexion. *MET 05/22/21 0- 135 versus initial 0-90 Avg 15.0# of force w/ L dynamometer II strength testing. *MET 05/22/21; avg 20. 0# of force. 0-60 degrees left active sh flex. *MET 05/22/21; 0-80 versus initial 0-45 0-60 degrees left active sh abd. *MET 05/22/21; 0-75 versus initial 0-47 Docent Coordinator Goals 1. Karolina will be modified independent with upper extremity home exercise program utilizing provided written and visual instructions from therapist. 2. Karolina will present with improved functional abilities of the left hand; this will be evidenced by Karolina obtaining a score of 25.0 or less on the QuickDASH UE Outcome Measure. - Treatment 2 Descriptor Functional movement patterns. Eye-hand coordination. Seated balloon above head. 1# ankle weight. 2x10. 1 Descriptor UE weight bearing. Trunk flexion/ext at EOM. Trunk ext at EOM. L <-> R hand. Orientation to midline. Exercises 4 Descriptor UE ROM. Upper trap stretch. Pec stretch. Manual/ROM by therapist L UE. Trunk flexion. Hor sh abd. 2x10. AROM. 3 Descriptor Sh ROM. Sh hor abd/adduction. Supine. Min phys assist. 2x10. 2 Descriptor Supine. Chest press. 3# ankle weight. 3x10. Sh flex. 2# ankle weight. 3x10 . Elbow flex/ext. 4# weight. 3x10. CGA to assist w/ motor planning. Elbow ext. 2# ankle weight. 3x10. Min tactile assist - ' skull wool washing machine operator' Sh abd. 1# ankle weight. 3x10. Hor sh abd and ER. 1# ankle weight. 3x10. Blocking at elbow. ER. 1# ankle weight. 3x10. Blocking provided. Sh press. 1# ankle weight. 3x10. Min tactile assist. 1 Descriptor Arm Pulleys. x 5 minutes. Bilateral. Seated. - Assessment Assessment of Improvement Increased resistance with supine exercises. Initiated hor sh abd w/ trunk flexion against gravity in standing. Tendency into sh elevation with above sh height obj manipulation tasks. Left upper weakness. Overall, good session. Karolina would likely benefit from outpatient OT to address L UE weakness, motor planning, awareness of L UE in space, and functional abilities to support Karolina's success with active participation in meaningful activities in a variety of environments. Home Exercise Program Recommended functional incorporation of left upper extremity. Recommended practicing of hor sh abd w/ trunk flexion in standing. Reviewed in session. - Plan Therapy Recommendations Continue with Current Program, Advance per Rehabilitation Protocol
--- NOTE | 2021-06-15 11:34 | OT.OP.TRT ---
Visit Care Team Role Provider Type Xiomara Diego DO Attending Provider Physician Primary Care Provider Referring Provider Specialty: Family Practice Address: [address] [place] [address], [place], [address] Email: [email or web address] Occupational Therapy Treatment Note OT Outpatient Treatment Note - Adult Start: 03/26/21 15:29 Freq: Status: Active Protocol: Document 06/15/21 11:30 AMS (Rec: 06/15/21 11:34 AMS [id number]) OT Outpatient Adult Treatment Note Session Time Visit Start Time 09:30 Visit Stop Time 10:25 Total Visit Minutes 55 Visit Information Visit Number 02/05; visits => 20th visit KX modifier Plan of Care Dates 05/22/21-08/14/21 Insurance Information Medicare Setting Treatment Setting Outpatient Care Visit Type Note Type Treatment Note General Information General Information Patient is a 65 year-old right hand dominant female referred to outpatient OT secondary to thalamic CVA resulting in left sided weakness. PMH: Significant for back pain; diabetes II; neuropathy; stroke/TIA; bilateral rotator cuff tears w/ PT as treatment. - Subjective Identification Type Name Identification Reconciled With Medical Record Observations I feel like this arm and hand are still so weak per Karolina. Patient/Caregiver Compliance with Home Good Exercise Program - Objective Objective Measurements Please refer to below for progress towards meeting established OT goals. Short Term Goals 1. 0-100 degrees active left shoulder flexion. 05/22/21 = GOAL UPGRADED 2. 0-90 degrees active left shoulder abduction. 05/22/21 = GOAL UPGRADED 3. 0-30 degrees active left shoulder ER. 05/22/21 = NEW GOAL GOALS MET 0-100 degrees left active elbow flexion. *MET 05/22/21 0- 135 versus initial 0-90 Avg 15.0# of force w/ L dynamometer II strength testing. *MET 05/22/21; avg 20. 0# of force. 0-60 degrees left active sh flex. *MET 05/22/21; 0-80 versus initial 0-45 0-60 degrees left active sh abd. 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 Karolina will be modified independent with upper extremity home exercise program utilizing provided written and visual instructions from therapist. 2. Karolina will present with improved functional abilities of the left hand; this will be evidenced by Karolina obtaining a score of 25.0 or less on the QuickDASH UE Outcome Measure. - Treatment 2 Descriptor Functional movement patterns. Eye-hand coordination. 1 Descriptor UE weight bearing. Trunk flexion/ext at EOM. Trunk ext at EOM. L <-> R hand. Orientation to midline. Exercises 4 Descriptor UE ROM. Upper trap stretch. Pec stretch. Manual/ROM by therapist L UE. Trunk flexion. Hor sh abd. 2x10. AROM. 3 Descriptor Sh ROM. Sh hor abd/adduction. Supine. Min phys assist. 2x10. 2 Descriptor Supine. Chest press. 4# ankle weight. 3x10. Sh flex. 2# ankle weight. 3x10 . Elbow flex/ext. 4# weight. 3x10. CGA to assist w/ motor planning. Elbow ext. 2# ankle weight. 3x10. Min tactile assist - ' skull repairer screen crusher' Sh abd. 1# ankle weight. 3x10. Sh hor abd and ER. 1# ankle weight. 3x10. Blocking at elbow. ER. 2# ankle weight. 3x10. Blocking provided. Sh hor abd/add. 1# ankle weight. 3x10. Sh press. 1# ankle weight. 3x10. 1 Descriptor Arm Pulleys. x 5 minutes. Bilateral. Seated. - Assessment Assessment of Improvement Increased resistance with some of supine L UE strengthening exercises. Tendency into sh elevation with above sh height obj manipulation tasks. Left upper weakness. Decreased coordination between the upper extremities with increased reliance on the right upper extremity. Introduced bimanual tennis ball exercise in standing at TT. Overall, good session. Karolina would likely benefit from outpatient OT to address L UE weakness, motor planning, awareness of L UE in space, and functional abilities to support Karolina's success with active participation in meaningful activities in a variety of environments. Home Exercise Program No additional changes to HEP were made. - Plan Therapy Recommendations Continue with Current Program, Advance per Rehabilitation Protocol
--- NOTE | 2021-06-22 12:03 | OT.OP.TRT ---
Visit Care Team Role Provider Type Xiomara Diego DO Attending Provider Physician Primary Care Provider Referring Provider Specialty: Family Practice Address: [address] [place] [address], [place], [address] Email: [email or web address] Occupational Therapy Treatment Note OT Outpatient Treatment Note - Adult Start: 03/26/21 15:29 Freq: Status: Active Protocol: Document 06/22/21 11:58 AMS (Rec: 06/22/21 12:02 AMS [id number]) OT Outpatient Adult Treatment Note Session Time Visit Start Time 09:35 Visit Stop Time 10:25 Total Visit Minutes 50 Visit Information Visit Number 03/07; visits => 20th visit KX modifier Plan of Care Dates 05/22/21-08/14/21 Insurance Information Medicare Setting Treatment Setting Outpatient Care Visit Type Note Type Treatment Note General Information General Information Patient is a 65 year-old right hand dominant female referred to outpatient OT secondary to thalamic CVA resulting in left sided weakness. PMH: Significant for back pain; diabetes II; neuropathy; stroke/TIA; bilateral rotator cuff tears w/ PT as treatment. - Subjective Identification Type Name Identification Reconciled With Medical Record Observations I keep dropping things with this hand per Karolina. We are going on vacation next week per Karolina. Patient/Caregiver Compliance with Home Good Exercise Program - Objective Objective Measurements Please refer to below for progress towards meeting established OT goals. Short Term Goals 1. 0-100 degrees active left shoulder flexion. 05/22/21 = GOAL UPGRADED 2. 0-90 degrees active left shoulder abduction. 05/22/21 = GOAL UPGRADED 3. 0-30 degrees active left shoulder ER. 05/22/21 = NEW GOAL GOALS MET 0-100 degrees left active elbow flexion. *MET 05/22/21 0- 135 versus initial 0-90 Avg 15.0# of force w/ L dynamometer II strength testing. *MET 05/22/21; avg 20. 0# of force. 0-60 degrees left active sh flex. *MET 05/22/21; 0-80 versus initial 0-45 0-60 degrees left active sh abd. *MET 05/22/21; 0-75 versus initial 0-47 Shelter Goals 1. Karolina will be modified independent with upper extremity home exercise program utilizing provided written and visual instructions from therapist. 2. Karolina will present with improved functional abilities of the left hand; this will be evidenced by Karolina obtaining a score of 25.0 or less on the QuickDASH UE Outcome Measure. - Treatment 2 Descriptor Functional movement patterns. Eye-hand coordination. 1 Descriptor UE weight bearing. Trunk flexion/ext at EOM. Trunk ext at EOM. L <-> R hand. Orientation to midline. Exercises 4 Descriptor UE ROM. Upper trap stretch. Pec stretch. Manual/ROM by therapist L UE. 3 Descriptor Sh ROM. Sh hor abd/adduction. Supine. Min phys assist. 2x10. 2 Descriptor Supine. Chest press. 5# ankle weight. 3x10. CGA last set. Sh flex. 2# ankle weight. 3x10 . Elbow flex/ext. 4# weight. 3x10. CGA to assist w/ motor planning. Sh abd. 2# ankle weight. 3x10. Sh hor abd and ER. 2# ankle weight. 3x10. Blocking at elbow. ER. 2# ankle weight. 3x10. Blocking provided. Sh hor abd/add. 1# ankle weight. 3x10. Sh press. 1# ankle weight. 3x10. 1 Descriptor Arm Pulleys. x 5 minutes. Bilateral. Seated. - Assessment Assessment of Improvement Complaints of dropping items with the left hand in the home . Increased resistance with some supine L UE strengthening exercises. Tendency into sh elevation with above sh height obj manipulation tasks. Left upper weakness. Decreased coordination between the upper extremities with increased reliance on the right upper extremity. Overall, good session. Karolina would likely benefit from outpatient OT to address L UE weakness, motor planning, awareness of L UE in space, and functional abilities to support Karolina's success with active participation in meaningful activities in a variety of environments. Home Exercise Program No additional changes to HEP were made. - Plan Therapy Recommendations Continue with Current Program, Advance per Rehabilitation Protocol
--- NOTE | 2021-06-25 12:03 | OT.OP.TRT ---
Visit Care Team Role Provider Type Xiomara Diego DO Attending Provider Physician Primary Care Provider Referring Provider Specialty: Family Practice Address: [address] [place] [address], [place], [address] Email: [email or web address] Occupational Therapy Treatment Note OT Outpatient Treatment Note - Adult Start: 03/26/21 15:29 Freq: Status: Active Protocol: Document 06/25/21 11:56 AMS (Rec: 06/25/21 12:03 AMS [id number]) OT Outpatient Adult Treatment Note Session Time Visit Start Time 09:30 Visit Stop Time 10:25 Total Visit Minutes 55 Visit Information Visit Number 04/07; visits => 20th visit KX modifier Plan of Care Dates 05/22/21-08/14/21 Insurance Information Medicare Setting Treatment Setting Outpatient Care Visit Type Note Type Treatment Note General Information General Information Patient is a 65 year-old right hand dominant female referred to outpatient OT secondary to thalamic CVA resulting in left sided weakness. PMH: Significant for back pain; diabetes II; neuropathy; stroke/TIA; bilateral rotator cuff tears w/ PT as treatment. - Subjective Identification Type Name Identification Reconciled With Medical Record Observations We are going to [place] per Karolina. Patient/Caregiver Compliance with Home Good Exercise Program - Objective Objective Measurements Please refer to below for progress towards meeting established OT goals. Short Term Goals 1. 0-100 degrees active left shoulder flexion. 05/22/21 = GOAL UPGRADED 2. 0-90 degrees active left shoulder abduction. 05/22/21 = GOAL UPGRADED 3. 0-30 degrees active left shoulder ER. 05/22/21 = NEW GOAL GOALS MET 0-100 degrees left active elbow flexion. *MET 05/22/21 0- 135 versus initial 0-90 Avg 15.0# of force w/ L dynamometer II strength testing. *MET 05/22/21; avg 20. 0# of force. 0-60 degrees left active sh flex. *MET 05/22/21; 0-80 versus initial 0-45 0-60 degrees left active sh abd. *MET 05/22/21; 0-75 versus initial 0-47 Drapery Supervisor Goals 1. Karolina will be modified independent with upper extremity home exercise program utilizing provided written and visual instructions from therapist. 2. Karolina will present with improved functional abilities of the left hand; this will be evidenced by Karolina obtaining a score of 25.0 or less on the QuickDASH UE Outcome Measure. - Treatment 2 Descriptor Functional movement patterns. Eye-hand coordination. 1 Descriptor UE weight bearing. Trunk flexion/ext at EOM. Trunk ext at EOM. L <-> R hand. Orientation to midline. Exercises 5 Descriptor Standing. L UE strengthening. Sh ext. TB #2. 3x10. Scapular retraction. TB #2. 3x10. 4 Descriptor UE ROM. Upper trap stretch. Pec stretch. Manual/ROM by therapist L UE. Seated cane L UE stretch ( diagonal to left of body). 2 Descriptor Supine. Chest press. 5# ankle weight. 3x10. CGA last set. Sh flex. 2# ankle weight. 3x10 . Elbow flex/ext. 5# weight. 3x10. CGA to assist w/ motor planning. Sh abd. 2# ankle weight. 3x10. Sh hor abd and ER. 2# ankle weight. 3x10. Blocking at elbow. ER. 2# ankle weight. 3x10. Blocking provided. Sh hor abd/add. 1# ankle weight. 3x10. Sh press. 1# ankle weight. 3x10. PNF diagonal. Right hip <-> external space. No weight. 3x10. 1 Descriptor Arm Pulleys. x 5 minutes. Bilateral. Seated. - Assessment Assessment of Improvement Informed that additional appointments needed to be scheduled; sent message to [employer] [facility] [employer] staff to assist with scheduling. Increased resistance with some supine L UE strengthening exercises. Continued tendency into sh elevation with above sh height obj manipulation tasks. Left upper weakness. Decreased coordination between the upper extremities with increased reliance on the right upper extremity. Upgraded eye-hand coordination activity to left of the body and initiated sh ext and scapular retraction strengthening exercises in standing with use of TB. Overall, good session with some improvements being made with strength/coordination/eye -hand coordination. Karolina would likely benefit from outpatient OT to address L UE weakness, motor planning, awareness of L UE in space, and functional abilities to support Karolina's success with active participation in meaningful activities in a variety of environments. Home Exercise Program No additional changes to HEP were made. - Plan Therapy Recommendations Continue with Current Program, Advance per Rehabilitation Protocol
--- NOTE | 2021-07-14 11:47 | OT.OP.TRT ---
Visit Care Team Role Provider Type Xiomara Diego DO Attending Provider Physician Primary Care Provider Referring Provider Specialty: Family Practice Address: [address] [place] [address], [place], [address] Email: [email or web address] Occupational Therapy Treatment Note OT Outpatient Treatment Note - Adult Start: 03/26/21 15:29 Freq: Status: Active Protocol: Document 07/14/21 11:42 AMS (Rec: 07/14/21 11:47 AMS [id number]) OT Outpatient Adult Treatment Note Session Time Visit Start Time 09:30 Visit Stop Time 10:25 Total Visit Minutes 55 Visit Information Visit Number 05/08; visits => 20th visit KX modifier Plan of Care Dates 05/22/21-08/14/21 Insurance Information Medicare Setting Treatment Setting Outpatient Care Visit Type Note Type Treatment Note General Information General Information Patient is a 65 year-old right hand dominant female referred to outpatient OT secondary to thalamic CVA resulting in left sided weakness. PMH: Significant for back pain; diabetes II; neuropathy; stroke/TIA; bilateral rotator cuff tears w/ PT as treatment. - Subjective Identification Type Name Identification Reconciled With Medical Record Observations I am still dropping things with this hand. I dropped some clothes that were on hangers when I was on the stairs per Karolina. Patient/Caregiver Compliance with Home Good Exercise Program - Objective Objective Measurements Please refer to below for progress towards meeting established OT goals. Short Term Goals 1. 0-100 degrees active left shoulder flexion. 05/22/21 = GOAL UPGRADED 2. 0-90 degrees active left shoulder abduction. 05/22/21 = GOAL UPGRADED 3. 0-30 degrees active left shoulder ER. 05/22/21 = NEW GOAL GOALS MET 0-100 degrees left active elbow flexion. *MET 05/22/21 0- 135 versus initial 0-90 Avg 15.0# of force w/ L dynamometer II strength testing. *MET 05/22/21; avg 20. 0# of force. 0-60 degrees left active sh flex. *MET 05/22/21; 0-80 versus initial 0-45 0-60 degrees left active sh abd. *MET 05/22/21; 0-75 versus initial 0-[address] Goals 1. Karolina will be modified independent with upper extremity home exercise program utilizing provided written and visual instructions from therapist. 2. Karolina will present with improved functional abilities of the left hand; this will be evidenced by Karolina obtaining a score of 25.0 or less on the QuickDASH UE Outcome Measure. - Treatment 2 Descriptor Functional movement patterns. Eye-hand coordination. 1 Descriptor UE weight bearing. Trunk flexion/ext at EOM. Trunk ext at EOM. L <-> R hand. Orientation to midline. Exercises 6 Descriptor Seated UE strengthening. Shoulder press. 2# weight. 3x10. 5 Descriptor Standing. L UE strengthening. Sh ext. TB #2. 3x10. Scapular retraction. TB #2. 3x10. 4 Descriptor UE ROM. Upper trap stretch. Pec stretch. Manual/ROM by therapist L UE. Seated cane L UE stretch ( diagonal to left of body). 2 Descriptor Supine. Chest press. 5# ankle weight. 3x10. CGA last set. Sh flex. 2# ankle weight. 3x10 . Elbow flex/ext. 5# weight. 3x10. CGA to assist w/ motor planning. Sh abd. 2# ankle weight. 3x10. Sh hor abd and ER. 2# ankle weight. 3x10. Blocking at elbow. ER. 2# ankle weight. 3x10. Blocking provided. PNF diagonal. Right hip <-> external space. 1# ankle weight. 3x10. Phys assist to guide/control movement. 1 Descriptor UBE. x 5 minutes. Bilateral. Seated. - Assessment Assessment of Improvement Increased resistance with a supine L UE strengthening exercise; upgraded to seated shoulder press with use of weight and a cane. Tendency into sh elevation with above sh height obj manipulation tasks. Left upper extremity weakness. Decreased coordination between the upper extremities with increased reliance on the right upper extremity. Overall, good session. Karolina would likely benefit from outpatient OT to address L UE weakness, motor planning, awareness of L UE in space, and functional abilities to support Karolina's success with active participation in meaningful activities in a variety of environments. Home Exercise Program No additional changes to HEP were made. - Plan Therapy Recommendations Continue with Current Program, Advance per Rehabilitation Protocol
--- NOTE | 2021-07-16 11:54 | OT.OPPN ---
Current Diagnoses Cerebral infarction, unspecified (07/16/21) Other symptoms and signs involving the musculoskeletal system (07/16/21) OT Progress Note OT Outpatient Treatment Note - Adult Start: 03/26/21 15:29 Freq: Status: Active Protocol: Document 07/16/21 11:38 AMS (Rec: 07/16/21 11:53 AMS [id number]) OT Outpatient Adult Treatment Note Session Time Visit Start Time 09:30 Visit Stop Time 10:23 Total Visit Minutes 53 Visit Information Visit Number 09/07; visits => 20th visit KX modifier Plan of Care Dates 07/16/21-10/08/21 Insurance Information Medicare Setting Treatment Setting Outpatient Care Visit Type Note Type Progress Note General Information General Information Patient is a 65 year-old right hand dominant female referred to outpatient OT secondary to thalamic CVA resulting in left sided weakness. PMH: Significant for back pain; diabetes II; neuropathy; stroke/TIA; bilateral rotator cuff tears w/ PT as treatment. - Subjective Identification Type Name Identification Reconciled With Medical Record Observations This shoulder does not hurt as much as it used to per Karolina. Patient/Caregiver Compliance with Home Good Exercise Program - Objective Objective Measurements Please refer to below for progress towards meeting established OT goals. Short Term Goals 1. 0-120 degrees active left shoulder flexion. 07/16/21 = GOAL UPGRADED 2. 0-85 degrees active left shoulder abduction. 07/16/21= 75% met GOALS MET 0-100 degrees left active elbow flexion. *MET 05/22/21 0- 135 versus initial 0-90 Avg 15.0# of force w/ L dynamometer II strength testing. *MET 05/22/21; avg 20. 0# of force. 0-60 degrees left active sh flex. *MET 05/22/21; 0-80 versus initial 0-45 0-60 degrees left active sh abd. *MET 05/22/21; 0-75 versus initial 0-47 0-100 degrees active left shoulder flexion. *MET ; 0-110 versus initial 0-45 0-30 degrees active left shoulder ER. *MET 07/16/21; 0- 60 degrees versus initial 0-10 Servicing Manager Goals 1. Karolina will be modified independent with upper extremity home exercise program utilizing provided written and visual instructions from therapist. 2. Karolina will present with improved functional abilities of the left hand; this will be evidenced by Karolina obtaining a score of 25.0 or less on the QuickDASH UE Outcome Measure. - Treatment 2 Descriptor Functional movement patterns. Eye-hand coordination. 1 Descriptor UE weight bearing. Trunk flexion/ext at EOM. Trunk ext at EOM. L <-> R hand. Orientation to midline. Exercises 6 Descriptor Seated UE strengthening. Shoulder press. 2# weight. 3x10. 5 Descriptor Seated. Sh ext with cane. 2# weight. 3x10. 4 Descriptor UE ROM. Upper trap stretch. Pec stretch. Manual/ROM by therapist L UE. Seated cane L UE stretch ( diagonal to left of body). Wall/finger walk with towel. 1x10. 2 Descriptor Supine. Chest press. 5# ankle weight. 3x10. CGA last set. Sh flex. 2# ankle weight. 3x10 . Sh abd. 2# ankle weight. 3x10. Sh hor abd and ER. 2# ankle weight. 3x10. Blocking at elbow. ER. 2# ankle weight. 3x10. Blocking provided. PNF diagonal. Right hip <-> external space. 1# ankle weight. 3x10. Phys assist to guide/control movement. 1 Descriptor Arm pulleys. x 5 minutes. Bilateral. Seated. - Assessment Assessment of Improvement Karolina is demonstrating improving pain-free active range of motion of the left upper extremity; she continues to have tightness w/ typical sh add/IR. Introduced towel slide with sh abd versus focus on sh flexion for at home practice/exercise in today's treatment session. She continues to need verbal cueing, as well as intermittent blocking/physical cueing, d/t tendency into sh elevation with above sh height obj manipulation tasks with the left hand. She is demonstrating increasing upper extremity strength of the left upper extremity, as evidenced by ability to increase resistance with exercises. However, continues to c/o fatigue with completion of functional tasks. Thus, there is a continued need to address upper extremity strength to support functional abilities. She reports spontaneously using the left hand with reaching for things; this suggests improving attention and incorporation of the left hand/upper extremity in day-to-day life and should continue to support motor planning abilities. Overall, Karolina has made good progress. She would likely benefit from outpatient OT to address L UE weakness, motor planning, awareness of L UE in space, and functional abilities to support Karolina's success with active participation in meaningful activities in a variety of environments. Recommend working on pain-free ROM, strength, kinesthetic/ proprioceptive awareness of UE , bimanual coordination, eye- hand coordination/reaction time, and functional abilities . - Plan Therapy Recommendations Continue with Current Program, Advance per Rehabilitation Protocol Comment 12 weeks Comment 1-2 times per week Therapeutic Contents Active Range of Motion, Adaptive Equipment Education, Client Education,Functional Activities,Home Exercise Program,Joint Protection, Manual Therapy,Education, Neurodevelopment Treatment, Neuromuscular Re-Education, Self-Care,Therapeutic Activities,Therapeutic Exercises,Modalities,Sensory Re-education Additional Types of Modalities Heat/Cold/E-stim Please Sign and Return: I have reviewed this Plan of Care and certify that the skilled therapy services above are required to meet the patient?s needs. Physician Signature Date Printed Name and Credentials Clinical Instructor Signature Printed Name and Credentials
--- NOTE | 2021-07-28 15:39 | OT.OP.TRT ---
Visit Care Team Role Provider Type Xiomara Diego DO Attending Provider Physician Primary Care Provider Referring Provider Specialty: Family Practice Address: [address] [place] [address], [place], [address] Email: [email or web address] Occupational Therapy Treatment Note OT Outpatient Treatment Note - Adult Start: 03/26/21 15:29 Freq: Status: Active Protocol: Document 07/28/21 15:32 AMS (Rec: 07/28/21 15:39 AMS [id number]) OT Outpatient Adult Treatment Note Session Time Visit Start Time 09:30 Visit Stop Time 10:20 Total Visit Minutes 50 Visit Information Visit Number 10/08; visits => 20th visit KX modifier Plan of Care Dates 07/16/21-10/08/21 Insurance Information Medicare Setting Treatment Setting Outpatient Care Visit Type Note Type Treatment Note General Information General Information Patient is a 65 year-old right hand dominant female referred to outpatient OT secondary to thalamic CVA resulting in left sided weakness. PMH: Significant for back pain; diabetes II; neuropathy; stroke/TIA; bilateral rotator cuff tears w/ PT as treatment. - Subjective Identification Type Name Identification Reconciled With Medical Record Observations This arm still shakes when I am trying to use it per Karolina. Patient/Caregiver Compliance with Home Good Exercise Program - Objective Objective Measurements Please refer to below for progress towards meeting established OT goals. Short Term Goals 1. 0-120 degrees active left shoulder flexion. 07/16/21 = GOAL UPGRADED 2. 0-85 degrees active left shoulder abduction. 07/16/21= 75% met GOALS MET 0-100 degrees left active elbow flexion. *MET 05/22/21 0- 135 versus initial 0-90 Avg 15.0# of force w/ L dynamometer II strength testing. *MET 05/22/21; avg 20. 0# of force. 0-60 degrees left active sh flex. *MET 05/22/21; 0-80 versus initial 0-45 0-60 degrees left active sh abd. *MET 05/22/21; 0-75 versus initial 0-47 0-100 degrees active left shoulder flexion. *MET ; 0-110 versus initial 0-45 0-30 degrees active left shoulder ER. *MET 07/16/21; 0- 60 degrees versus initial 0-10 Census Enumerator Goals 1. Karolina will be modified independent with upper extremity home exercise program utilizing provided written and visual instructions from therapist. 2. Karolina will present with improved functional abilities of the left hand; this will be evidenced by Karolina obtaining a score of 25.0 or less on the QuickDASH UE Outcome Measure. - Treatment 2 Descriptor Functional movement patterns. Eye-hand coordination. 1 Descriptor UE weight bearing. Trunk flexion/ext at EOM. Hand positioned w/ sh abd. Exercises 6 Descriptor Seated UE strengthening. Shoulder press. 1# weight. 3x10. 5 Descriptor Standing Sh ext. 1# TB. 3x10. 4 Descriptor UE ROM. Upper trap stretch. Pec stretch. Manual/ROM by therapist L UE. Seated cane L UE stretch ( diagonal to left of body). Wall/finger walk with towel. 1x10. 2 Descriptor Supine. N/A 11/30. Chest press. 5# ankle weight. 3x10. CGA last set. Sh flex. 2# ankle weight. 3x10 . Sh abd. 2# ankle weight. 3x10. Sh hor abd and ER. 2# ankle weight. 3x10. Blocking at elbow. ER. 2# ankle weight. 3x10. Blocking provided. PNF diagonal. Right hip <-> external space. 1# ankle weight. 3x10. Phys assist to guide/control movement. 1 Descriptor Arm pulleys. x 3 minutes. Bilateral. Seated. Frontal plane. x 3 minutes. Bilateral. Seated. Snow griffin. - Assessment Assessment of Improvement Initiated 'snow griffin' approach to use of arm pulleys seated. Tendency into sh elevation with above sh height obj manipulation tasks with the left hand. c/o 'shakiness' w/ manipulation of objects with the left hand. Initiated weight bearing to left of body w/ attempt at maintaining hand on surface w/ active elbow flex/ext. Initiated vertical object manipulation ( get-a-front desk receptionist) w/ provision of proximal stabilization at elbow level. Overall, good session. She would likely benefit from outpatient OT to address L UE weakness, motor planning, awareness of L UE in space, and functional abilities to support Karolina's success with active participation in meaningful activities in a variety of environments. Recommend working on pain-free ROM, strength, kinesthetic/ proprioceptive awareness of UE , bimanual coordination, eye- hand coordination/reaction time, and functional abilities . Home Exercise Program No additional changes to HEP were made. - Plan Therapy Recommendations Continue with Current Program, Advance per Rehabilitation Protocol
--- NOTE | 2021-07-30 12:17 | OT.OP.TRT ---
Visit Care Team Role Provider Type Xiomara Diego DO Attending Provider Physician Primary Care Provider Referring Provider Specialty: Family Practice Address: [address] [place] [address], [place], [address] Email: [email or web address] Occupational Therapy Treatment Note OT Outpatient Treatment Note - Adult Start: 03/26/21 15:29 Freq: Status: Active Protocol: Document 07/30/21 12:11 AMS (Rec: 07/30/21 12:17 AMS [id number]) OT Outpatient Adult Treatment Note Session Time Visit Start Time 09:30 Visit Stop Time 10:24 Total Visit Minutes 54 Visit Information Visit Number 11/05; visits => 20th visit KX modifier Plan of Care Dates 07/16/21-10/08/21 Insurance Information Medicare Setting Treatment Setting Outpatient Care Visit Type Note Type Treatment Note General Information General Information Patient is a 65 year-old right hand dominant female referred to outpatient OT secondary to thalamic CVA resulting in left sided weakness. PMH: Significant for back pain; diabetes II; neuropathy; stroke/TIA; bilateral rotator cuff tears w/ PT as treatment. - Subjective Identification Type Name Identification Reconciled With Medical Record Observations No new concerns were reported. Patient/Caregiver Compliance with Home Good Exercise Program - Objective Objective Measurements Please refer to below for progress towards meeting established OT goals. Short Term Goals 1. 0-120 degrees active left shoulder flexion. 07/16/21 = GOAL UPGRADED 2. 0-85 degrees active left shoulder abduction. 07/16/21= 75% met GOALS MET 0-100 degrees left active elbow flexion. *MET 05/22/21 0- 135 versus initial 0-90 Avg 15.0# of force w/ L dynamometer II strength testing. *MET 05/22/21; avg 20. 0# of force. 0-60 degrees left active sh flex. *MET 05/22/21; 0-80 versus initial 0-45 0-60 degrees left active sh abd. *MET 05/22/21; 0-75 versus initial 0-47 0-100 degrees active left shoulder flexion. *MET ; 0-110 versus initial 0-45 0-30 degrees active left shoulder ER. *MET 07/16/21; 0- 60 degrees versus initial 0-10 [facility] [employer] Goals 1. Karolina will be modified independent with upper extremity home exercise program utilizing provided written and visual instructions from therapist. 2. Karolina will present with improved functional abilities of the left hand; this will be evidenced by Karolina obtaining a score of 25.0 or less on the QuickDASH UE Outcome Measure. - Treatment 2 Descriptor Object manipulation. Functional movement patterns. 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 Metal rings medium and small size different heights. Removal of items on wall above sh height. 1 Descriptor UE weight bearing. Trunk flexion/ext at EOM. Hand positioned w/ sh abd. Exercises 6 Descriptor Seated UE strengthening. Shoulder press. 1# weight. 3x10. 5 Descriptor Standing Sh ext. 1# TB. 3x10. 4 Descriptor UE ROM. Upper trap stretch. Pec stretch. Manual/ROM by therapist L UE. Seated cane L UE stretch ( diagonal to left of body). Wall/finger walk with towel. 1x10. 2 Descriptor Supine. N/A 12/2. Chest press. 5# ankle weight. 3x10. CGA last set. Sh flex. 2# ankle weight. 3x10 . Sh abd. 2# ankle weight. 3x10. Sh hor abd and ER. 2# ankle weight. 3x10. Blocking at elbow. ER. 2# ankle weight. 3x10. Blocking provided. PNF diagonal. Right hip <-> external space. 1# ankle weight. 3x10. Phys assist to guide/control movement. 1 Descriptor Arm pulleys. x 3 minutes. Bilateral. Seated. Frontal plane. x 3 minutes. Bilateral. Seated. Snow griffin. - Assessment Assessment of Improvement Increased success w/ weight bearing of left upper extremity to left of body when seated and object manipulation on vertical plane . Fatigue noted; however, increasing number of repetitions are able to be completed above sh height while seated and/or when in standing with the left upper extremity. Initiated removal of items taped to wall with left hand; recommend repeating . Decreased awareness of upper extremity in space and removal of taped items positioned to left and/or to the right of body above head height. Overall, good session. She would likely benefit from outpatient OT to address L UE weakness, motor planning, awareness of L UE in space, and functional abilities to support Karolina's success with active participation in meaningful activities in a variety of environments. Recommend working on pain-free ROM, strength, kinesthetic/ proprioceptive awareness of UE , bimanual coordination, eye- hand coordination/reaction time, and functional abilities . Home Exercise Program Recommended use of sticky notes to replicate activity completed in treatment session , as well as wall walks and/or weight bearing to the left. - Plan Therapy Recommendations Continue with Current Program, Advance per Rehabilitation Protocol
--- NOTE | 2021-08-04 11:50 | OT.OP.TRT ---
Visit Care Team Role Provider Type Xiomara Diego DO Attending Provider Physician Primary Care Provider Referring Provider Specialty: Family Practice Address: [address] [place] [address], [place], [address] Email: [email or web address] Occupational Therapy Treatment Note OT Outpatient Treatment Note - Adult Start: 03/26/21 15:29 Freq: Status: Active Protocol: Document 08/04/21 11:45 AMS (Rec: 08/04/21 11:50 AMS [id number]) OT Outpatient Adult Treatment Note Session Time Visit Start Time 09:30 Visit Stop Time 10:23 Total Visit Minutes 53 Visit Information Visit Number 12/06; visits => 20th visit KX modifier Plan of Care Dates 07/16/21-10/08/21 Insurance Information Medicare Setting Treatment Setting Outpatient Care Visit Type Note Type Treatment Note General Information General Information Patient is a 65 year-old right hand dominant female referred to outpatient OT secondary to thalamic CVA resulting in left sided weakness. PMH: Significant for back pain; diabetes II; neuropathy; stroke/TIA; bilateral rotator cuff tears w/ PT as treatment. - Subjective Identification Type Name Identification Reconciled With Medical Record Observations It still takes a long time for me to do anything per Karolina when therapist inquired about functional incorporation of the left upper extremity ( e.g., folding clothes). Patient/Caregiver Compliance with Home Good Exercise Program - Objective Objective Measurements Please refer to below for progress towards meeting established OT goals. Short Term Goals 1. 0-120 degrees active left shoulder flexion. 07/16/21 = GOAL UPGRADED 2. 0-85 degrees active left shoulder abduction. 07/16/21= 75% met GOALS MET 0-100 degrees left active elbow flexion. *MET 05/22/21 0- 135 versus initial 0-90 Avg 15.0# of force w/ L dynamometer II strength testing. *MET 05/22/21; avg 20. 0# of force. 0-60 degrees left active sh flex. *MET 05/22/21; 0-80 versus initial 0-45 0-60 degrees left active sh abd. *MET 05/22/21; 0-75 versus initial 0-47 0-100 degrees active left shoulder flexion. *MET ; 0-110 versus initial 0-45 0-30 degrees active left shoulder ER. *MET 07/16/21; 0- 60 degrees versus initial 0-10 [facility] Goals 1. Karolina will be modified independent with upper extremity home exercise program utilizing provided written and visual instructions from therapist. 2. Karolina will present with improved functional abilities of the left hand; this will be evidenced by Karolina obtaining a score of 25.0 or less on the QuickDASH UE Outcome Measure. - Treatment 2 Descriptor Object manipulation. Functional movement patterns. Removal of items on wall above sh height; completed in front of body on wall and to the left of the body at/slightly below shoulder height. Resistant clothespins overhead . Hendricks manipulation to the left of the body. 1 Descriptor UE weight bearing. Trunk flexion/ext at EOM. Hand positioned w/ sh abd. Exercises 4 Descriptor UE ROM. Upper trap stretch. Pec stretch. Manual/ROM by therapist L UE. Seated cane L UE stretch ( diagonal to left of body). Wall/finger walk with towel. 1x10. 2 Descriptor Supine. Sh flex. 2# ankle weight. 3x10 . Sh abd. 2# ankle weight. 3x10. Sh hor abd and ER. 2# ankle weight. 3x10. Blocking at elbow. ER. 2# ankle weight. 3x10. Blocking provided. PNF diagonal. Right hip <-> external space. 1# ankle weight. 3x10. Phys assist to guide/control movement. 1 Descriptor Arm pulleys. x 3 minutes. Bilateral. Seated. Frontal plane. x 3 minutes. Bilateral. Seated. Snow griffin. - Assessment Assessment of Improvement c/o decreased efficiency w/ task completion w/ active incorporation of the left hand and/or when completing bimanual tasks (e.g., folding of clothes). Initiated removal of items taped to wall with left hand to the left of the body; recommend repeating and increasing demands ( positioning items to be removing from wall above sh height). Overall, good session . Karolina would likely benefit from outpatient OT to address L UE weakness, motor planning, awareness of L UE in space, and functional abilities to support Karolina's success with active participation in meaningful activities in a variety of environments. Recommend working on pain-free ROM, strength, kinesthetic/ proprioceptive awareness of UE , bimanual coordination, eye- hand coordination/reaction time, and functional abilities . Home Exercise Program No additional changes were recommended. - Plan Therapy Recommendations Continue with Current Program, Advance per Rehabilitation Protocol
--- NOTE | 2021-08-06 11:56 | OT.OP.TRT ---
Visit Care Team Role Provider Type Xiomara Diego DO Attending Provider Physician Primary Care Provider Referring Provider Specialty: Family Practice Address: [address] [place] [address], [place], [address] Email: [email or web address] Occupational Therapy Treatment Note OT Outpatient Treatment Note - Adult Start: 03/26/21 15:29 Freq: Status: Active Protocol: Document 08/06/21 11:49 AMS (Rec: 08/06/21 11:56 AMS [id number]) OT Outpatient Adult Treatment Note Session Time Visit Start Time 09:30 Visit Stop Time 10:25 Total Visit Minutes 55 Visit Information Visit Number 01/05; visits => 20th visit KX modifier Plan of Care Dates 07/16/21 - 10/08/21 Insurance Information Medicare Setting Treatment Setting Outpatient Care Visit Type Note Type Treatment Note General Information General Information Patient is a 65 year-old right hand dominant female referred to outpatient OT secondary to thalamic CVA resulting in left sided weakness. PMH: Significant for back pain; diabetes II; neuropathy; stroke/TIA; bilateral rotator cuff tears w/ PT as treatment. - Subjective Identification Type Name Identification Reconciled With Medical Record Observations No new concerns were reported. It takes me a long time to pack per Karolina. Patient/Caregiver Compliance with Home Good Exercise Program - Objective Objective Measurements Please refer to below for progress towards meeting established OT goals. Short Term Goals 1. 0-120 degrees active left shoulder flexion. 07/16/21 = GOAL UPGRADED 2. 0-85 degrees active left shoulder abduction. 07/16/21= 75% met GOALS MET 0-100 degrees left active elbow flexion. *MET 05/22/21 0- 135 versus initial 0-90 Avg 15.0# of force w/ L dynamometer II strength testing. *MET 05/22/21; avg 20. 0# of force. 0-60 degrees left active sh flex. *MET 05/22/21; 0-80 versus initial 0-45 0-60 degrees left active sh abd. *MET 05/22/21; 0-75 versus initial 0-47 0-100 degrees active left shoulder flexion. *MET ; 0-110 versus initial 0-45 0-30 degrees active left shoulder ER. *MET 07/16/21; 0- 60 degrees versus initial 0-10 [facility] Goals 1. Karolina will be modified independent with upper extremity home exercise program utilizing provided written and visual instructions from therapist. 2. Karolina will present with improved functional abilities of the left hand; this will be evidenced by Karolina obtaining a score of 25.0 or less on the QuickDASH UE Outcome Measure. - Treatment 2 Descriptor Object manipulation. Functional movement patterns. Removal of taped items to left of body slightly above shoulder height/at shoulder height. Removal of resistant clothespins from overhead. Removal of get-a-licensing court magistrate clothespins above shoulder height (fatigued; able to complete 25% today at eye- level or higher). Management of small/medium sized rings to left of body. 1 Descriptor UE weight bearing. Trunk flexion/ext at EOM. Hand positioned w/ sh abd. Exercises 4 Descriptor UE ROM. Upper trap stretch. Pec stretch. Manual/ROM by therapist L UE. Seated cane L UE stretch ( diagonal to left of body). Wall/finger walk with towel. 1x10. 2 Descriptor Supine. Sh flex. 3# ankle weight. 3x10 . Sh abd. 2# ankle weight. 3x10. Sh hor abd and ER. 2# ankle weight. 3x10. Blocking at elbow. ER. 2# ankle weight. 3x10. Blocking provided. PNF diagonal. Right hip <-> external space. 3x10. Removal of weight. 1 Descriptor Arm pulleys. x 3 minutes. Bilateral. Seated. Frontal plane. x 3 minutes. Bilateral. Seated. Snow griffin. - Assessment Assessment of Improvement c/o decreased efficiency w/ task completion w/ active incorporation of the left hand . Increasing ability to complete tasks above shoulder height prior to reaching fatigue with use of the left upper extremity. Increased efficiency with removal of taped items slightly above shoulder height/at shoulder height to left of the body. Increased resistance w/ sh flex supine exercise, indicating some improvements in strength. Removal of weight w/ PNF diagonal to focus on quality of execution and extending elbow in diagonal to left of body w/ reducing therapist assist. Introduced an activity to support efficiency with object manipulation; recommend carrying over to other activities as able. Overall, good session. Karolina would likely benefit from outpatient OT to address L UE weakness, motor planning, awareness of L UE in space, and functional abilities to support Karolina's success with active participation in meaningful activities in a variety of environments. Recommend working on pain-free ROM, strength, kinesthetic/ proprioceptive awareness of UE , bimanual coordination, eye- hand coordination/reaction time, and functional abilities . Home Exercise Program No additional changes were recommended. - Plan Therapy Recommendations Continue with Current Program, Advance per Rehabilitation Protocol
--- NOTE | 2021-08-18 10:54 | OT.OP.TRT ---
Visit Care Team Role Provider Type Xiomara Diego DO Attending Provider Physician Primary Care Provider Referring Provider Specialty: Family Practice Address: [address] [place] [address], [place], [address] Email: [email or web address] Occupational Therapy Treatment Note OT Outpatient Treatment Note - Adult Start: 03/26/21 15:29 Freq: Status: Active Protocol: Document 08/18/21 10:47 AMS (Rec: 08/18/21 10:54 AMS [id number]) OT Outpatient Adult Treatment Note Session Time Visit Start Time 09:30 Visit Stop Time 10:25 Total Visit Minutes 55 Visit Information Visit Number 02/05; visits => 20th visit KX modifier Plan of Care Dates 07/16/21 - 10/08/21 Insurance Information Medicare Setting Treatment Setting Outpatient Care Visit Type Note Type Treatment Note General Information General Information Patient is a 65 year-old right hand dominant female referred to outpatient OT secondary to thalamic CVA resulting in left sided weakness. PMH: Significant for back pain; diabetes II; neuropathy; stroke/TIA; bilateral rotator cuff tears w/ PT as treatment. - Subjective Identification Type Name Identification Reconciled With Medical Record Observations I am still having a hard time folding laundry. I can't get the clothing to air out. I am not able to wrap [facility] presents per Karolina. Patient/Caregiver Compliance with Home Good Exercise Program - Objective Objective Measurements Please refer to below for progress towards meeting established OT goals. Short Term Goals 1. 0-120 degrees active left shoulder flexion. 07/16/21 = GOAL UPGRADED 2. 0-85 degrees active left shoulder abduction. 07/16/21= 75% met GOALS MET 0-100 degrees left active elbow flexion. *MET 05/22/21 0- 135 versus initial 0-90 Avg 15.0# of force w/ L dynamometer II strength testing. *MET 05/22/21; avg 20. 0# of force. 0-60 degrees left active sh flex. *MET 05/22/21; 0-80 versus initial 0-45 0-60 degrees left active sh abd. *MET 05/22/21; 0-75 versus initial 0-47 0-100 degrees active left shoulder flexion. *MET ; 0-110 versus initial 0-45 0-30 degrees active left shoulder ER. *MET 07/16/21; 0- 60 degrees versus initial 0-10 User Interface Designer Goals 1. Karolina will be modified independent with upper extremity home exercise program utilizing provided written and visual instructions from therapist. 2. Karolina will present with improved functional abilities of the left hand; this will be evidenced by Karolina obtaining a score of 25.0 or less on the QuickDASH UE Outcome Measure. - Treatment 2 Descriptor Object manipulation. Functional movement patterns. Removal of taped items to left of body slightly above shoulder height/at shoulder height. Removal of resistant clothespins from overhead. Removal of get-a-weatherization installer clothespins above shoulder height (to left of body at or below shoulder height). 1 Descriptor UE weight bearing. Trunk flexion/ext at EOM. Hand positioned w/ sh abd. Exercises 4 Descriptor UE ROM. Upper trap stretch. Pec stretch. Manual/ROM by therapist L UE. Dissociation. Weight bearing left hand on bolster/neck rotation to the right. Supine. Hands behind head/ER. Working towards being able to extend elbows while supine w/ this stretch. 2 Descriptor Supine. Sh flex. 3# ankle weight. 3x10 . Sh abd. 2# ankle weight. 3x10. Sh hor abd and ER. 2# ankle weight. 3x10. Blocking at elbow. ER. 2# ankle weight. 3x10. Blocking provided. PNF diagonal. Right hip <-> external space. 3x10. Removal of weight. 1 Descriptor UBE. x 5 minutes. Seated. B UEs. - Assessment Assessment of Improvement c/o decreased efficiency w/ task completion w/ active incorporation of the left hand . continued c/o left shoulder tightness. Increasing ability to complete tasks above shoulder height prior to reaching fatigue with use of the left upper extremity. Tendency to shoulder hike when completing tasks to left of body particularly when near/at /or above shoulder height. Overall, good session. Karolina would likely benefit from outpatient OT to address L UE weakness, motor planning, awareness of L UE in space, and functional abilities to support Karolina's success with active participation in meaningful activities in a variety of environments. Recommend working on pain-free ROM, strength, kinesthetic/ proprioceptive awareness of UE , bimanual coordination, eye- hand coordination/reaction time, and functional abilities . Home Exercise Program Recommend bilateral ER supine with extending elbow as tolerated. Practiced in treatment session. All questions were answered. Recommended staying within pain-free ROM/stretch versus pain. - Plan Therapy Recommendations Continue with Current Program, Advance per Rehabilitation Protocol
--- NOTE | 2021-08-20 13:04 | OT.OP.TRT ---
Visit Care Team Role Provider Type Xiomara Diego DO Attending Provider Physician Primary Care Provider Referring Provider Specialty: Family Practice Address: [address] [place] [address], [place], [address] Email: [email or web address] Occupational Therapy Treatment Note OT Outpatient Treatment Note - Adult Start: 03/26/21 15:29 Freq: Status: Active Protocol: Document 08/20/21 13:00 AMS (Rec: 08/20/21 13:04 AMS [id number]) OT Outpatient Adult Treatment Note Session Time Visit Start Time 09:45 Visit Stop Time 10:28 Total Visit Minutes 43 Visit Information Visit Number 03/07; visits => 20th visit KX modifier Plan of Care Dates 07/16/21 - 10/08/21 Insurance Information Medicare Setting Treatment Setting Outpatient Care Visit Type Note Type Treatment Note General Information General Information Patient is a 65 year-old right hand dominant female referred to outpatient OT secondary to thalamic CVA resulting in left sided weakness. PMH: Significant for back pain; diabetes II; neuropathy; stroke/TIA; bilateral rotator cuff tears w/ PT as treatment. - Subjective Identification Type Name Identification Reconciled With Medical Record Observations This arm feels looser today per Karolina. Patient/Caregiver Compliance with Home Good Exercise Program - Objective Objective Measurements Please refer to below for progress towards meeting established OT goals. Short Term Goals 1. 0-120 degrees active left shoulder flexion. 07/16/21 = GOAL UPGRADED 2. 0-85 degrees active left shoulder abduction. 07/16/21= 75% met GOALS MET 0-100 degrees left active elbow flexion. *MET 05/22/21 0- 135 versus initial 0-90 Avg 15.0# of force w/ L dynamometer II strength testing. *MET 05/22/21; avg 20. 0# of force. 0-60 degrees left active sh flex. *MET 05/22/21; 0-80 versus initial 0-45 0-60 degrees left active sh abd. *MET 05/22/21; 0-75 versus initial 0-47 0-100 degrees active left shoulder flexion. *MET ; 0-110 versus initial 0-45 0-30 degrees active left shoulder ER. *MET 07/16/21; 0- 60 degrees versus initial 0-10 Retail Merchandising Coordinator Goals 1. Karolina will be modified independent with upper extremity home exercise program utilizing provided written and visual instructions from therapist. 2. Karolina will present with improved functional abilities of the left hand; this will be evidenced by Karolina obtaining a score of 25.0 or less on the QuickDASH UE Outcome Measure. - Treatment 2 Descriptor Object manipulation. Functional movement patterns. Removal of taped items to left of body slightly above shoulder height/at shoulder height. Removal of get-a-greenskeeper clothespins above shoulder height (to left of body at or below shoulder height). 1 Descriptor UE weight bearing. Trunk flexion/ext at EOM. Hand positioned w/ sh abd. Exercises 4 Descriptor UE ROM. Upper trap stretch. Pec stretch. Manual/ROM by therapist L UE. Dissociation. Weight bearing left hand on bolster/neck rotation to the right. Lateral trunk stretch/ facilitation of lateral trunk extension/giles. 2 Descriptor Supine. Sh flex. 3# ankle weight. 3x10 . Sh abd. 2# ankle weight. 3x10. Sh hor abd and ER. 2# ankle weight. 3x10. Blocking at elbow. ER. 2# ankle weight. 3x10. Blocking provided. PNF diagonal. Right hip <-> external space. 3x10. Removal of weight. 1 Descriptor UBE. x 5 minutes. Seated. B UEs. - Assessment Assessment of Improvement Report of decreased stiffness in left shoulder/UE when presenting to treatment session. Introduced lateral trunk extension stretch/ cresent giles while supine. (+) response to this stretch/ exercise. Increasing ability to complete tasks above shoulder height prior to reaching fatigue with use of the left upper extremity. Tendency to shoulder hike when completing tasks to left of body particularly when near/at /or above shoulder height. Overall, good session. Karolina would likely benefit from outpatient OT to address L UE weakness, motor planning, awareness of L UE in space, and functional abilities to support Karolina's success with active participation in meaningful activities in a variety of environments. Recommend working on pain-free ROM, strength, kinesthetic/ proprioceptive awareness of UE , bimanual coordination, eye- hand coordination/reaction time, and functional abilities . - Plan Therapy Recommendations Continue with Current Program, Advance per Rehabilitation Protocol
--- NOTE | 2021-09-01 11:19 | OT.OP.TRT ---
Visit Care Team Role Provider Type Xiomara Diego DO Attending Provider Physician Primary Care Provider Referring Provider Specialty: Family Practice Address: [address] [place] [address], [place], [address] Email: [email or web address] Occupational Therapy Treatment Note OT Outpatient Treatment Note - Adult Start: 03/26/21 15:29 Freq: Status: Active Protocol: Document 09/01/21 11:13 AMS (Rec: 09/01/21 11:19 AMS [id number]) OT Outpatient Adult Treatment Note Session Time Visit Start Time 09:30 Visit Stop Time 10:18 Total Visit Minutes 48 Visit Information Visit Number 04/07; 09/16 visits => 20th visit KX modifier Plan of Care Dates 07/16/21 - 10/08/21 Insurance Information Medicare Setting Treatment Setting Outpatient Care Visit Type Note Type Treatment Note General Information General Information Patient is a 65 year-old right hand dominant female referred to outpatient OT secondary to thalamic CVA resulting in left sided weakness. PMH: Significant for back pain; diabetes II; neuropathy; stroke/TIA; bilateral rotator cuff tears w/ PT as treatment. - Subjective Identification Type Name Identification Reconciled With Medical Record Observations I still can't wrap presents and I am dropping things with this hand per Karolina. Patient/Caregiver Compliance with Home Good Exercise Program - Objective Objective Measurements Please refer to below for progress towards meeting established OT goals. Short Term Goals 1. 0-120 degrees active left shoulder flexion. 07/16/21 = GOAL UPGRADED 2. 0-85 degrees active left shoulder abduction. 07/16/21= 75% met GOALS MET 0-100 degrees left active elbow flexion. *MET 05/22/21 0- 135 versus initial 0-90 Avg 15.0# of force w/ L dynamometer II strength testing. *MET 05/22/21; avg 20. 0# of force. 0-60 degrees left active sh flex. *MET 05/22/21; 0-80 versus initial 0-45 0-60 degrees left active sh abd. *MET 05/22/21; 0-75 versus initial 0-47 0-100 degrees active left shoulder flexion. *MET ; 0-110 versus initial 0-45 0-30 degrees active left shoulder ER. *MET 07/16/21; 0- 60 degrees versus initial 0-10 Search Optimization Analyst Goals 1. Karolina will be modified independent with upper extremity home exercise program utilizing provided written and visual instructions from therapist. 2. Karolina will present with improved functional abilities of the left hand; this will be evidenced by Karolina obtaining a score of 25.0 or less on the QuickDASH UE Outcome Measure. - Treatment 2 Descriptor Object manipulation. Functional movement patterns. Removal of taped items to left of body slightly above shoulder height/at shoulder height. Removal of get-a-security system analyst clothespins above shoulder height (to left of body at or below shoulder height). 1 Descriptor UE weight bearing. Trunk flexion/ext at EOM. Hand positioned w/ sh abd. Exercises 4 Descriptor UE ROM. Upper trap stretch. Pec stretch. Manual/ROM by therapist L UE. Dissociation. Weight bearing left hand on bolster/neck rotation to the right. Lateral trunk stretch/ facilitation of lateral trunk extension/giles. 2 Descriptor Supine. Sh flex. 3# ankle weight. 3x10 . Sh abd. 2# ankle weight. 3x10. Sh hor abd and ER. 2# ankle weight. 3x10. Blocking at elbow. ER. 2# ankle weight. 3x10. Blocking provided. PNF diagonal. Right hip <-> external space. 3x10. Removal of weight. 1 Descriptor Arm Pulleys. x 5 minutes. Seated. B UEs. - Assessment Assessment of Improvement Tendency into shoulder elevation of the left shoulder (shoulder hike) when completing tasks to left of body particularly when near/at /or above shoulder height. Tightness of anterior chest/ left shoulder; IR. Recommend considering sidelying exercises and/or progressing to some seated strengthening of the left upper extremity (e .g., sh flexion). Overall, good session. Karolina would likely benefit from outpatient OT to address L UE weakness, motor planning, awareness of L UE in space, and functional abilities to support Karolina's success with active participation in meaningful activities in a variety of environments. Recommend working on pain-free ROM, strength, kinesthetic/ proprioceptive awareness of UE , bimanual coordination, eye- hand coordination/reaction time, and functional abilities . Home Exercise Program Recommend stretching anterior shoulder via wall; recommended carry-over of snow angels seated and backstroke. - Plan Therapy Recommendations Continue with Current Program, Advance per Rehabilitation Protocol
--- NOTE | 2021-09-08 16:01 | OT.OP.TRT ---
Visit Care Team Role Provider Type Xiomara Diego DO Attending Provider Physician Primary Care Provider Referring Provider Specialty: Family Practice Address: [address] [place] [address], [id number] Email: [email or web address] Occupational Therapy Treatment Note OT Outpatient Treatment Note - Adult Start: 03/26/21 15:29 Freq: Status: Active Protocol: Document 09/08/21 15:52 AMS (Rec: 09/08/21 16:01 AMS [id number]) OT Outpatient Adult Treatment Note Session Time Visit Start Time 09:30 Visit Stop Time 10:18 Total Visit Minutes 48 Visit Information Visit Number 05/08; 10/17 visits => 20th visit KX modifier Plan of Care Dates 07/16/21 - 10/08/21 Insurance Information Medicare Setting Treatment Setting Outpatient Care Visit Type Note Type Treatment Note General Information General Information Patient is a 65 year-old right hand dominant female referred to outpatient OT secondary to thalamic CVA resulting in left sided weakness. PMH: Significant for back pain; diabetes II; neuropathy; stroke/TIA; bilateral rotator cuff tears w/ PT as treatment. - Subjective Identification Type Name Identification Reconciled With Medical Record Observations I felt like I was at a standstill with this arm per Karolina. Patient/Caregiver Compliance with Home Good Exercise Program - Objective Objective Measurements Please refer to below for progress towards meeting established OT goals. Short Term Goals 1. 0-120 degrees active left shoulder flexion. 07/16/21 = GOAL UPGRADED 2. 0-85 degrees active left shoulder abduction. 07/16/21= 75% met GOALS MET 0-100 degrees left active elbow flexion. *MET 05/22/21 0- 135 versus initial 0-90 Avg 15.0# of force w/ L dynamometer II strength testing. *MET 05/22/21; avg 20. 0# of force. 0-60 degrees left active sh flex. *MET 05/22/21; 0-80 versus initial 0-45 0-60 degrees left active sh abd. *MET 05/22/21; 0-75 versus initial 0-47 0-100 degrees active left shoulder flexion. *MET ; 0-110 versus initial 0-45 0-30 degrees active left shoulder ER. *MET 07/16/21; 0- 60 degrees versus initial 0-10 Pot Liner Goals 1. Karolina will be modified independent with upper extremity home exercise program utilizing provided written and visual instructions from therapist. 2. Karolina will present with improved functional abilities of the left hand; this will be evidenced by Karolina obtaining a score of 25.0 or less on the QuickDASH UE Outcome Measure. - Treatment 2 Descriptor Object manipulation. Functional movement patterns. Whitten bag toss activities w/ L UE. Frisbee. Retrieval from midline/posterior body. Pass from R to L behind back. Retrieval from cross body. Underhand toss standing. Mod fast pitch standing. Alt arm movements. Replication of gait. Anterior/posterior body space. 1 Descriptor UE weight bearing. Exercises 4 Descriptor UE ROM. Upper trap stretch. Pec stretch. Manual/ROM by therapist L UE. Use of cane. Posterior stretches. 3 Descriptor Seated Sh strengthening. Sh flex. 1# DB. 3x10. Sh abd. 1# DB. 3x10. Sh press. 1# DB. 3x10. Min phys assist. Sh ext. 1# DB. 3x10. 2 Descriptor Supine. Sh flex. 3# ankle weight. 3x10 . Sh abd. 2# ankle weight. 3x10. Sh hor abd and ER. 2# ankle weight. 3x10. Blocking at elbow. ER. 2# ankle weight. 3x10. Blocking provided. PNF diagonal. Right hip <-> external space. 3x10. Removal of weight. 1 Descriptor UEB x 5 minutes. Seated. B UEs . - Assessment Assessment of Improvement Tendency into shoulder elevation of the left shoulder (shoulder hike) when completing tasks to left of body particularly when near/at /or above shoulder height. Tightness of anterior chest/ left shoulder; IR. Upgraded some of the UE strengthening exercises to sitting. Maximum difficulty maintaining thumb up position coupled with elbow extension with shoulder abduction. Introduced additional exercises to posterior space to support functional abilities/movement patterns. Recommend considering sidelying UE therapeutic exercises. Overall , good session. Karolina would likely benefit from outpatient OT to address L UE weakness, motor planning, awareness of L UE in space, and functional abilities to support Karolina's success with active participation in meaningful activities in a variety of environments. Recommend working on pain-free ROM, strength, kinesthetic/ proprioceptive awareness of UE , bimanual coordination, eye- hand coordination/reaction time, and functional abilities . Home Exercise Program Recommended use of cane for shoulder extension and working on bringing L hand towards posterior R hip. - Plan Therapy Recommendations Continue with Current Program, Advance per Rehabilitation Protocol
--- NOTE | 2021-09-10 10:48 | OT.OPPN ---
Current Diagnoses Cerebral infarction, unspecified (09/10/21) Other symptoms and signs involving the musculoskeletal system (09/10/21) OT Progress Note OT Outpatient Treatment Note - Adult Start: 03/26/21 15:29 Freq: Status: Active Protocol: Document 09/10/21 10:29 AMS (Rec: 09/10/21 10:47 AMS [id number]) OT Outpatient Adult Treatment Note Session Time Visit Start Time 09:30 Visit Stop Time 10:18 Total Visit Minutes 48 Visit Information Visit Number 09/07; 10/17 visits => 20th visit KX modifier Plan of Care Dates 09/10/21 - Insurance Information Medicare Setting Treatment Setting Outpatient Care Visit Type Note Type Progress Note General Information General Information Patient is a 65 year-old right hand dominant female referred to outpatient OT secondary to thalamic CVA resulting in left sided weakness. PMH: Significant for back pain; diabetes II; neuropathy; stroke/TIA; bilateral rotator cuff tears w/ PT as treatment. - Subjective Identification Type Name Identification Reconciled With Medical Record Observations I partially tore my right bicep. This bicep has been sore per Karolina in re: L UE. Patient/Caregiver Compliance with Home Good Exercise Program - Objective Objective Measurements Please refer to below for progress towards meeting established OT goals. Short Term Goals 1. 0-120 degrees active left shoulder flexion. 09/10/21 = 75 % met 2. 0-85 degrees active left shoulder abduction. 09/10/21= 75% met GOALS MET 0-100 degrees left active elbow flexion. *MET 05/22/21 0- 135 versus initial 0-90 Avg 15.0# of force w/ L dynamometer II strength testing. *MET 05/22/21; avg 20. 0# of force. 0-60 degrees left active sh flex. *MET 05/22/21; 0-80 versus initial 0-45 0-60 degrees left active sh abd. *MET 05/22/21; 0-75 versus initial 0-47 0-100 degrees active left shoulder flexion. *MET ; 0-110 versus initial 0-45 0-30 degrees active left shoulder ER. *MET 07/16/21; 0- 60 degrees versus initial 0-10 Shelter Goals 1. Karolina will be modified independent with upper extremity home exercise program utilizing provided written and visual instructions from therapist. 2. Karolina will present with improved functional abilities of the left hand; this will be evidenced by Karolina obtaining a score of 25.0 or less on the QuickDASH UE Outcome Measure. - Treatment 2 Descriptor Object manipulation. Functional movement patterns. Whitten bag toss activities w/ L UE. Retrieval from midline/ posterior body at tailbone/ lower back and at neck level. Retrieval from mat in posterior space. Alt arm movements. Anterior/ posterior body space. 1 Descriptor UE weight bearing. Exercises 4 Descriptor UE ROM. Upper trap stretch. Pec stretch. Manual/ROM by therapist L UE. Addressed pec tightness and distal bicep tightness at site of insertion. Chest stretch w/ sh ext bilateral. 3 Descriptor Seated Sh strengthening. Sh flex. 1# DB. 3x10. Sh abd. 1# DB. 3x10. Sh ext. 1# DB. 3x10. w/ forearm supination. Forearm supination. 1# DB. 3x10. Tricep extension. TB#1. 3x10. 1 Descriptor UEB x 5 minutes. Seated. B UEs . - Assessment Assessment of Improvement Karolina has made some progress over the last certification period; she is reporting decreasing pain/discomfort of the left shoulder and is demonstrating improving motor coordination of the left upper extremity and awareness of the left upper extremity in space. Therapist has been able to transition to seated UE strengthening with some exercises and has been able to introduce functional movement patterns attending to posterior space/body. Karolina verbalizes frustration and/or concerns re: decreased ability to fully extend elbow, decreased arm swing with gait (which PT is targeting in sessions), and decreased motor planning speed of the left hand/upper extremity which impacts her ability to wrap, cook, and do other functional tasks. Activities/exercises have been introduced to work towards these goals. Karolina continues to demonstrate shoulder elevation of the left shoulder (shoulder hike) when completing tasks to left of body particularly when near/at /or above shoulder height. She also has difficulty with extending her elbow to left of the body without resistance. Karolina would likely continue benefit from outpatient OT to address L UE weakness, motor planning, awareness of L UE in space, and functional abilities to support Karolina's success with active participation in meaningful activities in a variety of environments. Recommend considering sidelying for posterior shoulder strengthening, testing elbow strength given full ROM Home Exercise Program Provided TB #1 for home use; recommended working on tricep extension at low height and progressing to pec exercise as able. Practiced in treatment session. Also recommended opening cabinets/drawers with the left hand/managing light switches with the left hand to support motor planning of the left upper extremity. - Plan Therapy Recommendations Continue with Current Program, Advance per Rehabilitation Protocol Comment 12 weeks Comment 1 to 2 times per week Therapeutic Contents Active Range of Motion, Adaptive Equipment Education, Client Education,Cognitive Skills Development,Functional Activities,Home Exercise Program,Joint Protection, Manual Therapy,Education, Neurodevelopment Treatment, Neuromuscular Re-Education, Self-Care,Stretching/ Flexibility Activities, Therapeutic Activities, Therapeutic Exercises, Modalities,Sensory Re- education Additional Types of Modalities Heat/Ice pack/E-stim Please Sign and Return: I have reviewed this Plan of Care and certify that the skilled therapy services above are required to meet the patient?s needs. Physician Signature Date Printed Name and Credentials Clinical Instructor Signature Printed Name and Credentials
--- NOTE | 2021-09-15 15:45 | OT.OP.TRT ---
Visit Care Team Role Provider Type Xiomara Diego DO Attending Provider Physician Primary Care Provider Referring Provider Specialty: Family Practice Address: [address] [place] [address], [place], [address] Email: [email or web address] Occupational Therapy Treatment Note OT Outpatient Treatment Note - Adult Start: 03/26/21 15:29 Freq: Status: Active Protocol: Document 09/15/21 15:39 AMS (Rec: 09/15/21 15:45 AMS [id number]) OT Outpatient Adult Treatment Note Session Time Visit Start Time 13:30 Visit Stop Time 14:20 Total Visit Minutes 50 Visit Information Visit Number 10/08; 11/14 visits => 20th visit KX modifier Plan of Care Dates 09/10/21 - Insurance Information Medicare Setting Treatment Setting Outpatient Care Visit Type Note Type Treatment Note General Information General Information Patient is a 65 year-old right hand dominant female referred to outpatient OT secondary to thalamic CVA resulting in left sided weakness. PMH: Significant for back pain; diabetes II; neuropathy; stroke/TIA; bilateral rotator cuff tears w/ PT as treatment. - Subjective Identification Type Name Identification Reconciled With Medical Record Observations No new complaints were reported by Karolina. Patient/Caregiver Compliance with Home Good Exercise Program - Objective Objective Measurements Please refer to below for progress towards meeting established OT goals. Short Term Goals 1. 0-120 degrees active left shoulder flexion. 09/10/21 = 75 % met 2. 0-85 degrees active left shoulder abduction. 09/10/21= 75% met GOALS MET 0-100 degrees left active elbow flexion. *MET 05/22/21 0- 135 versus initial 0-90 Avg 15.0# of force w/ L dynamometer II strength testing. *MET 05/22/21; avg 20. 0# of force. 0-60 degrees left active sh flex. *MET 05/22/21; 0-80 versus initial 0-45 0-60 degrees left active sh abd. *MET 05/22/21; 0-75 versus initial 0-47 0-100 degrees active left shoulder flexion. *MET ; 0-110 versus initial 0-45 0-30 degrees active left shoulder ER. *MET 07/16/21; 0- 60 degrees versus initial 0-10 Shared Services And Outsourcing Manager Goals 1. Karolina will be modified independent with upper extremity home exercise program utilizing provided written and visual instructions from therapist. 2. Karolina will present with improved functional abilities of the left hand; this will be evidenced by Karolina obtaining a score of 25.0 or less on the QuickDASH UE Outcome Measure. - Treatment 2 Descriptor Object manipulation. Functional movement patterns. Whitten bag toss activities w/ L UE. Retrieval from midline/ posterior body at tailbone/ lower back and at neck level. Retrieval from mat in posterior space. Alt arm movements. Anterior/ posterior body space. 1 Descriptor UE weight bearing. Exercises 4 Descriptor UE ROM. Upper trap stretch. Pec stretch. Manual/ROM by therapist L UE. Addressed pec tightness and distal bicep tightness at site of insertion. Chest stretch w/ sh ext bilateral. 3 Descriptor Seated Sh strengthening. Sh flex. 2# DB 1x10. 1# DB 2x10. Sh abd. 1# DB. 3x10. Sh ext. 1# DB. 3x10. w/ forearm supination. Forearm supination. 1# DB. 3x10. 2 Descriptor Supine. Sh hor abd and ER. 2# DB. 3x10 . Blocking at elbow. 1 Descriptor UEB x 5 minutes. Seated. B UEs . - Assessment Assessment of Improvement Increased resistance w/ 1 set of 10 repetitions w/ sh flex exercise while seated. Unable to progress/increase resistance with other exercises d/t weakness. Worked on opening/closing screw-top lid and stabilizing container to be opened with the left hand. Karolina continues to demonstrate shoulder elevation of the left shoulder ( shoulder hike) when completing tasks to left of body particularly when near/at/or above shoulder height. She also has difficulty with extending her elbow to left of the body without resistance. Karolina would likely continue benefit from outpatient OT to address L UE weakness, motor planning, awareness of L UE in space, and functional abilities to support Karolina's success with active participation in meaningful activities in a variety of environments. Recommend considering sidelying for posterior shoulder strengthening, testing elbow strength given full ROM Home Exercise Program Recommended opening jars and/ or stabilizing jars or containers with the left hand to support meal preparation motor planning. - Plan Therapy Recommendations Continue with Current Program, Advance per Rehabilitation Protocol
--- NOTE | 2021-09-17 11:39 | OT.OP.TRT ---
Visit Care Team Role Provider Type Xiomara Diego DO Attending Provider Physician Primary Care Provider Referring Provider Specialty: Family Practice Address: [address] [place] [address], [place], [address] Email: [email or web address] Occupational Therapy Treatment Note OT Outpatient Treatment Note - Adult Start: 03/26/21 15:29 Freq: Status: Active Protocol: Document 09/17/21 11:28 AMS (Rec: 09/17/21 11:39 AMS [id number]) OT Outpatient Adult Treatment Note Session Time Visit Start Time 08:30 Visit Stop Time 09:15 Total Visit Minutes 45 Visit Information Visit Number 11/05; 12/15 visits => 20th visit KX modifier Plan of Care Dates 09/10/21 - 12/03/21 Insurance Information Medicare Setting Treatment Setting Outpatient Care Visit Type Note Type Treatment Note General Information General Information Patient is a 65 year-old right hand dominant female referred to outpatient OT secondary to thalamic CVA resulting in left sided weakness. PMH: Significant for back pain; diabetes II; neuropathy; stroke/TIA; bilateral rotator cuff tears w/ PT as treatment. - Subjective Identification Type Name Identification Reconciled With Medical Record Observations I draped some clothes over this arm when I got them out of the dryer. I ended up dropping them per Karolina. Yes, I have been practicing opening and closing containers and holding onto them with this hand per Karolina. Patient/Caregiver Compliance with Home Good Exercise Program - Objective Objective Measurements Please refer to below for progress towards meeting established OT goals. Short Term Goals 1. 0-120 degrees active left shoulder flexion. 09/10/21 = 75 % met 2. 0-85 degrees active left shoulder abduction. 09/10/21= 75% met GOALS MET 0-100 degrees left active elbow flexion. *MET 05/22/21 0- 135 versus initial 0-90 Avg 15.0# of force w/ L dynamometer II strength testing. *MET 05/22/21; avg 20. 0# of force. 0-60 degrees left active sh flex. *MET 05/22/21; 0-80 versus initial 0-45 0-60 degrees left active sh abd. *MET 05/22/21; 0-75 versus initial 0-47 0-100 degrees active left shoulder flexion. *MET ; 0-110 versus initial 0-45 0-30 degrees active left shoulder ER. *MET 07/16/21; 0- 60 degrees versus initial 0-10 Correction Goals 1. Karolina will be modified independent with upper extremity home exercise program utilizing provided written and visual instructions from therapist. 2. Karolina will present with improved functional abilities of the left hand; this will be evidenced by Karolina obtaining a score of 25.0 or less on the QuickDASH UE Outcome Measure. - Treatment 2 Descriptor Object manipulation. Functional movement patterns. Whitten bag toss activities w/ L UE. Retrieval from midline/ posterior body at tailbone/ lower back and at neck level. Retrieval from mat in posterior space. Alt arm movements. Anterior/ posterior body space. 1 Descriptor UE weight bearing. Mini wall pushes at wall. Hands positioned at shoulder height. SBA to min phys assist to the L UE provided by therapist to help facilitate ( 2x10). Mini chair dips. EOM. 2x10. Exercises 4 Descriptor UE ROM. Upper trap stretch. Pec stretch. Manual/ROM by therapist L UE. Addressed pec tightness and distal bicep tightness at site of insertion. Chest stretch w/ sh ext bilateral. 3 Descriptor Seated Sh strengthening. Sh flex. 2# DB 2x10. 1# DB 1x10. Sh abd. 2# DB. 1x10. 1# DB 2x10. Sh ext. 2# DB. 3x10. w/ forearm supination. Forearm supination. 2# DB. 3x10. PNF diagonal. 2x10. No weight. 2 Descriptor Supine. Sh hor abd and ER. 2# DB. 3x10 . Blocking at elbow. ER. 2# DB. 3x10. Blocking provided by therapist. 1 Descriptor UEB x 5 minutes. Seated. B UEs . - Assessment Assessment of Improvement Able to increase resistance further w/ some of seated UE strengthening exercises; this suggests improving left upper extremity strength. Introduced mini wall push-ups and mini chair dips to support weight bearing and elbow extension strengthening; difficulty maintaining left hand positioning on wall and extending left elbow through full range of motion. Increased reliance on R UE; recommend revisiting these exercises at time of next treatment session. Karolina continues to demonstrate shoulder elevation of the left shoulder (shoulder hike) when completing tasks to left of body particularly when near/at /or above shoulder height. Improving functional incorporation of the left UE with meal preparation per patient report; however, continued report of dropping items. Thus, need to continue to work on strengthening/motor planning. Overall, good session. Karolina would likely continue benefit from outpatient OT to address L UE weakness, motor planning, awareness of L UE in space, and functional abilities to support Karolina's success with active participation in meaningful activities in a variety of environments. Recommend considering sidelying for posterior shoulder strengthening, testing elbow strength given full ROM Home Exercise Program Recommended mini wall push-ups and/or mini chair-dips. - Plan Therapy Recommendations Continue with Current Program, Advance per Rehabilitation Protocol
--- NOTE | 2021-09-28 11:49 | OT.OP.TRT ---
Visit Care Team Role Provider Type Xiomara Diego DO Attending Provider Physician Primary Care Provider Referring Provider Specialty: Family Practice Address: [address] [place] [address], [place], [address] Email: [email or web address] Occupational Therapy Treatment Note OT Outpatient Treatment Note - Adult Start: 03/26/21 15:29 Freq: Status: Active Protocol: Document 09/28/21 11:36 AMS (Rec: 09/28/21 11:48 AMS [id number]) OT Outpatient Adult Treatment Note Session Time Visit Start Time 08:30 Visit Stop Time 09:15 Total Visit Minutes 45 Visit Information Visit Number 12/06; 01/14 visits => 20th visit KX modifier Plan of Care Dates 09/10/21 - 12/03/21 Insurance Information Medicare Setting Treatment Setting Outpatient Care Visit Type Note Type Treatment Note General Information General Information Patient is a 65 year-old right hand dominant female referred to outpatient OT secondary to thalamic CVA resulting in left sided weakness. PMH: Significant for back pain; diabetes II; neuropathy; stroke/TIA; bilateral rotator cuff tears w/ PT as treatment. - Subjective Identification Type Name Identification Reconciled With Medical Record Observations I want to be able to pick-up my grandkids per Karolina. No, the shoulder doesn't hurt when I am swinging my arm. Yes, it does feel tight. I have to think about it. Patient/Caregiver Compliance with Home Good Exercise Program - Objective Objective Measurements Please refer to below for progress towards meeting established OT goals. Short Term Goals 1. 0-120 degrees active left shoulder flexion. 09/10/21 = 75 % met 2. 0-85 degrees active left shoulder abduction. 09/10/21= 75% met GOALS MET 0-100 degrees left active elbow flexion. *MET 05/22/21 0- 135 versus initial 0-90 Avg 15.0# of force w/ L dynamometer II strength testing. *MET 05/22/21; avg 20. 0# of force. 0-60 degrees left active sh flex. *MET 05/22/21; 0-80 versus initial 0-45 0-60 degrees left active sh abd. *MET 05/22/21; 0-75 versus initial 0-47 0-100 degrees active left shoulder flexion. *MET ; 0-110 versus initial 0-45 0-30 degrees active left shoulder ER. *MET 07/16/21; 0- 60 degrees versus initial 0-10 Retirement Goals 1. Karolina will be modified independent with upper extremity home exercise program utilizing provided written and visual instructions from therapist. 2. Karolina will present with improved functional abilities of the left hand; this will be evidenced by Karolina obtaining a score of 25.0 or less on the QuickDASH UE Outcome Measure. - Treatment 2 Descriptor Object manipulation. Functional movement patterns. Whitten bag toss activities w/ L UE. Retrieval from midline/ posterior body at tailbone/ lower back and at neck level. Retrieval from mat in posterior space. Alt arm movements. Anterior/ posterior body space. 1 Descriptor UE weight bearing. Mini wall pushes at wall. Hands positioned at shoulder height. Mild elbow flex/ext. 1x10. L <-> R weight shifting w/ hands positioned at shoulder height on wall. 2x10. Min phys assist to facilitate. Exercises 4 Descriptor UE ROM. Upper trap stretch. Pec stretch. Manual/ROM by therapist L UE. Addressed pec tightness and distal bicep tightness at site of insertion. Chest stretch w/ sh ext bilateral. 3 Descriptor Seated Sh strengthening. Sh flex. 2# DB 3x10. Sh abd. 2# DB. 3x10. Sh ext. 2# DB. 3x10. w/ forearm supination. Tricep ext. 1# DB. 3x10. Physical assistance provided by therapist for positioning of UE. PNF diagonal. 2x10. No weight. 2 Descriptor Supine. Sh hor abd and ER. 2# DB. 3x10 . Blocking at elbow. ER. 2# DB. 3x10. Blocking provided by therapist. 1 Descriptor UEB x 5 minutes. Seated. B UEs . - Assessment Assessment of Improvement Able to increase repetitions with use of 2# DB with some of UE seated strengthening exercises; this suggests improving left upper extremity strength. Introduced therapist supported tricep kick backs. Improved ability to maintain hand positioned on wall with mini push-ups; fatigue post- 1 x 10. Minimal active elb flex/ext to maintain hand positioned on wall. Introduced L <-> R weight shifting at wall w/ hands positioned at shoulder height. Karolina continues to demonstrate shoulder elevation of the left shoulder ( shoulder hike) when completing tasks to left of body particularly when near/at/or above shoulder height. Improving functional incorporation of the left UE with meal preparation per patient report; however, continued report of dropping items. Thus, need to continue to work on strengthening/motor planning. Overall, good session. Karolina would likely continue benefit from outpatient OT to address L UE weakness, motor planning, awareness of L UE in space, and functional abilities to support Karolina's success with active participation in meaningful activities in a variety of environments. Recommend considering sidelying for posterior shoulder strengthening, testing elbow strength given full ROM - Plan Therapy Recommendations Continue with Current Program, Advance per Rehabilitation Protocol
--- NOTE | 2021-09-30 11:34 | OT.OP.TRT ---
Visit Care Team Role Provider Type Xiomara Diego DO Attending Provider Physician Primary Care Provider Referring Provider Specialty: Family Practice Address: [address] [place] [address], [place], [address] Email: [email or web address] Occupational Therapy Treatment Note OT Outpatient Treatment Note - Adult Start: 03/26/21 15:29 Freq: Status: Active Protocol: Document 09/30/21 11:20 AMS (Rec: 09/30/21 11:34 AMS [id number]) OT Outpatient Adult Treatment Note Session Time Visit Start Time 08:30 Visit Stop Time 09:15 Total Visit Minutes 45 Visit Information Visit Number 01/05; 02/14 visits => 20th visit KX modifier Plan of Care Dates 09/10/21 - 12/03/21 Insurance Information Medicare Setting Treatment Setting Outpatient Care Visit Type Note Type Treatment Note General Information General Information Patient is a 65 year-old right hand dominant female referred to outpatient OT secondary to thalamic CVA resulting in left sided weakness. PMH: Significant for back pain; diabetes II; neuropathy; stroke/TIA; bilateral rotator cuff tears w/ PT as treatment. - Subjective Identification Type Name Identification Reconciled With Medical Record Observations I noticed the other day that I was texting on my phone with this thumb per Karolina. I didn 't even think about it. I just did it. Patient/Caregiver Compliance with Home Good Exercise Program - Objective Objective Measurements Please refer to below for progress towards meeting established OT goals. Short Term Goals 1. 0-120 degrees active left shoulder flexion. 09/10/21 = 75 % met 2. 0-85 degrees active left shoulder abduction. 09/10/21= 75% met GOALS MET 0-100 degrees left active elbow flexion. *MET 05/22/21 0- 135 versus initial 0-90 Avg 15.0# of force w/ L dynamometer II strength testing. *MET 05/22/21; avg 20. 0# of force. 0-60 degrees left active sh flex. *MET 05/22/21; 0-80 versus initial 0-45 0-60 degrees left active sh abd. *MET 05/22/21; 0-75 versus initial 0-47 0-100 degrees active left shoulder flexion. *MET ; 0-110 versus initial 0-45 0-30 degrees active left shoulder ER. *MET 07/16/21; 0- 60 degrees versus initial 0-10 Heel Breaster Goals 1. Karolina will be modified independent with upper extremity home exercise program utilizing provided written and visual instructions from therapist. 2. Karolina will present with improved functional abilities of the left hand; this will be evidenced by Karolina obtaining a score of 25.0 or less on the QuickDASH UE Outcome Measure. - Treatment 2 Descriptor Object manipulation. Functional movement patterns. Whitten bag toss activities w/ L UE. Retrieval from midline/ posterior body at tailbone/ lower back and at neck level. Alt arm movements. Anterior/ posterior body space. 1 Descriptor UE weight bearing. Mini wall push-ups at wall. Hands positioned at shoulder height. Increased elbow flex/ ext compared to previous treatment session. 1x10. L <-> R weight shifting w/ hands positioned at shoulder height on wall. 2x10. Min phys assist to facilitate weight shift to the left. Exercises 4 Descriptor UE ROM. Upper trap stretch. Pec stretch. Manual/ROM by therapist L UE. Addressed pec tightness and distal bicep tightness at site of insertion. Chest stretch w/ sh ext bilateral. 3 Descriptor Seated. UE strengthening. Sh flex. 2# DB 3x10. Sh abd. 2# DB. 3x10. Sh ext. 2# DB. 3x10. w/ forearm supination. Forearm supination/thumb up in prep for sh abd. 2# DB. 2x10. Punches/elbow ext to left of the body. 2# DB. 2x10. PNF diagonal. 2x10. No weight. 2 Descriptor Supine. Sh hor abd and ER. 2# DB. 3x10 . Blocking at elbow. ER. 2# DB. 3x10. Blocking provided by therapist. Elbow extension. 2# DB. 3x10. Blocking provided by therapist . 1 Descriptor UEB x 5 minutes. Seated. B UEs . - Assessment Assessment of Improvement Improved ability to maintain hand positioned on wall with mini push-ups with increased range of motion at elbow; fatigue post- 1 x 10. Introduced additional strengthening exercises based on observations/motor planning difficulties. Able to transfer 5# weighted tub from 4-inches off of floor to lap and with trunk rotation ( transferring tub to the left and right of the body) while seated with no observed difficulties. Improving spontaneous functional incorporation of the left UE based on patient report; spontaneously texting with incorporation of the left thumb with use of personal cell phone and managing chicken feed bags! 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 Overall, good session. Karolina would likely continue benefit from outpatient OT to address L UE weakness, motor planning, awareness of L UE in space, and functional abilities to support Karolina's success with active participation in meaningful activities in a variety of environments. RECOMMEND: Large arm circles at wall --> facing wall; introducing 3# DB /weights as able; work on PNF diagonals/use of the left upper extremity to the left of the body - Plan Therapy Recommendations Continue with Current Program, Advance per Rehabilitation Protocol
--- NOTE | 2021-10-15 12:04 | OT.OP.TRT ---
Visit Care Team Role Provider Type Xiomara Diego DO Attending Provider Physician Primary Care Provider Referring Provider Specialty: Family Practice Address: [address] [place] [address], [place], [address] Email: [email or web address] Occupational Therapy Treatment Note OT Outpatient Treatment Note - Adult Start: 03/26/21 15:29 Freq: Status: Active Protocol: Document 10/15/21 11:54 AMS (Rec: 10/15/21 12:03 AMS [id number]) OT Outpatient Adult Treatment Note Session Time Visit Start Time 09:30 Visit Stop Time 10:18 Total Visit Minutes 48 Visit Information Visit Number 02/05; 03/16 visits => 20th visit KX modifier Plan of Care Dates 09/10/21 - 12/03/21 Insurance Information Medicare Setting Treatment Setting Outpatient Care Visit Type Note Type Treatment Note General Information General Information Patient is a 65 year-old right hand dominant female referred to outpatient OT secondary to thalamic CVA resulting in left sided weakness. PMH: Significant for back pain; diabetes II; neuropathy; stroke/TIA; bilateral rotator cuff tears w/ PT as treatment. - Subjective Identification Type Name Identification Reconciled With Medical Record Observations I have been doing the push- ups on my kitchen counter. I will have to work on it more per Karolina. Patient/Caregiver Compliance with Home Good Exercise Program - Objective Objective Measurements Please refer to below for progress towards meeting established OT goals. Short Term Goals 1. 0-120 degrees active left shoulder flexion. 09/10/21 = 75 % met 2. 0-85 degrees active left shoulder abduction. 09/10/21= 75% met GOALS MET 0-100 degrees left active elbow flexion. *MET 05/22/21 0- 135 versus initial 0-90 Avg 15.0# of force w/ L dynamometer II strength testing. *MET 05/22/21; avg 20. 0# of force. 0-60 degrees left active sh flex. *MET 05/22/21; 0-80 versus initial 0-45 0-60 degrees left active sh abd. *MET 05/22/21; 0-75 versus initial 0-47 0-100 degrees active left shoulder flexion. *MET ; 0-110 versus initial 0-45 0-30 degrees active left shoulder ER. *MET 07/16/21; 0- 60 degrees versus initial 0-10 Fpc Goals 1. Karolina will be modified independent with upper extremity home exercise program utilizing provided written and visual instructions from therapist. 2. Karolina will present with improved functional abilities of the left hand; this will be evidenced by Karolina obtaining a score of 25.0 or less on the QuickDASH UE Outcome Measure. - Treatment 2 Descriptor Object manipulation. Functional movement patterns. Whitten bag toss activities w/ L UE. Retrieval from midline/ posterior body at tailbone/ lower back and at neck level. Alt arm movements. Anterior/ posterior body space. 1 Descriptor UE weight bearing. Mini wall push-ups at wall. Hands positioned at shoulder height. Increased elbow flex/ ext compared to previous treatment session. 1x10. L <-> R weight shifting w/ hands positioned at shoulder height on wall. 2x10. Min phys assist to facilitate weight shift to the left. Exercises 4 Descriptor UE ROM. Upper trap stretch. Pec stretch. Manual/ROM by therapist L UE. Addressed pec tightness and distal bicep tightness at site of insertion. Chest stretch w/ sh ext bilateral. 3 Descriptor Seated. UE strengthening. Sh flex. 2# DB 3x10. Sh abd. 2# DB. 3x10. Sh ext. 2# DB. 3x10. w/ forearm supination. Forearm supination/thumb up in prep for sh abd. 2# DB. 2x10. PNF diagonal. 2x10. No weight. 2 Descriptor Supine. Sh hor abd and ER. 2# DB. 3x10 . Blocking at elbow. ER. 2# DB. 3x10. Blocking provided by therapist. Elbow extension. 2# DB. 3x10. Blocking provided by therapist . Chest press. 3# DB. 3x10. Intermittent phys cueing provided. 1 Descriptor UEB x 5 minutes. Seated. B UEs . - Assessment Assessment of Improvement Decreasing number of rest breaks needed; decreased length of rest breaks needed. Patient report of functional incorporation of the upper extremity in day-to-day life. Decreased coordination of the left hand with completion of unilateral and bilateral tasks away from base of support (e. g., putting granddaughter's hair in pony tail; getting a glass of water for granddaughter from refrigerator). Decreased ability to maintain left hand positioned flat on wall w/ mini wall push-ups; reportedly has been using kitchen countertop for this exercise. Good execution w/ use of railing within clinic approx waist height. Overall, good session. Karolina would likely continue benefit from outpatient OT to address L UE weakness, motor planning, awareness of L UE in space, and functional abilities to support Karolina's success with active participation in meaningful activities in a variety of environments. RECOMMEND: Large arm circles at wall --> facing wall; introducing 3# DB /weights as able; work on PNF diagonals/use of the left upper extremity to the left of the body - Plan Therapy Recommendations Continue with Current Program, Advance per Rehabilitation Protocol
--- NOTE | 2021-10-20 15:37 | OT.OP.TRT ---
Visit Care Team Role Provider Type Xiomara Diego DO Attending Provider Physician Primary Care Provider Referring Provider Specialty: Family Practice Address: [address] [place] [address], [place], [address] Email: [email or web address] Occupational Therapy Treatment Note OT Outpatient Treatment Note - Adult Start: 03/26/21 15:29 Freq: Status: Active Protocol: Document 10/20/21 15:30 AMS (Rec: 10/20/21 15:36 AMS [id number]) OT Outpatient Adult Treatment Note Session Time Visit Start Time 10:30 Visit Stop Time 11:18 Total Visit Minutes 48 Visit Information Visit Number 03/07; 04/16 visits => 20th visit KX modifier Plan of Care Dates 09/10/21 - 12/03/21 Insurance Information Medicare Setting Treatment Setting Outpatient Care Visit Type Note Type Treatment Note General Information General Information Patient is a 65 year-old right hand dominant female referred to outpatient OT secondary to thalamic CVA resulting in left sided weakness. PMH: Significant for back pain; diabetes II; neuropathy; stroke/TIA; bilateral rotator cuff tears w/ PT as treatment. - Subjective Identification Type Name Identification Reconciled With Medical Record Observations Folding laundry is better but it is still messy per Karolina. Patient/Caregiver Compliance with Home Good Exercise Program - Objective Objective Measurements Please refer to below for progress towards meeting established OT goals. Short Term Goals 1. 0-120 degrees active left shoulder flexion. 09/10/21 = 75 % met 2. 0-85 degrees active left shoulder abduction. 09/10/21= 75% met GOALS MET 0-100 degrees left active elbow flexion. *MET 05/22/21 0- 135 versus initial 0-90 Avg 15.0# of force w/ L dynamometer II strength testing. *MET 05/22/21; avg 20. 0# of force. 0-60 degrees left active sh flex. *MET 05/22/21; 0-80 versus initial 0-45 0-60 degrees left active sh abd. *MET 05/22/21; 0-75 versus initial 0-47 0-100 degrees active left shoulder flexion. *MET ; 0-110 versus initial 0-45 0-30 degrees active left shoulder ER. *MET 07/16/21; 0- 60 degrees versus initial 0-10 Junk Removal Specialist Goals 1. Karolina will be modified independent with upper extremity home exercise program utilizing provided written and visual instructions from therapist. 2. Karolina will present with improved functional abilities of the left hand; this will be evidenced by Karolina obtaining a score of 25.0 or less on the QuickDASH UE Outcome Measure. - Treatment 2 Descriptor Object manipulation. Functional movement patterns. Whitten bag toss activities w/ L UE. Retrieval from midline/ posterior body at tailbone/ lower back and at neck level. Alt arm movements. Anterior/ posterior body space. 1 Descriptor UE weight bearing. Mini wall push-ups at wall. Hands positioned at shoulder height. Increased elbow flex/ ext compared to previous treatment session. 1x10. L <-> R weight shifting w/ hands positioned at shoulder height on wall. 2x10. Min phys assist to facilitate weight shift to the left. Exercises 5 Descriptor Seated row machine. 20# resistance. 3 x 10. 4 Descriptor UE ROM. Upper trap stretch. Pec stretch. Manual/ROM by therapist L UE. Addressed pec tightness and distal bicep tightness at site of insertion. Chest stretch w/ sh ext bilateral. 3 Descriptor Seated. UE strengthening. Sh flex. 3# DB 2 x 10. 2# DB 1 x 10. Sh abd. 2# DB. 3 x 10. Sh ext. 3# DB. 2 x 10. 2# DB 1 x 10. w/ forearm supination. PNF diagonal. 2x10. No weight. 2 Descriptor Supine. Sh hor abd and ER. 2# DB. 3x10 . Blocking at elbow. ER. 2# DB. 3x10. Blocking provided by therapist. Elbow extension. 3# DB. 3x10. Blocking provided by therapist . 1 Descriptor UEB x 5 minutes. Seated. B UEs . - Assessment Assessment of Improvement Patient report of functional incorporation of the upper extremity in day-to-day life. Increasing left upper extremity strength; this is evidenced by ability to increase resistance with some of the upper extremity exercises while seated and supine. Introduced seated row w/ use of machine. Introduced bilateral upper extremity cane exercise (behind head --> shoulder press); recommended practicing of this exercise in the home. Overall, good session. Karolina would likely continue benefit from outpatient OT to address L UE weakness, motor planning, awareness of L UE in space, and functional abilities to support Karolina's success with active participation in meaningful activities in a variety of environments. RECOMMEND: Large arm circles at wall --> facing wall; introducing 3# DB /weights as able; work on PNF diagonals/use of the left upper extremity to the left of the body - Plan Therapy Recommendations Continue with Current Program, Advance per Rehabilitation Protocol
--- NOTE | 2021-10-23 11:55 | OT.OP.TRT ---
Visit Care Team Role Provider Type Xiomara Diego DO Attending Provider Physician Primary Care Provider Referring Provider Specialty: Family Practice Address: [address] [place] [address], [place], [address] Email: [email or web address] Occupational Therapy Treatment Note OT Outpatient Treatment Note - Adult Start: 03/26/21 15:29 Freq: Status: Active Protocol: Document 10/23/21 11:48 AMS (Rec: 10/23/21 11:55 AMS [id number]) OT Outpatient Adult Treatment Note Session Time Visit Start Time 10:30 Visit Stop Time 11:18 Total Visit Minutes 48 Visit Information Visit Number 04/07; 05/17 visits => 20th visit KX modifier Plan of Care Dates 09/10/21 - 12/03/21 Insurance Information Medicare Setting Treatment Setting Outpatient Care Visit Type Note Type Treatment Note General Information General Information Patient is a 65 year-old right hand dominant female referred to outpatient OT secondary to thalamic CVA resulting in left sided weakness. PMH: Significant for back pain; diabetes II; neuropathy; stroke/TIA; bilateral rotator cuff tears w/ PT as treatment. - Subjective Identification Type Name Identification Reconciled With Medical Record Observations I have diabetes. I have to see the eye doctor every year per Karolina. Patient/Caregiver Compliance with Home Good Exercise Program - Objective Objective Measurements Please refer to below for progress towards meeting established OT goals. Short Term Goals 1. 0-120 degrees active left shoulder flexion. 09/10/21 = 75 % met 2. 0-85 degrees active left shoulder abduction. 09/10/21= 75% met GOALS MET 0-100 degrees left active elbow flexion. *MET 05/22/21 0- 135 versus initial 0-90 Avg 15.0# of force w/ L dynamometer II strength testing. *MET 05/22/21; avg 20. 0# of force. 0-60 degrees left active sh flex. *MET 05/22/21; 0-80 versus initial 0-45 0-60 degrees left active sh abd. *MET 05/22/21; 0-75 versus initial 0-47 0-100 degrees active left shoulder flexion. *MET ; 0-110 versus initial 0-45 0-30 degrees active left shoulder ER. *MET 07/16/21; 0- 60 degrees versus initial 0-10 [employer]elry [employer]utter Goals 1. Karolina will be modified independent with upper extremity home exercise program utilizing provided written and visual instructions from therapist. 2. Karolina will present with improved functional abilities of the left hand; this will be evidenced by Karolina obtaining a score of 25.0 or less on the QuickDASH UE Outcome Measure. - Treatment 2 Descriptor Object manipulation. Functional movement patterns. Garcia bag toss/garcia bag transfer activities w/ L UE. Use of singular bolster. Use of 2 bolsters. 1 Descriptor UE weight bearing. Mini wall push-ups at wall. Hands positioned at shoulder height. Increased elbow flex/ ext compared to previous treatment session. 1x10. L <-> R weight shifting w/ hands positioned at shoulder height on wall. 2x10. Min phys assist to facilitate weight shift to the left. Exercises 5 Descriptor Seated. Row machine. 20# resistance. 3 x 15 repetitions . Seated. Lat pulldown. 10# resistance. 3 x 15 repetitions . 4 Descriptor UE ROM. Upper trap stretch. Pec stretch. Manual/ROM by therapist L UE. Addressed pec tightness and distal bicep tightness at site of insertion. Chest stretch w/ sh ext bilateral. 3 Descriptor Seated. UE strengthening. Sh flex. 3# DB 2 x 10. 2# DB 1 x 10. Sh abd. 2# DB. 3 x 10. Sh ext. 3# DB. 2 x 10. 2# DB 1 x 10. w/ forearm supination. Pec press/hor abd/add. 3 x 10. 2 Descriptor Supine. Sh hor abd and ER. 2# DB. 3x10 . Blocking at elbow. ER. 2# DB. 3x10. Blocking provided by therapist. N/A 10/23/21. Elbow extension. 3# DB. 3x10. Blocking provided by therapist. 1 Descriptor UEB x 5 minutes. Seated. B UEs . - Assessment Assessment of Improvement Report of functional incorporation of the upper extremity in day-to-day life. Introduced lat pull down machine and seated squat for UE use. Introduced hor abd/add seated without weight; do to difficulties with execution of this movement pattern also adapted garcia bag transfer activity. Increased tightness of anterior chest; reviewed door exercise and recommended completing on a daily basis. Overall, good session. Need for additional sessions to be scheduled; recommend assessing UE strength. Karolina would likely continue benefit from outpatient OT to address L UE weakness, motor planning, awareness of L UE in space, and functional abilities to support Karolina's success with active participation in meaningful activities in a variety of environments. Home Exercise Program Recommended mini wall push-ups and/or mini chair-dips. - Plan Therapy Recommendations Continue with Current Program, Advance per Rehabilitation Protocol
--- NOTE | 2021-10-27 11:51 | OT.OP.TRT ---
Visit Care Team Role Provider Type Xiomara Diego DO Attending Provider Physician Primary Care Provider Referring Provider Specialty: Family Practice Address: [address] [place] [address], [place], [address] Email: [email or web address] Occupational Therapy Treatment Note OT Outpatient Treatment Note - Adult Start: 03/26/21 15:29 Freq: Status: Active Protocol: Document 10/27/21 11:38 AMS (Rec: 10/27/21 11:50 AMS [id number]) OT Outpatient Adult Treatment Note Session Time Visit Start Time 10:30 Visit Stop Time 11:15 Total Visit Minutes 45 Visit Information Visit Number 05/08; 06/16 visits => 20th visit KX modifier Plan of Care Dates 09/10/21 - 12/03/21 Insurance Information Medicare Setting Treatment Setting Outpatient Care Visit Type Note Type Treatment Note General Information General Information Patient is a 65 year-old right hand dominant female referred to outpatient OT secondary to thalamic CVA resulting in left sided weakness. PMH: Significant for back pain; diabetes II; neuropathy; stroke/TIA; bilateral rotator cuff tears w/ PT as treatment. - Subjective Identification Type Name Identification Reconciled With Medical Record Observations No new concerns were reported. Patient/Caregiver Compliance with Home Good Exercise Program - Objective Objective Measurements Please refer to below for progress towards meeting established OT goals. Short Term Goals 1. 0-120 degrees active left shoulder flexion. 09/10/21 = 75 % met 2. 0-85 degrees active left shoulder abduction. 09/10/21= 75% met GOALS MET 0-100 degrees left active elbow flexion. *MET 05/22/21 0- 135 versus initial 0-90 Avg 15.0# of force w/ L dynamometer II strength testing. *MET 05/22/21; avg 20. 0# of force. 0-60 degrees left active sh flex. *MET 05/22/21; 0-80 versus initial 0-45 0-60 degrees left active sh abd. *MET 05/22/21; 0-75 versus initial 0-47 0-100 degrees active left shoulder flexion. *MET ; 0-110 versus initial 0-45 0-30 degrees active left shoulder ER. *MET 07/16/21; 0- 60 degrees versus initial 0-10 Residential Goals 1. Karolina will be modified independent with upper extremity home exercise program utilizing provided written and visual instructions from therapist. 2. Karolina will present with improved functional abilities of the left hand; this will be evidenced by Karolina obtaining a score of 25.0 or less on the QuickDASH UE Outcome Measure. - Treatment 2 Descriptor Object manipulation. Functional movement patterns. Garcia bag toss/garcia bag transfer activities w/ L UE. Use of singular bolster. Use of 2 bolsters. Exercises 6 Descriptor Sh ROM. Sh flex (sh height --> above head). Seated. Cane. 3 x 10. Wall walks above head L <-> R. Standing. 3 x 10. Sh press. Seated. Cane. 1 x 10 . 5 Descriptor Seated. Row machine. 20# resistance. 3 x 10 repetitions . Seated. Lat pulldown. 10# resistance. 3 x 10 repetitions . 4 Descriptor UE ROM. Upper trap stretch. Pec stretch. Manual/ROM by therapist L UE. Addressed pec tightness and distal bicep tightness at site of insertion. Chest stretch w/ sh ext bilateral. 3 Descriptor Seated. UE strengthening. Sh flex. 3# DB 2 x 10. 2# DB 1 x 10. Sh abd. 2# DB. 3 x 10. Sh ext. 3# DB. 2 x 10. 2# DB 1 x 10. w/ forearm supination. Pec press/hor abd/add. 3 x 10. 2 Descriptor Supine. Sh hor abd and ER. 2# DB. 3x10 . Blocking at elbow. ER. 2# DB. 3x10. Blocking provided by therapist. Elbow ext/skull crushers. 3# DB. 3x10. Blocking provided by therapist. Elbow ext w/ sh in 90 degrees abd. 2# DB. 3x10. Blocking provided by therapist. 1 Descriptor UEB x 5 minutes. Seated. B UEs . - Assessment Assessment of Improvement Report of functional incorporation of the upper extremity in day-to-day life. Improving active range of motion of upper extremity; recommend re-assessing shoulder range of motion at time of next treatment session . Difficulties sustaining left upper extremity above eye level without R UE support/or use of cane. This suggests continued need to work on strengthening of the left upper extremity. Recommend assessing shoulder strength at time of next treatment session. Decreased tightness of left anterior chest compared to previous treatment session; this suggests carry- over of door stretch of chest/ anterior left shoulder. Overall, good session. Karolina would likely continue benefit from outpatient OT to address L UE weakness, motor planning, awareness of L UE in space, and functional abilities to support Karolina's success with active participation in meaningful activities in a variety of environments. Home Exercise Program Wall walking hand exercise. - Plan Therapy Recommendations Continue with Current Program, Advance per Rehabilitation Protocol Additional Therapy Recommendations Complete POC/prog note at time of next treatment session.
--- NOTE | 2021-10-30 15:02 | OT.OPPN ---
Current Diagnoses Cerebral infarction, unspecified (10/30/21) Other lack of coordination (10/30/21) Other symptoms and signs involving the musculoskeletal system (10/30/21) Weakness (10/30/21) OT Progress Note OT Outpatient Treatment Note - Adult Start: 03/26/21 15:29 Freq: Status: Active Protocol: Document 10/30/21 14:40 AMS (Rec: 10/30/21 15:02 AMS [id number]) OT Outpatient Adult Treatment Note Session Time Visit Start Time 14:30 Visit Stop Time 15:15 Total Visit Minutes 45 Visit Information Visit Number 09/07; 07/17 visits => 20th visit KX modifier Plan of Care Dates 10/30/21 - 01/22/22 Insurance Information Medicare Setting Treatment Setting Outpatient Care Visit Type Note Type Progress Note General Information General Information Patient is a 65 year-old right hand dominant female referred to outpatient OT secondary to thalamic CVA resulting in left sided weakness. PMH: Significant for back pain; diabetes II; neuropathy; stroke/TIA; bilateral rotator cuff tears w/ PT as treatment. - Subjective Identification Type Name Identification Reconciled With Medical Record Observations I was able to put fresh linens on my bed for the first time. Cr had to help me fix it a little bit by shaking /smoothing out the bedding. I tried feeding myself the other day slices of apple with peanut butter. I wasn't able to do it per Karolina. No new concerns were reported. Patient/Caregiver Compliance with Home Good Exercise Program - Objective Objective Measurements Please refer to below for progress towards meeting established OT goals. Short Term Goals 1. Karolina will present with improved range of motion of the left upper extremity which will support her ability to engage in meaningful activities: 1a. 0-105 degrees active left shoulder abduction. 2. Karolina will present with improved strength of the left upper extremity which will support her ability to engage in meaningful activities: 2a. 4/5 MMT testing L sh flexion. 2b. 4/5 MMT testing L sh ER. 2c. 4+/5 MMT testing L sh extension. GOALS MET 0-100 degrees left active elbow flexion. *MET 05/22/21 0- 135 versus initial 0-90 Avg 15.0# of force w/ L dynamometer II strength testing. *MET 05/22/21; avg 20. 0# of force. 0-60 degrees left active sh flex. *MET 05/22/21; 0-80 vs initial 0-45 0-60 degrees left active sh abd. *MET 05/22/21; 0-75 vs initial 0-47 0-100 degrees active left shoulder flexion. *MET ; 0-110 vs initial 0-45 0-30 degrees active left shoulder ER. *MET 07/16/21; 0- 60 degrees vs initial 0-10 0-120 degrees active left shoulder flexion. *MET 10/30/21; 0-120 degrees vs initial 0-45 0-85 degrees active left shoulder abduction. *MET ; 0-85 degrees vs initial 0- 47 Skilled Nursing Goals 1. Karolina will be modified independent with upper extremity home exercise program utilizing provided written and visual instructions from therapist. = 50% met 2. Karolina will present with improved functional abilities of the left hand: 2a. Karolina will obtain a score of 25.0 or less on the QuickDASH UE Outcome Measure. 2b. Based on self-report, Karolina will be able to feed self finger foods with the left hand with increased time (e.g. , pretzels, apple slices). - Treatment 2 Descriptor Object manipulation. Functional movement patterns. Garcia bag toss/garcia bag transfer activities w/ L UE. Use of singular bolster. Use of 2 bolsters. Exercises 6 Descriptor Sh ROM. Sh flex (sh height --> above head). Seated. Cane. 3 x 10. Wall walks above head L <-> R. Standing. 3 x 10. Sh press. Seated. Cane. 1 x 10 . 5 Descriptor N/A Seated. Row machine. 20# resistance. 3 x 10 repetitions . Seated. Lat pulldown. 10# resistance. 3 x 10 repetitions . 4 Descriptor UE ROM. Upper trap stretch. Pec stretch. Manual/ROM by therapist L UE. Addressed pec tightness and distal bicep tightness at site of insertion. Chest stretch w/ sh ext bilateral. 3 Descriptor Seated. UE strengthening. Sh flex. 3# DB 2 x 10. 2# DB 1 x 10. Sh abd. 2# DB. 3 x 10. Sh ext. 3# DB. 2 x 10. 2# DB 1 x 10. w/ forearm supination. Pec press/hor abd/add. 3 x 10. 2 Descriptor N/A Supine. Sh hor abd and ER. 2# DB. 3x10 . Blocking at elbow. ER. 2# DB. 3x10. Blocking provided by therapist. Elbow ext/skull crushers. 3# DB. 3x10. Blocking provided by therapist. Elbow ext w/ sh in 90 degrees abd. 2# DB. 3x10. Blocking provided by therapist. 1 Descriptor UEB x 5 minutes. Seated. B UEs . - Assessment Assessment of Improvement Karolina has made progress over the last certification period in the areas of left upper extremity active range of motion, left upper extremity strength, and ability to incorporate the left hand/ upper extremity in day-to-day life. This is evidenced by Karolina meeting goals in these areas, as well as based on self-report. Karolina was able to make her bed/change linens for the first time yesterday w/ some support from for straightening/smoothing out of linen/bedding and managing duvet. She reports improving ability to carry things ( laundry) up and down the stairs with the left arm and folding clothing for trips. Despite progress, Karolina continues to present with decreased left upper extremity range of motion (particularly sh abd), left pec/anterior chest tightness, difficulties sustaining left upper extremity above eye level, and c/o decreased coordination with the left upper extremity. Thus, Karolina would likely continue benefit from outpatient OT to address L UE weakness, motor planning, awareness of L UE in space, and functional abilities to support Karolina's success with active participation in meaningful activities in a variety of environments. Home Exercise Program Recommended practicing arm swim strokes/cresent giles stretch in supine. - Plan Therapy Recommendations Continue with Current Program, Advance per Rehabilitation Protocol Comment 12 weeks Comment 1 to 2 times per week Therapeutic Contents Active Range of Motion, Adaptive Equipment Education, Client Education,Cognitive Skills Development,Functional Activities,Home Exercise Program,Joint Protection, Manual Therapy,Education, Neurodevelopment Treatment, Neuromuscular Re-Education, Self-Care,Stretching/ Flexibility Activities, Therapeutic Activities, Therapeutic Exercises, Modalities,Sensory Re- education Modalities As Needed,As Prescribed Types of Modalities E-Stim Additional Types of Modalities Hot pack/Cold pack Please Sign and Return: I have reviewed this Plan of Care and certify that the skilled therapy services above are required to meet the patient?s needs. Physician Signature Date Printed Name and Credentials Clinical Instructor Signature Printed Name and Credentials
--- NOTE | 2021-11-13 15:55 | OT.OP.TRT ---
Visit Care Team Role Provider Type Xiomara Diego DO Attending Provider Physician Primary Care Provider Referring Provider Specialty: Family Practice Address: [address] [place] [address], [place], [address] Email: [email or web address] Occupational Therapy Treatment Note OT Outpatient Treatment Note - Adult Start: 03/26/21 15:29 Freq: Status: Active Protocol: Document 11/13/21 15:51 AMS (Rec: 11/13/21 15:54 AMS [id number]) OT Outpatient Adult Treatment Note Session Time Visit Start Time 08:30 Visit Stop Time 09:15 Visit Information Visit Number 10/08; 08/16 visits => 20th visit KX modifier Plan of Care Dates 10/30/21 - 01/22/22 Insurance Information Medicare Setting Treatment Setting Outpatient Care Visit Type Note Type Treatment Note General Information General Information Patient is a 65 year-old right hand dominant female referred to outpatient OT secondary to thalamic CVA resulting in left sided weakness. PMH: Significant for back pain; diabetes II; neuropathy; stroke/TIA; bilateral rotator cuff tears w/ PT as treatment. - Subjective Identification Type Name Identification Reconciled With Medical Record Observations I was able to put fresh linens on my bed for the first time. Cr had to help me fix it a little bit by shaking /smoothing out the bedding. I tried feeding myself the other day slices of apple with peanut butter. I wasn't able to do it per Karolina. No new concerns were reported. Patient/Caregiver Compliance with Home Good Exercise Program - Objective Objective Measurements Please refer to below for progress towards meeting established OT goals. Short Term Goals 1. Karolina will present with improved range of motion of the left upper extremity which will support her ability to engage in meaningful activities: 1a. 0-105 degrees active left shoulder abduction. 2. Karolina will present with improved strength of the left upper extremity which will support her ability to engage in meaningful activities: 2a. 4/5 MMT testing L sh flexion. 2b. 4/5 MMT testing L sh ER. 2c. 4+/5 MMT testing L sh extension. GOALS MET 0-100 degrees left active elbow flexion. *MET 05/22/21 0- 135 versus initial 0-90 Avg 15.0# of force w/ L dynamometer II strength testing. *MET 05/22/21; avg 20. 0# of force. 0-60 degrees left active sh flex. *MET 05/22/21; 0-80 vs initial 0-45 0-60 degrees left active sh abd. *MET 05/22/21; 0-75 vs initial 0-47 0-100 degrees active left shoulder flexion. *MET ; 0-110 vs initial 0-45 0-30 degrees active left shoulder ER. *MET 07/16/21; 0- 60 degrees vs initial 0-10 0-120 degrees active left shoulder flexion. *MET 10/30/21; 0-120 degrees vs initial 0-45 0-85 degrees active left shoulder abduction. *MET ; 0-85 degrees vs initial 0- 47 Jail Goals 1. Karolina will be modified independent with upper extremity home exercise program utilizing provided written and visual instructions from therapist. = 50% met 2. Karolina will present with improved functional abilities of the left hand: 2a. Karolina will obtain a score of 25.0 or less on the QuickDASH UE Outcome Measure. 2b. Based on self-report, Karolina will be able to feed self finger foods with the left hand with increased time (e.g. , pretzels, apple slices). - Treatment 2 Descriptor Object manipulation. Functional movement patterns. Garcia bag toss/garcia bag transfer activities w/ L UE. Use of singular bolster. Use of 2 bolsters. Exercises 6 Descriptor Sh ROM. Sh flex (sh height --> above head). Seated. Cane. 3 x 10. Wall walks above head L <-> R. Standing. 3 x 10. Sh press. Seated. Cane. 1 x 10 . 5 Descriptor N/A Seated. Row machine. 20# resistance. 3 x 10 repetitions . Seated. Lat pulldown. 10# resistance. 3 x 10 repetitions . 4 Descriptor UE ROM. Upper trap stretch. Pec stretch. Manual/ROM by therapist L UE. Addressed pec tightness and distal bicep tightness at site of insertion. Chest stretch w/ sh ext bilateral. 3 Descriptor Seated. UE strengthening. Sh flex. 3# DB 2 x 10. 2# DB 1 x 10. Sh abd. 2# DB. 3 x 10. Sh ext. 3# DB. 2 x 10. 2# DB 1 x 10. w/ forearm supination. Sh flex cane --> overhead. 2# ankle weight. 2 x 10. 2 Descriptor N/A Supine. Sh hor abd and ER. 2# DB. 3x10 . Blocking at elbow. ER. 2# DB. 3x10. Blocking provided by therapist. Elbow ext/skull crushers. 3# DB. 3x10. Blocking provided by therapist. Elbow ext w/ sh in 90 degrees abd. 2# DB. 3x10. Blocking provided by therapist. 1 Descriptor UEB x 5 minutes. Seated. B UEs . - Assessment Assessment of Improvement Karolina returned from birthday vacation. Report of carry-over of recommended exercises. Karolina continues to present with decreased left upper extremity range of motion ( particularly sh abd), left pec /anterior chest tightness, difficulties sustaining left upper extremity above eye level, and c/o decreased coordination with the left upper extremity. Overall, good session. Karolina would likely continue benefit from outpatient OT to address L UE weakness, motor planning, awareness of L UE in space, and functional abilities to support Karolina's success with active participation in meaningful activities in a variety of environments. - Plan Therapy Recommendations Continue with Current Program, Advance per Rehabilitation Protocol
--- NOTE | 2021-11-17 15:50 | OT.OP.TRT ---
Visit Care Team Role Provider Type Xiomara Diego DO Attending Provider Physician Primary Care Provider Referring Provider Specialty: Family Practice Address: [address] [place] [address], [place], [address] Email: [email or web address] Occupational Therapy Treatment Note OT Outpatient Treatment Note - Adult Start: 03/26/21 15:29 Freq: Status: Active Protocol: Document 11/17/21 15:42 AMS (Rec: 11/17/21 15:50 AMS [id number]) OT Outpatient Adult Treatment Note Session Time Visit Start Time 10:30 Visit Stop Time 11:15 Total Visit Minutes 45 Visit Information Visit Number 11/05; visits => 20th visit KX modifier Plan of Care Dates 10/30/21 - 01/22/22 Insurance Information Medicare Setting Treatment Setting Outpatient Care Visit Type Note Type Treatment Note General Information General Information Patient is a 65 year-old right hand dominant female referred to outpatient OT secondary to thalamic CVA resulting in left sided weakness. PMH: Significant for back pain; diabetes II; neuropathy; stroke/TIA; bilateral rotator cuff tears w/ PT as treatment. - Subjective Identification Type Name Identification Reconciled With Medical Record Observations This shoulder is really bothering me per Karolina re: right shoulder. I think I might have slept wrong on the airplane on the way back on Tuesday. It is feeling a little better per Karolina. No new concerns were reported. Patient/Caregiver Compliance with Home Good Exercise Program - Objective Objective Measurements Please refer to below for progress towards meeting established OT goals. Short Term Goals 1. Karolina will present with improved range of motion of the left upper extremity which will support her ability to engage in meaningful activities: 1a. 0-105 degrees active left shoulder abduction. 2. Karolina will present with improved strength of the left upper extremity which will support her ability to engage in meaningful activities: 2a. 4/5 MMT testing L sh flexion. 2b. 4/5 MMT testing L sh ER. 2c. 4+/5 MMT testing L sh extension. GOALS MET 0-100 degrees left active elbow flexion. *MET 05/22/21 0- 135 versus initial 0-90 Avg 15.0# of force w/ L dynamometer II strength testing. *MET 05/22/21; avg 20. 0# of force. 0-60 degrees left active sh flex. *MET 05/22/21; 0-80 vs initial 0-45 0-60 degrees left active sh abd. *MET 05/22/21; 0-75 vs initial 0-47 0-100 degrees active left shoulder flexion. *MET ; 0-110 vs initial 0-45 0-30 degrees active left shoulder ER. *MET 07/16/21; 0- 60 degrees vs initial 0-10 0-120 degrees active left shoulder flexion. *MET 10/30/21; 0-120 degrees vs initial 0-45 0-85 degrees active left shoulder abduction. *MET ; 0-85 degrees vs initial 0- 47 [employer] Goals 1. Karolina will be modified independent with upper extremity home exercise program utilizing provided written and visual instructions from therapist. = 50% met 2. Karolina will present with improved functional abilities of the left hand: 2a. Karolina will obtain a score of 25.0 or less on the QuickDASH UE Outcome Measure. 2b. Based on self-report, Karolina will be able to feed self finger foods with the left hand with increased time (e.g. , pretzels, apple slices). - Treatment 2 Descriptor Object manipulation. Functional movement patterns. Garcia bag toss/garcia bag transfer activities w/ L UE. Use of singular bolster. Use of 2 bolsters. Exercises 6 Descriptor Sh ROM. Sh flex (sh height --> above head). Seated. Cane. 3 x 10. Wall walks above head L <-> R. Standing. 3 x 10. Sh press. Seated. Cane. 1 x 10 . 5 Descriptor N/A Seated. Row machine. 20# resistance. 3 x 10 repetitions . Seated. Lat pulldown. 10# resistance. 3 x 10 repetitions . 4 Descriptor UE ROM. Upper trap stretch. Pec stretch. Manual/ROM by therapist L UE. Addressed pec tightness and distal bicep tightness at site of insertion. Chest stretch w/ sh ext bilateral. 3 Descriptor Seated. UE strengthening. Sh flex. 3# DB 2 x 10. 2# DB 1 x 10. Sh abd. 2# DB. 3 x 10. Sh ext. 3# DB. 2 x 10. 2# DB 1 x 10. w/ forearm supination. Sh flex cane --> overhead. 2# ankle weight. 2 x 10. 2 Descriptor Supine. Sh hor abd and ER. 2# DB. 3x10 . Blocking at elbow. ER. 2# DB. 3x10. Blocking provided by therapist. Elbow ext/skull crushers. 3# DB. 3x10. Blocking provided by therapist. Elbow ext w/ sh in 90 degrees abd. 2# DB. 3x10. Blocking provided by therapist. 1 Descriptor UEB x 3 minutes. Seated. L UE only. - Assessment Assessment of Improvement Karolina presents with continued c /o right shoulder pain/ discomfort; discussed seeing PCP if discomfort does not subside. Discomfort may have been d/t 'sleeping wrong' on plane upon return from vacation. Improved fluidity w/ frontal plane snow griffin at wall w/ left upper extremity; able to complete additional repetitions as well prior to fatigue. Initiated balloon volleyball w/ instruction to hit balloon back to therapist at highest height able to reach; completed 3 sets of 10 repetitions. Fatigue onset at approx 8 rep out of set. Report of carry-over of recommended exercises. Karolina continues to present with decreased left upper extremity range of motion, left pec/ anterior chest tightness, difficulties sustaining left upper extremity above eye level, and c/o decreased coordination with the left upper extremity. Overall, good session. Karolina would likely continue benefit from outpatient OT to address L UE weakness, motor planning, awareness of L UE in space, and functional abilities to support Karolina's success with active participation in meaningful activities in a variety of environments. - Plan Therapy Recommendations Continue with Current Program, Advance per Rehabilitation Protocol
--- NOTE | 2021-11-19 14:18 | OT.OP.TRT ---
Visit Care Team Role Provider Type Xiomara Diego DO Attending Provider Physician Primary Care Provider Referring Provider Specialty: Family Practice Address: [address] [place] [address], [place], [address] Email: [email or web address] Occupational Therapy Treatment Note OT Outpatient Treatment Note - Adult Start: 03/26/21 15:29 Freq: Status: Active Protocol: Document 11/19/21 14:12 AMS (Rec: 11/19/21 14:17 AMS [id number]) OT Outpatient Adult Treatment Note Session Time Visit Start Time 09:45 Visit Stop Time 10:35 Total Visit Minutes 35 Visit Information Visit Number 12/06; visits => 20th visit KX modifier Plan of Care Dates 10/30/21 - 01/22/22 Insurance Information Medicare Setting Treatment Setting Outpatient Care Visit Type Note Type Treatment Note General Information General Information Patient is a 65 year-old right hand dominant female referred to outpatient OT secondary to thalamic CVA resulting in left sided weakness. PMH: Significant for back pain; diabetes II; neuropathy; stroke/TIA; bilateral rotator cuff tears w/ PT as treatment. - Subjective Identification Type Name Identification Reconciled With Medical Record Observations No new concerns were reported. Patient/Caregiver Compliance with Home Good Exercise Program - Objective Objective Measurements Please refer to below for progress towards meeting established OT goals. Short Term Goals 1. Karolina will present with improved range of motion of the left upper extremity which will support her ability to engage in meaningful activities: 1a. 0-105 degrees active left shoulder abduction. 2. Karolina will present with improved strength of the left upper extremity which will support her ability to engage in meaningful activities: 2a. 4/5 MMT testing L sh flexion. 2b. 4/5 MMT testing L sh ER. 2c. 4+/5 MMT testing L sh extension. GOALS MET 0-100 degrees left active elbow flexion. *MET 05/22/21 0- 135 versus initial 0-90 Avg 15.0# of force w/ L dynamometer II strength testing. *MET 05/22/21; avg 20. 0# of force. 0-60 degrees left active sh flex. *MET 05/22/21; 0-80 vs initial 0-45 0-60 degrees left active sh abd. *MET 05/22/21; 0-75 vs initial 0-47 0-100 degrees active left shoulder flexion. *MET ; 0-110 vs initial 0-45 0-30 degrees active left shoulder ER. *MET 07/16/21; 0- 60 degrees vs initial 0-10 0-120 degrees active left shoulder flexion. *MET 10/30/21; 0-120 degrees vs initial 0-45 0-85 degrees active left shoulder abduction. *MET ; 0-85 degrees vs initial 0- 47 Nursing Home Goals 1. Karolina will be modified independent with upper extremity home exercise program utilizing provided written and visual instructions from therapist. = 50% met 2. Karolina will present with improved functional abilities of the left hand: 2a. Karolina will obtain a score of 25.0 or less on the QuickDASH UE Outcome Measure. 2b. Based on self-report, Karolina will be able to feed self finger foods with the left hand with increased time (e.g. , pretzels, apple slices). - Treatment 2 Descriptor Object manipulation. Functional movement patterns. Garcia bag toss/garcia bag transfer activities w/ L UE. Use of singular bolster. Use of 2 bolsters. Exercises 6 Descriptor Sh ROM. Standing. Wall walks above head L <-> R. 3 x 10. Snow griffin at wall. 1 x 10. Supine. Large arm circles. 1 x 10 in both directions. 5 Descriptor N/A Seated. Row machine. 20# resistance. 3 x 10 repetitions . Seated. Lat pulldown. 10# resistance. 3 x 10 repetitions . 4 Descriptor UE ROM. Upper trap stretch. Pec stretch. Manual/ROM by therapist L UE. Addressed pec tightness and distal bicep tightness at site of insertion. Chest stretch w/ sh ext bilateral. 3 Descriptor Seated. UE strengthening. Sh flex. 3# DB 2 x 10. 2# DB 1 x 10. Sh abd. 2# DB. 3 x 10. Sh ext. 3# DB. 2 x 10. 2# DB 1 x 10. w/ forearm supination. Sh flex cane --> overhead. 2# ankle weight. 2 x 10. 2 Descriptor Supine. Sh hor abd and ER. 2# DB. 3x10 . Blocking at elbow. ER. 2# DB. 3x10. Blocking provided by therapist. Elbow ext/skull crushers. 3# DB. 3x10. Blocking provided by therapist. Elbow ext w/ sh in 90 degrees abd. 2# DB. 3x10. Blocking provided by therapist. 1 Descriptor UEB x 5 minutes. Seated. L UE only x 2 minutes. - Assessment Assessment of Improvement Karolina presents with continued c /o right shoulder pain/ discomfort; discussed seeing PCP if discomfort does not subside. Karolina may also look to schedule medical massage. Introduced large arm circles supine; able to complete in both directions w/ encouragement to extend elbow fully w/ sh flex/sh abd. Karolina continues to present with decreased left upper extremity range of motion, left pec/ anterior chest tightness, difficulties sustaining left upper extremity above eye level, and c/o decreased coordination with the left upper extremity. Overall, good session. Karolina would likely continue benefit from outpatient OT to address L UE weakness, motor planning, awareness of L UE in space, and functional abilities to support Karolina's success with active participation in meaningful activities in a variety of environments. - Plan Therapy Recommendations Continue with Current Program, Advance per Rehabilitation Protocol
--- NOTE | 2021-11-24 11:52 | OT.OP.TRT ---
Visit Care Team Role Provider Type Xiomara Diego DO Attending Provider Physician Primary Care Provider Referring Provider Specialty: Family Practice Address: [address] [place] [address], [place], [address] Email: [email or web address] Occupational Therapy Treatment Note OT Outpatient Treatment Note - Adult Start: 03/26/21 15:29 Freq: Status: Active Protocol: Document 11/24/21 11:41 AMS (Rec: 11/24/21 11:52 AMS [id number]) OT Outpatient Adult Treatment Note Session Time Visit Start Time 09:30 Visit Stop Time 10:15 Total Visit Minutes 45 Visit Information Visit Number 01/05; visits => 20th visit KX modifier Plan of Care Dates 10/30/21 - 01/22/22 Insurance Information Medicare Setting Treatment Setting Outpatient Care Visit Type Note Type Treatment Note General Information General Information Patient is a 65 year-old right hand dominant female referred to outpatient OT secondary to thalamic CVA resulting in left sided weakness. PMH: Significant for back pain; diabetes II; neuropathy; stroke/TIA; bilateral rotator cuff tears w/ PT as treatment. - Subjective Identification Type Name Identification Reconciled With Medical Record Observations No new concerns were reported. Patient/Caregiver Compliance with Home Good Exercise Program - Objective Objective Measurements Please refer to below for progress towards meeting established OT goals. Short Term Goals 1. Karolina will present with improved range of motion of the left upper extremity which will support her ability to engage in meaningful activities: 1a. 0-105 degrees active left shoulder abduction. 2. Karolina will present with improved strength of the left upper extremity which will support her ability to engage in meaningful activities: 2a. 4/5 MMT testing L sh flexion. 2b. 4/5 MMT testing L sh ER. 2c. 4+/5 MMT testing L sh extension. GOALS MET 0-100 degrees left active elbow flexion. *MET 05/22/21 0- 135 versus initial 0-90 Avg 15.0# of force w/ L dynamometer II strength testing. *MET 05/22/21; avg 20. 0# of force. 0-60 degrees left active sh flex. *MET 05/22/21; 0-80 vs initial 0-45 0-60 degrees left active sh abd. *MET 05/22/21; 0-75 vs initial 0-47 0-100 degrees active left shoulder flexion. *MET ; 0-110 vs initial 0-45 0-30 degrees active left shoulder ER. *MET 07/16/21; 0- 60 degrees vs initial 0-10 0-120 degrees active left shoulder flexion. *MET 10/30/21; 0-120 degrees vs initial 0-45 0-85 degrees active left shoulder abduction. *MET ; 0-85 degrees vs initial 0- 47 [employer] Goals 1. Karolina will be modified independent with upper extremity home exercise program utilizing provided written and visual instructions from therapist. = 50% met 2. Karolina will present with improved functional abilities of the left hand: 2a. Karolina will obtain a score of 25.0 or less on the QuickDASH UE Outcome Measure. 2b. Based on self-report, Karolina will be able to feed self finger foods with the left hand with increased time (e.g. , pretzels, apple slices). - Treatment 2 Descriptor Object manipulation. Functional movement patterns. Garcia bag toss/garcia bag transfer activities w/ L UE. Use of singular bolster. Use of 2 bolsters. Exercises 7 Descriptor Prone L UE Strengthening. 'T'. 1 x 10. 'Y'. 1 x 10. 'I'. 1 x 10. Snow angels. 1 x 10. CGA. 6 Descriptor Sh ROM. Standing. Wall walks x 5 steps to the right <--> left w/ hands above head. 1 x 7 cycles . Snow griffin at wall. 1 x 10. Supine. Large arm circles. 1 x 10 in both directions. 5 Descriptor N/A Seated. Row machine. 20# resistance. 3 x 10 repetitions . Seated. Lat pulldown. 10# resistance. 3 x 10 repetitions . 4 Descriptor UE ROM. Upper trap stretch. Pec stretch. Manual/ROM by therapist L UE. Addressed pec tightness and distal bicep tightness at site of insertion. Chest stretch w/ sh ext bilateral. 3 Descriptor Seated. UE strengthening. Sh flex. 3# DB 2 x 10. 2# DB 1 x 10. Sh abd. 2# DB. 3 x 10. Sh ext. 3# DB. 2 x 10. 2# DB 1 x 10. w/ forearm supination. Sh flex cane --> overhead. 2# ankle weight. 2 x 10. 2 Descriptor Supine. Sh hor abd and ER. 2# DB. 3x10 . Blocking at elbow. ER. 2# DB. 3x10. Blocking provided by therapist. Elbow ext/skull crushers. 3# DB. 3x10. Blocking provided by therapist. Elbow ext w/ sh in 90 degrees abd. 2# DB. 3x10. Blocking provided by therapist. 1 Descriptor UEB x 5 minutes. Seated. L UE only x 2 minutes. - Assessment Assessment of Improvement Karolina presents with continued c /o right shoulder pain/ discomfort; reported receipt of medical massage. Despite massage, residual symptoms of discomfort of the right upper extremity present but reportedly 'getting better'. Introduced prone UE exercises and upgraded wall exercises with focus on maintaing L UE above shoulder height/ sustained hold w/ and w/out movement of lower extremities. Unable to execute snow angels at wall w/ attempt on touching wall with L UE throughout movement. L UE weakness. Overall, good session. Karolina would likely continue benefit from outpatient OT to address L UE weakness, motor planning, awareness of L UE in space, and functional abilities to support Karolina's success with active participation in meaningful activities in a variety of environments. Home Exercise Program Recommended working on sustaining L UE above shoulder height in space (wall exercises). - Plan Therapy Recommendations Continue with Current Program, Advance per Rehabilitation Protocol
--- NOTE | 2021-11-26 12:00 | OT.OP.TRT ---
Visit Care Team Role Provider Type Xiomara Diego DO Attending Provider Physician Primary Care Provider Referring Provider Specialty: Family Practice Address: [address] [place] [address], [place], [address] Email: [email or web address] Occupational Therapy Treatment Note OT Outpatient Treatment Note - Adult Start: 03/26/21 15:29 Freq: Status: Active Protocol: Document 11/26/21 11:53 AMS (Rec: 11/26/21 12:00 AMS [id number]) OT Outpatient Adult Treatment Note Session Time Visit Start Time 09:30 Visit Stop Time 10:15 Total Visit Minutes 45 Visit Information Visit Number 02/05; visits => 20th visit KX modifier Plan of Care Dates 10/30/21 - 01/22/22 Insurance Information Medicare Setting Treatment Setting Outpatient Care Visit Type Note Type Treatment Note General Information General Information Patient is a 65 year-old right hand dominant female referred to outpatient OT secondary to thalamic CVA resulting in left sided weakness. PMH: Significant for back pain; diabetes II; neuropathy; stroke/TIA; bilateral rotator cuff tears w/ PT as treatment. - Subjective Identification Type Name Identification Reconciled With Medical Record Observations No new concerns were reported. Patient/Caregiver Compliance with Home Good Exercise Program - Objective Objective Measurements Please refer to below for progress towards meeting established OT goals. Short Term Goals 1. Karolina will present with improved range of motion of the left upper extremity which will support her ability to engage in meaningful activities: 1a. 0-105 degrees active left shoulder abduction. 2. Karolina will present with improved strength of the left upper extremity which will support her ability to engage in meaningful activities: 2a. 4/5 MMT testing L sh flexion. 2b. 4/5 MMT testing L sh ER. 2c. 4+/5 MMT testing L sh extension. GOALS MET 0-100 degrees left active elbow flexion. *MET 05/22/21 0- 135 versus initial 0-90 Avg 15.0# of force w/ L dynamometer II strength testing. *MET 05/22/21; avg 20. 0# of force. 0-60 degrees left active sh flex. *MET 05/22/21; 0-80 vs initial 0-45 0-60 degrees left active sh abd. *MET 05/22/21; 0-75 vs initial 0-47 0-100 degrees active left shoulder flexion. *MET ; 0-110 vs initial 0-45 0-30 degrees active left shoulder ER. *MET 07/16/21; 0- 60 degrees vs initial 0-10 0-120 degrees active left shoulder flexion. *MET 10/30/21; 0-120 degrees vs initial 0-45 0-85 degrees active left shoulder abduction. *MET ; 0-85 degrees vs initial 0- 47 [facility] Goals 1. Karolina will be modified independent with upper extremity home exercise program utilizing provided written and visual instructions from therapist. = 50% met 2. Karolina will present with improved functional abilities of the left hand: 2a. Karolina will obtain a score of 25.0 or less on the QuickDASH UE Outcome Measure. 2b. Based on self-report, Karolina will be able to feed self finger foods with the left hand with increased time (e.g. , pretzels, apple slices). - Treatment 2 Descriptor Object manipulation. Functional movement patterns. Garcia bag toss/garcia bag transfer activities w/ L UE. Use of singular bolster. Use of 2 bolsters. Exercises 7 Descriptor Prone L UE Strengthening. 'T'. 2 x 10. 'Y'. 1 x 10. 'I'. 1 x 10. 6 Descriptor Sh ROM. Standing. Wall walks x 5 steps to the right <--> left w/ hands above head. 1 x 7 cycles . Snow griffin at wall. 1 x 10. Supine. Large arm circles. 1 x 10 in both directions. ER w/ hands positioned behind head while supine. 3 x 10. 5 Descriptor N/A Seated. Row machine. 20# resistance. 3 x 10 repetitions . Seated. Lat pulldown. 10# resistance. 3 x 10 repetitions . 4 Descriptor UE ROM. Upper trap stretch. Pec stretch. Manual/ROM by therapist L UE. Addressed pec tightness and distal bicep tightness at site of insertion. Chest stretch w/ sh ext bilateral. 3 Descriptor Seated. UE strengthening. Sh flex. 3# DB 2 x 10. 2# DB 1 x 10. Sh abd. 2# DB. 3 x 10. Sh ext. 3# DB. 2 x 10. 2# DB 1 x 10. w/ forearm supination. Sh flex cane --> overhead. 2# ankle weight. 3 x 10. 2 Descriptor Supine. Sh hor abd and ER. 2# DB. 3x10 . Blocking at elbow. ER. 2# DB. 3x10. Blocking provided by therapist. Elbow ext/skull crushers. 3# DB. 3x10. Blocking provided by therapist. Elbow ext w/ sh in 90 degrees abd. 2# DB. 3x10. Blocking provided by therapist. 1 Descriptor UEB x 5 minutes. Seated. - Assessment Assessment of Improvement Karolina reported that she will be seeing her PCP today; it is her '6 month' check-up after the stroke. She intends on speaking to her doctor about her R shoulder/which may be referral pain from neck region . Introduced ER w/ hands positioned behind head while supine; able to touch right elbow to mat; unable to do so w/ the left elbow (required assist from therapist). Difficulty w/ touching ipsilateral shoulder w/ left hand w/ active elbow flex and forearm supination; recommend revisiting functional movement patterns given reported difficulties self feeding w/ left hand finger foods (able to do so, but ends up returning to use of the right hand). Increased success w/ execution of 't' while prone on mat; phys assist to facilitate 'y' and 'i'. Overall, good session. Karolina would likely continue benefit from outpatient OT to address L UE weakness, motor planning, awareness of L UE in space, and functional abilities to support Karolina's success with active participation in meaningful activities in a variety of environments. Home Exercise Program Recommended positioning hands behind head and completing ER while supine. - Plan Therapy Recommendations Continue with Current Program, Advance per Rehabilitation Protocol
--- NOTE | 2021-12-08 15:02 | OT.OP.TRT ---
Visit Care Team Role Provider Type Xiomara Diego DO Attending Provider Physician Primary Care Provider Referring Provider Specialty: Family Practice Address: [address] [place] [address], [id number] Email: [email or web address] Occupational Therapy Treatment Note OT Outpatient Treatment Note - Adult Start: 03/26/21 15:29 Freq: Status: Active Protocol: Document 12/08/21 14:54 AMS (Rec: 12/08/21 15:02 AMS [id number]) OT Outpatient Adult Treatment Note Session Time Visit Start Time 09:30 Visit Stop Time 10:15 Total Visit Minutes 45 Visit Information Visit Number 03/07; visits => 20th visit KX modifier Plan of Care Dates 10/30/21 - 01/22/22 Insurance Information Medicare Setting Treatment Setting Outpatient Care Visit Type Note Type Treatment Note General Information General Information Patient is a 65 year-old right hand dominant female referred to outpatient OT secondary to thalamic CVA resulting in left sided weakness. PMH: Significant for back pain; diabetes II; neuropathy; stroke/TIA; bilateral rotator cuff tears w/ PT as treatment. - Subjective Identification Type Name Identification Reconciled With Medical Record Observations My right arm and hand are starting to go numb per Karolina. Patient/Caregiver Compliance with Home Good Exercise Program - Objective Objective Measurements Please refer to below for progress towards meeting established OT goals. Short Term Goals 1. Karolina will present with improved range of motion of the left upper extremity which will support her ability to engage in meaningful activities: 1a. 0-105 degrees active left shoulder abduction. 2. Karolina will present with improved strength of the left upper extremity which will support her ability to engage in meaningful activities: 2a. 4/5 MMT testing L sh flexion. 2b. 4/5 MMT testing L sh ER. 2c. 4+/5 MMT testing L sh extension. GOALS MET 0-100 degrees left active elbow flexion. *MET 05/22/21 0- 135 versus initial 0-90 Avg 15.0# of force w/ L dynamometer II strength testing. *MET 05/22/21; avg 20. 0# of force. 0-60 degrees left active sh flex. *MET 05/22/21; 0-80 vs initial 0-45 0-60 degrees left active sh abd. *MET 05/22/21; 0-75 vs initial 0-47 0-100 degrees active left shoulder flexion. *MET ; 0-110 vs initial 0-45 0-30 degrees active left shoulder ER. *MET 07/16/21; 0- 60 degrees vs initial 0-10 0-120 degrees active left shoulder flexion. *MET 10/30/21; 0-120 degrees vs initial 0-45 0-85 degrees active left shoulder abduction. *MET ; 0-85 degrees vs initial 0- 47 Circus Agent Goals 1. Karolina will be modified independent with upper extremity home exercise program utilizing provided written and visual instructions from therapist. = 50% met 2. Karolina will present with improved functional abilities of the left hand: 2a. Karolina will obtain a score of 25.0 or less on the QuickDASH UE Outcome Measure. 2b. Based on self-report, Karolina will be able to feed self finger foods with the left hand with increased time (e.g. , pretzels, apple slices). - Treatment 2 Descriptor Object manipulation. Functional movement patterns. Garcia bag toss/garcia bag transfer activities w/ L UE. Use of singular bolster. Use of 2 bolsters. Exercises 9 Descriptor UE motor planning. Sh abd. Small and large circles both directions. 1 x 10 each. Sh abd. Small and large figure 8 both directions. 1 x 10 each. 7 Descriptor Prone L UE Strengthening. 'T'. 2 x 10. 'Y'. 1 x 10. 'I'. 1 x 10. 6 Descriptor Sh ROM. Standing. Wall walks x 5 steps to the right <--> left w/ hands above head. 1 x 7 cycles . Snow griffin at wall. 1 x 10. Supine. Large arm circles. 1 x 10 in both directions. ER w/ hands positioned behind head while supine. 3 x 10. 5 Descriptor N/A Seated. Row machine. 20# resistance. 3 x 10 repetitions . Seated. Lat pulldown. 10# resistance. 3 x 10 repetitions . 4 Descriptor UE ROM. Upper trap stretch. Pec stretch. Manual/ROM by therapist L UE. Addressed pec tightness and distal bicep tightness at site of insertion. Chest stretch w/ sh ext bilateral. 3 Descriptor Seated. UE strengthening. Sh flex. 3# DB 2 x 10. 2# DB 1 x 10. Sh abd. 2# DB. 3 x 10. Sh ext. 3# DB. 2 x 10. 2# DB 1 x 10. w/ forearm supination. Sh flex cane --> overhead. 2# ankle weight. 3 x 10. 2 Descriptor Supine. Sh hor abd and ER. 2# DB. 3x10 . Blocking at elbow. ER. 2# DB. 3x10. Blocking provided by therapist. Elbow ext/skull crushers. 3# DB. 3x10. Blocking provided by therapist. Elbow ext w/ sh in 90 degrees abd. 2# DB. 3x10. Blocking provided by therapist. Wrist ext. 3# DB. 3 x 10. Blocking provided by therapist . Forearm supination. 3# DB. 3 x 10. 1 Descriptor UEB x 5 minutes. Seated. - Assessment Assessment of Improvement Increased pain/discomfort w/ c /o numbness of the R UE; has PT referral to address R UE. Modified exercises based on discomfort; did not complete prone work and/or above shoulder work w/ cane. Introduced motor coordination exercises w/ sh in abduction. Recommend repeating. Tightness into forearm pronation of L distal UE; passive forearm supination w/ wrist extension provided by therapist w/ elbow in 90 degrees flexion and w/ elbow extended. Increased success w/ touching top of left shoulder w/ hand w/ elbow flex. Recommend isolating functional movement pattern w/ elbow at side versus w/ sh flex. Overall, good session. Karolina would likely continue benefit from outpatient OT to address L UE weakness, motor planning, awareness of L UE in space, and functional abilities to support Karolina's success with active participation in meaningful activities in a variety of environments. - Plan Therapy Recommendations Continue with Current Program, Advance per Rehabilitation Protocol
--- NOTE | 2021-12-10 15:30 | OT.OP.TRT ---
Visit Care Team Role Provider Type Xiomara Diego DO Attending Provider Physician Primary Care Provider Referring Provider Specialty: Family Practice Address: [address] [place] [address], [place], [address] Email: [email or web address] Occupational Therapy Treatment Note OT Outpatient Treatment Note - Adult Start: 03/26/21 15:29 Freq: Status: Active Protocol: Document 12/10/21 15:30 AMS (Rec: 12/11/21 08:18 AMS [id number]) OT Outpatient Adult Treatment Note Session Time Visit Start Time 09:30 Visit Stop Time 10:15 Total Visit Minutes 45 Visit Information Visit Number 04/07; visits => 20th visit KX modifier Plan of Care Dates 10/30/21 - 01/22/22 Insurance Information Medicare Setting Treatment Setting Outpatient Care Visit Type Note Type Treatment Note General Information General Information Patient is a 66 year-old right hand dominant female referred to outpatient OT secondary to thalamic CVA resulting in left sided weakness. PMH: Significant for back pain; diabetes II; neuropathy; stroke/TIA; bilateral rotator cuff tears w/ PT as treatment. - Subjective Identification Type Name Identification Reconciled With Medical Record Observations I saw a chiropractor. 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 He also said that at C6 and C7 I had less mobility. I am feeling slightly better. I see him tomorrow too per Karolina. Patient/Caregiver Compliance with Home Good Exercise Program - Objective Objective Measurements Please refer to below for progress towards meeting established OT goals. Short Term Goals 1. Karolina will present with improved range of motion of the left upper extremity which will support her ability to engage in meaningful activities: 1a. 0-105 degrees active left shoulder abduction. 2. Karolina will present with improved strength of the left upper extremity which will support her ability to engage in meaningful activities: 2a. 4/5 MMT testing L sh flexion. 2b. 4/5 MMT testing L sh ER. 2c. 4+/5 MMT testing L sh extension. GOALS MET 0-100 degrees left active elbow flexion. *MET 05/22/21 0- 135 versus initial 0-90 Avg 15.0# of force w/ L dynamometer II strength testing. *MET 05/22/21; avg 20. 0# of force. 0-60 degrees left active sh flex. *MET 05/22/21; 0-80 vs initial 0-45 0-60 degrees left active sh abd. *MET 05/22/21; 0-75 vs initial 0-47 0-100 degrees active left shoulder flexion. *MET ; 0-110 vs initial 0-45 0-30 degrees active left shoulder ER. *MET 07/16/21; 0- 60 degrees vs initial 0-10 0-120 degrees active left shoulder flexion. *MET 10/30/21; 0-120 degrees vs initial 0-45 0-85 degrees active left shoulder abduction. *MET ; 0-85 degrees vs initial 0- 47 Auto Air Conditioning Apprentice Goals 1. Karolina will be modified independent with upper extremity home exercise program utilizing provided written and visual instructions from therapist. = 50% met 2. Karolina will present with improved functional abilities of the left hand: 2a. Karolina will obtain a score of 25.0 or less on the QuickDASH UE Outcome Measure. 2b. Based on self-report, Karolina will be able to feed self finger foods with the left hand with increased time (e.g. , pretzels, apple slices). - Exercises 9 Descriptor UE motor planning. Sh abd. Small and large circles both directions. 1 x 10 each. Sh abd. Small and large figure 8 both directions. 1 x 10 each. 6 Descriptor Sh ROM. Standing. Wall walks x 5 steps to the right <--> left w/ hands above head. 1 x 7 cycles . Snow griffin at wall. 1 x 10. Supine. Large arm circles. 1 x 10 in both directions. ER w/ hands positioned behind head while supine. 3 x 10. 5 Descriptor N/A Seated. Row machine. 20# resistance. 3 x 10 repetitions . Seated. Lat pulldown. 10# resistance. 3 x 10 repetitions . 4 Descriptor UE ROM. Upper trap stretch. Pec stretch. Manual/ROM by therapist L UE. Addressed pec tightness and distal bicep tightness at site of insertion. Chest stretch w/ sh ext bilateral. 3 Descriptor Seated. UE strengthening. Sh flex. 3# DB 2 x 10. 2# DB 1 x 10. Sh abd. 2# DB. 3 x 10. Sh ext. 3# DB. 2 x 10. 2# DB 1 x 10. w/ forearm supination. N/A 12/10. Sh flex cane --> overhead. 2# ankle weight. 3 x 10. 2 Descriptor Supine. Sh hor abd and ER. 2# DB. 3x10 . Blocking at elbow. ER. 2# DB. 3x10. Blocking provided by therapist. Elbow ext/skull crushers. 3# DB. 3x10. Blocking provided by therapist. Elbow ext w/ sh in 90 degrees abd. 2# DB. 3x10. Blocking provided by therapist. Wrist ext. 3# DB. 3 x 10. Blocking provided by therapist . Forearm supination. 3# DB. 3 x 10. 1 Descriptor UEB x 5 minutes. Seated. - Assessment Assessment of Improvement Modified treatment session to complete all left upper extremity exercises in supine; also did not have Karolina use UEB. Increased tolerance compared to previous treatment session. Recommended completing left upper extremity exercises in supine at home; also recommended upper trap stretch bilaterally and levator scapulae stretch. Tendency to flex/extend at elbow when completing more difficult left upper extremity coordination exercises; unaware of use of this compensatory pattern. Assisted w/ extending elbow while supine to support motor planning occurring at . Overall, good session. Karolina would likely continue benefit from outpatient OT to address L UE weakness, motor planning, awareness of L UE in space, and functional abilities to support Karolina's success with active participation in meaningful activities in a variety of environments. - Plan Therapy Recommendations Continue with Current Program, Advance per Rehabilitation Protocol
--- NOTE | 2021-12-15 13:37 | OT.OP.TRT ---
Visit Care Team Role Provider Type Xiomara Diego DO Attending Provider Physician Primary Care Provider Referring Provider Specialty: Family Practice Address: [address] [place] [address], [id number] Email: [email or web address] Occupational Therapy Treatment Note OT Outpatient Treatment Note - Adult Start: 03/26/21 15:29 Freq: Status: Active Protocol: Document 12/15/21 13:29 AMS (Rec: 12/15/21 13:36 AMS [id number]) OT Outpatient Adult Treatment Note Session Time Visit Start Time 09:45 Visit Stop Time 10:15 Total Visit Minutes 30 Visit Information Visit Number 05/08; visits => 20th visit KX modifier Plan of Care Dates 10/30/21 - 01/22/22 Insurance Information Medicare Setting Treatment Setting Outpatient Care Visit Type Note Type Treatment Note General Information General Information Patient is a 66 year-old right hand dominant female referred to outpatient OT secondary to thalamic CVA resulting in left sided weakness. PMH: Significant for back pain; diabetes II; neuropathy; stroke/TIA; bilateral rotator cuff tears w/ PT as treatment. - Subjective Identification Type Name Identification Reconciled With Medical Record Observations I am going to have an MRI per Karolina. Patient/Caregiver Compliance with Home Good Exercise Program - Objective Objective Measurements Please refer to below for progress towards meeting established OT goals. Short Term Goals 1. Karolina will present with improved range of motion of the left upper extremity which will support her ability to engage in meaningful activities: 1a. 0-105 degrees active left shoulder abduction. 2. Karolina will present with improved strength of the left upper extremity which will support her ability to engage in meaningful activities: 2a. 4/5 MMT testing L sh flexion. 2b. 4/5 MMT testing L sh ER. 2c. 4+/5 MMT testing L sh extension. GOALS MET 0-100 degrees left active elbow flexion. *MET 05/22/21 0- 135 versus initial 0-90 Avg 15.0# of force w/ L dynamometer II strength testing. *MET 05/22/21; avg 20. 0# of force. 0-60 degrees left active sh flex. *MET 05/22/21; 0-80 vs initial 0-45 0-60 degrees left active sh abd. *MET 05/22/21; 0-75 vs initial 0-47 0-100 degrees active left shoulder flexion. *MET ; 0-110 vs initial 0-45 0-30 degrees active left shoulder ER. *MET 07/16/21; 0- 60 degrees vs initial 0-10 0-120 degrees active left shoulder flexion. *MET 10/30/21; 0-120 degrees vs initial 0-45 0-85 degrees active left shoulder abduction. *MET ; 0-85 degrees vs initial 0- 47 Qm Consultant Goals 1. Karolina will be modified independent with upper extremity home exercise program utilizing provided written and visual instructions from therapist. = 50% met 2. Karolina will present with improved functional abilities of the left hand: 2a. Karolina will obtain a score of 25.0 or less on the QuickDASH UE Outcome Measure. 2b. Based on self-report, Karolina will be able to feed self finger foods with the left hand with increased time (e.g. , pretzels, apple slices). - Exercises 9 Descriptor UE motor planning. Supine. Sh abd. Small and large circles both directions. 1 x 10 each. Sh abd. Small and large figure 8 both directions. 1 x 10 each. Above eye level sh flex. Small circles both directions. 1 x 10 each. ER. Hands positioned behind head. 3 x 10. 6 Descriptor Sh ROM. Standing. Wall walks x 5 steps to the right <--> left w/ hands above head. 1 x 7 cycles . Snow griffin at wall. 1 x 10. 5 Descriptor N/A Seated. Row machine. 20# resistance. 3 x 10 repetitions . Seated. Lat pulldown. 10# resistance. 3 x 10 repetitions . 4 Descriptor UE ROM. Upper trap stretch. Pec stretch. Manual/ROM by therapist L UE. Addressed pec tightness and distal bicep tightness at site of insertion. Chest stretch w/ sh ext bilateral. 3 Descriptor Supine. UE strengthening. Sh flex. 3# DB 3 x 10. Sh abd. 2# DB. 3 x 10. Elbow flex/ext. 3# DB. 3 x 10. (at side and with arm positioned in sh abd of 90 degrees). N/A 12/15. Sh ext. 3# DB. 2 x 10. 2# DB 1 x 10. w/ forearm supination. Sh flex cane --> overhead. 2# ankle weight. 3 x 10. 2 Descriptor Supine. Sh hor abd and ER. 2# DB. 3x10 . Blocking at elbow. ER. 2# DB. 3x10. Blocking provided by therapist. Elbow ext/skull crushers. 3# DB. 3x10. Blocking provided by therapist. Elbow ext w/ sh in 90 degrees abd. 2# DB. 3x10. Blocking provided by therapist. Wrist ext. 3# DB. 3 x 10. Blocking provided by therapist . Forearm supination. 3# DB. 3 x 10. - Assessment Assessment of Improvement Karolina reported that she is getting an MRI d/t only some relief from chiropractor and massage treatments; she has contacted PCP and is awaiting auth of MRI. Continued w/ upper extremity exercises in supine. Continued to recommend completion of left upper extremity exercises in supine at home. Improved isolation w/ UE coordination exercises at shoulder versus w/ incorporation of the elbow w/ sh flex at shoulder height and sh abd at shoulder height. Decreased coordination of UE noted w/ above shoulder height coordination exercises. Overall, good session. Karolina would likely continue benefit from outpatient OT to address L UE weakness, motor planning, awareness of L UE in space, and functional abilities to support Karolina's success with active participation in meaningful activities in a variety of environments. - Plan Therapy Recommendations Continue with Current Program, Advance per Rehabilitation Protocol
--- NOTE | 2021-12-22 12:01 | OT.OPPN ---
Current Diagnoses Cerebral infarction, unspecified (12/22/21) Other lack of coordination (12/22/21) Other symptoms and signs involving the musculoskeletal system (12/22/21) Weakness (12/22/21) OT Progress Note OT Outpatient Treatment Note - Adult Start: 03/26/21 15:29 Freq: Status: Active Protocol: Document 12/22/21 11:48 AMS (Rec: 12/22/21 12:00 AMS [id number]) OT Outpatient Adult Treatment Note Session Time Visit Start Time 09:30 Visit Stop Time 10:15 Total Visit Minutes 45 Visit Information Visit Number 09/07; visits => 20th visit KX modifier Plan of Care Dates 12/22/21 - 03/16/22 Insurance Information Medicare Setting Treatment Setting Outpatient Care Visit Type Note Type Progress Note General Information General Information Patient is a 66 year-old right hand dominant female referred to outpatient OT secondary to thalamic CVA resulting in left sided weakness. PMH: Significant for back pain; diabetes II; neuropathy; stroke/TIA; bilateral rotator cuff tears w/ PT as treatment. - Subjective Identification Type Name Identification Reconciled With Medical Record Observations I am going to have an MRI this afternoon per Karolina. I wish it was going faster per Karolina in re: recovery of the arm. Patient/Caregiver Compliance with Home Good Exercise Program - Objective Objective Measurements Please refer to below for progress towards meeting established OT goals. Short Term Goals 1. Karolina will present with improved range of motion of the left upper extremity which will support her ability to engage in meaningful activities: 1a. 0-105 degrees active left shoulder abduction. 12/22/21 = 0-90 degrees (vs 0-85 degrees vs initial 0-47) 2. Karolina will present with improved strength of the left upper extremity which will support her ability to engage in meaningful activities: 2a. 4/5 MMT testing L sh flexion. 12/22/21 = 3+/5 MMT 2b. 4/5 MMT testing L sh ER. 12/22/21 = 4-/5 MMT 2c. 4+/5 MMT testing L sh extension. 12/22/21 = 4/5 MMT GOALS MET 0-100 degrees left active elbow flexion. *MET 05/22/21 0- 135 versus initial 0-90 Avg 15.0# of force w/ L dynamometer II strength testing. *MET 9/24/21; avg 20. 0# of force. 0-60 degrees left active sh flex. *MET 05/22/21; 0-80 vs initial 0-45 0-60 degrees left active sh abd. *MET 05/22/21; 0-75 vs initial 0-47 0-100 degrees active left shoulder flexion. *MET ; 0-110 vs initial 0-45 0-30 degrees active left shoulder ER. *MET 07/16/21; 0- 60 degrees vs initial 0-10 0-120 degrees active left shoulder flexion. *MET 10/30/21; 0-120 degrees vs initial 0-45 0-85 degrees active left shoulder abduction. *MET ; 0-85 degrees vs initial 0- 47 Core Winder Machine Operator Goals 1. Karolina will be modified independent with upper extremity home exercise program utilizing provided written and visual instructions from therapist. = 50% met 2. Karolina will present with improved functional abilities of the left hand: 2a. Karolina will obtain a score of 25.0 or less on the QuickDASH UE Outcome Measure. 12/22/21 = 50.0 score vs initial 54.55 2b. Based on self-report, Karolina will be able to feed self finger foods with the left hand with increased time (e.g. , pretzels, apple slices). = 25% met - Exercises 9 Descriptor UE motor planning. Supine. Sh abd. Small and large circles both directions. 1 x 10 each. Sh abd. Small and large figure 8 both directions. 1 x 10 each. Above eye level sh flex. Small circles both directions. 1 x 10 each. ER. Hands positioned behind head. 3 x 10. 5 Descriptor N/A Seated. Row machine. 20# resistance. 3 x 10 repetitions . Seated. Lat pulldown. 10# resistance. 3 x 10 repetitions . 4 Descriptor UE ROM. Upper trap stretch. Pec stretch. Manual/ROM by therapist L UE. Addressed pec tightness and distal bicep tightness at site of insertion. Chest stretch w/ sh ext bilateral. 3 Descriptor Supine. UE strengthening. Sh flex. 2# DB 3 x 10. Sh abd. 2# DB. 3 x 10. Elbow flex/ext. 3# DB. 3 x 10. (at side and with arm positioned in sh abd of 90 degrees). Sh ext. TB #3. 3 x 10. Sh hor abd. 1# DB. 3 x 10. N/A 12/15. Sh ext. 3# DB. 2 x 10. 2# DB 1 x 10. w/ forearm supination. Sh flex cane --> overhead. 2# ankle weight. 3 x 10. 2 Descriptor Supine. Sh hor abd and ER. 2# DB. 3x10 . Blocking at elbow. ER. 2# DB. 3x10. Blocking provided by therapist. Elbow ext/skull crushers. 3# DB. 3x10. Blocking provided by therapist. Elbow ext w/ sh in 90 degrees abd. 2# DB. 3x10. Blocking provided by therapist. Wrist ext. 3# DB. 3 x 10. Blocking provided by therapist . Forearm supination. 3# DB. 3 x 10. - Assessment Assessment of Improvement Karolina has made some progress over the last certification relative to right upper extremity active range of motion and right upper extremity strength; d/t right shoulder pain/discomfort and change in sensation Karolina 'paid less' attention to left upper extremity and functional incorporation, and treatment sessions had to be modified to not further exacerbate right sided symptoms. Karolina is scheduled to get an MRI this afternoon at cervical and thoracic levels. Karolina would likely continue benefit from outpatient OT to address L UE weakness, motor planning, awareness of L UE in space, and functional abilities to support Karolina's success with active participation in meaningful activities in a variety of environments. - Plan Therapy Recommendations Continue with Current Program, Advance per Rehabilitation Protocol Comment 12 weeks Comment 1 -2 times per week Therapeutic Contents Active Range of Motion, Adaptive Equipment Education, Client Education,Cognitive Skills Development,Functional Activities,Home Exercise Program,Joint Protection, Manual Therapy,Education, Neurodevelopment Treatment, Neuromuscular Re-Education, Self-Care,Stretching/ Flexibility Activities, Therapeutic Activities, Therapeutic Exercises, Modalities,Sensory Re- education Modalities As Needed,As Prescribed Types of Modalities E-Stim,Ice Massage,T.E.N. Stimulation,TENS Placement/ Application,Ultrasound Additional Types of Modalities Heat/Paraffin bath If you are in agreement with this Plan of Care, please return a signed and dated copy. I have reviewed this Plan of Care and certify that the skilled therapy services above are required to meet the patient?s needs. Physician Signature Date Printed Name and Credentials Clinical Instructor Signature Printed Name and Credentials
--- NOTE | 2021-12-24 12:22 | OT.OP.TRT ---
Visit Care Team Role Provider Type Xiomara Diego DO Attending Provider Physician Primary Care Provider Referring Provider Specialty: Family Practice Address: [address] [place] [address], [id number] Email: [email or web address] Occupational Therapy Treatment Note OT Outpatient Treatment Note - Adult Start: 03/26/21 15:29 Freq: Status: Active Protocol: Document 12/24/21 12:15 AMS (Rec: 12/24/21 12:22 AMS [id number]) OT Outpatient Adult Treatment Note Session Time Visit Start Time 09:30 Visit Stop Time 10:15 Total Visit Minutes 45 Visit Information Visit Number 10/08; visits => 20th visit KX modifier Plan of Care Dates 12/22/21 - 03/16/22 Insurance Information Medicare Setting Treatment Setting Outpatient Care Visit Type Note Type Treatment Note General Information General Information Patient is a 66 year-old right hand dominant female referred to outpatient OT secondary to thalamic CVA resulting in left sided weakness. PMH: Significant for back pain; diabetes II; neuropathy; stroke/TIA; bilateral rotator cuff tears w/ PT as treatment. - Subjective Identification Type Name Identification Reconciled With Medical Record Observations MRI showed symptoms are d/t degeneration at C5, C6, C7 w/ R worse than L. Patient/Caregiver Compliance with Home Good Exercise Program - Objective Objective Measurements Please refer to below for progress towards meeting established OT goals. Short Term Goals 1. Karolina will present with improved range of motion of the left upper extremity which will support her ability to engage in meaningful activities: 1a. 0-105 degrees active left shoulder abduction. 12/22/21 = 0-90 degrees (vs 0-85 degrees vs initial 0-47) 2. Karolina will present with improved strength of the left upper extremity which will support her ability to engage in meaningful activities: 2a. 4/5 MMT testing L sh flexion. 12/22/21 = 3+/5 MMT 2b. 4/5 MMT testing L sh ER. 12/22/21 = 4-/5 MMT 2c. 4+/5 MMT testing L sh extension. 12/22/21 = 4/5 MMT GOALS MET 0-100 degrees left active elbow flexion. *MET 05/22/21 0- 135 versus initial 0-90 Avg 15.0# of force w/ L dynamometer II strength testing. *MET 05/22/21; avg 20. 0# of force. 0-60 degrees left active sh flex. *MET 05/22/21; 0-80 vs initial 0-45 0-60 degrees left active sh abd. *MET 05/22/21; 0-75 vs initial 0-47 0-100 degrees active left shoulder flexion. *MET ; 0-110 vs initial 0-45 0-30 degrees active left shoulder ER. *MET 07/16/21; 0- 60 degrees vs initial 0-10 0-120 degrees active left shoulder flexion. *MET 10/30/21; 0-120 degrees vs initial 0-45 0-85 degrees active left shoulder abduction. *MET ; 0-85 degrees vs initial 0- 47 [employer] Goals 1. Karolina will be modified independent with upper extremity home exercise program utilizing provided written and visual instructions from therapist. = 50% met 2. Karolina will present with improved functional abilities of the left hand: 2a. Karolina will obtain a score of 25.0 or less on the QuickDASH UE Outcome Measure. 12/22/21 = 50.0 score vs initial 54.55 2b. Based on self-report, Karolina will be able to feed self finger foods with the left hand with increased time (e.g. , pretzels, apple slices). = 25% met - Exercises 9 Descriptor UE motor planning. Supine. Sh abd. Small and large circles both directions. 1 x 10 each. Sh abd. Small and large figure 8 both directions. 1 x 10 each. Above eye level sh flex. Small circles both directions. 1 x 10 each. ER. Hands positioned behind head. 3 x 10. Symmetrical/Asymmetrical coordination of the UEs. 5 Descriptor N/A Seated. Row machine. 20# resistance. 3 x 10 repetitions . Seated. Lat pulldown. 10# resistance. 3 x 10 repetitions . 4 Descriptor UE ROM. Upper trap stretch. Pec stretch. Manual/ROM by therapist L UE. Addressed pec tightness and distal bicep tightness at site of insertion. Chest stretch w/ sh ext bilateral. 3 Descriptor Supine. UE strengthening. Sh flex. 2# DB 3 x 10. Sh abd. 2# DB. 3 x 10. Elbow flex/ext. 4# DB. 3 x 10. (at side and with arm positioned in sh abd of 90 degrees). Sh ext. TB #3. 3 x 10. Sh hor abd. 1# DB. 3 x 10. N/A 12/15. Sh ext. 3# DB. 2 x 10. 2# DB 1 x 10. w/ forearm supination. Sh flex cane --> overhead. 2# ankle weight. 3 x 10. 2 Descriptor Supine. Sh hor abd and ER. 2# DB. 3x10 . Blocking at elbow. ER. 2# DB. 3x10. Blocking provided by therapist. Elbow ext/skull crushers. 3# DB. 3x10. Blocking provided by therapist. Elbow ext w/ sh in 90 degrees abd. 2# DB. 3x10. Blocking provided by therapist. Wrist ext. 3# DB. 3 x 10. Blocking provided by therapist . Forearm supination. 3# DB. 3 x 10. - Assessment Assessment of Improvement Per Karolina, results of MRI indicate degenerative changes at C5, C6, and C7 w/ R side worse than L. She has been referred to PT and is being treated by a chiropractor. OT focusing on rehab of L UE. Therapist continued w/ supine strengthening exercises, increased resistance w/ some UE strengthening, and increased focus on coordination of upper extremities w/ asymmetrical/ symmetrical movement patterns. Recommend introducing object based coordination activities at time of next treatment session (cup w/ ball, plate w/ object). Improving L UE coordination at sh level; decreased elbow flex/ext to support motor planning of the UE. Overall, good session. Karolina would likely continue benefit from outpatient OT to address L UE weakness, motor planning, awareness of L UE in space, and functional abilities to support Karolina's success with active participation in meaningful activities in a variety of environments. Home Exercise Program Recommended working on asymmetrical and symmetrical coordination of upper extremities for motor planning /orientation to midline/ bimanual coordination. Recommended carrying water bottle in right hand. - Plan Therapy Recommendations Continue with Current Program, Advance per Rehabilitation Protocol
--- NOTE | 2022-01-07 14:40 | OT.OP.TRT ---
Visit Care Team Role Provider Type Xiomara Diego DO Attending Provider Physician Primary Care Provider Referring Provider Specialty: Family Practice Address: [address] [place] [address], [id number] Email: [email or web address] Occupational Therapy Treatment Note OT Outpatient Treatment Note - Adult Start: 03/26/21 15:29 Freq: Status: Active Protocol: Document 01/07/22 14:35 AMS (Rec: 01/07/22 14:40 AMS [id number]) OT Outpatient Adult Treatment Note Session Time Visit Start Time 09:30 Visit Stop Time 10:15 Total Visit Minutes 45 Visit Information Visit Number 11/05; visits => 20th visit KX modifier Plan of Care Dates 12/22/21 - 03/16/22 Insurance Information Medicare Setting Treatment Setting Outpatient Care Visit Type Note Type Treatment Note General Information General Information Patient is a 66 year-old right hand dominant female referred to outpatient OT secondary to thalamic CVA resulting in left sided weakness. PMH: Significant for back pain; diabetes II; neuropathy; stroke/TIA; bilateral rotator cuff tears w/ PT as treatment. - Subjective Identification Type Name Identification Reconciled With Medical Record Observations I have a hard time handing anything to anybody per Karolina. 12/24/21 = MRI showed symptoms are d/t degeneration at C5, C6 , C7 w/ R worse than L. Patient/Caregiver Compliance with Home Good Exercise Program - Objective Objective Measurements Please refer to below for progress towards meeting established OT goals. Short Term Goals 1. Karolina will present with improved range of motion of the left upper extremity which will support her ability to engage in meaningful activities: 1a. 0-105 degrees active left shoulder abduction. 12/22/21 = 0-90 degrees (vs 0-85 degrees vs initial 0-47) 2. Karolina will present with improved strength of the left upper extremity which will support her ability to engage in meaningful activities: 2a. 4/5 MMT testing L sh flexion. 12/22/21 = 3+/5 MMT 2b. 4/5 MMT testing L sh ER. 12/22/21 = 4-/5 MMT 2c. 4+/5 MMT testing L sh extension. 12/22/21 = 4/5 MMT GOALS MET 0-100 degrees left active elbow flexion. *MET 05/22/21 0- 135 versus initial 0-90 Avg 15.0# of force w/ L dynamometer II strength testing. *MET 05/22/21; avg 20. 0# of force. 0-60 degrees left active sh flex. *MET 05/22/21; 0-80 vs initial 0-45 0-60 degrees left active sh abd. *MET 05/22/21; 0-75 vs initial 0-47 0-100 degrees active left shoulder flexion. *MET ; 0-110 vs initial 0-45 0-30 degrees active left shoulder ER. *MET 07/16/21; 0- 60 degrees vs initial 0-10 0-120 degrees active left shoulder flexion. *MET 10/30/21; 0-120 degrees vs initial 0-45 0-85 degrees active left shoulder abduction. *MET ; 0-85 degrees vs initial 0- 47 [place] Goals 1. Karolina will be modified independent with upper extremity home exercise program utilizing provided written and visual instructions from therapist. = 50% met 2. Karolina will present with improved functional abilities of the left hand: 2a. Karolina will obtain a score of 25.0 or less on the QuickDASH UE Outcome Measure. 12/22/21 = 50.0 score vs initial 54.55 2b. Based on self-report, Karolina will be able to feed self finger foods with the left hand with increased time (e.g. , pretzels, apple slices). = 25% met - Treatment 1 Descriptor UE coordination w/ objects. [employer] stacking. Lining up of dominoes vertically. Cup manipulation. Line flip. Cup stack. Pouring ball between cups (close and away from body). Bowl w/ CW and CCW ball circles. Exercises 9 Descriptor UE motor planning. Supine. Sh abd. Small and large circles both directions. 1 x 10 each. Sh abd. Small and large figure 8 both directions. 1 x 10 each. Above eye level sh flex. Small circles both directions. 1 x 10 each. ER. Hands positioned behind head. 3 x 10. Symmetrical/Asymmetrical coordination of the UEs. 5 Descriptor N/A Seated. Row machine. 20# resistance. 3 x 10 repetitions . Seated. Lat pulldown. 10# resistance. 3 x 10 repetitions . 4 Descriptor UE ROM. Upper trap stretch. Pec stretch. Manual/ROM by therapist L UE. Addressed pec tightness and distal bicep tightness at site of insertion. Chest stretch w/ sh ext bilateral. 3 Descriptor Supine. UE strengthening. Sh flex. 2# DB 3 x 10. Sh abd. 2# DB. 3 x 10. Elbow flex/ext. 4# DB. 3 x 10. (at side and with arm positioned in sh abd of 90 degrees). Sh ext. TB #3. 3 x 10. Sh hor abd. TB #3. DB. 3 x 10. N/A 12/15. Sh ext. 3# DB. 2 x 10. 2# DB 1 x 10. w/ forearm supination. Sh flex cane --> overhead. 2# ankle weight. 3 x 10. 2 Descriptor Supine. Sh hor abd and ER. 2# DB. 3x10 . Blocking at elbow. ER. 2# DB. 3x10. Blocking provided by therapist. Elbow ext/skull crushers. 3# DB. 3x10. Blocking provided by therapist. Elbow ext w/ sh in 90 degrees abd. 2# DB. 3x10. Blocking provided by therapist. Wrist ext. 3# DB. 3 x 10. Blocking provided by therapist . Forearm supination. 3# DB. 3 x 10. - Assessment Assessment of Improvement Karolina reports decline in R UE pain/discomfort. Concerns continue to be verbalized in re: lack of coordination of UE. Continued w/ supine strengthening exercises, increased resistance w/ some UE strengthening. Introduced object based coordination activities; compensatory shoulder hiking/postural changes to support L UE function. However, was able to manage object manipulation without touching TT w/ rotation of object! Overall, good session. Karolina would likely continue benefit from outpatient OT to address L UE weakness, motor planning, awareness of L UE in space, and functional abilities to support Karolina's success with active participation in meaningful activities in a variety of environments. Home Exercise Program Recommended working on asymmetrical and symmetrical coordination of upper extremities for motor planning /orientation to midline/ bimanual coordination. Recommended carrying water bottle in right hand. - Plan Therapy Recommendations Continue with Current Program, Advance per Rehabilitation Protocol
--- NOTE | 2022-01-11 09:53 | OT.OP.TRT ---
Visit Care Team Role Provider Type Xiomara Diego DO Attending Provider Physician Primary Care Provider Referring Provider Specialty: Family Practice Address: [address] [place] [address], [id number] Email: [email or web address] Occupational Therapy Treatment Note OT Outpatient Treatment Note - Adult Start: 03/26/21 15:29 Freq: Status: Active Protocol: Document 01/11/22 09:46 AMS (Rec: 01/11/22 09:53 AMS [id number]) OT Outpatient Adult Treatment Note Session Time Visit Start Time 08:30 Visit Stop Time 09:15 Total Visit Minutes 45 Visit Information Visit Number 12/06; visits => 20th visit KX modifier Plan of Care Dates 12/22/21 - 03/16/22 Insurance Information Medicare Setting Treatment Setting Outpatient Care Visit Type Note Type Treatment Note General Information General Information Patient is a 66 year-old right hand dominant female referred to outpatient OT secondary to thalamic CVA resulting in left sided weakness. PMH: Significant for back pain; diabetes II; neuropathy; stroke/TIA; bilateral rotator cuff tears w/ PT as treatment. - Subjective Identification Type Name Identification Reconciled With Medical Record Observations It took me forever to do the zipties on the chicken coop per Karolina. 12/24/21 = MRI showed symptoms are d/t degeneration at C5, C6 , C7 w/ R worse than L. Patient/Caregiver Compliance with Home Good Exercise Program - Objective Objective Measurements Please refer to below for progress towards meeting established OT goals. Short Term Goals 1. Karolina will present with improved range of motion of the left upper extremity which will support her ability to engage in meaningful activities: 1a. 0-105 degrees active left shoulder abduction. 12/22/21 = 0-90 degrees (vs 0-85 degrees vs initial 0-47) 2. Karolina will present with improved strength of the left upper extremity which will support her ability to engage in meaningful activities: 2a. 4/5 MMT testing L sh flexion. 12/22/21 = 3+/5 MMT 2b. 4/5 MMT testing L sh ER. 12/22/21 = 4-/5 MMT 2c. 4+/5 MMT testing L sh extension. 12/22/21 = 4/5 MMT GOALS MET 0-100 degrees left active elbow flexion. *MET 05/22/21 0- 135 versus initial 0-90 Avg 15.0# of force w/ L dynamometer II strength testing. *MET 05/22/21; avg 20. 0# of force. 0-60 degrees left active sh flex. *MET 05/22/21; 0-80 vs initial 0-45 0-60 degrees left active sh abd. *MET 05/22/21; 0-75 vs initial 0-47 0-100 degrees active left shoulder flexion. *MET ; 0-110 vs initial 0-45 0-30 degrees active left shoulder ER. *MET 07/16/21; 0- 60 degrees vs initial 0-10 0-120 degrees active left shoulder flexion. *MET 10/30/21; 0-120 degrees vs initial 0-45 0-85 degrees active left shoulder abduction. *MET ; 0-85 degrees vs initial 0- 47 [facility] Goals 1. Karolina will be modified independent with upper extremity home exercise program utilizing provided written and visual instructions from therapist. = 50% met 2. Karolina will present with improved functional abilities of the left hand: 2a. Karolina will obtain a score of 25.0 or less on the QuickDASH UE Outcome Measure. 12/22/21 = 50.0 score vs initial 54.55 2b. Based on self-report, Karolina will be able to feed self finger foods with the left hand with increased time (e.g. , pretzels, apple slices). = 25% met - Treatment 1 Descriptor UE coordination w/ objects. Cup manipulation. Line flip. Cup stack. Pouring ball between cups (close and away from body). Yarn weaving x 3 dowels; unilaterally and bimanually. Yarn tie off x 3 dowels; unilaterally. N/A 5/16 Bowl w/ CW and CCW ball circles. Car Distributor stacking. Lining up of dominoes vertically. Exercises 9 Descriptor UE motor planning. Supine. Sh abd. Small and large circles both directions. 1 x 10 each. Sh abd. Small and large figure 8 both directions. 1 x 10 each. Above eye level sh flex. Small circles both directions. 1 x 10 each. ER. Hands positioned behind head. 3 x 10. Symmetrical/Asymmetrical coordination of the UEs. 5 Descriptor N/A Seated. Row machine. 20# resistance. 3 x 10 repetitions . Seated. Lat pulldown. 10# resistance. 3 x 10 repetitions . 4 Descriptor UE ROM. Upper trap stretch. Pec stretch. Manual/ROM by therapist L UE. Addressed pec tightness and distal bicep tightness at site of insertion. Chest stretch w/ sh ext bilateral. 3 Descriptor Supine. UE strengthening. Sh flex. 2# DB 3 x 10. Sh abd. 2# DB. 3 x 10. Elbow flex/ext. 5# DB. 3 x 10. (at side and with arm positioned in sh abd of 90 degrees). Sh ext. TB #3. 3 x 10. Sh hor abd. TB #3. DB. 3 x 10. N/A 12/15. Sh ext. 3# DB. 2 x 10. 2# DB 1 x 10. w/ forearm supination. Sh flex cane --> overhead. 2# ankle weight. 3 x 10. 2 Descriptor Supine. Sh hor abd and ER. 2# DB. 3x10 . Blocking at elbow. ER. 2# DB. 3x10. Blocking provided by therapist. Elbow ext/skull crushers. 3# DB. 3x10. Blocking provided by therapist. Elbow ext w/ sh in 90 degrees abd. 2# DB. 3x10. Blocking provided by therapist. Wrist ext. 3# DB. 3 x 10. Blocking provided by therapist . Forearm supination. 3# DB. 3 x 10. - Assessment Assessment of Improvement Karolina reported that R UE pain/ discomfort is a lot better. Concerns continue to be verbalized in re: lack of coordination of UE given 'that it has been over a year since the stroke'. Continued w/ supine strengthening exercises and increased resistance w/ some UE strengthening. Decreased coordination supine w/ increased resistance w/ bicep curcls. Continued w/ object based unilateral and bimanual coordination activities; improved coordination w/ decreased errors (knocking over and/or need to re-attempt initial grasp) w/ flipping and pouring cup based activities. Introduced yarn weaving and yarn 'tie off' activity; improved fluidity w/ repetitions. Increased reliance on R UE for problem solving coordination difficulties w/ bimanual tasks and compensatory shoulder hiking/postural changes to support L UE function. Overall , good session. Karolina would likely continue benefit from outpatient OT to address L UE weakness, motor planning, awareness of L UE in space, and functional abilities to support Karolina's success with active participation in meaningful activities in a variety of environments. Home Exercise Program Discussed yarn based activities to practice at home (given h/o crocheting). - Plan Therapy Recommendations Continue with Current Program, Advance per Rehabilitation Protocol
--- NOTE | 2022-01-14 11:05 | OT.OP.TRT ---
Visit Care Team Role Provider Type Xiomara Diego DO Attending Provider Physician Primary Care Provider Referring Provider Specialty: Family Practice Address: [address] [place] [address], [id number] Email: [email or web address] Occupational Therapy Treatment Note OT Outpatient Treatment Note - Adult Start: 03/26/21 15:29 Freq: Status: Active Protocol: Document 01/14/22 10:47 AMS (Rec: 01/14/22 11:05 AMS [id number]) OT Outpatient Adult Treatment Note Session Time Visit Start Time 09:30 Visit Stop Time 10:15 Total Visit Minutes 45 Visit Information Visit Number 01/05; visits => 20th visit KX modifier Plan of Care Dates 12/22/21 - 03/16/22 Insurance Information Medicare Setting Treatment Setting Outpatient Care Visit Type Note Type Treatment Note General Information General Information Patient is a 66 year-old right hand dominant female referred to outpatient OT secondary to thalamic CVA resulting in left sided weakness. PMH: Significant for back pain; diabetes II; neuropathy; stroke/TIA; bilateral rotator cuff tears w/ PT as treatment. - Subjective Identification Type Name Identification Reconciled With Medical Record Observations I couldn't even touch my middle/third finger when I in [place] per Karolina. 12/24/21 = MRI showed symptoms are d/t degeneration at C5, C6 , C7 w/ R worse than L. Patient/Caregiver Compliance with Home Good Exercise Program - Objective Objective Measurements Please refer to below for progress towards meeting established OT goals. Short Term Goals 1. Karolina will present with improved range of motion of the left upper extremity which will support her ability to engage in meaningful activities: 1a. 0-105 degrees active left shoulder abduction. 12/22/21 = 0-90 degrees (vs 0-85 degrees vs initial 0-47) 2. Karolina will present with improved strength of the left upper extremity which will support her ability to engage in meaningful activities: 2a. 4/5 MMT testing L sh flexion. 12/22/21 = 3+/5 MMT 2b. 4/5 MMT testing L sh ER. 12/22/21 = 4-/5 MMT 2c. 4+/5 MMT testing L sh extension. 12/22/21 = 4/5 MMT GOALS MET 0-100 degrees left active elbow flexion. *MET 05/22/21 0- 135 versus initial 0-90 Avg 15.0# of force w/ L dynamometer II strength testing. *MET 05/22/21; avg 20. 0# of force. 0-60 degrees left active sh flex. *MET 05/22/21; 0-80 vs initial 0-45 0-60 degrees left active sh abd. *MET 05/22/21; 0-75 vs initial 0-47 0-100 degrees active left shoulder flexion. *MET ; 0-110 vs initial 0-45 0-30 degrees active left shoulder ER. *MET 07/16/21; 0- 60 degrees vs initial 0-10 0-120 degrees active left shoulder flexion. *MET 10/30/21; 0-120 degrees vs initial 0-45 0-85 degrees active left shoulder abduction. *MET ; 0-85 degrees vs initial 0- 47 Stone [employer] Goals 1. Karolina will be modified independent with upper extremity home exercise program utilizing provided written and visual instructions from therapist. = 50% met 2. Karolina will present with improved functional abilities of the left hand: 2a. Karolina will obtain a score of 25.0 or less on the QuickDASH UE Outcome Measure. 12/22/21 = 50.0 score vs initial 54.55 2b. Based on self-report, Karolina will be able to feed self finger foods with the left hand with increased time (e.g. , pretzels, apple slices). = 25% met - Treatment 1 Descriptor UE coordination w/ objects. Focus on eye-hand coordination in today's treatment session. Tennis ball - eye hand coordination. Seated (single bounce to floor between feet and catch - throw and catch left handed; single bounce to floor to left of body - throw and catch left handed; single bounce to floor --> wall --> catch - right hand throw and left handed catch - left hand throw and left handed catch). Seated TT (single bounce on table - drop and catch left handed in front of body; drop and left handed to left of body). N/A 01/14/22 = Cup manipulation . Line flip. Cup stack. Pouring ball between cups ( close and away from body). Yarn weaving x 3 dowels; unilaterally and bimanually. Yarn tie off x 3 dowels; unilaterally. Bowl w/ CW and CCW ball circles. Plumbing Drafter stacking. Lining up of dominoes vertically. Exercises 9 Descriptor UE motor planning. Supine. PNF diagonal focus. Right hip to left diagonal. N/A 01/14/22 Sh abd. Small and large circles both directions. 1 x 10 each. Sh abd. Small and large figure 8 both directions. 1 x 10 each. ER. Hands positioned behind head. 3 x 10. Symmetrical/Asymmetrical coordination of the UEs. 4 Descriptor UE ROM. Upper trap stretch. Pec stretch. Manual/ROM by therapist L UE. Addressed pec tightness and distal bicep tightness at site of insertion. Chest stretch w/ sh ext bilateral. 3 Descriptor Supine. UE strengthening. Sh flex. 2# DB 3 x 10. Sh abd. 2# DB. 3 x 10. Sh ext. TB #3. 3 x 10. Sh hor abd. TB #3. DB. 3 x 10. PNF diagonal. 1# DB. CGA to min phys assist blocking to assist w/ motor planning. 3 x 10. Sh hor abd and ER. 2# DB. 3x10 . Blocking at elbow. ER. 2# DB. 3x10. Blocking provided by therapist. 2 Descriptor Supine. Elbow ext/skull crushers. 3# DB. 3 x 10. Blocking provided by therapist. Elbow flex/ext. 4# DB. 3 x 10. - Assessment Assessment of Improvement Continued w/ supine strengthening exercises; no changes to resistance w/ UE strengthening. Re-introduced UE PNF diagonal w/ light resistance. Returned to 4# DB w/ bicep curl w/ better coordination/control at wrist level. Continued w/ object based coordination activities; re-introduced eye-hand coordination activities w/ improved motor planning/speed of reaction to tennis ball noted! Able to progress from seated bounce and catch w/ left hand in front of body --> to left of body --> to seated bounce and catch w/ inclusion of wall --> to seated bounce and catch of ball at TT level in front of body and to left of body! All eye-hand coordination tasks were completed w/ drop and catch ( with forearm supinated/palm up ). Will look to progress eye- hand coordination activities as able. Overall, good session . Karolina would likely continue benefit from outpatient OT to address L UE weakness, motor planning, awareness of L UE in space, and functional abilities to support Karolina's success with active participation in meaningful activities in a variety of environments. Home Exercise Program Discussed execution of PNF diagonals in the home given h/ o execution of coordination task in supine and eye-hand coordination activities seated w/ use of tennis ball given h /o playing tennis. - Plan Therapy Recommendations Continue with Current Program, Advance per Rehabilitation Protocol
--- NOTE | 2022-01-19 16:00 | OT.OP.TRT ---
Visit Care Team Role Provider Type Xiomara Diego DO Attending Provider Physician Primary Care Provider Referring Provider Specialty: Family Practice Address: [address] [place] [address], [address] Email: [email or web address] Occupational Therapy Treatment Note OT Outpatient Treatment Note - Adult Start: 03/26/21 15:29 Freq: Status: Active Protocol: Document 01/19/22 15:52 AMS (Rec: 01/19/22 16:00 AMS [id number]) OT Outpatient Adult Treatment Note Session Time Visit Start Time 09:30 Visit Stop Time 10:15 Total Visit Minutes 45 Visit Information Visit Number 02/05; visits => 20th visit KX modifier Plan of Care Dates 12/22/21 - 03/16/22 Insurance Information Medicare Setting Treatment Setting Outpatient Care Visit Type Note Type Treatment Note General Information General Information Patient is a 66 year-old right hand dominant female referred to outpatient OT secondary to thalamic CVA resulting in left sided weakness. PMH: Significant for back pain; diabetes II; neuropathy; stroke/TIA; bilateral rotator cuff tears w/ PT as treatment. - Subjective Identification Type Name Identification Reconciled With Medical Record Observations I had a hard time cleaning out my green house this weekend per Karolina. 12/24/21 = MRI showed symptoms are d/t degeneration at C5, C6 , C7 w/ R worse than L. Patient/Caregiver Compliance with Home Good Exercise Program - Objective Objective Measurements Please refer to below for progress towards meeting established OT goals. Short Term Goals 1. Karolina will present with improved range of motion of the left upper extremity which will support her ability to engage in meaningful activities: 1a. 0-105 degrees active left shoulder abduction. 12/22/21 = 0-90 degrees (vs 0-85 degrees vs initial 0-47) 2. Karolina will present with improved strength of the left upper extremity which will support her ability to engage in meaningful activities: 2a. 4/5 MMT testing L sh flexion. 12/22/21 = 3+/5 MMT 2b. 4/5 MMT testing L sh ER. 12/22/21 = 4-/5 MMT 2c. 4+/5 MMT testing L sh extension. 12/22/21 = 4/5 MMT GOALS MET 0-100 degrees left active elbow flexion. *MET 05/22/21 0- 135 versus initial 0-90 Avg 15.0# of force w/ L dynamometer II strength testing. *MET 05/22/21; avg 20. 0# of force. 0-60 degrees left active sh flex. *MET 05/22/21; 0-80 vs initial 0-45 0-60 degrees left active sh abd. *MET 05/22/21; 0-75 vs initial 0-47 0-100 degrees active left shoulder flexion. *MET ; 0-110 vs initial 0-45 0-30 degrees active left shoulder ER. *MET 07/16/21; 0- 60 degrees vs initial 0-10 0-120 degrees active left shoulder flexion. *MET 10/30/21; 0-120 degrees vs initial 0-45 0-85 degrees active left shoulder abduction. *MET ; 0-85 degrees vs initial 0- 47 Csr Goals 1. Karolina will be modified independent with upper extremity home exercise program utilizing provided written and visual instructions from therapist. = 50% met 2. Karolina will present with improved functional abilities of the left hand: 2a. Karolina will obtain a score of 25.0 or less on the QuickDASH UE Outcome Measure. 12/22/21 = 50.0 score vs initial 54.55 2b. Based on self-report, Karolina will be able to feed self finger foods with the left hand with increased time (e.g. , pretzels, apple slices). = 25% met - Treatment 2 Descriptor In-hand manipulation. 2 balls in hand - around-the- world (both directions). Leap frog (prox --> distal attempted only). 1 Descriptor UE coordination w/ objects. Eye-hand coordination. Tennis ball - eye hand coordination. Seated (single bounce to floor between feet and catch - throw and catch left handed; single bounce to floor to left of body - throw and catch left handed). Introduced w/ forearm in pronation and catch w/ fingers . Seated TT (single bounce on table - drop and catch left handed in front of body). Introduced release at lower height. N/A 01/14/22 = Cup manipulation . Line flip. Cup stack. Pouring ball between cups ( close and away from body). Yarn weaving x 3 dowels; unilaterally and bimanually. Yarn tie off x 3 dowels; unilaterally. Bowl w/ CW and CCW ball circles. Transportation Job Titles stacking. Lining up of dominoes vertically. Exercises 9 Descriptor UE motor planning. Supine. PNF diagonal focus. Right hip to left diagonal. N/A 01/14/22 Sh abd. Small and large circles both directions. 1 x 10 each. Sh abd. Small and large figure 8 both directions. 1 x 10 each. ER. Hands positioned behind head. 3 x 10. Symmetrical/Asymmetrical coordination of the UEs. 4 Descriptor UE ROM. Upper trap stretch. Pec stretch. Manual/ROM by therapist L UE. Addressed pec tightness and distal bicep tightness at site of insertion. Chest stretch w/ sh ext bilateral. 3 Descriptor Supine. UE strengthening. Sh flex. 2# DB 3 x 10. Sh abd. 2# DB. 3 x 10. Sh ext. TB #3. 3 x 10. Sh hor abd. TB #3. DB. 3 x 10. PNF diagonal. 1# DB. CGA to min phys assist blocking to assist w/ motor planning. 3 x 10. Sh hor abd and ER. 2# DB. 3x10 . Blocking at elbow. ER. 2# DB. 3x10. Blocking provided by therapist. 2 Descriptor Supine. Elbow ext/skull crushers. 3# DB. 3 x 10. Blocking provided by therapist. Elbow flex/ext. 4# DB. 3 x 10. - Assessment Assessment of Improvement Continued w/ supine strengthening exercises; no changes to resistance w/ UE strengthening. Improved coordination w/ eye-hand coordination w/ use of tennis ball seated and w/ use of TT. Introduced catch and release at floor level while seated w/ forearm pronated; decreased success w/ catching w/ this approach; however, able to complete successfully intermittently. Advanced in- hand manipulation activities ( leap frog and [id number] in both directions); mod to maximum difficulty w/ execution. Increased active engagement of 4th and 5th digits w/ repetitions. Will look to progress eye-hand coordination activities as able. Recommended re- considering outpatient PT d/t balance/strength concerns. Overall, good session. Karoilna would likely continue benefit from outpatient OT to address L UE weakness, motor planning, awareness of L UE in space, and functional abilities to support Karolina's success with active participation in meaningful activities in a variety of environments. Home Exercise Program Recommended TT eye-hand coordination practice if chasing at floor level; recommended use of medium sized bouncy balls w/ in-hand manipulation exercises. Karolina denied questions. - Plan Therapy Recommendations Continue with Current Program, Advance per Rehabilitation Protocol
--- NOTE | 2022-01-21 13:31 | OT.OP.TRT ---
Visit Care Team Role Provider Type Xiomara Diego DO Attending Provider Physician Primary Care Provider Referring Provider Specialty: Family Practice Address: [address] [place] [address], [place], [address] Email: [email or web address] Occupational Therapy Treatment Note OT Outpatient Treatment Note - Adult Start: 03/26/21 15:29 Freq: Status: Active Protocol: Document 01/21/22 13:24 AMS (Rec: 01/21/22 13:31 AMS [id number]) OT Outpatient Adult Treatment Note Session Time Visit Start Time 09:30 Visit Stop Time 10:15 Total Visit Minutes 45 Visit Information Visit Number 03/07; visits => 20th visit KX modifier Plan of Care Dates 12/22/21 - 03/16/22 Insurance Information Medicare Setting Treatment Setting Outpatient Care Visit Type Note Type Treatment Note General Information General Information Patient is a 66 year-old right hand dominant female referred to outpatient OT secondary to thalamic CVA resulting in left sided weakness. PMH: Significant for back pain; diabetes II; neuropathy; stroke/TIA; bilateral rotator cuff tears w/ PT as treatment. - Subjective Identification Type Name Identification Reconciled With Medical Record Observations I have a hard time chopping with cooking per Karolina. 12/24/21 = MRI showed symptoms are d/t degeneration at C5, C6 , C7 w/ R worse than L. Patient/Caregiver Compliance with Home Good Exercise Program - Objective Objective Measurements Please refer to below for progress towards meeting established OT goals. Short Term Goals 1. Karolina will present with improved range of motion of the left upper extremity which will support her ability to engage in meaningful activities: 1a. 0-105 degrees active left shoulder abduction. 12/22/21 = 0-90 degrees (vs 0-85 degrees vs initial 0-47) 2. Karolina will present with improved strength of the left upper extremity which will support her ability to engage in meaningful activities: 2a. 4/5 MMT testing L sh flexion. 12/22/21 = 3+/5 MMT 2b. 4/5 MMT testing L sh ER. 12/22/21 = 4-/5 MMT 2c. 4+/5 MMT testing L sh extension. 12/22/21 = 4/5 MMT GOALS MET 0-100 degrees left active elbow flexion. *MET 05/22/21 0- 135 versus initial 0-90 Avg 15.0# of force w/ L dynamometer II strength testing. *MET 05/22/21; avg 20. 0# of force. 0-60 degrees left active sh flex. *MET 05/22/21; 0-80 vs initial 0-45 0-60 degrees left active sh abd. *MET 05/22/21; 0-75 vs initial 0-47 0-100 degrees active left shoulder flexion. *MET ; 0-110 vs initial 0-45 0-30 degrees active left shoulder ER. *MET 07/16/21; 0- 60 degrees vs initial 0-10 0-120 degrees active left shoulder flexion. *MET 10/30/21; 0-120 degrees vs initial 0-45 0-85 degrees active left shoulder abduction. *MET ; 0-85 degrees vs initial 0- 47 Manager Nursing Home Goals 1. Karolina will be modified independent with upper extremity home exercise program utilizing provided written and visual instructions from therapist. = 50% met 2. Karolina will present with improved functional abilities of the left hand: 2a. Karolina will obtain a score of 25.0 or less on the QuickDASH UE Outcome Measure. 12/22/21 = 50.0 score vs initial 54.55 2b. Based on self-report, Karolina will be able to feed self finger foods with the left hand with increased time (e.g. , pretzels, apple slices). = 25% met - Treatment 2 Descriptor In-hand manipulation. 2 balls in hand - around-the- world (both directions). Leap frog (prox --> distal attempted only). Standard pen. Inch worm both directions thumb web space/ palm down. Pen twist/spin. Pen twirl. Nuts and bolts. Inclusion of thumb 1 Descriptor UE coordination w/ objects. Eye-hand coordination. Tennis ball - eye hand coordination. Seated (single bounce to floor between feet and catch - throw and catch left handed). Seated TT (single bounce on table - drop and catch left handed in front of body). Underhand toss between hands. N/A 01/14/22 = Cup manipulation . Line flip. Cup stack. Pouring ball between cups ( close and away from body). Yarn weaving x 3 dowels; unilaterally and bimanually. Yarn tie off x 3 dowels; unilaterally. Bowl w/ CW and CCW ball circles. Plant Production Manager stacking. Lining up of dominoes vertically. Exercises 9 Descriptor UE motor planning. Supine. PNF diagonal focus. Right hip to left diagonal. N/A 01/14/22 Sh abd. Small and large circles both directions. 1 x 10 each. Sh abd. Small and large figure 8 both directions. 1 x 10 each. ER. Hands positioned behind head. 3 x 10. Symmetrical/Asymmetrical coordination of the UEs. 4 Descriptor UE ROM. Upper trap stretch. Pec stretch. Manual/ROM by therapist L UE. Addressed pec tightness and distal bicep tightness at site of insertion. Chest stretch w/ sh ext bilateral. 3 Descriptor Supine. UE strengthening. Sh flex. 2# DB 3 x 10. Sh abd. 2# DB. 3 x 10. Sh ext. TB #3. 3 x 10. Sh hor abd. TB #3. DB. 3 x 10. PNF diagonal. 1# DB. CGA to min phys assist blocking to assist w/ motor planning. 3 x 10. Sh hor abd and ER. 2# DB. 3x10 . Blocking at elbow. ER. 2# DB. 3x10. Blocking provided by therapist. 2 Descriptor Supine. Elbow ext/skull crushers. 3# DB. 3 x 10. Blocking provided by therapist. Elbow flex/ext. 4# DB. 3 x 10. - Assessment Assessment of Improvement Continued w/ supine strengthening exercises; no changes to resistance w/ UE strengthening. Improved coordination w/ PNF resisted diagonal. Improved coordination w/ eye-hand coordination w/ use of tennis ball seated and w/ use of TT. Introduced underhand toss between hands; decreased fluidity/min sh hiking/ contraction of L side of trunk . Improved in-hand coordination w/ 2 balls; mod difficulty w/ execution. Introduced pen coordination activities to support object manipulation/bimanual coordination; decreased speed and efficiency w/ twirl, inch worm, twirls. Mod difficulty w / walking fingers. Cueing to support inclusion of thumb w/ motor planning of nuts and bolts. Recommend transition to cup w/ eye-hand coordination; consider working on carrying of items, cutting, tearing paper. Overall, good session. Karolina would likely continue benefit from outpatient OT to address L UE weakness, motor planning, awareness of L UE in space, and functional abilities to support Karolina's success with active participation in meaningful activities in a variety of environments. - Plan Therapy Recommendations Continue with Current Program, Advance per Rehabilitation Protocol
--- NOTE | 2022-01-26 15:30 | OT.OP.TRT ---
Visit Care Team Role Provider Type Xiomara Diego DO Attending Provider Physician Primary Care Provider Referring Provider Specialty: Family Practice Address: [address] [place] [address], [id number] Email: [email or web address] Occupational Therapy Treatment Note OT Outpatient Treatment Note - Adult Start: 03/26/21 15:29 Freq: Status: Active Protocol: Document 01/26/22 15:30 AMS (Rec: 01/27/22 08:06 AMS [id number]) OT Outpatient Adult Treatment Note Session Time Visit Start Time 07:30 Visit Stop Time 08:15 Total Visit Minutes 45 Visit Information Visit Number 04/07; visits => 20th visit KX modifier Plan of Care Dates 12/22/21 - 03/16/22 Insurance Information Medicare Setting Treatment Setting Outpatient Care Visit Type Note Type Treatment Note General Information General Information Patient is a 66 year-old right hand dominant female referred to outpatient OT secondary to thalamic CVA resulting in left sided weakness. PMH: Significant for back pain; diabetes II; neuropathy; stroke/TIA; bilateral rotator cuff tears w/ PT as treatment. - Subjective Identification Type Name Identification Reconciled With Medical Record Observations I am having a hard time shaking the laundry out per Karolina. 12/24/21 = MRI showed symptoms are d/t degeneration at C5, C6 , C7 w/ R worse than L. Patient/Caregiver Compliance with Home Good Exercise Program - Objective Objective Measurements Please refer to below for progress towards meeting established OT goals. Short Term Goals 1. Karolina will present with improved range of motion of the left upper extremity which will support her ability to engage in meaningful activities: 1a. 0-105 degrees active left shoulder abduction. 12/22/21 = 0-90 degrees (vs 0-85 degrees vs initial 0-47) 2. Karolina will present with improved strength of the left upper extremity which will support her ability to engage in meaningful activities: 2a. 4/5 MMT testing L sh flexion. 12/22/21 = 3+/5 MMT 2b. 4/5 MMT testing L sh ER. 12/22/21 = 4-/5 MMT 2c. 4+/5 MMT testing L sh extension. 12/22/21 = 4/5 MMT GOALS MET 0-100 degrees left active elbow flexion. *MET 05/22/21 0- 135 versus initial 0-90 Avg 15.0# of force w/ L dynamometer II strength testing. *MET 05/22/21; avg 20. 0# of force. 0-60 degrees left active sh flex. *MET 05/22/21; 0-80 vs initial 0-45 0-60 degrees left active sh abd. *MET 05/22/21; 0-75 vs initial 0-47 0-100 degrees active left shoulder flexion. *MET ; 0-110 vs initial 0-45 0-30 degrees active left shoulder ER. *MET 07/16/21; 0- 60 degrees vs initial 0-10 0-120 degrees active left shoulder flexion. *MET 10/30/21; 0-120 degrees vs initial 0-45 0-85 degrees active left shoulder abduction. *MET ; 0-85 degrees vs initial 0- 47 Assisted Goals 1. Karolina will be modified independent with upper extremity home exercise program utilizing provided written and visual instructions from therapist. = 50% met 2. Karolina will present with improved functional abilities of the left hand: 2a. Karolina will obtain a score of 25.0 or less on the QuickDASH UE Outcome Measure. 12/22/21 = 50.0 score vs initial 54.55 2b. Based on self-report, Karolina will be able to feed self finger foods with the left hand with increased time (e.g. , pretzels, apple slices). = 25% met - Treatment 2 Descriptor In-hand manipulation. 2 balls in hand - around-the- world (both directions). Leap frog (prox --> distal attempted only). Standard pen. Inch worm both directions thumb web space/ palm down. Towel edge walk table; away from base of support. 1 Descriptor UE coordination w/ objects. Eye-hand coordination. Tennis ball - eye hand coordination. Seated (single bounce to floor between feet and catch - throw and catch left handed). Exercises 4 Descriptor UE ROM. Upper trap stretch. Pec stretch. Manual/ROM by therapist L UE. Addressed pec tightness and distal bicep tightness at site of insertion. Chest stretch w/ sh ext bilateral. 3 Descriptor Supine. UE strengthening. Sh flex. 2# DB 3 x 10. Sh abd. 2# DB. 3 x 10. Sh ext. TB #3. 3 x 10. Sh hor abd. TB #3. DB. 3 x 10. PNF diagonal. 1# DB. CGA to min phys assist blocking to assist w/ motor planning. 3 x 10. Sh hor abd and ER. 2# DB. 3x10 . Blocking at elbow. ER. 2# DB. 3x10. Blocking provided by therapist. 2 Descriptor Supine. Elbow ext/skull crushers. 3# DB. 3 x 10. Blocking provided by therapist. Elbow flex/ext. 4# DB. 3 x 10. - Assessment Assessment of Improvement Continued w/ supine strengthening exercises; no changes to resistance w/ UE strengthening. Improved coordination w/ pen coordination activities; introduced towel edge walking at TT and away from base of support; mod difficulty w/ execution of this skill. Recommend continuing w/ in- hand 2 ball manipulation; cueing to support inclusion of thumb w/ motor tasks. Recommend trialing tearing of paper, magazine manipulation, wall coordination slides at wall. Overall, good session. Karolina would likely continue benefit from outpatient OT to address L UE weakness, motor planning, awareness of L UE in space, and functional abilities to support Karolina's success with active participation in meaningful activities in a variety of environments. - Plan Therapy Recommendations Continue with Current Program, Advance per Rehabilitation Protocol
--- NOTE | 2022-01-28 15:55 | OT.OP.TRT ---
Visit Care Team Role Provider Type Xiomara Diego DO Attending Provider Physician Primary Care Provider Referring Provider Specialty: Family Practice Address: [address] [place] [address], [id number] Email: [email or web address] Occupational Therapy Treatment Note OT Outpatient Treatment Note - Adult Start: 03/26/21 15:29 Freq: Status: Active Protocol: Document 01/28/22 15:51 AMS (Rec: 01/28/22 15:55 AMS [id number]) OT Outpatient Adult Treatment Note Session Time Visit Start Time 09:30 Visit Stop Time 10:15 Total Visit Minutes 45 Visit Information Visit Number 05/08; visits => 20th visit KX modifier Plan of Care Dates 12/22/21 - 03/16/22 Insurance Information Medicare Setting Treatment Setting Outpatient Care Visit Type Note Type Treatment Note General Information General Information Patient is a 66 year-old right hand dominant female referred to outpatient OT secondary to thalamic CVA resulting in left sided weakness. PMH: Significant for back pain; diabetes II; neuropathy; stroke/TIA; bilateral rotator cuff tears w/ PT as treatment. - Subjective Identification Type Name Identification Reconciled With Medical Record Observations No new concerns were reported. 12/24/21 = MRI showed symptoms are d/t degeneration at C5, C6 , C7 w/ R worse than L. Patient/Caregiver Compliance with Home Good Exercise Program - Objective Objective Measurements Please refer to below for progress towards meeting established OT goals. Short Term Goals 1. Karolina will present with improved range of motion of the left upper extremity which will support her ability to engage in meaningful activities: 1a. 0-105 degrees active left shoulder abduction. 12/22/21 = 0-90 degrees (vs 0-85 degrees vs initial 0-47) 2. Karolina will present with improved strength of the left upper extremity which will support her ability to engage in meaningful activities: 2a. 4/5 MMT testing L sh flexion. 12/22/21 = 3+/5 MMT 2b. 4/5 MMT testing L sh ER. 12/22/21 = 4-/5 MMT 2c. 4+/5 MMT testing L sh extension. 12/22/21 = 4/5 MMT GOALS MET 0-100 degrees left active elbow flexion. *MET 05/22/21 0- 135 versus initial 0-90 Avg 15.0# of force w/ L dynamometer II strength testing. *MET 05/22/21; avg 20. 0# of force. 0-60 degrees left active sh flex. *MET 05/22/21; 0-80 vs initial 0-45 0-60 degrees left active sh abd. *MET 05/22/21; 0-75 vs initial 0-47 0-100 degrees active left shoulder flexion. *MET ; 0-110 vs initial 0-45 0-30 degrees active left shoulder ER. *MET 07/16/21; 0- 60 degrees vs initial 0-10 0-120 degrees active left shoulder flexion. *MET 10/30/21; 0-120 degrees vs initial 0-45 0-85 degrees active left shoulder abduction. *MET ; 0-85 degrees vs initial 0- 47 Snf Goals 1. Karolina will be modified independent with upper extremity home exercise program utilizing provided written and visual instructions from therapist. = 50% met 2. Karolina will present with improved functional abilities of the left hand: 2a. Karolina will obtain a score of 25.0 or less on the QuickDASH UE Outcome Measure. 12/22/21 = 50.0 score vs initial 54.55 2b. Based on self-report, Karolina will be able to feed self finger foods with the left hand with increased time (e.g. , pretzels, apple slices). = 25% met - Treatment 3 Descriptor UE coordination at wall. Figure 8. Sticky notes. Frontal plane. Shoulder abduction. 2 Descriptor In-hand manipulation. 2 balls in hand - around-the- world (both directions). Leap frog (prox --> distal attempted only). Standard pen. Inch worm both directions thumb web space/ palm down. 1 Descriptor UE coordination w/ objects. Eye-hand coordination. Tennis ball - eye hand coordination. Seated (single bounce to floor between feet and catch - throw and catch left handed). Exercises 4 Descriptor UE ROM. Upper trap stretch. Pec stretch. Manual/ROM by therapist L UE. Addressed pec tightness and distal bicep tightness at site of insertion. Chest stretch w/ sh ext bilateral. 3 Descriptor Supine. UE strengthening. Sh flex. 2# DB 3 x 10. Sh abd. 2# DB. 3 x 10. Sh ext. TB #3. 3 x 10. Sh hor abd. TB #3. DB. 3 x 10. PNF diagonal. 1# DB. CGA to min phys assist blocking to assist w/ motor planning. 3 x 10. Sh hor abd and ER. 2# DB. 3x10 . Blocking at elbow. ER. 2# DB. 3x10. Blocking provided by therapist. 2 Descriptor Supine. Elbow ext/skull crushers. 3# DB. 3 x 10. Blocking provided by therapist. Elbow flex/ext. 4# DB. 3 x 10. - Assessment Assessment of Improvement Continued w/ supine strengthening exercises; no changes to resistance w/ UE strengthening. Introduced motor coordination at wall in frontal plane and to the left of the body; increased difficulty w/ counter clockwise figure 8 horizontal wall slide versus clockwise. Mod difficulty w/ figure 8 to left of body; tendency to rotate upper trunk. Able to braid large and small ( theraband and yarn) with without UE support of distal left UE. Overall, good session . Karolina would likely continue benefit from outpatient OT to address L UE weakness, motor planning, awareness of L UE in space, and functional abilities to support Karolina's success with active participation in meaningful activities in a variety of environments. Home Exercise Program Recommended TT eye-hand coordination practice if chasing at floor level; recommended use of medium sized bouncy balls w/ in-hand manipulation exercises. Karolina denied questions. - Plan Therapy Recommendations Continue with Current Program, Advance per Rehabilitation Protocol
--- NOTE | 2022-02-02 15:30 | OT.OPPN ---
Current Diagnoses Cerebral infarction, unspecified (02/04/22) Other lack of coordination (02/04/22) Other symptoms and signs involving the musculoskeletal system (02/04/22) Weakness (02/04/22) OT Progress Note OT Outpatient Treatment Note - Adult Start: 03/26/21 15:29 Freq: Status: Active Protocol: Document 02/02/22 15:30 AMS (Rec: 02/04/22 11:43 AMS [id number]) OT Outpatient Adult Treatment Note Session Time Visit Start Time 09:30 Visit Stop Time 10:15 Total Visit Minutes 45 Visit Information Visit Number 09/07; visits => 20th visit KX modifier Plan of Care Dates 02/02/22 - 04/27/22 Insurance Information Medicare Setting Treatment Setting Outpatient Care Visit Type Note Type Progress Note General Information General Information Patient is a 66 year-old right hand dominant female referred to outpatient OT secondary to thalamic CVA resulting in left sided weakness. PMH: Significant for back pain; diabetes II; neuropathy; stroke/TIA; bilateral rotator cuff tears w/ PT as treatment. - Subjective Identification Type Name Identification Reconciled With Medical Record Observations I want to work on this elbow being straight per Karolina. 12/24/21 = MRI showed symptoms are d/t degeneration at C5, C6 , C7 w/ R worse than L. Patient/Caregiver Compliance with Home Good Exercise Program - Objective Objective Measurements Please refer to below for progress towards meeting established OT goals. Short Term Goals 1. Karolina will present with improved range of motion of the left upper extremity which will support her ability to engage in meaningful activities: 1a. 0-115 degrees active left shoulder abduction. 02/02/22 = GOAL UPGRADED (initial 0-47) 2. Karolina will present with improved strength of the left upper extremity which will support her ability to engage in meaningful activities: 2a. 4/5 MMT testing L sh flexion. 02/02/22 = 75% met; 4-/ 5 MMT 2b. 5/5 MMT testing L sh ER. 02/02/22 = GOAL UPGRADED 2c. 4+/5 MMT testing L sh extension. 02/02/22 = 4/5 MMT GOALS MET 0-100 degrees left active elbow flexion. *MET 05/22/21 0- 135 versus initial 0-90 Avg 15.0# of force w/ L dynamometer II strength testing. *MET 05/22/21; avg 20. 0# of force. 0-60 degrees left active sh flex. *MET 05/22/21; 0-80 vs initial 0-45 0-60 degrees left active sh abd. *MET 05/22/21; 0-75 vs initial 0-47 0-100 degrees active left shoulder flexion. *MET ; 0-110 vs initial 0-45 0-30 degrees active left shoulder ER. *MET 07/16/21; 0- 60 degrees vs initial 0-10 0-120 degrees active left shoulder flexion. *MET 10/30/21; 0-120 degrees vs initial 0-45 0-85 degrees active left shoulder abduction. *MET ; 0-85 degrees vs initial 0- 47 4/5 MMT testing L sh ER. *MET 02/02/22; 4/5 MMT 0-105 degrees active left shoulder abduction. *MET ; 0-105 Valve Mechanic Goals 1. Karolina will be modified independent with upper extremity home exercise program utilizing provided written and visual instructions from therapist. = 50% met 2. Karolina will present with improved functional abilities of the left hand: 2a. Karolina will obtain a score of 25.0 or less on the QuickDASH UE Outcome Measure. 12/22/21 = 50.0 score vs initial 54.55 2b. Based on self-report, Karolina will be able to feed self finger foods with the left hand with increased time (e.g. , pretzels, apple slices). = 25% met - Treatment 3 Descriptor UE coordination at wall. Figure 8. Sticky notes. Frontal plane. Shoulder abduction. 2 Descriptor In-hand manipulation. 2 balls in hand - around-the- world (both directions). Leap frog (prox --> distal attempted only). Standard pen. Inch worm both directions thumb web space/ palm down. 1 Descriptor UE coordination w/ objects. Eye-hand coordination. Tennis ball - eye hand coordination. Seated (single bounce to floor between feet and catch - throw and catch left handed). Exercises 4 Descriptor UE ROM. Upper trap stretch. Pec stretch. Manual/ROM by therapist L TIMO. Addressed pec tightness and distal bicep tightness at site of insertion. Chest stretch w/ sh ext bilateral. 3 Descriptor Supine. UE strengthening. Sh flex. 2# DB 3 x 10. Sh abd. 2# DB. 3 x 10. Sh ext. TB #3. 3 x 10. Sh hor abd. TB #3. DB. 3 x 10. PNF diagonal. 1# DB. CGA to min phys assist blocking to assist w/ motor planning. 3 x 10. Sh hor abd and ER. 2# DB. 3x10 . Blocking at elbow. ER. 2# DB. 3x10. Blocking provided by therapist. 2 Descriptor Supine. Elbow ext/skull crushers. 3# DB. 3 x 10. Blocking provided by therapist. Elbow flex/ext. 4# DB. 3 x 10. - Assessment Assessment of Improvement Karolina has made progress over the last certification period relative to left upper extremity strength, range of motion, and coordination. She has met and/or made good progress towards all established goals. Since pain of the right upper extremity has been reduced (with outside treatment), she has been able to increase focus incorporation and motor coordination of the left upper extremity. Despite progress, Karolina would likely continue benefit from outpatient OT to address L UE weakness, motor planning, awareness of L UE in space, and functional abilities to support Karolina's success with active participation in meaningful activities in a variety of environments. - Plan Therapy Recommendations Continue with Current Program, Advance per Rehabilitation Protocol Comment 12 weeks Comment 1-2 times per week Therapeutic Contents Active Range of Motion, Adaptive Equipment Education, Client Education,Cognitive Skills Development,Functional Activities,Home Exercise Program,Joint Protection, Education,Neurodevelopment Treatment,Neuromuscular Re- Education,Self-Care,Stretching /Flexibility Activities, Therapeutic Activities, Therapeutic Exercises, Modalities,Sensory Re- education Modalities As Needed,As Prescribed Types of Modalities E-Stim Additional Types of Modalities Ultrasound/Heat/Ice/Contrast/ Paraffin If you are in agreement with this Plan of Care, please return a signed and dated copy. I have reviewed this Plan of Care and certify that the skilled therapy services above are required to meet the patient?s needs. Physician Signature Date Printed Name and Credentials Clinical Instructor Signature Printed Name and Credentials
--- NOTE | 2022-02-04 15:30 | OT.OP.TRT ---
Visit Care Team Role Provider Type Xiomara Diego DO Attending Provider Physician Primary Care Provider Referring Provider Specialty: Family Practice Address: [address] [place] [address], [id number] Email: [email or web address] Occupational Therapy Treatment Note OT Outpatient Treatment Note - Adult Start: 03/26/21 15:29 Freq: Status: Active Protocol: Document 02/04/22 11:44 AMS (Rec: 02/04/22 11:50 AMS [id number]) OT Outpatient Adult Treatment Note Session Time Visit Start Time 09:30 Visit Stop Time 10:15 Total Visit Minutes 45 Visit Information Visit Number 10/08; visits => 20th visit KX modifier Plan of Care Dates 02/02/22 - 04/27/22 Insurance Information Medicare Setting Treatment Setting Outpatient Care Visit Type Note Type Treatment Note General Information General Information Patient is a 66 year-old right hand dominant female referred to outpatient OT secondary to thalamic CVA resulting in left sided weakness. PMH: Significant for back pain; diabetes II; neuropathy; stroke/TIA; bilateral rotator cuff tears w/ PT as treatment. - Subjective Identification Type Name Identification Reconciled With Medical Record Observations No new concerns were reported. 12/24/21 = MRI showed symptoms are d/t degeneration at C5, C6 , C7 w/ R worse than L. Patient/Caregiver Compliance with Home Good Exercise Program - Objective Objective Measurements Please refer to below for progress towards meeting established OT goals. Short Term Goals 1. Karolina will present with improved range of motion of the left upper extremity which will support her ability to engage in meaningful activities: 1a. 0-115 degrees active left shoulder abduction. 02/02/22 = GOAL UPGRADED (initial 0-47) 2. Karolina will present with improved strength of the left upper extremity which will support her ability to engage in meaningful activities: 2a. 4/5 MMT testing L sh flexion. 02/02/22 = 75% met; 4-/ 5 MMT 2b. 5/5 MMT testing L sh ER. 02/02/22 = GOAL UPGRADED 2c. 4+/5 MMT testing L sh extension. 02/02/22 = 4/5 MMT GOALS MET 0-100 degrees left active elbow flexion. *MET 05/22/21 0- 135 versus initial 0-90 Avg 15.0# of force w/ L dynamometer II strength testing. *MET 05/22/21; avg 20. 0# of force. 0-60 degrees left active sh flex. *MET 05/22/21; 0-80 vs initial 0-45 0-60 degrees left active sh abd. *MET 05/22/21; 0-75 vs initial 0-47 0-100 degrees active left shoulder flexion. *MET ; 0-110 vs initial 0-45 0-30 degrees active left shoulder ER. *MET 07/16/21; 0- 60 degrees vs initial 0-10 0-120 degrees active left shoulder flexion. *MET 10/30/21; 0-120 degrees vs initial 0-45 0-85 degrees active left shoulder abduction. *MET ; 0-85 degrees vs initial 0- 47 4/5 MMT testing L sh ER. *MET 02/02/22; 4/5 MMT 0-105 degrees active left shoulder abduction. *MET ; 0-105 Skilled Nursing Goals 1. Karolina will be modified independent with upper extremity home exercise program utilizing provided written and visual instructions from therapist. = 50% met 2. Karolina will present with improved functional abilities of the left hand: 2a. Karolina will obtain a score of 25.0 or less on the QuickDASH UE Outcome Measure. 12/22/21 = 50.0 score vs initial 54.55 2b. Based on self-report, Karolina will be able to feed self finger foods with the left hand with increased time (e.g. , pretzels, apple slices). = 25% met - Treatment 3 Descriptor UE coordination at wall. Figure 8. Sticky notes. Frontal plane. Shoulder abduction. 2 Descriptor In-hand manipulation. 2 balls in hand - around-the- world (both directions). Leap frog (prox --> distal attempted only). Standard pen. Inch worm both directions thumb web space/ palm down. 1 Descriptor UE coordination w/ objects. Eye-hand coordination. Tennis ball - eye hand coordination. Seated (single bounce to floor between feet and catch - throw and catch left handed). Exercises 4 Descriptor UE ROM. Upper trap stretch. Pec stretch. Manual/ROM by therapist L UE. Addressed pec tightness and distal bicep tightness at site of insertion. Chest stretch w/ sh ext bilateral. 3 Descriptor Supine. UE strengthening. Sh flex. 3# DB 3 x 10. Sh abd. 3# DB. 3 x 10. Sh ext. TB #3. 3 x 10. Sh hor abd. TB #3. DB. 3 x 10. PNF diagonal. 1# DB. CGA to min phys assist blocking to assist w/ motor planning. 3 x 10. Sh hor abd and ER. 3# DB. 3x10 . Blocking at elbow. ER. 3# DB. 3x10. Blocking provided by therapist. 2 Descriptor Supine. Elbow ext/skull crushers. 3# DB. 3 x 10. Blocking provided by therapist. Elbow flex/ext. 4# DB. 3 x 10. - Assessment Assessment of Improvement c/o sciatica. Patient to be re -starting outpatient PT in February. Patient will be out of town for vacation following week. Increased resistance w/ supine UE strengthening exercises. Focus on stretching of L UE while supine as well; completed bilateral ER w/ hands back of head --> followed by 'Y'. Increased ability to maintain L elbow extension w/ weight bearing/ weight shifting exercises while seated and w/ positioning of hands on mat. Introduced basic hand walks w/ weight shift; min difficulty but able to execute. Increased difficulty of motor planning exercises at wall; introduced weaving of hand in vertical and horizontal fashion. Overall, great session. Karolina would likely continue benefit from outpatient OT to address L UE weakness, motor planning, awareness of L UE in space, and functional abilities to support Karolina's success with active participation in meaningful activities in a variety of environments. - Plan Therapy Recommendations Continue with Current Program, Advance per Rehabilitation Protocol
--- NOTE | 2022-02-18 11:09 | OT.OP.TRT ---
Visit Care Team Role Provider Type Xiomara Diego DO Attending Provider Physician Primary Care Provider Referring Provider Specialty: Family Practice Address: [address] [place] [address], [id number] Email: [email or web address] Occupational Therapy Treatment Note OT Outpatient Treatment Note - Adult Start: 03/26/21 15:29 Freq: Status: Active Protocol: Document 02/18/22 11:00 AMS (Rec: 02/18/22 11:07 AMS [id number]) OT Outpatient Adult Treatment Note Session Time Visit Start Time 09:30 Visit Stop Time 10:15 Total Visit Minutes 45 Visit Information Visit Number 11/05; visits => 20th visit KX modifier Plan of Care Dates 02/02/22 - 04/27/22 Insurance Information Medicare Setting Treatment Setting Outpatient Care Visit Type Note Type Treatment Note General Information General Information Patient is a 66 year-old right hand dominant female referred to outpatient OT secondary to thalamic CVA resulting in left sided weakness. PMH: Significant for back pain; diabetes II; neuropathy; stroke/TIA; bilateral rotator cuff tears w/ PT as treatment. - Subjective Identification Type Name Identification Reconciled With Medical Record Observations No new concerns were reported. 12/24/21 = MRI showed symptoms are d/t degeneration at C5, C6 , C7 w/ R worse than L. Patient/Caregiver Compliance with Home Good Exercise Program - Objective Objective Measurements Please refer to below for progress towards meeting established OT goals. Short Term Goals 1. Karolina will present with improved range of motion of the left upper extremity which will support her ability to engage in meaningful activities: 1a. 0-115 degrees active left shoulder abduction. 02/02/22 = GOAL UPGRADED (initial 0-47) 2. Karolina will present with improved strength of the left upper extremity which will support her ability to engage in meaningful activities: 2a. 4/5 MMT testing L sh flexion. 02/02/22 = 75% met; 4-/ 5 MMT 2b. 5/5 MMT testing L sh ER. 02/02/22 = GOAL UPGRADED 2c. 4+/5 MMT testing L sh extension. 02/02/22 = 4/5 MMT GOALS MET 0-100 degrees left active elbow flexion. *MET 05/22/21 0- 135 versus initial 0-90 Avg 15.0# of force w/ L dynamometer II strength testing. *MET 05/22/21; avg 20. 0# of force. 0-60 degrees left active sh flex. *MET 05/22/21; 0-80 vs initial 0-45 0-60 degrees left active sh abd. *MET 05/22/21; 0-75 vs initial 0-47 0-100 degrees active left shoulder flexion. *MET ; 0-110 vs initial 0-45 0-30 degrees active left shoulder ER. *MET 07/16/21; 0- 60 degrees vs initial 0-10 0-120 degrees active left shoulder flexion. *MET 10/30/21; 0-120 degrees vs initial 0-45 0-85 degrees active left shoulder abduction. *MET ; 0-85 degrees vs initial 0- 47 4/5 MMT testing L sh ER. *MET 02/02/22; 4/5 MMT 0-105 degrees active left shoulder abduction. *MET ; 0-105 Alf Goals 1. Karolina will be modified independent with upper extremity home exercise program utilizing provided written and visual instructions from therapist. = 50% met 2. Karolina will present with improved functional abilities of the left hand: 2a. Karolina will obtain a score of 25.0 or less on the QuickDASH UE Outcome Measure. 12/22/21 = 50.0 score vs initial 54.55 2b. Based on self-report, Karolina will be able to feed self finger foods with the left hand with increased time (e.g. , pretzels, apple slices). = 25% met - Treatment 3 Descriptor UE coordination at wall. Sticky notes. Weaving above eye level horizontally and vertically. Diagonals. 2 Descriptor In-hand manipulation. 2 balls in hand - around-the- world (both directions). Leap frog (prox --> distal attempted only). Standard pen. Inch worm both directions thumb web space/ palm down. 1 Descriptor UE coordination w/ objects. Eye-hand coordination. Tennis ball - eye hand coordination. Seated (single bounce to floor between feet and catch; single bounce and catch at TT) . Bimanual. Kayak - paddling. Vertical alt positioning of cane on mat. Exercises 4 Descriptor UE ROM. Upper trap stretch. Pec stretch. Manual/ROM by therapist L UE. Addressed pec tightness and distal bicep tightness at site of insertion. Chest stretch w/ sh ext bilateral. 3 Descriptor Supine. UE strengthening. Sh flex. 3# DB 3 x 10. Sh abd. 3# DB. 3 x 10. Sh ext. TB #4. 3 x 10. Sh hor abd. TB #4. DB. 3 x 10. PNF diagonal. 1# DB. CGA to min phys assist blocking to assist w/ motor planning. 3 x 10. Sh hor abd and ER. 3# DB. 3x10 . Blocking at elbow. ER. 3# DB. 3x10. Blocking provided by therapist. 1 Descriptor Weight bearing/weight shifting . TT. Mat. Wall. - Assessment Assessment of Improvement Patient to be re-starting outpatient PT in February. Patient will be going out of town to visit family. Increased resistance w/ sh hor abd and sh extension exercises while supine with use of theraband. Decreasing rest breaks and increasing repetitions w/ UE motor coordination exercises at wall/above eye level/ shoulder height suggesting increasing strength. Introduced kayaking activities w/ use of cane; mild to moderate coordination difficulties relative to L UE; decreased size of movements of the L UE compared to R. Increased ability to maintain L elbow extension w/ weight bearing/weight shifting exercises while seated and w/ positioning of hands on mat. Will need to continue w/ weight bearing/weight shifting . Overall, katie nunez. Karolina would likely continue benefit from outpatient OT to address L UE weakness, motor planning, awareness of L UE in space, and functional abilities to support Karolina's success with active participation in meaningful activities in a variety of environments. - Plan Therapy Recommendations Continue with Current Program, Advance per Rehabilitation Protocol
--- NOTE | 2022-05-06 11:11 | OT.OP.DC ---
Visit Care Team Role Provider Type Xiomara Diego DO Attending Provider Physician Primary Care Provider Referring Provider Address: [address] [place] [address], [facility]– [place], [place], [address] Email: [email or web address] Outpatient OT Outpatient Adult Evaluation Start: 03/26/21 15:29 Freq: Status: Active Protocol: Document 03/26/21 15:31 AMS (Rec: 03/26/21 15:58 AMS [id number]) General Information Session Time Visit Start Time 12:30 Visit Stop Time 13:23 Total Visit Minutes 53 Visit Information Visit Number 09/07; 09/16 visits => 20th visit KX modifier Plan of Care Dates 03/26/21-06/18/21 Insurance Information Medicare Setting Treatment Setting Outpatient Care Visit Type Note Type Initial Evaluation Referral Referring Physician Xiomara Diego MD Reason for Referral CVA Goals Treatment Treatment Supine exercises. Functional weight bearing. Instructed in finger tapping w/ wrist in functional position. Short Term Goals Short Term Goals 1. 0-100 degrees left active elbow flexion. 2. Avg of 15.0# of force with L mosaic tile maker dynamometer II strength testing. 3. 0-60 degrees left active shoulder flexion. 4. 0-60 degrees left active shoulder abduction. Detention Goals Warp Trucker Goals 1. Karolina will be modified independent with upper extremity home exercise program utilizing provided written and visual instructions from therapist. 2. Karolina will present with improved functional abilities of the left hand; this will be evidenced by Karolina obtaining a score of 25.0 or less on the QuickDASH UE Outcome Measure. Assessment/Plan Assessment Treatment Assessment Patient is a 65 year-old right hand dominant female referred to outpatient OT secondary to thalamic CVA resulting in left sided weakness. PMH: Significant for back pain; diabetes II; neuropathy; stroke/TIA; bilateral rotator cuff tears w/ PT as treatment. Patient had intensive inpatient rehab at [facility] and received HH for 6 weeks. She is using a music glove and home e-stim unit for left upper extremity targeting digit/wrist extension and elbow flex/extension. No h/o brace/sling for L UE. Patient is currently receiving outpatient PT here at [facility]. Patient Goals: Regain independence; increase strength and coordination of the left upper extremity. Evaluation Findings: Patient reportedly resides with spouse and 14 y.o son and receives some assistance w/ UB dressing . No pain was indicated on Pain Assessment Grid relative to distal UEs; however, verbal report of L shoulder pain/ discomfort. QuickDASH UE Outcome Measure Score = 54.55. Patient was ambulated to treatment session utilizing SPC. h/o left sided neglect which has improved per patient . Impaired motor planning of the left upper extremity; able to oppose thumb to 4th digit w/ left hand w/ increased concentration. Able to oppose to all digits of dominant, non -affected right hand. (+) mild edema of L UE. Intrinsic tightness of L hand. 0-45 degrees L sh flex; 0-132 degrees R sh flex; 0-35 degrees L sh ext; 0-60 degrees R sh ext; 0-47 degrees L sh abd; 0-135 degrees R sh abd; 0 -10 degrees L sh ER; 0-65 degrees R sh ER; 0- 90 degrees L elbow flex; 0-140 degrees R elbow flex/ext; WFL bilateral forearm supination and pronation; 0-50 degrees L wrist ext; 0-55 degrees R wrist ext; 0-40 degrees L wrist flex; 0-55 degrees R wrist flex. Bilateral wrist RD /UD WFL. Decreased ROM of the left upper extremity. L UE weakness, including mosaic tile maker strength. Decreased L scapular mobility. Proximal compensatory strategies w/ L UE movement, tendency towards L sh elevation. Karolina would likely benefit from outpatient OT to address L UE weakness, motor planning, awareness of L UE in space, and functional abilities to support Karolina's success with active participation in meaningful activities in a variety of environments. Plan Comment 12 weeks Comment 1-2 times per week Therapeutic Contents Active Range of Motion, Adaptive Equipment Education, Client Education,Cognitive Skills Development,Functional Activities,Home Exercise Program,Joint Protection, Manual Therapy,Education, Neurodevelopment Treatment, Neuromuscular Re-Education, Self-Care,Stretching/ Flexibility Activities, Therapeutic Activities, Therapeutic Exercises, Modalities Modalities As Needed,As Prescribed Types of Modalities E-Stim Additional Types of Modalities Heat/Cold Sensory Assessment Sensory Profile2 Functional Wrist/Hand Scan Hand Side OT Outpatient Muscle Testing Start: 03/26/21 15:29 Freq: Status: Active Protocol: Document 02/02/22 15:30 AMS (Rec: 02/04/22 11:43 AMS [id number]) Shoulder Strength Shoulder Manual Muscle Testing Left Flexion 4- Good- Extension 4 Good Abduction (C5) 4- Good- Adduction 4 Good External Rotation 4 Good Internal Rotation 4 Good Horizontal Abduction 3 Fair Horizontal Adduction 3+ Fair+ Comments 02/02/22 12/22/21: Sh MMT Strength testing L sh flex 3+/5; L sh ext 4/5; L sh abd 3/5; L sh add 4/5; 4- /5 L sh ER; 4/5 L sh IR; 3/5 L sh hor abd; 3+ L sh add Right Flexion 5 Normal Extension 5 Normal Adduction 5 Normal Internal Rotation 5 Normal Horizontal Adduction 5 Normal Comments 10/30/21: Sh MMT Strength Testing 5- MMT R Sh Abd 5- MMT R Sh ER 5- MMT R Sh Hor Abd Mesh Worker/Hand Strength Mesh Worker/Hand Strength Left Mesh Worker Dynamometer II 20.0 Lateral Pinch Strengh (lbs) 5.5 Comments Dynamometer Mesh Worker II Strength re-tested 05/22/21 03/26/21= Left Dynamometer Mesh Worker II = 10.0# avg; Left Lateral Pinch = 5.5.# Right Mesh Worker Dynamometer II 37.0 Lateral Pinch Strengh (lbs) 11.0 OT Outpatient Treatment Note - Adult Start: 03/26/21 15:29 Freq: Status: Active Protocol: Document 05/06/22 11:09 [facility] (Rec: 05/06/22 11:11 [facility] [id number]) OT Outpatient Adult Treatment Note Visit Information Visit Number 11/05; visits => 20th visit KX modifier Plan of Care Dates 02/02/22 - 04/27/22 Insurance Information Medicare Setting Treatment Setting Outpatient Care Visit Type Note Type Discharge Summary - Subjective Observations Karolina has not been seen in the outpatient setting by OT since 02/18 and her POC 04/27 . Thus, recommend d/c from outpatient OT at this time. Therapist to follow-up as appropriate. - Objective Objective Measurements Please refer to below for progress towards meeting established OT goals. Short Term Goals D/C all goals 05/06/22 1. Karolina will present with improved range of motion of the left upper extremity which will support her ability to engage in meaningful activities: 1a. 0-115 degrees active left shoulder abduction. 02/02/22 = GOAL UPGRADED (initial 0-47) 2. Karolina will present with improved strength of the left upper extremity which will support her ability to engage in meaningful activities: 2a. 4/5 MMT testing L sh flexion. 02/02/22 = 75% met; 4-/ 5 MMT 2b. 5/5 MMT testing L sh ER. 02/02/22 = GOAL UPGRADED 2c. 4+/5 MMT testing L sh extension. 02/02/22 = 4/5 MMT GOALS MET 0-100 degrees left active elbow flexion. *MET 05/22/21 0- 135 versus initial 0-90 Avg 15.0# of force w/ L dynamometer II strength testing. *MET 05/22/21; avg 20. 0# of force. 0-60 degrees left active sh flex. *MET 05/22/21; 0-80 vs initial 0-45 0-60 degrees left active sh abd. *MET 05/22/21; 0-75 vs initial 0-47 0-100 degrees active left shoulder flexion. *MET ; 0-110 vs initial 0-45 0-30 degrees active left shoulder ER. *MET 07/16/21; 0- 60 degrees vs initial 0-10 0-120 degrees active left shoulder flexion. *MET 10/30/21; 0-120 degrees vs initial 0-45 0-85 degrees active left shoulder abduction. *MET ; 0-85 degrees vs initial 0- 47 4/5 MMT testing L sh ER. *MET 02/02/22; 4/5 MMT 0-105 degrees active left shoulder abduction. *MET ; 0-105 Detention Goals D/C all goals 05/06/22 1. Karolina will be modified independent with upper extremity home exercise program utilizing provided written and visual instructions from therapist. = 50% met 2. Karolina will present with improved functional abilities of the left hand: 2a. Karolina will obtain a score of 25.0 or less on the QuickDASH UE Outcome Measure. 12/22/21 = 50.0 score vs initial 54.55 2b. Based on self-report, Karolina will be able to feed self finger foods with the left hand with increased time (e.g. , pretzels, apple slices). = 25% met - - Assessment Assessment of Improvement Karolina has not been seen in the outpatient setting by OT since 02/18 and her POC 04/27 . Thus, recommend d/c from outpatient OT at this time. Therapist to re-evaluate as deemed appropriate by PCP. - Plan Therapy Recommendations Discharge from Occupational Therapy
== END 2022-05-07 09:50 ==
LOC: OT 09:30
PROVIDERS: PCP Family Medicine; Referring Provider Family Medicine; Visit Provider Family Medicine
DX: I63.9 Cerebral infarction, unspecified (principal); R29.898 Other symptoms and signs involving the musculoskeletal system; R27.8 Other lack of coordination; R53.1 Weakness
CPT/HCPCS: 97110; 97112; 97165; 97530

== ENCOUNTER 2022-07-07 15:27 | Emergency (ER) | payer MEDICARE, SELFPAY ==
[2020-12-16 06:20] VITALS: BMI 25.4
[2022-07-07] VITALS (32 sets, daily range): BP systolic 125–180; BP diastolic 55–95; PULSE 79–99; RESP 12–25; TEMP 34.2–37; O2SAT 92–100
--- NOTE | 2022-07-07 15:30 | DI.RAD.S_ITS ---
PROCEDURE: XR CHEST 1V INDICATIONS: found down TECHNIQUE: One view of the chest was acquired. COMPARISON: [facility], CR, XR CHEST 1V, 07/02/2020, 20:51. FINDINGS: Surgical changes and devices: None. Lungs and pleura: Lungs are clear. No pleural effusions or pneumothorax. Mediastinum: Mediastinal contours appear normal. Heart size is normal. Bones and chest wall: No suspicious bony lesions. Overlying soft tissues appear unremarkable. IMPRESSION: No acute cardiopulmonary pathology. Dictated by: Andry Bella M.D. on 07/07/2022 at 16:30 Approved by: Andry Bella M.D. on 07/07/2022 at 16:30
--- NOTE | 2022-07-07 15:30 | DI.CT.S_ITS ---
PROCEDURE: CT HEAD/BRAIN WO CON INDICATIONS: found down TECHNIQUE: Noncontrast 4.5 mm thick angled axial sections acquired from the foramen magnum to the vertex, with coronal and sagittal reformats. For radiation dose reduction, the following was used: automated exposure control, adjustment of mA and/or kV according to patient size. COMPARISON: [facility], MR, MR STROKE, 06/02/2021, 9:16. FINDINGS: There is a right temporal and frontoparietal convexity subdural hematoma with multifocal extension into the subarachnoid space. Hypoattenuating changes of the right anterior temporal lobe suggest underlying parenchymal contusion. The subdural hematoma demonstrates mixed density suggesting that it could represent an acute on chronic subdural hematoma. There is minimal 4 mm right left midline shift. Mild effacement of the right temporal horn. Basilar cisterns patent. Left frontoparietal cephalohematoma. No acute orbital abnormality. Paranasal sinuses and mastoid air cells are predominantly clear. IMPRESSION: Right cerebral convexity subdural hematoma with associated multifocal subarachnoid hemorrhage. Appearance of vasogenic edema in the right temporal lobe suggestive of underlying cortical contusions, although this is not entirely definitive and MRI with IV contrast could be considered to further evaluate and help exclude underlying mass or infarct. Dictated by: Link Peralta M.D. on 07/07/2022 at 15:57 Approved by: Link Peralta M.D. on 07/07/2022 at 16:07
--- NOTE | 2022-07-07 15:30 | DI.CT.S_ITS ---
PROCEDURE: CT CERVICAL SPINE WO CON INDICATIONS: found down TECHNIQUE: Noncontrast 3 mm thick sections acquired from the skull base to the T4 level. Sagittal and coronal reformats were then constructed. For radiation dose reduction, the following was used: automated exposure control, adjustment of mA and/or kV according to patient size. COMPARISON: [facility], MR, MR CERVICAL SPINE WO CON, 12/22/2021, 15:28. FINDINGS: Image quality: Excellent. Bones: No fractures or dislocations. Visualized superior ribs are intact. Soft tissues: Prevertebral soft tissues are normal in thickness. No paravertebral hematomas. No apical pneumothoraces. IMPRESSION: No acute finding. Dictated by: Link Peralta M.D. on 07/07/2022 at 16:08 Approved by: Link Peralta M.D. on 07/07/2022 at 16:09
--- NOTE | 2022-07-07 15:31 | ED_ITS ---
HPI - General Adult General Chief complaint: Unresponsive Stated complaint: unresponsive Time Seen by Provider: 07/07/22 15:27 Source: family and EMS Mode of arrival: EMS Limitations: altered mental status History of Present Illness HPI narrative: Patient is a 66-year-old female. Is an insulin-dependent diabetic. Prior history of a stroke with left-sided deficits however is ambulatory baseline with a brace on her left leg no other assist devices. Was found down today by her son. Unsure as to how long she was down. She was outside. Potentially down for 4 hours. She was supposed to go roll picker her son and she never arrived so the son walked home and found her outside. Apparently she was outside feeding her chickens and she was found on the ground on the sidewalk.. Was cold and minimally responsive by EMS on arrival. Was maintaining her airway. IVs were started. No medications administered. Is transferred to the emergency department. Here in the ER patient did follow commands. Would not answer questions. Maintaining airway. Related Data Home Medications Medication Instructions Recorded Confirmed aspirin 81 mg tablet,delayed 81 mg PO DAILY 03/08/18 12/16/20 release Previous Rx's Medication Instructions Recorded pen needle, diabetic 32 gauge x See Rx Instructions .Route 02/22/20 (BD Althea 2nd Gen Pen Needle) .COMPLEX #600 ea insulin glargine 100 unit/mL (3 30 unit (0.3 mL) SUBCUT DAILY #30 08/05/21 mL) subcutaneous pen (Basaglar mL KwikPen U-100 Insulin) atorvastatin 40 mg tablet 40 mg PO DAILY #90 tabs 10/08/21 sertraline 50 mg tablet 50 mg PO DAILY #90 tabs 10/08/21 cephalexin 500 mg capsule 500 mg PO TID UTI #15 caps 12/10/21 lisinopril 5 mg tablet 5 mg PO DAILY #90 tabs 01/07/22 metformin 1,000 mg tablet See Rx Instructions .Route 03/22/22 .COMPLEX #180 tabs metoprolol succinate 25 mg See Rx Instructions .Route 03/22/22 tablet,extended release 24 hr .COMPLEX #90 tabs Allergies Allergy/AdvReac Type Severity Reaction Status Date / Time No Known Drug Allergies Allergy Verified 07/02/20 09:02 Review of Systems Review of Systems Narrative: Limited secondary to her ability to answer questions. Please see HPI. ROS Unobtainable: All systems reviewed & are unremarkable except as noted in HPI and below Patient History Medical History Diabetes mellitus Essential hypertension History of ventricular tachycardia Hyperlipidemia Type 2 diabetes mellitus without complication (05/21/16) Surgical History Status post delivery (~1983) Status post delivery (~1985) Status post delivery (~1987) Status post cholecystectomy (~2013) Family History Mother Hypertension Father Congestive heart failure Social History marital status: household members: significant other occupational status: employed ([employer]) Smoking Status: Never smoker alcohol intake: current substance use type: does not use Smoking Status: Never smoker alcohol intake frequency: 0-2 drinks per day Substance Use Type: does not use Exam Initial Vital Signs Initial Vital Signs: Vital Signs Temperature 93.6 F L 07/07/22 15:27 Pulse Rate 85 07/07/22 15:27 Respiratory Rate 12 07/07/22 15:27 Blood Pressure 159/68 H 07/07/22 15:27 Pulse Oximetry 99 07/07/22 15:27 Oxygen Delivery Method 07/07/22 15:27 Const General: in distress and No combative HENMT Head: abrasion (Left scalp) and contusion (Left scalp) Face and sinus: normal facial exam Mouth: oral mucosae normal Eyes Pupils: PERRL Chest Chest: No crepitus and No tenderness Resp Effort & Inspection: normal respiratory effort Auscultation: clear to auscultation bilaterally Cardio Rate: regular rate Rhythm: regular rhythm GI Inspection: non-distended Palpation: No firm and No guarding External Female Exam: normal external appearance Back/Spine/Pelvis Other: Was placed in cervical collar. The thoracic and lumbar spine unremarkable. Skin Other: Abrasion left side of scalp Neuro Other: Nonverbal. She does open her eyes to command. Does move all 4 extremities equally. Extrem Other: No gross deformities. No apparent discomfort with movement of upper and lower extremities. Pelvis is stable. Psych Appearance: grossly normal Scores GCS Alpine coma scale eye opening: To sound Alpine coma scale verbal response: Words Zane coma scale motor response: Obey commands Alpine coma scale total score: 12 Course Orders Ordered: ED Orders 07/07/22 15:29 Blood Culture Stat 07/07/22 15:30 CT cervical spine wo con Stat CT head/brain wo con Stat XR chest 1V Stat 07/07/22 15:35 COVID19 -Nasal RAPID/Pre-Proc Stat Complete Blood Count AUTO DIFF Stat Comprehensive Metabolic Panel Stat Ethanol (ETOH) Stat Lactate (Lactic Acid) Stat Lipase Stat Magnesium Stat Partial Thromboplastin Time Stat Procalcitonin Stat Prolactin Stat Prothrombin Time INR Stat Troponin & CK Cardiac Panel Stat 07/07/22 15:40 Urinalysis and Microscopic Stat Urine Culture Stat 07/07/22 17:20 Lactate (Lactic Acid) Stat Sodium Chloride (Normal Saline 0.9%) 1,000 mls @ 125 mls/hr IV CONT JOSE DAVID Last Infusion: 07/07/22 17:04 Dose: 0 mls/hr Documented By: Admin: 07/07/22 16:07 Dose: 125 mls/hr Documented By: CTS Nicardipine HCl 25 mg/ Sodium (Chloride) 250 mls @ 50 mls/hr IV TITRATE JOSE DAVID; Protocol Last Titration: 07/07/22 16:24 Dose: 0 mg/hr, 0 mls/hr Documented By: Titration: 07/07/22 16:11 Dose: 7.5 mg/hr, 75 mls/hr Documented By: Admin: 07/07/22 16:07 Dose: 5 mg/hr, 50 mls/hr Documented By: CTS Discontinued Medications Levetiracetam 1,000 mg/ Sodium (Chloride) 110 mls @ 440 mls/hr IV NOW ONE Stop: 07/07/22 17:14 Last Admin: 07/07/22 16:59 Dose: 440 mls/hr Documented By: CTS Morphine Sulfate (Morphine 2 Mg/Ml Inj) 2 mg IV NOW ONE Stop: 07/07/22 17:13 Ondansetron HCl (Ondansetron 4 Mg/2 Ml Inj) 4 mg IV NOW ONE Stop: 07/07/22 16:53 Last Admin: 07/07/22 17:00 Dose: 4 mg Documented By: CTS Vital Signs Vital signs: Vital Signs - 8 hr 07/07/22 15:27 07/07/22 15:28 07/07/22 15:30 Temperature 93.6 F L Pulse Rate 85 86 Respiratory Rate 12 25 H Blood Pressure 159/68 H 159/68 H Pulse Oximetry 99 100 Oxygen Delivery Method Room Air Oxygen Flow Rate 07/07/22 15:30 07/07/22 15:35 07/07/22 15:35 Temperature 93.6 F L 95.0 F L Pulse Rate 85 82 Respiratory Rate 21 20 Blood Pressure 151/59 H Pulse Oximetry 99 100 Oxygen Delivery Method Oxygen Flow Rate 07/07/22 15:40 07/07/22 15:40 07/07/22 15:56 Temperature 95.9 F L Pulse Rate 82 Respiratory Rate 20 Blood Pressure 135/95 H 173/72 H Pulse Oximetry 98 Oxygen Delivery Method Room Air Oxygen Flow Rate 07/07/22 15:56 07/07/22 16:00 07/07/22 16:00 Temperature 96.8 F L 97.0 F L Pulse Rate 80 79 Respiratory Rate 21 19 Blood Pressure 159/72 H Pulse Oximetry 99 100 Oxygen Delivery Method Room Air Oxygen Flow Rate 07/07/22 16:03 07/07/22 16:03 07/07/22 16:05 Temperature 97.0 F L Pulse Rate 80 Respiratory Rate 22 Blood Pressure 161/64 H 151/67 H Pulse Oximetry 100 Oxygen Delivery Method Oxygen Flow Rate 07/07/22 16:05 07/07/22 16:10 07/07/22 16:10 Temperature 97.2 F L 97.2 F L Pulse Rate 80 81 Respiratory Rate 20 20 Blood Pressure 151/69 H Pulse Oximetry 100 98 Oxygen Delivery Method Oxygen Flow Rate 07/07/22 16:15 07/07/22 16:15 07/07/22 16:20 Temperature 97.3 F L Pulse Rate 83 Respiratory Rate 20 Blood Pressure 135/60 128/55 L Pulse Oximetry 97 Oxygen Delivery Method Nasal Cannula Oxygen Flow Rate 2 07/07/22 16:20 07/07/22 16:25 07/07/22 16:25 Temperature 97.5 F L 97.5 F L Pulse Rate 83 83 Respiratory Rate 21 21 Blood Pressure 125/63 Pulse Oximetry 98 99 Oxygen Delivery Method Oxygen Flow Rate 07/07/22 16:30 07/07/22 16:30 07/07/22 16:35 Temperature 97.5 F L Pulse Rate 83 Respiratory Rate 21 Blood Pressure 140/68 136/65 Pulse Oximetry 97 Oxygen Delivery Method Oxygen Flow Rate 07/07/22 16:35 07/07/22 16:40 07/07/22 16:40 Temperature 97.7 F 97.7 F Pulse Rate 83 83 Respiratory Rate 20 21 Blood Pressure 136/66 Pulse Oximetry 100 100 Oxygen Delivery Method Oxygen Flow Rate 07/07/22 16:45 07/07/22 16:45 07/07/22 16:50 Temperature 97.9 F Pulse Rate 99 H Respiratory Rate 21 Blood Pressure 130/69 137/74 Pulse Oximetry 99 Oxygen Delivery Method Oxygen Flow Rate 07/07/22 16:50 07/07/22 16:55 07/07/22 16:55 Temperature 97.9 F 98.1 F Pulse Rate 83 98 H Respiratory Rate 19 23 Blood Pressure 180/88 H Pulse Oximetry 97 92 Oxygen Delivery Method Room Air Oxygen Flow Rate 0 07/07/22 17:00 07/07/22 17:00 07/07/22 17:05 Temperature 98.1 F Pulse Rate 85 Respiratory Rate 22 Blood Pressure 150/72 H 142/70 H Pulse Oximetry 97 Oxygen Delivery Method Oxygen Flow Rate 07/07/22 17:05 07/07/22 17:10 07/07/22 17:10 Temperature 98.1 F 98.2 F Pulse Rate 84 83 Respiratory Rate 23 22 Blood Pressure 139/73 Pulse Oximetry 98 97 Oxygen Delivery Method Oxygen Flow Rate 07/07/22 17:15 07/07/22 17:15 07/07/22 17:20 Temperature 98.2 F Pulse Rate 82 Respiratory Rate 22 Blood Pressure 134/73 136/73 Pulse Oximetry 97 Oxygen Delivery Method Oxygen Flow Rate 07/07/22 17:20 07/07/22 17:25 07/07/22 17:25 Temperature 98.2 F 98.4 F Pulse Rate 82 82 Respiratory Rate 22 20 Blood Pressure 141/73 H Pulse Oximetry 97 97 Oxygen Delivery Method Oxygen Flow Rate 07/07/22 17:30 07/07/22 17:30 Temperature 98.4 F Pulse Rate 81 Respiratory Rate 22 Blood Pressure 137/70 Pulse Oximetry 97 Oxygen Delivery Method Oxygen Flow Rate Medical Decision Making Lab Data Lab results reviewed: Yes I reviewed the patient's lab results. Result diagrams: 07/07/22 15:35 07/07/22 15:35 Labs: Lab Results 07/07/22 07/07/22 07/07/22 Range/Units 15:35 15:35 15:35 WBC 16.4 H (4.5-11.0) X10^3/uL RBC 4.48 (4.0-5.2) X10^6/uL Hgb 13.2 (12.0-16.0) g/dL Hct 38.0 (36-46) % MCV 84.7 (80-100) fL MCH 29.5 (26-34) PG MCHC 34.8 (30-36) % RDW 13.1 (11.6-14.8) % Plt Count 298 (150-400) X10^3/uL Neut % (Auto) 80.7 H (50-75) % Lymph % (Auto) 15.2 L (25-40) % [place] % (Auto) 3.5 (3-14) % Eos % (Auto) 0.4 L (2-4) % Baso % (Auto) 0.2 (0-2) % Neut # (Auto) 92607 H (2522-5174) /uL Lymph # (Auto) 2500 (8840-0277) /uL [place] # (Auto) 600 (0-900) /uL Eos # (Auto) 100 (0-450) /uL Baso # (Auto) 0 (0-100) /uL PT 12.5 (10.1-12.7) SECONDS INR 1.1 (0.9-1.3) APTT 30 (26-36) SECONDS Sodium 142 (137-145) mmol/L Potassium 3.8 (3.4-5.1) mmol/L Chloride 102 (98-107) mmol/L Carbon Dioxide 24 (22-32) mmol/L BUN 12 (7-17) mg/dL Creatinine 0.54 (0.52-1.04) mg/dL Estimated GFR > 60 (>60) mL/min BUN/Creatinine Ratio 22.2 H (6-22) Glucose 146 H (80-110) mg/dL Lactate (0.7-2.1) mmol/L Calcium 8.8 (8.4-10.2) mg/dL Magnesium 1.1 L (1.6-2.3) mg/dL Total Bilirubin 0.4 (0.2-1.3) mg/dL AST 35 (14-36) IU/L ALT 21 (<35) IU/L Alkaline Phosphatase 62 (38-126) U/L Total Creatine Kinase 82 (30-135) U/L CK-MB (CK-2) TNP CK-MB (CK-2) Rel Index TNP Troponin I < 0.012 (0.01-0.034) ng/mL Total Protein 7.1 (6.3-8.2) g/dL Albumin 4.3 (3.5-5.0) g/dL Globulin 2.8 (1.7-4.1) g/dL Albumin/Globulin Ratio 1.5 (1.0-2.8) Lipase 465 H (23-300) U/L Procalcitonin < 0.03 (<0.5) ng/mL Prolactin 52.3 H (3.0-18.6) ng/mL Urine Color Urine Appearance Urine pH (4.5-8.0) Ur Specific [place] (1.000-1.035) Urine Protein (Negative) Urine Glucose (UA) (Negative) g/dL Urine Ketones (NEGATIVE) Urine Occult Blood (Negative) Urine Nitrate (Negative) Urine Bilirubin (NEGATIVE) Urine Urobilinogen (0.2) E.U./dL Ur Leukocyte Esterase (NEGATIVE) Urine RBC (0-5/HPF) Urine WBC (0-5/HPF) Urine Bacteria (None) Ur Culture Indicated? Ethyl Alcohol < 10 ( - 10) mg/dL SARS-CoV-2 (PCR) (Negative) 07/07/22 07/07/22 07/07/22 Range/Units 15:35 15:35 15:40 WBC (4.5-11.0) X10^3/uL RBC (4.0-5.2) X10^6/uL Hgb (12.0-16.0) g/dL Hct (36-46) % MCV (80-100) fL MCH (26-34) PG MCHC (30-36) % RDW (11.6-14.8) % Plt Count (150-400) X10^3/uL Neut % (Auto) (50-75) % Lymph % (Auto) (25-40) % [place] % (Auto) (3-14) % Eos % (Auto) (2-4) % Baso % (Auto) (0-2) % Neut # (Auto) (6647-1454) /uL Lymph # (Auto) (2285-3260) /uL [place] # (Auto) (0-900) /uL Eos # (Auto) (0-450) /uL Baso # (Auto) (0-100) /uL PT (10.1-12.7) SECONDS INR (0.9-1.3) APTT (26-36) SECONDS Sodium (137-145) mmol/L Potassium (3.4-5.1) mmol/L Chloride (98-107) mmol/L Carbon Dioxide (22-32) mmol/L BUN (7-17) mg/dL Creatinine (0.52-1.04) mg/dL Estimated GFR (>60) mL/min BUN/Creatinine Ratio (6-22) Glucose (80-110) mg/dL Lactate 5.2 H* (0.7-2.1) mmol/L Calcium (8.4-10.2) mg/dL Magnesium (1.6-2.3) mg/dL Total Bilirubin (0.2-1.3) mg/dL AST (14-36) IU/L ALT (<35) IU/L Alkaline Phosphatase (38-126) U/L Total Creatine Kinase (30-135) U/L CK-MB (CK-2) CK-MB (CK-2) Rel Index Troponin I (0.01-0.034) ng/mL Total Protein (6.3-8.2) g/dL Albumin (3.5-5.0) g/dL Globulin (1.7-4.1) g/dL Albumin/Globulin Ratio (1.0-2.8) Lipase (23-300) U/L Procalcitonin (<0.5) ng/mL Prolactin (3.0-18.6) ng/mL Urine Color Yellow Urine Appearance Clear Urine pH 5.0 (4.5-8.0) Ur Specific [place] 1.025 (1.000-1.035) Urine Protein Negative (Negative) Urine Glucose (UA) Negative (Negative) g/dL Urine Ketones Negative (NEGATIVE) Urine Occult Blood Negative (Negative) Urine Nitrate Negative (Negative) Urine Bilirubin Negative (NEGATIVE) Urine Urobilinogen 0.2 (0.2) E.U./dL Ur Leukocyte Esterase Trace H (NEGATIVE) Urine RBC None seen (0-5/HPF) Urine WBC 0-1/hpf (0-5/HPF) Urine Bacteria None seen (None) Ur Culture Indicated? Specimen cultured Ethyl Alcohol ( - 10) mg/dL SARS-CoV-2 (PCR) Negative (Negative) Point of Care Testing Glucose POC 150 Point of care testing: Point of Care Testing Glucose POC [address] - cervical spine: Radiologist's Impression: [place] [address] CT Scan Report Signed Patient: Driss Tom MR#: [id number] : 1955 Acct:[id number] Age/Sex: 66 / F Date of Service: 07/07/22 Loc: ED Accession Number: [id number] ?? Procedure: CT cervical spine wo con Ordering Provider: Fred Huizar D.O. PROCEDURE:? CT CERVICAL SPINE WO CON ? INDICATIONS:? found down ? TECHNIQUE:? Noncontrast 3 mm thick sections acquired from the skull base to the T4 level.? Sagittal and coronal reformats were then constructed.? For radiation dose reduction, the following was used:? automated exposure control, adjustment of mA and/or kV according to patient size.? ? COMPARISON:? [facility], MR, CERVICAL SPINE WO CON, 12/22/2021, 15:28. ? FINDINGS:? Image quality:? Excellent.? ? Bones:? No fractures or dislocations.? Visualized superior ribs are intact.? ? Soft tissues:? Prevertebral soft tissues are normal in thickness.? No paravertebral hematomas.? No apical pneumothoraces.? ? ? IMPRESSION:? No acute finding. ? ? ? Dictated by: Link Peralta M.D. on 07/07/2022 at 16:08 ? ? Approved by: Link Peralta M.D. on 07/07/2022 at 16:09?? CT scan - head: Radiologist's Impression: [address] [address] [address] Scan Report Signed Patient: Driss Tom MR#: [id number] : 1955 Acct:[id number] Age/Sex: 66 / F Date of Service: 07/07/22 Loc: ED Accession Number: [id number] ?? Procedure: CT head/brain wo con Ordering Provider: Fred Huizar D.O. PROCEDURE:? CT HEAD/BRAIN WO CON ? INDICATIONS:? found down ? TECHNIQUE:? Noncontrast 4.5 mm thick angled axial sections acquired from the foramen magnum to the vertex, with coronal and sagittal reformats.? For radiation dose reduction, the following was used:? automated exposure control, adjustment of mA and/or kV according to patient size.? ? COMPARISON:? [facility], MR, MR STROKE, 06/02/2021, 9:16. ? FINDINGS:? There is a right temporal and frontoparietal convexity subdural hematoma with multifocal extension into the subarachnoid space.? Hypoattenuating changes of the right anterior temporal lobe suggest underlying parenchymal contusion.? The subdural hematoma demonstrates mixed density suggesting that it could represent an acute on chronic subdural hematoma.? There is minimal 4 mm right left midline shift.? Mild effacement of the right temporal horn.? Basilar cisterns patent.? Left frontoparietal cephalohematoma.? No acute orbital abnormality.? Paranasal sinuses and mastoid air cells are predominantly clear. ? IMPRESSION: ? Right cerebral convexity subdural hematoma with associated multifocal subarachnoid hemorrhage.? ? Appearance of vasogenic edema in the right temporal lobe suggestive of underlying cortical contusions, although this is not entirely definitive and MRI with IV contrast could be considered to further evaluate and help exclude underlying mass or infarct. ? Dictated by: Link Peralta M.D. on 07/07/2022 at 15:57 ? ? Approved by: Link Peralta M.D. on 07/07/2022 at 16:07?? Chest x-ray: Radiologist's Impression: [address] [address] XRay Report Signed Patient: Driss Tom MR#: [id number] : 1955 Acct:[id number] Age/Sex: 66 / F Date of Service: 07/07/22 Loc: ED Accession Number: [id number] ?? Procedure: XR chest 1V Ordering Provider: Fred Huizar D.O. PROCEDURE:? XR CHEST 1V ? INDICATIONS:? found down ? TECHNIQUE:? One view of the chest was acquired.? ? COMPARISON:? [facility], CR, XR CHEST 1V, 07/02/2020, 20:51. ? FINDINGS:? ? Surgical changes and devices:? None.? ? Lungs and pleura:? Lungs are clear.? No pleural effusions or pneumothorax.? ? Mediastinum:? Mediastinal contours appear normal.? Heart size is normal.? ? Bones and chest wall:? No suspicious bony lesions.? Overlying soft tissues appear unremarkable.? ? IMPRESSION:? No acute cardiopulmonary pathology. ? ? Dictated by: Andry Bella M.D. on 07/07/2022 at 16:30 ? ? Approved by: Andry Bella M.D. on 07/07/2022 at 16:30? ECG Data Interpretation: [place] [address] CT Scan Report Signed Patient: Driss Tom MR#: [id number] : 1955 Acct:[id number] Age/Sex: 66 / F Date of Service: 07/07/22 Loc: ED Accession Number: [id number] ?? Procedure: CT cervical spine wo con Ordering Provider: Fred Huizar D.O. PROCEDURE:? CT CERVICAL SPINE WO CON ? INDICATIONS:? found down ? TECHNIQUE:? Noncontrast 3 mm thick sections acquired from the skull base to the T4 level.? Sagittal and coronal reformats were then constructed.? For radiation dose reduction, the following was used:? automated exposure control, adjustment of mA and/or kV according to patient size.? ? COMPARISON:? [facility], MR, MR CERVICAL SPINE WO CON, 12/22/2021, 15:28. ? FINDINGS:? Image quality:? Excellent.? ? Bones:? No fractures or dislocations.? Visualized superior ribs are intact.? ? Soft tissues:? Prevertebral soft tissues are normal in thickness.? No paravertebral hematomas.? No apical pneumothoraces.? ? ? IMPRESSION:? No acute finding. ? ? ? Dictated by: Link Peralta M.D. on 07/07/2022 at 16:08 ? ? Approved by: Link Peralta M.D. on 07/07/2022 at 16:09? MDM Narrative Medical decision making narrative: Contusion to left side of scalp. GCS of 12. Does follow commands. Is maintaining airway. No indication for intubation immediately upon arrival. No extremity trauma noted. Was placed in a cervical collar upon arrival. Was hypothermic. Active rewarming started. Her temperature improved. Cervical spine CT is unremarkable. Chest x-ray is unremarkable. Head CT shows subarachnoid and subdural hemorrhage which are more consistent with traumatic rather than aneurysmal. Patient was initially hypertensive. Was started on linwood ardipine but was only on nicardipine for approximately 10 minutes. Blood pressures remain less than 140 and has subsequently been removed. Patient did have an elevation in prolactin. She is never had a seizure before. She did have a loss of bowel or bladder. During her time here she did become more responsive. She was able to say ?no ?and ?I am hot ?she purposefully remove some of the blankets off of her. Some concern for seizure activity so was given 1 g Keppra. Did discuss the case with Dr. Thompson at [facility] who accepts the patient in transfer. Patient and patient's were made aware of this and patient's agrees with transfer. I do not feel that the patient has capacity to make decisions currently. Patient is stable for transport. Critical Care Time Critical Care Time Critical Care Time: Yes Total Critical Care Time: 45 Attestation: The high probability of a clinically significant, sudden or life threatening deterioration of the trauma, neurologic system(s) required my full and direct attention, intervention and personal management. The aggregate critical care time was []45 minutes. This time is in addition to time spent performing reported procedures but includes the following: [x] Data Review and interpretation [x] Patient assessment and monitoring of vital signs x[] Documentation [x] Medication orders and management Discharge Plan Departure Patient Disposition: [facility] Clinical Impression: Subdural hematoma, Subarachnoid hemorrhage, Contusion of scalp Prescriptions: No Action pen needle, diabetic [BD Althea 2nd Gen Pen Needle] 32 gauge x 5/32 needle See Rx Instructions .ROUTE .COMPLEX Qty: 600 3RF Dose Instruction: USE TO INJECT INSULIN DAILY DIRECTED Rx Instructions: USE TO INJECT INSULIN DAILY DIRECTED Javi Recio U-100 Insulin 100 unit/mL (3 mL) insulin pen 30 unit SUBCUT DAILY Qty: 30 3RF Label Comments: takes about 26 units in the evening sertraline 50 mg tablet 50 mg PO DAILY Qty: 90 3RF atorvastatin 40 mg tablet 40 mg PO DAILY Qty: 90 3RF cephalexin 500 mg capsule 500 mg PO TID Qty: 15 0RF lisinopril 5 mg tablet 5 mg PO DAILY Qty: 90 3RF metformin 1,000 mg tablet See Rx Instructions .ROUTE .COMPLEX Qty: 180 3RF Dose Instruction: take 1 tablet by mouth twice a day Rx Instructions: take 1 tablet by mouth twice a day metoprolol succinate 25 mg tablet extended release 24 hr See Rx Instructions .ROUTE .COMPLEX Qty: 90 3RF Dose Instruction: take 1/2 tablet by mouth once daily Rx Instructions: take 1/2 tablet by mouth once daily aspirin 81 mg tablet,delayed release (DR/EC) 81 mg PO DAILY Referrals: Xiomara Diego DO [Primary Care Provider] - Stand Alone Forms: Naloxone Standing Order THERESE
[2022-07-07 15:50] LABS: Add Manual Diff / Slide Review NO; Basophils Absolute Auto 0 /uL (0-100); Basophils Percent Auto 0.2 % (0-2); Eosinophils Absolute Auto 100 /uL (0-450); Eosinophils Percent Auto 0.4 % (2-4); Hemoglobin 13.2 g/dL (12.0-16.0); Lymphocytes Absolute Auto 2500 /uL (1100-4500); Lymphocytes Percent Auto 15.2 % (25-40); Mean Corpuscular HGB Conc 34.8 % (30-36); Mean Corpuscular Hemoglobin 29.5 PG (26-34); Mean Corpuscular Volume 84.7 fL (80-100); Monocytes Absolute Auto 600 /uL (0-900); Monocytes Percent Auto 3.5 % (3-14); Neutrophils Absolute Auto 13300 /uL (1500-7000); Neutrophils Percent Auto 80.7 % (50-75); Platelet Count 298 X10^3/uL (150-400); Red Blood Cell Count 4.48 X10^6/uL (4.0-5.2); Red Cell Distribution Width 13.1 % (11.6-14.8); White Blood Cell Count 16.4 X10^3/uL (4.5-11.0)
[2022-07-07 16:02] LABS: INR 1.1 (0.9-1.3); Prothrombin Time 12.5 SECONDS (10.1-12.7)
[2022-07-07 16:02] LABS: Appearance Urine UA CLEAR; Bilirubin Urine UA NEGATIVE (NEGATIVE); Color Urine UA YELLOW; Glucose Urine UA NEGATIVE (Negative); Ketones Urine UA NEGATIVE (NEGATIVE); Leukocyte Esterase Urine UA TRACE (NEGATIVE); Nitrite Urine UA NEGATIVE (Negative); Occult Blood Urine UA NEGATIVE (Negative); Protein Urine UA NEGATIVE (Negative); Specific Gravity Urine UA 1.025 (1.000-1.035); Urobilinogen Urine UA 0.2 E.U./dL (0.2)
[2022-07-07 16:04] LABS: Bacteria Urine None Seen; Culture Indicated Urine Specimen Cultured; RBC Urine None Seen (0-5/HPF); WBC Urine 0-1/HPF (0-5/HPF)
[2022-07-07 16:05] LABS: PTT Partial Thromboplastin Tim 30 SECONDS (26-36)
[2022-07-07] MEDS: NICARDIPINE 25 MG in SODIUM CHLORIDE 0.9% 240 ML 50 MG IV (16:07)
[2022-07-07] MEDS: SODIUM CHLORIDE 0.9% 1,000 ML 125 ML IV (16:07)
[2022-07-07 16:09] LABS: Alanine Aminotransferase 21 IU/L (<35); Albumin 4.3 g/dL (3.5-5.0); Albumin Globulin Ratio 1.5 (1.0-2.8); Alkaline Phosphatase 62 U/L (38-126); Aspartate Aminotransferase 35 IU/L (14-36); BUN Creatinine Ratio 22.2 (6-22); Bilirubin Total 0.4 mg/dL (0.2-1.3); Blood Urea Nitrogen 12 mg/dL (7-17); Calcium 8.8 mg/dL (8.4-10.2); Carbon Dioxide 24 mmol/L (22-32); Chloride 102 mmol/L (98-107); Creatine Kinase 82 U/L (30-135); Estimated Glomerular Filt Rate > 60 mL/min (>60); Ethanol (ETOH) < 10 mg/dL; Globulin 2.8 g/dL (1.7-4.1); Glucose 146 mg/dL (80-110); HEMOLYSIS < 15 (0-50); Lipase 465 U/L (23-300); Magnesium 1.1 mg/dL (1.6-2.3); Potassium 3.8 mmol/L (3.4-5.1); Sodium 142 mmol/L (137-145); Total Protein 7.1 g/dL (6.3-8.2)
[2022-07-07 16:10] LABS: Lactate (Lactic Acid) 5.2 mmol/L (0.7-2.1)
[2022-07-07 16:15] LABS: COVID19 -Nasal RAPID Negative (Negative)
[2022-07-07 16:21] LABS: Troponin I < 0.012 ng/mL (0.01-0.034)
[2022-07-07 16:26] LABS: Procalcitonin < 0.03 ng/mL (<0.5); Prolactin 52.3 ng/mL (3.0-18.6)
--- NOTE | 2022-07-07 16:47 | PC.NURSE ---
Addendum entered by Glenys Smith R.N. 07/07/22 18:35: temp 97.9 with fluid warmer and bear hugger application Original Note: Pt noted to be more alert-- kicking off blankets and said im hot, when asked where she hurts pt clearly stated my head. Pt noted to have loss of bladder and bowel on arrival, hypothermic at 94.1 core with temp doan placed and temp 97.9 core at this time. Dr Huizar made aware. Noted to have elevated prolactin. Coverage with Keppra ordered administered.
[2022-07-07] MEDS: levETIRAcetam 1,000 MG in SODIUM CHLORIDE 0.9% 100 ML 440 MG IV (16:59)
[2022-07-07] MEDS: ONDANSETRON 4 MG/2 ML INJ IV ×2 (17:00→18:02)
[2022-07-07 17:46] LABS: Reflexed Lactate in 2 Hours Y
[2022-07-07 17:47] LABS: Lactate (Lactic Acid) 2.6 mmol/L (0.7-2.1)
[2022-07-07] MEDS: fentaNYL 100 MCG/2 ML INJ 25 MCG IV (18:02)
--- NOTE | 2022-07-07 18:09 | PC.NURSE ---
report given to WOLFGANG RN and transfer of care at this time. pt departed ED at 1805.
--- NOTE | 2022-07-07 18:32 | PC.NURSE ---
WOLFGANG forgot packet. Call received from ED, Entire packet sent to [facility] to [phone]
== END 2022-07-07 18:10 | disposition short-term general hospital (02) ==
PROVIDERS: Emergency Provider Emergency Medicine; PCP Family Medicine
DX: S06.5X9A Traumatic subdural hemorrhage with loss of consciousness of unspecified duration, initial encounter (principal); S06.6X9A Traumatic subarachnoid hemorrhage with loss of consciousness of unspecified duration, initial encounter; S00.03XA Contusion of scalp, initial encounter; Z20.822 Contact with and (suspected) exposure to COVID-19
CPT/HCPCS: 36415; 70450; 71045; 72125; 80053; 80320; 81001; 82550; 82962; 83605; 83690; 83735; 84145; 84146; 84484; 85025; 85610; 85730; 87040; 87086; 87635; 96365; 96367; 96375; 96376; 99285; 99291; 99292; C9803; G0390; J1953; J2405; J3010

== ENCOUNTER → 2022-08-12 09:03 | Outpatient (CLI) | payer MEDICARE, SELFPAY ==
[2020-12-16 06:20] VITALS: BMI 25.4
--- NOTE | 2022-08-12 09:06 | DI.CT.S_ITS ---
PROCEDURE: CT HEAD/BRAIN WO/W CON INDICATIONS: Nontraumatic subarachnoid hemorrhage/STAT LAB EO TECHNIQUE: 4.5 mm thick angled axial sections acquired from the foramen magnum to the vertex before and after the administration of intravenous contrast, with coronal and sagittal reformats. For radiation dose reduction, the following was used: automated exposure control, adjustment of mA and/or kV according to patient size. COMPARISON: [facility], MR, MR STROKE, 06/02/2021, 9:16. [facility], CT, CT ANGIO HEAD AND NECK, 12/16/2020, 3:26. [facility], CT, CT HEAD/BRAIN WO CON, 07/07/2022, 15:40. FINDINGS: Image quality: Excellent. CSF Spaces: Basal cisterns are patent. No extra-axial fluid collections. Ventricles are normal in size and shape. Brain: No midline shift. No intracranial bleeds or masses. No abnormal intracranial enhancement. Small old right middle temporal gyrus cortical infarct. No residual subdural or subarachnoid hemorrhage. No abnormal enhancement. Old lacunar infarct noted the right thalamus Skull and face: Right frontal osteolytic calvarial lesion predominantly involves the outer table and diploic space measures 2.6 cm Sinuses: Visualized sinuses and mastoids are clear. IMPRESSION: 1. Resolution of previously described right subdural and subarachnoid hemorrhage. No abnormal enhancement. If there is clinical concern for aneurysm, consider follow-up CT angiogram 2. 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 Differential consideration would be metastasis versus hemangioma. Consider follow-up bone scan confirmation 2. Atrophy, chronic ischemic change and old right temporal cortical and right thalamic lacunar infarcts. Approved by: Doug Grayson M.D. on 08/12/2022 at 15:13
[2022-08-12 09:37] LABS: Estimated Glomerular Filt Rate > 60 mL/min (>60)
== END ==
PROVIDERS: Specialist; PCP Family Medicine; Referring Provider Nurse Practitioner; Visit Provider Nurse Practitioner
DX: I62.00 Nontraumatic subdural hemorrhage, unspecified (principal); I60.9 Nontraumatic subarachnoid hemorrhage, unspecified; I63.9 Cerebral infarction, unspecified; M89.9 Disorder of bone, unspecified
CPT/HCPCS: 36415; 70470; 82565; Q9967

== ENCOUNTER → 2022-10-25 10:02 | Outpatient (CLI) | payer MEDICARE, SELFPAY ==
[2020-12-16 06:20] VITALS: BMI 25.4
[2022-10-25 12:23] LABS: Alanine Aminotransferase 22 IU/L (<35); Albumin 4.6 g/dL (3.5-5.0); Albumin Globulin Ratio 1.5 (1.0-2.8); Alkaline Phosphatase 68 U/L (38-126); Aspartate Aminotransferase 39 IU/L (14-36); BUN Creatinine Ratio 24.1 (6-22); Bilirubin Total 0.7 mg/dL (0.2-1.3); Blood Urea Nitrogen 14 mg/dL (7-17); Calcium 9.5 mg/dL (8.4-10.2); Carbon Dioxide 28 mmol/L (22-32); Chloride 100 mmol/L (98-107); Estimated Glomerular Filt Rate > 60 mL/min (>60); Globulin 3.1 g/dL (1.7-4.1); Glucose 116 mg/dL (80-110); HEMOLYSIS < 15 (0-50); Hemoglobin A1C% w Est Avg Glu 6.5 % (4.0-6.0); Potassium 4.6 mmol/L (3.4-5.1); Sodium 141 mmol/L (137-145); Total Protein 7.7 g/dL (6.3-8.2)
== END ==
PROVIDERS: Family Provider Family Medicine; PCP Family Medicine; Referring Provider Family Medicine; Visit Provider Family Medicine
DX: E11.319 Type 2 diabetes mellitus with unspecified diabetic retinopathy without macular edema (principal)
CPT/HCPCS: 36415; 80053; 83036

== ENCOUNTER → 2022-11-22 14:44 | Outpatient (CLI) | payer MEDICARE, SELFPAY ==
[2020-12-16 06:20] VITALS: BMI 25.4
[2022-11-22 15:17] LABS: Appearance Urine UA SL CLOUDY; Bilirubin Urine UA NEGATIVE (NEGATIVE); Color Urine UA YELLOW; Glucose Urine UA NEGATIVE (Negative); Ketones Urine UA TRACE (NEGATIVE); Leukocyte Esterase Urine UA 1+ (NEGATIVE); Nitrite Urine UA POSITIVE (Negative); Occult Blood Urine UA NEGATIVE (Negative); Protein Urine UA NEGATIVE (Negative)
[2022-11-22 15:22] LABS: pH Urine UA 5.5 (4.5-8.0)
[2022-11-22 15:29] LABS: Bacteria Urine Many (>30); Culture Indicated Urine Specimen Cultured; RBC Urine None Seen (0-5/HPF); Squamous Epithelial Cell Urine 1-5 /HPF (0-5/HPF); WBC Urine 10-30/HPF (0-5/HPF)
== END ==
PROVIDERS: Family Provider Family Medicine; PCP Family Medicine; Referring Provider Family Medicine; Visit Provider Family Medicine
DX: R39.15 Urgency of urination (principal)
CPT/HCPCS: 81001; 87077; 87086; 87186

== ENCOUNTER 2022-12-20 09:30 | Outpatient (RCR) | payer MEDICARE, SELFPAY ==
[2020-12-16 06:20] VITALS: BMI 25.4
--- NOTE | 2022-10-25 15:30 | OT.OP.EVAL ---
Visit Care Team Role Provider Type Xiomara Diego DO Attending Provider Physician Family Provider Primary Care Provider Referring Provider Specialty: Family Practice Address: [address] [place] [address], [facility], [place], [address] Email: [email or web address] Occupational Therapy Initial Evaluation OT Outpatient Adult Evaluation Start: 10/26/22 08:26 Freq: Status: Active Protocol: Document 10/25/22 15:30 AMS (Rec: 10/26/22 09:43 AMS [id number]) General Information - Adult Visit Number 09/07 Plan of Care Dates 10/25/22 - 01/17/23 Insurance Information AARP Medicare; no pre-auth; therapist only Visit Start Time 10:30 Visit Stop Time 11:15 Total Visit Minutes 45 Treatment Setting Outpatient Care Note Type Initial Evaluation Identification Confirmed Yes Identification Confirmed By Patient Goals Treatment Reviewed L UE functional range of motion options. Discussed goals and plan of care. Short Term Goals 1. Karolina will have increased success with active incorporation of the left upper extremity d/t improved ROM: 1a. 0-130 degrees active L elbow flexion. 1b. 0-50 degrees active L sh abduction. 1c. 0-50 degrees active L sh flexion. 1d. 0-50 degrees active L wrist extension. 2. Karolina will actively participate in additional standardized assessments to establish baseline. Fine Sander Goals 1. Karolina will demonstrate increased success with active incorporation of the left upper extremity in daily life. 1a. This will be evidenced by obtaining a score of 40.0 or less on the QuickDASH UE Outcome Measure. 2. Karolina will be modified independent with left upper extremity home exercise program utilizing provided written and visual instructions from therapist. Assessment/Plan Treatment Assessment Patient is a 66 year-old female referred to outpatient OT by PCP secondary to residual deficits of the left side secondary to ischemic CVA . PMH: Significant for depression; diabetes mellitus; essential hypertension; ventricular tachycardia; hyperlipidemia; type [address] Scan of Head w/ and without contrast performed 08/12/22; impression was as follows - resolution of previously described right subdural and subarachnoid hemorrhage w/ no abnormal enhancement w/ osteolytic right frontal calvarial lesion slightly enlarged compared to 12/16/20; atrophy, chronic ischemic change and old right temporal cortical and right thalamic lacunar infarcts. Karolina reports having fall in June 2022 w/ fracturing of skull and subsequent airlift and hospitalization at [facility] x 10 days. Since fall, Karolina reports dizziness, decreased motivation, weakness /loss of abilities of the L UE and arm, and fatigue. She is being seen by an ENT and will be evaluated for PT to address dizziness; positional changes tend to lead to dizziness per Karolina. Patient Goals = improve function of left UE; address ROM/abilities of the L hand Evaluation Findings = Karolina presented ambulating w/ SPC w/ L orthosis to address foot drop; report of not driving. Friend assisting her w/ commute to and from medical appointments approx 2 times per week. Karolina is not cooking at this time and recently started going upstairs and assisting w/ laundry (outside of folding it given reported coordination difficulties). Karolina is using music glove x 30 minutes, 3 to 4 times per week. Karolina reports difficulties w/ memory and contrentation; she was oriented to date and arrived on time to appointment and did not need assistance w/ locating exit of outpatient clinic; she was also able to complete QuickDASH UE Outcome Measure and Pain Assessments on own without assist from therapist. No c/o pain in L hand/wrist; indication of 1/10 on Pain Assessment Grid relative to L scapular region. QuickDASH UE Outcome Measure Score = 56.82. Decreased L UE AROM. Decreased in-hand manipulation/coordination of the left hand; able to oppose L thumb to each digit pad w/ increased difficulty opposing to 5th digit. Outpatient occupational therapy is recommended to address L UE weakness, coordination/motor planning, object manipulation and activity tolerance to support Karolina's success with active incorporation of the left, non -dominant side with completion of meaningful activities in a variety of environments. Will need to monitor concerns re: memory/concentration to determine if Karolina would likely benefit from [employer] outpatient referral. Length of treatment (weeks) 12 Plan of Care Start Date 10/25/22 Plan of Care End Date 01/17/23 Comment 1-2 times per week Therapeutic Contents Active Range of Motion, Adaptive Equipment Education, Client Education,Cognitive Skills Development,Functional Activities,Home Exercise Program,Joint Protection, Manual Therapy,Education, Neurodevelopment Treatment, Neuromuscular Re-Education, Self-Care,Stretching/ Flexibility Activities, Therapeutic Activities, Therapeutic Exercises, Modalities,Sensory Re- education Modalities As Needed,As Prescribed Types of Modalities E-Stim,Ultrasound Additional Types of Modalities Heat/Cold/Paraffin
--- NOTE | 2022-10-29 11:46 | OT.OP.TRT ---
Visit Care Team Role Provider Type Xiomara Diego DO Attending Provider Physician Family Provider Primary Care Provider Referring Provider Specialty: Family Practice Address: [address] [place] [address], [facility], [place], [address] Email: [email or web address] Occupational Therapy Treatment Note OT Outpatient Treatment Note - Adult Start: 10/26/22 08:26 Freq: Status: Active Protocol: Document 10/29/22 11:28 AMS (Rec: 10/29/22 11:46 AMS [id number]) OT Outpatient Adult Treatment Note Session Time Visit Start Time 09:30 Visit Stop Time 10:10 Total Visit Minutes 40 Visit Information Visit Number 10/08 Plan of Care Dates 10/25/22 - 01/17/23 Insurance Information AARP Medicare; no pre-auth; therapist only Setting Treatment Setting Outpatient Care Visit Type Note Type Treatment Note General Information General Information Patient is a 66 year-old female referred to outpatient OT by PCP secondary to residual deficits of the left side secondary to ischemic CVA . PMH: Significant for depression; diabetes mellitus; essential hypertension; ventricular tachycardia; hyperlipidemia; type [address] Scan of Head w/ and without contrast performed 08/12/22; impression was as follows - resolution of previously described right subdural and subarachnoid hemorrhage w/ no abnormal enhancement w/ osteolytic right frontal calvarial lesion slightly enlarged compared to 12/16/20; atrophy, chronic ischemic change and old right temporal cortical and right thalamic lacunar infarcts. Karolina reports having fall in June 2022 w/ fracturing of skull and subsequent airlift and hospitalization at [facility] x 10 days. Since fall, Karolina reports dizziness, decreased motivation, weakness /loss of abilities of the L UE and arm, and fatigue. She is being seen by an ENT and will be evaluated for PT to address dizziness; positional changes tend to lead to dizziness per Karolina. - Subjective Identification Type Name Identification Reconciled With Medical Record Observations Karolina was accompanied by Karen to treatment session; Karen is helping Karolina approx 20 hours per week with doing her exercises. Patient/Caregiver Compliance with Home Good Exercise Program Comment w/ support - Objective Objective Measurements Please refer to below for progress towards meeting established OT goals. Short Term Goals 1. Karolina will have increased success with active incorporation of the left upper extremity d/t improved ROM: 1a. 0-130 degrees active L elbow flexion. 1b. 0-50 degrees active L sh abduction. 1c. 0-50 degrees active L sh flexion. 1d. 0-50 degrees active L wrist extension. GOALS MET Karolina will actively participate in additional standardized assessments to establish baseline. *MET 10/29/22 [facility] Goals 1. Karolina will demonstrate increased success with active incorporation of the left upper extremity in daily life. 1a. This will be evidenced by obtaining a score of 40.0 or less on the QuickDASH UE Outcome Measure. 1b. This will be evidenced by ability to complete 9-HPT with the left hand without physical assistance from the right hand. 2. Karolina will be modified independent with left upper extremity home exercise program utilizing provided written and visual instructions from therapist. - Treatment 2 Descriptor In-hand object manipulation. Opposition. Functional positioning of wrist in neutral/extension. Opposition slides (pad --> base of finger and base of finger --> pad). Rotation of golf-sized ball w/ use of thumb. 1 Descriptor Standardized assessments. 9- HPT. - Assessment Assessment of Improvement The 9-Hole Peg Test is a timed test in which 9 pegs are inserted and removed from 9 holes in the pegboard with each hand. It is an assessment that can be used to assess hand dexterity. Karolina was unable to complete the assessment with the left hand without assistance from the right hand; thus, Karolina would likely benefit from treatment addressing coordination of the left hand. Able to problem solve w/ Karolina and Graves re: weight bearing exercises w/ square of dycem to support carry-over. Recommend use of inclined surface for UE ROM/ working against gravity; recommend forearm stabilization to discourage sh elevation and support distal object manipulation. Overall, good session. Outpatient occupational therapy is recommended to address L UE weakness, coordination/motor planning, object manipulation and activity tolerance to support Karolina's success with active incorporation of the left, non -dominant side with completion of meaningful activities in a variety of environments. Will need to monitor concerns re: memory/concentration to determine if Karolina would likely benefit from [employer] outpatient referral. Home Exercise Program Provided dycem square for L UE to support ability to execute quadriped weight bearing exercises at floor level. Opposition slides (pad --> base of finger and base of finger --> pad). Education re: stabilization of L forearm to discourage L sh elevation and support distal UE object manipulation. Discussion re: functional weight bearing of UE/hands positioned to sides of body and lifting 'bottom' off of seat. - Plan Therapy Recommendations Continue with Current Program, Advance per Rehabilitation Protocol Occupational Therapy Assessment OT Outpatient Standardized Assessments Start: 10/26/22 08:26 Freq: Status: Active Protocol: Document 10/29/22 11:28 AMS (Rec: 10/29/22 11:46 AMS [id number]) 9-Hole Peg Hand Test Hand Left Date of Test 10/29/22 Comments Scoring Time = 4 min, 34 sec; assist from R hand x 4 pegs Right Date of Test 10/29/22 Comments Scoring Time = 26.9 sec
--- NOTE | 2022-11-02 11:10 | OT.OP.TRT ---
Visit Care Team Role Provider Type Xiomara Diego DO Attending Provider Physician Family Provider Primary Care Provider Referring Provider Specialty: Family Practice Address: [address] [place] [address], [facility], [place], [address] Email: [email or web address] Occupational Therapy Treatment Note OT Outpatient Treatment Note - Adult Start: 10/26/22 08:26 Freq: Status: Active Protocol: Document 11/02/22 11:05 AMS (Rec: 11/02/22 11:10 AMS [id number]) OT Outpatient Adult Treatment Note Session Time Visit Start Time 09:30 Visit Stop Time 10:00 Total Visit Minutes 30 Visit Information Visit Number 11/05 Plan of Care Dates 10/25/22 - 01/17/23 Insurance Information AARP Medicare; no pre-auth; therapist only Setting Treatment Setting Outpatient Care Visit Type Note Type Treatment Note General Information General Information Patient is a 66 year-old female referred to outpatient OT by PCP secondary to residual deficits of the left side secondary to ischemic CVA . PMH: Significant for depression; diabetes mellitus; essential hypertension; ventricular tachycardia; hyperlipidemia; type [address] Scan of Head w/ and without contrast performed 08/12/22; impression was as follows - resolution of previously described right subdural and subarachnoid hemorrhage w/ no abnormal enhancement w/ osteolytic right frontal calvarial lesion slightly enlarged compared to 12/16/20; atrophy, chronic ischemic change and old right temporal cortical and right thalamic lacunar infarcts. Karolina reports having fall in June 2022 w/ fracturing of skull and subsequent airlift and hospitalization at [facility] x 10 days. Since fall, Karolina reports dizziness, decreased motivation, weakness /loss of abilities of the L UE and arm, and fatigue. She is being seen by an ENT and will be evaluated for PT to address dizziness; positional changes tend to lead to dizziness per Karolina. - Subjective Identification Type Name Identification Reconciled With Medical Record Observations Karolina was accompanied by B[place] to treatment session. Patient/Caregiver Compliance with Home Good Exercise Program Comment w/ support - Objective Objective Measurements Please refer to below for progress towards meeting established OT goals. Short Term Goals 1. Karolina will have increased success with active incorporation of the left upper extremity d/t improved ROM: 1a. 0-130 degrees active L elbow flexion. 1b. 0-50 degrees active L sh abduction. 1c. 0-50 degrees active L sh flexion. 1d. 0-50 degrees active L wrist extension. GOALS MET Karolina will actively participate in additional standardized assessments to establish baseline. 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 Karolina will demonstrate increased success with active incorporation of the left upper extremity in daily life. 1a. This will be evidenced by obtaining a score of 40.0 or less on the QuickDASH UE Outcome Measure. 1b. This will be evidenced by ability to complete 9-HPT with the left hand without physical assistance from the right hand. 2. Karolina will be modified independent with left upper extremity home exercise program utilizing provided written and visual instructions from therapist. - Treatment 2 Descriptor In-hand object manipulation. Opposition. Functional positioning of wrist in neutral/extension. Opposition slides (pad --> base of finger and base of finger --> pad). Rotation of golf-sized ball w/ use of thumb. 1 Descriptor Standardized assessments. 9- HPT. Exercises 2 Descriptor UE ROM. Inclined surface. 1 Descriptor Weight bearing/weight shifting . TT. Mat. Wall. - Assessment Assessment of Improvement [place]er e-stim; facilitation of L wrist/digit extension; intensity 44; 10/10 cycle; skin intact pre- and post- modality use. Demonstrated use of rubberband w/ e-stim protocol; also discussed methods to increase resistance to ext w/ e-stim (multiple rubberbands, single thick rubberband, use of TB #1). Karolina reports availability of e -stim unit in the home. Increased success w/ ROM w/ sh flex (anterior space) versus w/ sh abd to left of body. Overall, good session. Outpatient occupational therapy is recommended to address L UE weakness, coordination/motor planning, object manipulation and activity tolerance to support Karolina's success with active incorporation of the left, non -dominant side with completion of meaningful activities in a variety of environments. Will need to monitor concerns re: memory/concentration to determine if Karolina would likely benefit from [employer] outpatient referral. - Plan Therapy Recommendations Continue with Current Program, Advance per Rehabilitation Protocol
--- NOTE | 2022-11-12 11:40 | OT.OP.TRT ---
Visit Care Team Role Provider Type Xiomara Diego DO Attending Provider Physician Family Provider Primary Care Provider Referring Provider Specialty: Family Practice Address: [address] [place] [address], [facility], [place], [address] Email: [email or web address] Occupational Therapy Treatment Note OT Outpatient Treatment Note - Adult Start: 10/26/22 08:26 Freq: Status: Active Protocol: Document 11/12/22 11:34 AMS (Rec: 11/12/22 11:40 AMS [id number]) OT Outpatient Adult Treatment Note Session Time Visit Start Time 09:40 Visit Stop Time 10:10 Total Visit Minutes 30 Visit Information Visit Number 12/06 Plan of Care Dates 10/25/22 - 01/17/23 Insurance Information AARP Medicare; no pre-auth; therapist only Setting Treatment Setting Outpatient Care Visit Type Note Type Treatment Note General Information General Information Patient is a 66 year-old female referred to outpatient OT by PCP secondary to residual deficits of the left side secondary to ischemic CVA . PMH: Significant for depression; diabetes mellitus; essential hypertension; ventricular tachycardia; hyperlipidemia; type [address] Scan of Head w/ and without contrast performed 08/12/22; impression was as follows - resolution of previously described right subdural and subarachnoid hemorrhage w/ no abnormal enhancement w/ osteolytic right frontal calvarial lesion slightly enlarged compared to 12/16/20; atrophy, chronic ischemic change and old right temporal cortical and right thalamic lacunar infarcts. Karolina reports having fall in June 2022 w/ fracturing of skull and subsequent airlift and hospitalization at [facility] x 10 days. Since fall, Karolina reports dizziness, decreased motivation, weakness /loss of abilities of the L UE and arm, and fatigue. She is being seen by an ENT and will be evaluated for PT to address dizziness; positional changes tend to lead to dizziness per Karolina. - Subjective Identification Type Name Identification Reconciled With Medical Record Observations Karolina reported having difficulty doing granddaughter 's hair. Preference = Karolina. *Karen has been assisting w/ carry-over of exercises. Grandchildren = Bianka and Ricardo Patient/Caregiver Compliance with Home Good Exercise Program Comment w/ support - Objective Objective Measurements Please refer to below for progress towards meeting established OT goals. Short Term Goals 1. Karolina will have increased success with active incorporation of the left upper extremity d/t improved ROM: 1a. 0-130 degrees active L elbow flexion. 1b. 0-50 degrees active L sh abduction. 1c. 0-50 degrees active L sh flexion. 1d. 0-50 degrees active L wrist extension. GOALS MET Karolina will actively participate in additional standardized assessments to establish baseline. 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 Karolina will demonstrate increased success with active incorporation of the left upper extremity in daily life. 1a. This will be evidenced by obtaining a score of 40.0 or less on the QuickDASH UE Outcome Measure. 1b. This will be evidenced by ability to complete 9-HPT with the left hand without physical assistance from the right hand. 2. Karolina will be modified independent with left upper extremity home exercise program utilizing provided written and visual instructions from therapist. - Exercises 4 Descriptor L UE Theraband Strengthening. Elbow extension. TB #2. 2 x 10 . Sh extension. TB #2. 2 x 10. Seated row/Scapular retraction . TB #2. 2 x 10. Hor sh abd w/ TT support. TB # 1. 2 x 10. 3 Descriptor Finger/hand strengthening. Resistance clothespins on vertically positioned dowels. 1 to 8# of force resistance. 2 Descriptor UE ROM. Inclined surface. - Assessment Assessment of Improvement (+) use of wide width rubberband for digit extension strengthening. Difficulties reported w/ caring for her 2 grandchildren (Bianka and Ricardo ). (+) sh elevation/hiking w/ engagement of L UE w/ tasks away from base of support and/ or motor planning of more difficult unilateral/bimanual tasks. (+) weakness of L UE. Overall, good session. Outpatient occupational therapy is recommended to address L UE weakness, coordination/motor planning, object manipulation and activity tolerance to support Karolina's success with active incorporation of the left, non -dominant side with completion of meaningful activities in a variety of environments. Will need to monitor concerns re: memory/concentration to determine if Karolina would likely benefit from [employer]PER[employer] outpatient referral. Home Exercise Program Provided dycem square for L UE to support ability to execute quadriped weight bearing exercises at floor level. Opposition slides (pad --> base of finger and base of finger --> pad). Education re: stabilization of L forearm to discourage L sh elevation and support distal UE object manipulation. Discussion re: functional weight bearing of UE/hands positioned to sides of body and lifting 'bottom' off of seat. - Plan Therapy Recommendations Continue with Current Program, Advance per Rehabilitation Protocol
--- NOTE | 2022-11-15 11:46 | OT.OP.TRT ---
Visit Care Team Role Provider Type Xiomara Diego DO Attending Provider Physician Family Provider Primary Care Provider Referring Provider Specialty: Family Practice Address: [address] [place] [address], [facility], [place], [address] Email: [email or web address] Occupational Therapy Treatment Note OT Outpatient Treatment Note - Adult Start: 10/26/22 08:26 Freq: Status: Active Protocol: Document 11/15/22 11:42 AMS (Rec: 11/15/22 11:46 AMS [id number]) OT Outpatient Adult Treatment Note Session Time Visit Start Time 09:30 Visit Stop Time 10:00 Total Visit Minutes 30 Visit Information Visit Number 01/05 Plan of Care Dates 10/25/22 - 01/17/23 Insurance Information AARP Medicare; no pre-auth; therapist only Setting Treatment Setting Outpatient Care Visit Type Note Type Treatment Note General Information General Information Patient is a 66 year-old female referred to outpatient OT by PCP secondary to residual deficits of the left side secondary to ischemic CVA . PMH: Significant for depression; diabetes mellitus; essential hypertension; ventricular tachycardia; hyperlipidemia; type [address] Scan of Head w/ and without contrast performed 08/12/22; impression was as follows - resolution of previously described right subdural and subarachnoid hemorrhage w/ no abnormal enhancement w/ osteolytic right frontal calvarial lesion slightly enlarged compared to 12/16/20; atrophy, chronic ischemic change and old right temporal cortical and right thalamic lacunar infarcts. Karolina reports having fall in June 2022 w/ fracturing of skull and subsequent airlift and hospitalization at [facility] x 10 days. Since fall, Karolina reports dizziness, decreased motivation, weakness /loss of abilities of the L UE and arm, and fatigue. She is being seen by an ENT and will be evaluated for PT to address dizziness; positional changes tend to lead to dizziness per Karolina. - Subjective Identification Type Name Identification Reconciled With Medical Record Observations Treatment session shortened d/ t Karolina's ride waiting. Preference = Karolina. *Karen has been assisting w/ carry-over of exercises. Grandchildren = Bianka and Ricardo Patient/Caregiver Compliance with Home Good Exercise Program Comment w/ support - Objective Objective Measurements Please refer to below for progress towards meeting established OT goals. Short Term Goals 1. Karolina will have increased success with active incorporation of the left upper extremity d/t improved ROM: 1a. 0-130 degrees active L elbow flexion. 1b. 0-50 degrees active L sh abduction. 1c. 0-50 degrees active L sh flexion. 1d. 0-50 degrees active L wrist extension. GOALS MET Karolina will actively participate in additional standardized assessments to establish baseline. *MET 10/29/22 Fdc Goals 1. Karolina will demonstrate increased success with active incorporation of the left upper extremity in daily life. 1a. This will be evidenced by obtaining a score of 40.0 or less on the QuickDASH UE Outcome Measure. 1b. This will be evidenced by ability to complete 9-HPT with the left hand without physical assistance from the right hand. 2. Karolina will be modified independent with left upper extremity home exercise program utilizing provided written and visual instructions from therapist. - Exercises 4 Descriptor L UE Theraband Strengthening. Elbow extension. TB #2. 3 x 10 . Sh extension. TB #1. 3 x 10. Seated row/Scapular retraction . TB #2. 3 x 10. ER w/ TT support. 3 x 10. N/A 11/15/22 Hor sh abd w/ TT support. TB #1. 2 x 10. 3 Descriptor Finger/hand strengthening. Resistance clothespins on vertically positioned dowels. 1 to 8# of force resistance. - Assessment Assessment of Improvement (+) use of wide width rubberband for digit extension strengthening. Trialed L UE supported ER to discourage sh elevation and assist w/ isolation/decreased compensatory strategies and increase active range of motion. May need to trial this exercise in sidelying. L UE weakness; difficulty maintaining elbow extension for functional reaching and tendency into sh elevation. Overall, good session. Outpatient occupational therapy is recommended to address L UE weakness, coordination/motor planning, object manipulation and activity tolerance to support Karolina's success with active incorporation of the left, non -dominant side with completion of meaningful activities in a variety of environments. Will need to monitor concerns re: memory/concentration to determine if Karolina would likely benefit from EMAIL DESIGNER outpatient referral. Home Exercise Program Provided chris square for L UE to support ability to execute quadriped weight bearing exercises at floor level. Opposition slides (pad --> base of finger and base of finger --> pad). Education re: stabilization of L forearm to discourage L sh elevation and support distal UE object manipulation. Discussion re: functional weight bearing of UE/hands positioned to sides of body and lifting 'bottom' off of seat. - Plan Therapy Recommendations Continue with Current Program, Advance per Rehabilitation Protocol
--- NOTE | 2022-11-18 12:13 | OT.OP.TRT ---
Visit Care Team Role Provider Type Xiomara Diego DO Attending Provider Physician Family Provider Primary Care Provider Referring Provider Specialty: Family Practice Address: [address] [place] [address], [facility], [place], [address] Email: [email or web address] Occupational Therapy Treatment Note OT Outpatient Treatment Note - Adult Start: 10/26/22 08:26 Freq: Status: Active Protocol: Document 11/18/22 12:06 AMS (Rec: 11/18/22 12:13 AMS [id number]) OT Outpatient Adult Treatment Note Session Time Visit Start Time 09:30 Visit Stop Time 10:15 Total Visit Minutes 45 Visit Information Visit Number 02/05 Plan of Care Dates 10/25/22 - 01/17/23 Insurance Information AARP Medicare; no pre-auth; therapist only Setting Treatment Setting Outpatient Care Visit Type Note Type Treatment Note General Information General Information Patient is a 66 year-old female referred to outpatient OT by PCP secondary to residual deficits of the left side secondary to ischemic CVA . PMH: Significant for depression; diabetes mellitus; essential hypertension; ventricular tachycardia; hyperlipidemia; type [address] Scan of Head w/ and without contrast performed 08/12/22; impression was as follows - resolution of previously described right subdural and subarachnoid hemorrhage w/ no abnormal enhancement w/ osteolytic right frontal calvarial lesion slightly enlarged compared to 12/16/20; atrophy, chronic ischemic change and old right temporal cortical and right thalamic lacunar infarcts. Karolina reports having fall in June 2022 w/ fracturing of skull and subsequent airlift and hospitalization at [facility] x 10 days. Since fall, Karolina reports dizziness, decreased motivation, weakness /loss of abilities of the L UE and arm, and fatigue. She is being seen by an ENT and will be evaluated for PT to address dizziness; positional changes tend to lead to dizziness per Karolina. - Subjective Identification Type Name Identification Reconciled With Medical Record Observations Karolina was accompanied by friend , Karen, to session. Preference = Karolina. *Karen has been assisting w/ carry-over of exercises. Grandchildren = Bianka and Ricardo Patient/Caregiver Compliance with Home Good Exercise Program Comment w/ support - Objective Objective Measurements Please refer to below for progress towards meeting established OT goals. Short Term Goals 1. Karolina will have increased success with active incorporation of the left upper extremity d/t improved ROM: 1a. 0-130 degrees active L elbow flexion. 1b. 0-50 degrees active L sh abduction. 1c. 0-50 degrees active L sh flexion. 1d. 0-50 degrees active L wrist extension. GOALS MET Karolina will actively participate in additional standardized assessments to establish baseline. *MET 10/29/22 Talent Partner Goals 1. Karolina will demonstrate increased success with active incorporation of the left upper extremity in daily life. 1a. This will be evidenced by obtaining a score of 40.0 or less on the QuickDASH UE Outcome Measure. 1b. This will be evidenced by ability to complete 9-HPT with the left hand without physical assistance from the right hand. 2. Karolina will be modified independent with left upper extremity home exercise program utilizing provided written and visual instructions from therapist. - Exercises 4 Descriptor L UE Theraband Strengthening. Elbow extension. TB #2. 3 x 10 . Sh extension. TB #1. 3 x 10. Seated row/Scapular retraction . TB #2. 3 x 10. ER w/ TT support. 3 x 10. N/A 11/15/22 Hor sh abd w/ TT support. TB #1. 2 x 10. 2 Descriptor Pushing pulling of weighted crate on mat. x 5# DB in crate . 1 x 15. 1 Descriptor Tone Management/Weight bearing /Supporting of body weight Seated pushing up off of handles B. 2 x 10. Seated scoot L <-> R w/ handles 1 x 10. Standing at mat supporting body weight. Forward back. Alt arm lift to encourage elbow ext/WB L UE. Use of dycem. 1 x 10 each exercise. Seated forearm WB and pushing w/ elbow ext. 1 x 10. Transitioned to pushing off of mat. 1 x 10. - Assessment Assessment of Improvement Focus on functional weight bearing/support of body/upper body strengthening relative to elbow extension; decreased trust of supporting body weight/self of the L UE. Inconsistent w/ ability to maintain elbow extension w/ weight bearing. (+) response to pushing/pulling weighted crate. Recommend finding additional exercises that are similar to this one. Overall, good session. Outpatient occupational therapy is recommended to address L UE weakness, coordination/motor planning, object manipulation and activity tolerance to support Karolina's success with active incorporation of the left, non -dominant side with completion of meaningful activities in a variety of environments. Will need to monitor concerns re: memory/concentration to determine if Karolina would likely benefit from BEE BREEDER outpatient referral. Home Exercise Program Provided dycem square for L UE to support ability to execute quadriped weight bearing exercises at floor level. Opposition slides (pad --> base of finger and base of finger --> pad). Education re: stabilization of L forearm to discourage L sh elevation and support distal UE object manipulation. Discussion re: functional weight bearing of UE/hands positioned to sides of body and lifting 'bottom' off of seat. - Plan Therapy Recommendations Continue with Current Program, Advance per Rehabilitation Protocol
--- NOTE | 2022-11-23 11:02 | OT.OP.TRT ---
Visit Care Team Role Provider Type Xiomara Diego DO Attending Provider Physician Family Provider Primary Care Provider Referring Provider Specialty: Family Practice Address: [address] [place] [address], [facility], [place], [address] Email: [email or web address] Occupational Therapy Treatment Note OT Outpatient Treatment Note - Adult Start: 10/26/22 08:26 Freq: Status: Active Protocol: Document 11/23/22 10:53 AMS (Rec: 11/23/22 11:02 AMS [id number]) OT Outpatient Adult Treatment Note Session Time Visit Start Time 09:30 Visit Stop Time 10:15 Total Visit Minutes 45 Visit Information Visit Number 03/07 Plan of Care Dates 10/25/22 - 01/17/23 Insurance Information AARP Medicare; no pre-auth; therapist only Setting Treatment Setting Outpatient Care Visit Type Note Type Treatment Note General Information General Information Patient is a 66 year-old female referred to outpatient OT by PCP secondary to residual deficits of the left side secondary to ischemic CVA . PMH: Significant for depression; diabetes mellitus; essential hypertension; ventricular tachycardia; hyperlipidemia; type [address] Scan of Head w/ and without contrast performed 08/12/22; impression was as follows - resolution of previously described right subdural and subarachnoid hemorrhage w/ no abnormal enhancement w/ osteolytic right frontal calvarial lesion slightly enlarged compared to 12/16/20; atrophy, chronic ischemic change and old right temporal cortical and right thalamic lacunar infarcts. Karolina reports having fall in June 2022 w/ fracturing of skull and subsequent airlift and hospitalization at [facility] x 10 days. Since fall, Karolina reports dizziness, decreased motivation, weakness /loss of abilities of the L UE and arm, and fatigue. She is being seen by an ENT and will be evaluated for PT to address dizziness; positional changes tend to lead to dizziness per Karolina. - Subjective Identification Type Name Identification Reconciled With Medical Record Observations Karolina was seen 1:1 for OT treatment session. Concern voiced re: weakness of the L UE. Preference = Karolina. *Karen has been assisting w/ carry-over of exercises. Grandchildren = Bianka and Ricardo Patient/Caregiver Compliance with Home Good Exercise Program Comment w/ support - Objective Objective Measurements Please refer to below for progress towards meeting established OT goals. Short Term Goals 1. Karolina will have increased success with active incorporation of the left upper extremity d/t improved ROM: 1a. 0-130 degrees active L elbow flexion. 1b. 0-50 degrees active L sh abduction. 1c. 0-50 degrees active L sh flexion. 1d. 0-50 degrees active L wrist extension. GOALS MET Karolina will actively participate in additional standardized assessments to establish baseline. *MET 10/29/22 Skilled Nursing Goals 1. Karolina will demonstrate increased success with active incorporation of the left upper extremity in daily life. 1a. This will be evidenced by obtaining a score of 40.0 or less on the QuickDASH UE Outcome Measure. 1b. This will be evidenced by ability to complete 9-HPT with the left hand without physical assistance from the right hand. 2. Karolina will be modified independent with left upper extremity home exercise program utilizing provided written and visual instructions from therapist. - Exercises 2 Descriptor Pushing pulling of weighted crate. Completed on bedside table in sitting. 6# of weight positioned in crate. 1 x 20. 1 Descriptor Tone Management/Weight bearing /Supporting of body weight. Use of parallel bars. Modified push-ups in standing at horizontal bar. Hands positioned shoulder width apart. 2 x 10. L <-> R weight shifting while in standing between parallel bars; each hand grasping ipsilateral parallel bar. Widest width. 2 x 10. Grasping of parallel bar w/ forearm in supination w/ pushing <-> pulling self. 2 x 10. L UE only. - Assessment Assessment of Improvement Verbalization of concern re: L UE weakness; positive response to parallel bar work. Karolina to identify location in the home to complete these exercises (relative to push- ups/pushing and pulling). Discussed practicing of different grasp patterns of the L hand (forearm in different positions) to support functional motor planning. Difficulty weight bearing through the distal L UE in quadriped. Overall, good session. Outpatient occupational therapy is recommended to address L UE weakness, coordination/motor planning, object manipulation and activity tolerance to support Karolina's success with active incorporation of the left, non -dominant side with completion of meaningful activities in a variety of environments. Will need to monitor concerns re: memory/concentration to determine if Karolina would likely benefit from DEPUTY SHERIFF/INVESTIGATOR outpatient referral. Home Exercise Program Provided chris gonzales for L UE to support ability to execute quadriped weight bearing exercises at floor level. Opposition slides (pad --> base of finger and base of finger --> pad). Education re: stabilization of L forearm to discourage L sh elevation and support distal UE object manipulation. Discussion re: functional weight bearing of UE/hands positioned to sides of body and lifting 'bottom' off of seat. - Plan Therapy Recommendations Continue with Current Program, Advance per Rehabilitation Protocol
--- NOTE | 2022-12-20 11:42 | OT.OP.TRT ---
Visit Care Team Role Provider Type Xiomara Diego DO Attending Provider Physician Family Provider Primary Care Provider Referring Provider Specialty: Family Practice Address: [address] [place] [address], [place] [address], [place], [address] Email: [email or web address] Occupational Therapy Treatment Note OT Outpatient Treatment Note - Adult Start: 10/26/22 08:26 Freq: Status: Active Protocol: Document 12/20/22 11:38 AMS (Rec: 12/20/22 11:42 AMS [id number]) OT Outpatient Adult Treatment Note Session Time Visit Start Time 09:30 Visit Stop Time 10:15 Total Visit Minutes 45 Visit Information Visit Number 04/07 Plan of Care Dates 10/25/22 - 01/17/23 Insurance Information A[employer] Medicare; no pre-auth; therapist only Setting Treatment Setting Outpatient Care Visit Type Note Type Treatment Note General Information General Information Patient is a 66 year-old female referred to outpatient OT by PCP secondary to residual deficits of the left side secondary to ischemic CVA . PMH: Significant for depression; diabetes mellitus; essential hypertension; ventricular tachycardia; hyperlipidemia; type [address] Scan of Head w/ and without contrast performed 08/12/22; impression was as follows - resolution of previously described right subdural and subarachnoid hemorrhage w/ no abnormal enhancement w/ osteolytic right frontal calvarial lesion slightly enlarged compared to 12/16/20; atrophy, chronic ischemic change and old right temporal cortical and right thalamic lacunar infarcts. Karolina reports having fall in June 2022 w/ fracturing of skull and subsequent airlift and hospitalization at [facility] x 10 days. Since fall, Karolina reports dizziness, decreased motivation, weakness /loss of abilities of the L UE and arm, and fatigue. She is being seen by an ENT and will be evaluated for PT to address dizziness; positional changes tend to lead to dizziness per Karolina. - Subjective Identification Type Name Identification Reconciled With Medical Record Observations Karolina was seen 1:1 for OT treatment session. Concern voiced re: weakness of the L UE. Preference = Karolina. *Karen has been assisting w/ carry-over of exercises. Grandchildren = Bianka and Ricardo Patient/Caregiver Compliance with Home Good Exercise Program Comment w/ support - Objective Objective Measurements Please refer to below for progress towards meeting established OT goals. Short Term Goals 1. Karolina will have increased success with active incorporation of the left upper extremity d/t improved ROM: 1a. 0-130 degrees active L elbow flexion. 1b. 0-50 degrees active L sh abduction. 1c. 0-50 degrees active L sh flexion. 1d. 0-50 degrees active L wrist extension. GOALS MET Karolina will actively participate in additional standardized assessments to establish baseline. *MET 10/29/22 Correction Goals 1. Karolina will demonstrate increased success with active incorporation of the left upper extremity in daily life. 1a. This will be evidenced by obtaining a score of 40.0 or less on the QuickDASH UE Outcome Measure. 1b. This will be evidenced by ability to complete 9-HPT with the left hand without physical assistance from the right hand. 2. Karolina will be modified independent with left upper extremity home exercise program utilizing provided written and visual instructions from therapist. - Exercises 3 Descriptor Use of UE strengthening equipment. Bilateral seated row. 20#. 3 x 10. Bilateral lat pulldown. 20#. 2 x 10. Bilateral sh/elbow extension w / use of bar. 20#. 2 x 10. Alternating tricep extension. 10#. 2 x 10. Min phys assist L UE. 2 Descriptor Pushing pulling of weighted crate. Completed on bedside table in sitting. 7# of weight positioned in crate. 1 x 20. 1 Descriptor Tone Management/Weight bearing /Supporting of body weight. Use of parallel bars. Modified push-ups in standing at horizontal bar. Hands positioned shoulder width apart. 2 x 10. L <-> R weight shifting while in standing between parallel bars; each hand grasping ipsilateral parallel bar. Widest width. 2 x 10. Grasping of parallel bar w/ forearm in supination w/ pushing <-> pulling self. 2 x 10. L UE only. - Assessment Assessment of Improvement Verbalization of concern re: L UE weakness. Thus, continued w/ parallel bar work, as well as utilized UE gym strengthening equipment. Trialed use of peanutball to support quadriped push-ups. Overall, good session. Outpatient occupational therapy is recommended to address L UE weakness, coordination/motor planning, object manipulation and activity tolerance to support Karolina's success with active incorporation of the left, non -dominant side with completion of meaningful activities in a variety of environments. Will need to monitor concerns re: memory/concentration to determine if Karolina would likely benefit from FRAME TENDER outpatient referral. Home Exercise Program Provided dycem square for L UE to support ability to execute quadriped weight bearing exercises at floor level. Opposition slides (pad --> base of finger and base of finger --> pad). Education re: stabilization of L forearm to discourage L sh elevation and support distal UE object manipulation. Discussion re: functional weight bearing of UE/hands positioned to sides of body and lifting 'bottom' off of seat. - Plan Therapy Recommendations Continue with Current Program, Advance per Rehabilitation Protocol
--- NOTE | 2023-03-07 12:18 | OT.OP.DC ---
Visit Care Team Role Provider Type Xiomara Diego DO Attending Provider Physician Family Provider Primary Care Provider Referring Provider Address: [address] [place] [address], [place], [address] Email: [email or web address] Outpatient OT Outpatient Adult Evaluation Start: 10/26/22 08:26 Freq: Status: Active Protocol: Document 10/25/22 15:30 AMS (Rec: 10/26/22 09:43 AMS [id number]) General Information - Adult Visit Information Visit Number 09/07 Plan of Care Dates 10/25/22 - 01/17/23 Insurance Information AARP Medicare; no pre-auth; therapist only Session Time Visit Start Time 10:30 Visit Stop Time 11:15 Total Visit Minutes 45 Setting Treatment Setting Outpatient Care Visit Type Note Type Initial Evaluation Identification Identification Confirmed Yes Identification Confirmed By Patient Goals Treatment Treatment Reviewed L UE functional range of motion options. Discussed goals and plan of care. Short Term Goals Short Term Goals 1. Karolina will have increased success with active incorporation of the left upper extremity d/t improved ROM: 1a. 0-130 degrees active L elbow flexion. 1b. 0-50 degrees active L sh abduction. 1c. 0-50 degrees active L sh flexion. 1d. 0-50 degrees active L wrist extension. 2. Karolina will actively participate in additional standardized assessments to establish baseline. Penitentiary Goals Visor Installer Goals 1. Karolina will demonstrate increased success with active incorporation of the left upper extremity in daily life. 1a. This will be evidenced by obtaining a score of 40.0 or less on the QuickDASH UE Outcome Measure. 2. Karolina will be modified independent with left upper extremity home exercise program utilizing provided written and visual instructions from therapist. Assessment/Plan Assessment Treatment Assessment Patient is a 66 year-old female referred to outpatient OT by PCP secondary to residual deficits of the left side secondary to ischemic CVA . PMH: Significant for depression; diabetes mellitus; essential hypertension; ventricular tachycardia; hyperlipidemia; type [address] Scan of Head w/ and without contrast performed 08/12/22; impression was as follows - resolution of previously described right subdural and subarachnoid hemorrhage w/ no abnormal enhancement w/ osteolytic right frontal calvarial lesion slightly enlarged compared to 12/16/20; atrophy, chronic ischemic change and old right temporal cortical and right thalamic lacunar infarcts. Karolina reports having fall in June 2022 w/ fracturing of skull and subsequent airlift and hospitalization at [facility] x 10 days. Since fall, Karolina reports dizziness, decreased motivation, weakness /loss of abilities of the L UE and arm, and fatigue. She is being seen by an ENT and will be evaluated for PT to address dizziness; positional changes tend to lead to dizziness per Karolina. Patient Goals = improve function of left UE; address ROM/abilities of the L hand Evaluation Findings = Karolina presented ambulating w/ SPC w/ L orthosis to address foot drop; report of not driving. Friend assisting her w/ commute to and from medical appointments approx 2 times per week. Karolina is not cooking at this time and recently started going upstairs and assisting w/ laundry (outside of folding it given reported coordination difficulties). Karolina is using music glove x 30 minutes, 3 to 4 times per week. Karolina reports difficulties w/ memory and contrentation; she was oriented to date and arrived on time to appointment and did not need assistance w/ locating exit of outpatient clinic; she was also able to complete QuickDASH UE Outcome Measure and Pain Assessments on own without assist from therapist. No c/o pain in L hand/wrist; indication of 1/10 on Pain Assessment Grid relative to L scapular region. QuickDASH UE Outcome Measure Score = 56.82. Decreased L UE AROM. Decreased in-hand manipulation/coordination of the left hand; able to oppose L thumb to each digit pad w/ increased difficulty opposing to 5th digit. Outpatient occupational therapy is recommended to address L UE weakness, coordination/motor planning, object manipulation and activity tolerance to support Karolina's success with active incorporation of the left, non -dominant side with completion of meaningful activities in a variety of environments. Will need to monitor concerns re: memory/concentration to determine if Karolina would likely benefit from VULCAN[facility] outpatient referral. Plan Length of treatment (weeks) 12 Plan of Care Start Date 10/25/22 Plan of Care End Date 01/17/23 Comment 1-2 times per week Therapeutic Contents Active Range of Motion, Adaptive Equipment Education, Client Education,Cognitive Skills Development,Functional Activities,Home Exercise Program,Joint Protection, Manual Therapy,Education, Neurodevelopment Treatment, Neuromuscular Re-Education, Self-Care,Stretching/ Flexibility Activities, Therapeutic Activities, Therapeutic Exercises, Modalities,Sensory Re- education Modalities As Needed,As Prescribed Types of Modalities E-Stim,Ultrasound Additional Types of Modalities Heat/Cold/Paraffin Functional Wrist/Hand Scan Hand Side Sensory Assessment Sensory Profile2 OT Outpatient Muscle Testing Start: 10/26/22 08:26 Freq: Status: Active Protocol: Document 10/29/22 11:28 AMS (Rec: 10/29/22 11:46 AMS [id number]) Hospital Receiving Clerk/Hand Strength Hospital Receiving Clerk/Hand Strength Left Hospital Receiving Clerk Dynamometer II 12.0 Lateral Pinch Strengh (lbs) 6.0 Palmar Pinch Strength (lbs) 3.0 Tip Pinch Strength (lbs) 2.5 Comments Results 10/25/22 = 03/26/21= Left Dynamometer Hospital Receiving Clerk II = 10.0# of force; Left Lateral Pinch = 5.5# of force Right Hospital Receiving Clerk Dynamometer II 37.0 OT Outpatient Range of Motion Start: 10/26/22 08:26 Freq: Status: Active Protocol: Document 10/29/22 11:28 AMS (Rec: 10/29/22 11:46 AMS [id number]) ROM - Shoulder Shoulder Left Shoulder Flex AROM (degrees) 35 Shoulder Ext AROM (degrees) 30 Shoulder Abd AROM (degrees) 35 Shoulder IR AROM (degrees) WFL Shoulder ER AROM (degrees) 20 Comments 10/25/22 Measurements ROM - Elbow/Forearm Elbow/Forearm Measured in Degrees Left Elbow Flex AROM (degrees) 115 Elbow Ext AROM (degrees) WNL Forearm Pron AROM (degrees) WNL Forearm Sup AROM (degrees) 75 ROM - Wrist Wrist Range of Motion Measured in Degrees Left Wrist Flex AROM (degrees) 45 Wrist Ext AROM Fingers Open (degrees) 40 Ulnar Deviation AROM (degrees) 20 Radial Deviation AROM (degrees) 10 OT Outpatient Treatment Note - Adult Start: 10/26/22 08:26 Freq: Status: Active Protocol: Document 03/07/23 12:15 AMS (Rec: 03/07/23 12:18 AMS [id number]) OT Outpatient Adult Treatment Note Visit Information Visit Number 810 Plan of Care Dates 10/25/22 - 01/17/23 Insurance Information AARP Medicare; no pre-auth; therapist only Setting Treatment Setting Outpatient Care Visit Type Note Type Discharge Summary - Subjective Observations Karolina has not been seen in outpatient OT since 12/20/22 and POC 01/17/23. Thus, recommend d/c from outpatient OT at this time and therapist to re-evaluate as deemed appropriate per PCP. - Objective Objective Measurements Please refer to below for progress towards meeting established OT goals. Short Term Goals ALL GOALS D/C 03/07/23 1. Karolina will have increased success with active incorporation of the left upper extremity d/t improved ROM: 1a. 0-130 degrees active L elbow flexion. 1b. 0-50 degrees active L sh abduction. 1c. 0-50 degrees active L sh flexion. 1d. 0-50 degrees active L wrist extension. GOALS MET Karolina will actively participate in additional standardized assessments to establish baseline. *MET 10/29/22 Penitentiary Goals ALL GOALS D/C 03/07/23 1. Karolina will demonstrate increased success with active incorporation of the left upper extremity in daily life. 1a. This will be evidenced by obtaining a score of 40.0 or less on the QuickDASH UE Outcome Measure. 1b. This will be evidenced by ability to complete 9-HPT with the left hand without physical assistance from the right hand. 2. Karolina will be modified independent with left upper extremity home exercise program utilizing provided written and visual instructions from therapist. - - Assessment Assessment of Improvement Karolina has not been seen in outpatient OT since 12/20/22 and POC 01/17/23. Thus, recommend d/c from outpatient OT at this time and therapist to re-evaluate as deemed appropriate per PCP. - Plan Therapy Recommendations Discharge from Occupational Therapy
== END 2023-03-08 10:12 | disposition home or self-care (01) ==
LOC: OT 09:30
PROVIDERS: Family Provider Family Medicine; PCP Family Medicine; Referring Provider Family Medicine; Visit Provider Family Medicine
DX: I63.9 Cerebral infarction, unspecified (principal); R53.1 Weakness; R27.8 Other lack of coordination
CPT/HCPCS: 97032; 97110; 97112; 97166; 97530

== ENCOUNTER 2023-01-27 12:45 | Outpatient (RCR) | payer MEDICARE, SELFPAY ==
[2020-12-16 06:20] VITALS: BMI 25.4
--- NOTE | 2022-12-06 18:06 | PT.OIE ---
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 (12/06/22) Muscle weakness (generalized) (12/06/22) Unsteadiness on feet (12/06/22) Other abnormalities of gait and mobility (12/06/22) Repeated falls (12/06/22) Past Medical History (Last Reviewed 11/29/22 @ 15:20 by Xiomara Diego DO) Cerebrovascular accident Depression Diabetes mellitus Essential hypertension History of ventricular tachycardia Hyperlipidemia Subarachnoid hemorrhage Subdural hematoma SVT (supraventricular tachycardia) (06/07/12) Type 2 diabetes mellitus without complication (05/21/16) Past Surgical History (Last Reviewed 11/29/22 @ 15:20 by Xiomara Diego DO) Status post delivery (~1983) Status post delivery (~1985) Status post delivery (~1987) Status post cholecystectomy (~2013) Visit Care Team Role Provider Type Xiomara Diego DO Attending Provider Physician Family Provider Primary Care Provider Referring Provider Specialty: Major Hospital Address: [address] [place] [address] Email: [email or web address] Physical Therapy Initial Evaluation PT-OP-A Visit Information Start: 12/06/22 17:32 Freq: Status: Active Protocol: Document 12/06/22 12:10 DCW (Rec: 12/06/22 18:06 DCW [id number]) Out-Patient Physical Therapy Visit Information Visit Information Visit Type Initial Evaluation Visit Start Time 12:10 Visit Stop Time 12:45 Total Visit Minutes 35 Visit Number 1 Number of COUNCILOR Visits 0 Evaluation Information Evaluation Date 12/06/22 PT-OP-B Current Condition Start: 12/06/22 17:32 Freq: Status: Active Protocol: Document 12/06/22 12:10 DCW (Rec: 12/06/22 18:06 DCW [id number]) Current Condition History of Current Condition Onset Date 07/07/22 Current Complaints Weakness, gait difficulty, falls s/p CVA, subarachnoid hemorrhage History of Current Condition Pt is a 67 year old female well known to this clinic presenting with a complicated medical history. Previously, pt suffered a thalamic CVA on 12/16/20, with hemiplegia affecting her left side. Pt worked very hard at that time with PT in this clinic, and was discharged after plateauing in progress. Pt was at the point where she was much more independent, ambulating using a L AFO but minimal use of assistive devices, and had returned to driving. Unfortunately, on 07/07/22, pt had an unwitnessed fall outside while at home, when she did not arrive to orange picker her son, he walked to her house, taking more than one hour, and found pt unconsious and hypothermic. Pt was brought to the ED, found to have a subarachnoid hemorrhage and skull fracture. Pt was transferred to [place], where she was admitted for 10 days, treated non- surgically, and then discharged home. Pt then received home health until August, when she was discharged to out-patient. Pt comes in today noting that she feels this has all just set me back two years. Notes that she doesn't seem to have any new symptoms, just her original post-CVA symptoms have been back to square one. Notes her hand is not as mobile, and her foot doesn't do much. Has difficulty advancing left foot during swing phase. Pt has returned to using an AFO, and in fact has a new AFO, which helps actively DF her left foot during gait. Treatment Goals Patient/Caregiver Goals I just want to be more independent. PT-OP-C Subjective Start: 12/06/22 17:32 Freq: Status: Active Protocol: Document 12/06/22 12:10 DCW (Rec: 12/06/22 18:06 DCW [id number]) OP-PT Subjective Patient Comments Patient Comments I'm feeling much more pessimistic this time around. I can't beleive I have to go through all this again. PT-OP-E Functional Tests Start: 12/06/22 17:32 Freq: Status: Active Protocol: Document 12/06/22 12:10 DCW (Rec: 12/06/22 18:06 DCW [id number]) Functional Tests 2 Minute Walk Test Distance 217' /s AFO, 281' /c AFO Device Used SPC Comments 1.81 ft/sec /s AFO, 2.34 ft/ sec /c AFO Timed Up and Go (TUG) Score 13.58 /c SPC, AFO Comments Three-trial Average (14.16, 13 .57, 13.01) TUG Impairment Rating 40 to <60% Impaired (Score 14- 15) PT-OP-G Mobility & Gait Start: 12/06/22 17:32 Freq: Status: Active Protocol: Document 12/06/22 12:10 DCW (Rec: 12/06/22 18:06 DCW [id number]) OP Gait Assessment Comments Gait Comments When not wearing AFO, pt ambulates with no active dorsiflexion, significant toe drop, performs left circumduction to clear foot, increased difficulty advancing left foot. Ambulates much better using new AFO, with DF assist, improved foot clearance, improved gait speed , decreased swing-phase difficulty PT-OP-M Strength Start: 12/06/22 17:32 Freq: Status: Active Protocol: Document 12/06/22 12:10 DCW (Rec: 12/06/22 18:06 DCW [id number]) Hip Strength Hip Manual Muscle Testing Left Flexion (L2) 3 Fair Extension (S1) 4- Good- Abduction 3 Fair Adduction 3 Fair External Rotation 3 Fair Internal Rotation 2+ Poor+ Right Flexion (L2) 4 Good Extension (S1) 4 Good Abduction 4 Good Adduction 4 Good External Rotation 5 Normal Internal Rotation 5 Normal Knee Strength Knee Manual Muscle Testing Left Flexion (S2) 4+ Good+ Extension (L3) 4+ Good+ Right Flexion (S2) 3- Fair- Extension (L3) 4- Good- Ankle/Foot Strength Ankle and Foot Manual Muscle Testing Left Dorsiflexion (L4) 2- Poor- Right Dorsiflexion (L4) 4+ Good+ PT-OP-T Assessment and Plan Start: 12/06/22 17:32 Freq: Status: Active Protocol: Document 12/06/22 12:10 DCW (Rec: 12/06/22 18:06 DCW [id number]) Physical Therapy Assessment Rehab Potential Rehabilitation Potential Good Evaluation Complexity Number of Personal Factors/Comorbidities 3 or More Number of Body Systems Impaired 4 or More Clinical Presentation at Evaluation Unstable Impairments Impairments Activity Tolerance,Balance, Functional Activities, Functional Mobility,Gait,Soft Tissue Mobility,Strength,Tone Other Concerns Barriers to Rehabilitation Long-standing history of CVA symptoms, recent SAH/skull fracture Goals Two Impairment Pt demonstrates significant L LE weakness in all planes Fdc Goal (LTG) Pt to increase MMT in all L LE planes (with exception of L DF) to at least 3+/5 in order to improve functional mobility and increase independence at home. LTG Duration 03/06/23 One Impairment Pt scores at an increased risk of falls, per TUG score (13. 58) Fdc Goal (LTG) Pt to improve TUG score while using SPC and AFO to less than 10 seconds over a three-trial average LTG Duration 01/25/23 Assessment Summary Assessment Pt presents with signs and symptoms consistent with referring diagnosis. Pt's symptoms are worse in severity compared to function at discharge following PT s/p CVA in 2020. Recent head trauma appears to have caused regression in left functional mobility and strength. Pt presenting with increased risk of falls, significant LE weakness, decreased activity tolerance. Pt is showing improved gait with new AFO. Pt should benefit from skilled therapy focusing on strength, functional mobility, gait, balance, and activity tolerance. Physical Therapy Plan Frequency and Duration Frequency of Treatment 2x/Week Plan of Care Start Date 12/06/22 Plan of Care End Date 03/06/23 Therapeutic Interventions Therapeutic Interventions Balance Training,Gait Training ,Home Exercise Program,Manual Therapy,Neuromuscular Re- education,Patient/Caregiver Education,Self-Care/Home Management,Soft Tissue Mobilization,Therapeutic Activities,Therapeutic Exercises Next Visit Focus/Plan Next Note Type Treatment Note Next Visit Plan LE strengthening, balance, activity tolerance, gait
--- NOTE | 2022-12-06 18:06 | PT.OPPOC ---
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 (12/06/22) Muscle weakness (generalized) (12/06/22) Unsteadiness on feet (12/06/22) Other abnormalities of gait and mobility (12/06/22) Repeated falls (12/06/22) Visit Care Team Role Provider Type Xiomara Diego DO Attending Provider Physician Family Provider Primary Care Provider Referring Provider Specialty: [facility] Address: [address] [place] [address], [id number] Email: [email or web address] Plan Of Care PT-OP-T Assessment and Plan Start: 12/06/22 17:32 Freq: Status: Active Protocol: Document 12/06/22 12:10 DCW (Rec: 12/06/22 18:06 DCW [id number]) Physical Therapy Assessment Rehab Potential Rehabilitation Potential Good Evaluation Complexity Number of Personal Factors/Comorbidities 3 or More Number of Body Systems Impaired 4 or More Clinical Presentation at Evaluation Unstable Impairments Impairments Activity Tolerance,Balance, Functional Activities, Functional Mobility,Gait,Soft Tissue Mobility,Strength,Tone Other Concerns Barriers to Rehabilitation Long-standing history of CVA symptoms, recent SAH/skull fracture Goals Two Impairment Pt demonstrates significant L LE weakness in all planes Nuclear Fuels Reclamation Engineer Goal (LTG) Pt to increase MMT in all L LE planes (with exception of L DF) to at least 3+/5 in order to improve functional mobility and increase independence at home. LTG Duration 03/06/23 One Impairment Pt scores at an increased risk of falls, per TUG score (13. 58) Nuclear Fuels Reclamation Engineer Goal (LTG) Pt to improve TUG score while using SPC and AFO to less than 10 seconds over a three-trial average LTG Duration 01/25/23 Assessment Summary Assessment Pt presents with signs and symptoms consistent with referring diagnosis. Pt's symptoms are worse in severity compared to function at discharge following PT s/p CVA in 2020. Recent head trauma appears to have caused regression in left functional mobility and strength. Pt presenting with increased risk of falls, significant LE weakness, decreased activity tolerance. Pt is showing improved gait with new AFO. Pt should benefit from skilled therapy focusing on strength, functional mobility, gait, balance, and activity tolerance. Physical Therapy Plan Frequency and Duration Frequency of Treatment 2x/Week Plan of Care Start Date 12/06/22 Plan of Care End Date 03/06/23 Therapeutic Interventions Therapeutic Interventions Balance Training,Gait Training ,Home Exercise Program,Manual Therapy,Neuromuscular Re- education,Patient/Caregiver Education,Self-Care/Home Management,Soft Tissue Mobilization,Therapeutic Activities,Therapeutic Exercises Next Visit Focus/Plan Next Note Type Treatment Note Next Visit Plan LE strengthening, balance, activity tolerance, gait Plan of Care Dates Plan of Care Start Date 12/06/22 Plan of Care End Date 03/06/23 Electronically Signed by: Singh Harris, PT 12/06/22 [id number] If you are in agreement with this Plan of Care, please return a signed and dated copy. I have reviewed this Plan of Care and certify that the skilled therapy services above are required to meet the patient?s needs. Physician Signature Date Printed Name and Credentials Clinical Instructor Signature Printed Name and Credentials
--- NOTE | 2022-12-08 12:44 | PT.OTN ---
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 (12/08/22) Muscle weakness (generalized) (12/08/22) Unsteadiness on feet (12/08/22) Other abnormalities of gait and mobility (12/08/22) Repeated falls (12/08/22) Physical Therapy Treatment Note PT-OP-A Visit Information Start: 12/06/22 17:32 Freq: Status: Active Protocol: Document 12/08/22 12:01 DCW (Rec: 12/08/22 12:44 DCW [id number]) Out-Patient Physical Therapy Visit Information Visit Information Visit Type Treatment Note Visit Start Time 12:01 Visit Stop Time 12:45 Total Visit Minutes 44 Visit Number 2 Number of SHINGLE CUTTER Visits 0 Evaluation Information Evaluation Date 12/06/22 PT-OP-B Current Condition Start: 12/06/22 17:32 Freq: Status: Active Protocol: Document 12/06/22 12:10 DCW (Rec: 12/06/22 18:06 DCW [id number]) Current Condition History of Current Condition Onset Date 07/07/22 Current Complaints Weakness, gait difficulty, falls s/p CVA, subarachnoid hemorrhage History of Current Condition Pt is a 67 year old female well known to this clinic presenting with a complicated medical history. Previously, pt suffered a thalamic CVA on 12/16/20, with hemiplegia affecting her left side. Pt worked very hard at that time with PT in this clinic, and was discharged after plateauing in progress. Pt was at the point where she was much more independent, ambulating using a L AFO but minimal use of assistive devices, and had returned to driving. Unfortunately, on 07/07/22, pt had an unwitnessed fall outside while at home, when she did not arrive to rock picker her son, he walked to her house, taking more than one hour, and found pt unconsious and hypothermic. Pt was brought to the ED, found to have a subarachnoid hemorrhage and skull fracture. Pt was transferred to [place], where she was admitted for 10 days, treated non- surgically, and then discharged home. Pt then received home health until August, when she was discharged to out-patient. Pt comes in today noting that she feels this has all just set me back two years. Notes that she doesn't seem to have any new symptoms, just her original post-CVA symptoms have been back to square one. Notes her hand is not as mobile, and her foot doesn't do much. Has difficulty advancing left foot during swing phase. Pt has returned to using an AFO, and in fact has a new AFO, which helps actively DF her left foot during gait. Treatment Goals Patient/Caregiver Goals I just want to be more independent. PT-OP-C Subjective Start: 12/06/22 17:32 Freq: Status: Active Protocol: Document 12/08/22 12:01 DCW (Rec: 12/08/22 12:44 DCW [id number]) OP-PT Subjective Patient Comments Patient Comments It's frustrating, we worked so hard to get me where I was, to the point I could discharge and was able to function. PT-OP-E Functional Tests Start: 12/06/22 17:32 Freq: Status: Active Protocol: Document 12/06/22 12:10 DCW (Rec: 12/06/22 18:06 DCW [id number]) Functional Tests 2 Minute Walk Test Distance 217' /s AFO, 281' /c AFO Device Used SPC Comments 1.81 ft/sec /s AFO, 2.34 ft/ sec /c AFO Timed Up and Go (TUG) Score 13.58 /c SPC, AFO Comments Three-trial Average (14.16, 13 .57, 13.01) TUG Impairment Rating 40 to <60% Impaired (Score 14- 15) PT-OP-G Mobility & Gait Start: 12/06/22 17:32 Freq: Status: Active Protocol: Document 12/06/22 12:10 DCW (Rec: 12/06/22 18:06 DCW [id number]) OP Gait Assessment Comments Gait Comments When not wearing AFO, pt ambulates with no active dorsiflexion, significant toe drop, performs left circumduction to clear foot, increased difficulty advancing left foot. Ambulates much better using new AFO, with DF assist, improved foot clearance, improved gait speed , decreased swing-phase difficulty PT-OP-M Strength Start: 12/06/22 17:32 Freq: Status: Active Protocol: Document 12/06/22 12:10 DCW (Rec: 12/06/22 18:06 DCW [id number]) Hip Strength Hip Manual Muscle Testing Left Flexion (L2) 3 Fair Extension (S1) 4- Good- Abduction 3 Fair Adduction 3 Fair External Rotation 3 Fair Internal Rotation 2+ Poor+ Right Flexion (L2) 4 Good Extension (S1) 4 Good Abduction 4 Good Adduction 4 Good External Rotation 5 Normal Internal Rotation 5 Normal Knee Strength Knee Manual Muscle Testing Left Flexion (S2) 4+ Good+ Extension (L3) 4+ Good+ Right Flexion (S2) 3- Fair- Extension (L3) 4- Good- Ankle/Foot Strength Ankle and Foot Manual Muscle Testing Left Dorsiflexion (L4) 2- Poor- Right Dorsiflexion (L4) 4+ Good+ PT-OP-Q Treatments Start: 12/06/22 17:32 Freq: Status: Active Protocol: Document 12/08/22 12:01 [facility] (Rec: 12/08/22 12:44 [facility] [id number]) Cardio Equipment Recumbent Elliptical (Biodex) Duration (Minutes) 6 Resistance 4 Seat Position 5 Gym Equipment Cable Column (Body Solid) Leg Curl Resistance 20# Leg Extension Resistance 10# Hip Adduction Resistance 30# Hip Abduction Resistance 20# Shuttle Recovery Bilateral Squats Resistance 75# Shuttle Recovery Platform Stable Unilateral Squats Resistance 25# Shuttle Recovery Platform Stable Therapeutic Exercises Other Exercises Sit to Stand Other Exercise Name StS x10 Neuro Re-Education Treatment Balance Activities NBOS Details Eyes closed Surface Firm Foam stance Details WBOS, NBOS Surface Blue foam Tandem stance Details Tandem stance Equipment @rail PT-OP-T Assessment and Plan Start: 12/06/22 17:32 Freq: Status: Active Protocol: Document 12/08/22 12:01 DC (Rec: 12/08/22 12:44 [facility] [id number]) Physical Therapy Assessment Impairments Impairments Activity Tolerance,Balance, Functional Activities, Functional Mobility,Gait,Soft Tissue Mobility,Strength,Tone Goals Two Impairment Pt demonstrates significant L LE weakness in all planes Industrial Management Teacher Goal (LTG) Pt to increase MMT in all L LE planes (with exception of L DF) to at least 3+/5 in order to improve functional mobility and increase independence at home. LTG Duration 03/06/23 One Impairment Pt scores at an increased risk of falls, per TUG score (13. 58) Industrial Management Teacher Goal (LTG) Pt to improve TUG score while using SPC and AFO to less than 10 seconds over a three-trial average LTG Duration 01/25/23 Assessment Summary Assessment Pt tolerated treatment well, clearly distressed overall that she has had this significant setback following her post-CVA rehab more than a year ago, but felt better after getting a start with hip strengthening and balance challenges. Physical Therapy Plan Frequency and Duration Frequency of Treatment 2x/Week Plan of Care Start Date 12/06/22 Plan of Care End Date 03/06/23 Therapeutic Interventions Therapeutic Interventions Balance Training,Gait Training ,Home Exercise Program,Manual Therapy,Neuromuscular Re- education,Patient/Caregiver Education,Self-Care/Home Management,Soft Tissue Mobilization,Therapeutic Activities,Therapeutic Exercises Next Visit Focus/Plan Next Note Type Treatment Note Next Visit Plan LE strengthening, balance, activity tolerance, gait
--- NOTE | 2022-12-15 12:44 | PT.OTN ---
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 (12/15/22) Muscle weakness (generalized) (12/15/22) Unsteadiness on feet (12/15/22) Other abnormalities of gait and mobility (12/15/22) Repeated falls (12/15/22) Physical Therapy Treatment Note PT-OP-A Visit Information Start: 12/06/22 17:32 Freq: Status: Active Protocol: Document 12/15/22 12:00 DCW (Rec: 12/15/22 12:44 DCW [id number]) Out-Patient Physical Therapy Visit Information Visit Information Visit Type Treatment Note Visit Start Time 12:00 Visit Stop Time 12:45 Total Visit Minutes 45 Visit Number 3 Number of MERCHANDISING DIRECTOR Visits 0 Evaluation Information Evaluation Date 12/06/22 PT-OP-B Current Condition Start: 12/06/22 17:32 Freq: Status: Active Protocol: Document 12/06/22 12:10 DCW (Rec: 12/06/22 18:06 DCW [id number]) Current Condition History of Current Condition Onset Date 07/07/22 Current Complaints Weakness, gait difficulty, falls s/p CVA, subarachnoid hemorrhage History of Current Condition Pt is a 67 year old female well known to this clinic presenting with a complicated medical history. Previously, pt suffered a thalamic CVA on 12/16/20, with hemiplegia affecting her left side. Pt worked very hard at that time with PT in this clinic, and was discharged after plateauing in progress. Pt was at the point where she was much more independent, ambulating using a L AFO but minimal use of assistive devices, and had returned to driving. Unfortunately, on 07/07/22, pt had an unwitnessed fall outside while at home, when she did not arrive to chart picker her son, he walked to her house, taking more than one hour, and found pt unconsious and hypothermic. Pt was brought to the ED, found to have a subarachnoid hemorrhage and skull fracture. Pt was transferred to [place], where she was admitted for 10 days, treated non- surgically, and then discharged home. Pt then received home health until August, when she was discharged to out-patient. Pt comes in today noting that she feels this has all just set me back two years. Notes that she doesn't seem to have any new symptoms, just her original post-CVA symptoms have been back to square one. Notes her hand is not as mobile, and her foot doesn't do much. Has difficulty advancing left foot during swing phase. Pt has returned to using an AFO, and in fact has a new AFO, which helps actively DF her left foot during gait. Treatment Goals Patient/Caregiver Goals I just want to be more independent. PT-OP-C Subjective Start: 12/06/22 17:32 Freq: Status: Active Protocol: Document 12/15/22 12:00 DCW (Rec: 12/15/22 12:44 DCW [id number]) OP-PT Subjective Patient Comments Patient Comments Pt doing well today, no complaints, no changes to note . PT-OP-E Functional Tests Start: 12/06/22 17:32 Freq: Status: Active Protocol: Document 12/06/22 12:10 DCW (Rec: 12/06/22 18:06 DCW [id number]) Functional Tests 2 Minute Walk Test Distance 217' /s AFO, 281' /c AFO Device Used SPC Comments 1.81 ft/sec /s AFO, 2.34 ft/ sec /c AFO Timed Up and Go (TUG) Score 13.58 /c SPC, AFO Comments Three-trial Average (14.16, 13 .57, 13.01) TUG Impairment Rating 40 to <60% Impaired (Score 14- 15) PT-OP-G Mobility & Gait Start: 12/06/22 17:32 Freq: Status: Active Protocol: Document 12/06/22 12:10 DCW (Rec: 12/06/22 18:06 DCW [id number]) OP Gait Assessment Comments Gait Comments When not wearing AFO, pt ambulates with no active dorsiflexion, significant toe drop, performs left circumduction to clear foot, increased difficulty advancing left foot. Ambulates much better using new AFO, with DF assist, improved foot clearance, improved gait speed , decreased swing-phase difficulty PT-OP-M Strength Start: 12/06/22 17:32 Freq: Status: Active Protocol: Document 12/06/22 12:10 DCW (Rec: 12/06/22 18:06 DCW [id number]) Hip Strength Hip Manual Muscle Testing Left Flexion (L2) 3 Fair Extension (S1) 4- Good- Abduction 3 Fair Adduction 3 Fair External Rotation 3 Fair Internal Rotation 2+ Poor+ Right Flexion (L2) 4 Good Extension (S1) 4 Good Abduction 4 Good Adduction 4 Good External Rotation 5 Normal Internal Rotation 5 Normal Knee Strength Knee Manual Muscle Testing Left Flexion (S2) 4+ Good+ Extension (L3) 4+ Good+ Right Flexion (S2) 3- Fair- Extension (L3) 4- Good- Ankle/Foot Strength Ankle and Foot Manual Muscle Testing Left Dorsiflexion (L4) 2- Poor- Right Dorsiflexion (L4) 4+ Good+ PT-OP-Q Treatments Start: 12/06/22 17:32 Freq: Status: Active Protocol: Document 12/15/22 12:00 DCW (Rec: 12/15/22 12:44 DCW [id number]) Cardio Equipment Recumbent Elliptical (Biodex) Duration (Minutes) 6 Resistance 4 Seat Position 5 Gym Equipment Cable Column (Body Solid) Leg Curl Resistance 20# Leg Extension Resistance 10# Hip Adduction Resistance 30# Hip Abduction Resistance 20# Shuttle Recovery Bilateral Squats Resistance 75# Shuttle Recovery Platform Stable Unilateral Squats Resistance 37# R, 25# L Shuttle Recovery Platform Stable Shuttle Balance Red Details WBOS (EO/EC), Staggered PT-OP-T Assessment and Plan Start: 12/06/22 17:32 Freq: Status: Active Protocol: Document 12/15/22 12:00 DCW (Rec: 12/15/22 12:44 DCW [id number]) Physical Therapy Assessment Impairments Impairments Activity Tolerance,Balance, Functional Activities, Functional Mobility,Gait,Soft Tissue Mobility,Strength,Tone Goals Two Impairment Pt demonstrates significant L LE weakness in all planes Assisted Goal (LTG) Pt to increase MMT in all L LE planes (with exception of L DF) to at least 3+/5 in order to improve functional mobility and increase independence at home. LTG Duration 03/06/23 One Impairment Pt scores at an increased risk of falls, per TUG score (13. 58) Manager Net Goal (LTG) Pt to improve TUG score while using SPC and AFO to less than 10 seconds over a three-trial average LTG Duration 01/25/23 Assessment Summary Assessment Pt in a much more optimistic mood today, tolerated exercises well, not quite ready for increased resistance with most activities. Did do well with Shuttle Balance, felt more comfortable on it than when she was previously treated here more than a year ago. Physical Therapy Plan Frequency and Duration Frequency of Treatment 2x/Week Plan of Care Start Date 12/06/22 Plan of Care End Date 03/06/23 Therapeutic Interventions Therapeutic Interventions Balance Training,Gait Training ,Home Exercise Program,Manual Therapy,Neuromuscular Re- education,Patient/Caregiver Education,Self-Care/Home Management,Soft Tissue Mobilization,Therapeutic Activities,Therapeutic Exercises Next Visit Focus/Plan Next Note Type Treatment Note Next Visit Plan LE strengthening, balance, activity tolerance, gait
--- NOTE | 2022-12-22 12:44 | PT.OTN ---
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 (12/22/22) Muscle weakness (generalized) (12/22/22) Unsteadiness on feet (12/22/22) Other abnormalities of gait and mobility (12/22/22) Repeated falls (12/22/22) Physical Therapy Treatment Note PT-OP-A Visit Information Start: 12/06/22 17:32 Freq: Status: Active Protocol: Document 12/22/22 12:04 DCW (Rec: 12/22/22 12:44 DCW [id number]) Out-Patient Physical Therapy Visit Information Visit Information Visit Type Treatment Note Visit Start Time 12:04 Visit Stop Time 12:45 Total Visit Minutes 41 Visit Number 4 Number of DESKIDDING MACHINE OPERATOR Visits 0 Evaluation Information Evaluation Date 12/06/22 PT-OP-B Current Condition Start: 12/06/22 17:32 Freq: Status: Active Protocol: Document 12/06/22 12:10 DCW (Rec: 12/06/22 18:06 DCW [id number]) Current Condition History of Current Condition Onset Date 07/07/22 Current Complaints Weakness, gait difficulty, falls s/p CVA, subarachnoid hemorrhage History of Current Condition Pt is a 67 year old female well known to this clinic presenting with a complicated medical history. Previously, pt suffered a thalamic CVA on 12/16/20, with hemiplegia affecting her left side. Pt worked very hard at that time with PT in this clinic, and was discharged after plateauing in progress. Pt was at the point where she was much more independent, ambulating using a L AFO but minimal use of assistive devices, and had returned to driving. Unfortunately, on 07/07/22, pt had an unwitnessed fall outside while at home, when she did not arrive to machine pecan picker her son, he walked to her house, taking more than one hour, and found pt unconsious and hypothermic. Pt was brought to the ED, found to have a subarachnoid hemorrhage and skull fracture. Pt was transferred to [place], where she was admitted for 10 days, treated non- surgically, and then discharged home. Pt then received home health until August, when she was discharged to out-patient. Pt comes in today noting that she feels this has all just set me back two years. Notes that she doesn't seem to have any new symptoms, just her original post-CVA symptoms have been back to square one. Notes her hand is not as mobile, and her foot doesn't do much. Has difficulty advancing left foot during swing phase. Pt has returned to using an AFO, and in fact has a new AFO, which helps actively DF her left foot during gait. Treatment Goals Patient/Caregiver Goals I just want to be more independent. PT-OP-C Subjective Start: 12/06/22 17:32 Freq: Status: Active Protocol: Document 12/22/22 12:04 DCW (Rec: 12/22/22 12:44 DCW [id number]) OP-PT Subjective Patient Comments Patient Comments Pt feeling fairly well overall today. PT-OP-E Functional Tests Start: 12/06/22 17:32 Freq: Status: Active Protocol: Document 12/06/22 12:10 DCW (Rec: 12/06/22 18:06 DCW [id number]) Functional Tests 2 Minute Walk Test Distance 217' /s AFO, 281' /c AFO Device Used SPC Comments 1.81 ft/sec /s AFO, 2.34 ft/ sec /c AFO Timed Up and Go (TUG) Score 13.58 /c SPC, AFO Comments Three-trial Average (14.16, 13 .57, 13.01) TUG Impairment Rating 40 to <60% Impaired (Score 14- 15) PT-OP-G Mobility & Gait Start: 12/06/22 17:32 Freq: Status: Active Protocol: Document 12/06/22 12:10 DCW (Rec: 12/06/22 18:06 DCW [id number]) OP Gait Assessment Comments Gait Comments When not wearing AFO, pt ambulates with no active dorsiflexion, significant toe drop, performs left circumduction to clear foot, increased difficulty advancing left foot. Ambulates much better using new AFO, with DF assist, improved foot clearance, improved gait speed , decreased swing-phase difficulty PT-OP-M Strength Start: 12/06/22 17:32 Freq: Status: Active Protocol: Document 12/06/22 12:10 DCW (Rec: 12/06/22 18:06 DCW [id number]) Hip Strength Hip Manual Muscle Testing Left Flexion (L2) 3 Fair Extension (S1) 4- Good- Abduction 3 Fair Adduction 3 Fair External Rotation 3 Fair Internal Rotation 2+ Poor+ Right Flexion (L2) 4 Good Extension (S1) 4 Good Abduction 4 Good Adduction 4 Good External Rotation 5 Normal Internal Rotation 5 Normal Knee Strength Knee Manual Muscle Testing Left Flexion (S2) 4+ Good+ Extension (L3) 4+ Good+ Right Flexion (S2) 3- Fair- Extension (L3) 4- Good- Ankle/Foot Strength Ankle and Foot Manual Muscle Testing Left Dorsiflexion (L4) 2- Poor- Right Dorsiflexion (L4) 4+ Good+ PT-OP-Q Treatments Start: 12/06/22 17:32 Freq: Status: Active Protocol: Document 12/22/22 12:04 DCW (Rec: 12/22/22 12:44 DCW [id number]) Cardio Equipment Recumbent Elliptical (Biodex) Duration (Minutes) 6 Resistance 4 Seat Position 5 Gym Equipment Shuttle Recovery Bilateral Squats Resistance 75# Shuttle Recovery Platform Stable Unilateral Squats Resistance 37# R, 25# L Shuttle Recovery Platform Stable Shuttle Balance Red Details WBOS (EO/EC), Staggered Neuro Re-Education Treatment Balance Activities Hurdles Details Hurdles/Foam Tandem stance Details Tandem stance Equipment @rail PT-OP-T Assessment and Plan Start: 12/06/22 17:32 Freq: Status: Active Protocol: Document 12/22/22 12:04 DCW (Rec: 12/22/22 12:44 DCW [id number]) Physical Therapy Assessment Impairments Impairments Activity Tolerance,Balance, Functional Activities, Functional Mobility,Gait,Soft Tissue Mobility,Strength,Tone Goals Two Impairment Pt demonstrates significant L LE weakness in all planes Senior Gl Accountant Goal (LTG) Pt to increase MMT in all L LE planes (with exception of L DF) to at least 3+/5 in order to improve functional mobility and increase independence at home. LTG Duration 03/06/23 One Impairment Pt scores at an increased risk of falls, per TUG score (13. 58) Correction Goal (LTG) Pt to improve TUG score while using SPC and AFO to less than 10 seconds over a three-trial average LTG Duration 01/25/23 Assessment Summary Assessment Pt feeling better overall, a little more confident with balance and gait. Happier with her AFO, feels it is improving her ability to walk and not catch her foot. Physical Therapy Plan Frequency and Duration Frequency of Treatment 2x/Week Plan of Care Start Date 12/06/22 Plan of Care End Date 03/06/23 Therapeutic Interventions Therapeutic Interventions Balance Training,Gait Training ,Home Exercise Program,Manual Therapy,Neuromuscular Re- education,Patient/Caregiver Education,Self-Care/Home Management,Soft Tissue Mobilization,Therapeutic Activities,Therapeutic Exercises Next Visit Focus/Plan Next Note Type Treatment Note Next Visit Plan LE strengthening, balance, activity tolerance, gait
--- NOTE | 2022-12-24 12:46 | PT.OTN ---
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 (12/24/22) Muscle weakness (generalized) (12/24/22) Unsteadiness on feet (12/24/22) Other abnormalities of gait and mobility (12/24/22) Repeated falls (12/24/22) Physical Therapy Treatment Note PT-OP-A Visit Information Start: 12/06/22 17:32 Freq: Status: Active Protocol: Document 12/24/22 12:00 DCW (Rec: 12/24/22 12:46 DCW [id number]) Out-Patient Physical Therapy Visit Information Visit Information Visit Type Treatment Note Visit Start Time 12:00 Visit Stop Time 12:45 Total Visit Minutes 45 Visit Number 5 Number of TELEPHONE LINES REPAIRER Visits 0 Evaluation Information Evaluation Date 12/06/22 PT-OP-B Current Condition Start: 12/06/22 17:32 Freq: Status: Active Protocol: Document 12/06/22 12:10 DCW (Rec: 12/06/22 18:06 DCW [id number]) Current Condition History of Current Condition Onset Date 07/07/22 Current Complaints Weakness, gait difficulty, falls s/p CVA, subarachnoid hemorrhage History of Current Condition Pt is a 67 year old female well known to this clinic presenting with a complicated medical history. Previously, pt suffered a thalamic CVA on 12/16/20, with hemiplegia affecting her left side. Pt worked very hard at that time with PT in this clinic, and was discharged after plateauing in progress. Pt was at the point where she was much more independent, ambulating using a L AFO but minimal use of assistive devices, and had returned to driving. Unfortunately, on 07/07/22, pt had an unwitnessed fall outside while at home, when she did not arrive to product picker her son, he walked to her house, taking more than one hour, and found pt unconsious and hypothermic. Pt was brought to the ED, found to have a subarachnoid hemorrhage and skull fracture. Pt was transferred to [place], where she was admitted for 10 days, treated non- surgically, and then discharged home. Pt then received home health until August, when she was discharged to out-patient. Pt comes in today noting that she feels this has all just set me back two years. Notes that she doesn't seem to have any new symptoms, just her original post-CVA symptoms have been back to square one. Notes her hand is not as mobile, and her foot doesn't do much. Has difficulty advancing left foot during swing phase. Pt has returned to using an AFO, and in fact has a new AFO, which helps actively DF her left foot during gait. Treatment Goals Patient/Caregiver Goals I just want to be more independent. PT-OP-C Subjective Start: 12/06/22 17:32 Freq: Status: Active Protocol: Document 12/24/22 12:00 DCW (Rec: 12/24/22 12:46 DCW [id number]) OP-PT Subjective Patient Comments Patient Comments Pt hoping to work in the yard this weekend, cleaning out her chicken coop. PT-OP-E Functional Tests Start: 12/06/22 17:32 Freq: Status: Active Protocol: Document 12/06/22 12:10 DCW (Rec: 12/06/22 18:06 DCW [id number]) Functional Tests 2 Minute Walk Test Distance 217' /s AFO, 281' /c AFO Device Used SPC Comments 1.81 ft/sec /s AFO, 2.34 ft/ sec /c AFO Timed Up and Go (TUG) Score 13.58 /c SPC, AFO Comments Three-trial Average (14.16, 13 .57, 13.01) TUG Impairment Rating 40 to <60% Impaired (Score 14- 15) PT-OP-G Mobility & Gait Start: 12/06/22 17:32 Freq: Status: Active Protocol: Document 12/06/22 12:10 DCW (Rec: 12/06/22 18:06 DCW [id number]) OP Gait Assessment Comments Gait Comments When not wearing AFO, pt ambulates with no active dorsiflexion, significant toe drop, performs left circumduction to clear foot, increased difficulty advancing left foot. Ambulates much better using new AFO, with DF assist, improved foot clearance, improved gait speed , decreased swing-phase difficulty PT-OP-M Strength Start: 12/06/22 17:32 Freq: Status: Active Protocol: Document 12/06/22 12:10 DCW (Rec: 12/06/22 18:06 DCW [id number]) Hip Strength Hip Manual Muscle Testing Left Flexion (L2) 3 Fair Extension (S1) 4- Good- Abduction 3 Fair Adduction 3 Fair External Rotation 3 Fair Internal Rotation 2+ Poor+ Right Flexion (L2) 4 Good Extension (S1) 4 Good Abduction 4 Good Adduction 4 Good External Rotation 5 Normal Internal Rotation 5 Normal Knee Strength Knee Manual Muscle Testing Left Flexion (S2) 4+ Good+ Extension (L3) 4+ Good+ Right Flexion (S2) 3- Fair- Extension (L3) 4- Good- Ankle/Foot Strength Ankle and Foot Manual Muscle Testing Left Dorsiflexion (L4) 2- Poor- Right Dorsiflexion (L4) 4+ Good+ PT-OP-Q Treatments Start: 12/06/22 17:32 Freq: Status: Active Protocol: Document 12/24/22 12:00 DCW (Rec: 12/24/22 12:46 DCW [id number]) Cardio Equipment Recumbent Elliptical (BiodElationEMR) Duration (Minutes) 6 Resistance 4 Seat Position 5 Gym Equipment Cable Column (Body Solid) Leg Curl Resistance 20# Leg Extension Resistance 10# Hip Adduction Resistance 30# Hip Abduction Resistance 20# Shuttle Recovery Bilateral Squats Resistance 87# Shuttle Recovery Platform Stable Unilateral Squats Resistance 37# R, 25# L Shuttle Recovery Platform Stable Shuttle Balance Red Details WBOS (EO/EC), Staggered Therapeutic Exercises Standing Exercises Hip Extension Standing Exercise Name Hip Extension Side bilateral Resistance Red Other Exercises Resisted Ambulation Other Exercise Name Resisted side-stepping Resistance Red PT-OP-T Assessment and Plan Start: 12/06/22 17:32 Freq: Status: Active Protocol: Document 12/24/22 12:00 DCW (Rec: 12/24/22 12:46 DCW [id number]) Physical Therapy Assessment Impairments Impairments Activity Tolerance,Balance, Functional Activities, Functional Mobility,Gait,Soft Tissue Mobility,Strength,Tone Goals Two Impairment Pt demonstrates significant L LE weakness in all planes Applications Support Lead Goal (LTG) Pt to increase MMT in all L LE planes (with exception of L DF) to at least 3+/5 in order to improve functional mobility and increase independence at home. LTG Duration 03/06/23 One Impairment Pt scores at an increased risk of falls, per TUG score (13. 58) Fpc Goal (LTG) Pt to improve TUG score while using SPC and AFO to less than 10 seconds over a three-trial average LTG Duration 01/25/23 Assessment Summary Assessment Pt showing some improvement with LE strength, increased ease of most TherEx, even with some increased resistance. Physical Therapy Plan Frequency and Duration Frequency of Treatment 2x/Week Plan of Care Start Date 12/06/22 Plan of Care End Date 03/06/23 Therapeutic Interventions Therapeutic Interventions Balance Training,Gait Training ,Home Exercise Program,Manual Therapy,Neuromuscular Re- education,Patient/Caregiver Education,Self-Care/Home Management,Soft Tissue Mobilization,Therapeutic Activities,Therapeutic Exercises Next Visit Focus/Plan Next Note Type Treatment Note Next Visit Plan LE strengthening, balance, activity tolerance, gait
--- NOTE | 2023-01-20 13:30 | PT.OTN ---
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 (01/20/23) Muscle weakness (generalized) (01/20/23) Unsteadiness on feet (01/20/23) Other abnormalities of gait and mobility (01/20/23) Repeated falls (01/20/23) Physical Therapy Treatment Note PT-OP-A Visit Information Start: 12/06/22 17:32 Freq: Status: Active Protocol: Document 01/20/23 12:45 DCW (Rec: 01/20/23 13:30 DCW [id number]) Out-Patient Physical Therapy Visit Information Visit Information Visit Type Treatment Note Visit Start Time 12:45 Visit Stop Time 13:30 Total Visit Minutes 45 Visit Number 6 Number of ASSURANCE OFFICER Visits 0 Evaluation Information Evaluation Date 12/06/22 PT-OP-B Current Condition Start: 12/06/22 17:32 Freq: Status: Active Protocol: Document 12/06/22 12:10 DCW (Rec: 12/06/22 18:06 DCW [id number]) Current Condition History of Current Condition Onset Date 07/07/22 Current Complaints Weakness, gait difficulty, falls s/p CVA, subarachnoid hemorrhage History of Current Condition Pt is a 67 year old female well known to this clinic presenting with a complicated medical history. Previously, pt suffered a thalamic CVA on 12/16/20, with hemiplegia affecting her left side. Pt worked very hard at that time with PT in this clinic, and was discharged after plateauing in progress. Pt was at the point where she was much more independent, ambulating using a L AFO but minimal use of assistive devices, and had returned to driving. Unfortunately, on 07/07/22, pt had an unwitnessed fall outside while at home, when she did not arrive to pecan picker her son, he walked to her house, taking more than one hour, and found pt unconsious and hypothermic. Pt was brought to the ED, found to have a subarachnoid hemorrhage and skull fracture. Pt was transferred to [place], where she was admitted for 10 days, treated non- surgically, and then discharged home. Pt then received home health until August, when she was discharged to out-patient. Pt comes in today noting that she feels this has all just set me back two years. Notes that she doesn't seem to have any new symptoms, just her original post-CVA symptoms have been back to square one. Notes her hand is not as mobile, and her foot doesn't do much. Has difficulty advancing left foot during swing phase. Pt has returned to using an AFO, and in fact has a new AFO, which helps actively DF her left foot during gait. Treatment Goals Patient/Caregiver Goals I just want to be more independent. PT-OP-C Subjective Start: 12/06/22 17:32 Freq: Status: Active Protocol: Document 01/20/23 12:45 DCW (Rec: 01/20/23 13:30 DCW [id number]) OP-PT Subjective Patient Comments Patient Comments I've been trying to go through some decision making. I still don't drive, so I've been trying to decide if I need more PT and OT. PT-OP-E Functional Tests Start: 12/06/22 17:32 Freq: Status: Active Protocol: Document 12/06/22 12:10 DCW (Rec: 12/06/22 18:06 DCW [id number]) Functional Tests 2 Minute Walk Test Distance 217' /s AFO, 281' /c AFO Device Used SPC Comments 1.81 ft/sec /s AFO, 2.34 ft/ sec /c AFO Timed Up and Go (TUG) Score 13.58 /c SPC, AFO Comments Three-trial Average (14.16, 13 .57, 13.01) TUG Impairment Rating 40 to <60% Impaired (Score 14- 15) PT-OP-G Mobility & Gait Start: 12/06/22 17:32 Freq: Status: Active Protocol: Document 12/06/22 12:10 DCW (Rec: 12/06/22 18:06 DCW [id number]) OP Gait Assessment Comments Gait Comments When not wearing AFO, pt ambulates with no active dorsiflexion, significant toe drop, performs left circumduction to clear foot, increased difficulty advancing left foot. Ambulates much better using new AFO, with DF assist, improved foot clearance, improved gait speed , decreased swing-phase difficulty PT-OP-M Strength Start: 12/06/22 17:32 Freq: Status: Active Protocol: Document 12/06/22 12:10 DCW (Rec: 12/06/22 18:06 DCW [id number]) Hip Strength Hip Manual Muscle Testing Left Flexion (L2) 3 Fair Extension (S1) 4- Good- Abduction 3 Fair Adduction 3 Fair External Rotation 3 Fair Internal Rotation 2+ Poor+ Right Flexion (L2) 4 Good Extension (S1) 4 Good Abduction 4 Good Adduction 4 Good External Rotation 5 Normal Internal Rotation 5 Normal Knee Strength Knee Manual Muscle Testing Left Flexion (S2) 4+ Good+ Extension (L3) 4+ Good+ Right Flexion (S2) 3- Fair- Extension (L3) 4- Good- Ankle/Foot Strength Ankle and Foot Manual Muscle Testing Left Dorsiflexion (L4) 2- Poor- Right Dorsiflexion (L4) 4+ Good+ PT-OP-Q Treatments Start: 12/06/22 17:32 Freq: Status: Active Protocol: Document 01/20/23 12:45 DCW (Rec: 01/20/23 13:30 DCW [id number]) Cardio Equipment Recumbent Stepper (Sci-Fit) Duration (Minutes) 6 Resistance 3 Seat Position 8 Gym Equipment Cable Column (Body Solid) Leg Curl Details Mainly left, assist as needed with right Resistance 20# Leg Extension Details Mainly left, assist as needed with right Resistance 10# Hip Adduction Resistance 35# Hip Abduction Resistance 25# Shuttle Recovery Bilateral Squats Resistance 87# (three new bands) Shuttle Recovery Platform Stable Unilateral Squats Resistance 50# R, 37#->25# L Shuttle Recovery Platform Stable Shuttle Balance Red Details WBOS (EO/EC, perturbations), Staggered Therapeutic Exercises Standing Exercises Hip Extension Standing Exercise Name Hip Extension Side bilateral Resistance Red Other Exercises Resisted Ambulation Other Exercise Name Resisted side-stepping Resistance Red PT-OP-T Assessment and Plan Start: 12/06/22 17:32 Freq: Status: Active Protocol: Document 01/20/23 12:45 DCW (Rec: 01/20/23 13:30 DCW [id number]) Physical Therapy Assessment Impairments Impairments Activity Tolerance,Balance, Functional Activities, Functional Mobility,Gait,Soft Tissue Mobility,Strength,Tone Goals Two Impairment Pt demonstrates significant L LE weakness in all planes Power Washer Goal (LTG) Pt to increase MMT in all L LE planes (with exception of L DF) to at least 3+/5 in order to improve functional mobility and increase independence at home. LTG Duration 03/06/23 One Impairment Pt scores at an increased risk of falls, per TUG score (13. 58) Power Washer Goal (LTG) Pt to improve TUG score while using SPC and AFO to less than 10 seconds over a three-trial average LTG Duration 01/25/23 Assessment Summary Assessment Pt did well today, even with increases in most resistance during TherEx. Following discussion with pt, agreeable to continue therapy, daughter attended today's session, denies that getting pt here is a hardship. Physical Therapy Plan Frequency and Duration Frequency of Treatment 2x/Week Plan of Care Start Date 12/06/22 Plan of Care End Date 03/06/23 Therapeutic Interventions Therapeutic Interventions Balance Training,Gait Training ,Home Exercise Program,Manual Therapy,Neuromuscular Re- education,Patient/Caregiver Education,Self-Care/Home Management,Soft Tissue Mobilization,Therapeutic Activities,Therapeutic Exercises Next Visit Focus/Plan Next Note Type Treatment Note Next Visit Plan LE strengthening, balance, activity tolerance, gait
--- NOTE | 2023-01-25 13:29 | PT.OTN ---
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 (01/25/23) Muscle weakness (generalized) (01/25/23) Unsteadiness on feet (01/25/23) Other abnormalities of gait and mobility (01/25/23) Repeated falls (01/25/23) Physical Therapy Treatment Note PT-OP-A Visit Information Start: 12/06/22 17:32 Freq: Status: Active Protocol: Document 01/25/23 12:45 DCW (Rec: 01/25/23 13:29 DCW [id number]) Out-Patient Physical Therapy Visit Information Visit Information Visit Type Treatment Note Visit Start Time 12:45 Visit Stop Time 13:30 Total Visit Minutes 45 Visit Number 7 Number of DERMATOLOGY PHYSICIAN ASSISTANT Visits 0 Evaluation Information Evaluation Date 12/06/22 PT-OP-B Current Condition Start: 12/06/22 17:32 Freq: Status: Active Protocol: Document 12/06/22 12:10 DCW (Rec: 12/06/22 18:06 DCW [id number]) Current Condition History of Current Condition Onset Date 07/07/22 Current Complaints Weakness, gait difficulty, falls s/p CVA, subarachnoid hemorrhage History of Current Condition Pt is a 67 year old female well known to this clinic presenting with a complicated medical history. Previously, pt suffered a thalamic CVA on 12/16/20, with hemiplegia affecting her left side. Pt worked very hard at that time with PT in this clinic, and was discharged after plateauing in progress. Pt was at the point where she was much more independent, ambulating using a L AFO but minimal use of assistive devices, and had returned to driving. Unfortunately, on 07/07/22, pt had an unwitnessed fall outside while at home, when she did not arrive to pickler helper her son, he walked to her house, taking more than one hour, and found pt unconsious and hypothermic. Pt was brought to the ED, found to have a subarachnoid hemorrhage and skull fracture. Pt was transferred to [place], where she was admitted for 10 days, treated non- surgically, and then discharged home. Pt then received home health until August, when she was discharged to out-patient. Pt comes in today noting that she feels this has all just set me back two years. Notes that she doesn't seem to have any new symptoms, just her original post-CVA symptoms have been back to square one. Notes her hand is not as mobile, and her foot doesn't do much. Has difficulty advancing left foot during swing phase. Pt has returned to using an AFO, and in fact has a new AFO, which helps actively DF her left foot during gait. Treatment Goals Patient/Caregiver Goals I just want to be more independent. 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 PT-OP-E Functional Tests Start: 12/06/22 17:32 Freq: Status: Active Protocol: Document 12/06/22 12:10 DCW (Rec: 12/06/22 18:06 DCW [id number]) Functional Tests 2 Minute Walk Test Distance 217' /s AFO, 281' /c AFO Device Used SPC Comments 1.81 ft/sec /s AFO, 2.34 ft/ sec /c AFO Timed Up and Go (TUG) Score 13.58 /c SPC, AFO Comments Three-trial Average (14.16, 13 .57, 13.01) TUG Impairment Rating 40 to <60% Impaired (Score 14- 15) PT-OP-G Mobility & Gait Start: 12/06/22 17:32 Freq: Status: Active Protocol: Document 12/06/22 12:10 DCW (Rec: 12/06/22 18:06 DCW [id number]) OP Gait Assessment Comments Gait Comments When not wearing AFO, pt ambulates with no active dorsiflexion, significant toe drop, performs left circumduction to clear foot, increased difficulty advancing left foot. Ambulates much better using new AFO, with DF assist, improved foot clearance, improved gait speed , decreased swing-phase difficulty PT-OP-M Strength Start: 12/06/22 17:32 Freq: Status: Active Protocol: Document 12/06/22 12:10 DCW (Rec: 12/06/22 18:06 DCW [id number]) Hip Strength Hip Manual Muscle Testing Left Flexion (L2) 3 Fair Extension (S1) 4- Good- Abduction 3 Fair Adduction 3 Fair External Rotation 3 Fair Internal Rotation 2+ Poor+ Right Flexion (L2) 4 Good Extension (S1) 4 Good Abduction 4 Good Adduction 4 Good External Rotation 5 Normal Internal Rotation 5 Normal Knee Strength Knee Manual Muscle Testing Left Flexion (S2) 4+ Good+ Extension (L3) 4+ Good+ Right Flexion (S2) 3- Fair- Extension (L3) 4- Good- Ankle/Foot Strength Ankle and Foot Manual Muscle Testing Left Dorsiflexion (L4) 2- Poor- Right Dorsiflexion (L4) 4+ Good+ PT-OP-Q Treatments Start: 12/06/22 17:32 Freq: Status: Active Protocol: Document 01/25/23 12:45 DCW (Rec: 01/25/23 13:29 DCW [id number]) Cardio Equipment Recumbent Elliptical ([employer]) Duration (Minutes) 6 Resistance 5 Seat Position 5 Gym Equipment Cable Column (Body Solid) Leg Curl Details Mainly left, assist as needed with right Resistance 20# Leg Extension Details Mainly left, assist as needed with right Resistance 10# Hip Adduction Resistance 35# Hip Abduction Resistance 25# Shuttle Recovery Bilateral Squats Resistance 87# (three new bands) Shuttle Recovery Platform Stable Unilateral Squats Resistance 50# R, 37#->25# L Shuttle Recovery Platform Stable Shuttle Balance Red Details WBOS (EO/EC, perturbations), Staggered PT-OP-T Assessment and Plan Start: 12/06/22 17:32 Freq: Status: Active Protocol: Document 01/25/23 12:45 DCW (Rec: 01/25/23 13:29 DCW [id number]) Physical Therapy Assessment Impairments Impairments Activity Tolerance,Balance, Functional Activities, Functional Mobility,Gait,Soft Tissue Mobility,Strength,Tone Goals Two Impairment Pt demonstrates significant L LE weakness in all planes Correction Goal (LTG) Pt to increase MMT in all L LE planes (with exception of L DF) to at least 3+/5 in order to improve functional mobility and increase independence at home. LTG Duration 03/06/23 One Impairment Pt scores at an increased risk of falls, per TUG score (13. 58) Correction Goal (LTG) Pt to improve TUG score while using SPC and AFO to less than 10 seconds over a three-trial average LTG Duration 01/25/23 Assessment Summary Assessment Pt more optimistic today regarding ongoing therapy, did well with strength and balance challenges today. Continue to focus on improving left leg stability during gait. Physical Therapy Plan Frequency and Duration Frequency of Treatment 2x/Week Plan of Care Start Date 12/06/22 Plan of Care End Date 03/06/23 Therapeutic Interventions Therapeutic Interventions Balance Training,Gait Training ,Home Exercise Program,Manual Therapy,Neuromuscular Re- education,Patient/Caregiver Education,Self-Care/Home Management,Soft Tissue Mobilization,Therapeutic Activities,Therapeutic Exercises Next Visit Focus/Plan Next Note Type Treatment Note Next Visit Plan LE strengthening, balance, activity tolerance, gait
--- NOTE | 2023-01-27 13:27 | PT.OTN ---
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 (01/27/23) Muscle weakness (generalized) (01/27/23) Unsteadiness on feet (01/27/23) Other abnormalities of gait and mobility (01/27/23) Repeated falls (01/27/23) Physical Therapy Treatment Note PT-OP-A Visit Information Start: 12/06/22 17:32 Freq: Status: Active Protocol: Document 01/27/23 12:48 DCW (Rec: 01/27/23 13:27 DCW [id number]) Out-Patient Physical Therapy Visit Information Visit Information Visit Type Treatment Note Visit Start Time 12:48 Visit Stop Time 13:30 Total Visit Minutes 42 Visit Number 8 Number of HARDWARE ASSEMBLER Visits 0 Evaluation Information Evaluation Date 12/06/22 PT-OP-B Current Condition Start: 12/06/22 17:32 Freq: Status: Active Protocol: Document 12/06/22 12:10 DCW (Rec: 12/06/22 18:06 DCW [id number]) Current Condition History of Current Condition Onset Date 07/07/22 Current Complaints Weakness, gait difficulty, falls s/p CVA, subarachnoid hemorrhage History of Current Condition Pt is a 67 year old female well known to this clinic presenting with a complicated medical history. Previously, pt suffered a thalamic CVA on 12/16/20, with hemiplegia affecting her left side. Pt worked very hard at that time with PT in this clinic, and was discharged after plateauing in progress. Pt was at the point where she was much more independent, ambulating using a L AFO but minimal use of assistive devices, and had returned to driving. Unfortunately, on 07/07/22, pt had an unwitnessed fall outside while at home, when she did not arrive to pickling operator her son, he walked to her house, taking more than one hour, and found pt unconsious and hypothermic. Pt was brought to the ED, found to have a subarachnoid hemorrhage and skull fracture. Pt was transferred to [place], where she was admitted for 10 days, treated non- surgically, and then discharged home. Pt then received home health until August, when she was discharged to out-patient. Pt comes in today noting that she feels this has all just set me back two years. Notes that she doesn't seem to have any new symptoms, just her original post-CVA symptoms have been back to square one. Notes her hand is not as mobile, and her foot doesn't do much. Has difficulty advancing left foot during swing phase. Pt has returned to using an AFO, and in fact has a new AFO, which helps actively DF her left foot during gait. Treatment Goals Patient/Caregiver Goals I just want to be more independent. PT-OP-C Subjective Start: 12/06/22 17:32 Freq: Status: Active Protocol: Document 01/27/23 12:48 DCW (Rec: 01/27/23 13:27 DCW [id number]) OP-PT Subjective Patient Comments Patient Comments I think I am getting stronger , I can go up stairs easier. PT-OP-E Functional Tests Start: 12/06/22 17:32 Freq: Status: Active Protocol: Document 12/06/22 12:10 DCW (Rec: 12/06/22 18:06 DCW [id number]) Functional Tests 2 Minute Walk Test Distance 217' /s AFO, 281' /c AFO Device Used SPC Comments 1.81 ft/sec /s AFO, 2.34 ft/ sec /c AFO Timed Up and Go (TUG) Score 13.58 /c SPC, AFO Comments Three-trial Average (14.16, 13 .57, 13.01) TUG Impairment Rating 40 to <60% Impaired (Score 14- 15) PT-OP-G Mobility & Gait Start: 12/06/22 17:32 Freq: Status: Active Protocol: Document 12/06/22 12:10 DCW (Rec: 12/06/22 18:06 DCW [id number]) OP Gait Assessment Comments Gait Comments When not wearing AFO, pt ambulates with no active dorsiflexion, significant toe drop, performs left circumduction to clear foot, increased difficulty advancing left foot. Ambulates much better using new AFO, with DF assist, improved foot clearance, improved gait speed , decreased swing-phase difficulty PT-OP-M Strength Start: 12/06/22 17:32 Freq: Status: Active Protocol: Document 12/06/22 12:10 DCW (Rec: 12/06/22 18:06 DCW [id number]) Hip Strength Hip Manual Muscle Testing Left Flexion (L2) 3 Fair Extension (S1) 4- Good- Abduction 3 Fair Adduction 3 Fair External Rotation 3 Fair Internal Rotation 2+ Poor+ Right Flexion (L2) 4 Good Extension (S1) 4 Good Abduction 4 Good Adduction 4 Good External Rotation 5 Normal Internal Rotation 5 Normal Knee Strength Knee Manual Muscle Testing Left Flexion (S2) 4+ Good+ Extension (L3) 4+ Good+ Right Flexion (S2) 3- Fair- Extension (L3) 4- Good- Ankle/Foot Strength Ankle and Foot Manual Muscle Testing Left Dorsiflexion (L4) 2- Poor- Right Dorsiflexion (L4) 4+ Good+ PT-OP-Q Treatments Start: 12/06/22 17:32 Freq: Status: Active Protocol: Document 01/27/23 12:48 DCW (Rec: 01/27/23 13:27 DCW [id number]) Cardio Equipment Recumbent Elliptical ([employer]) Duration (Minutes) 6 Resistance 5 Seat Position 5 Gym Equipment Cable Column (Body Solid) Leg Curl Details Mainly left, assist as needed with right Resistance 20# Leg Extension Details Mainly left, assist as needed with right Resistance 10# Hip Adduction Resistance 40# Hip Abduction Resistance 30# Shuttle Recovery Bilateral Squats Resistance 87# (three new bands) Shuttle Recovery Platform Stable Unilateral Squats Resistance 50# R, 37#->25# L Shuttle Recovery Platform Stable Shuttle Balance Red Details WBOS (EO/EC, perturbations), Staggered Comments Balloon Volley Sport Cord 1 Exercise Details Fwd/Bkwd/Lateral stepping (w/ L AFO) Cord/Resistance Red Reps/Duration 5x each direction PT-OP-T Assessment and Plan Start: 12/06/22 17:32 Freq: Status: Active Protocol: Document 01/27/23 12:48 DCW (Rec: 01/27/23 13:27 DCW [id number]) Physical Therapy Assessment Impairments Impairments Activity Tolerance,Balance, Functional Activities, Functional Mobility,Gait,Soft Tissue Mobility,Strength,Tone Goals Two Impairment Pt demonstrates significant L LE weakness in all planes Construction Supervisor Goal (LTG) Pt to increase MMT in all L LE planes (with exception of L DF) to at least 3+/5 in order to improve functional mobility and increase independence at home. LTG Duration 03/06/23 One Impairment Pt scores at an increased risk of falls, per TUG score (13. 58) Construction Supervisor Goal (LTG) Pt to improve TUG score while using SPC and AFO to less than 10 seconds over a three-trial average LTG Duration 01/25/23 Assessment Summary Assessment Pt did very well with increased challenges, increased resistance on leg curl/extension, some instability with Red sportcord . Physical Therapy Plan Frequency and Duration Frequency of Treatment 2x/Week Plan of Care Start Date 12/06/22 Plan of Care End Date 03/06/23 Therapeutic Interventions Therapeutic Interventions Balance Training,Gait Training ,Home Exercise Program,Manual Therapy,Neuromuscular Re- education,Patient/Caregiver Education,Self-Care/Home Management,Soft Tissue Mobilization,Therapeutic Activities,Therapeutic Exercises Next Visit Focus/Plan Next Note Type Treatment Note Next Visit Plan LE strengthening, balance, activity tolerance, gait
--- NOTE | 2023-06-13 14:16 | PT.OPDS ---
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 (01/27/23) Muscle weakness (generalized) (01/27/23) Unsteadiness on feet (01/27/23) Other abnormalities of gait and mobility (01/27/23) Repeated falls (01/27/23) Visit Care Team Role Provider Type Xiomara Diego DO Attending Provider Physician Family Provider Primary Care Provider Referring Provider Specialty: Family Practice Address: [address] [place] [address], [facility] [place], [place], [facility] Email: [email or web address] Visit Number Visit Number 8 Discharge Summary PT-OP-B Current Condition Start: 12/06/22 17:32 Freq: Status: Active Protocol: Document 12/06/22 12:10 DCW (Rec: 12/06/22 18:06 DCW [id number]) Current Condition History of Current Condition Onset Date 07/07/22 Current Complaints Weakness, gait difficulty, falls s/p CVA, subarachnoid hemorrhage History of Current Condition Pt is a 67 year old female well known to this clinic presenting with a complicated medical history. Previously, pt suffered a thalamic CVA on 12/16/20, with hemiplegia affecting her left side. Pt worked very hard at that time with PT in this clinic, and was discharged after plateauing in progress. Pt was at the point where she was much more independent, ambulating using a L AFO but minimal use of assistive devices, and had returned to driving. Unfortunately, on 07/07/22, pt had an unwitnessed fall outside while at home, when she did not arrive to cotton picking machine operator her son, he walked to her house, taking more than one hour, and found pt unconsious and hypothermic. Pt was brought to the ED, found to have a subarachnoid hemorrhage and skull fracture. Pt was transferred to [place], where she was admitted for 10 days, treated non- surgically, and then discharged home. Pt then received home health until August, when she was discharged to out-patient. Pt comes in today noting that she feels this has all just set me back two years. Notes that she doesn't seem to have any new symptoms, just her original post-CVA symptoms have been back to square one. Notes her hand is not as mobile, and her foot doesn't do much. Has difficulty advancing left foot during swing phase. Pt has returned to using an AFO, and in fact has a new AFO, which helps actively DF her left foot during gait. Treatment Goals Patient/Caregiver Goals I just want to be more independent. PT-OP-C Subjective Start: 12/06/22 17:32 Freq: Status: Active Protocol: Document 01/27/23 12:48 DCW (Rec: 01/27/23 13:27 DCW [id number]) OP-PT Subjective Patient Comments Patient Comments I think I am getting stronger , I can go up stairs easier. PT-OP-E Functional Tests Start: 12/06/22 17:32 Freq: Status: Active Protocol: Document 12/06/22 12:10 DCW (Rec: 12/06/22 18:06 DCW [id number]) Functional Tests 2 Minute Walk Test Distance 217' /s AFO, 281' /c AFO Device Used SPC Comments 1.81 ft/sec /s AFO, 2.34 ft/ sec /c AFO Timed Up and Go (TUG) Score 13.58 /c SPC, AFO Comments Three-trial Average (14.16, 13 .57, 13.01) TUG Impairment Rating 40 to <60% Impaired (Score 14- 15) PT-OP-G Mobility & Gait Start: 12/06/22 17:32 Freq: Status: Active Protocol: Document 12/06/22 12:10 DCW (Rec: 12/06/22 18:06 DCW [id number]) OP Gait Assessment Comments Gait Comments When not wearing AFO, pt ambulates with no active dorsiflexion, significant toe drop, performs left circumduction to clear foot, increased difficulty advancing left foot. Ambulates much better using new AFO, with DF assist, improved foot clearance, improved gait speed , decreased swing-phase difficulty PT-OP-M Strength Start: 12/06/22 17:32 Freq: Status: Active Protocol: Document 12/06/22 12:10 DCW (Rec: 12/06/22 18:06 DCW [id number]) Hip Strength Hip Manual Muscle Testing Left Flexion (L2) 3 Fair Extension (S1) 4- Good- Abduction 3 Fair Adduction 3 Fair External Rotation 3 Fair Internal Rotation 2+ Poor+ Right Flexion (L2) 4 Good Extension (S1) 4 Good Abduction 4 Good Adduction 4 Good External Rotation 5 Normal Internal Rotation 5 Normal Knee Strength Knee Manual Muscle Testing Left Flexion (S2) 4+ Good+ Extension (L3) 4+ Good+ Right Flexion (S2) 3- Fair- Extension (L3) 4- Good- Ankle/Foot Strength Ankle and Foot Manual Muscle Testing Left Dorsiflexion (L4) 2- Poor- Right Dorsiflexion (L4) 4+ Good+ PT-OP-T Assessment and Plan Start: 12/06/22 17:32 Freq: Status: Active Protocol: Document 06/13/23 14:15 DCW (Rec: 06/13/23 14:16 DCW [id number]) Physical Therapy Assessment Assessment Summary Assessment Pt has not been seen in four months, has no follow-up visits scheduled. Pt will be discharged from skilled PT at this time, will require a new referral in order to return. Physical Therapy Plan Discharge Physical Therapy Discharge Reasons No Longer Attending PT Next Visit Focus/Plan Next Note Type Discharge Summary
== END 2023-06-16 08:08 | disposition home or self-care (01) ==
LOC: PHYS 12:45
PROVIDERS: Family Provider Family Medicine; PCP Family Medicine; Referring Provider Family Medicine; Visit Provider Family Medicine
DX: I63.9 Cerebral infarction, unspecified (principal); R26.89 Other abnormalities of gait and mobility; R29.6 Repeated falls; R26.81 Unsteadiness on feet; M62.81 Muscle weakness (generalized); I69.854 Hemiplegia and hemiparesis following other cerebrovascular disease affecting left non-dominant side
CPT/HCPCS: 97110; 97112; 97163

== ENCOUNTER → 2023-05-09 10:36 | Outpatient (CLI) | payer MEDICARE, SELFPAY ==
[2020-12-16 06:20] VITALS: BMI 25.4
[2023-05-09 11:09] LABS: Add Manual Diff / Slide Review NO; Basophils Absolute Auto 0 /uL (0-100); Basophils Percent Auto 0.5 % (0-2); Eosinophils Absolute Auto 100 /uL (0-450); Eosinophils Percent Auto 0.9 % (2-4); Hematocrit 40.3 % (36-46); Lymphocytes Absolute Auto 2500 /uL (1100-4500); Mean Corpuscular HGB Conc 34.7 % (30-36); Mean Corpuscular Volume 86.3 fL (80-100); Monocytes Absolute Auto 400 /uL (0-900); Monocytes Percent Auto 5.5 % (3-14); Neutrophils Absolute Auto 4600 /uL (1500-7000); Neutrophils Percent Auto 60.1 % (50-75); Platelet Count 266 X10^3/uL (150-400); Red Blood Cell Count 4.67 X10^6/uL (4.0-5.2); Red Cell Distribution Width 13.5 % (11.6-14.8); White Blood Cell Count 7.6 X10^3/uL (4.5-11.0)
[2023-05-09 11:28] LABS: Alanine Aminotransferase 17 IU/L (<35); Albumin 4.4 g/dL (3.5-5.0); Albumin Globulin Ratio 1.6 (1.0-2.8); Alkaline Phosphatase 74 U/L (38-126); Aspartate Aminotransferase 31 IU/L (14-36); BUN Creatinine Ratio 25.7 (6-22); Bilirubin Total 0.9 mg/dL (0.2-1.3); Blood Urea Nitrogen 18 mg/dL (7-17); Calcium 9.7 mg/dL (8.4-10.2); Carbon Dioxide 27 mmol/L (22-32); Chloride 100 mmol/L (98-107); Cholesterol 147 mg/dL (140-199); Estimated Glomerular Filt Rate > 60 mL/min (>60); Globulin 2.7 g/dL (1.7-4.1); Glucose 182 mg/dL (80-110); HDL Cholesterol 45 mg/dL (40-60); HEMOLYSIS < 15 (0-50); LDL Cholesterol Calculated 63 mg/dL (<100); Potassium 4.7 mmol/L (3.4-5.1); Sodium 137 mmol/L (137-145); Total Protein 7.1 g/dL (6.3-8.2); Triglycerides 197 mg/dL (35-150)
[2023-05-09 11:55] LABS: Creatinine Urine Random 65.7 mg/dL
[2023-05-09 11:58] LABS: TSH w/ Reflex to FT4 1.67 uIU/mL (0.47-4.68)
[2023-05-09 12:00] LABS: Microalbumin Urine Random < 0.6 mg/dL (0-1.6)
[2023-05-09 12:17] LABS: Vitamin B12 339 pg/mL (239-931)
== END ==
PROVIDERS: Physician Assistant; Family Provider Family Medicine; PCP Family Medicine; Referring Provider Family Medicine; Visit Provider Family Medicine
DX: E11.319 Type 2 diabetes mellitus with unspecified diabetic retinopathy without macular edema (principal); E78.5 Hyperlipidemia, unspecified; I10 Essential (primary) hypertension; R26.89 Other abnormalities of gait and mobility
CPT/HCPCS: 36415; 80053; 80061; 82043; 82570; 82607; 84443; 85025

== ENCOUNTER → 2023-05-10 17:00 | Outpatient (CLI) | payer MEDICARE, SELFPAY ==
[2020-12-16 06:20] VITALS: BMI 25.4
[2023-05-10 17:55] LABS: Hemoglobin A1C% w Est Avg Glu 7.1 % (4.0-6.0)
== END ==
PROVIDERS: Family Provider Family Medicine; PCP Family Medicine; Visit Provider Physician Assistant
DX: E11.319 Type 2 diabetes mellitus with unspecified diabetic retinopathy without macular edema (principal)
CPT/HCPCS: 83036

== ENCOUNTER → 2023-10-05 09:58 | Outpatient (CLI) | payer MEDICARE, SELFPAY ==
[2020-12-16 06:20] VITALS: BMI 25.4
[2023-10-05 10:56] LABS: Add Manual Diff / Slide Review NO; Basophils Absolute Auto 0 /uL (0-100); Basophils Percent Auto 0.5 % (0-2); Eosinophils Absolute Auto 100 /uL (0-450); Eosinophils Percent Auto 2.1 % (2-4); Hematocrit 43.6 % (36-46); Hemoglobin 15.2 g/dL (12.0-16.0); Lymphocytes Absolute Auto 2400 /uL (1100-4500); Lymphocytes Percent Auto 34.5 % (25-40); Mean Corpuscular HGB Conc 34.9 % (30-36); Mean Corpuscular Hemoglobin 29.8 PG (26-34); Mean Corpuscular Volume 85.4 fL (80-100); Monocytes Absolute Auto 400 /uL (0-900); Monocytes Percent Auto 5.4 % (3-14); Neutrophils Absolute Auto 4000 /uL (1500-7000); Neutrophils Percent Auto 57.5 % (50-75); Platelet Count 268 X10^3/uL (150-400); Red Blood Cell Count 5.11 X10^6/uL (4.0-5.2); Red Cell Distribution Width 13.1 % (11.6-14.8); White Blood Cell Count 6.9 X10^3/uL (4.5-11.0)
[2023-10-05 11:07] LABS: Hemoglobin A1C% w Est Avg Glu 10.9 % (4.0-6.0)
[2023-10-05 11:12] LABS: Alanine Aminotransferase 14 IU/L (<35); Albumin 4.4 g/dL (3.5-5.0); Albumin Globulin Ratio 1.4 (1.0-2.8); Alkaline Phosphatase 71 U/L (38-126); Aspartate Aminotransferase 28 IU/L (14-36); BUN Creatinine Ratio 34.8 (6-22); Bilirubin Total 0.7 mg/dL (0.2-1.3); Blood Urea Nitrogen 24 mg/dL (7-17); Calcium 10.1 mg/dL (8.4-10.2); Carbon Dioxide 27 mmol/L (22-32); Chloride 96 mmol/L (98-107); Cholesterol 227 mg/dL (140-199); Estimated Glomerular Filt Rate > 60 mL/min (>60); Globulin 3.1 g/dL (1.7-4.1); Glucose 388 mg/dL (80-110); HDL Cholesterol 35 mg/dL (40-60); HEMOLYSIS 17 (0-50); LDL Cholesterol Calculated 118 mg/dL (<100); Potassium 4.8 mmol/L (3.4-5.1); Sodium 132 mmol/L (137-145); Total Protein 7.5 g/dL (6.3-8.2); Triglycerides 371 mg/dL (35-150)
[2023-10-05 17:56] LABS: Creatinine Urine Random 71.1 mg/dL
[2023-10-05 18:03] LABS: Microalbumi Creatinin Ratio Ur 15.4 ug/mg CR (<30); Microalbumin Urine Random 1.1 mg/dL (0-1.6)
== END ==
PROVIDERS: Family Provider Family Medicine; PCP Student in an Organized Health Care Education/Training Program; Referring Provider Student in an Organized Health Care Education/Training Program; Visit Provider Student in an Organized Health Care Education/Training Program
DX: I10 Essential (primary) hypertension (principal); E11.9 Type 2 diabetes mellitus without complications; E78.2 Mixed hyperlipidemia
CPT/HCPCS: 80053; 80061; 82043; 82570; 83036; 85025

== ENCOUNTER → 2023-11-15 09:22 | Outpatient (CLI) | payer MEDICARE, SELFPAY ==
[2020-12-16 06:20] VITALS: BMI 25.4
[2023-11-15 10:10] LABS: Add Manual Diff / Slide Review NO; Basophils Absolute Auto 0 /uL (0-100); Basophils Percent Auto 0.2 % (0-2); Eosinophils Absolute Auto 100 /uL (0-450); Eosinophils Percent Auto 1.5 % (2-4); Hematocrit 40.9 % (36-46); Hemoglobin 14.4 g/dL (12.0-16.0); Lymphocytes Absolute Auto 2800 /uL (1100-4500); Mean Corpuscular HGB Conc 35.1 % (30-36); Mean Corpuscular Hemoglobin 29.7 PG (26-34); Mean Corpuscular Volume 84.5 fL (80-100); Monocytes Absolute Auto 400 /uL (0-900); Monocytes Percent Auto 5.3 % (3-14); Neutrophils Absolute Auto 4800 /uL (1500-7000); Platelet Count 296 X10^3/uL (150-400); Red Blood Cell Count 4.85 X10^6/uL (4.0-5.2); Red Cell Distribution Width 13.4 % (11.6-14.8); White Blood Cell Count 8.1 X10^3/uL (4.5-11.0)
[2023-11-15 10:50] LABS: Alanine Aminotransferase 29 IU/L (<35); Albumin Globulin Ratio 1.5 (1.0-2.8); Alkaline Phosphatase 52 U/L (38-126); Aspartate Aminotransferase 42 IU/L (14-36); BUN Creatinine Ratio 30.4 (6-22); Bilirubin Total 0.7 mg/dL (0.2-1.3); Blood Urea Nitrogen 21 mg/dL (7-17); Calcium 9.7 mg/dL (8.4-10.2); Carbon Dioxide 28 mmol/L (22-32); Chloride 105 mmol/L (98-107); Cholesterol 65 mg/dL (140-199); Estimated Glomerular Filt Rate > 60 mL/min (>60); Globulin 2.6 g/dL (1.7-4.1); Glucose 120 mg/dL (80-110); HDL Cholesterol 32 mg/dL (40-60); HEMOLYSIS < 15 (0-50); LDL Cholesterol Calculated 15 mg/dL (<100); Potassium 4.4 mmol/L (3.4-5.1); Sodium 140 mmol/L (137-145); Total Protein 6.6 g/dL (6.3-8.2); Triglycerides 92 mg/dL (35-150)
[2023-11-15 10:53] LABS: Microalbumin Urine Random 1.5 mg/dL (0-1.6)
[2023-11-15 10:56] LABS: Creatinine Urine Random 166.6 mg/dL
[2023-11-17 14:43] LABS: Fecal Immunochemical Test Negative (Negative)
== END ==
PROVIDERS: Family Provider Family Medicine; PCP Student in an Organized Health Care Education/Training Program; Referring Provider Student in an Organized Health Care Education/Training Program; Visit Provider Student in an Organized Health Care Education/Training Program
DX: E11.9 Type 2 diabetes mellitus without complications (principal); I10 Essential (primary) hypertension; E78.5 Hyperlipidemia, unspecified
CPT/HCPCS: 36415; 80053; 80061; 82043; 82274; 82570; 83036; 85025

== ENCOUNTER → 2023-12-27 10:01 | Outpatient (CLI) | payer MEDICARE, SELFPAY ==
[2020-12-16 06:20] VITALS: BMI 25.4
[2023-12-27 11:05] LABS: Hemoglobin A1C% w Est Avg Glu 7.2 % (4.0-6.0)
[2023-12-27 11:18] LABS: Alanine Aminotransferase 20 IU/L (<35); Albumin 4.5 g/dL (3.5-5.0); Albumin Globulin Ratio 1.6 (1.0-2.8); Alkaline Phosphatase 54 U/L (38-126); Aspartate Aminotransferase 37 IU/L (14-36); BUN Creatinine Ratio 24.7 (6-22); Bilirubin Total 0.7 mg/dL (0.2-1.3); Blood Urea Nitrogen 19 mg/dL (7-17); Calcium 9.5 mg/dL (8.4-10.2); Carbon Dioxide 28 mmol/L (22-32); Chloride 105 mmol/L (98-107); Estimated Glomerular Filt Rate > 60 mL/min (>60); Globulin 2.8 g/dL (1.7-4.1); Glucose 126 mg/dL (80-110); HEMOLYSIS < 15 (0-50); Potassium 4.7 mmol/L (3.4-5.1); Sodium 139 mmol/L (137-145); Total Protein 7.3 g/dL (6.3-8.2)
== END ==
PROVIDERS: Family Provider Family Medicine; PCP Student in an Organized Health Care Education/Training Program; Referring Provider Family Medicine; Visit Provider Family Medicine
DX: E78.5 Hyperlipidemia, unspecified (principal); E11.319 Type 2 diabetes mellitus with unspecified diabetic retinopathy without macular edema; R74.01 Elevation of levels of liver transaminase levels
CPT/HCPCS: 36415; 80053; 83036

== ENCOUNTER → 2024-05-25 09:54 | Outpatient (CLI) | payer MEDICARE, SELFPAY ==
[2020-12-16 06:20] VITALS: BMI 25.4
[2024-05-25 11:18] LABS: Alanine Aminotransferase 15 IU/L (<35); Albumin 4.2 g/dL (3.5-5.0); Albumin Globulin Ratio 1.4 (1.0-2.8); Alkaline Phosphatase 56 U/L (38-126); Aspartate Aminotransferase 33 IU/L (14-36); BUN Creatinine Ratio 13.9 (6-22); Bilirubin Total 0.6 mg/dL (0.2-1.3); Blood Urea Nitrogen 11 mg/dL (7-17); Calcium 9.4 mg/dL (8.4-10.2); Carbon Dioxide 28 mmol/L (22-32); Chloride 101 mmol/L (98-107); Estimated Glomerular Filt Rate > 60 mL/min (>60); Glucose 139 mg/dL (80-110); HEMOLYSIS < 15 (0-50); Potassium 4.6 mmol/L (3.4-5.1); Sodium 135 mmol/L (137-145); Total Protein 7.2 g/dL (6.3-8.2)
[2024-05-25 11:22] LABS: Cholesterol 153 mg/dL (140-199); HDL Cholesterol 36 mg/dL (40-60); LDL Cholesterol Calculated 45 mg/dL (<100); Triglycerides 359 mg/dL (35-150)
[2024-05-25 12:01] LABS: Creatinine Urine Random 76.13 mg/dL
[2024-05-25 12:06] LABS: Microalbumin Urine Random < 0.6 mg/dL (0-1.6)
[2024-05-25 13:01] LABS: Hemoglobin A1C% w Est Avg Glu 6.1 % (4.0-6.0)
== END ==
PROVIDERS: Family Provider Family Medicine; PCP Student in an Organized Health Care Education/Training Program; Referring Provider Student in an Organized Health Care Education/Training Program; Visit Provider Student in an Organized Health Care Education/Training Program
DX: E11.319 Type 2 diabetes mellitus with unspecified diabetic retinopathy without macular edema (principal); E78.2 Mixed hyperlipidemia; R79.89 Other specified abnormal findings of blood chemistry
CPT/HCPCS: 36415; 80053; 80061; 82043; 82570; 83036

== ENCOUNTER → 2024-12-27 08:32 | Outpatient (CLI) | payer MEDICARE, SELFPAY ==
[2020-12-16 06:20] VITALS: BMI 25.4
--- NOTE | 2024-12-27 08:34 | DI.MG.S_ITS ---
MM screening mammo BI: 12/27/2024. BI-RADS: 1 CLINICAL: 69-year old female for bilateral screening mammogram. Tyrer-Cuzick lifetime risk of 4.8%. No personal or first-degree family history of breast cancer. PRIOR EXAMS 09/26/2020. MAMMOGRAPHY TECHNIQUE: 2D and 3D (tomosynthesis) digital mammographic views obtained, with additional images as needed for full coverage. Current study was also evaluated with a Computer Aided Detection (CAD) system. DENSITY C. The breasts are heterogeneously dense, which may obscure small masses. MAMMOGRAPHY FINDINGS Bilateral: No suspicious mass, asymmetry, microcalcification, or other abnormality seen. No significant change from comparison. IMPRESSION: * No evidence of malignancy. RECOMMENDATIONS Bilateral * Annual screening mammography. OVERALL ASSESSMENT CATEGORY BI-RADS-1: Negative. [employer] recommends annual screening mammography beginning at age 40 for women with average risk of breast cancer. ELECTRONICALLY SIGNED: Jennifer Lazcano M.D. on 12/27/2024 at 05:00:34 PM PT Interpreting Station ID: [id number]
== END ==
PROVIDERS: Family Provider Family Medicine; PCP Student in an Organized Health Care Education/Training Program; Referring Provider Student in an Organized Health Care Education/Training Program; Visit Provider Student in an Organized Health Care Education/Training Program
DX: Z12.31 Encounter for screening mammogram for malignant neoplasm of breast (principal); R92.333 Mammographic heterogeneous density, bilateral breasts
CPT/HCPCS: 77063; 77067

== ENCOUNTER → 2025-01-31 09:14 | Outpatient (CLI) | payer MEDICARE, SELFPAY ==
[2020-12-16 06:20] VITALS: BMI 25.4
[2025-01-31 09:41] LABS: Add Manual Diff / Slide Review NO; Basophils Absolute Auto 0 /uL (0-100); Basophils Percent Auto 0.6 % (0-2); Eosinophils Absolute Auto 100 /uL (0-450); Eosinophils Percent Auto 1.7 % (2-4); Hematocrit 43.2 % (36-46); Hemoglobin 14.8 g/dL (12.0-16.0); Lymphocytes Absolute Auto 2500 /uL (1100-4500); Lymphocytes Percent Auto 36.2 % (25-40); Mean Corpuscular HGB Conc 34.2 % (30-36); Mean Corpuscular Hemoglobin 29.2 PG (26-34); Mean Corpuscular Volume 85.2 fL (80-100); Monocytes Absolute Auto 300 /uL (0-900); Monocytes Percent Auto 4.8 % (3-14); Neutrophils Absolute Auto 4000 /uL (1500-7000); Neutrophils Percent Auto 56.7 % (50-75); Platelet Count 267 X10^3/uL (150-400); Red Blood Cell Count 5.07 X10^6/uL (4.0-5.2); Red Cell Distribution Width 13.2 % (11.6-14.8)
[2025-01-31 09:56] LABS: Hemoglobin A1C% w Est Avg Glu 6.7 % (4.0-6.0)
[2025-01-31 10:09] LABS: Alanine Aminotransferase 15 IU/L (<35); Albumin 4.6 g/dL (3.5-5.0); Albumin Globulin Ratio 1.9 (1.0-2.8); Alkaline Phosphatase 56 U/L (38-126); Aspartate Aminotransferase 33 IU/L (14-36); Bilirubin Total 0.8 mg/dL (0.2-1.3); Blood Urea Nitrogen 18 mg/dL (7-17); Calcium 9.6 mg/dL (8.4-10.2); Carbon Dioxide 26 mmol/L (22-32); Chloride 102 mmol/L (98-107); Cholesterol 154 mg/dL (140-199); Estimated Glomerular Filt Rate > 60 mL/min (>60); Globulin 2.4 g/dL (1.7-4.1); Glucose 174 mg/dL (70-99); HDL Cholesterol 38 mg/dL (40-60); HEMOLYSIS < 15 (0-50); LDL Cholesterol Calculated 84 mg/dL (<100); Potassium 4.5 mmol/L (3.4-5.1); Sodium 138 mmol/L (137-145); Triglycerides 161 mg/dL (35-150)
[2025-01-31 10:21] LABS: Creatinine Urine Random 24.21 mg/dL
[2025-01-31 10:29] LABS: Microalbumin Urine Random 3.3 mg/dL (0-1.6)
== END ==
PROVIDERS: Family Provider Family Medicine; PCP Student in an Organized Health Care Education/Training Program; Referring Provider Student in an Organized Health Care Education/Training Program; Visit Provider Student in an Organized Health Care Education/Training Program
DX: E11.9 Type 2 diabetes mellitus without complications (principal); I10 Essential (primary) hypertension
CPT/HCPCS: 36415; 80053; 80061; 82043; 82570; 83036; 85025

== ENCOUNTER → 2025-05-20 12:13 | Outpatient (CLI) | payer MEDICARE, SELFPAY ==
[2020-12-16 06:20] VITALS: BMI 25.4
== END ==
PROVIDERS: PCP Student in an Organized Health Care Education/Training Program; Visit Provider Registered Nurse
DX: R30.0 Dysuria (principal)
CPT/HCPCS: 87077; 87086; 87186

== ENCOUNTER → 2025-07-29 11:52 | Outpatient (CLI) | payer MEDICARE, SELFPAY ==
[2020-12-16 06:20] VITALS: BMI 25.4
[2025-07-29 13:13] LABS: Add Manual Diff / Slide Review NO; Hematocrit 43.3 % (36-46); Hemoglobin 15.1 g/dL (12.0-16.0); Lymphocytes Absolute Auto 2900 /uL (1100-4500); Mean Corpuscular HGB Conc 34.9 % (30-36); Mean Corpuscular Hemoglobin 29.0 PG (26-34); Mean Corpuscular Volume 83.3 fL (80-100); Platelet Count 272 X10^3/uL (150-400)
[2025-07-29 13:32] LABS: Alanine Aminotransferase 17 IU/L (<35); Albumin 4.3 g/dL (3.5-5.0); Albumin Globulin Ratio 1.5 (1.0-2.8); Alkaline Phosphatase 79 U/L (38-126); Blood Urea Nitrogen 13 mg/dL (7-17); Calcium 9.6 mg/dL (8.4-10.2); Carbon Dioxide 28 mmol/L (22-32); Chloride 102 mmol/L (98-107); Cholesterol 243 mg/dL (140-199); Estimated Glomerular Filt Rate > 60 mL/min (>60); Globulin 2.9 g/dL (1.7-4.1); Glucose 308 mg/dL (70-99); HDL Cholesterol 43 mg/dL (40-60); HEMOLYSIS < 15 (0-50); Hemoglobin A1C% w Est Avg Glu 8.3 % (4.0-6.0); Potassium 4.4 mmol/L (3.4-5.1); Sodium 137 mmol/L (137-145); Total Protein 7.2 g/dL (6.3-8.2); Triglycerides 415 mg/dL (35-150)
== END ==
PROVIDERS: PCP Student in an Organized Health Care Education/Training Program; Referring Provider Student in an Organized Health Care Education/Training Program; Visit Provider Student in an Organized Health Care Education/Training Program
DX: E11.9 Type 2 diabetes mellitus without complications (principal); R79.89 Other specified abnormal findings of blood chemistry; E11.3213 Type 2 diabetes mellitus with mild nonproliferative diabetic retinopathy with macular edema, bilateral; I10 Essential (primary) hypertension
CPT/HCPCS: 36415; 80053; 80061; 83036; 85025